=== PATIENT | male | born 1940 | race Caucasian/White ===

== ENCOUNTER 2020-11-25 15:25 | Inpatient (IN) | payer MEDICARE, MEDICAID ==
[~2020-11-25] VITALS: Ht 175.3 cm; Wt 89.3 kg
--- NOTE | 2020-11-25 16:00 | NUR ---
Admission Note with Justification for Admission to [facility] Patient admitted to [facility] for protective oversight for emergency stabilization of acute psychiatric crisis. Pt admitted from: Home via [facility] Mode of arrival: Secure Transport Accompanied By: Secure Transport Precipitating behaviors that initiated intake and admission: Patient was reported to be confused, agitated, delusional, hallucinating, removing IVs, and not cooperating with cares at [facility]. Description of failure of out patient attempts at stabilization in previous setting list behavior and medication trials: Medications and redirection reported to be ineffective. Behaviors and assessment findings upon admission: Patient was cooperative and pleasantly confused at admission. He was forgetful and asked after his belt and cap multiple times. He stated that it was July and that he lived with his mother and two sisters. Patient appeared to have some back acne and swollen scrotum, otherwise no skin issues noted. Otherwise lung sounds CTA, heart sounds irregular and strong, bowel sounds hypoactive on left side, mild edema in right hand, missing teeth and did not bring dentures, and mild hearing loss in both ears. Plan: Admit for protective oversight for adjustment and stabilization of medications, behaviors and mood. Intense treatment regimen including groups, medication adjustments, therapy, consistent regimen for ADL's, self care, and sleep hygiene. Daily monitoring by Inpatient staff, Psychiatry, and Medical Physician.
[2020-11-25] MEDS ORDERED: METHYL SALICYLATE/MENTHOL TOPICAL OINTMENT 57GM TUBE. TP PRN (18:00)
[2020-11-25] MEDS ORDERED: MAGNESIUM HYDROXIDE 2,400 MG/30 ML ORAL.SUSP. PO PRN (18:00)
[2020-11-25] MEDS ORDERED: AMOX500C PO (18:06)
[2020-11-25] MEDS ORDERED: CARV6.25 PO (18:06)
[2020-11-25] MEDS ORDERED: ASPI-630 PO (18:06)
[2020-11-25] MEDS ORDERED: FOLI20CA PO (18:06)
[2020-11-25] MEDS ORDERED: LIDO1ADH TP (18:06)
[2020-11-25] MEDS ORDERED: QUET25TA5 PO (18:06)
[2020-11-25] MEDS ORDERED: ATOR40TA PO (18:06)
[2020-11-25] MEDS ORDERED: LISI10TA16 PO (18:06)
[2020-11-25] MEDS ORDERED: AMLO-187 PO (18:06)
[2020-11-25] MEDS ORDERED: MULT-245 PO (18:06)
[2020-11-25] MEDS ORDERED: THIA100T57 PO (18:06)
[2020-11-25] MEDS ORDERED: TAMS0.4C97 PO (18:06)
[2020-11-25 19:25] VITALS: BP 133/86
[2020-11-25] MEDS: QUEtiapine 25 MG TABLET. PO SCH (20:34)
[2020-11-25] MEDS: ATORVASTATIN CALCIUM 20 MG TABLET PO SCH (20:35)
[2020-11-25] MEDS: AMOXICILLIN 250 MG CAPSULE PO SCH (20:35)
[2020-11-25] MEDS: THIAMINE 100 MG TABLET. PO SCH (20:35)
[2020-11-25] MEDS: CARVEDILOL 6.25 MG TABLET PO SCH (20:35)
[2020-11-25] MEDS: traZODone 50 MG TABLET. PO PRN (21:24)
--- NOTE | 2020-11-25 21:54 | PDOC ---
Exam Note: Gus Note: Please also refer to the separate dictated note~for this date of service dictated separately.~Patient seen individually. Discussed the patient with Nursing staff reviewed the chart.~Reviewed interim history and current functioning. Reviewed vital signs,~Labs/ Radiology~and current medications noted below. Continue current treatment with the changes noted in the dictated addendum note Assessment: Vital Signs/I&O: Vital Signs Date Time Temp Pulse Resp B/P (MAP) Pulse Ox O2 Delivery O2 Flow Rate FiO2 11/25/20 20:35 85 133/86 11/25/20 19:25 96.4 18 98 Current Medications: Meds: Current Medications Medications (Trade) Dose Ordered Sig/Evaristo Route PRN Reason Start Time Stop Time Status Last Admin Dose Admin Carvedilol (Coreg) 6.25 mg BIDWMEALS PO 11/25/20 18:30 11/25/20 20:35 Quetiapine Fumarate (SEROquel) 25 mg QHS PO 11/25/20 21:00 11/25/20 20:34 Amoxicillin (Amoxil) 500 mg [id number] PO 11/25/20 21:00 12/02/20 14:01 11/25/20 20:35 Atorvastatin Calcium (Lipitor) 40 mg QHS PO 11/25/20 21:00 11/25/20 20:35 Thiamine HCl (Vitamin B-1) 100 mg BID PO 11/25/20 21:00 11/25/20 20:35 Olanzapine (ZyPREXA ZYDIS) 2.5 mg PRN Q2HR PRN PO PSYCHOSIS 11/25/20 21:15 11/25/20 21:24 Trazodone HCl (Desyrel) 50 mg PRN QHS PRN PO INSOMNIA, MAY REPEAT IN 1HR 11/25/20 21:15 11/25/20 21:24 I have reviewed the current psychotropics carefully including drug interactions. Risk benefit ratio favors no change other than as noted in my dictated progress note. DONA BOTELLO MD Nov 25, 2020 21:54
--- NOTE | 2020-11-25 23:15 | NUR ---
Pt highly disorganized and restless. Pt wandering unit door checking, exit seeking and intrusive with other patients. Pt compliant with whole medications, asking how much he owes for the pills. Dr. Ramirez paged re pt's restlessness and inability to fall asleep. PRN Trazodone and Zyprexa administered at 2130. Pt taken to [facility] d/t the fact that pt repeatedly entered other pt's rooms. PRNs effective and pt currently sleeping on mat in quiet room. Will continue to monitor.
[2020-11-26] MEDS: traZODone 50 MG TABLET. PO PRN ×2 (01:35→19:52)
[2020-11-26 05:55] VITALS: BP 96/60
[2020-11-26] MEDS: AMOXICILLIN 250 MG CAPSULE PO SCH ×3 (07:54→19:51)
[2020-11-26] MEDS: CARVEDILOL 6.25 MG TABLET PO SCH ×2 (07:55→17:31)
[2020-11-26] MEDS: THIAMINE 100 MG TABLET. PO SCH ×2 (07:55→19:52)
[2020-11-26] MEDS: TAMSULOSIN 0.4 MG CAP.ER.24H. PO SCH (07:58)
[2020-11-26] MEDS: ASPIRIN CHEWABLE 81 MG TABLET. PO SCH (07:58)
[2020-11-26] MEDS: MULTIVITAMIN with MINERAL TABLET. PO SCH (07:58)
[2020-11-26] MEDS: amLODIPine BESYLATE 10 MG TABLET PO SCH (08:00)
--- NOTE | 2020-11-26 08:00 | NUR ---
Ubaldois given for restless behavior.
[2020-11-26] MEDS: LIDOCAINE (700MG/PATCH) PATCH. TD SCH (08:04)
[2020-11-26] MEDS: FOLIC ACID 1 MG TABLET PO SCH (08:05)
[2020-11-26 08:43] LABS: BASO # 0.1 x10^3/uL (0.0-0.2); BASO % 1 % (0-3); EOS # 0.2 x10^3/uL (0.0-0.7); EOS % 2 % (0-3); HEMATOCRIT 42.6 % (39.0-53.0); HEMOGLOBIN 14.8 g/dL (13.0-17.5); LYMPH # 2.2 x10^3/uL (1.0-4.8); LYMPH % 21 % (24-48); MEAN CORPUSCULAR HEMOGLOBIN 31 pg (25-35); MEAN CORPUSCULAR HGB CONC 35 g/dL (31-37); MEAN CORPUSCULAR VOLUME 91 fL (79-100); MONO # 1.1 x10^3/uL (0.0-1.1); MONO % 11 % (0-9); NEUT # 6.8 x10^3uL (1.8-7.7); NEUT % 65 % (31-73); PLATELET COUNT 737 x10^3/uL (140-400); RED BLOOD COUNT 4.71 x10^6/uL (4.30-5.70); WHITE BLOOD COUNT 10.5 x10^3/uL (4.0-11.0)
[2020-11-26 08:56] LABS: ALBUMIN 3.3 g/dL (3.4-5.0); ALBUMIN/GLOBULIN RATIO 0.7 (1.0-1.7); CALCIUM 9.6 mg/dL (8.5-10.1); CREATININE 1.4 mg/dL (0.7-1.3); GFR 48.5; POTASSIUM 3.7 mmol/L (3.5-5.1); TOTAL BILIRUBIN 0.3 mg/dL (0.2-1.0); TOTAL PROTEIN 8.1 g/dL (6.4-8.2)
[2020-11-26] MEDS ORDERED: LISINOPRIL 10 MG TABLET PO SCH (09:00)
[2020-11-26 09:23] LABS: % BANDS 2 % (0-9); % EOS 3 % (0-5); % LYMPHS 22 % (24-48); % MONOS 9 % (0-10); % SEGS 64 % (35-66)
[2020-11-26 09:24] LABS: PLT ESTIMATE INCREASED (ADEQUATE)
[2020-11-26 11:20] LABS: THYROID STIM HORMONE (TSH) 3.44 uIU/mL (0.358-3.740)
--- NOTE | 2020-11-26 13:30 | NUR ---
Zydis was effective in am. Is restless, door checking and looking for his car. Zydis given.
[2020-11-26 15:00] VITALS: BP 135/72
--- NOTE | 2020-11-26 16:38 | NUR ---
Pt has been [facility] for shift. Has been restless and exit seeking. Is asking for Harjit which he says is his girlfriend. Did lie down on couch and on mat for a short period. Has been compliant with meds and cares. Dr Aggarwal here to see pt. Staff had noticed swelling to scrotal area. New order for US.
[2020-11-26] MEDS: ATORVASTATIN CALCIUM 20 MG TABLET PO SCH (19:51)
[2020-11-26] MEDS: MIRTAZAPINE 7.5 MG TABLET. PO SCH (19:52)
[2020-11-26] MEDS: QUEtiapine 25 MG TABLET. PO SCH (19:52)
--- NOTE | 2020-11-26 21:14 | PDOC ---
Exam Note: Gus Note: Please also refer to the separate dictated note~for this date of service dictated separately.~Patient seen individually. Discussed the patient with Nursing staff reviewed the chart.~Reviewed interim history and current functioning. Reviewed vital signs,~Labs/ Radiology~and current medications noted below. Continue current treatment with the changes noted in the dictated addendum note Assessment: Vital Signs/I&O: Vital Signs Date Time Temp Pulse Resp B/P (MAP) Pulse Ox O2 Delivery O2 Flow Rate FiO2 11/26/20 17:31 98 135/72 11/26/20 15:00 98.0 20 97 Room Air I & O 11/25/20 11/25/20 11/26/20 15:00 23:00 07:00 Intake Total 480 ml Balance 480 ml Labs: Laboratory Tests Test 11/26/20 04:30 11/26/20 07:50 Coronavirus (PCR) Not detected (Not Detected) White Blood Count 10.5 x10^3/uL (4.0-11.0) Red Blood Count 4.71 x10^6/uL (4.30-5.70) Hemoglobin 14.8 g/dL (13.0-17.5) Hematocrit 42.6 % (39.0-53.0) Mean Corpuscular Volume 91 fL (79-100) Mean Corpuscular Hemoglobin 31 pg (25-35) Mean Corpuscular Hemoglobin Concent 35 g/dL (31-37) Red Cell Distribution Width 14.0 % (11.5-14.5) Platelet Count 737 x10^3/uL (140-400) H Neutrophils (%) (Auto) 65 % (31-73) Lymphocytes (%) (Auto) 21 % (24-48) L Monocytes (%) (Auto) 11 % (0-9) H Eosinophils (%) (Auto) 2 % (0-3) Basophils (%) (Auto) 1 % (0-3) Neutrophils # (Auto) 6.8 x10^3uL (1.8-7.7) Lymphocytes # (Auto) 2.2 x10^3/uL (1.0-4.8) Monocytes # (Auto) 1.1 x10^3/uL (0.0-1.1) Eosinophils # (Auto) 0.2 x10^3/uL (0.0-0.7) Basophils # (Auto) 0.1 x10^3/uL (0.0-0.2) Segmented Neutrophils % 64 % (35-66) Band Neutrophils % 2 % (0-9) Lymphocytes % 22 % (24-48) L Monocytes % 9 % (0-10) Eosinophils % 3 % (0-5) Platelet Estimate Increased (ADEQUATE) D-Dimer (Anabelle) 1.57 mg/L (0.00-0.50) H Sodium Level 141 mmol/L (136-145) Potassium Level 3.7 mmol/L (3.5-5.1) Chloride Level 103 mmol/L (98-107) Carbon Dioxide Level 26 mmol/L (21-32) Anion Gap 12 (6-14) Blood Urea Nitrogen 26 mg/dL (8-26) Creatinine 1.4 mg/dL (0.7-1.3) H Estimated GFR (Cockcroft-Gault) 48.5 BUN/Creatinine Ratio 19 (6-20) Glucose Level 127 mg/dL (70-99) H Calcium Level 9.6 mg/dL (8.5-10.1) Magnesium Level 2.0 mg/dL (1.8-2.4) Iron Level 44 ug/dL (65-175) L Total Iron Binding Capacity 314 ug/dL (250-450) Iron Saturation 14 % (15-34) L Total Bilirubin 0.3 mg/dL (0.2-1.0) Aspartate Amino Transferase (AST) 30 U/L (15-37) Alanine Aminotransferase (ALT) 43 U/L (16-63) Alkaline Phosphatase 146 U/L (46-116) H Total Protein 8.1 g/dL (6.4-8.2) Albumin 3.3 g/dL (3.4-5.0) L Albumin/Globulin Ratio 0.7 (1.0-1.7) L Triglycerides Level 100 mg/dL (0-150) Cholesterol Level 140 mg/dL (0-200) LDL Cholesterol, Calculated 85 mg/dL (0-100) VLDL Cholesterol, Calculated 20 mg/dL (0-40) Non-HDL Cholesterol Calculated 105 mg/dL (0-129) HDL Cholesterol 35 mg/dL (40-60) L Cholesterol/HDL Ratio 4.0 Thyroid Stimulating Hormone (TSH) 3.440 uIU/mL (0.358-3.740) Current Medications: Meds: Current Medications Medications (Trade) Dose Ordered Sig/Evaristo Route PRN Reason Start Time Stop Time Status Last Admin Dose Admin Aspirin (Aspirin Chewable) 81 mg DAILY PO 11/26/20 09:00 11/26/20 07:58 Tamsulosin HCl (Flomax) 0.4 mg DAILY PO 11/26/20 09:00 11/26/20 07:58 Folic Acid (Folic Acid) 1 mg DAILY PO 11/26/20 09:00 11/26/20 08:05 Lidocaine (Lidoderm) 1 patch DAILY TD 11/26/20 09:00 11/26/20 08:04 Multivitamins/ Calcium (Thera-M Plus) 1 tab DAILY PO 11/26/20 09:00 11/26/20 07:58 Olanzapine (ZyPREXA ZYDIS) 2.5 mg PRN Q2HR PRN PO PSYCHOSIS 11/25/20 21:15 11/26/20 17:31 Trazodone HCl (Desyrel) 50 mg PRN QHS PRN PO INSOMNIA, MAY REPEAT IN 1HR 11/25/20 21:15 11/26/20 19:52 Mirtazapine (Remeron) 7.5 mg QHS PO 11/26/20 21:00 11/26/20 19:52 I have reviewed the current psychotropics carefully including drug interactions. Risk benefit ratio favors no change other than as noted in my dictated progress note. Diagnosis: Problems: (1) Major neurocognitive disorder DONA BOTELLO MD Nov 26, 2020 21:14
--- NOTE | 2020-11-26 22:46 | NUR ---
Pt in [facility] this evening. Pt disorganized, restless, wandering and door checking. Compliant with whole medications. PRN Trazodone administered with HS medications. Pt taken to bed and laid down without incident and is currently sleeping.
--- NOTE | 2020-11-26 22:50 | PN ---
DATE: 11/26/2020 PSYCHIATRIC PROGRESS NOTE This note covers elements not covered in my initial note. SUBJECTIVE: I met with the patient evening of 11/26/2020 on telehealth rounds. Discussed with nursing staff, reviewed the chart. I had also been contacted by the nursing staff earlier in the day on account of the patient's agitation. He has been in the [facility]. This is a highly structured hallway with reduced stimuli. Discussed with PREET Montano. He has been more anxious, restless and paranoid. Nursing staff had called me late last night and we added Zyprexa and trazodone. He is needed the Zyprexa during the day today on account of psychotic symptoms, agitation and mood lability. He has been checking the doors. Slept 3-1/2 hours previous night. REVIEW OF SYSTEMS: No CV, , pulmonary, eye, ENT system symptoms on review. Reliability poor. He does have some scrotal enlargement, possibly inguinal hernia, will defer to Dr. Aggarwal. Additionally, he has a UTI, on Amoxil. MENTAL STATUS EXAM: Oriented to himself. Insight, judgment, recent and remote memory, attention, concentration, fund of knowledge poor, consistent with his diagnosis. IMPRESSION: Major neurocognitive disorder, Alzheimer, vascular with delusion, depression, behavioral disturbance; anxiety disorder, unspecified; impulse control disorder, unspecified; past history of alcohol abuse and urinary tract infection. PLAN: Continue current psychotropics including Seroquel, Zyprexa p.r.n. and trazodone p.r.n. Start Remeron 7.5 mg p.o. at bedtime. Consider adding Zoloft as an antidepressant. We will make further adjustments as clinically indicated. MAN Leena BOTELLO MD DR: CHRISTINA/roxy JOB#: [id number] / [id number]
[2020-11-27 00:06] LABS: THYROXINE 8.4 ug/dL (4.5-12.0)
--- NOTE | 2020-11-27 00:25 | HP ---
ADMIT DATE: 11/25/2020 This late entry date of service 11/25 covers elements not covered in my initial note 11/25. The patient was seen on telehealth rounds evening of 11/25 about 2 hours after he was admitted on our unit. Previously, I had discussed the patient with Mell Agarwal, diabetes education coordinator and with nursing staff and reviewed the referral from [facility]. IDENTIFYING DATA: The patient is an 80-year-old male referred to us from [facility] after he presented there from home on account of increasing confusion, disorganization, inability to take care of himself. Previously, he has been managed at home by his significant other, but after she , he was increasingly confused with a past history of alcohol abuse, progressive dementia, Alzheimer's vascular type. He was agitated, disruptive, dangerous in his behaviors, had failed outpatient psychiatric interventions resulting in this referral. CHIEF COMPLAINT: "I have been here many weeks." HISTORY OF PRESENT ILLNESS: The patient has a history of dementia, Alzheimer's vascular type. He has been living at home, getting progressively more confused and with a past history of alcohol abuse, but still being taken care of at home by Cristo, his significant other. Reportedly, significant other . The patient's memory deficits have increased. He was disorganized, agitated, aggressive with sleep and appetite changes, psychotic symptoms dangerous and taken to [facility] where he was medically stabilized and then referred to us for inpatient psychiatric stabilization. No clear history of bipolar disorder. He is also being increasingly more depressed. PAST PSYCHIATRIC HISTORY: As above. PAST MEDICAL HISTORY: Positive for hypertension, hyperlipidemia, BPH, chronic atrial fibrillation, pacemaker in place, hepatic cysts, bilateral total knee replacement, left hip replacement. History of UTI on Amoxil from [facility]. CODE STATUS: Full code. DRUG ALLERGIES: Negative. DIET: Mechanical soft cardiac diet. ACCU-CHEKS: None. Takes medications whole. Ambulates ad lulú standby assist. UA is awaited. CURRENT PSYCHOTROPICS: At admission, Seroquel 25 mg p.o. at bedtime. After I had evaluated the patient late at night, I was again called by the nursing staff. The patient was getting increasingly agitated, paranoid, psychotic, not sleeping and we did add Zyprexa 2.5 mg q. 2 hours p.r.n. psychosis, agitation, ____ mg in 24 hours and trazodone 50 mg at bedtime p.r.n., may repeat x 1 for insomnia while continuing the Seroquel. FAMILY HISTORY: Noncontributory. SOCIAL HISTORY: As noted above and a past history of alcohol abuse. REVIEW OF SYSTEMS: No CV, , pulmonary, eye, ENT system symptoms on review. Reliability poor. MENTAL STATUS EXAMINATION: The patient is oriented to himself. Insight, judgment, recent and remote memory, attention, concentration, fund of knowledge poor, consistent with his diagnosis. LABORATORY DATA: Reviewed. IMPRESSION: Major neurocognitive disorder; Alzheimer, vascular with delusion; depression; behavioral disturbance; anxiety disorder, unspecified; impulse control disorder, unspecified. Rest diagnoses as above including past history of alcohol abuse. PLAN: Admit to Geropsychiatry Unit at [facility]. I will see the patient daily individually from a psychiatric standpoint. Medical followup per Dr. Aggarwal/Dr. Dowling. Continue the patient on his current psychotropics, Zyprexa was started p.r.n. along with trazodone. Consider adding an SSRI agents. He does have a UTI and remains on Amoxil. Estimated length of stay 10-12 days. DISPOSITION: The patient will need a higher level of care than returning home by himself. MAN Leena BOTELLO MD DR: CHRISTINA/roxy JOB#: [id number] / [id number]
[2020-11-27 05:44] VITALS: BP 133/73
[2020-11-27] MEDS: CARVEDILOL 6.25 MG TABLET PO SCH ×2 (07:30→16:48)
[2020-11-27] MEDS: LIDOCAINE (700MG/PATCH) PATCH. TD SCH (07:30)
[2020-11-27] MEDS: FOLIC ACID 1 MG TABLET PO SCH (07:30)
[2020-11-27] MEDS: ASPIRIN CHEWABLE 81 MG TABLET. PO SCH (07:30)
[2020-11-27] MEDS: amLODIPine BESYLATE 10 MG TABLET PO SCH (07:31)
[2020-11-27] MEDS: TAMSULOSIN 0.4 MG CAP.ER.24H. PO SCH (07:31)
[2020-11-27] MEDS: THIAMINE 100 MG TABLET. PO SCH ×2 (07:31→20:01)
[2020-11-27] MEDS: AMOXICILLIN 250 MG CAPSULE PO SCH ×3 (07:31→20:01)
[2020-11-27] MEDS: MULTIVITAMIN with MINERAL TABLET. PO SCH (07:31)
[2020-11-27] MEDS: LACTOBACILLUS RHAMNOSUS GG 1 CAPSULE. PO SCH ×2 (07:32→20:02)
--- NOTE | 2020-11-27 11:32 | CONS ---
DATE OF CONSULTATION: 11/26/2020 REASON FOR CONSULTATION: Medical management. HISTORY OF PRESENT ILLNESS: The patient is an 80-year-old male patient who was admitted to [facility]. He apparently lives with his girlfriend of 15 years, on November 07. Basically, the patient was found at home intoxicated and sent to [facility]. He apparently was found to be extremely confused and demented, was found to have major neurocognitive disorder vascular with dementia, depression, behavioral disorder, anxiety and impulse control. He was admitted here for inpatient psychiatric stabilization. PAST MEDICAL HISTORY: Significant for hypertension, hyperlipidemia, benign prostatic hypertrophy, chronic atrial fibrillation and alcohol abuse. PAST SURGICAL HISTORY: Significant for bilateral total knee arthroplasty and left hip arthroplasty. He also had a permanent pacemaker placed. PAST PSYCHIATRIC HISTORY: Significant for dementia. FAMILY HISTORY: Noncontributory. SOCIAL HISTORY: He is apparently , has 2 daughters and 1 son. He does not smoke, but he said he would like to drink alcohol, at least 3 cans of beer a week. Does not use any drugs. 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 ALLERGIES: He has no known drug allergies. MEDICATIONS: He is currently on following medications: He is on amoxicillin 500 mg 3 times a day for UTI, tamsulosin 0.4 mg daily, atorvastatin calcium 40 mg at bedtime. He is on carvedilol 6.25 mg twice a day, amlodipine besylate 10 mg once a day, lisinopril 10 mg once a day, aspirin 81 mg once a day, quetiapine fumarate 25 mg at bedtime. He is on LidoPatch 1 topically daily for his lower back, folic acid 1 mg once a day, thiamine 100 mg twice a day, and multivitamin 1 tablet once a day. PHYSICAL EXAMINATION: GENERAL: On examining him, the patient looked well and was clearly in no apparent respiratory distress. There was no pallor, jaundice, cyanosis or thyromegaly. No jugular venous distention. No lower limb edema. VITAL SIGNS: Her heart rate was 85, blood pressure was 133/86, temperature was 97, respiratory rate was 18 and oxygen saturation was 97%. HEAD, EYES, EARS, NOSE AND THROAT: Normocephalic, atraumatic. NECK: Supple. HEART: Normal first and second heart sounds with no gallop, rub or murmur. CHEST: Showed central trachea, equal bilateral chest expansion, air entry, vesicular breath sounds. No crepitation or rhonchi. ABDOMEN: Distended, soft, nontender. No guarding or rigidity. No organomegaly. He has either right inguinal hernia versus right sided hydrocele. The patient did not allow us to examine him properly. NEUROLOGIC: He is definitely demented, but without any obvious lateralizing sign. All his cranial nerves are intact. EXTREMITIES: He moves extremities without difficulty. He ambulates without assistance or assistive devices. LABORATORY DATA: This morning showed a white cell count of 10,500, hemoglobin 15, hematocrit 43, MCV 91, and platelet count of 737,000 with the manual differential showed 65% polymorphs, ____ % lymphocytes, 11% monocytes. His D-dimer was high at 1.57. His chemistry showed a serum sodium 141, potassium 3.7, chloride 103, bicarbonate 26, anion gap of 12, BUN 26, creatinine 1.4, estimated GFR was 48.5 mL per minute, his glucose 127, calcium was 9.6, magnesium 2. Serum iron 44, TIBC 314 and iron saturation was 14. His total bilirubin, AST, ALT were normal. Alkaline phosphatase slightly elevated. Total protein was 8.1, albumin 3.3. Serum triglycerides were 100, total cholesterol 140, LDL was ____, VLDL was 20, HDL was 35, and the ratio was 4. His TSH was 3.44. ASSESSMENT AND PLAN: All in all, the patient seems to be medically stable. His vital signs are all within acceptable range. His lab works are all within acceptable range except that he has thrombocytosis, the platelet count of 737,000. He has impaired kidney function with an estimated GFR of 48.5 mL and creatinine of 1.4. I believe he is probably on excessive antihypertensive medication. I will probably discontinue at least lisinopril for now given impaired kidney function and follow him closely. Thank you Dr. Ramirez for allowing me to participate in the care of this patient. CODY CONROY MD DR: ALIE/roxy JOB#: [id number] / [id number]
--- NOTE | 2020-11-27 14:35 | RAD ---
EXAM: Scrotal sonogram. HISTORY: Swelling. TECHNIQUE: Guzmán scale and color Doppler sonographic imaging of the scrotum with spectral waveform elaine lysis was performed. COMPARISON: None. FINDINGS: The testes are normal in size and demonstrate normal blood flow. There is a 1.5 cm left epi didymal head cyst. There are small left greater than right hydroceles. There is no varicocele. IMPRESSION: 1. Small left greater than right hydroceles. 2. 1.5 cm left epididymal cyst. 3. Unremarkable testes. Electronically signed by: Milly Hitchcock MD (11/27/2020 2:32 PM) [facility]
[2020-11-27 15:00] VITALS: BP 148/80
--- NOTE | 2020-11-27 16:13 | NUR ---
Pt sleepy this am. Did not eat breakfast but woke up to take meds. Agnieszka given as pt to have US of scrotum and was not very receptive to assessment yesterday. Pt tolerated procedure well. Pt woke up to eat lunch but laid back down. Pt up now watching football game. Is in pleasant spirits.
[2020-11-27] MEDS: MIRTAZAPINE 7.5 MG TABLET. PO SCH (20:00)
[2020-11-27] MEDS: ATORVASTATIN CALCIUM 20 MG TABLET PO SCH (20:01)
[2020-11-27] MEDS: traZODone 50 MG TABLET. PO PRN ×2 (20:02→23:30)
[2020-11-27] MEDS: QUEtiapine 25 MG TABLET. PO SCH (20:02)
--- NOTE | 2020-11-27 21:09 | PDOC ---
Exam Note: Gus Note: Please also refer to the separate dictated note~for this date of service dictated separately.~Patient seen individually. Discussed the patient with Nursing staff reviewed the chart.~Reviewed interim history and current functioning. Reviewed vital signs,~Labs/ Radiology~and current medications noted below. Continue current treatment with the changes noted in the dictated addendum note Assessment: Vital Signs/I&O: Vital Signs Date Time Temp Pulse Resp B/P (MAP) Pulse Ox O2 Delivery O2 Flow Rate FiO2 11/27/20 16:48 75 148/80 11/27/20 15:00 98.6 16 98 11/26/20 15:00 Room Air I & O 11/26/20 11/26/20 11/27/20 15:00 23:00 07:00 Intake Total 720 ml 480 ml Balance 720 ml 480 ml Current Medications: Meds: Current Medications Medications (Trade) Dose Ordered Sig/Evaristo Route PRN Reason Start Time Stop Time Status Last Admin Dose Admin Lactobacillus Rhamnosus (Culturelle) 1 cap BID PO 11/27/20 09:00 11/27/20 20:02 I have reviewed the current psychotropics carefully including drug interactions. Risk benefit ratio favors no change other than as noted in my dictated progress note. Diagnosis: Problems: (1) Dementia in Alzheimer's disease with delusions (2) Dementia in Alzheimer's disease with depression (3) Dementia of the Alzheimer's type with early onset with behavioral disturbance (4) Dementia, vascular, with delusions (5) Dementia, vascular, with depression (6) Anxiety disorder, unspecified (7) Impulse control disorder, unspecified (8) UTI (urinary tract infection) (9) Major neurocognitive disorder DONA BOTELLO MD Nov 27, 2020 21:09
--- NOTE | 2020-11-27 22:15 | NUR ---
Pt has been calm and cooperative this evening. Compliant with HS medications and shower. Continues to be disorganized and delusional. No agitation or aggression. PRN Trazodone administered with HS medications. Pt currently sleeping.
--- NOTE | 2020-11-27 23:59 | NUR ---
Patient is in the hallway on assumption of care, ambulating around the unit. He is in pleasant spirits. Disorganized, confused. Less exit seeking than usual, and was easily redirectable. He was compliant with assessment and medications whole. No agitation. Denies any pain or discomfort. Patient appears to be sleeping comfortably at present time. Will continue to monitor.
[2020-11-28 05:47] VITALS: BP 137/88
[2020-11-28] MEDS: TAMSULOSIN 0.4 MG CAP.ER.24H. PO SCH (08:07)
[2020-11-28] MEDS: CARVEDILOL 6.25 MG TABLET PO SCH ×2 (08:07→16:45)
[2020-11-28] MEDS: LACTOBACILLUS RHAMNOSUS GG 1 CAPSULE. PO SCH ×2 (08:07→19:36)
[2020-11-28] MEDS: MULTIVITAMIN with MINERAL TABLET. PO SCH (08:08)
[2020-11-28] MEDS: amLODIPine BESYLATE 10 MG TABLET PO SCH (08:08)
[2020-11-28] MEDS: THIAMINE 100 MG TABLET. PO SCH ×2 (08:08→19:36)
[2020-11-28] MEDS: FOLIC ACID 1 MG TABLET PO SCH (08:08)
[2020-11-28] MEDS: AMOXICILLIN 250 MG CAPSULE PO SCH ×3 (08:08→19:36)
[2020-11-28] MEDS: ASPIRIN CHEWABLE 81 MG TABLET. PO SCH (08:08)
[2020-11-28] MEDS: SERTRALINE 25 MG TABLET. PO SCH (08:13)
[2020-11-28] MEDS: LIDOCAINE (700MG/PATCH) PATCH. TD SCH (08:26)
--- NOTE | 2020-11-28 10:48 | NUR ---
Nursing note: Pt up walking around the unit at shift change wandering into other pt's rooms. He is easily redirected. He is pleasant, compliant with meds whole and cooperative with assessment. He said his lower back hurt a little bit. Scheduled lidocaine patch applied to lower back with good effect. Pt is currently sitting quietly in his room. Will continue to monitor.
--- NOTE | 2020-11-28 12:01 | NUR ---
WEEKLY ACTIVITY THERAPY NOTE Date of Admission: 11/25/2020 Date of AT Assessment: TBD Precipitating behaviors that initiated intake and admission: Patient was reported to be confused, agitated, delusional, hallucinating, removing IVs, and not cooperating with cares at [facility]. Goal aimed: TBD Initial Goal: TBD Weekly progress towards goal: NA Group participation level: zero Weekly highlights: arrived to unit Behaviors observed: scan completed during group on Saturday Plan: meet/ assess Pt Beneficial adaptations:
--- NOTE | 2020-11-28 14:15 | NUR ---
Nursing note: Pt very exit seeking, continuously hitting the button to have the unit door unlocked as well as door checking. Pt is wandering around the unit looking for "Harjit" and is wandering into pt's rooms. Pt was difficult to redirect at that time. PRN given. Will continue to monitor.
--- NOTE | 2020-11-28 15:20 | NUR ---
ACTIVITY THERAPY ASSESSMENT Completed based on observation and interview. Pt. was in his room and agreeable to speak with STATISTICAL DEVELOPER. When asked what type of hobbies or leisure activities he is interested in, he struggled to come up with an answer but talked about how he has always liked to work. STATISTICAL DEVELOPER listed a couple leisure activities for Pt. to reply yes or no to. When asked about TV, he said "somewhat," reading, he said "I love to reading, " music, he laughed and said "country," exercises, he said "I love swimming." When asked what brought him here, he said he was working at [email or web address] for about four years and someone told him he needed to meet with someone at 2:45 today, here. When asked about being or having children, he said he was to Brenna and they had three children, one girl who was 17, a boy who was four years younger and another girl who is really really smart. Pt. said his family enjoys seeing relatives and as far as friends go, he said he gets along with everyone, no problems with anyone. Pt. believes he has been here for four years and thinks he is here for work. He thinks his is outside waiting to pick him up. Pt. has attended a couple groups and has been calm, focused, social and able to recall memory/ trivia answers well. Reports indicate he can be restless, delusional, wanders often and sometimes into other's room. He is generally redirectable. Initial goal aimed to increase engagement and socialization: Pt. will participate in at least one Activity Therapy group per day.
[2020-11-28 16:30] VITALS: BP 142/89
[2020-11-28] MEDS: ATORVASTATIN CALCIUM 20 MG TABLET PO SCH (19:36)
[2020-11-28] MEDS: QUEtiapine 25 MG TABLET. PO SCH (19:36)
[2020-11-28] MEDS: traZODone 50 MG TABLET. PO PRN ×3 (19:38→23:57)
--- NOTE | 2020-11-28 20:45 | PDOC ---
Exam Note: Gus Note: Please also refer to the separate dictated note~for this date of service dictated separately.~Patient seen individually. Discussed the patient with Nursing staff reviewed the chart.~Reviewed interim history and current functioning. Reviewed vital signs,~Labs/ Radiology~and current medications noted below. Continue current treatment with the changes noted in the dictated addendum note Assessment: Vital Signs/I&O: Vital Signs Date Time Temp Pulse Resp B/P (MAP) Pulse Ox O2 Delivery O2 Flow Rate FiO2 11/28/20 16:45 93 142/89 11/28/20 16:30 98.4 20 95 11/28/20 05:47 Room Air I & O 11/27/20 11/27/20 11/28/20 15:00 23:00 07:00 Intake Total 360 ml 340 ml Balance 360 ml 340 ml Current Medications: Meds: Current Medications Medications (Trade) Dose Ordered Sig/Evaristo Route PRN Reason Start Time Stop Time Status Last Admin Dose Admin Sertraline HCl (Zoloft) 25 mg DAILY PO 11/28/20 09:00 11/30/20 09:01 11/28/20 08:13 Mirtazapine (Remeron) 15 mg QHS PO 11/28/20 21:00 11/28/20 19:38 I have reviewed the current psychotropics carefully including drug interactions. Risk benefit ratio favors no change other than as noted in my dictated progress note. Diagnosis: Problems: (1) Major neurocognitive disorder (2) Impulse control disorder, unspecified (3) Anxiety disorder, unspecified (4) Dementia, vascular, with depression (5) Dementia, vascular, with delusions (6) Dementia in Alzheimer's disease with depression (7) Dementia in Alzheimer's disease with delusions (8) Dementia of the Alzheimer's type with early onset with behavioral disturbance DONA BOTELLO MD Nov 28, 2020 20:45
[2020-11-28] MEDS ORDERED: MIRTAZAPINE 15 MG TABLET PO SCH (21:00)
[2020-11-28] MEDS ORDERED: LORazepam 0.5 MG TABLET PO PRN (21:45)
[2020-11-28] MEDS: hydrOXYzine HCL 25 MG TABLET PO PRN (21:58)
--- NOTE | 2020-11-28 22:42 | NUR ---
Pt located in [facility] this evening. Pt highly disorganized, wandering, door checking and exit seeking. Pt asking staff "how to get out of here" and "where is the banda?" Compliant with whole medications. PRN Trazodone and Zyprexa administered with HS medications. Pt taken to bed where he was restless, repeatedly getting up and down and undressing. Repeat Trazodone administered at 2130. Pt became agitated and combative with redirection; yelling attempting to swing, kick, hit and bite staff. Pt taken back to [facility]. Dr. James fabian and orders received. PRN Atarax administered at 2200. Pt continues to be restless, exit seeking, door checking and asking for the banda to leave. Will continue to monitor.
--- NOTE | 2020-11-29 04:19 | NUR ---
Pt has been awake all night. Pt in [facility] wandering, door checking, asking for keys stating he needs to leave. Multiple PRNs have not been effective.
[2020-11-29 05:38] VITALS: BP 163/89
--- NOTE | 2020-11-29 08:08 | PDOC ---
Exam Note: Gus Note: This note is a late entry for 11/27/2020 covers elements not covered in my initial note. Subjective: The patient was reviewed on telehealth rounds in the evening of 11/27/2020 with Shanique OVIEDO. Discussed with nursing staff, reviewed the chart. The patient slept 8-1/4 hours previous night. Previous night, he was anxious, restless, delusional, confused. Received Zyprexa Zydis. He did have ultrasound of the scrotum because of the mass. Later in the day he appeared somewhat sedated, urinated on the floor. He remains anxious. Review of Systems: No CV, , pulmonary, eye, ENT system symptoms on review. Reliability poor. Mental Status Exam: The patient is oriented to himself. Insight and judgment, recent and remote memory, attention and concentration, fund of knowledge is poor consistent with his diagnosis mentioned. Laboratory Data: Reviewed. Impression: Major neurocognitive disorder Alzheimer vascular with delusion, depression, behavioral disturbance. Anxiety disorder unspecified. Impulse control disorder unspecified. Plan: No change from initial note. Start Zoloft 25 mg a day and in 3 days go up to 50 mg a day. Rest unchanged. Assessment: Vital Signs/I&O: Vital Signs Date Time Temp Pulse Resp B/P (MAP) Pulse Ox O2 Delivery O2 Flow Rate FiO2 11/29/20 05:38 98.2 93 18 163/89 (113) 96 11/28/20 05:47 Room Air I & O 11/28/20 11/28/20 11/29/20 15:00 23:00 07:00 Intake Total 600 ml 360 ml Balance 600 ml 360 ml Current Medications: Meds: Current Medications Medications (Trade) Dose Ordered Sig/Evaristo Route PRN Reason Start Time Stop Time Status Last Admin Dose Admin Acetaminophen (Tylenol) 650 mg PRN Q6HRS PRN PO MILD PAIN / TEMP > 100.3'F 11/25/20 18:00 Multi-Ingredient Ointment (Analgesic [place]) 1 addison PRN QID PRN TP MUSCLE PAIN 11/25/20 18:00 Al Hydroxide/Mg Hydroxide (Mylanta Plus Xs) 15 ml PRN AFTMEALHC PRN PO DYSPEPSIA 11/25/20 18:00 Magnesium Hydroxide (Milk Of Magnesia) 2,400 mg PRN QHS PRN PO CONSTIPATION 11/25/20 18:00 Amlodipine Besylate (Norvasc) 10 mg DAILY PO 11/26/20 09:00 11/28/20 08:08 Aspirin (Aspirin Chewable) 81 mg DAILY PO 11/26/20 09:00 11/28/20 08:08 Carvedilol (Coreg) 6.25 mg BIDWMEALS PO 11/25/20 18:30 11/28/20 16:45 Lisinopril (Prinivil) 10 mg DAILY PO 11/26/20 09:00 11/26/20 16:16 DC Quetiapine Fumarate (SEROquel) 25 mg QHS PO 11/25/20 21:00 11/28/20 19:36 Tamsulosin HCl (Flomax) 0.4 mg DAILY PO 11/26/20 09:00 11/28/20 08:07 Amoxicillin (Amoxil) 500 mg [id number] PO 11/25/20 21:00 12/02/20 14:01 11/28/20 19:36 Atorvastatin Calcium (Lipitor) 40 mg QHS PO 11/25/20 21:00 11/28/20 19:36 Folic Acid (Folic Acid) 1 mg DAILY PO 11/26/20 09:00 11/28/20 08:08 Lidocaine (Lidoderm) 1 patch DAILY TD 11/26/20 09:00 11/28/20 08:26 Multivitamins/ Calcium (Thera-M Plus) 1 tab DAILY PO 11/26/20 09:00 11/28/20 08:08 Thiamine HCl (Vitamin B-1) 100 mg BID PO 11/25/20 21:00 11/28/20 19:36 Olanzapine (ZyPREXA ZYDIS) 2.5 mg PRN Q2HR PRN PO PSYCHOSIS 11/25/20 21:15 11/28/20 19:39 Trazodone HCl (Desyrel) 50 mg PRN QHS PRN PO INSOMNIA, MAY REPEAT IN 1HR 11/25/20 21:15 11/28/20 23:57 Mirtazapine (Remeron) 7.5 mg QHS PO 11/26/20 21:00 11/28/20 12:23 DC 11/27/20 20:00 Lactobacillus Rhamnosus (Culturelle) 1 cap BID PO 11/27/20 09:00 11/28/20 19:36 Sertraline HCl (Zoloft) 25 mg DAILY PO 11/28/20 09:00 11/30/20 09:01 11/28/20 08:13 Sertraline HCl (Zoloft) 50 mg DAILY PO 12/01/20 09:00 Mirtazapine (Remeron) 15 mg QHS PO 11/28/20 21:00 11/28/20 19:38 Hydroxyzine HCl (Atarax) 25 mg PRN Q2HR PRN PO ABDOMINAL CRAMPS 11/28/20 21:45 11/28/20 21:58 Lorazepam (Ativan) 0.5 mg PRN Q4HRS PRN PO ANXIETY / AGITATION 11/28/20 21:45 11/29/20 21:45 Current Medications Medications (Trade) Dose Ordered Sig/Evaristo Route PRN Reason Start Time Stop Time Status Last Admin Dose Admin Sertraline HCl (Zoloft) 25 mg DAILY PO 11/28/20 09:00 11/30/20 09:01 11/28/20 08:13 Mirtazapine (Remeron) 15 mg QHS PO 11/28/20 21:00 11/28/20 19:38 Hydroxyzine HCl (Atarax) 25 mg PRN Q2HR PRN PO ABDOMINAL CRAMPS 11/28/20 21:45 11/28/20 21:58 I have reviewed the current psychotropics carefully including drug interactions. Risk benefit ratio favors no change other than as noted in my dictated progress note. Diagnosis: Problems: (1) Major neurocognitive disorder (2) Impulse control disorder, unspecified (3) Anxiety disorder, unspecified (4) Dementia, vascular, with depression (5) Dementia, vascular, with delusions (6) Dementia in Alzheimer's disease with depression (7) Dementia in Alzheimer's disease with delusions (8) Dementia of the Alzheimer's type with early onset with behavioral disturbance DONA BOTELLO MD Nov 29, 2020 08:08
--- NOTE | 2020-11-29 08:11 | PDOC ---
Exam Note: Gus Note: This note is a late entry for 11/28/2020 covers elements not covered in my initial note. Subjective: The patient was reviewed on telehealth rounds in the morning of 11/28/2020 for a treatment team meeting with Mell Larios and Denise (social service coordinator), Mikayla, activity therapy and Radha OVIEDO. Discussed with nursing staff, reviewed the chart. The patient slept 4 hours previous night. Appetite is 75%. Reviewed history, progress at some length. He does have emergency guardian. He has been wandering, redirectable. He did attend groups in the morning, calmer but by the evening he was quite agitated. In fact I got a call around 9.30 p.m. well after my rounds. The patient was agitated and had been placed in the [facility] per Shanique OVIEDO. He was aggressive towards staff and had failed the addition of Zyprexa p.r.n. We have added hydroxyzine p.r.n. along with Ativan the latter p.r.n. for the next 24 hours only and he will also receive the h.s. trazodone early to help him sleep. Review of Systems: No CV, , pulmonary, eye, ENT system symptoms on review. R eliability poor. Mental Status Exam: The patient is oriented to himself. He is quite agitated, anxious, labile in his mood. Insight and judgment, recent and remote memory, attention and concentration, fund of knowledge is poor consistent with his diagn osis mentioned. No suicidal or homicidal ideation. Laboratory Data: Reviewed. Impression: Major neurocognitive disorder Alzheimer vascular with delusion, depression, behavioral disturbance. Anxiety disorder unspecified. Impulse control disorder unspecified. Plan: No change from initial note. We will go ahead and increase the Remeron to 15 mg h.s. Continue rest of the psychotropics unchanged. Make further adjustments as clinically indicated, Seroquel 25 mg h.s., Zyprexa p.r.n., Zoloft to be gradually increased. Rest unchanged. Assessment: Vital Signs/I&O: Vital Signs Date Time Temp Pulse Resp B/P (MAP) Pulse Ox O2 Delivery O2 Flow Rate FiO2 11/29/20 05:38 98.2 93 18 163/89 (113) 96 11/28/20 05:47 Room Air I & O 11/28/20 11/28/20 11/29/20 15:00 23:00 07:00 Intake Total 600 ml 360 ml Balance 600 ml 360 ml Current Medications: Meds: Current Medications Medications (Trade) Dose Ordered Sig/Evaristo Route PRN Reason Start Time Stop Time Status Last Admin Dose Admin Acetaminophen (Tylenol) 650 mg PRN Q6HRS PRN PO MILD PAIN / TEMP > 100.3'F 11/25/20 18:00 Multi-Ingredient Ointment (Analgesic [place]) 1 addison PRN QID PRN TP MUSCLE PAIN 11/25/20 18:00 Al Hydroxide/Mg Hydroxide (Mylanta Plus Xs) 15 ml PRN AFTMEALHC PRN PO DYSPEPSIA 11/25/20 18:00 Magnesium Hydroxide (Milk Of Magnesia) 2,400 mg PRN QHS PRN PO CONSTIPATION 11/25/20 18:00 Amlodipine Besylate (Norvasc) 10 mg DAILY PO 11/26/20 09:00 11/28/20 08:08 Aspirin (Aspirin Chewable) 81 mg DAILY PO 11/26/20 09:00 11/28/20 08:08 Carvedilol (Coreg) 6.25 mg BIDWMEALS PO 11/25/20 18:30 11/28/20 16:45 Lisinopril (Prinivil) 10 mg DAILY PO 11/26/20 09:00 11/26/20 16:16 DC Quetiapine Fumarate (SEROquel) 25 mg QHS PO 11/25/20 21:00 11/28/20 19:36 Tamsulosin HCl (Flomax) 0.4 mg DAILY PO 11/26/20 09:00 11/28/20 08:07 Amoxicillin (Amoxil) 500 mg [id number] PO 11/25/20 21:00 12/02/20 14:01 11/28/20 19:36 Atorvastatin Calcium (Lipitor) 40 mg QHS PO 11/25/20 21:00 11/28/20 19:36 Folic Acid (Folic Acid) 1 mg DAILY PO 11/26/20 09:00 11/28/20 08:08 Lidocaine (Lidoderm) 1 patch DAILY TD 11/26/20 09:00 11/28/20 08:26 Multivitamins/ Calcium (Thera-M Plus) 1 tab DAILY PO 11/26/20 09:00 11/28/20 08:08 Thiamine HCl (Vitamin B-1) 100 mg BID PO 11/25/20 21:00 11/28/20 19:36 Olanzapine (ZyPREXA ZYDIS) 2.5 mg PRN Q2HR PRN PO PSYCHOSIS 11/25/20 21:15 11/28/20 19:39 Trazodone HCl (Desyrel) 50 mg PRN QHS PRN PO INSOMNIA, MAY REPEAT IN 1HR 11/25/20 21:15 11/28/20 23:57 Mirtazapine (Remeron) 7.5 mg QHS PO 11/26/20 21:00 11/28/20 12:23 DC 11/27/20 20:00 Lactobacillus Rhamnosus (Culturelle) 1 cap BID PO 11/27/20 09:00 11/28/20 19:36 Sertraline HCl (Zoloft) 25 mg DAILY PO 11/28/20 09:00 11/30/20 09:01 11/28/20 08:13 Sertraline HCl (Zoloft) 50 mg DAILY PO 12/01/20 09:00 Mirtazapine (Remeron) 15 mg QHS PO 11/28/20 21:00 11/28/20 19:38 Hydroxyzine HCl (Atarax) 25 mg PRN Q2HR PRN PO ABDOMINAL CRAMPS 11/28/20 21:45 11/28/20 21:58 Lorazepam (Ativan) 0.5 mg PRN Q4HRS PRN PO ANXIETY / AGITATION 11/28/20 21:45 11/29/20 21:45 Current Medications Medications (Trade) Dose Ordered Sig/Evaristo Route PRN Reason Start Time Stop Time Status Last Admin Dose Admin Sertraline HCl (Zoloft) 25 mg DAILY PO 11/28/20 09:00 11/30/20 09:01 11/28/20 08:13 Mirtazapine (Remeron) 15 mg QHS PO 11/28/20 21:00 11/28/20 19:38 Hydroxyzine HCl (Atarax) 25 mg PRN Q2HR PRN PO ABDOMINAL CRAMPS 11/28/20 21:45 11/28/20 21:58 I have reviewed the current psychotropics carefully including drug interactions. Risk benefit ratio favors no change other than as noted in my dictated progress note. Diagnosis: Problems: (1) Major neurocognitive disorder (2) Impulse control disorder, unspecified (3) Anxiety disorder, unspecified (4) Dementia, vascular, with depression (5) Dementia, vascular, with delusions (6) Dementia in Alzheimer's disease with depression (7) Dementia in Alzheimer's disease with delusions (8) Dementia of the Alzheimer's type with early onset with behavioral disturbance DONA BOTELLO MD Nov 29, 2020 08:11
[2020-11-29] MEDS: CARVEDILOL 6.25 MG TABLET PO SCH ×2 (08:47→17:43)
[2020-11-29] MEDS: TAMSULOSIN 0.4 MG CAP.ER.24H. PO SCH (08:47)
[2020-11-29] MEDS: MULTIVITAMIN with MINERAL TABLET. PO SCH (08:48)
[2020-11-29] MEDS: FOLIC ACID 1 MG TABLET PO SCH (08:48)
[2020-11-29] MEDS: AMOXICILLIN 250 MG CAPSULE PO SCH ×3 (08:48→19:47)
[2020-11-29] MEDS: SERTRALINE 25 MG TABLET. PO SCH (08:48)
[2020-11-29] MEDS: amLODIPine BESYLATE 10 MG TABLET PO SCH (08:48)
[2020-11-29] MEDS: ASPIRIN CHEWABLE 81 MG TABLET. PO SCH (08:48)
[2020-11-29] MEDS: THIAMINE 100 MG TABLET. PO SCH ×2 (08:48→19:46)
[2020-11-29] MEDS: LACTOBACILLUS RHAMNOSUS GG 1 CAPSULE. PO SCH ×2 (08:48→19:47)
[2020-11-29] MEDS: LIDOCAINE (700MG/PATCH) PATCH. TD SCH (08:49)
--- NOTE | 2020-11-29 12:30 | NUR ---
Nursing note: Pt laying on the floor in the quiet sarkar at shift change. He was talking as if he was having a conversation with someone not there. Pt is med compliant and cooperative this morning, but has been very restless and wandering around the unit. Pt is currently sitting in his room eating lunch. Will continue to monitor.
--- NOTE | 2020-11-29 15:08 | NUR ---
PSYCHOSOCIAL ASSESSMENT ADMISSION DATE: 11/25/20 CONTACT INFORMATION: DPOA/Guardian Contact Name: Maxwell Martinez- Temporary guardian Contact Phone #: [phone] ETHNIC ORIGIN: REASONS FOR ADMISSION: Aggressive Agitated Alcohol Abuse Anxiety/Panic Combative Confusion/Disoriented Delusions Hallucinations Poor impulse control Sig. Change Sleep ADDITIONAL ADMISSION COMMENTS: Per intake record, hallucinating, delusional, aggressive during rosa m care, confused, restless, nonsensical speech, anxious, insomnia, poor safety, pulled out IV, uncooperative, agitated, and yelling out. REASON FOR ADMISSION IN PATIENT/FAMILY'S OWN WORDS: Per Scottie, " Love and caring about her and my family." Per guardian, Scottie's significant other, Harjit Moreno, was providing care to him at the mobile home where they lived together. Harjit had medical issues and around 11/07/20. Scottie is unsafe to live alone with his level of memory impairment. PATIENT/FAMILY EXPECTATIONS FOR ADMISSION: Per Scottie, "I hope to conquer even better and us get along." Per guardian, determining Scottie's financial situation in order to pay for alf care. LIVING SITUATION: Patient lives with: Home, previously with girlfriend who recently Address: [facility] [address] [place] [id number] FAMILY RELATIONS: Marital Status: # of Marriages: 1 # of Children: 3 [facility] Family Support: Uninvolved Additional Comments r/t Family: Scottie spoke of being to Brenna Vazquez and having three children with her. Scottie stated they were when he was 16 and Brenna was 15. Their daughter Tim lives in [place] and Scottie shared that she has a learning disability or mental illness. Daughter, Emiliana, lives in [place]. Son, Sage Singh lives in [place]. SIGNIFICANT PSYCHIATRIC/MEDICAL HISTORY: Psychiatric/Treatment History: Scottie reported that he had some counseling after his father . Scottie also reported that he has attended AA support groups. Pertinent Family History: Scottie thinks his Dad "may have drank to much." Scottie also spoke of his son, Sage Singh, having alcohol dependence. Scottie reported his brother, Sergio, had a temper. HISTORICAL DATA: Childhood Environment: Stressful Childhood Environment Additional Comments: Scottie reported being born in [facility] to Nahun and Yanique Son. Scottie's father worked as a hospital wax pattern assembler but when Scottie was a young boy. 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 Scottie reported being the seventh child born on 8. He stated he had siblings named Cindy, Violet, Fredi, Sergio, Yumiko, Scottie, Silvia, and Francisca. Trauma History: None reported. Scottie denied being abused or neglected throughout his life. Drug Abuse History last 12 months: None reported. Comment: Scottie reported drinking three beers on the weekend. He denied smoking or using recreational drugs. 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 service: None Methodist background: Scottie reported being a member of the [employer] in [place]. He stated he has not been attending services. Sexual orientation: Heterosexual Educational Level: Scottie reported graduating high school. Past/Present Interests/Hobbies: Scottie reported enjoying basketball, swimming, road racing older cars, and [employer] music. Financial support/resources: Mcfp/Pension Social Security Monthly income: unknown Person handling finances: Maxwell Martinez Do you have a history of legal problems: None Cultural considerations: None reported SOCIAL RELATIONSHIPS-CURRENT/PAST: Psychiatrist: None PCP: Dr. Tanner Khan Counselor/Therapist: None Veterans' Administration: N/A Support Group: AA support in past School Janitor/Silhouette Artist: None STRENGTHS & WEAKNESSES: Patient's strengths: Ambulatory Approachable Other patient strengths: Able to express basic needs Patient's weaknesses: Poor family support Health problems Other patient weaknesses: Impaired memory PRELIMINARY PLAN OF TREATMENT: Preliminary plan: Dec. Anxiety/Panic Dec. Hallucination/Delus Medication Stabilization Monitor Med Effects Control abnormal behavior Dec. Outbursts Dec. Aggression Other preliminary treatment comments: Scottie will be encouraged to attend SW and recreational therapy groups while on the unit. DISCHARGE PLANNING: Discharge planning/disposition: Placement Needed Additional discharge needs identified: Scottie will need placement due to memory impairment. ADDITIONAL INFORMATION: Other Pertinent Data: SW met with Scottie on 11/29/20 to support related to recent admission and complete psychosocial assessment. Scottie was alert and oriented to himself only. He recalled the date as May 25, 2010 and believed he was at [facility] in [facility]. He spoke about his mother as if she were alive and believed he was around the age of 38. Scottie also spoke as if his children were still small. While he appeared to recall some remote history, SW is unsure of the accuracy of the information Scottie provided. Call placed to temporary guardian, Maxwell Martinez, who reported that most recently Scottie had lived in a mobile home with his significant other, Harjit Tiffanie, who cared for Scottie. Harjit around 11/07/20. Scottie is unsafe to reside alone with the current level of memory impairment he has. Maxwell is currently attempting to work with Scottie's bank trying to determine finances in order to determine if a medicaid application will have to be filled out in order to pay for alf care for Scottie. Maxwell declined to be involved in treatment team meeting but does want to know recommendations regarding Scottie.
[2020-11-29 16:14] VITALS: BP 131/78
--- NOTE | 2020-11-29 16:31 | TX PLAN ---
Interdisciplinary Tx Plan Admission Information Nov 25, 2020 at 15:25 Legal Status (on Admission): Voluntary, Court Appointed Guardian, Court Appointed Conservat DPOA/Guardian Name: Maxwell Martinez- guardian Contact Verified Code Status: Full Code Allergies: Coded Allergies: No Known Drug Allergies (Unverified , 11/25/20) Estimated Length of Stay: 14 Diagnoses Primary Diagnosis: Major neurocognitive d/o, vascular, alzheimers with delusions, depresion, BD; Anxiety d/o unspecified; impulse control d/o Reasons for Admission: Aggressive, Delusions, Agitated, Alcohol Abuse, Sig. Change Sleep, Anxiety/Panic, Hallucinations, Combative, Confusion/Disoriented, Poor impulse control Problem in Patient's Words: Per Scottie, " Love and caring about her and my family." Per guardian, unsafe to live at home alone with level of confusion and memory impairment. Additional Admission Comments: Per intake record, hallucinating, delusional, aggressive during ro[facility] care, confused, restless, nonsensical speech, anxious, insomnia, poor safety, pulled out IV, uncooperative, agitated, and yelling out. Problems Active Problems: Confused Delsuional Hallucinating Wandering, intrusive, restless Poor sleep Inactive Problems: Adequate meal intake Compliant with meds Pt Strengths/Limitations Ability for [place]: Poor Cognitive Functioning/Ability: Poor Communication Skills/Ability: Fair Financial Resources: Fair Insight/Judgement: Poor Intellectual Ability: Fair Physical Health: Fair Social Skills: Fair Stability in Family: Poor Verbal Skills: Fair Discharge Criteria Discharge Criteria: Adequate arrangements @DC, Improved behavior, Improved mood/thought Preliminary Discharge Plan Preliminary DC Plan: Placement Needed Special Precautions Special Precautions: Agitation/Assault Fall Risk: High Initial D/C Plan Scottie will need placement. [facility] is in the process of determining if a medicaid applincation will need to be filed to pay for [facility] care. Identified Discharge Needs: Scottie will need placement due to memory impairment. Currently Utilized Resources Currently Utilized Resources/P: PCP Referrals Community Resources: Placement referral PCP Psychiatry if available Identified Problems/Hx/Goals Objectives/Short-Term Goals Short Term Goals: Control abnormal behavior, Dec. Aggression, Dec. Anxiety/Panic, Dec. Hallucination/Delus, Dec. Outbursts, Medication Stabilization, Monitor Med Effects Short Term Goals in Patient's: Melvin Rubin, "I hope to conquer even better and us get along." Interventions/Frequency Staff Interventions/Frequency&: Nursing to provide routine safety checks, medication administration, and adl support. Psychiatry thre times weekly. SW visits twice weekly. Recreational and SW groups as Scottie will participate. 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 Social: Scottie enjoys basketball, swimming, and country music. Education: Scottie reported graduating high school. Community Follow-up PCP Psychiatry if available Placement referral Community Provider/Family Inpu: Treatment team meeting was held on 11/28/20. talent advisor of treatment plan was enterred on 11/29/20. Maxwell, guardian, declined to be involed in team meetings but does want to know any recommendations concerning Scottie. 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
[2020-11-29] MEDS: QUEtiapine 25 MG TABLET. PO SCH (19:46)
[2020-11-29] MEDS: ATORVASTATIN CALCIUM 20 MG TABLET PO SCH (19:47)
[2020-11-29] MEDS: AMITRIPTYLINE HCL 25 MG TABLET PO SCH (19:48)
[2020-11-29] MEDS: MELATONIN 3 MG TABLET PO SCH (19:48)
--- NOTE | 2020-11-29 20:43 | PDOC ---
Exam Note: Gus Note: Please also refer to the separate dictated note~for this date of service dictated separately.~Patient seen individually. Discussed the patient with Nursing staff reviewed the chart.~Reviewed interim history and current functioning. Reviewed vital signs,~Labs/ Radiology~and current medications noted below. Continue current treatment with the changes noted in the dictated addendum note Assessment: Vital Signs/I&O: Vital Signs Date Time Temp Pulse Resp B/P (MAP) Pulse Ox O2 Delivery O2 Flow Rate FiO2 11/29/20 17:43 68 131/78 11/29/20 16:14 97.3 18 98 11/28/20 05:47 Room Air I & O 11/28/20 11/28/20 11/29/20 15:00 23:00 07:00 Intake Total 600 ml 360 ml Balance 600 ml 360 ml Current Medications: Meds: Current Medications Medications (Trade) Dose Ordered Sig/Evaristo Route PRN Reason Start Time Stop Time Status Last Admin Dose Admin Acetaminophen (Tylenol) 650 mg PRN Q6HRS PRN PO MILD PAIN / TEMP > 100.3'F 11/25/20 18:00 Multi-Ingredient Ointment (Analgesic [place]) 1 addison PRN QID PRN TP MUSCLE PAIN 11/25/20 18:00 Al Hydroxide/Mg Hydroxide (Mylanta Plus Xs) 15 ml PRN AFTMEALHC PRN PO DYSPEPSIA 11/25/20 18:00 Magnesium Hydroxide (Milk Of Magnesia) 2,400 mg PRN QHS PRN PO CONSTIPATION 11/25/20 18:00 Amlodipine Besylate (Norvasc) 10 mg DAILY PO 11/26/20 09:00 11/29/20 08:48 Aspirin (Aspirin Chewable) 81 mg DAILY PO 11/26/20 09:00 11/29/20 08:48 Carvedilol (Coreg) 6.25 mg BIDWMEALS PO 11/25/20 18:30 11/29/20 17:43 Lisinopril (Prinivil) 10 mg DAILY PO 11/26/20 09:00 11/26/20 16:16 DC Quetiapine Fumarate (SEROquel) 25 mg QHS PO 11/25/20 21:00 11/29/20 19:46 Tamsulosin HCl (Flomax) 0.4 mg DAILY PO 11/26/20 09:00 11/29/20 08:47 Amoxicillin (Amoxil) 500 mg [id number] PO 11/25/20 21:00 12/02/20 14:01 11/29/20 19:47 Atorvastatin Calcium (Lipitor) 40 mg QHS PO 11/25/20 21:00 11/29/20 19:47 Folic Acid (Folic Acid) 1 mg DAILY PO 11/26/20 09:00 11/29/20 08:48 Lidocaine (Lidoderm) 1 patch DAILY TD 11/26/20 09:00 11/29/20 08:49 Multivitamins/ Calcium (Thera-M Plus) 1 tab DAILY PO 11/26/20 09:00 11/29/20 08:48 Thiamine HCl (Vitamin B-1) 100 mg BID PO 11/25/20 21:00 11/29/20 19:46 Olanzapine (ZyPREXA ZYDIS) 2.5 mg PRN Q2HR PRN PO PSYCHOSIS 11/25/20 21:15 11/28/20 19:39 Trazodone HCl (Desyrel) 50 mg PRN QHS PRN PO INSOMNIA, MAY REPEAT IN 1HR 11/25/20 21:15 11/28/20 23:57 Mirtazapine (Remeron) 7.5 mg QHS PO 11/26/20 21:00 11/28/20 12:23 DC 11/27/20 20:00 Lactobacillus Rhamnosus (Culturelle) 1 cap BID PO 11/27/20 09:00 11/29/20 19:47 Sertraline HCl (Zoloft) 25 mg DAILY PO 11/28/20 09:00 11/30/20 09:01 11/29/20 08:48 Sertraline HCl (Zoloft) 50 mg DAILY PO 12/01/20 09:00 Mirtazapine (Remeron) 15 mg QHS PO 11/28/20 21:00 11/29/20 18:47 DC 11/28/20 19:38 Hydroxyzine HCl (Atarax) 25 mg PRN Q2HR PRN PO ABDOMINAL CRAMPS 11/28/20 21:45 11/28/20 21:58 Lorazepam (Ativan) 0.5 mg PRN Q4HRS PRN PO ANXIETY / AGITATION 11/28/20 21:45 11/29/20 21:45 Amitriptyline HCl (Elavil) 25 mg QHS PO 11/29/20 21:00 11/29/20 19:48 Melatonin (Melatonin) 3 mg QHS PO 11/29/20 21:00 11/29/20 19:48 Current Medications Medications (Trade) Dose Ordered Sig/Evaristo Route PRN Reason Start Time Stop Time Status Last Admin Dose Admin Mirtazapine (Remeron) 15 mg QHS PO 11/28/20 21:00 11/29/20 18:47 DC 11/28/20 19:38 Hydroxyzine HCl (Atarax) 25 mg PRN Q2HR PRN PO ABDOMINAL CRAMPS 11/28/20 21:45 11/28/20 21:58 Amitriptyline HCl (Elavil) 25 mg QHS PO 11/29/20 21:00 11/29/20 19:48 Melatonin (Melatonin) 3 mg QHS PO 11/29/20 21:00 11/29/20 19:48 I have reviewed the current psychotropics carefully including drug interactions. Risk benefit ratio favors no change other than as noted in my dictated progress note. Diagnosis: Problems: (1) Major neurocognitive disorder (2) Impulse control disorder, unspecified (3) Anxiety disorder, unspecified (4) Dementia, vascular, with depression (5) Dementia, vascular, with delusions (6) Dementia in Alzheimer's disease with depression (7) Dementia in Alzheimer's disease with delusions (8) Dementia of the Alzheimer's type with early onset with behavioral disturbance DONA BOTELLO MD Nov 29, 2020 20:43
--- NOTE | 2020-11-29 21:45 | NUR ---
Patient was in the west hallway at the beginning of the shift. He was pulling on the door handles and thought he could hear "Tari" talking to him. He would look down the hallway and anytime he saw someone he said it was Tari coming to pick him up. Nurse showed him laundry room and day room and that there was no one in there and yet he continued to knock on the doors and call for Tari. Patient compliant with medications, interactive and social however only oriented to himself and forgetful. He stated we are in [facility] and he is waiting for a ride home. At one point patient told this nurse "you and your need to walk over", and stated I was his neighbor. Patient eventually fell asleep in the chair at around 2130 and was guided to his room to lay down. This was patients first night on melatonin and amitriptyline to help with his insomnia. Will continue to monitor.
[2020-11-30 05:48] VITALS: BP 159/90
[2020-11-30] MEDS: FOLIC ACID 1 MG TABLET PO SCH (08:39)
[2020-11-30] MEDS: AMOXICILLIN 250 MG CAPSULE PO SCH ×3 (08:39→19:44)
[2020-11-30] MEDS: LACTOBACILLUS RHAMNOSUS GG 1 CAPSULE. PO SCH ×2 (08:39→19:44)
[2020-11-30] MEDS: MULTIVITAMIN with MINERAL TABLET. PO SCH (08:39)
[2020-11-30] MEDS: ASPIRIN CHEWABLE 81 MG TABLET. PO SCH (08:39)
[2020-11-30] MEDS: TAMSULOSIN 0.4 MG CAP.ER.24H. PO SCH (08:39)
[2020-11-30] MEDS: SERTRALINE 25 MG TABLET. PO SCH (08:39)
--- NOTE | 2020-11-30 08:39 | NUR ---
On 11/29/20, MARY met with Scottie to complete substance abuse/chemical dependency assessment. Scottie is alert and oriented only to himself. He has difficulty recalling recent and remote events. MARY completed the assessment to the best of ones ability knowing that Scottie's responses are not reliable. When asked if Scottie wanted a referral for substance abuse treatment services, Scottie declined. Scottie has been appointed a temporary guardian and conservator and will need placement upon d/c for safety and supervision.
[2020-11-30] MEDS: THIAMINE 100 MG TABLET. PO SCH ×2 (08:40→19:44)
[2020-11-30] MEDS: LIDOCAINE (700MG/PATCH) PATCH. TD SCH ×2 (08:40→08:47)
[2020-11-30] MEDS: CARVEDILOL 6.25 MG TABLET PO SCH ×2 (08:40→17:00)
[2020-11-30] MEDS: amLODIPine BESYLATE 10 MG TABLET PO SCH (08:40)
--- NOTE | 2020-11-30 12:00 | NUR ---
Nursing note: Pt in his room at time of AM med pass and assessment. He is med compliant and cooperative. He denied having any pain and said he did not want the lidocaine patch to be applied today. Pt continues to be very disorganized and ask for Harjit. Pt has been withdrawn to his room for the morning. He is currently eating his lunch. Will continue to monitor.
[2020-11-30 15:27] VITALS: BP 149/85
[2020-11-30] MEDS: AMITRIPTYLINE HCL 25 MG TABLET PO SCH (19:44)
[2020-11-30] MEDS: QUEtiapine 25 MG TABLET. PO SCH (19:44)
[2020-11-30] MEDS: ATORVASTATIN CALCIUM 20 MG TABLET PO SCH (19:44)
[2020-11-30] MEDS: MELATONIN 3 MG TABLET PO SCH (19:44)
--- NOTE | 2020-11-30 21:17 | NUR ---
Nursing Note: Pt wandering in hallway at shift change. Pt calm, pleasantly confused, interactive and social with peers and staff. Pt door checking and exit seeking at times but no agitation or aggression noted thus far this shift. Pt cooperative with assessment and compliant with medications administered whole.
--- NOTE | 2020-11-30 21:36 | PDOC ---
Exam Note: Gus Note: Please also refer to the separate dictated note~for this date of service dictated separately.~Patient seen individually. Discussed the patient with Nursing staff reviewed the chart.~Reviewed interim history and current functioning. Reviewed vital signs,~Labs/ Radiology~and current medications noted below. Continue current treatment with the changes noted in the dictated addendum note Assessment: Vital Signs/I&O: Vital Signs Date Time Temp Pulse Resp B/P (MAP) Pulse Ox O2 Delivery O2 Flow Rate FiO2 11/30/20 17:00 86 149/85 11/30/20 15:27 98.5 16 98 11/30/20 05:48 Room Air I & O 11/29/20 11/29/20 11/30/20 15:00 23:00 07:00 Intake Total 480 ml 240 ml Balance 480 ml 240 ml Current Medications: Meds: Current Medications Medications (Trade) Dose Ordered Sig/Evaristo Route PRN Reason Start Time Stop Time Status Last Admin Dose Admin Acetaminophen (Tylenol) 650 mg PRN Q6HRS PRN PO MILD PAIN / TEMP > 100.3'F 11/25/20 18:00 Multi-Ingredient Ointment (Analgesic [place]) 1 addison PRN QID PRN TP MUSCLE PAIN 11/25/20 18:00 Al Hydroxide/Mg Hydroxide (Mylanta Plus Xs) 15 ml PRN AFTMEALHC PRN PO DYSPEPSIA 11/25/20 18:00 Magnesium Hydroxide (Milk Of Magnesia) 2,400 mg PRN QHS PRN PO CONSTIPATION 11/25/20 18:00 Amlodipine Besylate (Norvasc) 10 mg DAILY PO 11/26/20 09:00 11/30/20 08:40 Aspirin (Aspirin Chewable) 81 mg DAILY PO 11/26/20 09:00 11/30/20 08:39 Carvedilol (Coreg) 6.25 mg BIDWMEALS PO 11/25/20 18:30 11/30/20 17:00 Lisinopril (Prinivil) 10 mg DAILY PO 11/26/20 09:00 11/26/20 16:16 DC Quetiapine Fumarate (SEROquel) 25 mg QHS PO 11/25/20 21:00 11/30/20 19:44 Tamsulosin HCl (Flomax) 0.4 mg DAILY PO 11/26/20 09:00 11/30/20 08:39 Amoxicillin (Amoxil) 500 mg [id number] PO 11/25/20 21:00 12/02/20 14:01 11/30/20 19:44 Atorvastatin Calcium (Lipitor) 40 mg QHS PO 11/25/20 21:00 11/30/20 19:44 Folic Acid (Folic Acid) 1 mg DAILY PO 11/26/20 09:00 11/30/20 08:39 Lidocaine (Lidoderm) 1 patch DAILY TD 11/26/20 09:00 11/29/20 08:49 Multivitamins/ Calcium (Thera-M Plus) 1 tab DAILY PO 11/26/20 09:00 11/30/20 08:39 Thiamine HCl (Vitamin B-1) 100 mg BID PO 11/25/20 21:00 11/30/20 19:44 Olanzapine (ZyPREXA ZYDIS) 2.5 mg PRN Q2HR PRN PO PSYCHOSIS 11/25/20 21:15 11/28/20 19:39 Trazodone HCl (Desyrel) 50 mg PRN QHS PRN PO INSOMNIA, MAY REPEAT IN 1HR 11/25/20 21:15 11/28/20 23:57 Mirtazapine (Remeron) 7.5 mg QHS PO 11/26/20 21:00 11/28/20 12:23 DC 11/27/20 20:00 Lactobacillus Rhamnosus (Culturelle) 1 cap BID PO 11/27/20 09:00 11/30/20 19:44 Sertraline HCl (Zoloft) 25 mg DAILY PO 11/28/20 09:00 11/30/20 09:01 DC 11/30/20 08:39 Sertraline HCl (Zoloft) 50 mg DAILY PO 12/01/20 09:00 Mirtazapine (Remeron) 15 mg QHS PO 11/28/20 21:00 11/29/20 18:47 DC 11/28/20 19:38 Hydroxyzine HCl (Atarax) 25 mg PRN Q2HR PRN PO ABDOMINAL CRAMPS 11/28/20 21:45 11/28/20 21:58 Lorazepam (Ativan) 0.5 mg PRN Q4HRS PRN PO ANXIETY / AGITATION 1/4/21 21:45 11/29/20 21:45 DC Amitriptyline HCl (Elavil) 25 mg QHS PO 11/29/20 21:00 11/30/20 19:44 Melatonin (Melatonin) 3 mg QHS PO 11/29/20 21:00 11/30/20 19:44 I have reviewed the current psychotropics carefully including drug interactions. Risk benefit ratio favors no change other than as noted in my dictated progress note. Diagnosis: Problems: (1) Major neurocognitive disorder (2) Impulse control disorder, unspecified (3) Anxiety disorder, unspecified (4) Dementia, vascular, with depression (5) Dementia, vascular, with delusions (6) Dementia in Alzheimer's disease with depression (7) Dementia in Alzheimer's disease with delusions (8) Dementia of the Alzheimer's type with early onset with behavioral disturbance DONA BOTELLO MD Nov 30, 2020 21:36
[2020-12-01 06:20] VITALS: BP 112/67
--- NOTE | 2020-12-01 07:51 | PDOC ---
Exam Note: Gus Note: This note is a late entry for 11/29/2020 covers elements not covered in my initial note. Subjective: The patient was reviewed on telehealth rounds in the evening of 11/29/2020 with Radha OVIEDO. Discussed with nursing staff, reviewed the chart. The patient again has not slept previous night. This has been the second night and I mentioned that he has not slept. He has been checking the doors, actively hallucinating, paranoid, delusional, and intermittently compliant with his medications. He did receive Zyprexa Zydis and Atarax to help his agitation and psychosis. Review of Systems: No CV, , pulmonary, eye, ENT system symptoms on review. Mental Status Exam: The patient is oriented to himself. He is paranoid, suspicious, anxious, labile in his mood. Insight and judgment, recent and remote memory, attention and concentration, fund of knowledge is poor consistent with his diagnosis. No suicidal or homicidal ideation. Laboratory Data: Reviewed. Impression: Major neurocognitive disorder Alzheimer vascular with delusion, depression, behavioral disturbance. Anxiety disorder unspecified. Impulse control disorder unspecified. Plan: No change from initial note. We will go ahead and change the Remeron 15 mg h.s. to amitriptyline 25 mg h.s., melatonin 3 mg h.s. Maintain Seroquel 25 mg h.s., trazodone h.s. p.r.n. Zoloft increasing to 50 mg a day, Atarax p.r.n. Adjust further as clinically indicated. Assessment: Vital Signs/I&O: Vital Signs Date Time Temp Pulse Resp B/P (MAP) Pulse Ox O2 Delivery O2 Flow Rate FiO2 12/01/20 06:20 97.4 60 16 112/67 (82) 96 Room Air I & O 11/30/20 11/30/20 12/01/20 15:00 23:00 07:00 Intake Total 800 ml 360 ml Balance 800 ml 360 ml Current Medications: Meds: Current Medications Medications (Trade) Dose Ordered Sig/Evaristo Route PRN Reason Start Time Stop Time Status Last Admin Dose Admin Acetaminophen (Tylenol) 650 mg PRN Q6HRS PRN PO MILD PAIN / TEMP > 100.3'F 11/25/20 18:00 Multi-Ingredient Ointment (Analgesic [place]) 1 addison PRN QID PRN TP MUSCLE PAIN 11/25/20 18:00 Al Hydroxide/Mg Hydroxide (Mylanta Plus Xs) 15 ml PRN AFTMEALHC PRN PO DYSPEPSIA 11/25/20 18:00 Magnesium Hydroxide (Milk Of Magnesia) 2,400 mg PRN QHS PRN PO CONSTIPATION 11/25/20 18:00 Amlodipine Besylate (Norvasc) 10 mg DAILY PO 11/26/20 09:00 11/30/20 08:40 Aspirin (Aspirin Chewable) 81 mg DAILY PO 11/26/20 09:00 11/30/20 08:39 Carvedilol (Coreg) 6.25 mg BIDWMEALS PO 11/25/20 18:30 11/30/20 17:00 Lisinopril (Prinivil) 10 mg DAILY PO 11/26/20 09:00 11/26/20 16:16 DC Quetiapine Fumarate (SEROquel) 25 mg QHS PO 11/25/20 21:00 11/30/20 19:44 Tamsulosin HCl (Flomax) 0.4 mg DAILY PO 11/26/20 09:00 11/30/20 08:39 Amoxicillin (Amoxil) 500 mg [id number] PO 11/25/20 21:00 12/02/20 14:01 11/30/20 19:44 Atorvastatin Calcium (Lipitor) 40 mg QHS PO 11/25/20 21:00 11/30/20 19:44 Folic Acid (Folic Acid) 1 mg DAILY PO 11/26/20 09:00 11/30/20 08:39 Lidocaine (Lidoderm) 1 patch DAILY TD 11/26/20 09:00 11/29/20 08:49 Multivitamins/ Calcium (Thera-M Plus) 1 tab DAILY PO 11/26/20 09:00 11/30/20 08:39 Thiamine HCl (Vitamin B-1) 100 mg BID PO 11/25/20 21:00 11/30/20 19:44 Olanzapine (ZyPREXA ZYDIS) 2.5 mg PRN Q2HR PRN PO PSYCHOSIS 11/25/20 21:15 11/28/20 19:39 Trazodone HCl (Desyrel) 50 mg PRN QHS PRN PO INSOMNIA, MAY REPEAT IN 1HR 11/25/20 21:15 11/28/20 23:57 Mirtazapine (Remeron) 7.5 mg QHS PO 11/26/20 21:00 11/28/20 12:23 DC 11/27/20 20:00 Lactobacillus Rhamnosus (Culturelle) 1 cap BID PO 11/27/20 09:00 11/30/20 19:44 Sertraline HCl (Zoloft) 25 mg DAILY PO 11/28/20 09:00 11/30/20 09:01 DC 11/30/20 08:39 Sertraline HCl (Zoloft) 50 mg DAILY PO 12/01/20 09:00 Mirtazapine (Remeron) 15 mg QHS PO 11/28/20 21:00 11/29/20 18:47 DC 11/28/20 19:38 Hydroxyzine HCl (Atarax) 25 mg PRN Q2HR PRN PO ABDOMINAL CRAMPS 11/28/20 21:45 11/28/20 21:58 Lorazepam (Ativan) 0.5 mg PRN Q4HRS PRN PO ANXIETY / AGITATION 11/28/20 21:45 11/29/20 21:45 DC Amitriptyline HCl (Elavil) 25 mg QHS PO 11/29/20 21:00 11/30/20 19:44 Melatonin (Melatonin) 3 mg QHS PO 11/29/20 21:00 11/30/20 19:44 I have reviewed the current psychotropics carefully including drug interactions. Risk benefit ratio favors no change other than as noted in my dictated progress note. Diagnosis: Problems: (1) Major neurocognitive disorder (2) Impulse control disorder, unspecified (3) Anxiety disorder, unspecified (4) Dementia, vascular, with depression (5) Dementia, vascular, with delusions (6) Dementia in Alzheimer's disease with depression (7) Dementia in Alzheimer's disease with delusions (8) Dementia of the Alzheimer's type with early onset with behavioral disturbance DONA BOTELLO MD Dec 01, 2020 07:51
--- NOTE | 2020-12-01 08:10 | PDOC ---
Exam Note: Gus Note: This note is a late entry for 11/30/2020 covers elements not covered in my initial note. Subjective: The patient was reviewed on telehealth rounds in the evening of 11/30/2020 with Radha OVIEDO. Discussed with nursing staff, reviewed the chart. The patient slept 6-3/4 hours previous night. He has been pleasant, still exit seeking, looking for Cristo, his caregiver who has since but the patient is unaware of this. He is redirectable. Review of Systems: No CV, , pulmonary, eye, ENT system symptoms on review. Mental Status Exam: The patient is oriented to himself. He was pleasant, smiling, seems to be less anxious since he slept better previous night. I talked to him about Cristo at some length. He remembers her as his caregiver but quite disorganized, unable to remember she has since . Insight and judgment, recent and remote memory, attention and concentration, fund of knowledge is poor consistent with his diagnosis. Laboratory Data: Reviewed. Impression: Major neurocognitive disorder Alzheimer vascular with delusion, depression, behavioral disturbance. Anxiety disorder unspecified. Impulse control disorder unspecified. Plan: Continue psychotropics from initial note including amitriptyline 25 mg h.s., melatonin 3 mg h.s. Rest unchanged from initial note. Assessment: Vital Signs/I&O: Vital Signs Date Time Temp Pulse Resp B/P (MAP) Pulse Ox O2 Delivery O2 Flow Rate FiO2 12/01/20 06:20 97.4 60 16 112/67 (82) 96 Room Air I & O 11/30/20 11/30/20 12/01/20 15:00 23:00 07:00 Intake Total 800 ml 360 ml Balance 800 ml 360 ml Current Medications: Meds: Current Medications Medications (Trade) Dose Ordered Sig/Evaristo Route PRN Reason Start Time Stop Time Status Last Admin Dose Admin Acetaminophen (Tylenol) 650 mg PRN Q6HRS PRN PO MILD PAIN / TEMP > 100.3'F 11/25/20 18:00 Multi-Ingredient Ointment (Analgesic [place]) 1 addison PRN QID PRN TP MUSCLE PAIN 11/25/20 18:00 Al Hydroxide/Mg Hydroxide (Mylanta Plus Xs) 15 ml PRN AFTMEALHC PRN PO DYSPEPSIA 11/25/20 18:00 Magnesium Hydroxide (Milk Of Magnesia) 2,400 mg PRN QHS PRN PO CONSTIPATION 11/25/20 18:00 Amlodipine Besylate (Norvasc) 10 mg DAILY PO 11/26/20 09:00 11/30/20 08:40 Aspirin (Aspirin Chewable) 81 mg DAILY PO 11/26/20 09:00 11/30/20 08:39 Carvedilol (Coreg) 6.25 mg BIDWMEALS PO 11/25/20 18:30 11/30/20 17:00 Lisinopril (Prinivil) 10 mg DAILY PO 11/26/20 09:00 11/26/20 16:16 DC Quetiapine Fumarate (SEROquel) 25 mg QHS PO 11/25/20 21:00 11/30/20 19:44 Tamsulosin HCl (Flomax) 0.4 mg DAILY PO 11/26/20 09:00 11/30/20 08:39 Amoxicillin (Amoxil) 500 mg [id number] PO 11/25/20 21:00 12/02/20 14:01 11/30/20 19:44 Atorvastatin Calcium (Lipitor) 40 mg QHS PO 11/25/20 21:00 11/30/20 19:44 Folic Acid (Folic Acid) 1 mg DAILY PO 11/26/20 09:00 11/30/20 08:39 Lidocaine (Lidoderm) 1 patch DAILY TD 11/26/20 09:00 11/29/20 08:49 Multivitamins/ Calcium (Thera-M Plus) 1 tab DAILY PO 11/26/20 09:00 11/30/20 08:39 Thiamine HCl (Vitamin B-1) 100 mg BID PO 11/25/20 21:00 11/30/20 19:44 Olanzapine (ZyPREXA ZYDIS) 2.5 mg PRN Q2HR PRN PO PSYCHOSIS 11/25/20 21:15 11/28/20 19:39 Trazodone HCl (Desyrel) 50 mg PRN QHS PRN PO INSOMNIA, MAY REPEAT IN 1HR 11/25/20 21:15 11/28/20 23:57 Mirtazapine (Remeron) 7.5 mg QHS PO 11/26/20 21:00 11/28/20 12:23 DC 11/27/20 20:00 Lactobacillus Rhamnosus (Culturelle) 1 cap BID PO 11/27/20 09:00 11/30/20 19:44 Sertraline HCl (Zoloft) 25 mg DAILY PO 11/28/20 09:00 11/30/20 09:01 DC 11/30/20 08:39 Sertraline HCl (Zoloft) 50 mg DAILY PO 12/01/20 09:00 Mirtazapine (Remeron) 15 mg QHS PO 11/28/20 21:00 11/29/20 18:47 DC 11/28/20 19:38 Hydroxyzine HCl (Atarax) 25 mg PRN Q2HR PRN PO ABDOMINAL CRAMPS 11/28/20 21:45 11/28/20 21:58 Lorazepam (Ativan) 0.5 mg PRN Q4HRS PRN PO ANXIETY / AGITATION 11/28/20 21:45 11/29/20 21:45 DC Amitriptyline HCl (Elavil) 25 mg QHS PO 11/29/20 21:00 11/30/20 19:44 Melatonin (Melatonin) 3 mg QHS PO 11/29/20 21:00 11/30/20 19:44 I have reviewed the current psychotropics carefully including drug interactions. Risk benefit ratio favors no change other than as noted in my dictated progress note. Diagnosis: Problems: (1) Major neurocognitive disorder (2) Impulse control disorder, unspecified (3) Anxiety disorder, unspecified (4) Dementia, vascular, with depression (5) Dementia, vascular, with delusions (6) Dementia in Alzheimer's disease with depression (7) Dementia in Alzheimer's disease with delusions (8) Dementia of the Alzheimer's type with early onset with behavioral disturbance DONA BOTELLO MD Dec 01, 2020 08:10
[2020-12-01] MEDS: SERTRALINE 50 MG TABLET. PO SCH (08:22)
[2020-12-01] MEDS: ASPIRIN CHEWABLE 81 MG TABLET. PO SCH (08:22)
[2020-12-01] MEDS: THIAMINE 100 MG TABLET. PO SCH ×2 (08:22→19:29)
[2020-12-01] MEDS: TAMSULOSIN 0.4 MG CAP.ER.24H. PO SCH (08:22)
[2020-12-01] MEDS: LACTOBACILLUS RHAMNOSUS GG 1 CAPSULE. PO SCH ×2 (08:22→19:29)
[2020-12-01] MEDS: MULTIVITAMIN with MINERAL TABLET. PO SCH (08:22)
[2020-12-01] MEDS: amLODIPine BESYLATE 10 MG TABLET PO SCH (08:22)
[2020-12-01] MEDS: CARVEDILOL 6.25 MG TABLET PO SCH ×2 (08:23→16:57)
[2020-12-01] MEDS: AMOXICILLIN 250 MG CAPSULE PO SCH ×3 (08:23→19:30)
[2020-12-01] MEDS: FOLIC ACID 1 MG TABLET PO SCH (08:23)
[2020-12-01] MEDS: LIDOCAINE (700MG/PATCH) PATCH. TD SCH ×2 (08:24→09:00)
[2020-12-01 15:30] VITALS: BP 148/83
--- NOTE | 2020-12-01 16:41 | NUR ---
Patient sitting on edge of bed eating breakfast at time of assessment. Patient is calm and cooperative. Alert and oriented to self. Patient takes medications whole with no problems. No complaints from patient today. No further concerns at this time.
[2020-12-01] MEDS: AMITRIPTYLINE HCL 25 MG TABLET PO SCH (19:29)
[2020-12-01] MEDS: QUEtiapine 25 MG TABLET. PO SCH (19:29)
[2020-12-01] MEDS: MELATONIN 3 MG TABLET PO SCH (19:29)
[2020-12-01] MEDS: ATORVASTATIN CALCIUM 20 MG TABLET PO SCH (19:30)
[2020-12-01] MEDS: hydrOXYzine HCL 25 MG TABLET PO PRN ×2 (20:44→23:16)
[2020-12-01] MEDS: traZODone 50 MG TABLET. PO PRN ×2 (20:44→23:17)
--- NOTE | 2020-12-01 20:49 | NUR ---
Nursing Note: Pt wandering in hallway at shift change. Pt exit seeking and anxious- reporting he "needs to get out of her and head home" but has been pleasantly confused and interactive. PRN Zydis administered @1931 for anxiety and exit seeking. Pt cooperative with assessment and compliant with medications administered whole. Pt continued to wander and exit seek, wanting to find a way out of here and therefore PRN Trazodone and PRN Atarax administered @2043. Pt currently sitting quietly in the [place].
--- NOTE | 2020-12-01 20:55 | PDOC ---
Exam Note: Gus Note: Please also refer to the separate dictated note~for this date of service dictated separately.~Patient seen individually. Discussed the patient with Nursing staff reviewed the chart.~Reviewed interim history and current functioning. Reviewed vital signs,~Labs/ Radiology~and current medications noted below. Continue current treatment with the changes noted in the dictated addendum note Assessment: Vital Signs/I&O: Vital Signs Date Time Temp Pulse Resp B/P (MAP) Pulse Ox O2 Delivery O2 Flow Rate FiO2 12/01/20 16:57 91 148/83 12/01/20 15:30 97.6 17 97 12/01/20 06:20 Room Air I & O 11/30/20 11/30/20 12/01/20 15:00 23:00 07:00 Intake Total 800 ml 360 ml Balance 800 ml 360 ml Current Medications: Meds: Current Medications Medications (Trade) Dose Ordered Sig/Evaristo Route PRN Reason Start Time Stop Time Status Last Admin Dose Admin Acetaminophen (Tylenol) 650 mg PRN Q6HRS PRN PO MILD PAIN / TEMP > 100.3'F 11/25/20 18:00 Multi-Ingredient Ointment (Analgesic [place]) 1 addison PRN QID PRN TP MUSCLE PAIN 11/25/20 18:00 Al Hydroxide/Mg Hydroxide (Mylanta Plus Xs) 15 ml PRN AFTMEALHC PRN PO DYSPEPSIA 11/25/20 18:00 Magnesium Hydroxide (Milk Of Magnesia) 2,400 mg PRN QHS PRN PO CONSTIPATION 11/25/20 18:00 Amlodipine Besylate (Norvasc) 10 mg DAILY PO 11/26/20 09:00 12/01/20 08:22 Aspirin (Aspirin Chewable) 81 mg DAILY PO 11/26/20 09:00 12/01/20 08:22 Carvedilol (Coreg) 6.25 mg BIDWMEALS PO 11/25/20 18:30 12/01/20 16:57 Lisinopril (Prinivil) 10 mg DAILY PO 11/26/20 09:00 11/26/20 16:16 DC Quetiapine Fumarate (SEROquel) 25 mg QHS PO 11/25/20 21:00 12/01/20 19:29 Tamsulosin HCl (Flomax) 0.4 mg DAILY PO 11/26/20 09:00 12/01/20 08:22 Amoxicillin (Amoxil) 500 mg [id number] PO 11/25/20 21:00 12/02/20 14:01 12/01/20 19:30 Atorvastatin Calcium (Lipitor) 40 mg QHS PO 11/25/20 21:00 12/01/20 19:30 Folic Acid (Folic Acid) 1 mg DAILY PO 11/26/20 09:00 12/01/20 08:23 Lidocaine (Lidoderm) 1 patch DAILY TD 11/26/20 09:00 11/29/20 08:49 Multivitamins/ Calcium (Thera-M Plus) 1 tab DAILY PO 11/26/20 09:00 12/01/20 08:22 Thiamine HCl (Vitamin B-1) 100 mg BID PO 11/25/20 21:00 12/01/20 19:29 Olanzapine (ZyPREXA ZYDIS) 2.5 mg PRN Q2HR PRN PO PSYCHOSIS 11/25/20 21:15 12/01/20 19:32 Trazodone HCl (Desyrel) 50 mg PRN QHS PRN PO INSOMNIA, MAY REPEAT IN 1HR 11/25/20 21:15 12/01/20 20:44 Mirtazapine (Remeron) 7.5 mg QHS PO 11/26/20 21:00 11/28/20 12:23 DC 11/27/20 20:00 Lactobacillus Rhamnosus (Culturelle) 1 cap BID PO 11/27/20 09:00 12/01/20 19:29 Sertraline HCl (Zoloft) 25 mg DAILY PO 11/28/20 09:00 11/30/20 09:01 DC 11/30/20 08:39 Sertraline HCl (Zoloft) 50 mg DAILY PO 12/01/20 09:00 12/03/20 11:00 12/01/20 08:22 Mirtazapine (Remeron) 15 mg QHS PO 11/28/20 21:00 11/29/20 18:47 DC 11/28/20 19:38 Hydroxyzine HCl (Atarax) 25 mg PRN Q2HR PRN PO ABDOMINAL CRAMPS 11/28/20 21:45 12/01/20 20:44 Lorazepam (Ativan) 0.5 mg PRN Q4HRS PRN PO ANXIETY / AGITATION 11/28/20 21:45 11/29/20 21:45 DC Amitriptyline HCl (Elavil) 25 mg QHS PO 11/29/20 21:00 12/01/20 19:29 Melatonin (Melatonin) 3 mg QHS PO 11/29/20 21:00 12/01/20 19:29 Sertraline HCl (Zoloft) 75 mg DAILY PO 12/04/20 09:00 Current Medications Medications (Trade) Dose Ordered Sig/Evaristo Route PRN Reason Start Time Stop Time Status Last Admin Dose Admin Sertraline HCl (Zoloft) 50 mg DAILY PO 12/01/20 09:00 12/03/20 11:00 12/01/20 08:22 I have reviewed the current psychotropics carefully including drug interactions. Risk benefit ratio favors no change other than as noted in my dictated progress note. Diagnosis: Problems: (1) Major neurocognitive disorder (2) Impulse control disorder, unspecified (3) Anxiety disorder, unspecified (4) Dementia, vascular, with depression (5) Dementia, vascular, with delusions (6) Dementia in Alzheimer's disease with depression (7) Dementia in Alzheimer's disease with delusions (8) Dementia of the Alzheimer's type with early onset with behavioral disturbance DONA BOTELLO MD Dec 01, 2020 20:55
--- NOTE | 2020-12-01 23:38 | NUR ---
Nursing Note: Pt restless and disorganized. Pt had torn his brief apart in his bed. Pt confused, still believes he works here and that he has "stuff to do" and therefore cannot go to sleep. Staff attempts to re-direct him have thus far been unsuccessful. PRN repeat Trazodone and PRN Atarax administered @6319.
[2020-12-02] MEDS: traZODone 50 MG TABLET. PO PRN ×3 (00:36→22:32)
--- NOTE | 2020-12-02 00:45 | NUR ---
Nursing Note: Pt has continued to be restless and disorganized, confused and delusional- thinks he needs to get up because he has "things to do", believes he is working. 2nd PRN repeat Trazodone and PRN Zydis administered at this time and pt escorted to the [facility] where he is currently lying in the quiet room.
[2020-12-02 06:26] VITALS: BP 171/88
[2020-12-02] MEDS: LIDOCAINE (700MG/PATCH) PATCH. TD SCH (09:00)
[2020-12-02] MEDS: amLODIPine BESYLATE 10 MG TABLET PO SCH (09:05)
[2020-12-02] MEDS: ASPIRIN CHEWABLE 81 MG TABLET. PO SCH (09:05)
[2020-12-02] MEDS: TAMSULOSIN 0.4 MG CAP.ER.24H. PO SCH (09:05)
[2020-12-02] MEDS: CARVEDILOL 6.25 MG TABLET PO SCH ×2 (09:05→17:21)
[2020-12-02] MEDS: FOLIC ACID 1 MG TABLET PO SCH (09:06)
[2020-12-02] MEDS: AMOXICILLIN 250 MG CAPSULE PO SCH ×2 (09:06→14:15)
[2020-12-02] MEDS: LACTOBACILLUS RHAMNOSUS GG 1 CAPSULE. PO SCH ×2 (09:06→19:48)
[2020-12-02] MEDS: THIAMINE 100 MG TABLET. PO SCH ×2 (09:06→19:49)
[2020-12-02] MEDS: MULTIVITAMIN with MINERAL TABLET. PO SCH (09:06)
[2020-12-02] MEDS: SERTRALINE 50 MG TABLET. PO SCH (09:07)
[2020-12-02] MEDS: hydrOXYzine HCL 25 MG TABLET PO PRN ×2 (12:28→15:35)
--- NOTE | 2020-12-02 12:28 | NUR ---
Pt wandering continuously, exit seeking, door checking. Repeatedly hitting doorbell. Pt anxious and wanting to leave facility. He asked multiple staff members how to get out of the building. Redirection and distraction ineffective. PRN medication provided per EMR. Will continue to monitor.
[2020-12-02 15:00] VITALS: BP 103/65
--- NOTE | 2020-12-02 15:35 | NUR ---
Pt continues to wander around the unit and continues with exit seeking and door checking. He is still repeatedly hitting doorbell. Pt anxious and mildly agitated. Redirection and distraction ineffective. PRN medication provided per EMR. Will continue to monitor.
[2020-12-02] MEDS: ATORVASTATIN CALCIUM 20 MG TABLET PO SCH (19:48)
[2020-12-02] MEDS: AMITRIPTYLINE HCL 25 MG TABLET PO SCH (19:49)
[2020-12-02] MEDS: MELATONIN 3 MG TABLET PO SCH (19:49)
[2020-12-02] MEDS: QUEtiapine 25 MG TABLET. PO SCH (19:49)
[2020-12-02] MEDS: DIVALPROEX ER 500 MG TAB.ER.24H PO SCH (19:58)
--- NOTE | 2020-12-02 21:02 | PDOC ---
Exam Note: Gus Note: Please also refer to the separate dictated note~for this date of service dictated separately.~Patient seen individually. Discussed the patient with Nursing staff reviewed the chart.~Reviewed interim history and current functioning. Reviewed vital signs,~Labs/ Radiology~and current medications noted below. Continue current treatment with the changes noted in the dictated addendum note Assessment: Vital Signs/I&O: Vital Signs Date Time Temp Pulse Resp B/P (MAP) Pulse Ox O2 Delivery O2 Flow Rate FiO2 12/02/20 17:21 87 103/65 12/02/20 15:00 97.4 17 97 Room Air I & O 12/01/20 12/01/20 12/02/20 15:00 23:00 07:00 Intake Total 460 ml 480 ml Balance 460 ml 480 ml Current Medications: Meds: Current Medications Medications (Trade) Dose Ordered Sig/Evaristo Route PRN Reason Start Time Stop Time Status Last Admin Dose Admin Acetaminophen (Tylenol) 650 mg PRN Q6HRS PRN PO MILD PAIN / TEMP > 100.3'F 11/25/20 18:00 Multi-Ingredient Ointment (Analgesic [place]) 1 addison PRN QID PRN TP MUSCLE PAIN 11/25/20 18:00 Al Hydroxide/Mg Hydroxide (Mylanta Plus Xs) 15 ml PRN AFTMEALHC PRN PO DYSPEPSIA 11/25/20 18:00 Magnesium Hydroxide (Milk Of Magnesia) 2,400 mg PRN QHS PRN PO CONSTIPATION 11/25/20 18:00 Amlodipine Besylate (Norvasc) 10 mg DAILY PO 11/26/20 09:00 12/02/20 09:05 Aspirin (Aspirin Chewable) 81 mg DAILY PO 11/26/20 09:00 12/02/20 09:05 Carvedilol (Coreg) 6.25 mg BIDWMEALS PO 11/25/20 18:30 12/02/20 17:21 Lisinopril (Prinivil) 10 mg DAILY PO 11/26/20 09:00 11/26/20 16:16 DC Quetiapine Fumarate (SEROquel) 25 mg QHS PO 11/25/20 21:00 12/02/20 19:49 Tamsulosin HCl (Flomax) 0.4 mg DAILY PO 11/26/20 09:00 12/02/20 09:05 Amoxicillin (Amoxil) 500 mg [id number] PO 11/25/20 21:00 12/02/20 14:01 DC 12/02/20 14:15 Atorvastatin Calcium (Lipitor) 40 mg QHS PO 11/25/20 21:00 12/02/20 19:48 Folic Acid (Folic Acid) 1 mg DAILY PO 11/26/20 09:00 12/02/20 09:06 Lidocaine (Lidoderm) 1 patch DAILY TD 11/26/20 09:00 11/29/20 08:49 Multivitamins/ Calcium (Thera-M Plus) 1 tab DAILY PO 11/26/20 09:00 12/02/20 09:06 Thiamine HCl (Vitamin B-1) 100 mg BID PO 11/25/20 21:00 12/02/20 19:49 Olanzapine (ZyPREXA ZYDIS) 2.5 mg PRN Q2HR PRN PO PSYCHOSIS 11/25/20 21:15 12/02/20 15:35 Trazodone HCl (Desyrel) 50 mg PRN QHS PRN PO INSOMNIA, MAY REPEAT IN 1HR 11/25/20 21:15 12/02/20 20:18 Mirtazapine (Remeron) 7.5 mg QHS PO 11/26/20 21:00 11/28/20 12:23 DC 11/27/20 20:00 Lactobacillus Rhamnosus (Culturelle) 1 cap BID PO 11/27/20 09:00 12/02/20 19:48 Sertraline HCl (Zoloft) 25 mg DAILY PO 11/28/20 09:00 11/30/20 09:01 DC 11/30/20 08:39 Sertraline HCl (Zoloft) 50 mg DAILY PO 12/01/20 09:00 12/03/20 11:00 12/02/20 09:07 Mirtazapine (Remeron) 15 mg QHS PO 11/28/20 21:00 11/29/20 18:47 DC 11/28/20 19:38 Hydroxyzine HCl (Atarax) 25 mg PRN Q2HR PRN PO ABDOMINAL CRAMPS 11/28/20 21:45 12/02/20 15:35 Lorazepam (Ativan) 0.5 mg PRN Q4HRS PRN PO ANXIETY / AGITATION 11/28/20 21:45 11/29/20 21:45 DC Amitriptyline HCl (Elavil) 25 mg QHS PO 11/29/20 21:00 12/02/20 19:49 Melatonin (Melatonin) 3 mg QHS PO 11/29/20 21:00 12/02/20 19:49 Sertraline HCl (Zoloft) 75 mg DAILY PO 12/04/20 09:00 Divalproex Sodium (Depakote Er) 500 mg QHS PO 12/02/20 21:00 12/02/20 19:58 Current Medications Medications (Trade) Dose Ordered Sig/Evaristo Route PRN Reason Start Time Stop Time Status Last Admin Dose Admin Divalproex Sodium (Depakote Er) 500 mg QHS PO 12/02/20 21:00 12/02/20 19:58 I have reviewed the current psychotropics carefully including drug interactions. Risk benefit ratio favors no change other than as noted in my dictated progress note. Diagnosis: Problems: (1) Major neurocognitive disorder (2) Impulse control disorder, unspecified (3) Anxiety disorder, unspecified (4) Dementia, vascular, with depression (5) Dementia, vascular, with delusions (6) Dementia in Alzheimer's disease with depression (7) Dementia in Alzheimer's disease with delusions (8) Dementia of the Alzheimer's type with early onset with behavioral disturbance DONA BOTELLO MD Dec 02, 2020 21:02
--- NOTE | 2020-12-02 23:05 | NUR ---
Nursing Note Pt wanders the unit, confused and disoriented, looking for his keys his car the door and the elevator to exit the building. Also asking for phone numbers, how to clock in for his shift and where he is assigned for the night. Med compliant, trazodone x2 given.
[2020-12-03] MEDS: hydrOXYzine HCL 25 MG TABLET PO PRN (02:37)
[2020-12-03 06:22] VITALS: BP 135/84
--- NOTE | 2020-12-03 08:03 | PDOC ---
Exam Note: Gus Note: This note is a late entry for 12/01/2020 covers elements not covered in my initial note. Subjective: The patient was reviewed on telehealth rounds in the evening of 12/01/2020 with Addis OVIEDO. Discussed with nursing staff, reviewed the chart. The patient slept 7-1/2 hours previous night. He remains confused, anxious, restless, trying to leave the unit, packing his belongings. Review of Systems: No CV, , pulmonary, eye, ENT system symptoms on review. Mental Status Exam: The patient is oriented just to himself. Insight and judgment, recent and remote memory, attention and concentration, fund of knowledge is poor consistent with his diagnosis. Laboratory Data: Reviewed. Impression: Major neurocognitive disorder Alzheimer vascular with delusion, depression, behavioral disturbance. Anxiety disorder unspecified. Impulse control disorder unspecified. Plan: Continue psychotropics from initial note. After the patient has been on Zoloft 50 mg a day, we will increase to 75 mg a day. Rest psychotropics unchanged. Assessment: Vital Signs/I&O: Vital Signs Date Time Temp Pulse Resp B/P (MAP) Pulse Ox O2 Delivery O2 Flow Rate FiO2 12/03/20 06:22 97.6 82 16 135/84 (101) 97 12/02/20 15:00 Room Air I & O 12/02/20 12/02/20 12/03/20 15:00 23:00 07:00 Intake Total 360 ml 600 ml Balance 360 ml 600 ml Current Medications: Meds: Current Medications Medications (Trade) Dose Ordered Sig/Evaristo Route PRN Reason Start Time Stop Time Status Last Admin Dose Admin Acetaminophen (Tylenol) 650 mg PRN Q6HRS PRN PO MILD PAIN / TEMP > 100.3'F 11/25/20 18:00 Multi-Ingredient Ointment (Analgesic [place]) 1 addison PRN QID PRN TP MUSCLE PAIN 11/25/20 18:00 Al Hydroxide/Mg Hydroxide (Mylanta Plus Xs) 15 ml PRN AFTMEALHC PRN PO DYSPEPSIA 11/25/20 18:00 Magnesium Hydroxide (Milk Of Magnesia) 2,400 mg PRN QHS PRN PO CONSTIPATION 11/25/20 18:00 Amlodipine Besylate (Norvasc) 10 mg DAILY PO 11/26/20 09:00 12/02/20 09:05 Aspirin (Aspirin Chewable) 81 mg DAILY PO 11/26/20 09:00 12/02/20 09:05 Carvedilol (Coreg) 6.25 mg BIDWMEALS PO 11/25/20 18:30 12/02/20 17:21 Lisinopril (Prinivil) 10 mg DAILY PO 11/26/20 09:00 11/26/20 16:16 DC Quetiapine Fumarate (SEROquel) 25 mg QHS PO 11/25/20 21:00 12/02/20 19:49 Tamsulosin HCl (Flomax) 0.4 mg DAILY PO 11/26/20 09:00 12/02/20 09:05 Amoxicillin (Amoxil) 500 mg [id number] PO 11/25/20 21:00 12/02/20 14:01 DC 12/02/20 14:15 Atorvastatin Calcium (Lipitor) 40 mg QHS PO 11/25/20 21:00 12/02/20 19:48 Folic Acid (Folic Acid) 1 mg DAILY PO 11/26/20 09:00 12/02/20 09:06 Lidocaine (Lidoderm) 1 patch DAILY TD 11/26/20 09:00 11/29/20 08:49 Multivitamins/ Calcium (Thera-M Plus) 1 tab DAILY PO 11/26/20 09:00 12/02/20 09:06 Thiamine HCl (Vitamin B-1) 100 mg BID PO 11/25/20 21:00 12/02/20 19:49 Olanzapine (ZyPREXA ZYDIS) 2.5 mg PRN Q2HR PRN PO PSYCHOSIS 11/25/20 21:15 12/03/20 02:37 Trazodone HCl (Desyrel) 50 mg PRN QHS PRN PO INSOMNIA, MAY REPEAT IN 1HR 11/25/20 21:15 12/02/20 22:32 Mirtazapine (Remeron) 7.5 mg QHS PO 11/26/20 21:00 11/28/20 12:23 DC 11/27/20 20:00 Lactobacillus Rhamnosus (Culturelle) 1 cap BID PO 11/27/20 09:00 12/02/20 19:48 Sertraline HCl (Zoloft) 25 mg DAILY PO 11/28/20 09:00 11/30/20 09:01 DC 11/30/20 08:39 Sertraline HCl (Zoloft) 50 mg DAILY PO 12/01/20 09:00 12/03/20 11:00 12/02/20 09:07 Mirtazapine (Remeron) 15 mg QHS PO 11/28/20 21:00 11/29/20 18:47 DC 11/28/20 19:38 Hydroxyzine HCl (Atarax) 25 mg PRN Q2HR PRN PO ABDOMINAL CRAMPS 11/28/20 21:45 12/03/20 02:37 Lorazepam (Ativan) 0.5 mg PRN Q4HRS PRN PO ANXIETY / AGITATION 11/28/20 21:45 11/29/20 21:45 DC Amitriptyline HCl (Elavil) 25 mg QHS PO 11/29/20 21:00 12/02/20 19:49 Melatonin (Melatonin) 3 mg QHS PO 11/29/20 21:00 12/02/20 19:49 Sertraline HCl (Zoloft) 75 mg DAILY PO 12/04/20 09:00 Divalproex Sodium (Depakote Er) 500 mg QHS PO 12/02/20 21:00 12/02/20 19:58 Current Medications Medications (Trade) Dose Ordered Sig/Evaristo Route PRN Reason Start Time Stop Time Status Last Admin Dose Admin Divalproex Sodium (Depakote Er) 500 mg QHS PO 12/02/20 21:00 12/02/20 19:58 I have reviewed the current psychotropics carefully including drug interactions. Risk benefit ratio favors no change other than as noted in my dictated progress note. Diagnosis: Problems: (1) Major neurocognitive disorder (2) Impulse control disorder, unspecified (3) Anxiety disorder, unspecified (4) Dementia, vascular, with depression (5) Dementia, vascular, with delusions (6) Dementia in Alzheimer's disease with depression (7) Dementia in Alzheimer's disease with delusions (8) Dementia of the Alzheimer's type with early onset with behavioral disturbance DONA BOTELLO MD Dec 03, 2020 08:03
[2020-12-03] MEDS: ASPIRIN CHEWABLE 81 MG TABLET. PO SCH (08:04)
[2020-12-03] MEDS: LACTOBACILLUS RHAMNOSUS GG 1 CAPSULE. PO SCH ×2 (08:04→20:30)
[2020-12-03] MEDS: CARVEDILOL 6.25 MG TABLET PO SCH ×2 (08:04→17:24)
[2020-12-03] MEDS: LIDOCAINE (700MG/PATCH) PATCH. TD SCH ×2 (08:04→11:00)
[2020-12-03] MEDS: FOLIC ACID 1 MG TABLET PO SCH (08:05)
[2020-12-03] MEDS: THIAMINE 100 MG TABLET. PO SCH ×2 (08:05→20:30)
[2020-12-03] MEDS: MULTIVITAMIN with MINERAL TABLET. PO SCH (08:05)
[2020-12-03] MEDS: amLODIPine BESYLATE 10 MG TABLET PO SCH (08:05)
[2020-12-03] MEDS: TAMSULOSIN 0.4 MG CAP.ER.24H. PO SCH (08:05)
[2020-12-03] MEDS: SERTRALINE 50 MG TABLET. PO SCH (08:05)
--- NOTE | 2020-12-03 08:34 | PDOC ---
Exam Note: Gus Note: This note is a late entry for 12/02/2020 covers elements not covered in my initial note. Subjective: The patient was reviewed on telehealth rounds in the evening of 12/02/2020 with Cm OVIEDO. Discussed with nursing staff, reviewed the chart. The patient slept 4-1/4 hours previous night. He remains confused talking about dog food, quite disorganized, wandering, attempting to elope, and checking doors. He received Atarax and Zyprexa at 1228 and 1535 hours and then did better. He is repeatedly hitting the doorbell wanting to leave, oblivious of where he is, wandering the hallways. Review of Systems: No CV, , pulmonary, eye, ENT system symptoms on review. Mental Status Exam: The patient is oriented to himself. Insight and judgment, recent and remote memory, attention and concentration, fund of knowledge is poor consistent with his diagnosis. Laboratory Data: Reviewed. Impression: Major neurocognitive disorder Alzheimer vascular with delusion, depression, behavioral disturbance. Anxiety disorder unspecified. Impulse control disorder unspecified. Plan: The patient is quite agitated with marked mood lability. We will start Depakote ER 500 mg h.s. Check CBC, CMP, valproic acid level in 3 days. Continue rest unchanged. Assessment: Vital Signs/I&O: Vital Signs Date Time Temp Pulse Resp B/P (MAP) Pulse Ox O2 Delivery O2 Flow Rate FiO2 12/03/20 08:05 82 135/84 12/03/20 06:22 97.6 16 97 12/02/20 15:00 Room Air I & O 12/02/20 12/02/20 12/03/20 15:00 23:00 07:00 Intake Total 360 ml 600 ml Balance 360 ml 600 ml Current Medications: Meds: Current Medications Medications (Trade) Dose Ordered Sig/Evaristo Route PRN Reason Start Time Stop Time Status Last Admin Dose Admin Acetaminophen (Tylenol) 650 mg PRN Q6HRS PRN PO MILD PAIN / TEMP > 100.3'F 11/25/20 18:00 Multi-Ingredient Ointment (Analgesic [place]) 1 addison PRN QID PRN TP MUSCLE PAIN 11/25/20 18:00 Al Hydroxide/Mg Hydroxide (Mylanta Plus Xs) 15 ml PRN AFTMEALHC PRN PO DYSPEPSIA 11/25/20 18:00 Magnesium Hydroxide (Milk Of Magnesia) 2,400 mg PRN QHS PRN PO CONSTIPATION 11/25/20 18:00 Amlodipine Besylate (Norvasc) 10 mg DAILY PO 11/26/20 09:00 12/03/20 08:05 Aspirin (Aspirin Chewable) 81 mg DAILY PO 11/26/20 09:00 12/03/20 08:04 Carvedilol (Coreg) 6.25 mg BIDWMEALS PO 11/25/20 18:30 12/03/20 08:04 Lisinopril (Prinivil) 10 mg DAILY PO 11/26/20 09:00 11/26/20 16:16 DC Quetiapine Fumarate (SEROquel) 25 mg QHS PO 11/25/20 21:00 12/02/20 19:49 Tamsulosin HCl (Flomax) 0.4 mg DAILY PO 11/26/20 09:00 12/03/20 08:05 Amoxicillin (Amoxil) 500 mg [id number] PO 11/25/20 21:00 12/02/20 14:01 DC 12/02/20 14:15 Atorvastatin Calcium (Lipitor) 40 mg QHS PO 11/25/20 21:00 12/02/20 19:48 Folic Acid (Folic Acid) 1 mg DAILY PO 11/26/20 09:00 12/03/20 08:05 Lidocaine (Lidoderm) 1 patch DAILY TD 11/26/20 09:00 12/03/20 08:04 Multivitamins/ Calcium (Thera-M Plus) 1 tab DAILY PO 11/26/20 09:00 12/03/20 08:05 Thiamine HCl (Vitamin B-1) 100 mg BID PO 11/25/20 21:00 12/03/20 08:05 Olanzapine (ZyPREXA ZYDIS) 2.5 mg PRN Q2HR PRN PO PSYCHOSIS 11/25/20 21:15 12/03/20 02:37 Trazodone HCl (Desyrel) 50 mg PRN QHS PRN PO INSOMNIA, MAY REPEAT IN 1HR 11/25/20 21:15 12/02/20 22:32 Mirtazapine (Remeron) 7.5 mg QHS PO 11/26/20 21:00 11/28/20 12:23 DC 11/27/20 20:00 Lactobacillus Rhamnosus (Culturelle) 1 cap BID PO 11/27/20 09:00 12/03/20 08:04 Sertraline HCl (Zoloft) 25 mg DAILY PO 11/28/20 09:00 11/30/20 09:01 DC 11/30/20 08:39 Sertraline HCl (Zoloft) 50 mg DAILY PO 12/01/20 09:00 12/03/20 11:00 12/03/20 08:05 Mirtazapine (Remeron) 15 mg QHS PO 11/28/20 21:00 11/29/20 18:47 DC 11/28/20 19:38 Hydroxyzine HCl (Atarax) 25 mg PRN Q2HR PRN PO ABDOMINAL CRAMPS 11/28/20 21:45 12/03/20 02:37 Lorazepam (Ativan) 0.5 mg PRN Q4HRS PRN PO ANXIETY / AGITATION 11/28/20 21:45 11/29/20 21:45 DC Amitriptyline HCl (Elavil) 25 mg QHS PO 11/29/20 21:00 12/02/20 19:49 Melatonin (Melatonin) 3 mg QHS PO 11/29/20 21:00 12/02/20 19:49 Sertraline HCl (Zoloft) 75 mg DAILY PO 12/04/20 09:00 Divalproex Sodium (Depakote Er) 500 mg QHS PO 12/02/20 21:00 12/02/20 19:58 Current Medications Medications (Trade) Dose Ordered Sig/Evaristo Route PRN Reason Start Time Stop Time Status Last Admin Dose Admin Divalproex Sodium (Depakote Er) 500 mg QHS PO 12/02/20 21:00 12/02/20 19:58 I have reviewed the current psychotropics carefully including drug interactions. Risk benefit ratio favors no change other than as noted in my dictated progress note. Diagnosis: Problems: (1) Major neurocognitive disorder (2) Impulse control disorder, unspecified (3) Anxiety disorder, unspecified (4) Dementia, vascular, with depression (5) Dementia, vascular, with delusions (6) Dementia in Alzheimer's disease with depression (7) Dementia in Alzheimer's disease with delusions (8) Dementia of the Alzheimer's type with early onset with behavioral disturbance DONA BOTELLO MD Dec 03, 2020 08:34
--- NOTE | 2020-12-03 14:17 | NUR ---
Patient has been appropriate and friendly so far this shift. He denies SI/HI. His only concerns at this time is that he is unable to find his eyeglasses which are not on his bedside table. He is complaint with medications. He is absent of wandering and exit seeking behaviors thus far. During lunch he appeared social and engaging with other patients appropriately, even laughing freely at their jokes amongst one another. He reports 4/10 pain in his lower back, scheduled Lidocaine patch applied with reported effectiveness. He is orientated to self and place, however he is not orientated to situation. This nurse explained to him the purpose of his current hospitalization and he verbalized understanding. Will continue to monitor and report to next shift.
[2020-12-03 16:26] VITALS: BP 108/66
[2020-12-03 18:55] LABS: HEMATOCRIT 35.4 % (39.0-53.0); RED BLOOD COUNT 3.92 x10^6/uL (4.30-5.70); RED CELL DISTRIBUTION WIDTH 13.6 % (11.5-14.5); WHITE BLOOD COUNT 5.7 x10^3/uL (4.0-11.0)
[2020-12-03 19:15] LABS: ALBUMIN 2.6 g/dL (3.4-5.0); ALBUMIN/GLOBULIN RATIO 0.8 (1.0-1.7); CALCIUM 8.1 mg/dL (8.5-10.1); CREATININE 0.9 mg/dL (0.7-1.3); GFR 80.8; POTASSIUM 3.9 mmol/L (3.5-5.1); TOTAL BILIRUBIN 0.2 mg/dL (0.2-1.0)
[2020-12-03] MEDS: DIVALPROEX ER 500 MG TAB.ER.24H PO SCH (20:30)
[2020-12-03] MEDS: QUEtiapine 25 MG TABLET. PO SCH (20:30)
[2020-12-03] MEDS: ATORVASTATIN CALCIUM 20 MG TABLET PO SCH (20:30)
[2020-12-03] MEDS: AMITRIPTYLINE HCL 25 MG TABLET PO SCH (20:30)
[2020-12-03] MEDS: MELATONIN 3 MG TABLET PO SCH (20:30)
[2020-12-03] MEDS: traZODone 50 MG TABLET. PO PRN (20:32)
--- NOTE | 2020-12-03 21:00 | PDOC ---
Exam Note: Gus Note: Please also refer to the separate dictated note~for this date of service dictated separately.~Patient seen individually. Discussed the patient with Nursing staff reviewed the chart.~Reviewed interim history and current functioning. Reviewed vital signs,~Labs/ Radiology~and current medications noted below. Continue current treatment with the changes noted in the dictated addendum note Assessment: Vital Signs/I&O: Vital Signs Date Time Temp Pulse Resp B/P (MAP) Pulse Ox O2 Delivery O2 Flow Rate FiO2 12/03/20 17:24 65 108/66 12/03/20 16:26 98.4 18 98 12/02/20 15:00 Room Air I & O 12/02/20 12/02/20 12/03/20 15:00 23:00 07:00 Intake Total 360 ml 600 ml Balance 360 ml 600 ml Labs: Laboratory Tests Test 12/03/20 18:44 White Blood Count 5.7 x10^3/uL (4.0-11.0) Red Blood Count 3.92 x10^6/uL (4.30-5.70) L Hemoglobin 12.0 g/dL (13.0-17.5) L Hematocrit 35.4 % (39.0-53.0) L Mean Corpuscular Volume 90 fL (79-100) Mean Corpuscular Hemoglobin 31 pg (25-35) Mean Corpuscular Hemoglobin Concent 34 g/dL (31-37) Red Cell Distribution Width 13.6 % (11.5-14.5) Platelet Count 352 x10^3/uL (140-400) Sodium Level 141 mmol/L (136-145) Potassium Level 3.9 mmol/L (3.5-5.1) Chloride Level 106 mmol/L (98-107) Carbon Dioxide Level 28 mmol/L (21-32) Anion Gap 7 (6-14) Blood Urea Nitrogen 19 mg/dL (8-26) Creatinine 0.9 mg/dL (0.7-1.3) Estimated GFR (Cockcroft-Gault) 80.8 BUN/Creatinine Ratio 21 (6-20) H Glucose Level 89 mg/dL (70-99) Calcium Level 8.1 mg/dL (8.5-10.1) L Total Bilirubin 0.2 mg/dL (0.2-1.0) Aspartate Amino Transferase (AST) 18 U/L (15-37) Alanine Aminotransferase (ALT) 26 U/L (16-63) Alkaline Phosphatase 116 U/L (46-116) Total Protein 6.0 g/dL (6.4-8.2) L Albumin 2.6 g/dL (3.4-5.0) L Albumin/Globulin Ratio 0.8 (1.0-1.7) L Current Medications: Meds: Laboratory Tests Test 12/03/20 18:44 White Blood Count 5.7 x10^3/uL Red Blood Count 3.92 x10^6/uL Hemoglobin 12.0 g/dL Hematocrit 35.4 % Mean Corpuscular Volume 90 fL Mean Corpuscular Hemoglobin 31 pg Mean Corpuscular Hemoglobin Concent 34 g/dL Red Cell Distribution Width 13.6 % Platelet Count 352 x10^3/uL Sodium Level 141 mmol/L Potassium Level 3.9 mmol/L Chloride Level 106 mmol/L Carbon Dioxide Level 28 mmol/L Anion Gap 7 Blood Urea Nitrogen 19 mg/dL Creatinine 0.9 mg/dL Estimated GFR (Cockcroft-Gault) 80.8 BUN/Creatinine Ratio 21 Glucose Level 89 mg/dL Calcium Level 8.1 mg/dL Total Bilirubin 0.2 mg/dL Aspartate Amino Transf (AST/SGOT) 18 U/L Alanine Aminotransferase (ALT/SGPT) 26 U/L Alkaline Phosphatase 116 U/L Total Protein 6.0 g/dL Albumin 2.6 g/dL Albumin/Globulin Ratio 0.8 Current Medications Medications (Trade) Dose Ordered Sig/Evaristo Route PRN Reason Start Time Stop Time Status Last Admin Dose Admin Acetaminophen (Tylenol) 650 mg PRN Q6HRS PRN PO MILD PAIN / TEMP > 100.3'F 11/25/20 18:00 Multi-Ingredient Ointment (Analgesic [place]) 1 addison PRN QID PRN TP MUSCLE PAIN 11/25/20 18:00 Al Hydroxide/Mg Hydroxide (Mylanta Plus Xs) 15 ml PRN AFTMEALHC PRN PO DYSPEPSIA 11/25/20 18:00 Magnesium Hydroxide (Milk Of Magnesia) 2,400 mg PRN QHS PRN PO CONSTIPATION 11/25/20 18:00 Amlodipine Besylate (Norvasc) 10 mg DAILY PO 11/26/20 09:00 12/03/20 08:05 Aspirin (Aspirin Chewable) 81 mg DAILY PO 11/26/20 09:00 12/03/20 08:04 Carvedilol (Coreg) 6.25 mg BIDWMEALS PO 11/25/20 18:30 12/03/20 17:24 Lisinopril (Prinivil) 10 mg DAILY PO 11/26/20 09:00 11/26/20 16:16 DC Quetiapine Fumarate (SEROquel) 25 mg QHS PO 11/25/20 21:00 12/03/20 20:30 Tamsulosin HCl (Flomax) 0.4 mg DAILY PO 11/26/20 09:00 12/03/20 08:05 Amoxicillin (Amoxil) 500 mg [id number] PO 11/25/20 21:00 12/02/20 14:01 DC 12/02/20 14:15 Atorvastatin Calcium (Lipitor) 40 mg QHS PO 11/25/20 21:00 12/03/20 20:30 Folic Acid (Folic Acid) 1 mg DAILY PO 11/26/20 09:00 12/03/20 08:05 Lidocaine (Lidoderm) 1 patch DAILY TD 11/26/20 09:00 12/03/20 08:04 Multivitamins/ Calcium (Thera-M Plus) 1 tab DAILY PO 11/26/20 09:00 12/03/20 08:05 Thiamine HCl (Vitamin B-1) 100 mg BID PO 11/25/20 21:00 12/03/20 20:30 Olanzapine (ZyPREXA ZYDIS) 2.5 mg PRN Q2HR PRN PO PSYCHOSIS 11/25/20 21:15 12/03/20 02:37 Trazodone HCl (Desyrel) 50 mg PRN QHS PRN PO INSOMNIA, MAY REPEAT IN 1HR 11/25/20 21:15 12/03/20 20:32 Mirtazapine (Remeron) 7.5 mg QHS PO 11/26/20 21:00 11/28/20 12:23 DC 11/27/20 20:00 Lactobacillus Rhamnosus (Culturelle) 1 cap BID PO 11/27/20 09:00 12/03/20 20:30 Sertraline HCl (Zoloft) 25 mg DAILY PO 11/28/20 09:00 11/30/20 09:01 DC 11/30/20 08:39 Sertraline HCl (Zoloft) 50 mg DAILY PO 12/01/20 09:00 12/03/20 11:00 DC 12/03/20 08:05 Mirtazapine (Remeron) 15 mg QHS PO 11/28/20 21:00 11/29/20 18:47 DC 11/28/20 19:38 Hydroxyzine HCl (Atarax) 25 mg PRN Q2HR PRN PO ABDOMINAL CRAMPS 11/28/20 21:45 12/03/20 02:37 Lorazepam (Ativan) 0.5 mg PRN Q4HRS PRN PO ANXIETY / AGITATION 11/28/20 21:45 11/29/20 21:45 DC Amitriptyline HCl (Elavil) 25 mg QHS PO 11/29/20 21:00 12/03/20 20:30 Melatonin (Melatonin) 3 mg QHS PO 11/29/20 21:00 12/03/20 20:30 Sertraline HCl (Zoloft) 75 mg DAILY PO 12/04/20 09:00 Divalproex Sodium (Depakote Er) 500 mg QHS PO 12/02/20 21:00 12/03/20 20:30 Current Medications Medications (Trade) Dose Ordered Sig/Evaristo Route PRN Reason Start Time Stop Time Status Last Admin Dose Admin Divalproex Sodium (Depakote Er) 500 mg QHS PO 12/02/20 21:00 12/03/20 20:30 I have reviewed the current psychotropics carefully including drug interactions. Risk benefit ratio favors no change other than as noted in my dictated progress note. Diagnosis: Problems: (1) Major neurocognitive disorder (2) Impulse control disorder, unspecified (3) Anxiety disorder, unspecified (4) Dementia, vascular, with depression (5) Dementia, vascular, with delusions (6) Dementia in Alzheimer's disease with depression (7) Dementia in Alzheimer's disease with delusions (8) Dementia of the Alzheimer's type with early onset with behavioral disturbance DONA BOTELLO MD Dec 03, 2020 21:00
--- NOTE | 2020-12-03 23:54 | NUR ---
Pt was asleep in his room at shift change. Pt woke up later in the evening and was compliant with whole medications and shower. After shower, pt was restless, wandering and exit seeking. PRN Zydis administered. Pt then went back to bed where he is currently sleeping.
[2020-12-04 06:05] VITALS: BP 126/80
[2020-12-04] MEDS: LACTOBACILLUS RHAMNOSUS GG 1 CAPSULE. PO SCH ×2 (08:17→20:08)
[2020-12-04] MEDS: THIAMINE 100 MG TABLET. PO SCH ×2 (08:18→20:09)
[2020-12-04] MEDS: FOLIC ACID 1 MG TABLET PO SCH (08:18)
[2020-12-04] MEDS: CARVEDILOL 6.25 MG TABLET PO SCH ×2 (08:18→16:42)
[2020-12-04] MEDS: ASPIRIN CHEWABLE 81 MG TABLET. PO SCH (08:18)
[2020-12-04] MEDS: amLODIPine BESYLATE 10 MG TABLET PO SCH (08:18)
[2020-12-04] MEDS: MULTIVITAMIN with MINERAL TABLET. PO SCH (08:18)
[2020-12-04] MEDS: LIDOCAINE (700MG/PATCH) PATCH. TD SCH (08:19)
--- NOTE | 2020-12-04 08:19 | PDOC ---
Exam Note: Gus Note: This note is a late entry for 12/03/2020 covers elements not covered in my initial note. Subjective: The patient was reviewed on telehealth rounds in the evening of 12/03/2020 with Neris OVIEDO. Discussed with nursing staff, reviewed the chart. The patient slept 4-1/4 hours previous night. Overall he has been less anxious, restless. He takes his medications, less wandering. He cannot find his glasses, gets agitated. Review of Systems: No CV, , pulmonary, eye, ENT system symptoms on review. Mental Status Exam: The patient is oriented to himself. Insight and judgment, recent and remote memory, attention and concentration, fund of knowledge is poor consistent with his diagnosis. Laboratory Data: Reviewed. Impression: Major neurocognitive disorder Alzheimer vascular with delusion, depression, behavioral disturbance. Anxiety disorder unspecified. Impulse control disorder unspecified. Plan: No change from initial note. Depakote has been initiated. Follow labs level. Continue rest of the psychotropics. Assessment: Vital Signs/I&O: Vital Signs Date Time Temp Pulse Resp B/P (MAP) Pulse Ox O2 Delivery O2 Flow Rate FiO2 12/04/20 06:05 97.2 86 18 126/80 (95) 97 Room Air I & O 12/03/20 12/03/20 12/04/20 15:00 23:00 07:00 Intake Total 480 ml 120 ml Balance 480 ml 120 ml Labs: Laboratory Tests Test 12/03/20 18:44 White Blood Count 5.7 x10^3/uL (4.0-11.0) Red Blood Count 3.92 x10^6/uL (4.30-5.70) L Hemoglobin 12.0 g/dL (13.0-17.5) L Hematocrit 35.4 % (39.0-53.0) L Mean Corpuscular Volume 90 fL (79-100) Mean Corpuscular Hemoglobin 31 pg (25-35) Mean Corpuscular Hemoglobin Concent 34 g/dL (31-37) Red Cell Distribution Width 13.6 % (11.5-14.5) Platelet Count 352 x10^3/uL (140-400) Sodium Level 141 mmol/L (136-145) Potassium Level 3.9 mmol/L (3.5-5.1) Chloride Level 106 mmol/L (98-107) Carbon Dioxide Level 28 mmol/L (21-32) Anion Gap 7 (6-14) Blood Urea Nitrogen 19 mg/dL (8-26) Creatinine 0.9 mg/dL (0.7-1.3) Estimated GFR (Cockcroft-Gault) 80.8 BUN/Creatinine Ratio 21 (6-20) H Glucose Level 89 mg/dL (70-99) Calcium Level 8.1 mg/dL (8.5-10.1) L Total Bilirubin 0.2 mg/dL (0.2-1.0) Aspartate Amino Transferase (AST) 18 U/L (15-37) Alanine Aminotransferase (ALT) 26 U/L (16-63) Alkaline Phosphatase 116 U/L (46-116) Total Protein 6.0 g/dL (6.4-8.2) L Albumin 2.6 g/dL (3.4-5.0) L Albumin/Globulin Ratio 0.8 (1.0-1.7) L Current Medications: Meds: Laboratory Tests Test 12/03/20 18:44 White Blood Count 5.7 x10^3/uL Red Blood Count 3.92 x10^6/uL Hemoglobin 12.0 g/dL Hematocrit 35.4 % Mean Corpuscular Volume 90 fL Mean Corpuscular Hemoglobin 31 pg Mean Corpuscular Hemoglobin Concent 34 g/dL Red Cell Distribution Width 13.6 % Platelet Count 352 x10^3/uL Sodium Level 141 mmol/L Potassium Level 3.9 mmol/L Chloride Level 106 mmol/L Carbon Dioxide Level 28 mmol/L Anion Gap 7 Blood Urea Nitrogen 19 mg/dL Creatinine 0.9 mg/dL Estimated GFR (Cockcroft-Gault) 80.8 BUN/Creatinine Ratio 21 Glucose Level 89 mg/dL Calcium Level 8.1 mg/dL Total Bilirubin 0.2 mg/dL Aspartate Amino Transf (AST/SGOT) 18 U/L Alanine Aminotransferase (ALT/SGPT) 26 U/L Alkaline Phosphatase 116 U/L Total Protein 6.0 g/dL Albumin 2.6 g/dL Albumin/Globulin Ratio 0.8 Current Medications Medications (Trade) Dose Ordered Sig/Evaristo Route PRN Reason Start Time Stop Time Status Last Admin Dose Admin Acetaminophen (Tylenol) 650 mg PRN Q6HRS PRN PO MILD PAIN / TEMP > 100.3'F 1/1/21 18:00 Multi-Ingredient Ointment (Analgesic [place]) 1 addison PRN QID PRN TP MUSCLE PAIN 11/25/20 18:00 Al Hydroxide/Mg Hydroxide (Mylanta Plus Xs) 15 ml PRN AFTMEALHC PRN PO DYSPEPSIA 11/25/20 18:00 Magnesium Hydroxide (Milk Of Magnesia) 2,400 mg PRN QHS PRN PO CONSTIPATION 11/25/20 18:00 Amlodipine Besylate (Norvasc) 10 mg DAILY PO 11/26/20 09:00 12/03/20 08:05 Aspirin (Aspirin Chewable) 81 mg DAILY PO 11/26/20 09:00 12/03/20 08:04 Carvedilol (Coreg) 6.25 mg BIDWMEALS PO 11/25/20 18:30 12/03/20 17:24 Lisinopril (Prinivil) 10 mg DAILY PO 11/26/20 09:00 11/26/20 16:16 DC Quetiapine Fumarate (SEROquel) 25 mg QHS PO 11/25/20 21:00 12/03/20 20:30 Tamsulosin HCl (Flomax) 0.4 mg DAILY PO 11/26/20 09:00 12/03/20 08:05 Amoxicillin (Amoxil) 500 mg [id number] PO 11/25/20 21:00 12/02/20 14:01 DC 12/02/20 14:15 Atorvastatin Calcium (Lipitor) 40 mg QHS PO 11/25/20 21:00 12/03/20 20:30 Folic Acid (Folic Acid) 1 mg DAILY PO 11/26/20 09:00 12/03/20 08:05 Lidocaine (Lidoderm) 1 patch DAILY TD 11/26/20 09:00 12/03/20 08:04 Multivitamins/ Calcium (Thera-M Plus) 1 tab DAILY PO 11/26/20 09:00 12/03/20 08:05 Thiamine HCl (Vitamin B-1) 100 mg BID PO 11/25/20 21:00 12/03/20 20:30 Olanzapine (ZyPREXA ZYDIS) 2.5 mg PRN Q2HR PRN PO PSYCHOSIS 11/25/20 21:15 12/03/20 21:48 Trazodone HCl (Desyrel) 50 mg PRN QHS PRN PO INSOMNIA, MAY REPEAT IN 1HR 11/25/20 21:15 12/03/20 20:32 Mirtazapine (Remeron) 7.5 mg QHS PO 11/26/20 21:00 11/28/20 12:23 DC 11/27/20 20:00 Lactobacillus Rhamnosus (Culturelle) 1 cap BID PO 11/27/20 09:00 12/03/20 20:30 Sertraline HCl (Zoloft) 25 mg DAILY PO 11/28/20 09:00 11/30/20 09:01 DC 11/30/20 08:39 Sertraline HCl (Zoloft) 50 mg DAILY PO 12/01/20 09:00 12/03/20 11:00 DC 12/03/20 08:05 Mirtazapine (Remeron) 15 mg QHS PO 11/28/20 21:00 11/29/20 18:47 DC 11/28/20 19:38 Hydroxyzine HCl (Atarax) 25 mg PRN Q2HR PRN PO ABDOMINAL CRAMPS 11/28/20 21:45 12/03/20 02:37 Lorazepam (Ativan) 0.5 mg PRN Q4HRS PRN PO ANXIETY / AGITATION 11/28/20 21:45 11/29/20 21:45 DC Amitriptyline HCl (Elavil) 25 mg QHS PO 11/29/20 21:00 12/03/20 20:30 Melatonin (Melatonin) 3 mg QHS PO 11/29/20 21:00 12/03/20 20:30 Sertraline HCl (Zoloft) 75 mg DAILY PO 12/04/20 09:00 Divalproex Sodium (Depakote Er) 500 mg QHS PO 12/02/20 21:00 12/03/20 20:30 I have reviewed the current psychotropics carefully including drug interactions. Risk benefit ratio favors no change other than as noted in my dictated progress note. Diagnosis: Problems: (1) Major neurocognitive disorder (2) Impulse control disorder, unspecified (3) Anxiety disorder, unspecified (4) Dementia, vascular, with depression (5) Dementia, vascular, with delusions (6) Dementia in Alzheimer's disease with depression (7) Dementia in Alzheimer's disease with delusions (8) Dementia of the Alzheimer's type with early onset with behavioral disturbance DONA BOTELLO MD Dec 04, 2020 08:19
[2020-12-04] MEDS: TAMSULOSIN 0.4 MG CAP.ER.24H. PO SCH (08:20)
[2020-12-04] MEDS: SERTRALINE 25 MG TABLET. PO SCH (08:21)
--- NOTE | 2020-12-04 13:21 | NUR ---
Patient has been appropriate and friendly so far this shift. He denies SI/HI. He is absent of wandering and exit seeking behaviors thus far. He is orientated to self and place, with vague awareness of situation. He is complaint with medications and directions/requests from staff. No c/o pain/SOB/cough. Will continue to monitor and report to next shift.
[2020-12-04 16:00] VITALS: BP 121/71
[2020-12-04] MEDS: MELATONIN 3 MG TABLET PO SCH (20:07)
[2020-12-04] MEDS: DIVALPROEX ER 500 MG TAB.ER.24H PO SCH (20:08)
[2020-12-04] MEDS: AMITRIPTYLINE HCL 25 MG TABLET PO SCH (20:08)
[2020-12-04] MEDS: ATORVASTATIN CALCIUM 20 MG TABLET PO SCH (20:08)
[2020-12-04] MEDS: QUEtiapine 25 MG TABLET. PO SCH (20:08)
[2020-12-04] MEDS: traZODone 50 MG TABLET. PO PRN ×2 (20:09→21:39)
--- NOTE | 2020-12-04 20:58 | PDOC ---
Exam Note: Gus Note: Please also refer to the separate dictated note~for this date of service dictated separately.~Patient seen individually. Discussed the patient with Nursing staff reviewed the chart.~Reviewed interim history and current functioning. Reviewed vital signs,~Labs/ Radiology~and current medications noted below. Continue current treatment with the changes noted in the dictated addendum note Assessment: Vital Signs/I&O: Vital Signs Date Time Temp Pulse Resp B/P (MAP) Pulse Ox O2 Delivery O2 Flow Rate FiO2 12/04/20 16:42 65 121/71 12/04/20 16:00 97.1 16 97 12/04/20 06:05 Room Air I & O 12/03/20 12/03/20 12/04/20 15:00 23:00 07:00 Intake Total 480 ml 120 ml Balance 480 ml 120 ml Current Medications: Meds: Current Medications Medications (Trade) Dose Ordered Sig/Evaristo Route PRN Reason Start Time Stop Time Status Last Admin Dose Admin Acetaminophen (Tylenol) 650 mg PRN Q6HRS PRN PO MILD PAIN / TEMP > 100.3'F 11/25/20 18:00 Multi-Ingredient Ointment (Analgesic [place]) 1 addison PRN QID PRN TP MUSCLE PAIN 11/25/20 18:00 Al Hydroxide/Mg Hydroxide (Mylanta Plus Xs) 15 ml PRN AFTMEALHC PRN PO DYSPEPSIA 11/25/20 18:00 Magnesium Hydroxide (Milk Of Magnesia) 2,400 mg PRN QHS PRN PO CONSTIPATION 11/25/20 18:00 Amlodipine Besylate (Norvasc) 10 mg DAILY PO 11/26/20 09:00 12/04/20 08:18 Aspirin (Aspirin Chewable) 81 mg DAILY PO 11/26/20 09:00 12/04/20 08:18 Carvedilol (Coreg) 6.25 mg BIDWMEALS PO 11/25/20 18:30 12/04/20 16:42 Lisinopril (Prinivil) 10 mg DAILY PO 11/26/20 09:00 11/26/20 16:16 DC Quetiapine Fumarate (SEROquel) 25 mg QHS PO 11/25/20 21:00 12/04/20 20:08 Tamsulosin HCl (Flomax) 0.4 mg DAILY PO 11/26/20 09:00 12/04/20 08:20 Amoxicillin (Amoxil) 500 mg [id number] PO 11/25/20 21:00 12/02/20 14:01 DC 12/02/20 14:15 Atorvastatin Calcium (Lipitor) 40 mg QHS PO 11/25/20 21:00 12/04/20 20:08 Folic Acid (Folic Acid) 1 mg DAILY PO 11/26/20 09:00 12/04/20 08:18 Lidocaine (Lidoderm) 1 patch DAILY TD 11/26/20 09:00 12/04/20 08:19 Multivitamins/ Calcium (Thera-M Plus) 1 tab DAILY PO 11/26/20 09:00 12/04/20 08:18 Thiamine HCl (Vitamin B-1) 100 mg BID PO 11/25/20 21:00 12/04/20 20:09 Olanzapine (ZyPREXA ZYDIS) 2.5 mg PRN Q2HR PRN PO PSYCHOSIS 11/25/20 21:15 12/03/20 21:48 Trazodone HCl (Desyrel) 50 mg PRN QHS PRN PO INSOMNIA, MAY REPEAT IN 1HR 11/25/20 21:15 12/04/20 20:09 Mirtazapine (Remeron) 7.5 mg QHS PO 11/26/20 21:00 11/28/20 12:23 DC 11/27/20 20:00 Lactobacillus Rhamnosus (Culturelle) 1 cap BID PO 11/27/20 09:00 12/04/20 20:08 Sertraline HCl (Zoloft) 25 mg DAILY PO 11/28/20 09:00 11/30/20 09:01 DC 11/30/20 08:39 Sertraline HCl (Zoloft) 50 mg DAILY PO 12/01/20 09:00 12/03/20 11:00 DC 12/03/20 08:05 Mirtazapine (Remeron) 15 mg QHS PO 11/28/20 21:00 11/29/20 18:47 DC 11/28/20 19:38 Hydroxyzine HCl (Atarax) 25 mg PRN Q2HR PRN PO ABDOMINAL CRAMPS 11/28/20 21:45 12/03/20 02:37 Lorazepam (Ativan) 0.5 mg PRN Q4HRS PRN PO ANXIETY / AGITATION 11/28/20 21:45 11/29/20 21:45 DC Amitriptyline HCl (Elavil) 25 mg QHS PO 11/29/20 21:00 12/04/20 20:08 Melatonin (Melatonin) 3 mg QHS PO 11/29/20 21:00 12/04/20 20:07 Sertraline HCl (Zoloft) 75 mg DAILY PO 12/04/20 09:00 12/04/20 08:21 Divalproex Sodium (Depakote Er) 500 mg QHS PO 12/02/20 21:00 12/04/20 20:08 Current Medications Medications (Trade) Dose Ordered Sig/Evaristo Route PRN Reason Start Time Stop Time Status Last Admin Dose Admin Sertraline HCl (Zoloft) 75 mg DAILY PO 12/04/20 09:00 12/04/20 08:21 I have reviewed the current psychotropics carefully including drug interactions. Risk benefit ratio favors no change other than as noted in my dictated progress note. Diagnosis: Problems: (1) Major neurocognitive disorder (2) Impulse control disorder, unspecified (3) Anxiety disorder, unspecified (4) Dementia, vascular, with depression (5) Dementia, vascular, with delusions (6) Dementia in Alzheimer's disease with depression (7) Dementia in Alzheimer's disease with delusions (8) Dementia of the Alzheimer's type with early onset with behavioral disturbance DONA BOTELLO MD Dec 04, 2020 20:58
--- NOTE | 2020-12-04 21:43 | NUR ---
Pt has been pleasantly confused this evening. Continues to wander around unit and ask when he can leave. Compliant with whole medications.
[2020-12-05 05:46] VITALS: BP 143/78
[2020-12-05 06:52] LABS: BASO % 0 % (0-3); EOS # 0.1 x10^3/uL (0.0-0.7); EOS % 2 % (0-3); HEMATOCRIT 40.2 % (39.0-53.0); HEMOGLOBIN 13.8 g/dL (13.0-17.5); LYMPH # 1.6 x10^3/uL (1.0-4.8); LYMPH % 26 % (24-48); MEAN CORPUSCULAR HEMOGLOBIN 31 pg (25-35); MEAN CORPUSCULAR HGB CONC 34 g/dL (31-37); MEAN CORPUSCULAR VOLUME 89 fL (79-100); MONO # 0.6 x10^3/uL (0.0-1.1); MONO % 10 % (0-9); NEUT # 3.8 x10^3uL (1.8-7.7); NEUT % 62 % (31-73); PLATELET COUNT 373 x10^3/uL (140-400); RED BLOOD COUNT 4.49 x10^6/uL (4.30-5.70); WHITE BLOOD COUNT 6.1 x10^3/uL (4.0-11.0)
[2020-12-05 07:07] LABS: ALBUMIN 3.1 g/dL (3.4-5.0); ALBUMIN/GLOBULIN RATIO 0.8 (1.0-1.7); ALK PHOS 130 U/L (46-116); ALT (SGPT) 28 U/L (16-63); ANION GAP 8 (6-14); AST (SGOT) 19 U/L (15-37); BLOOD UREA NITROGEN 12 mg/dL (8-26); BUN/CREATININE RATIO 12 (6-20); CALCIUM 9.1 mg/dL (8.5-10.1); CARBON DIOXIDE 30 mmol/L (21-32); CHLORIDE 105 mmol/L (98-107); GFR 71.5; GLUCOSE 84 mg/dL (70-99); POTASSIUM 3.8 mmol/L (3.5-5.1); SODIUM 143 mmol/L (136-145); TOTAL BILIRUBIN 0.3 mg/dL (0.2-1.0); TOTAL PROTEIN 7.2 g/dL (6.4-8.2)
[2020-12-05 07:09] LABS: VAL ACID 32 mcg/mL (50-100)
--- NOTE | 2020-12-05 07:41 | PDOC ---
Exam Note: Gus Note: This note is a late entry for 12/04/2020 covers elements not covered in my initial note. Subjective: The patient was reviewed on telehealth rounds in the evening of 12/04/2020 with Neris OVIEDO. Discussed with nursing staff, reviewed the chart. The patient slept 7-1/4 hours previous night. He has been wandering less. Amoxil has been discontinued. Labs to checked on 12/05. He is less obsessive, less trying to leave the unit. Review of Systems: No CV, , pulmonary, eye, ENT system symptoms on review. Mental Status Exam: The patient is oriented to himself. Insight and judgment, recent and remote memory, attention and concentration, fund of knowledge is poor consistent with his diagnosis. Laboratory Data: Reviewed. Impression: Major neurocognitive disorder Alzheimer vascular with delusion, depression, behavioral disturbance. Anxiety disorder unspecified. Impulse control disorder unspecified. Plan: No change from initial note. Assessment: Vital Signs/I&O: Vital Signs Date Time Temp Pulse Resp B/P (MAP) Pulse Ox O2 Delivery O2 Flow Rate FiO2 12/05/20 05:46 97.6 66 18 143/78 (99) 98 12/04/20 06:05 Room Air I & O 12/04/20 12/04/20 12/05/20 15:00 23:00 07:00 Intake Total 480 ml 320 ml Balance 480 ml 320 ml Labs: Laboratory Tests Test 12/05/20 06:34 White Blood Count 6.1 x10^3/uL (4.0-11.0) Red Blood Count 4.49 x10^6/uL (4.30-5.70) Hemoglobin 13.8 g/dL (13.0-17.5) Hematocrit 40.2 % (39.0-53.0) Mean Corpuscular Volume 89 fL (79-100) Mean Corpuscular Hemoglobin 31 pg (25-35) Mean Corpuscular Hemoglobin Concent 34 g/dL (31-37) Red Cell Distribution Width 14.0 % (11.5-14.5) Platelet Count 373 x10^3/uL (140-400) Neutrophils (%) (Auto) 62 % (31-73) Lymphocytes (%) (Auto) 26 % (24-48) Monocytes (%) (Auto) 10 % (0-9) H Eosinophils (%) (Auto) 2 % (0-3) Basophils (%) (Auto) 0 % (0-3) Neutrophils # (Auto) 3.8 x10^3uL (1.8-7.7) Lymphocytes # (Auto) 1.6 x10^3/uL (1.0-4.8) Monocytes # (Auto) 0.6 x10^3/uL (0.0-1.1) Eosinophils # (Auto) 0.1 x10^3/uL (0.0-0.7) Basophils # (Auto) 0.0 x10^3/uL (0.0-0.2) Sodium Level 143 mmol/L (136-145) Potassium Level 3.8 mmol/L (3.5-5.1) Chloride Level 105 mmol/L (98-107) Carbon Dioxide Level 30 mmol/L (21-32) Anion Gap 8 (6-14) Blood Urea Nitrogen 12 mg/dL (8-26) Creatinine 1.0 mg/dL (0.7-1.3) Estimated GFR (Cockcroft-Gault) 71.5 BUN/Creatinine Ratio 12 (6-20) Glucose Level 84 mg/dL (70-99) Calcium Level 9.1 mg/dL (8.5-10.1) Total Bilirubin 0.3 mg/dL (0.2-1.0) Aspartate Amino Transferase (AST) 19 U/L (15-37) Alanine Aminotransferase (ALT) 28 U/L (16-63) Alkaline Phosphatase 130 U/L (46-116) H Ammonia < 10 mcmol/L (11-34) L Total Protein 7.2 g/dL (6.4-8.2) Albumin 3.1 g/dL (3.4-5.0) L Albumin/Globulin Ratio 0.8 (1.0-1.7) L Valproic Acid Level 32 mcg/mL (50-100) L Valproic Acid Last Dose Date 12/04/20 Valproic Acid Last Dose Time 2100 Current Medications: Meds: Laboratory Tests Test 12/05/20 06:34 White Blood Count 6.1 x10^3/uL Red Blood Count 4.49 x10^6/uL Hemoglobin 13.8 g/dL Hematocrit 40.2 % Mean Corpuscular Volume 89 fL Mean Corpuscular Hemoglobin 31 pg Mean Corpuscular Hemoglobin Concent 34 g/dL Red Cell Distribution Width 14.0 % Platelet Count 373 x10^3/uL Neutrophils (%) (Auto) 62 % Lymphocytes (%) (Auto) 26 % Monocytes (%) (Auto) 10 % Eosinophils (%) (Auto) 2 % Basophils (%) (Auto) 0 % Neutrophils # (Auto) 3.8 x10^3uL Lymphocytes # (Auto) 1.6 x10^3/uL Monocytes # (Auto) 0.6 x10^3/uL Eosinophils # (Auto) 0.1 x10^3/uL Basophils # (Auto) 0.0 x10^3/uL Sodium Level 143 mmol/L Potassium Level 3.8 mmol/L Chloride Level 105 mmol/L Carbon Dioxide Level 30 mmol/L Anion Gap 8 Blood Urea Nitrogen 12 mg/dL Creatinine 1.0 mg/dL Estimated GFR (Cockcroft-Gault) 71.5 BUN/Creatinine Ratio 12 Glucose Level 84 mg/dL Calcium Level 9.1 mg/dL Total Bilirubin 0.3 mg/dL Aspartate Amino Transf (AST/SGOT) 19 U/L Alanine Aminotransferase (ALT/SGPT) 28 U/L Alkaline Phosphatase 130 U/L Ammonia < 10 mcmol/L Total Protein 7.2 g/dL Albumin 3.1 g/dL Albumin/Globulin Ratio 0.8 Valproic Acid (Depakene) Level 32 mcg/mL Valproic Acid Last Dose Date 12/04/20 Valproic Acid Last Dose Time 2100 Current Medications Medications (Trade) Dose Ordered Sig/Evaristo Route PRN Reason Start Time Stop Time Status Last Admin Dose Admin Acetaminophen (Tylenol) 650 mg PRN Q6HRS PRN PO MILD PAIN / TEMP > 100.3'F 11/25/20 18:00 Multi-Ingredient Ointment (Analgesic [place]) 1 addison PRN QID PRN TP MUSCLE PAIN 11/25/20 18:00 Al Hydroxide/Mg Hydroxide (Mylanta Plus Xs) 15 ml PRN AFTMEALHC PRN PO DYSPEPSIA 11/25/20 18:00 Magnesium Hydroxide (Milk Of Magnesia) 2,400 mg PRN QHS PRN PO CONSTIPATION 11/25/20 18:00 Amlodipine Besylate (Norvasc) 10 mg DAILY PO 11/26/20 09:00 12/04/20 08:18 Aspirin (Aspirin Chewable) 81 mg DAILY PO 11/26/20 09:00 12/04/20 08:18 Carvedilol (Coreg) 6.25 mg BIDWMEALS PO 11/25/20 18:30 12/04/20 16:42 Lisinopril (Prinivil) 10 mg DAILY PO 11/26/20 09:00 11/26/20 16:16 DC Quetiapine Fumarate (SEROquel) 25 mg QHS PO 11/25/20 21:00 12/04/20 20:08 Tamsulosin HCl (Flomax) 0.4 mg DAILY PO 11/26/20 09:00 12/04/20 08:20 Amoxicillin (Amoxil) 500 mg [id number] PO 11/25/20 21:00 12/02/20 14:01 DC 12/02/20 14:15 Atorvastatin Calcium (Lipitor) 40 mg QHS PO 11/25/20 21:00 12/04/20 20:08 Folic Acid (Folic Acid) 1 mg DAILY PO 11/26/20 09:00 12/04/20 08:18 Lidocaine (Lidoderm) 1 patch DAILY TD 11/26/20 09:00 12/04/20 08:19 Multivitamins/ Calcium (Thera-M Plus) 1 tab DAILY PO 11/26/20 09:00 12/04/20 08:18 Thiamine HCl (Vitamin B-1) 100 mg BID PO 11/25/20 21:00 12/04/20 20:09 Olanzapine (ZyPREXA ZYDIS) 2.5 mg PRN Q2HR PRN PO PSYCHOSIS 11/25/20 21:15 12/05/20 07:37 Trazodone HCl (Desyrel) 50 mg PRN QHS PRN PO INSOMNIA, MAY REPEAT IN 1HR 11/25/20 21:15 12/04/20 21:39 Mirtazapine (Remeron) 7.5 mg QHS PO 11/26/20 21:00 11/28/20 12:23 DC 11/27/20 20:00 Lactobacillus Rhamnosus (Culturelle) 1 cap BID PO 11/27/20 09:00 12/04/20 20:08 Sertraline HCl (Zoloft) 25 mg DAILY PO 11/28/20 09:00 11/30/20 09:01 DC 11/30/20 08:39 Sertraline HCl (Zoloft) 50 mg DAILY PO 12/01/20 09:00 12/03/20 11:00 DC 12/03/20 08:05 Mirtazapine (Remeron) 15 mg QHS PO 11/28/20 21:00 11/29/20 18:47 DC 11/28/20 19:38 Hydroxyzine HCl (Atarax) 25 mg PRN Q2HR PRN PO ABDOMINAL CRAMPS 11/28/20 21:45 12/03/20 02:37 Lorazepam (Ativan) 0.5 mg PRN Q4HRS PRN PO ANXIETY / AGITATION 11/28/20 21:45 11/29/20 21:45 DC Amitriptyline HCl (Elavil) 25 mg QHS PO 11/29/20 21:00 12/04/20 20:08 Melatonin (Melatonin) 3 mg QHS PO 11/29/20 21:00 12/04/20 20:07 Sertraline HCl (Zoloft) 75 mg DAILY PO 12/04/20 09:00 12/04/20 08:21 Divalproex Sodium (Depakote Er) 500 mg QHS PO 12/02/20 21:00 12/04/20 20:08 Current Medications Medications (Trade) Dose Ordered Sig/Evaristo Route PRN Reason Start Time Stop Time Status Last Admin Dose Admin Sertraline HCl (Zoloft) 75 mg DAILY PO 12/04/20 09:00 12/04/20 08:21 I have reviewed the current psychotropics carefully including drug interactions. Risk benefit ratio favors no change other than as noted in my dictated progress note. Diagnosis: Problems: (1) Major neurocognitive disorder (2) Impulse control disorder, unspecified (3) Anxiety disorder, unspecified (4) Dementia, vascular, with depression (5) Dementia, vascular, with delusions (6) Dementia in Alzheimer's disease with depression (7) Dementia in Alzheimer's disease with delusions (8) Dementia of the Alzheimer's type with early onset with behavioral disturbance DONA BOTELLO MD Dec 05, 2020 07:41
--- NOTE | 2020-12-05 07:50 | NUR ---
Pt is wandering the unit stating he is came to visit his sister and now he cannot find her. Pt states he is discharged. Nurse was able to redirect X 1 but pt then continued to wander and exit seek PRN nitaypgertrudisa keturah given.
[2020-12-05] MEDS: CARVEDILOL 6.25 MG TABLET PO SCH ×2 (08:09→17:31)
[2020-12-05] MEDS: ASPIRIN CHEWABLE 81 MG TABLET. PO SCH (08:10)
[2020-12-05] MEDS: FOLIC ACID 1 MG TABLET PO SCH (08:10)
[2020-12-05] MEDS: LACTOBACILLUS RHAMNOSUS GG 1 CAPSULE. PO SCH ×2 (08:10→20:44)
[2020-12-05] MEDS: THIAMINE 100 MG TABLET. PO SCH ×2 (08:10→20:43)
[2020-12-05] MEDS: TAMSULOSIN 0.4 MG CAP.ER.24H. PO SCH (08:10)
[2020-12-05] MEDS: MULTIVITAMIN with MINERAL TABLET. PO SCH (08:10)
[2020-12-05] MEDS: amLODIPine BESYLATE 10 MG TABLET PO SCH (08:10)
[2020-12-05] MEDS: SERTRALINE 25 MG TABLET. PO SCH (08:11)
[2020-12-05] MEDS: LIDOCAINE (700MG/PATCH) PATCH. TD SCH (08:11)
--- NOTE | 2020-12-05 10:59 | NUR ---
Pt is calm, cooperative, compliant and confused. Pt is not agitated or aggressive. No hallucination. He is compliant with his medications and assessment.
--- NOTE | 2020-12-05 12:27 | NUR ---
WEEKLY ACTIVITY THERAPY NOTE Date of Admission: 11/25/2020 Date of AT Assessment: 11/28/2020 Precipitating behaviors that initiated intake and admission: Patient was reported to be confused, agitated, delusional, hallucinating, removing IVs, and not cooperating with cares at [facility]. Goal aimed: to increase engagement and socialization Initial Goal: Pt. will participate in at least one Activity Therapy group per day. Weekly progress towards goal: did not achieve, no group on Saturday Group participation level: 4 full, 2 mod, 1 min Weekly highlights: foot soak and facial on Behaviors observed: thinks he's here to work at times, focuses well in groups when he is there, social and generally in a good mood, needs some assistance in groups but responds well, follows exercises, able to recall correct trivia questions Plan: no change to goal Beneficial adaptations: encouragement, getting Pt to group (he will engage well when he gets there)
[2020-12-05 15:57] VITALS: BP 146/78
--- NOTE | 2020-12-05 16:46 | TX PLAN ---
Interdisciplinary Tx Plan Admission Information Nov 25, 2020 at 15:25 Legal Status (on Admission): Voluntary, Court Appointed Guardian, Court Appointed Conservat DPOA/Guardian Name: Maxwell Martinez- guardian Contact Verified Code Status: Full Code Allergies: Coded Allergies: No Known Drug Allergies (Unverified , 11/25/20) Estimated Length of Stay: 14 Diagnoses Primary Diagnosis: Major neurocognitive d/o, vascular, alzheimers with delusions, depresion, BD; Anxiety d/o unspecified; impulse control d/o Reasons for Admission: Aggressive, Delusions, Agitated, Alcohol Abuse, Sig. Change Sleep, Anxiety/Panic, Hallucinations, Combative, Confusion/Disoriented, Poor impulse control Problem in Patient's Words: Per Scottie, " Love and caring about her and my family." Per guardian, unsafe to live at home alone with level of confusion and memory impairment. Additional Admission Comments: Per intake record, hallucinating, delusional, aggressive during ro[facility] m care, confused, restless, nonsensical speech, anxious, insomnia, poor safety, pulled out IV, uncooperative, agitated, and yelling out. Problems Active Problems: Confused Delsuional Hallucinating Wandering, intrusive, restless Poor sleep Inactive Problems: Adequate meal intake Compliant with meds Pt Strengths/Limitations Ability for [place]: Poor Cognitive Functioning/Ability: Poor Communication Skills/Ability: Fair Financial Resources: Fair Insight/Judgement: Poor Intellectual Ability: Fair Physical Health: Fair Social Skills: Fair Stability in Family: Poor Verbal Skills: Fair Discharge Criteria Discharge Criteria: Adequate arrangements @DC, Improved behavior, Improved mood/thought Preliminary Discharge Plan Preliminary DC Plan: Placement Needed Special Precautions Special Precautions: Agitation/Assault Fall Risk: High Initial D/C Plan Scottie will need placement. [facility] is in the process of determining if a medicaid applincation will need to be filed to pay for retirement care. Identified Discharge Needs: Scottie will need placement due to memory impairment. Currently Utilized Resources Currently Utilized Resources/P: PCP Referrals Community Resources: Placement referral PCP Psychiatry if available Identified Problems/Hx/Goals Objectives/Short-Term Goals Short Term Goals: Control abnormal behavior, Dec. Aggression, Dec. Anxiety/Panic, Dec. Hallucination/Delus, Dec. Outbursts, Medication Stabilization, Monitor Med Effects Short Term Goals in Patient's: Melvin Rubin, "I hope to conquer even better and us get along." Interventions/Frequency Staff Interventions/Frequency&: Nursing to provide routine safety checks, medication administration, and adl support. Psychiatry thre times weekly. SW visits twice weekly. Recreational and SW groups as Scottie will participate. 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 Social: Scottie enjoys basketball, swimming, and country music. Education: Scottie reported graduating high school. Community Follow-up PCP Psychiatry if available Placement referral Community Provider/Family Inpu: Treatment team meeting was held on 11/28/20. entry level marketing assistant of treatment plan was enterred on 11/29/20. felix Arreola, declined to be involed in team meetings but does want to know any recommendations concerning Scottie. Treatment Plan Explained Patient/Auto Wrecker had this treatment plan explained to him/her as indicated by the signature below and has been given the opportunity to ask questions and make suggestions: Date: Patient/Auto Wrecker Signature: Status Update Update Pt is eating roughly 75% of meals and sleeping on average 6 hours per night. Pt does well until the evening hours and tends to exhibit more behaviors. Pt does do some exit seeking (e.g. door checking, looking for his truck) but is redirectable to doing other things. Pt is attending groups and reports that once pt can focus, he is an active member in group. Pt will have his Depakote increased 1000mg q HS with labs and levels in 3 days and an ammonia level. Pt will need placement upon discharge; SW to work with pt guardian in finding placement. BA MUÑIZ Dec 05, 2020 16:46
--- NOTE | 2020-12-05 16:55 | NUR ---
MARY returned call to pt guardian, Mell, who thought she was planning to participate in tx team. MARY apologized and will set it up for her to participate next week via phone. MARY informed her that pt tends to wander and exit seek via door checking and asking staff to help him find his car/keys. Pt has not shown major aggression, but once he is focused, it is sometimes difficult to get pt redirected. Mell and MARY went over the recommendation for pt to be placed in a Memory Care unit to which Mell questioned how much SW could help. Pt children live in [place] and she would like to keep him as close to them as possible. MARY questioned pt financial situation as he was just placed into care. Mell reports that she has not gotten that far; however, she does plan to be at pt house to assess everything and questions if pt brought his wallet and keys. MARY will have to check pt chart as she is unaware as to what belongings he brought with him and get back to her.
[2020-12-05] MEDS: QUEtiapine 25 MG TABLET. PO SCH (20:43)
[2020-12-05] MEDS: MELATONIN 3 MG TABLET PO SCH (20:43)
[2020-12-05] MEDS: ATORVASTATIN CALCIUM 20 MG TABLET PO SCH (20:44)
[2020-12-05] MEDS: AMITRIPTYLINE HCL 25 MG TABLET PO SCH (20:44)
[2020-12-05] MEDS: DIVALPROEX ER 500 MG TAB.ER.24H PO SCH (20:44)
--- NOTE | 2020-12-05 21:06 | PDOC ---
Exam Note: Gus Note: Please also refer to the separate dictated note~for this date of service dictated separately.~Patient seen individually. Discussed the patient with Nursing staff reviewed the chart.~Reviewed interim history and current functioning. Reviewed vital signs,~Labs/ Radiology~and current medications noted below. Continue current treatment with the changes noted in the dictated addendum note Assessment: Vital Signs/I&O: Vital Signs Date Time Temp Pulse Resp B/P (MAP) Pulse Ox O2 Delivery O2 Flow Rate FiO2 12/05/20 17:31 63 146/78 12/05/20 15:57 97.2 18 97 12/04/20 06:05 Room Air I & O 12/04/20 12/04/20 12/05/20 15:00 23:00 07:00 Intake Total 480 ml 320 ml Balance 480 ml 320 ml Labs: Laboratory Tests Test 12/05/20 06:34 White Blood Count 6.1 x10^3/uL (4.0-11.0) Red Blood Count 4.49 x10^6/uL (4.30-5.70) Hemoglobin 13.8 g/dL (13.0-17.5) Hematocrit 40.2 % (39.0-53.0) Mean Corpuscular Volume 89 fL (79-100) Mean Corpuscular Hemoglobin 31 pg (25-35) Mean Corpuscular Hemoglobin Concent 34 g/dL (31-37) Red Cell Distribution Width 14.0 % (11.5-14.5) Platelet Count 373 x10^3/uL (140-400) Neutrophils (%) (Auto) 62 % (31-73) Lymphocytes (%) (Auto) 26 % (24-48) Monocytes (%) (Auto) 10 % (0-9) H Eosinophils (%) (Auto) 2 % (0-3) Basophils (%) (Auto) 0 % (0-3) Neutrophils # (Auto) 3.8 x10^3uL (1.8-7.7) Lymphocytes # (Auto) 1.6 x10^3/uL (1.0-4.8) Monocytes # (Auto) 0.6 x10^3/uL (0.0-1.1) Eosinophils # (Auto) 0.1 x10^3/uL (0.0-0.7) Basophils # (Auto) 0.0 x10^3/uL (0.0-0.2) Sodium Level 143 mmol/L (136-145) Potassium Level 3.8 mmol/L (3.5-5.1) Chloride Level 105 mmol/L (98-107) Carbon Dioxide Level 30 mmol/L (21-32) Anion Gap 8 (6-14) Blood Urea Nitrogen 12 mg/dL (8-26) Creatinine 1.0 mg/dL (0.7-1.3) Estimated GFR (Cockcroft-Gault) 71.5 BUN/Creatinine Ratio 12 (6-20) Glucose Level 84 mg/dL (70-99) Calcium Level 9.1 mg/dL (8.5-10.1) Total Bilirubin 0.3 mg/dL (0.2-1.0) Aspartate Amino Transferase (AST) 19 U/L (15-37) Alanine Aminotransferase (ALT) 28 U/L (16-63) Alkaline Phosphatase 130 U/L (46-116) H Ammonia < 10 mcmol/L (11-34) L Total Protein 7.2 g/dL (6.4-8.2) Albumin 3.1 g/dL (3.4-5.0) L Albumin/Globulin Ratio 0.8 (1.0-1.7) L Valproic Acid Level 32 mcg/mL (50-100) L Valproic Acid Last Dose Date 12/04/20 Valproic Acid Last Dose Time 2100 Current Medications: Meds: Laboratory Tests Test 12/05/20 06:34 White Blood Count 6.1 x10^3/uL Red Blood Count 4.49 x10^6/uL Hemoglobin 13.8 g/dL Hematocrit 40.2 % Mean Corpuscular Volume 89 fL Mean Corpuscular Hemoglobin 31 pg Mean Corpuscular Hemoglobin Concent 34 g/dL Red Cell Distribution Width 14.0 % Platelet Count 373 x10^3/uL Neutrophils (%) (Auto) 62 % Lymphocytes (%) (Auto) 26 % Monocytes (%) (Auto) 10 % Eosinophils (%) (Auto) 2 % Basophils (%) (Auto) 0 % Neutrophils # (Auto) 3.8 x10^3uL Lymphocytes # (Auto) 1.6 x10^3/uL Monocytes # (Auto) 0.6 x10^3/uL Eosinophils # (Auto) 0.1 x10^3/uL Basophils # (Auto) 0.0 x10^3/uL Sodium Level 143 mmol/L Potassium Level 3.8 mmol/L Chloride Level 105 mmol/L Carbon Dioxide Level 30 mmol/L Anion Gap 8 Blood Urea Nitrogen 12 mg/dL Creatinine 1.0 mg/dL Estimated GFR (Cockcroft-Gault) 71.5 BUN/Creatinine Ratio 12 Glucose Level 84 mg/dL Calcium Level 9.1 mg/dL Total Bilirubin 0.3 mg/dL Aspartate Amino Transf (AST/SGOT) 19 U/L Alanine Aminotransferase (ALT/SGPT) 28 U/L Alkaline Phosphatase 130 U/L Ammonia < 10 mcmol/L Total Protein 7.2 g/dL Albumin 3.1 g/dL Albumin/Globulin Ratio 0.8 Valproic Acid (Depakene) Level 32 mcg/mL Valproic Acid Last Dose Date 12/04/20 Valproic Acid Last Dose Time 2100 Current Medications Medications (Trade) Dose Ordered Sig/Evaristo Route PRN Reason Start Time Stop Time Status Last Admin Dose Admin Acetaminophen (Tylenol) 650 mg PRN Q6HRS PRN PO MILD PAIN / TEMP > 100.3'F 11/25/20 18:00 Multi-Ingredient Ointment (Analgesic [place]) 1 addison PRN QID PRN TP MUSCLE PAIN 11/25/20 18:00 Al Hydroxide/Mg Hydroxide (Mylanta Plus Xs) 15 ml PRN AFTMEALHC PRN PO DYSPEPSIA 11/25/20 18:00 Magnesium Hydroxide (Milk Of Magnesia) 2,400 mg PRN QHS PRN PO CONSTIPATION 11/25/20 18:00 Amlodipine Besylate (Norvasc) 10 mg DAILY PO 11/26/20 09:00 12/05/20 08:10 Aspirin (Aspirin Chewable) 81 mg DAILY PO 11/26/20 09:00 12/05/20 08:10 Carvedilol (Coreg) 6.25 mg BIDWMEALS PO 11/25/20 18:30 12/05/20 17:31 Lisinopril (Prinivil) 10 mg DAILY PO 11/26/20 09:00 11/26/20 16:16 DC Quetiapine Fumarate (SEROquel) 25 mg QHS PO 11/25/20 21:00 12/05/20 20:43 Tamsulosin HCl (Flomax) 0.4 mg DAILY PO 11/26/20 09:00 12/05/20 08:10 Amoxicillin (Amoxil) 500 mg [id number] PO 11/25/20 21:00 12/02/20 14:01 DC 12/02/20 14:15 Atorvastatin Calcium (Lipitor) 40 mg QHS PO 11/25/20 21:00 12/05/20 20:44 Folic Acid (Folic Acid) 1 mg DAILY PO 11/26/20 09:00 12/05/20 08:10 Lidocaine (Lidoderm) 1 patch DAILY TD 11/26/20 09:00 12/05/20 08:11 Multivitamins/ Calcium (Thera-M Plus) 1 tab DAILY PO 11/26/20 09:00 12/05/20 08:10 Thiamine HCl (Vitamin B-1) 100 mg BID PO 11/25/20 21:00 12/05/20 20:43 Olanzapine (ZyPREXA ZYDIS) 2.5 mg PRN Q2HR PRN PO PSYCHOSIS 11/25/20 21:15 12/05/20 07:37 Trazodone HCl (Desyrel) 50 mg PRN QHS PRN PO INSOMNIA, MAY REPEAT IN 1HR 11/25/20 21:15 12/04/20 21:39 Mirtazapine (Remeron) 7.5 mg QHS PO 11/26/20 21:00 11/28/20 12:23 DC 11/27/20 20:00 Lactobacillus Rhamnosus (Culturelle) 1 cap BID PO 11/27/20 09:00 12/05/20 20:44 Sertraline HCl (Zoloft) 25 mg DAILY PO 11/28/20 09:00 11/30/20 09:01 DC 11/30/20 08:39 Sertraline HCl (Zoloft) 50 mg DAILY PO 12/01/20 09:00 12/03/20 11:00 DC 12/03/20 08:05 Mirtazapine (Remeron) 15 mg QHS PO 11/28/20 21:00 11/29/20 18:47 DC 11/28/20 19:38 Hydroxyzine HCl (Atarax) 25 mg PRN Q2HR PRN PO ABDOMINAL CRAMPS 11/28/20 21:45 12/03/20 02:37 Lorazepam (Ativan) 0.5 mg PRN Q4HRS PRN PO ANXIETY / AGITATION 11/28/20 21:45 11/29/20 21:45 DC Amitriptyline HCl (Elavil) 25 mg QHS PO 11/29/20 21:00 12/05/20 20:44 Melatonin (Melatonin) 3 mg QHS PO 11/29/20 21:00 12/05/20 20:43 Sertraline HCl (Zoloft) 75 mg DAILY PO 12/04/20 09:00 12/05/20 08:11 Divalproex Sodium (Depakote Er) 500 mg QHS PO 12/02/20 21:00 12/05/20 12:29 DC 12/04/20 20:08 Divalproex Sodium (Depakote Er) 1,000 mg QHS PO 12/05/20 21:00 12/05/20 20:44 Current Medications Medications (Trade) Dose Ordered Sig/Evaristo Route PRN Reason Start Time Stop Time Status Last Admin Dose Admin Divalproex Sodium (Depakote Er) 1,000 mg QHS PO 12/05/20 21:00 12/05/20 20:44 I have reviewed the current psychotropics carefully including drug interactions. Risk benefit ratio favors no change other than as noted in my dictated progress note. Diagnosis: Problems: (1) Major neurocognitive disorder (2) Impulse control disorder, unspecified (3) Anxiety disorder, unspecified (4) Dementia, vascular, with depression (5) Dementia, vascular, with delusions (6) Dementia in Alzheimer's disease with depression (7) Dementia in Alzheimer's disease with delusions (8) Dementia of the Alzheimer's type with early onset with behavioral disturbance DONA BOTELLO MD Dec 05, 2020 21:06
[2020-12-05] MEDS: traZODone 50 MG TABLET. PO PRN (23:07)
--- NOTE | 2020-12-05 23:51 | NUR ---
Pt wandering around unit this evening, pleasantly confused. Compliant with whole medications. Pt up and down numerous times after going to bed. PRN Trazodone and Zydis administered.
[2020-12-06 05:36] VITALS: BP 158/91
--- NOTE | 2020-12-06 08:18 | PDOC ---
Exam Note: Gus Note: This note is a late entry for 12/05/2020 covers elements not covered in my initial note. Subjective: The patient was reviewed on telehealth rounds in the morning of 12/05/2020 for a treatment team meeting with Dolores Contreras, Mell Larios and Denise (social services coordinator), [facility] and Hanane OVIEDO. Discussed with nursing staff, reviewed the chart. The patient slept 6 hours previous night. Appetite is 75%. Overall the patient has done well till about 10 a.m., then he was agitated, paranoid. Received trazodone and Zyprexa. Valproic acid level subtherapeutic at 32. He has been confused, looking for his sister stating he is not a patient here. He did attend groups about emotions and while playing Bingo on Saturday per [facility] staff. A temporary guardian has been appointed by the court. Review of Systems: No CV, , pulmonary, eye, ENT system symptoms on review. Mental Status Exam: The patient is oriented to himself. He was pleasant, verbal and interactive on telehealth rounds in the evening. Insight and judgment, recent and remote memory, attention and concentration, fund of knowledge is poor consistent with his diagnosis. Laboratory Data: Reviewed. Impression: Major neurocognitive disorder Alzheimer vascular with delusion, depression, behavioral disturbance. Anxiety disorder unspecified. Impulse control disorder unspecified. Plan: Increase Depakote ER to 1000 mg h.s. Check CBC, CMP, valproic acid level, ammonia level in 3 days. Continue rest of the psychotropics unchanged. Amoxil has been completed for his UTI. Assessment: Vital Signs/I&O: Vital Signs Date Time Temp Pulse Resp B/P (MAP) Pulse Ox O2 Delivery O2 Flow Rate FiO2 12/06/20 05:36 97.7 68 16 158/91 (113) 98 Room Air I & O 12/05/20 12/05/20 12/06/20 15:00 23:00 07:00 Intake Total 1070 ml 600 ml Balance 1070 ml 600 ml Current Medications: Meds: Current Medications Medications (Trade) Dose Ordered Sig/Evaristo Route PRN Reason Start Time Stop Time Status Last Admin Dose Admin Acetaminophen (Tylenol) 650 mg PRN Q6HRS PRN PO MILD PAIN / TEMP > 100.3'F 11/25/20 18:00 Multi-Ingredient Ointment (Analgesic [place]) 1 dadison PRN QID PRN TP MUSCLE PAIN 11/25/20 18:00 Al Hydroxide/Mg Hydroxide (Mylanta Plus Xs) 15 ml PRN AFTMEALHC PRN PO DYSPEPSIA 11/25/20 18:00 Magnesium Hydroxide (Milk Of Magnesia) 2,400 mg PRN QHS PRN PO CONSTIPATION 11/25/20 18:00 Amlodipine Besylate (Norvasc) 10 mg DAILY PO 11/26/20 09:00 12/05/20 08:10 Aspirin (Aspirin Chewable) 81 mg DAILY PO 11/26/20 09:00 12/05/20 08:10 Carvedilol (Coreg) 6.25 mg BIDWMEALS PO 11/25/20 18:30 12/05/20 17:31 Lisinopril (Prinivil) 10 mg DAILY PO 11/26/20 09:00 11/26/20 16:16 DC Quetiapine Fumarate (SEROquel) 25 mg QHS PO 11/25/20 21:00 12/05/20 20:43 Tamsulosin HCl (Flomax) 0.4 mg DAILY PO 11/26/20 09:00 12/05/20 08:10 Amoxicillin (Amoxil) 500 mg [id number] PO 11/25/20 21:00 12/02/20 14:01 DC 12/02/20 14:15 Atorvastatin Calcium (Lipitor) 40 mg QHS PO 11/25/20 21:00 12/05/20 20:44 Folic Acid (Folic Acid) 1 mg DAILY PO 11/26/20 09:00 12/05/20 08:10 Lidocaine (Lidoderm) 1 patch DAILY TD 11/26/20 09:00 12/05/20 08:11 Multivitamins/ Calcium (Thera-M Plus) 1 tab DAILY PO 11/26/20 09:00 12/05/20 08:10 Thiamine HCl (Vitamin B-1) 100 mg BID PO 11/25/20 21:00 12/05/20 20:43 Olanzapine (ZyPREXA ZYDIS) 2.5 mg PRN Q2HR PRN PO PSYCHOSIS 11/25/20 21:15 12/05/20 23:07 Trazodone HCl (Desyrel) 50 mg PRN QHS PRN PO INSOMNIA, MAY REPEAT IN 1HR 11/25/20 21:15 12/05/20 23:07 Mirtazapine (Remeron) 7.5 mg QHS PO 11/26/20 21:00 11/28/20 12:23 DC 11/27/20 20:00 Lactobacillus Rhamnosus (Culturelle) 1 cap BID PO 11/27/20 09:00 12/05/20 20:44 Sertraline HCl (Zoloft) 25 mg DAILY PO 11/28/20 09:00 11/30/20 09:01 DC 11/30/20 08:39 Sertraline HCl (Zoloft) 50 mg DAILY PO 12/01/20 09:00 12/03/20 11:00 DC 12/03/20 08:05 Mirtazapine (Remeron) 15 mg QHS PO 11/28/20 21:00 11/29/20 18:47 DC 11/28/20 19:38 Hydroxyzine HCl (Atarax) 25 mg PRN Q2HR PRN PO ABDOMINAL CRAMPS 11/28/20 21:45 12/03/20 02:37 Lorazepam (Ativan) 0.5 mg PRN Q4HRS PRN PO ANXIETY / AGITATION 11/28/20 21:45 11/29/20 21:45 DC Amitriptyline HCl (Elavil) 25 mg QHS PO 11/29/20 21:00 12/05/20 20:44 Melatonin (Melatonin) 3 mg QHS PO 11/29/20 21:00 12/05/20 20:43 Sertraline HCl (Zoloft) 75 mg DAILY PO 12/04/20 09:00 12/05/20 08:11 Divalproex Sodium (Depakote Er) 500 mg QHS PO 12/02/20 21:00 12/05/20 12:29 DC 12/04/20 20:08 Divalproex Sodium (Depakote Er) 1,000 mg QHS PO 12/05/20 21:00 12/05/20 20:44 Current Medications Medications (Trade) Dose Ordered Sig/Evaristo Route PRN Reason Start Time Stop Time Status Last Admin Dose Admin Divalproex Sodium (Depakote Er) 1,000 mg QHS PO 12/05/20 21:00 12/05/20 20:44 I have reviewed the current psychotropics carefully including drug interactions. Risk benefit ratio favors no change other than as noted in my dictated progress note. Diagnosis: Problems: (1) Major neurocognitive disorder (2) Impulse control disorder, unspecified (3) Anxiety disorder, unspecified (4) Dementia, vascular, with depression (5) Dementia, vascular, with delusions (6) Dementia in Alzheimer's disease with depression (7) Dementia in Alzheimer's disease with delusions (8) Dementia of the Alzheimer's type with early onset with behavioral disturbance DONA BOTELLO MD Dec 06, 2020 08:18
[2020-12-06] MEDS: ASPIRIN CHEWABLE 81 MG TABLET. PO SCH (09:40)
[2020-12-06] MEDS: LACTOBACILLUS RHAMNOSUS GG 1 CAPSULE. PO SCH ×2 (09:40→20:16)
[2020-12-06] MEDS: TAMSULOSIN 0.4 MG CAP.ER.24H. PO SCH (09:41)
[2020-12-06] MEDS: SERTRALINE 25 MG TABLET. PO SCH (09:41)
[2020-12-06] MEDS: FOLIC ACID 1 MG TABLET PO SCH (09:41)
[2020-12-06] MEDS: amLODIPine BESYLATE 10 MG TABLET PO SCH (09:41)
[2020-12-06] MEDS: MULTIVITAMIN with MINERAL TABLET. PO SCH (09:41)
[2020-12-06] MEDS: THIAMINE 100 MG TABLET. PO SCH ×2 (09:42→20:37)
[2020-12-06] MEDS: LIDOCAINE (700MG/PATCH) PATCH. TD SCH (09:43)
[2020-12-06] MEDS: CARVEDILOL 6.25 MG TABLET PO SCH ×2 (09:43→17:37)
--- NOTE | 2020-12-06 14:05 | NUR ---
Nursing note: Pt spent most of the morning resting in bed, but has been up walking around the unit since. He is pleasant, med compliant and cooperative. When giving his AM meds, pt stated "I have to get out of bed soon and get to work". He is easily redirected. Will continue to monitor.
[2020-12-06 15:38] VITALS: BP 129/73
[2020-12-06] MEDS: DIVALPROEX ER 500 MG TAB.ER.24H PO SCH (20:16)
[2020-12-06] MEDS: MELATONIN 3 MG TABLET PO SCH (20:16)
[2020-12-06] MEDS: ATORVASTATIN CALCIUM 20 MG TABLET PO SCH (20:16)
[2020-12-06] MEDS: AMITRIPTYLINE HCL 25 MG TABLET PO SCH (20:16)
[2020-12-06] MEDS: QUEtiapine 25 MG TABLET. PO SCH (20:17)
--- NOTE | 2020-12-06 21:08 | PDOC ---
Exam Note: Gus Note: Please also refer to the separate dictated note~for this date of service dictated separately.~Patient seen individually. Discussed the patient with Nursing staff reviewed the chart.~Reviewed interim history and current functioning. Reviewed vital signs,~Labs/ Radiology~and current medications noted below. Continue current treatment with the changes noted in the dictated addendum note Assessment: Vital Signs/I&O: Vital Signs Date Time Temp Pulse Resp B/P (MAP) Pulse Ox O2 Delivery O2 Flow Rate FiO2 12/06/20 17:37 75 129/73 12/06/20 15:38 97.4 20 99 Room Air I & O 12/05/20 12/05/20 12/06/20 15:00 23:00 07:00 Intake Total 1070 ml 600 ml Balance 1070 ml 600 ml Current Medications: Meds: Current Medications Medications (Trade) Dose Ordered Sig/Evaristo Route PRN Reason Start Time Stop Time Status Last Admin Dose Admin Acetaminophen (Tylenol) 650 mg PRN Q6HRS PRN PO MILD PAIN / TEMP > 100.3'F 11/25/20 18:00 Multi-Ingredient Ointment (Analgesic [place]) 1 addison PRN QID PRN TP MUSCLE PAIN 11/25/20 18:00 Al Hydroxide/Mg Hydroxide (Mylanta Plus Xs) 15 ml PRN AFTMEALHC PRN PO DYSPEPSIA 11/25/20 18:00 Magnesium Hydroxide (Milk Of Magnesia) 2,400 mg PRN QHS PRN PO CONSTIPATION 11/25/20 18:00 Amlodipine Besylate (Norvasc) 10 mg DAILY PO 11/26/20 09:00 12/06/20 09:41 Aspirin (Aspirin Chewable) 81 mg DAILY PO 11/26/20 09:00 12/06/20 09:40 Carvedilol (Coreg) 6.25 mg BIDWMEALS PO 11/25/20 18:30 12/06/20 17:37 Lisinopril (Prinivil) 10 mg DAILY PO 11/26/20 09:00 11/26/20 16:16 DC Quetiapine Fumarate (SEROquel) 25 mg QHS PO 11/25/20 21:00 12/06/20 20:17 Tamsulosin HCl (Flomax) 0.4 mg DAILY PO 11/26/20 09:00 12/06/20 09:41 Amoxicillin (Amoxil) 500 mg [id number] PO 11/25/20 21:00 12/02/20 14:01 DC 12/02/20 14:15 Atorvastatin Calcium (Lipitor) 40 mg QHS PO 11/25/20 21:00 12/06/20 20:16 Folic Acid (Folic Acid) 1 mg DAILY PO 11/26/20 09:00 12/06/20 09:41 Lidocaine (Lidoderm) 1 patch DAILY TD 11/26/20 09:00 12/06/20 09:43 Multivitamins/ Calcium (Thera-M Plus) 1 tab DAILY PO 11/26/20 09:00 12/06/20 09:41 Thiamine HCl (Vitamin B-1) 100 mg BID PO 11/25/20 21:00 12/06/20 20:37 Olanzapine (ZyPREXA ZYDIS) 2.5 mg PRN Q2HR PRN PO PSYCHOSIS 11/25/20 21:15 12/05/20 23:07 Trazodone HCl (Desyrel) 50 mg PRN QHS PRN PO INSOMNIA, MAY REPEAT IN 1HR 11/25/20 21:15 12/05/20 23:07 Mirtazapine (Remeron) 7.5 mg QHS PO 11/26/20 21:00 11/28/20 12:23 DC 11/27/20 20:00 Lactobacillus Rhamnosus (Culturelle) 1 cap BID PO 11/27/20 09:00 12/06/20 20:16 Sertraline HCl (Zoloft) 25 mg DAILY PO 11/28/20 09:00 11/30/20 09:01 DC 11/30/20 08:39 Sertraline HCl (Zoloft) 50 mg DAILY PO 12/01/20 09:00 12/03/20 11:00 DC 12/03/20 08:05 Mirtazapine (Remeron) 15 mg QHS PO 11/28/20 21:00 11/29/20 18:47 DC 11/28/20 19:38 Hydroxyzine HCl (Atarax) 25 mg PRN Q2HR PRN PO ABDOMINAL CRAMPS 11/28/20 21:45 12/03/20 02:37 Lorazepam (Ativan) 0.5 mg PRN Q4HRS PRN PO ANXIETY / AGITATION 11/28/20 21:45 11/29/20 21:45 DC Amitriptyline HCl (Elavil) 25 mg QHS PO 11/29/20 21:00 12/06/20 20:16 Melatonin (Melatonin) 3 mg QHS PO 11/29/20 21:00 12/06/20 20:16 Sertraline HCl (Zoloft) 75 mg DAILY PO 12/04/20 09:00 12/06/20 09:41 Divalproex Sodium (Depakote Er) 500 mg QHS PO 12/02/20 21:00 12/05/20 12:29 DC 12/04/20 20:08 Divalproex Sodium (Depakote Er) 1,000 mg QHS PO 12/05/20 21:00 12/06/20 20:16 I have reviewed the current psychotropics carefully including drug interactions. Risk benefit ratio favors no change other than as noted in my dictated progress note. Diagnosis: Problems: (1) Major neurocognitive disorder (2) Impulse control disorder, unspecified (3) Anxiety disorder, unspecified (4) Dementia, vascular, with depression (5) Dementia, vascular, with delusions (6) Dementia in Alzheimer's disease with depression (7) Dementia in Alzheimer's disease with delusions (8) Dementia of the Alzheimer's type with early onset with behavioral disturbance DONA BOTELLO MD Dec 06, 2020 21:08
--- NOTE | 2020-12-06 23:49 | NUR ---
Nursing Note Pt wanders the unit pleasant cooperative and compliant meds. Denies complaints, smiles on approach in good spirits.
[2020-12-07 05:33] VITALS: BP 100/59
[2020-12-07] MEDS: MULTIVITAMIN with MINERAL TABLET. PO SCH (08:07)
[2020-12-07] MEDS: SERTRALINE 25 MG TABLET. PO SCH (08:07)
[2020-12-07] MEDS: TAMSULOSIN 0.4 MG CAP.ER.24H. PO SCH (08:07)
[2020-12-07] MEDS: ASPIRIN CHEWABLE 81 MG TABLET. PO SCH (08:07)
[2020-12-07] MEDS: FOLIC ACID 1 MG TABLET PO SCH (08:07)
[2020-12-07] MEDS: THIAMINE 100 MG TABLET. PO SCH ×2 (08:07→19:34)
[2020-12-07] MEDS: LACTOBACILLUS RHAMNOSUS GG 1 CAPSULE. PO SCH ×2 (08:07→19:34)
--- NOTE | 2020-12-07 08:07 | PDOC ---
Exam Note: Gus Note: This note is a late entry for 12/06/2020 covers elements not covered in my initial note. Subjective: The patient was reviewed on telehealth rounds in the evening of 12/06/2020 with Radha OVIEDO. Discussed with nursing staff, reviewed the chart. The patient slept 6-1/4 hours previous night. He has been wandering. Overall the patient has been pleasant, confused. He was wearing a mask as I met with him on telehealth rounds in the evening. Review of Systems: No CV, , pulmonary, eye, ENT system symptoms on review. Mental Status Exam: The patient is oriented to himself. He is pleasant, verbal, interactive, and confused. Insight and judgment, recent and remote memory, attention and concentration, fund of knowledge is poor consistent with his diagnosis. Laboratory Data: Reviewed. Impression: Major neurocognitive disorder Alzheimer vascular with delusion, depression, behavioral disturbance. Anxiety disorder unspecified. Impulse c ontrol disorder unspecified. Plan: No change from initial note. Assessment: Vital Signs/I&O: Vital Signs Date Time Temp Pulse Resp B/P (MAP) Pulse Ox O2 Delivery O2 Flow Rate FiO2 12/07/20 05:33 96.9 60 16 100/59 (73) 97 12/06/20 15:38 Room Air I & O 12/06/20 12/06/20 12/07/20 15:00 23:00 07:00 Intake Total 720 ml 480 ml Balance 720 ml 480 ml Current Medications: Meds: Current Medications Medications (Trade) Dose Ordered Sig/Evaristo Route PRN Reason Start Time Stop Time Status Last Admin Dose Admin Acetaminophen (Tylenol) 650 mg PRN Q6HRS PRN PO MILD PAIN / TEMP > 100.3'F 11/25/20 18:00 Multi-Ingredient Ointment (Analgesic [place]) 1 addison PRN QID PRN TP MUSCLE PAIN 11/25/20 18:00 Al Hydroxide/Mg Hydroxide (Mylanta Plus Xs) 15 ml PRN AFTMEALHC PRN PO DYSPEPSIA 11/25/20 18:00 Magnesium Hydroxide (Milk Of Magnesia) 2,400 mg PRN QHS PRN PO CONSTIPATION 11/25/20 18:00 Amlodipine Besylate (Norvasc) 10 mg DAILY PO 11/26/20 09:00 12/06/20 09:41 Aspirin (Aspirin Chewable) 81 mg DAILY PO 11/26/20 09:00 12/06/20 09:40 Carvedilol (Coreg) 6.25 mg BIDWMEALS PO 11/25/20 18:30 12/06/20 17:37 Lisinopril (Prinivil) 10 mg DAILY PO 11/26/20 09:00 11/26/20 16:16 DC Quetiapine Fumarate (SEROquel) 25 mg QHS PO 11/25/20 21:00 12/06/20 20:17 Tamsulosin HCl (Flomax) 0.4 mg DAILY PO 11/26/20 09:00 12/06/20 09:41 Amoxicillin (Amoxil) 500 mg [id number] PO 11/25/20 21:00 12/02/20 14:01 DC 12/02/20 14:15 Atorvastatin Calcium (Lipitor) 40 mg QHS PO 11/25/20 21:00 12/06/20 20:16 Folic Acid (Folic Acid) 1 mg DAILY PO 11/26/20 09:00 12/06/20 09:41 Lidocaine (Lidoderm) 1 patch DAILY TD 11/26/20 09:00 12/06/20 09:43 Multivitamins/ Calcium (Thera-M Plus) 1 tab DAILY PO 11/26/20 09:00 12/06/20 09:41 Thiamine HCl (Vitamin B-1) 100 mg BID PO 11/25/20 21:00 12/06/20 20:37 Olanzapine (ZyPREXA ZYDIS) 2.5 mg PRN Q2HR PRN PO PSYCHOSIS 11/25/20 21:15 12/05/20 23:07 Trazodone HCl (Desyrel) 50 mg PRN QHS PRN PO INSOMNIA, MAY REPEAT IN 1HR 11/25/20 21:15 12/05/20 23:07 Mirtazapine (Remeron) 7.5 mg QHS PO 11/26/20 21:00 11/28/20 12:23 DC 11/27/20 20:00 Lactobacillus Rhamnosus (Culturelle) 1 cap BID PO 11/27/20 09:00 12/06/20 20:16 Sertraline HCl (Zoloft) 25 mg DAILY PO 11/28/20 09:00 11/30/20 09:01 DC 11/30/20 08:39 Sertraline HCl (Zoloft) 50 mg DAILY PO 12/01/20 09:00 12/03/20 11:00 DC 12/03/20 08:05 Mirtazapine (Remeron) 15 mg QHS PO 11/28/20 21:00 11/29/20 18:47 DC 11/28/20 19:38 Hydroxyzine HCl (Atarax) 25 mg PRN Q2HR PRN PO ABDOMINAL CRAMPS 11/28/20 21:45 12/03/20 02:37 Lorazepam (Ativan) 0.5 mg PRN Q4HRS PRN PO ANXIETY / AGITATION 11/28/20 21:45 11/29/20 21:45 DC Amitriptyline HCl (Elavil) 25 mg QHS PO 11/29/20 21:00 12/06/20 20:16 Melatonin (Melatonin) 3 mg QHS PO 11/29/20 21:00 12/06/20 20:16 Sertraline HCl (Zoloft) 75 mg DAILY PO 12/04/20 09:00 12/06/20 09:41 Divalproex Sodium (Depakote Er) 500 mg QHS PO 12/02/20 21:00 12/05/20 12:29 DC 12/04/20 20:08 Divalproex Sodium (Depakote Er) 1,000 mg QHS PO 12/05/20 21:00 12/06/20 20:16 I have reviewed the current psychotropics carefully including drug interactions. Risk benefit ratio favors no change other than as noted in my dictated progress note. Diagnosis: Problems: (1) Major neurocognitive disorder (2) Impulse control disorder, unspecified (3) Anxiety disorder, unspecified (4) Dementia, vascular, with depression (5) Dementia, vascular, with delusions (6) Dementia in Alzheimer's disease with depression (7) Dementia in Alzheimer's disease with delusions (8) Dementia of the Alzheimer's type with early onset with behavioral dis turbance DONA BOTELLO MD Dec 07, 2020 08:07
[2020-12-07] MEDS: CARVEDILOL 6.25 MG TABLET PO SCH ×2 (08:23→17:14)
[2020-12-07] MEDS: LIDOCAINE (700MG/PATCH) PATCH. TD SCH (08:24)
[2020-12-07] MEDS: amLODIPine BESYLATE 10 MG TABLET PO SCH (08:24)
--- NOTE | 2020-12-07 10:55 | NUR ---
Nursing note: Pt is in his room at time of AM med pass and assessment. He is pleasant, med compliant and cooperative. He is disorganized and likes to walk around the unit. Will continue to monitor.
--- NOTE | 2020-12-07 11:55 | NUR ---
MARY returned call to Mell, pt guardian, and left a message informing her that pt did not bring keys or a wallet. 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 In the message, MARY let Mell know that if she needs anything more from MARY to let her know.
[2020-12-07 15:39] VITALS: BP 112/60
[2020-12-07] MEDS: AMITRIPTYLINE HCL 25 MG TABLET PO SCH (19:33)
[2020-12-07] MEDS: MELATONIN 3 MG TABLET PO SCH (19:34)
[2020-12-07] MEDS: QUEtiapine 25 MG TABLET. PO SCH (19:34)
[2020-12-07] MEDS: ATORVASTATIN CALCIUM 20 MG TABLET PO SCH (19:34)
[2020-12-07] MEDS: DIVALPROEX ER 500 MG TAB.ER.24H PO SCH (19:34)
--- NOTE | 2020-12-07 21:12 | PDOC ---
Exam Note: Gus Note: Please also refer to the separate dictated note~for this date of service dictated separately.~Patient seen individually. Discussed the patient with Nursing staff reviewed the chart.~Reviewed interim history and current functioning. Reviewed vital signs,~Labs/ Radiology~and current medications noted below. Continue current treatment with the changes noted in the dictated addendum note Assessment: Vital Signs/I&O: Vital Signs Date Time Temp Pulse Resp B/P (MAP) Pulse Ox O2 Delivery O2 Flow Rate FiO2 12/07/20 17:14 85 112/60 12/07/20 15:39 97.8 18 98 Room Air I & O 12/06/20 12/06/20 12/07/20 15:00 23:00 07:00 Intake Total 720 ml 480 ml Balance 720 ml 480 ml Current Medications: Meds: Current Medications Medications (Trade) Dose Ordered Sig/Evaristo Route PRN Reason Start Time Stop Time Status Last Admin Dose Admin Acetaminophen (Tylenol) 650 mg PRN Q6HRS PRN PO MILD PAIN / TEMP > 100.3'F 11/25/20 18:00 Multi-Ingredient Ointment (Analgesic [place]) 1 addison PRN QID PRN TP MUSCLE PAIN 11/25/20 18:00 Al Hydroxide/Mg Hydroxide (Mylanta Plus Xs) 15 ml PRN AFTMEALHC PRN PO DYSPEPSIA 11/25/20 18:00 Magnesium Hydroxide (Milk Of Magnesia) 2,400 mg PRN QHS PRN PO CONSTIPATION 11/25/20 18:00 Amlodipine Besylate (Norvasc) 10 mg DAILY PO 11/26/20 09:00 12/07/20 08:24 Aspirin (Aspirin Chewable) 81 mg DAILY PO 11/26/20 09:00 12/07/20 08:07 Carvedilol (Coreg) 6.25 mg BIDWMEALS PO 11/25/20 18:30 12/07/20 17:14 Lisinopril (Prinivil) 10 mg DAILY PO 11/26/20 09:00 11/26/20 16:16 DC Quetiapine Fumarate (SEROquel) 25 mg QHS PO 11/25/20 21:00 12/07/20 19:34 Tamsulosin HCl (Flomax) 0.4 mg DAILY PO 11/26/20 09:00 12/07/20 08:07 Amoxicillin (Amoxil) 500 mg [id number] PO 11/25/20 21:00 12/02/20 14:01 DC 12/02/20 14:15 Atorvastatin Calcium (Lipitor) 40 mg QHS PO 11/25/20 21:00 12/07/20 19:34 Folic Acid (Folic Acid) 1 mg DAILY PO 11/26/20 09:00 12/07/20 08:07 Lidocaine (Lidoderm) 1 patch DAILY TD 11/26/20 09:00 12/07/20 08:24 Multivitamins/ Calcium (Thera-M Plus) 1 tab DAILY PO 11/26/20 09:00 12/07/20 08:07 Thiamine HCl (Vitamin B-1) 100 mg BID PO 11/25/20 21:00 12/07/20 19:34 Olanzapine (ZyPREXA ZYDIS) 2.5 mg PRN Q2HR PRN PO PSYCHOSIS 11/25/20 21:15 12/05/20 23:07 Trazodone HCl (Desyrel) 50 mg PRN QHS PRN PO INSOMNIA, MAY REPEAT IN 1HR 11/25/20 21:15 12/05/20 23:07 Mirtazapine (Remeron) 7.5 mg QHS PO 11/26/20 21:00 11/28/20 12:23 DC 11/27/20 20:00 Lactobacillus Rhamnosus (Culturelle) 1 cap BID PO 11/27/20 09:00 12/07/20 19:34 Sertraline HCl (Zoloft) 25 mg DAILY PO 11/28/20 09:00 11/30/20 09:01 DC 11/30/20 08:39 Sertraline HCl (Zoloft) 50 mg DAILY PO 12/01/20 09:00 12/03/20 11:00 DC 12/03/20 08:05 Mirtazapine (Remeron) 15 mg QHS PO 11/28/20 21:00 11/29/20 18:47 DC 11/28/20 19:38 Hydroxyzine HCl (Atarax) 25 mg PRN Q2HR PRN PO ABDOMINAL CRAMPS 11/28/20 21:45 12/03/20 02:37 Lorazepam (Ativan) 0.5 mg PRN Q4HRS PRN PO ANXIETY / AGITATION 11/28/20 21:45 11/29/20 21:45 DC Amitriptyline HCl (Elavil) 25 mg QHS PO 11/29/20 21:00 12/07/20 19:33 Melatonin (Melatonin) 3 mg QHS PO 11/29/20 21:00 12/07/20 19:34 Sertraline HCl (Zoloft) 75 mg DAILY PO 12/04/20 09:00 12/07/20 08:07 Divalproex Sodium (Depakote Er) 500 mg QHS PO 12/02/20 21:00 12/05/20 12:29 DC 12/04/20 20:08 Divalproex Sodium (Depakote Er) 1,000 mg QHS PO 12/05/20 21:00 12/07/20 19:34 I have reviewed the current psychotropics carefully including drug interactions. Risk benefit ratio favors no change other than as noted in my dictated progress note. Diagnosis: Problems: (1) Major neurocognitive disorder (2) Impulse control disorder, unspecified (3) Anxiety disorder, unspecified (4) Dementia, vascular, with depression (5) Dementia, vascular, with delusions (6) Dementia in Alzheimer's disease with depression (7) Dementia in Alzheimer's disease with delusions (8) Dementia of the Alzheimer's type with early onset with behavioral d DONA Ruiz MD Dec 07, 2020 21:12
--- NOTE | 2020-12-07 23:51 | NUR ---
Nursing Note Pt wanders the unit pleasant cooperative and compliant meds. Denies complaints, smiles on approach in good spirits.
[2020-12-08 06:10] VITALS: BP 109/68
[2020-12-08 07:09] LABS: BASO % 1 % (0-3); EOS # 0.1 x10^3/uL (0.0-0.7); EOS % 3 % (0-3); HEMOGLOBIN 13.8 g/dL (13.0-17.5); LYMPH # 1.9 x10^3/uL (1.0-4.8); LYMPH % 34 % (24-48); MEAN CORPUSCULAR HEMOGLOBIN 31 pg (25-35); MEAN CORPUSCULAR HGB CONC 34 g/dL (31-37); MEAN CORPUSCULAR VOLUME 90 fL (79-100); MONO # 0.5 x10^3/uL (0.0-1.1); MONO % 9 % (0-9); NEUT # 2.9 x10^3uL (1.8-7.7); NEUT % 54 % (31-73); PLATELET COUNT 333 x10^3/uL (140-400); RED BLOOD COUNT 4.45 x10^6/uL (4.30-5.70); WHITE BLOOD COUNT 5.5 x10^3/uL (4.0-11.0)
[2020-12-08 07:18] LABS: ALBUMIN/GLOBULIN RATIO 0.8 (1.0-1.7); ALK PHOS 108 U/L (46-116); ALT (SGPT) 24 U/L (16-63); ANION GAP 8 (6-14); AST (SGOT) 16 U/L (15-37); BLOOD UREA NITROGEN 16 mg/dL (8-26); BUN/CREATININE RATIO 16 (6-20); CARBON DIOXIDE 28 mmol/L (21-32); CHLORIDE 105 mmol/L (98-107); GFR 71.5; GLUCOSE 83 mg/dL (70-99); POTASSIUM 3.7 mmol/L (3.5-5.1); SODIUM 141 mmol/L (136-145); TOTAL BILIRUBIN 0.3 mg/dL (0.2-1.0); TOTAL PROTEIN 6.7 g/dL (6.4-8.2)
[2020-12-08 07:19] LABS: VAL ACID 53 mcg/mL (50-100)
--- NOTE | 2020-12-08 08:12 | PDOC ---
Exam Note: Gus Note: This note is a late entry for 12/07/2020 covers elements not covered in my initial note. Subjective: The patient was reviewed on telehealth rounds in the evening of 12/07/2020 with Radha OVIEDO. Discussed with nursing staff, reviewed the chart. The patient slept 6 hours previous night. Overall the patient remains confused but has been appropriate, not agitated or aggressive. Review of Systems: No CV, , pulmonary, eye, ENT system symptoms on review. Mental Status Exam: The patient is oriented to himself. He is very pleasant, wearing his mask, interactive, cognitively seems sharper frequently. Abstraction is fair. Computation is impaired. Language function is intact. Attention span is short. Mood and affect withdrawn. Laboratory Data: Reviewed. Impression: Major neurocognitive disorder Alzheimer vascular with delusion, depression, behavioral disturbance. Anxiety disorder unspecified. Impulse control disorder unspecified. Plan: No change from initial note. Assessment: Vital Signs/I&O: Vital Signs Date Time Temp Pulse Resp B/P (MAP) Pulse Ox O2 Delivery O2 Flow Rate FiO2 12/08/20 06:10 97.3 69 17 109/68 (82) 96 Room Air I & O 12/07/20 12/07/20 12/08/20 15:00 23:00 07:00 Intake Total 680 ml 600 ml Balance 680 ml 600 ml Labs: Laboratory Tests Test 12/08/20 06:27 White Blood Count 5.5 x10^3/uL (4.0-11.0) Red Blood Count 4.45 x10^6/uL (4.30-5.70) Hemoglobin 13.8 g/dL (13.0-17.5) Hematocrit 40.0 % (39.0-53.0) Mean Corpuscular Volume 90 fL (79-100) Mean Corpuscular Hemoglobin 31 pg (25-35) Mean Corpuscular Hemoglobin Concent 34 g/dL (31-37) Red Cell Distribution Width 14.0 % (11.5-14.5) Platelet Count 333 x10^3/uL (140-400) Neutrophils (%) (Auto) 54 % (31-73) Lymphocytes (%) (Auto) 34 % (24-48) Monocytes (%) (Auto) 9 % (0-9) Eosinophils (%) (Auto) 3 % (0-3) Basophils (%) (Auto) 1 % (0-3) Neutrophils # (Auto) 2.9 x10^3uL (1.8-7.7) Lymphocytes # (Auto) 1.9 x10^3/uL (1.0-4.8) Monocytes # (Auto) 0.5 x10^3/uL (0.0-1.1) Eosinophils # (Auto) 0.1 x10^3/uL (0.0-0.7) Basophils # (Auto) 0.0 x10^3/uL (0.0-0.2) Sodium Level 141 mmol/L (136-145) Potassium Level 3.7 mmol/L (3.5-5.1) Chloride Level 105 mmol/L (98-107) Carbon Dioxide Level 28 mmol/L (21-32) Anion Gap 8 (6-14) Blood Urea Nitrogen 16 mg/dL (8-26) Creatinine 1.0 mg/dL (0.7-1.3) Estimated GFR (Cockcroft-Gault) 71.5 BUN/Creatinine Ratio 16 (6-20) Glucose Level 83 mg/dL (70-99) Calcium Level 9.0 mg/dL (8.5-10.1) Total Bilirubin 0.3 mg/dL (0.2-1.0) Aspartate Amino Transferase (AST) 16 U/L (15-37) Alanine Aminotransferase (ALT) 24 U/L (16-63) Alkaline Phosphatase 108 U/L (46-116) Ammonia 11 mcmol/L (11-34) Total Protein 6.7 g/dL (6.4-8.2) Albumin 3.0 g/dL (3.4-5.0) L Albumin/Globulin Ratio 0.8 (1.0-1.7) L Valproic Acid Level 53 mcg/mL (50-100) Valproic Acid Last Dose Date 12/07/20 Valproic Acid Last Dose Time 2100 Current Medications: Meds: Laboratory Tests Test 12/08/20 06:27 White Blood Count 5.5 x10^3/uL Red Blood Count 4.45 x10^6/uL Hemoglobin 13.8 g/dL Hematocrit 40.0 % Mean Corpuscular Volume 90 fL Mean Corpuscular Hemoglobin 31 pg Mean Corpuscular Hemoglobin Concent 34 g/dL Red Cell Distribution Width 14.0 % Platelet Count 333 x10^3/uL Neutrophils (%) (Auto) 54 % Lymphocytes (%) (Auto) 34 % Monocytes (%) (Auto) 9 % Eosinophils (%) (Auto) 3 % Basophils (%) (Auto) 1 % Neutrophils # (Auto) 2.9 x10^3uL Lymphocytes # (Auto) 1.9 x10^3/uL Monocytes # (Auto) 0.5 x10^3/uL Eosinophils # (Auto) 0.1 x10^3/uL Basophils # (Auto) 0.0 x10^3/uL Sodium Level 141 mmol/L Potassium Level 3.7 mmol/L Chloride Level 105 mmol/L Carbon Dioxide Level 28 mmol/L Anion Gap 8 Blood Urea Nitrogen 16 mg/dL Creatinine 1.0 mg/dL Estimated GFR (Cockcroft-Gault) 71.5 BUN/Creatinine Ratio 16 Glucose Level 83 mg/dL Calcium Level 9.0 mg/dL Total Bilirubin 0.3 mg/dL Aspartate Amino Transf (AST/SGOT) 16 U/L Alanine Aminotransferase (ALT/SGPT) 24 U/L Alkaline Phosphatase 108 U/L Ammonia 11 mcmol/L Total Protein 6.7 g/dL Albumin 3.0 g/dL Albumin/Globulin Ratio 0.8 Valproic Acid (Depakene) Level 53 mcg/mL Valproic Acid Last Dose Date 12/07/20 Valproic Acid Last Dose Time 2100 Current Medications Medications (Trade) Dose Ordered Sig/Evaristo Route PRN Reason Start Time Stop Time Status Last Admin Dose Admin Acetaminophen (Tylenol) 650 mg PRN Q6HRS PRN PO MILD PAIN / TEMP > 100.3'F 11/25/20 18:00 Multi-Ingredient Ointment (Analgesic [place]) 1 addison PRN QID PRN TP MUSCLE PAIN 11/25/20 18:00 Al Hydroxide/Mg Hydroxide (Mylanta Plus Xs) 15 ml PRN AFTMEALHC PRN PO DYSPEPSIA 11/25/20 18:00 Magnesium Hydroxide (Milk Of Magnesia) 2,400 mg PRN QHS PRN PO CONSTIPATION 11/25/20 18:00 Amlodipine Besylate (Norvasc) 10 mg DAILY PO 11/26/20 09:00 12/07/20 08:24 Aspirin (Aspirin Chewable) 81 mg DAILY PO 11/26/20 09:00 12/07/20 08:07 Carvedilol (Coreg) 6.25 mg BIDWMEALS PO 11/25/20 18:30 12/07/20 17:14 Lisinopril (Prinivil) 10 mg DAILY PO 11/26/20 09:00 11/26/20 16:16 DC Quetiapine Fumarate (SEROquel) 25 mg QHS PO 11/25/20 21:00 12/07/20 19:34 Tamsulosin HCl (Flomax) 0.4 mg DAILY PO 11/26/20 09:00 12/07/20 08:07 Amoxicillin (Amoxil) 500 mg [id number] PO 11/25/20 21:00 12/02/20 14:01 DC 12/02/20 14:15 Atorvastatin Calcium (Lipitor) 40 mg QHS PO 11/25/20 21:00 12/07/20 19:34 Folic Acid (Folic Acid) 1 mg DAILY PO 11/26/20 09:00 12/07/20 08:07 Lidocaine (Lidoderm) 1 patch DAILY TD 11/26/20 09:00 12/07/20 08:24 Multivitamins/ Calcium (Thera-M Plus) 1 tab DAILY PO 11/26/20 09:00 12/07/20 08:07 Thiamine HCl (Vitamin B-1) 100 mg BID PO 11/25/20 21:00 12/07/20 19:34 Olanzapine (ZyPREXA ZYDIS) 2.5 mg PRN Q2HR PRN PO PSYCHOSIS 11/25/20 21:15 12/05/20 23:07 Trazodone HCl (Desyrel) 50 mg PRN QHS PRN PO INSOMNIA, MAY REPEAT IN 1HR 11/25/20 21:15 12/05/20 23:07 Mirtazapine (Remeron) 7.5 mg QHS PO 11/26/20 21:00 11/28/20 12:23 DC 11/27/20 20:00 Lactobacillus Rhamnosus (Culturelle) 1 cap BID PO 11/27/20 09:00 12/07/20 19:34 Sertraline HCl (Zoloft) 25 mg DAILY PO 11/28/20 09:00 11/30/20 09:01 DC 11/30/20 08:39 Sertraline HCl (Zoloft) 50 mg DAILY PO 12/01/20 09:00 12/03/20 11:00 DC 12/03/20 08:05 Mirtazapine (Remeron) 15 mg QHS PO 11/28/20 21:00 11/29/20 18:47 DC 11/28/20 19:38 Hydroxyzine HCl (Atarax) 25 mg PRN Q2HR PRN PO ABDOMINAL CRAMPS 11/28/20 21:45 12/03/20 02:37 Lorazepam (Ativan) 0.5 mg PRN Q4HRS PRN PO ANXIETY / AGITATION 11/28/20 21:45 11/29/20 21:45 DC Amitriptyline HCl (Elavil) 25 mg QHS PO 11/29/20 21:00 12/07/20 19:33 Melatonin (Melatonin) 3 mg QHS PO 11/29/20 21:00 12/07/20 19:34 Sertraline HCl (Zoloft) 75 mg DAILY PO 12/04/20 09:00 12/07/20 08:07 Divalproex Sodium (Depakote Er) 500 mg QHS PO 12/02/20 21:00 12/05/20 12:29 DC 12/04/20 20:08 Divalproex Sodium (Depakote Er) 1,000 mg QHS PO 12/05/20 21:00 12/07/20 19:34 I have reviewed the current psychotropics carefully including drug interactions. Risk benefit ratio favors no change other than as noted in my dictated progress note. Diagnosis: Problems: (1) Major neurocognitive disorder (2) Impulse control disorder, unspecified (3) Anxiety disorder, unspecified (4) Dementia, vascular, with depression (5) Dementia, vascular, with delusions (6) Dementia in Alzheimer's disease with depression (7) Dementia in Alzheimer's disease with delusions (8) Dementia of the Alzheimer's type with early onset with behavioral disturbance DONA BOTELLO MD Dec 08, 2020 08:12
[2020-12-08] MEDS: LACTOBACILLUS RHAMNOSUS GG 1 CAPSULE. PO SCH ×2 (08:26→20:16)
[2020-12-08] MEDS: FOLIC ACID 1 MG TABLET PO SCH (08:26)
[2020-12-08] MEDS: CARVEDILOL 6.25 MG TABLET PO SCH ×2 (08:26→17:13)
[2020-12-08] MEDS: ASPIRIN CHEWABLE 81 MG TABLET. PO SCH (08:26)
[2020-12-08] MEDS: SERTRALINE 25 MG TABLET. PO SCH (08:27)
[2020-12-08] MEDS: TAMSULOSIN 0.4 MG CAP.ER.24H. PO SCH (08:27)
[2020-12-08] MEDS: MULTIVITAMIN with MINERAL TABLET. PO SCH (08:27)
[2020-12-08] MEDS: LIDOCAINE (700MG/PATCH) PATCH. TD SCH (08:28)
[2020-12-08] MEDS: THIAMINE 100 MG TABLET. PO SCH ×2 (08:28→20:16)
[2020-12-08] MEDS: amLODIPine BESYLATE 10 MG TABLET PO SCH (08:28)
[2020-12-08] MEDS: MAG HYDROX/AL HYDROX/SIMETH 30 ML ORAL.SUSP PO PRN (08:39)
--- NOTE | 2020-12-08 13:04 | NUR ---
Pt has been appropriate in speech and behaviors thus far. He had an episode of wandering about early in the morning. He complained of 1 episode of vomiting early in the morning, this was not observed by staff. PRN Mylanta given at apprx 0840. He has been complaint with medications and staff requests. No c/o pain. Denies SI/HI. Alert to self only. Lung CTA, Bowel sounds present. He states he had a BM on 12/07/20.
[2020-12-08 15:55] VITALS: BP 144/86
[2020-12-08] MEDS: DIVALPROEX ER 500 MG TAB.ER.24H PO SCH (20:15)
[2020-12-08] MEDS: AMITRIPTYLINE HCL 25 MG TABLET PO SCH (20:15)
[2020-12-08] MEDS: QUEtiapine 25 MG TABLET. PO SCH (20:16)
[2020-12-08] MEDS: ATORVASTATIN CALCIUM 20 MG TABLET PO SCH (20:16)
[2020-12-08] MEDS: MELATONIN 3 MG TABLET PO SCH (20:16)
--- NOTE | 2020-12-08 21:04 | PDOC ---
Exam Note: Gus Note: Please also refer to the separate dictated note~for this date of service dictated separately.~Patient seen individually. Discussed the patient with Nursing staff reviewed the chart.~Reviewed interim history and current functioning. Reviewed vital signs,~Labs/ Radiology~and current medications noted below. Continue current treatment with the changes noted in the dictated addendum note Assessment: Vital Signs/I&O: Vital Signs Date Time Temp Pulse Resp B/P (MAP) Pulse Ox O2 Delivery O2 Flow Rate FiO2 12/08/20 17:13 86 144/86 12/08/20 15:55 97.4 18 96 12/08/20 06:10 Room Air I & O 12/07/20 12/07/20 12/08/20 15:00 23:00 07:00 Intake Total 680 ml 600 ml Balance 680 ml 600 ml Labs: Laboratory Tests Test 12/08/20 06:27 White Blood Count 5.5 x10^3/uL (4.0-11.0) Red Blood Count 4.45 x10^6/uL (4.30-5.70) Hemoglobin 13.8 g/dL (13.0-17.5) Hematocrit 40.0 % (39.0-53.0) Mean Corpuscular Volume 90 fL (79-100) Mean Corpuscular Hemoglobin 31 pg (25-35) Mean Corpuscular Hemoglobin Concent 34 g/dL (31-37) Red Cell Distribution Width 14.0 % (11.5-14.5) Platelet Count 333 x10^3/uL (140-400) Neutrophils (%) (Auto) 54 % (31-73) Lymphocytes (%) (Auto) 34 % (24-48) Monocytes (%) (Auto) 9 % (0-9) Eosinophils (%) (Auto) 3 % (0-3) Basophils (%) (Auto) 1 % (0-3) Neutrophils # (Auto) 2.9 x10^3uL (1.8-7.7) Lymphocytes # (Auto) 1.9 x10^3/uL (1.0-4.8) Monocytes # (Auto) 0.5 x10^3/uL (0.0-1.1) Eosinophils # (Auto) 0.1 x10^3/uL (0.0-0.7) Basophils # (Auto) 0.0 x10^3/uL (0.0-0.2) Sodium Level 141 mmol/L (136-145) Potassium Level 3.7 mmol/L (3.5-5.1) Chloride Level 105 mmol/L (98-107) Carbon Dioxide Level 28 mmol/L (21-32) Anion Gap 8 (6-14) Blood Urea Nitrogen 16 mg/dL (8-26) Creatinine 1.0 mg/dL (0.7-1.3) Estimated GFR (Cockcroft-Gault) 71.5 BUN/Creatinine Ratio 16 (6-20) Glucose Level 83 mg/dL (70-99) Calcium Level 9.0 mg/dL (8.5-10.1) Total Bilirubin 0.3 mg/dL (0.2-1.0) Aspartate Amino Transferase (AST) 16 U/L (15-37) Alanine Aminotransferase (ALT) 24 U/L (16-63) Alkaline Phosphatase 108 U/L (46-116) Ammonia 11 mcmol/L (11-34) Total Protein 6.7 g/dL (6.4-8.2) Albumin 3.0 g/dL (3.4-5.0) L Albumin/Globulin Ratio 0.8 (1.0-1.7) L Valproic Acid Level 53 mcg/mL (50-100) Valproic Acid Last Dose Date 12/07/20 Valproic Acid Last Dose Time 2100 Current Medications: Meds: Laboratory Tests Test 12/08/20 06:27 White Blood Count 5.5 x10^3/uL Red Blood Count 4.45 x10^6/uL Hemoglobin 13.8 g/dL Hematocrit 40.0 % Mean Corpuscular Volume 90 fL Mean Corpuscular Hemoglobin 31 pg Mean Corpuscular Hemoglobin Concent 34 g/dL Red Cell Distribution Width 14.0 % Platelet Count 333 x10^3/uL Neutrophils (%) (Auto) 54 % Lymphocytes (%) (Auto) 34 % Monocytes (%) (Auto) 9 % Eosinophils (%) (Auto) 3 % Basophils (%) (Auto) 1 % Neutrophils # (Auto) 2.9 x10^3uL Lymphocytes # (Auto) 1.9 x10^3/uL Monocytes # (Auto) 0.5 x10^3/uL Eosinophils # (Auto) 0.1 x10^3/uL Basophils # (Auto) 0.0 x10^3/uL Sodium Level 141 mmol/L Potassium Level 3.7 mmol/L Chloride Level 105 mmol/L Carbon Dioxide Level 28 mmol/L Anion Gap 8 Blood Urea Nitrogen 16 mg/dL Creatinine 1.0 mg/dL Estimated GFR (Cockcroft-Gault) 71.5 BUN/Creatinine Ratio 16 Glucose Level 83 mg/dL Calcium Level 9.0 mg/dL Total Bilirubin 0.3 mg/dL Aspartate Amino Transf (AST/SGOT) 16 U/L Alanine Aminotransferase (ALT/SGPT) 24 U/L Alkaline Phosphatase 108 U/L Ammonia 11 mcmol/L Total Protein 6.7 g/dL Albumin 3.0 g/dL Albumin/Globulin Ratio 0.8 Valproic Acid (Depakene) Level 53 mcg/mL Valproic Acid Last Dose Date 12/07/20 Valproic Acid Last Dose Time 2100 Current Medications Medications (Trade) Dose Ordered Sig/Evaristo Route PRN Reason Start Time Stop Time Status Last Admin Dose Admin Acetaminophen (Tylenol) 650 mg PRN Q6HRS PRN PO MILD PAIN / TEMP > 100.3'F 11/25/20 18:00 Multi-Ingredient Ointment (Analgesic [place]) 1 addison PRN QID PRN TP MUSCLE PAIN 11/25/20 18:00 Al Hydroxide/Mg Hydroxide (Mylanta Plus Xs) 15 ml PRN AFTMEALHC PRN PO DYSPEPSIA 11/25/20 18:00 12/08/20 08:39 Magnesium Hydroxide (Milk Of Magnesia) 2,400 mg PRN QHS PRN PO CONSTIPATION 11/25/20 18:00 Amlodipine Besylate (Norvasc) 10 mg DAILY PO 11/26/20 09:00 12/08/20 08:28 Aspirin (Aspirin Chewable) 81 mg DAILY PO 11/26/20 09:00 12/08/20 08:26 Carvedilol (Coreg) 6.25 mg BIDWMEALS PO 11/25/20 18:30 12/08/20 17:13 Lisinopril (Prinivil) 10 mg DAILY PO 11/26/20 09:00 11/26/20 16:16 DC Quetiapine Fumarate (SEROquel) 25 mg QHS PO 11/25/20 21:00 12/08/20 20:16 Tamsulosin HCl (Flomax) 0.4 mg DAILY PO 11/26/20 09:00 12/08/20 08:27 Amoxicillin (Amoxil) 500 mg [id number] PO 11/25/20 21:00 12/02/20 14:01 DC 12/02/20 14:15 Atorvastatin Calcium (Lipitor) 40 mg QHS PO 11/25/20 21:00 12/08/20 20:16 Folic Acid (Folic Acid) 1 mg DAILY PO 11/26/20 09:00 12/08/20 08:26 Lidocaine (Lidoderm) 1 patch DAILY TD 11/26/20 09:00 12/08/20 08:28 Multivitamins/ Calcium (Thera-M Plus) 1 tab DAILY PO 11/26/20 09:00 12/08/20 08:27 Thiamine HCl (Vitamin B-1) 100 mg BID PO 11/25/20 21:00 12/08/20 20:16 Olanzapine (ZyPREXA ZYDIS) 2.5 mg PRN Q2HR PRN PO PSYCHOSIS 11/25/20 21:15 12/05/20 23:07 Trazodone HCl (Desyrel) 50 mg PRN QHS PRN PO INSOMNIA, MAY REPEAT IN 1HR 11/25/20 21:15 12/05/20 23:07 Mirtazapine (Remeron) 7.5 mg QHS PO 11/26/20 21:00 11/28/20 12:23 DC 11/27/20 20:00 Lactobacillus Rhamnosus (Culturelle) 1 cap BID PO 11/27/20 09:00 12/08/20 20:16 Sertraline HCl (Zoloft) 25 mg DAILY PO 11/28/20 09:00 11/30/20 09:01 DC 11/30/20 08:39 Sertraline HCl (Zoloft) 50 mg DAILY PO 12/01/20 09:00 12/03/20 11:00 DC 12/03/20 08:05 Mirtazapine (Remeron) 15 mg QHS PO 11/28/20 21:00 11/29/20 18:47 DC 11/28/20 19:38 Hydroxyzine HCl (Atarax) 25 mg PRN Q2HR PRN PO ABDOMINAL CRAMPS 11/28/20 21:45 12/03/20 02:37 Lorazepam (Ativan) 0.5 mg PRN Q4HRS PRN PO ANXIETY / AGITATION 11/28/20 21:45 11/29/20 21:45 DC Amitriptyline HCl (Elavil) 25 mg QHS PO 11/29/20 21:00 12/08/20 20:15 Melatonin (Melatonin) 3 mg QHS PO 11/29/20 21:00 12/08/20 20:16 Sertraline HCl (Zoloft) 75 mg DAILY PO 12/04/20 09:00 12/08/20 08:27 Divalproex Sodium (Depakote Er) 500 mg QHS PO 12/02/20 21:00 12/05/20 12:29 DC 12/04/20 20:08 Divalproex Sodium (Depakote Er) 1,000 mg QHS PO 12/05/20 21:00 12/08/20 20:15 I have reviewed the current psychotropics carefully including drug interactions. Risk benefit ratio favors no change other than as noted in my dictated progress note. Diagnosis: Problems: (1) Major neurocognitive disorder (2) Impulse control disorder, unspecified (3) Anxiety disorder, unspecified (4) Dementia, vascular, with depression (5) Dementia, vascular, with delusions (6) Dementia in Alzheimer's disease with depression (7) Dementia in Alzheimer's disease with delusions (8) Dementia of the Alzheimer's type with early onset with behavioral disturbance DONA BOTELLO MD Dec 08, 2020 21:04
--- NOTE | 2020-12-09 01:40 | NUR ---
Nursing Note The patient was located in the hallway for his assessment and medication pass. The patient took his medication whole and was unable to answer assessment questions. The patient was peaceful during interactions with this nurse. The patient wandered the unit occasionally entering other patients rooms. the patient responded well to redirection.
[2020-12-09 06:08] VITALS: BP 115/74
[2020-12-09] MEDS: LIDOCAINE (700MG/PATCH) PATCH. TD SCH (07:55)
[2020-12-09] MEDS: MULTIVITAMIN with MINERAL TABLET. PO SCH (07:55)
[2020-12-09] MEDS: TAMSULOSIN 0.4 MG CAP.ER.24H. PO SCH (07:55)
[2020-12-09] MEDS: LACTOBACILLUS RHAMNOSUS GG 1 CAPSULE. PO SCH ×2 (07:56→19:54)
[2020-12-09] MEDS: FOLIC ACID 1 MG TABLET PO SCH (07:56)
[2020-12-09] MEDS: amLODIPine BESYLATE 10 MG TABLET PO SCH (07:56)
[2020-12-09] MEDS: THIAMINE 100 MG TABLET. PO SCH ×2 (07:56→19:55)
[2020-12-09] MEDS: CARVEDILOL 6.25 MG TABLET PO SCH ×2 (07:56→17:00)
[2020-12-09] MEDS: SERTRALINE 25 MG TABLET. PO SCH (07:56)
[2020-12-09] MEDS: ASPIRIN CHEWABLE 81 MG TABLET. PO SCH (07:56)
--- NOTE | 2020-12-09 08:51 | PDOC ---
Exam Note: Gus Note: This note is a late entry for 12/08/2020 covers elements not covered in my initial note. Subjective: The patient was reviewed on telehealth rounds in the evening of 12/08/2020 with Neris OVIEDO. Discussed with nursing staff, reviewed the chart. The patient slept 5 hours previous night. The patient is compliant with his medications. He is alert, oriented to himself, does complain of some nausea. Received Mylanta with relief of symptoms. Review of Systems: No CV, , pulmonary, eye, ENT system symptoms on review. Mental Status Exam: The patient is oriented to himself. He is very pleasant, verbal, interactive, quite confused during the individual visit. Abstraction is fair. Computation is impaired. Language function is intact. Attention span is short. Mood and affect withdrawn. Laboratory Data: Reviewed. Impression: Major neurocognitive disorder Alzheimer vascular with delusion, depression, behavioral disturbance. Anxiety disorder unspecified. Impulse control disorder unspecified. Plan: No change from initial note. Assessment: Vital Signs/I&O: Vital Signs Date Time Temp Pulse Resp B/P (MAP) Pulse Ox O2 Delivery O2 Flow Rate FiO2 12/09/20 07:56 78 115/74 12/09/20 06:08 97.8 16 96 12/08/20 06:10 Room Air I & O 12/08/20 12/08/20 12/09/20 15:00 23:00 07:00 Intake Total 720 ml 480 ml Balance 720 ml 480 ml Current Medications: Meds: Current Medications Medications (Trade) Dose Ordered Sig/Evaristo Route PRN Reason Start Time Stop Time Status Last Admin Dose Admin Acetaminophen (Tylenol) 650 mg PRN Q6HRS PRN PO MILD PAIN / TEMP > 100.3'F 11/25/20 18:00 Multi-Ingredient Ointment (Analgesic [place]) 1 addison PRN QID PRN TP MUSCLE PAIN 11/25/20 18:00 Al Hydroxide/Mg Hydroxide (Mylanta Plus Xs) 15 ml PRN AFTMEALHC PRN PO DYSPEPSIA 11/25/20 18:00 12/08/20 08:39 Magnesium Hydroxide (Milk Of Magnesia) 2,400 mg PRN QHS PRN PO CONSTIPATION 11/25/20 18:00 Amlodipine Besylate (Norvasc) 10 mg DAILY PO 11/26/20 09:00 12/09/20 07:56 Aspirin (Aspirin Chewable) 81 mg DAILY PO 11/26/20 09:00 12/09/20 07:56 Carvedilol (Coreg) 6.25 mg BIDWMEALS PO 11/25/20 18:30 12/09/20 07:56 Lisinopril (Prinivil) 10 mg DAILY PO 11/26/20 09:00 11/26/20 16:16 DC Quetiapine Fumarate (SEROquel) 25 mg QHS PO 11/25/20 21:00 12/08/20 20:16 Tamsulosin HCl (Flomax) 0.4 mg DAILY PO 11/26/20 09:00 12/09/20 07:55 Amoxicillin (Amoxil) 500 mg [id number] PO 11/25/20 21:00 12/02/20 14:01 DC 12/02/20 14:15 Atorvastatin Calcium (Lipitor) 40 mg QHS PO 11/25/20 21:00 12/08/20 20:16 Folic Acid (Folic Acid) 1 mg DAILY PO 11/26/20 09:00 12/09/20 07:56 Lidocaine (Lidoderm) 1 patch DAILY TD 11/26/20 09:00 12/09/20 07:55 Multivitamins/ Calcium (Thera-M Plus) 1 tab DAILY PO 11/26/20 09:00 12/09/20 07:55 Thiamine HCl (Vitamin B-1) 100 mg BID PO 11/25/20 21:00 12/09/20 07:56 Olanzapine (ZyPREXA ZYDIS) 2.5 mg PRN Q2HR PRN PO PSYCHOSIS 11/25/20 21:15 12/05/20 23:07 Trazodone HCl (Desyrel) 50 mg PRN QHS PRN PO INSOMNIA, MAY REPEAT IN 1HR 11/25/20 21:15 12/05/20 23:07 Mirtazapine (Remeron) 7.5 mg QHS PO 11/26/20 21:00 11/28/20 12:23 DC 11/27/20 20:00 Lactobacillus Rhamnosus (Culturelle) 1 cap BID PO 11/27/20 09:00 12/09/20 07:56 Sertraline HCl (Zoloft) 25 mg DAILY PO 11/28/20 09:00 11/30/20 09:01 DC 11/30/20 08:39 Sertraline HCl (Zoloft) 50 mg DAILY PO 12/01/20 09:00 12/03/20 11:00 DC 12/03/20 08:05 Mirtazapine (Remeron) 15 mg QHS PO 11/28/20 21:00 11/29/20 18:47 DC 11/28/20 19:38 Hydroxyzine HCl (Atarax) 25 mg PRN Q2HR PRN PO ABDOMINAL CRAMPS 11/28/20 21:45 12/03/20 02:37 Lorazepam (Ativan) 0.5 mg PRN Q4HRS PRN PO ANXIETY / AGITATION 11/28/20 21:45 11/29/20 21:45 DC Amitriptyline HCl (Elavil) 25 mg QHS PO 11/29/20 21:00 12/08/20 20:15 Melatonin (Melatonin) 3 mg QHS PO 11/29/20 21:00 12/08/20 20:16 Sertraline HCl (Zoloft) 75 mg DAILY PO 12/04/20 09:00 12/09/20 07:56 Divalproex Sodium (Depakote Er) 500 mg QHS PO 12/02/20 21:00 12/05/20 12:29 DC 12/04/20 20:08 Divalproex Sodium (Depakote Er) 1,000 mg QHS PO 12/05/20 21:00 12/08/20 20:15 I have reviewed the current psychotropics carefully including drug interactions. Risk benefit ratio favors no change other than as noted in my dictated progress note. Diagnosis: Problems: (1) Major neurocognitive disorder (2) Impulse control disorder, unspecified (3) Anxiety disorder, unspecified (4) Dementia, vascular, with depression (5) Dementia, vascular, with delusions (6) Dementia in Alzheimer's disease with depression (7) Dementia in Alzheimer's disease with delusions (8) Dementia of the Alzheimer's type with early onset with behavioral disturbance DONA BOTELLO MD Dec 09, 2020 08:51
[2020-12-09 15:13] VITALS: BP 157/87
--- NOTE | 2020-12-09 18:34 | NUR ---
Pt up adl for meals. Wanders in halls. interacts with peers. Compliant with meds and cares.
[2020-12-09] MEDS: ATORVASTATIN CALCIUM 20 MG TABLET PO SCH (19:54)
[2020-12-09] MEDS: AMITRIPTYLINE HCL 25 MG TABLET PO SCH (19:55)
[2020-12-09] MEDS: MELATONIN 3 MG TABLET PO SCH (19:55)
[2020-12-09] MEDS: DIVALPROEX ER 500 MG TAB.ER.24H PO SCH (19:55)
[2020-12-09] MEDS: traZODone 50 MG TABLET. PO PRN ×2 (19:55→23:48)
[2020-12-09] MEDS: QUEtiapine 25 MG TABLET. PO SCH (19:56)
--- NOTE | 2020-12-09 21:34 | PDOC ---
Exam Note: Gus Note: Please also refer to the separate dictated note~for this date of service dictated separately.~Patient seen individually. Discussed the patient with Nursing staff reviewed the chart.~Reviewed interim history and current functioning. Reviewed vital signs,~Labs/ Radiology~and current medications noted below. Continue current treatment with the changes noted in the dictated addendum note Assessment: Vital Signs/I&O: Vital Signs Date Time Temp Pulse Resp B/P (MAP) Pulse Ox O2 Delivery O2 Flow Rate FiO2 12/09/20 17:00 84 157/87 12/09/20 15:13 97.4 20 93 Room Air I & O 12/08/20 12/08/20 12/09/20 15:00 23:00 07:00 Intake Total 720 ml 480 ml Balance 720 ml 480 ml Current Medications: I have reviewed the current psychotropics carefully including drug interactions. Risk benefit ratio favors no change other than as noted in my dictated progress note. Diagnosis: Problems: (1) Major neurocognitive disorder (2) Impulse control disorder, unspecified (3) Anxiety disorder, unspecified (4) Dementia, vascular, with depression (5) Dementia, vascular, with delusions (6) Dementia in Alzheimer's disease with depression (7) Dementia in Alzheimer's disease with delusions (8) Dementia of the Alzheimer's type with early onset with behavioral disturbance DONA BOTELLO MD Dec 09, 2020 21:34
--- NOTE | 2020-12-10 03:31 | NUR ---
Nursing Note The patient has been restless and disorganized this shift. The patient required frequent redirection r/t entering other patients rooms. The patient was alert and oriented to self only. the patient took his medication whole.
--- NOTE | 2020-12-10 06:16 | NUR ---
Patient awake in room at approximately 0530. Another patient was being very loud, disruptive and extremely combative during morning cares, and required staff assist of 4 to transfer her via [place] lift and get her changed. During this process, patient came charging into the room with his fists raised, wanting to protect his "sister". Male [employer] noticed this action immediately and took steps to prevent the patient from entering the room further. He was turned around by the [employer] MANA[employer] and then he attempted to throw the [employer] MANAGER. He was escorted to the hallway, and this leader writer stepped in to try to deescalate the situation. It was explained to the patient that the female patient was very upset with staff, but he was assured that we would not hurt her and that even though she was screaming very loudly, she was safe. He accepted that explanation, and stated to the [employer] MANAGER "Let her do the talking, OK? She knows what to do." [employer] MANAGER and this leader writer encouraged patient to return to his room at that time. He remains in his room at this time, sitting quietly. Will continue to monitor.
[2020-12-10 06:28] VITALS: BP 131/79
[2020-12-10] MEDS: TAMSULOSIN 0.4 MG CAP.ER.24H. PO SCH (08:06)
[2020-12-10] MEDS: FOLIC ACID 1 MG TABLET PO SCH (08:07)
[2020-12-10] MEDS: SERTRALINE 25 MG TABLET. PO SCH (08:07)
[2020-12-10] MEDS: CARVEDILOL 6.25 MG TABLET PO SCH ×2 (08:07→17:57)
[2020-12-10] MEDS: amLODIPine BESYLATE 10 MG TABLET PO SCH (08:07)
[2020-12-10] MEDS: THIAMINE 100 MG TABLET. PO SCH ×2 (08:07→21:43)
[2020-12-10] MEDS: ASPIRIN CHEWABLE 81 MG TABLET. PO SCH (08:07)
[2020-12-10] MEDS: LACTOBACILLUS RHAMNOSUS GG 1 CAPSULE. PO SCH ×2 (08:08→21:43)
[2020-12-10] MEDS: MULTIVITAMIN with MINERAL TABLET. PO SCH (08:08)
[2020-12-10] MEDS: LIDOCAINE (700MG/PATCH) PATCH. TD SCH (08:09)
[2020-12-10 15:26] VITALS: BP 114/71
--- NOTE | 2020-12-10 17:05 | NUR ---
Pt up adl. Pleasantly confused. Thinks he just got off the back facer. Says he's gonna need a car but he doesn't need it right away.
[2020-12-10] MEDS: MAG HYDROX/AL HYDROX/SIMETH 30 ML ORAL.SUSP PO PRN (18:52)
--- NOTE | 2020-12-10 18:52 | PN ---
DATE: 12/10/2020 SUBJECTIVE: The patient was seen today, met with the staff, chart reviewed and also covering for Dr. Ramirez. Staff reports he is still confused, but pleasant, thinks he works here, talked about his job with [employer]. The patient has significant cognitive deficits, but no major behavior problems. OBSERVATION: VITAL SIGNS: Temperature 98.5, blood pressure 131/70, pulse 69, respirations 16, O2 sat 98%. GENERAL: Slept about 2 hours last night. The patient's appetite is fair. LABORATORY DATA: The patient's lab reviewed. No significant change from prior levels. MEDICATIONS: The patient's current medications include Depakote 1000 mg at night, Zoloft 75 mg daily, amitriptyline 25 mg at night, trazodone 50 mg at night p.r.n., also olanzapine 2.5 mg q.2 hours p.r.n. The patient is currently not exhibiting any side effects to medications. ASSESSMENT: 1. Major neurocognitive disorder, Alzheimer's, vascular with delusion, depression and behavioral disturbances. 2. Anxiety disorder, unspecified. PLAN: To continue with the current treatment plan. LENGTH OF STAY: 5 days. JACKIE DAILEY MD DR: CHRISTOPH/roxy JOB#: [id number] / [id number]
--- NOTE | 2020-12-10 21:09 | PDOC ---
Exam Note: Gus Note: This note is a late entry for 12/09/2020 covers elements not covered in my initial note. Subjective: The patient was reviewed on telehealth rounds in the evening of 12/09/2020 with Charmaine OVIEDO. Discussed with nursing staff, reviewed the chart. The patient slept 7-3/4 hours previous night. The patient has been confused, wandering but redirectable, but otherwise pleasant. Review of Systems: No CV, , pulmonary, eye, ENT system symptoms on review. Mental Status Exam: The patient is oriented to himself. He was pleasant, verbal, interactive, quite confused during the individual visit. Abstraction is fair. Computation is impaired. Language function is intact. Attention span is short. Mood and affect withdrawn. No suicidal or homicidal ideation. Laboratory Data: Reviewed. Impression: Major neurocognitive disorder Alzheimer vascular with delusion, depression, behavioral disturbance. Anxiety disorder unspecified. Impulse control disorder unspecified. Plan: No change from initial note. Assessment: Vital Signs/I&O: Vital Signs Date Time Temp Pulse Resp B/P (MAP) Pulse Ox O2 Delivery O2 Flow Rate FiO2 12/10/20 17:57 65 114/71 12/10/20 15:26 97.5 20 97 Room Air I & O 12/09/20 12/09/20 12/10/20 15:00 23:00 07:00 Intake Total 600 ml 600 ml Balance 600 ml 600 ml Current Medications: Meds: Current Medications Medications (Trade) Dose Ordered Sig/Evaristo Route PRN Reason Start Time Stop Time Status Last Admin Dose Admin Acetaminophen (Tylenol) 650 mg PRN Q6HRS PRN PO MILD PAIN / TEMP > 100.3'F 11/25/20 18:00 Multi-Ingredient Ointment (Analgesic [facility]) 1 addison PRN QID PRN TP MUSCLE PAIN 11/25/20 18:00 Al Hydroxide/Mg Hydroxide (Mylanta Plus Xs) 15 ml PRN AFTMEALHC PRN PO DYSPEPSIA 11/25/20 18:00 12/10/20 18:52 Magnesium Hydroxide (Milk Of Magnesia) 2,400 mg PRN QHS PRN PO CONSTIPATION 11/25/20 18:00 Amlodipine Besylate (Norvasc) 10 mg DAILY PO 11/26/20 09:00 12/10/20 08:07 Aspirin (Aspirin Chewable) 81 mg DAILY PO 11/26/20 09:00 12/10/20 08:07 Carvedilol (Coreg) 6.25 mg BIDWMEALS PO 11/25/20 18:30 12/10/20 17:57 Lisinopril (Prinivil) 10 mg DAILY PO 11/26/20 09:00 11/26/20 16:16 DC Quetiapine Fumarate (SEROquel) 25 mg QHS PO 11/25/20 21:00 12/09/20 19:56 Tamsulosin HCl (Flomax) 0.4 mg DAILY PO 11/26/20 09:00 12/10/20 08:06 Amoxicillin (Amoxil) 500 mg [id number] PO 11/25/20 21:00 12/02/20 14:01 DC 12/02/20 14:15 Atorvastatin Calcium (Lipitor) 40 mg QHS PO 11/25/20 21:00 12/09/20 19:54 Folic Acid (Folic Acid) 1 mg DAILY PO 11/26/20 09:00 12/10/20 08:07 Lidocaine (Lidoderm) 1 patch DAILY TD 11/26/20 09:00 12/10/20 08:09 Multivitamins/ Calcium (Thera-M Plus) 1 tab DAILY PO 11/26/20 09:00 12/10/20 08:08 Thiamine HCl (Vitamin B-1) 100 mg BID PO 11/25/20 21:00 12/10/20 08:07 Olanzapine (ZyPREXA ZYDIS) 2.5 mg PRN Q2HR PRN PO PSYCHOSIS 11/25/20 21:15 12/05/20 23:07 Trazodone HCl (Desyrel) 50 mg PRN QHS PRN PO INSOMNIA, MAY REPEAT IN 1HR 11/25/20 21:15 12/09/20 23:48 Mirtazapine (Remeron) 7.5 mg QHS PO 11/26/20 21:00 11/28/20 12:23 DC 11/27/20 20:00 Lactobacillus Rhamnosus (Culturelle) 1 cap BID PO 11/27/20 09:00 12/10/20 08:08 Sertraline HCl (Zoloft) 25 mg DAILY PO 11/28/20 09:00 11/30/20 09:01 DC 11/30/20 08:39 Sertraline HCl (Zoloft) 50 mg DAILY PO 12/01/20 09:00 12/03/20 11:00 DC 12/03/20 08:05 Mirtazapine (Remeron) 15 mg QHS PO 11/28/20 21:00 11/29/20 18:47 DC 11/28/20 19:38 Hydroxyzine HCl (Atarax) 25 mg PRN Q2HR PRN PO ABDOMINAL CRAMPS 11/28/20 21:45 12/03/20 02:37 Lorazepam (Ativan) 0.5 mg PRN Q4HRS PRN PO ANXIETY / AGITATION 11/28/20 21:45 11/29/20 21:45 DC Amitriptyline HCl (Elavil) 25 mg QHS PO 11/29/20 21:00 12/09/20 19:55 Melatonin (Melatonin) 3 mg QHS PO 11/29/20 21:00 12/09/20 19:55 Sertraline HCl (Zoloft) 75 mg DAILY PO 12/04/20 09:00 12/10/20 08:07 Divalproex Sodium (Depakote Er) 500 mg QHS PO 12/02/20 21:00 12/05/20 12:29 DC 12/04/20 20:08 Divalproex Sodium (Depakote Er) 1,000 mg QHS PO 12/05/20 21:00 12/09/20 19:55 I have reviewed the current psychotropics carefully including drug interactions. Risk benefit ratio favors no change other than as noted in my dictated progress note. 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
[2020-12-10] MEDS: QUEtiapine 25 MG TABLET. PO SCH (21:43)
[2020-12-10] MEDS: DIVALPROEX ER 500 MG TAB.ER.24H PO SCH (21:43)
[2020-12-10] MEDS: AMITRIPTYLINE HCL 25 MG TABLET PO SCH (21:43)
[2020-12-10] MEDS: traZODone 50 MG TABLET. PO PRN (21:43)
[2020-12-10] MEDS: MELATONIN 3 MG TABLET PO SCH (21:44)
[2020-12-10] MEDS: ATORVASTATIN CALCIUM 20 MG TABLET PO SCH (21:44)
--- NOTE | 2020-12-11 06:34 | NUR ---
Pt was pleasant, talkative and compliant at [facility] [employer]. He wanders and is exit seeking. 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 Zydis given for agitation and exit seeking behavior-knocking on the door repeatedly, yelling he needs to get out, denying he is at the hospital and the nurses need to stop their bull, and threatening to break the glass. Pt fights pants changes; with encouragement he is eventually compliant. Pt sitting in secure hallway, pacing, bargaining to leave. Will continue to monitor.
[2020-12-11] MEDS: amLODIPine BESYLATE 10 MG TABLET PO SCH (07:54)
[2020-12-11] MEDS: LACTOBACILLUS RHAMNOSUS GG 1 CAPSULE. PO SCH ×2 (07:54→19:31)
[2020-12-11] MEDS: TAMSULOSIN 0.4 MG CAP.ER.24H. PO SCH (07:54)
[2020-12-11] MEDS: MULTIVITAMIN with MINERAL TABLET. PO SCH (07:54)
[2020-12-11] MEDS: THIAMINE 100 MG TABLET. PO SCH ×2 (07:55→19:32)
[2020-12-11] MEDS: SERTRALINE 25 MG TABLET. PO SCH (07:55)
[2020-12-11] MEDS: CARVEDILOL 6.25 MG TABLET PO SCH ×2 (07:55→17:42)
[2020-12-11] MEDS: FOLIC ACID 1 MG TABLET PO SCH (07:55)
[2020-12-11] MEDS: LIDOCAINE (700MG/PATCH) PATCH. TD SCH (07:55)
[2020-12-11] MEDS: ASPIRIN CHEWABLE 81 MG TABLET. PO SCH (07:55)
--- NOTE | 2020-12-11 13:10 | PN ---
DATE: 12/11/2020 SUBJECTIVE: The patient was seen today, met with the staff, chart reviewed. Staff reports some improvement with her behavior. She was compliant with assessments and medications. Also, at times irritable, goode and agitated easily in the morning, continues to be delusional, thinking that he is working at here, lacking insight. OBSERVATION: VITAL SIGNS: The patient refused vital signs. GENERAL: The patient slept about 5 hours last night. CURRENT MEDICATIONS: Reviewed. Currently on Depakote 1000 mg at night, Zoloft 75 mg daily, amitriptyline 25 mg at night, trazodone 50 mg at night p.r.n. He is also on olanzapine 2.5 mg q. 2 hours p.r.n. LABORATORY DATA: The patient's lab reviewed. The patient is not having any side effects to medications. ASSESSMENT: 1. Major neurocognitive disorder, Alzheimer's, vascular with delusions, depression, and behavioral disturbances. 2. Anxiety disorder, unspecified. PLAN: To continue with the treatment. LENGTH OF STAY: 5 days. JACKIE DAILEY MD DR: CHRISTOPH/roxy JOB#: [id number] / [id number]
[2020-12-11 16:06] VITALS: BP 121/82
--- NOTE | 2020-12-11 18:31 | NUR ---
Pt has been restless and intrusive most of day. Has been irritable at times but redirectable. PRN's utilized with some relief.Has been compliant with meds and cares.
[2020-12-11] MEDS: MELATONIN 3 MG TABLET PO SCH (19:31)
[2020-12-11] MEDS: traZODone 50 MG TABLET. PO PRN (19:31)
[2020-12-11] MEDS: AMITRIPTYLINE HCL 25 MG TABLET PO SCH (19:31)
[2020-12-11] MEDS: DIVALPROEX ER 500 MG TAB.ER.24H PO SCH (19:32)
[2020-12-11] MEDS: ATORVASTATIN CALCIUM 20 MG TABLET PO SCH (19:32)
[2020-12-11] MEDS: QUEtiapine 25 MG TABLET. PO SCH (19:32)
--- NOTE | 2020-12-11 22:47 | NUR ---
Nursing Note: Pt withdrawn to his room, lying in bed at shift change. Pt calm, pleasantly confused, and disorganized. Pt cooperative with assessment and compliant with medications administered whole.
[2020-12-12 06:04] VITALS: BP 136/83
[2020-12-12] MEDS: FOLIC ACID 1 MG TABLET PO SCH (08:22)
[2020-12-12] MEDS: LACTOBACILLUS RHAMNOSUS GG 1 CAPSULE. PO SCH ×2 (08:22→19:58)
[2020-12-12] MEDS: MULTIVITAMIN with MINERAL TABLET. PO SCH (08:22)
[2020-12-12] MEDS: ASPIRIN CHEWABLE 81 MG TABLET. PO SCH (08:23)
[2020-12-12] MEDS: amLODIPine BESYLATE 10 MG TABLET PO SCH (08:23)
[2020-12-12] MEDS: SERTRALINE 25 MG TABLET. PO SCH (08:23)
[2020-12-12] MEDS: THIAMINE 100 MG TABLET. PO SCH ×2 (08:23→19:58)
[2020-12-12] MEDS: TAMSULOSIN 0.4 MG CAP.ER.24H. PO SCH (08:23)
[2020-12-12] MEDS: CARVEDILOL 6.25 MG TABLET PO SCH ×2 (08:24→16:49)
[2020-12-12] MEDS: LIDOCAINE (700MG/PATCH) PATCH. TD SCH (08:25)
--- NOTE | 2020-12-12 13:08 | NUR ---
PATIENT IS AWAKE IN A ROOM, CALM AND COOPERATIVE UPON ASSESSMENT, COMPLIANT WITH MEDICATIONS, MEDS ADMINISTERED WHOLE . PATIENT APPEAR TO BE IN A GOOD SPIRIT. NO BEHAVIOR NOTED AT THIS TIME, WILL CTM.
[2020-12-12 16:29] VITALS: BP 126/81
--- NOTE | 2020-12-12 16:57 | NUR ---
WEEKLY ACTIVITY THERAPY NOTE Date of Admission: 11/25/2020 Date of AT Assessment: 11/28/2020 Precipitating behaviors that initiated intake and admission: Patient was reported to be confused, agitated, delusional, hallucinating, removing IVs, and not cooperating with cares at [facility]. Goal aimed: to increase engagement and socialization Initial Goal: Pt. will participate in at least one Activity Therapy group per day. Weekly progress towards goal: did not achieved Group participation level: 4 min, 1 mod, 1 full Weekly highlights: balloon bop on Saturday Behaviors observed: tends to sleep in in the mornings- more engaged in afternoon groups this week, pleasantly confused, easy to redirect, calm and social with peers and staff, repeats self occasionally Plan: no change to goal Beneficial adaptations: encouragement, getting Pt to group (he will engage well when he gets there)
--- NOTE | 2020-12-12 18:08 | TX PLAN ---
Interdisciplinary Tx Plan Admission Information Nov 25, 2020 at 15:25 Legal Status (on Admission): Voluntary, Court Appointed Guardian, Court Appointed Conservat DPOA/Guardian Name: Maxwell Martinez- guardian Contact Verified Code Status: Full Code Allergies: Coded Allergies: No Known Drug Allergies (Unverified , 11/25/20) Estimated Length of Stay: 14 Diagnoses Primary Diagnosis: Major neurocognitive d/o, vascular, alzheimers with delusions, depresion, BD; Anxiety d/o unspecified; impulse control d/o Reasons for Admission: Aggressive, Delusions, Agitated, Alcohol Abuse, Sig. Change Sleep, Anxiety/Panic, Hallucinations, Combative, Confusion/Disoriented, Poor impulse control Problem in Patient's Words: Per Scottie, " Love and caring about her and my family." Per guardian, unsafe to live at home alone with level of confusion and memory impairment. Additional Admission Comments: Per intake record, hallucinating, delusional, aggressive during ro[facility] care, confused, restless, nonsensical speech, anxious, insomnia, poor safety, pulled out IV, uncooperative, agitated, and yelling out. Problems Active Problems: Confused Delsuional Hallucinating Wandering, intrusive, restless Poor sleep Inactive Problems: Adequate meal intake Compliant with meds Pt Strengths/Limitations Ability for Towns: Poor Cognitive Functioning/Ability: Poor Communication Skills/Ability: Fair Financial Resources: Fair Insight/Judgement: Poor Intellectual Ability: Fair Physical Health: Fair Social Skills: Fair Stability in Family: Poor Verbal Skills: Fair Discharge Criteria Discharge Criteria: Adequate arrangements @DC, Improved behavior, Improved mood/thought Preliminary Discharge Plan Preliminary DC Plan: Placement Needed Special Precautions Special Precautions: Agitation/Assault Fall Risk: High Initial D/C Plan Scottie will need placement. [facility] is in the process of determining if a medicaid applincation will need to be filed to pay for assisted care. Identified Discharge Needs: Scottie will need placement due to memory impairment. Currently Utilized Resources Currently Utilized Resources/P: PCP Referrals Community Resources: Placement referral PCP Psychiatry if available Identified Problems/Hx/Goals Objectives/Short-Term Goals Short Term Goals: Control abnormal behavior, Dec. Aggression, Dec. Anxiety/Panic, Dec. Hallucination/Delus, Dec. Outbursts, Medication Stabilization, Monitor Med Effects Short Term Goals in Patient's: Melvin Rubin, "I hope to conquer even better and us get along." Interventions/Frequency Staff Interventions/Frequency&: Nursing to provide routine safety checks, medication administration, and adl support. Psychiatry thre times weekly. SW visits twice weekly. Recreational and SW groups as Scottie will participate. 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 Social: Scottie enjoys basketball, swimming, and country music. Education: Scottie reported graduating high school. Community Follow-up PCP Psychiatry if available Placement referral Community Provider/Family Inpu: Treatment team meeting was held on 11/28/20. entry level automotive technician of treatment plan was enterred on 11/29/20. felix Arreola, declined to be involed in team meetings but does want to know any recommendations concerning Scottie. Treatment Plan Explained Patient/Wardrobe Technician had this treatment plan explained to him/her as indicated by the signature below and has been given the opportunity to ask questions and make suggestions: Date: Patient/Wardrobe Technician Signature: Status Update Update Pt is eating 100% of meals and sleeping on average 6 hours a night. Pt is pleasantly confused but easier to be redirected. Pt continues to wander the unit and has a few attempts to door check throughout the day. It is recommended that pt be placed on a locked Memory Care unit. Pt guardian continues to work on pt placement and can discharge once placement can be found. BA MUÑIZ Dec 12, 2020 18:08
[2020-12-12] MEDS: ATORVASTATIN CALCIUM 20 MG TABLET PO SCH (19:58)
[2020-12-12] MEDS: QUEtiapine 25 MG TABLET. PO SCH (19:58)
[2020-12-12] MEDS: MELATONIN 3 MG TABLET PO SCH (19:58)
[2020-12-12] MEDS: AMITRIPTYLINE HCL 25 MG TABLET PO SCH (19:58)
[2020-12-12] MEDS: DIVALPROEX ER 500 MG TAB.ER.24H PO SCH (19:59)
--- NOTE | 2020-12-12 21:04 | PDOC ---
Exam Note: Gus Note: Please also refer to the separate dictated note~for this date of service dictated separately.~Patient seen individually. Discussed the patient with Nursing staff reviewed the chart.~Reviewed interim history and current functioning. Reviewed vital signs,~Labs/ Radiology~and current medications noted below. Continue current treatment with the changes noted in the dictated addendum note Assessment: Vital Signs/I&O: Vital Signs Date Time Temp Pulse Resp B/P (MAP) Pulse Ox O2 Delivery O2 Flow Rate FiO2 12/12/20 16:49 95 126/81 12/12/20 16:29 97.3 19 97 12/10/20 15:26 Room Air I & O 12/11/20 12/11/20 12/12/20 15:00 23:00 07:00 Intake Total 360 ml 480 ml Balance 360 ml 480 ml Current Medications: I have reviewed the current psychotropics carefully including drug interactions. Risk benefit ratio favors no change other than as noted in my dictated progress note. Diagnosis: Problems: (1) Major neurocognitive disorder (2) Impulse control disorder, unspecified (3) Anxiety disorder, unspecified (4) Dementia, vascular, with depression (5) Dementia, vascular, with delusions (6) Dementia in Alzheimer's disease with depression (7) Dementia in Alzheimer's disease with delusions (8) Dementia of the Alzheimer's type with early onset with behavioral disturbance DONA BOTELLO MD Dec 12, 2020 21:04
[2020-12-13] MEDS: traZODone 50 MG TABLET. PO PRN ×2 (00:40→19:53)
[2020-12-13 05:48] VITALS: BP 157/90
[2020-12-13] MEDS: SERTRALINE 25 MG TABLET. PO SCH (08:26)
[2020-12-13] MEDS: LACTOBACILLUS RHAMNOSUS GG 1 CAPSULE. PO SCH ×2 (08:26→19:53)
[2020-12-13] MEDS: ASPIRIN CHEWABLE 81 MG TABLET. PO SCH (08:26)
[2020-12-13] MEDS: MULTIVITAMIN with MINERAL TABLET. PO SCH (08:26)
[2020-12-13] MEDS: TAMSULOSIN 0.4 MG CAP.ER.24H. PO SCH (08:27)
[2020-12-13] MEDS: THIAMINE 100 MG TABLET. PO SCH ×2 (08:27→19:53)
[2020-12-13] MEDS: amLODIPine BESYLATE 10 MG TABLET PO SCH (08:27)
[2020-12-13] MEDS: CARVEDILOL 6.25 MG TABLET PO SCH ×2 (08:27→17:13)
[2020-12-13] MEDS: FOLIC ACID 1 MG TABLET PO SCH (08:28)
[2020-12-13] MEDS: LIDOCAINE (700MG/PATCH) PATCH. TD SCH ×2 (08:28→08:50)
--- NOTE | 2020-12-13 09:06 | PDOC ---
Exam Note: Gus Note: This note is a late entry for 12/12/2020 covers elements not covered in my initial note. Subjective: The patient was reviewed on telehealth rounds in the morning of 12/12/2020 for a treatment team meeting with Dolores Contreras, Mell Larios and Denise (rn social services), Mikayla Fiore, activity therapy and Morena OVIEDO. Discussed with nursing staff, reviewed the chart. The patient slept 5-3/4 hours previous night. The patient remains confused, but less agitated. He is still looking for exit. Review of Systems: No CV, , pulmonary, eye, ENT system symptoms on review. Mental Status Exam: The patient is oriented to himself. He was pleasant, verbal, interactive, quite confused during the individual visit. Abstraction is fair. Computation is impaired. Language function is intact. Attention span is short. Mood and affect withdrawn. No suicidal or homicidal ideation. Laboratory Data: Reviewed. Impression: Major neurocognitive disorder Alzheimer vascular with delusion, depression, behavioral disturbance. Anxiety disorder unspecified. Impulse control disorder unspecified. Plan: No change from initial note. Assessment: Vital Signs/I&O: Vital Signs Date Time Temp Pulse Resp B/P (MAP) Pulse Ox O2 Delivery O2 Flow Rate FiO2 12/13/20 08:27 84 157/90 12/13/20 05:48 97.2 20 98 12/10/20 15:26 Room Air I & O 12/12/20 12/12/20 12/13/20 14:59 22:59 06:59 Intake Total 960 ml 360 ml Balance 960 ml 360 ml Current Medications: Meds: Current Medications Medications (Trade) Dose Ordered Sig/Evaristo Route PRN Reason Start Time Stop Time Status Last Admin Dose Admin Acetaminophen (Tylenol) 650 mg PRN Q6HRS PRN PO MILD PAIN / TEMP > 100.3'F 11/25/20 18:00 Multi-Ingredient Ointment (Analgesic [place]) 1 addison PRN QID PRN TP MUSCLE PAIN 11/25/20 18:00 Al Hydroxide/Mg Hydroxide (Mylanta Plus Xs) 15 ml PRN AFTMEALHC PRN PO DYSPEPSIA 11/25/20 18:00 12/10/20 18:52 Magnesium Hydroxide (Milk Of Magnesia) 2,400 mg PRN QHS PRN PO CONSTIPATION 11/25/20 18:00 12/13/20 08:36 Amlodipine Besylate (Norvasc) 10 mg DAILY PO 11/26/20 09:00 12/13/20 08:27 Aspirin (Aspirin Chewable) 81 mg DAILY PO 11/26/20 09:00 12/13/20 08:26 Carvedilol (Coreg) 6.25 mg BIDWMEALS PO 11/25/20 18:30 12/13/20 08:27 Lisinopril (Prinivil) 10 mg DAILY PO 11/26/20 09:00 11/26/20 16:16 DC Quetiapine Fumarate (SEROquel) 25 mg QHS PO 11/25/20 21:00 12/12/20 19:58 Tamsulosin HCl (Flomax) 0.4 mg DAILY PO 11/26/20 09:00 12/13/20 08:27 Amoxicillin (Amoxil) 500 mg [id number] PO 11/25/20 21:00 12/02/20 14:01 DC 12/02/20 14:15 Atorvastatin Calcium (Lipitor) 40 mg QHS PO 11/25/20 21:00 12/12/20 19:58 Folic Acid (Folic Acid) 1 mg DAILY PO 11/26/20 09:00 12/13/20 08:28 Lidocaine (Lidoderm) 1 patch DAILY TD 11/26/20 09:00 12/12/20 08:25 Multivitamins/ Calcium (Thera-M Plus) 1 tab DAILY PO 11/26/20 09:00 12/13/20 08:26 Thiamine HCl (Vitamin B-1) 100 mg BID PO 11/25/20 21:00 12/13/20 08:27 Olanzapine (ZyPREXA ZYDIS) 2.5 mg PRN Q2HR PRN PO PSYCHOSIS 11/25/20 21:15 12/11/20 17:42 Trazodone HCl (Desyrel) 50 mg PRN QHS PRN PO INSOMNIA, MAY REPEAT IN 1HR 11/25/20 21:15 12/13/20 00:40 Mirtazapine (Remeron) 7.5 mg QHS PO 11/26/20 21:00 11/28/20 12:23 DC 11/27/20 20:00 Lactobacillus Rhamnosus (Culturelle) 1 cap BID PO 11/27/20 09:00 12/13/20 08:26 Sertraline HCl (Zoloft) 25 mg DAILY PO 11/28/20 09:00 11/30/20 09:01 DC 11/30/20 08:39 Sertraline HCl (Zoloft) 50 mg DAILY PO 12/01/20 09:00 12/03/20 11:00 DC 12/03/20 08:05 Mirtazapine (Remeron) 15 mg QHS PO 11/28/20 21:00 11/29/20 18:47 DC 11/28/20 19:38 Hydroxyzine HCl (Atarax) 25 mg PRN Q2HR PRN PO ABDOMINAL CRAMPS 11/28/20 21:45 12/03/20 02:37 Lorazepam (Ativan) 0.5 mg PRN Q4HRS PRN PO ANXIETY / AGITATION 11/28/20 21:45 11/29/20 21:45 DC Amitriptyline HCl (Elavil) 25 mg QHS PO 11/29/20 21:00 12/12/20 19:58 Melatonin (Melatonin) 3 mg QHS PO 11/29/20 21:00 12/12/20 19:58 Sertraline HCl (Zoloft) 75 mg DAILY PO 12/04/20 09:00 12/13/20 08:26 Divalproex Sodium (Depakote Er) 500 mg QHS PO 12/02/20 21:00 12/05/20 12:29 DC 12/04/20 20:08 Divalproex Sodium (Depakote Er) 1,000 mg QHS PO 12/05/20 21:00 12/12/20 19:59 I have reviewed the current psychotropics carefully including drug interactions. Risk benefit ratio favors no change other than as noted in my dictated progress note. Diagnosis: Problems: (1) Major neurocognitive disorder (2) Impulse control disorder, unspecified (3) Anxiety disorder, unspecified (4) Dementia, vascular, with depression (5) Dementia, vascular, with delusions (6) Dementia in Alzheimer's disease with depression (7) Dementia in Alzheimer's disease with delusions (8) Dementia of the Alzheimer's type with early onset with behavioral disturbance DONA BOTELLO MD Dec 13, 2020 09:06
[2020-12-13 16:08] VITALS: BP 137/79
[2020-12-13] MEDS: MELATONIN 3 MG TABLET PO SCH (19:53)
[2020-12-13] MEDS: ATORVASTATIN CALCIUM 20 MG TABLET PO SCH (19:53)
[2020-12-13] MEDS: AMITRIPTYLINE HCL 25 MG TABLET PO SCH (19:53)
[2020-12-13] MEDS: DIVALPROEX ER 500 MG TAB.ER.24H PO SCH (19:53)
[2020-12-13] MEDS: QUEtiapine 25 MG TABLET. PO SCH (19:53)
--- NOTE | 2020-12-13 21:05 | PDOC ---
Exam Note: Gus Note: Please also refer to the separate dictated note~for this date of service dictated separately.~Patient seen individually. Discussed the patient with Nursing staff reviewed the chart.~Reviewed interim history and current functioning. Reviewed vital signs,~Labs/ Radiology~and current medications noted below. Continue current treatment with the changes noted in the dictated addendum note Assessment: Vital Signs/I&O: Vital Signs Date Time Temp Pulse Resp B/P (MAP) Pulse Ox O2 Delivery O2 Flow Rate FiO2 12/13/20 17:13 86 137/79 12/13/20 16:08 97.6 18 98 12/10/20 15:26 Room Air I & O 12/12/20 12/12/20 12/13/20 15:00 23:00 07:00 Intake Total 960 ml 360 ml Balance 960 ml 360 ml Current Medications: Meds: Current Medications Medications (Trade) Dose Ordered Sig/Evaristo Route PRN Reason Start Time Stop Time Status Last Admin Dose Admin Acetaminophen (Tylenol) 650 mg PRN Q6HRS PRN PO MILD PAIN / TEMP > 100.3'F 11/25/20 18:00 Multi-Ingredient Ointment (Analgesic [place]) 1 addison PRN QID PRN TP MUSCLE PAIN 11/25/20 18:00 Al Hydroxide/Mg Hydroxide (Mylanta Plus Xs) 15 ml PRN AFTMEALHC PRN PO DYSPEPSIA 11/25/20 18:00 12/10/20 18:52 Magnesium Hydroxide (Milk Of Magnesia) 2,400 mg PRN QHS PRN PO CONSTIPATION 11/25/20 18:00 12/13/20 08:36 Amlodipine Besylate (Norvasc) 10 mg DAILY PO 11/26/20 09:00 12/13/20 08:27 Aspirin (Aspirin Chewable) 81 mg DAILY PO 11/26/20 09:00 12/13/20 08:26 Carvedilol (Coreg) 6.25 mg BIDWMEALS PO 11/25/20 18:30 12/13/20 17:13 Lisinopril (Prinivil) 10 mg DAILY PO 11/26/20 09:00 11/26/20 16:16 DC Quetiapine Fumarate (SEROquel) 25 mg QHS PO 11/25/20 21:00 12/13/20 19:53 Tamsulosin HCl (Flomax) 0.4 mg DAILY PO 11/26/20 09:00 12/13/20 08:27 Amoxicillin (Amoxil) 500 mg [id number] PO 11/25/20 21:00 12/02/20 14:01 DC 12/02/20 14:15 Atorvastatin Calcium (Lipitor) 40 mg QHS PO 11/25/20 21:00 12/13/20 19:53 Folic Acid (Folic Acid) 1 mg DAILY PO 11/26/20 09:00 12/13/20 08:28 Lidocaine (Lidoderm) 1 patch DAILY TD 11/26/20 09:00 12/12/20 08:25 Multivitamins/ Calcium (Thera-M Plus) 1 tab DAILY PO 11/26/20 09:00 12/13/20 08:26 Thiamine HCl (Vitamin B-1) 100 mg BID PO 11/25/20 21:00 12/13/20 19:53 Olanzapine (ZyPREXA ZYDIS) 2.5 mg PRN Q2HR PRN PO PSYCHOSIS 11/25/20 21:15 12/13/20 16:16 Trazodone HCl (Desyrel) 50 mg PRN QHS PRN PO INSOMNIA, MAY REPEAT IN 1HR 11/25/20 21:15 12/13/20 19:53 Mirtazapine (Remeron) 7.5 mg QHS PO 11/26/20 21:00 11/28/20 12:23 DC 11/27/20 20:00 Lactobacillus Rhamnosus (Culturelle) 1 cap BID PO 11/27/20 09:00 12/13/20 19:53 Sertraline HCl (Zoloft) 25 mg DAILY PO 11/28/20 09:00 11/30/20 09:01 DC 11/30/20 08:39 Sertraline HCl (Zoloft) 50 mg DAILY PO 12/01/20 09:00 12/03/20 11:00 DC 12/03/20 08:05 Mirtazapine (Remeron) 15 mg QHS PO 11/28/20 21:00 11/29/20 18:47 DC 11/28/20 19:38 Hydroxyzine HCl (Atarax) 25 mg PRN Q2HR PRN PO ABDOMINAL CRAMPS 11/28/20 21:45 12/03/20 02:37 Lorazepam (Ativan) 0.5 mg PRN Q4HRS PRN PO ANXIETY / AGITATION 11/28/20 21:45 11/29/20 21:45 DC Amitriptyline HCl (Elavil) 25 mg QHS PO 11/29/20 21:00 12/13/20 19:53 Melatonin (Melatonin) 3 mg QHS PO 11/29/20 21:00 12/13/20 19:53 Sertraline HCl (Zoloft) 75 mg DAILY PO 12/04/20 09:00 12/13/20 08:26 Divalproex Sodium (Depakote Er) 500 mg QHS PO 12/02/20 21:00 12/05/20 12:29 DC 12/04/20 20:08 Divalproex Sodium (Depakote Er) 1,000 mg QHS PO 12/05/20 21:00 12/13/20 19:53 I have reviewed the current psychotropics carefully including drug interactions. Risk benefit ratio favors no change other than as noted in my dictated progress note. Diagnosis: Problems: (1) Major neurocognitive disorder (2) Impulse control disorder, unspecified (3) Anxiety disorder, unspecified (4) Dementia, vascular, with depression (5) Dementia, vascular, with delusions (6) Dementia in Alzheimer's disease with depression (7) Dementia in Alzheimer's disease with delusions (8) Dementia of the Alzheimer's type with early onset with behavioral disturbance DONA BOTELLO MD Dec 13, 2020 21:05
--- NOTE | 2020-12-14 02:25 | NUR ---
Nursing Note: Pt sitting quietly in the hallway at shift change. Pt calm, pleasantly confused, and interactive. Pt cooperative with assessment and compliant with medications administered whole.
--- NOTE | 2020-12-14 06:11 | NUR ---
Nursing Note: Pt restless, confused, disorganized, and exit seeking. Pt perseverating on shaving. Staff has attempted to re-direct multiple times without success. PRN Zydis administered as ordered.
[2020-12-14 06:35] VITALS: BP 158/92
[2020-12-14] MEDS: CARVEDILOL 6.25 MG TABLET PO SCH ×2 (08:43→16:30)
[2020-12-14] MEDS: LIDOCAINE (700MG/PATCH) PATCH. TD SCH (08:43)
[2020-12-14] MEDS: THIAMINE 100 MG TABLET. PO SCH ×2 (08:44→20:23)
[2020-12-14] MEDS: TAMSULOSIN 0.4 MG CAP.ER.24H. PO SCH (08:44)
[2020-12-14] MEDS: amLODIPine BESYLATE 10 MG TABLET PO SCH (08:44)
[2020-12-14] MEDS: LACTOBACILLUS RHAMNOSUS GG 1 CAPSULE. PO SCH ×2 (08:44→20:23)
[2020-12-14] MEDS: MULTIVITAMIN with MINERAL TABLET. PO SCH (08:44)
[2020-12-14] MEDS: SERTRALINE 25 MG TABLET. PO SCH (08:44)
[2020-12-14] MEDS: ASPIRIN CHEWABLE 81 MG TABLET. PO SCH (08:44)
[2020-12-14] MEDS: FOLIC ACID 1 MG TABLET PO SCH (08:45)
--- NOTE | 2020-12-14 11:12 | NUR ---
PATIENT IS AWAKE SITTING IN A ROOM UPON ASSESSMENT, CALM AND COOPERATIVE, PLEASANT AND POLITE TO THIS RN, COMPLIANT WITH MEDICATIONS, DENIED PAIN, STATED HE DID NOT SLEEP WELL LAST NIGHT SO HE WILL PLAN TO TAKE A NAP LATER TODAY.
--- NOTE | 2020-12-14 12:57 | NUR ---
PATIENT BECAME RESTLESS IN THE AFTERNOON, CHECKING DOORS, GOING INTO OTHER PATIENTS ROOMS, LOOKING FOR TRASH CAN, HE BELIEVES HE FORGOT SOMEWHERE, UNABLE TO REDIRECT. ZNEOIS PRN GIVEN ORDERED.
[2020-12-14 15:18] VITALS: BP 109/70
[2020-12-14] MEDS: QUEtiapine 25 MG TABLET. PO SCH (20:23)
[2020-12-14] MEDS: DIVALPROEX ER 500 MG TAB.ER.24H PO SCH (20:23)
[2020-12-14] MEDS: AMITRIPTYLINE HCL 25 MG TABLET PO SCH (20:23)
[2020-12-14] MEDS: MELATONIN 3 MG TABLET PO SCH (20:23)
[2020-12-14] MEDS: ATORVASTATIN CALCIUM 20 MG TABLET PO SCH (20:23)
--- NOTE | 2020-12-14 21:00 | PDOC ---
Exam Note: Gus Note: This note is a late entry for 12/13/2020 covers elements not covered in my initial note. Subjective: The patient was reviewed on telehealth rounds in the evening of 12/13/2020. Discussed with nursing staff, reviewed the chart. The patient slept 5-3/4 hours previous night. The patient remains confused, but pleasant. He remains exit seeking but redirectable. Review of Systems: No CV, , pulmonary, eye, ENT system symptoms on review. Mental Status Exam: The patient is oriented to himself. He was pleasant, verbal, interactive, able to talk to me about Cristo his previous caregiver when I brought this up with him and his response at one point was rather surprising do you want her. He seemed to have some recollection that she is no longer with him but unclear whether he knows that she has . Abstraction is fair. Computation is impaired. Language function is intact. Attention span is short. Mood and affect withdrawn. No suicidal or homicidal ideation. Laboratory Data: Reviewed. Impression: Major neurocognitive disorder Alzheimer vascular with delusion, depression, behavioral disturbance. Anxiety disorder unspecified. Impulse control disorder unspecified. Plan: No change from initial note. Assessment: Vital Signs/I&O: Vital Signs Date Time Temp Pulse Resp B/P (MAP) Pulse Ox O2 Delivery O2 Flow Rate FiO2 12/14/20 16:30 84 109/70 12/14/20 15:18 97.4 17 97 12/14/20 06:35 Room Air I & O 12/13/20 12/13/20 12/14/20 15:00 23:00 07:00 Intake Total 460 ml 480 ml Balance 460 ml 480 ml Current Medications: Meds: Current Medications Medications (Trade) Dose Ordered Sig/Evaristo Route PRN Reason Start Time Stop Time Status Last Admin Dose Admin Acetaminophen (Tylenol) 650 mg PRN Q6HRS PRN PO MILD PAIN / TEMP > 100.3'F 11/25/20 18:00 Multi-Ingredient Ointment (Analgesic [place]) 1 addison PRN QID PRN TP MUSCLE PAIN 11/25/20 18:00 Al Hydroxide/Mg Hydroxide (Mylanta Plus Xs) 15 ml PRN AFTMEALHC PRN PO DYSPEPSIA 11/25/20 18:00 12/10/20 18:52 Magnesium Hydroxide (Milk Of Magnesia) 2,400 mg PRN QHS PRN PO CONSTIPATION 11/25/20 18:00 12/13/20 08:36 Amlodipine Besylate (Norvasc) 10 mg DAILY PO 11/26/20 09:00 12/14/20 08:44 Aspirin (Aspirin Chewable) 81 mg DAILY PO 11/26/20 09:00 12/14/20 08:44 Carvedilol (Coreg) 6.25 mg BIDWMEALS PO 11/25/20 18:30 12/14/20 16:30 Lisinopril (Prinivil) 10 mg DAILY PO 11/26/20 09:00 11/26/20 16:16 DC Quetiapine Fumarate (SEROquel) 25 mg QHS PO 11/25/20 21:00 12/14/20 20:23 Tamsulosin HCl (Flomax) 0.4 mg DAILY PO 11/26/20 09:00 12/14/20 08:44 Amoxicillin (Amoxil) 500 mg [id number] PO 11/25/20 21:00 12/02/20 14:01 DC 12/02/20 14:15 Atorvastatin Calcium (Lipitor) 40 mg QHS PO 11/25/20 21:00 12/14/20 20:23 Folic Acid (Folic Acid) 1 mg DAILY PO 11/26/20 09:00 12/14/20 08:45 Lidocaine (Lidoderm) 1 patch DAILY TD 11/26/20 09:00 12/14/20 08:43 Multivitamins/ Calcium (Thera-M Plus) 1 tab DAILY PO 11/26/20 09:00 12/14/20 08:44 Thiamine HCl (Vitamin B-1) 100 mg BID PO 11/25/20 21:00 12/14/20 20:23 Olanzapine (ZyPREXA ZYDIS) 2.5 mg PRN Q2HR PRN PO PSYCHOSIS 11/25/20 21:15 12/14/20 16:29 Trazodone HCl (Desyrel) 50 mg PRN QHS PRN PO INSOMNIA, MAY REPEAT IN 1HR 11/25/20 21:15 12/13/20 19:53 Mirtazapine (Remeron) 7.5 mg QHS PO 11/26/20 21:00 11/28/20 12:23 DC 11/27/20 20:00 Lactobacillus Rhamnosus (Culturelle) 1 cap BID PO 11/27/20 09:00 12/14/20 20:23 Sertraline HCl (Zoloft) 25 mg DAILY PO 11/28/20 09:00 11/30/20 09:01 DC 11/30/20 08:39 Sertraline HCl (Zoloft) 50 mg DAILY PO 12/01/20 09:00 12/03/20 11:00 DC 12/03/20 08:05 Mirtazapine (Remeron) 15 mg QHS PO 11/28/20 21:00 11/29/20 18:47 DC 11/28/20 19:38 Hydroxyzine HCl (Atarax) 25 mg PRN Q2HR PRN PO ABDOMINAL CRAMPS 11/28/20 21:45 12/03/20 02:37 Lorazepam (Ativan) 0.5 mg PRN Q4HRS PRN PO ANXIETY / AGITATION 11/28/20 21:45 11/29/20 21:45 DC Amitriptyline HCl (Elavil) 25 mg QHS PO 11/29/20 21:00 12/14/20 20:23 Melatonin (Melatonin) 3 mg QHS PO 11/29/20 21:00 12/14/20 20:23 Sertraline HCl (Zoloft) 75 mg DAILY PO 12/04/20 09:00 12/14/20 08:44 Divalproex Sodium (Depakote Er) 500 mg QHS PO 12/02/20 21:00 12/05/20 12:29 DC 12/04/20 20:08 Divalproex Sodium (Depakote Er) 1,000 mg QHS PO 12/05/20 21:00 12/14/20 20:23 I have reviewed the current psychotropics carefully including drug interactions. Risk benefit ratio favors no change other than as noted in my dictated progress note. Diagnosis: Problems: (1) Major neurocognitive disorder (2) Impulse control disorder, unspecified (3) Anxiety disorder, unspecified (4) Dementia, vascular, with depression (5) Dementia, vascular, with delusions (6) Dementia in Alzheimer's disease with depression (7) Dementia in Alzheimer's disease with delusions (8) Dementia of the Alzheimer's type with early onset with behavioral disturbance DONA BOTELLO MD Dec 14, 2020 21:00
--- NOTE | 2020-12-14 21:00 | PDOC ---
Exam Note: Gus Note: Please also refer to the separate dictated note~for this date of service dictated separately.~Patient seen individually. Discussed the patient with Nursing staff reviewed the chart.~Reviewed interim history and current functioning. Reviewed vital signs,~Labs/ Radiology~and current medications noted below. Continue current treatment with the changes noted in the dictated addendum note Assessment: Vital Signs/I&O: Vital Signs Date Time Temp Pulse Resp B/P (MAP) Pulse Ox O2 Delivery O2 Flow Rate FiO2 12/14/20 16:30 84 109/70 12/14/20 15:18 97.4 17 97 12/14/20 06:35 Room Air I & O 12/13/20 12/13/20 12/14/20 15:00 23:00 07:00 Intake Total 460 ml 480 ml Balance 460 ml 480 ml Current Medications: Meds: Current Medications Medications (Trade) Dose Ordered Sig/Evaristo Route PRN Reason Start Time Stop Time Status Last Admin Dose Admin Acetaminophen (Tylenol) 650 mg PRN Q6HRS PRN PO MILD PAIN / TEMP > 100.3'F 11/25/20 18:00 Multi-Ingredient Ointment (Analgesic [place]) 1 addison PRN QID PRN TP MUSCLE PAIN 11/25/20 18:00 Al Hydroxide/Mg Hydroxide (Mylanta Plus Xs) 15 ml PRN AFTMEALHC PRN PO DYSPEPSIA 11/25/20 18:00 12/10/20 18:52 Magnesium Hydroxide (Milk Of Magnesia) 2,400 mg PRN QHS PRN PO CONSTIPATION 11/25/20 18:00 12/13/20 08:36 Amlodipine Besylate (Norvasc) 10 mg DAILY PO 11/26/20 09:00 12/14/20 08:44 Aspirin (Aspirin Chewable) 81 mg DAILY PO 11/26/20 09:00 12/14/20 08:44 Carvedilol (Coreg) 6.25 mg BIDWMEALS PO 11/25/20 18:30 12/14/20 16:30 Lisinopril (Prinivil) 10 mg DAILY PO 11/26/20 09:00 11/26/20 16:16 DC Quetiapine Fumarate (SEROquel) 25 mg QHS PO 11/25/20 21:00 12/14/20 20:23 Tamsulosin HCl (Flomax) 0.4 mg DAILY PO 11/26/20 09:00 12/14/20 08:44 Amoxicillin (Amoxil) 500 mg [id number] PO 11/25/20 21:00 12/02/20 14:01 DC 12/02/20 14:15 Atorvastatin Calcium (Lipitor) 40 mg QHS PO 11/25/20 21:00 12/14/20 20:23 Folic Acid (Folic Acid) 1 mg DAILY PO 11/26/20 09:00 12/14/20 08:45 Lidocaine (Lidoderm) 1 patch DAILY TD 11/26/20 09:00 12/14/20 08:43 Multivitamins/ Calcium (Thera-M Plus) 1 tab DAILY PO 11/26/20 09:00 12/14/20 08:44 Thiamine HCl (Vitamin B-1) 100 mg BID PO 11/25/20 21:00 12/14/20 20:23 Olanzapine (ZyPREXA ZYDIS) 2.5 mg PRN Q2HR PRN PO PSYCHOSIS 11/25/20 21:15 12/14/20 16:29 Trazodone HCl (Desyrel) 50 mg PRN QHS PRN PO INSOMNIA, MAY REPEAT IN 1HR 11/25/20 21:15 12/13/20 19:53 Mirtazapine (Remeron) 7.5 mg QHS PO 11/26/20 21:00 11/28/20 12:23 DC 11/27/20 20:00 Lactobacillus Rhamnosus (Culturelle) 1 cap BID PO 11/27/20 09:00 12/14/20 20:23 Sertraline HCl (Zoloft) 25 mg DAILY PO 11/28/20 09:00 11/30/20 09:01 DC 11/30/20 08:39 Sertraline HCl (Zoloft) 50 mg DAILY PO 12/01/20 09:00 12/03/20 11:00 DC 12/03/20 08:05 Mirtazapine (Remeron) 15 mg QHS PO 11/28/20 21:00 11/29/20 18:47 DC 11/28/20 19:38 Hydroxyzine HCl (Atarax) 25 mg PRN Q2HR PRN PO ABDOMINAL CRAMPS 11/28/20 21:45 12/03/20 02:37 Lorazepam (Ativan) 0.5 mg PRN Q4HRS PRN PO ANXIETY / AGITATION 11/28/20 21:45 11/29/20 21:45 DC Amitriptyline HCl (Elavil) 25 mg QHS PO 11/29/20 21:00 12/14/20 20:23 Melatonin (Melatonin) 3 mg QHS PO 11/29/20 21:00 12/14/20 20:23 Sertraline HCl (Zoloft) 75 mg DAILY PO 12/04/20 09:00 12/14/20 08:44 Divalproex Sodium (Depakote Er) 500 mg QHS PO 12/02/20 21:00 12/05/20 12:29 DC 12/04/20 20:08 Divalproex Sodium (Depakote Er) 1,000 mg QHS PO 12/05/20 21:00 12/14/20 20:23 I have reviewed the current psychotropics carefully including drug interactions. Risk benefit ratio favors no change other than as noted in my dictated progress note. Diagnosis: Problems: (1) Major neurocognitive disorder (2) Impulse control disorder, unspecified (3) Anxiety disorder, unspecified (4) Dementia, vascular, with depression (5) Dementia, vascular, with delusions (6) Dementia in Alzheimer's disease with depression (7) Dementia in Alzheimer's disease with delusions (8) Dementia of the Alzheimer's type with early onset with behavioral disturbance DONA BOTELLO MD Dec 14, 2020 21:00
--- NOTE | 2020-12-14 22:07 | NUR ---
Nursing Note: Pt laying quietly in bed. Pt calm, pleasantly confused, and interactive. Pt cooperative with assessment and compliant with medications administered whole.
[2020-12-15 06:19] LABS: HEMATOCRIT 39.9 % (39.0-53.0); HEMOGLOBIN 13.4 g/dL (13.0-17.5); RED BLOOD COUNT 4.46 x10^6/uL (4.30-5.70); WHITE BLOOD COUNT 4.6 x10^3/uL (4.0-11.0)
[2020-12-15 06:23] VITALS: BP 168/89
[2020-12-15 06:31] LABS: ALBUMIN 2.8 g/dL (3.4-5.0); ALBUMIN/GLOBULIN RATIO 0.8 (1.0-1.7); CALCIUM 8.6 mg/dL (8.5-10.1); CREATININE 0.9 mg/dL (0.7-1.3); GFR 80.8; POTASSIUM 3.9 mmol/L (3.5-5.1); TOTAL BILIRUBIN 0.4 mg/dL (0.2-1.0); TOTAL PROTEIN 6.2 g/dL (6.4-8.2)
--- NOTE | 2020-12-15 08:07 | PDOC ---
Exam Note: Gus Note: This note is a late entry for 12/14/2020 covers elements not covered in my initial note. Subjective: The patient was reviewed on telehealth rounds in the evening of 12/14/2020 with Morena OVIEDO. Discussed with nursing staff, reviewed the chart. The patient slept 7-1/4 hours previous night. The patient remains confused, gets somewhat anxious, restless. Received p.r.n. earlier in the day. He has been wandering, exit seeking, had to be in the [facility]. Received Zyprexa x2. Review of Systems: No CV, , pulmonary, eye, ENT system symptoms on review. Reliability poor. Mental Status Exam: The patient is oriented to himself. Speech, coherent. Abstraction is fair. Computation is impaired. Language function is intact. Attention span is short. Mood and affect withdrawn. No suicidal or homicidal ideation. Laboratory Data: Reviewed. Impression: Major neurocognitive disorder Alzheimer vascular with delusion, depression, behavioral disturbance. Anxiety disorder unspecified. Impulse control disorder unspecified. Plan: No change from initial note. Assessment: Vital Signs/I&O: Vital Signs Date Time Temp Pulse Resp B/P (MAP) Pulse Ox O2 Delivery O2 Flow Rate FiO2 12/15/20 06:23 97.4 88 18 168/89 (115) 97 Room Air I & O 12/14/20 12/14/20 12/15/20 14:59 22:59 06:59 Intake Total 580 ml 600 ml Balance 580 ml 600 ml Labs: Laboratory Tests Test 12/15/20 06:00 White Blood Count 4.6 x10^3/uL (4.0-11.0) Red Blood Count 4.46 x10^6/uL (4.30-5.70) Hemoglobin 13.4 g/dL (13.0-17.5) Hematocrit 39.9 % (39.0-53.0) Mean Corpuscular Volume 90 fL (79-100) Mean Corpuscular Hemoglobin 30 pg (25-35) Mean Corpuscular Hemoglobin Concent 34 g/dL (31-37) Red Cell Distribution Width 14.0 % (11.5-14.5) Platelet Count 214 x10^3/uL (140-400) Sodium Level 141 mmol/L (136-145) Potassium Level 3.9 mmol/L (3.5-5.1) Chloride Level 107 mmol/L (98-107) Carbon Dioxide Level 30 mmol/L (21-32) Anion Gap 4 (6-14) L Blood Urea Nitrogen 18 mg/dL (8-26) Creatinine 0.9 mg/dL (0.7-1.3) Estimated GFR (Cockcroft-Gault) 80.8 BUN/Creatinine Ratio 20 (6-20) Glucose Level 74 mg/dL (70-99) Calcium Level 8.6 mg/dL (8.5-10.1) Total Bilirubin 0.4 mg/dL (0.2-1.0) Aspartate Amino Transferase (AST) 13 U/L (15-37) L Alanine Aminotransferase (ALT) 21 U/L (16-63) Alkaline Phosphatase 90 U/L (46-116) Total Protein 6.2 g/dL (6.4-8.2) L Albumin 2.8 g/dL (3.4-5.0) L Albumin/Globulin Ratio 0.8 (1.0-1.7) L Current Medications: Meds: Laboratory Tests Test 12/15/20 06:00 White Blood Count 4.6 x10^3/uL Red Blood Count 4.46 x10^6/uL Hemoglobin 13.4 g/dL Hematocrit 39.9 % Mean Corpuscular Volume 90 fL Mean Corpuscular Hemoglobin 30 pg Mean Corpuscular Hemoglobin Concent 34 g/dL Red Cell Distribution Width 14.0 % Platelet Count 214 x10^3/uL Sodium Level 141 mmol/L Potassium Level 3.9 mmol/L Chloride Level 107 mmol/L Carbon Dioxide Level 30 mmol/L Anion Gap 4 Blood Urea Nitrogen 18 mg/dL Creatinine 0.9 mg/dL Estimated GFR (Cockcroft-Gault) 80.8 BUN/Creatinine Ratio 20 Glucose Level 74 mg/dL Calcium Level 8.6 mg/dL Total Bilirubin 0.4 mg/dL Aspartate Amino Transf (AST/SGOT) 13 U/L Alanine Aminotransferase (ALT/SGPT) 21 U/L Alkaline Phosphatase 90 U/L Total Protein 6.2 g/dL Albumin 2.8 g/dL Albumin/Globulin Ratio 0.8 Current Medications Medications (Trade) Dose Ordered Sig/Evaristo Route PRN Reason Start Time Stop Time Status Last Admin Dose Admin Acetaminophen (Tylenol) 650 mg PRN Q6HRS PRN PO MILD PAIN / TEMP > 100.3'F 11/25/20 18:00 Multi-Ingredient Ointment (Analgesic [place]) 1 addison PRN QID PRN TP MUSCLE PAIN 11/25/20 18:00 Al Hydroxide/Mg Hydroxide (Mylanta Plus Xs) 15 ml PRN AFTMEALHC PRN PO DYSPEPSIA 11/25/20 18:00 12/10/20 18:52 Magnesium Hydroxide (Milk Of Magnesia) 2,400 mg PRN QHS PRN PO CONSTIPATION 11/25/20 18:00 12/13/20 08:36 Amlodipine Besylate (Norvasc) 10 mg DAILY PO 11/26/20 09:00 12/14/20 08:44 Aspirin (Aspirin Chewable) 81 mg DAILY PO 11/26/20 09:00 12/14/20 08:44 Carvedilol (Coreg) 6.25 mg BIDWMEALS PO 11/25/20 18:30 12/14/20 16:30 Lisinopril (Prinivil) 10 mg DAILY PO 11/26/20 09:00 11/26/20 16:16 DC Quetiapine Fumarate (SEROquel) 25 mg QHS PO 11/25/20 21:00 12/14/20 20:23 Tamsulosin HCl (Flomax) 0.4 mg DAILY PO 11/26/20 09:00 12/14/20 08:44 Amoxicillin (Amoxil) 500 mg [id number] PO 11/25/20 21:00 12/02/20 14:01 DC 12/02/20 14:15 Atorvastatin Calcium (Lipitor) 40 mg QHS PO 11/25/20 21:00 12/14/20 20:23 Folic Acid (Folic Acid) 1 mg DAILY PO 11/26/20 09:00 12/14/20 08:45 Lidocaine (Lidoderm) 1 patch DAILY TD 11/26/20 09:00 12/14/20 08:43 Multivitamins/ Calcium (Thera-M Plus) 1 tab DAILY PO 11/26/20 09:00 12/14/20 08:44 Thiamine HCl (Vitamin B-1) 100 mg BID PO 11/25/20 21:00 12/14/20 20:23 Olanzapine (ZyPREXA ZYDIS) 2.5 mg PRN Q2HR PRN PO PSYCHOSIS 11/25/20 21:15 12/14/20 16:29 Trazodone HCl (Desyrel) 50 mg PRN QHS PRN PO INSOMNIA, MAY REPEAT IN 1HR 11/25/20 21:15 12/13/20 19:53 Mirtazapine (Remeron) 7.5 mg QHS PO 11/26/20 21:00 11/28/20 12:23 DC 11/27/20 20:00 Lactobacillus Rhamnosus (Culturelle) 1 cap BID PO 11/27/20 09:00 12/14/20 20:23 Sertraline HCl (Zoloft) 25 mg DAILY PO 11/28/20 09:00 11/30/20 09:01 DC 11/30/20 08:39 Sertraline HCl (Zoloft) 50 mg DAILY PO 12/01/20 09:00 12/03/20 11:00 DC 12/03/20 08:05 Mirtazapine (Remeron) 15 mg QHS PO 11/28/20 21:00 11/29/20 18:47 DC 11/28/20 19:38 Hydroxyzine HCl (Atarax) 25 mg PRN Q2HR PRN PO ABDOMINAL CRAMPS 11/28/20 21:45 12/03/20 02:37 Lorazepam (Ativan) 0.5 mg PRN Q4HRS PRN PO ANXIETY / AGITATION 11/28/20 21:45 11/29/20 21:45 DC Amitriptyline HCl (Elavil) 25 mg QHS PO 11/29/20 21:00 12/14/20 20:23 Melatonin (Melatonin) 3 mg QHS PO 11/29/20 21:00 12/14/20 20:23 Sertraline HCl (Zoloft) 75 mg DAILY PO 12/04/20 09:00 12/14/20 08:44 Divalproex Sodium (Depakote Er) 500 mg QHS PO 12/02/20 21:00 12/05/20 12:29 DC 12/04/20 20:08 Divalproex Sodium (Depakote Er) 1,000 mg QHS PO 12/05/20 21:00 12/14/20 20:23 I have reviewed the current psychotropics carefully including drug interactions. Risk benefit ratio favors no change other than as noted in my dictated progress note. Diagnosis: Problems: (1) Major neurocognitive disorder (2) Impulse control disorder, unspecified (3) Anxiety disorder, unspecified (4) Dementia, vascular, with depression (5) Dementia, vascular, with delusions (6) Dementia in Alzheimer's disease with depression (7) Dementia in Alzheimer's disease with delusions (8) Dementia of the Alzheimer's type with early onset with behavioral disturbance DONA BOTELLO MD Dec 15, 2020 08:07
[2020-12-15] MEDS: CARVEDILOL 6.25 MG TABLET PO SCH ×2 (08:13→17:12)
[2020-12-15] MEDS: FOLIC ACID 1 MG TABLET PO SCH (08:13)
[2020-12-15] MEDS: SERTRALINE 25 MG TABLET. PO SCH (08:13)
[2020-12-15] MEDS: LACTOBACILLUS RHAMNOSUS GG 1 CAPSULE. PO SCH ×2 (08:13→20:31)
[2020-12-15] MEDS: TAMSULOSIN 0.4 MG CAP.ER.24H. PO SCH (08:13)
[2020-12-15] MEDS: MULTIVITAMIN with MINERAL TABLET. PO SCH (08:14)
[2020-12-15] MEDS: ASPIRIN CHEWABLE 81 MG TABLET. PO SCH (08:14)
[2020-12-15] MEDS: THIAMINE 100 MG TABLET. PO SCH ×2 (08:14→20:31)
[2020-12-15] MEDS: amLODIPine BESYLATE 10 MG TABLET PO SCH (08:14)
[2020-12-15] MEDS: LIDOCAINE (700MG/PATCH) PATCH. TD SCH (08:15)
--- NOTE | 2020-12-15 13:09 | NUR ---
Nursing note: Pt in his room at time of AM med pass and assessment. He is pleasant, med compliant and cooperative. Pt has been walking around the unit, occasionally trying to figure out how to leave asking "how do I get out of here?" Pt is able to be redirected. Pt denies having pain, but says "that patch must really do the trick then" referring to his scheduled lidocaine patch he gets every morning. He is currently sitting in the day room for group. Will continue to monitor.
--- NOTE | 2020-12-15 15:34 | NUR ---
Nursing note: Pt very exit seeking and pressing button to get off the unit. Pt able to be redirected at that time, but quickly returns to exit seeking. PRN given. Will continue to monitor.
[2020-12-15 16:16] VITALS: BP 100/68
[2020-12-15] MEDS: MELATONIN 3 MG TABLET PO SCH (20:31)
[2020-12-15] MEDS: QUEtiapine 25 MG TABLET. PO SCH (20:31)
[2020-12-15] MEDS: ATORVASTATIN CALCIUM 20 MG TABLET PO SCH (20:31)
[2020-12-15] MEDS: AMITRIPTYLINE HCL 25 MG TABLET PO SCH (20:31)
[2020-12-15] MEDS: DIVALPROEX ER 500 MG TAB.ER.24H PO SCH (20:31)
--- NOTE | 2020-12-15 21:03 | PDOC ---
Exam Note: Gus Note: Please also refer to the separate dictated note~for this date of service dictated separately.~Patient seen individually. Discussed the patient with Nursing staff reviewed the chart.~Reviewed interim history and current functioning. Reviewed vital signs,~Labs/ Radiology~and current medications noted below. Continue current treatment with the changes noted in the dictated addendum note Assessment: Vital Signs/I&O: Vital Signs Date Time Temp Pulse Resp B/P (MAP) Pulse Ox O2 Delivery O2 Flow Rate FiO2 12/15/20 17:12 88 100/68 12/15/20 16:16 98.4 20 97 12/15/20 06:23 Room Air I & O 12/14/20 12/14/20 12/15/20 15:00 23:00 07:00 Intake Total 580 ml 600 ml Balance 580 ml 600 ml Labs: Laboratory Tests Test 12/15/20 06:00 White Blood Count 4.6 x10^3/uL (4.0-11.0) Red Blood Count 4.46 x10^6/uL (4.30-5.70) Hemoglobin 13.4 g/dL (13.0-17.5) Hematocrit 39.9 % (39.0-53.0) Mean Corpuscular Volume 90 fL (79-100) Mean Corpuscular Hemoglobin 30 pg (25-35) Mean Corpuscular Hemoglobin Concent 34 g/dL (31-37) Red Cell Distribution Width 14.0 % (11.5-14.5) Platelet Count 214 x10^3/uL (140-400) Sodium Level 141 mmol/L (136-145) Potassium Level 3.9 mmol/L (3.5-5.1) Chloride Level 107 mmol/L (98-107) Carbon Dioxide Level 30 mmol/L (21-32) Anion Gap 4 (6-14) L Blood Urea Nitrogen 18 mg/dL (8-26) Creatinine 0.9 mg/dL (0.7-1.3) Estimated GFR (Cockcroft-Gault) 80.8 BUN/Creatinine Ratio 20 (6-20) Glucose Level 74 mg/dL (70-99) Calcium Level 8.6 mg/dL (8.5-10.1) Total Bilirubin 0.4 mg/dL (0.2-1.0) Aspartate Amino Transferase (AST) 13 U/L (15-37) L Alanine Aminotransferase (ALT) 21 U/L (16-63) Alkaline Phosphatase 90 U/L (46-116) Total Protein 6.2 g/dL (6.4-8.2) L Albumin 2.8 g/dL (3.4-5.0) L Albumin/Globulin Ratio 0.8 (1.0-1.7) L Current Medications: Meds: Laboratory Tests Test 12/15/20 06:00 White Blood Count 4.6 x10^3/uL Red Blood Count 4.46 x10^6/uL Hemoglobin 13.4 g/dL Hematocrit 39.9 % Mean Corpuscular Volume 90 fL Mean Corpuscular Hemoglobin 30 pg Mean Corpuscular Hemoglobin Concent 34 g/dL Red Cell Distribution Width 14.0 % Platelet Count 214 x10^3/uL Sodium Level 141 mmol/L Potassium Level 3.9 mmol/L Chloride Level 107 mmol/L Carbon Dioxide Level 30 mmol/L Anion Gap 4 Blood Urea Nitrogen 18 mg/dL Creatinine 0.9 mg/dL Estimated GFR (Cockcroft-Gault) 80.8 BUN/Creatinine Ratio 20 Glucose Level 74 mg/dL Calcium Level 8.6 mg/dL Total Bilirubin 0.4 mg/dL Aspartate Amino Transf (AST/SGOT) 13 U/L Alanine Aminotransferase (ALT/SGPT) 21 U/L Alkaline Phosphatase 90 U/L Total Protein 6.2 g/dL Albumin 2.8 g/dL Albumin/Globulin Ratio 0.8 Current Medications Medications (Trade) Dose Ordered Sig/Evaristo Route PRN Reason Start Time Stop Time Status Last Admin Dose Admin Acetaminophen (Tylenol) 650 mg PRN Q6HRS PRN PO MILD PAIN / TEMP > 100.3'F 11/25/20 18:00 Multi-Ingredient Ointment (Analgesic [place]) 1 addison PRN QID PRN TP MUSCLE PAIN 11/25/20 18:00 Al Hydroxide/Mg Hydroxide (Mylanta Plus Xs) 15 ml PRN AFTMEALHC PRN PO DYSPEPSIA 11/25/20 18:00 12/10/20 18:52 Magnesium Hydroxide (Milk Of Magnesia) 2,400 mg PRN QHS PRN PO CONSTIPATION 11/25/20 18:00 12/13/20 08:36 Amlodipine Besylate (Norvasc) 10 mg DAILY PO 11/26/20 09:00 12/15/20 08:14 Aspirin (Aspirin Chewable) 81 mg DAILY PO 11/26/20 09:00 12/15/20 08:14 Carvedilol (Coreg) 6.25 mg BIDWMEALS PO 11/25/20 18:30 12/15/20 17:12 Lisinopril (Prinivil) 10 mg DAILY PO 11/26/20 09:00 11/26/20 16:16 DC Quetiapine Fumarate (SEROquel) 25 mg QHS PO 11/25/20 21:00 12/15/20 20:31 Tamsulosin HCl (Flomax) 0.4 mg DAILY PO 11/26/20 09:00 12/15/20 08:13 Amoxicillin (Amoxil) 500 mg [id number] PO 11/25/20 21:00 12/02/20 14:01 DC 12/02/20 14:15 Atorvastatin Calcium (Lipitor) 40 mg QHS PO 11/25/20 21:00 12/15/20 20:31 Folic Acid (Folic Acid) 1 mg DAILY PO 11/26/20 09:00 12/15/20 08:13 Lidocaine (Lidoderm) 1 patch DAILY TD 11/26/20 09:00 12/15/20 08:15 Multivitamins/ Calcium (Thera-M Plus) 1 tab DAILY PO 11/26/20 09:00 12/15/20 08:14 Thiamine HCl (Vitamin B-1) 100 mg BID PO 11/25/20 21:00 12/15/20 20:31 Olanzapine (ZyPREXA ZYDIS) 2.5 mg PRN Q2HR PRN PO PSYCHOSIS 11/25/20 21:15 12/15/20 15:23 Trazodone HCl (Desyrel) 50 mg PRN QHS PRN PO INSOMNIA, MAY REPEAT IN 1HR 11/25/20 21:15 12/13/20 19:53 Mirtazapine (Remeron) 7.5 mg QHS PO 11/26/20 21:00 11/28/20 12:23 DC 11/27/20 20:00 Lactobacillus Rhamnosus (Culturelle) 1 cap BID PO 11/27/20 09:00 12/15/20 20:31 Sertraline HCl (Zoloft) 25 mg DAILY PO 11/28/20 09:00 11/30/20 09:01 DC 11/30/20 08:39 Sertraline HCl (Zoloft) 50 mg DAILY PO 12/01/20 09:00 12/03/20 11:00 DC 12/03/20 08:05 Mirtazapine (Remeron) 15 mg QHS PO 11/28/20 21:00 11/29/20 18:47 DC 11/28/20 19:38 Hydroxyzine HCl (Atarax) 25 mg PRN Q2HR PRN PO ABDOMINAL CRAMPS 11/28/20 21:45 12/03/20 02:37 Lorazepam (Ativan) 0.5 mg PRN Q4HRS PRN PO ANXIETY / AGITATION 11/28/20 21:45 11/29/20 21:45 DC Amitriptyline HCl (Elavil) 25 mg QHS PO 11/29/20 21:00 12/15/20 20:31 Melatonin (Melatonin) 3 mg QHS PO 11/29/20 21:00 12/15/20 20:31 Sertraline HCl (Zoloft) 75 mg DAILY PO 12/04/20 09:00 12/15/20 08:13 Divalproex Sodium (Depakote Er) 500 mg QHS PO 12/02/20 21:00 12/05/20 12:29 DC 12/04/20 20:08 Divalproex Sodium (Depakote Er) 1,000 mg QHS PO 12/05/20 21:00 12/15/20 20:31 I have reviewed the current psychotropics carefully including drug interactions. Risk benefit ratio favors no change other than as noted in my dictated progress note. Diagnosis: Problems: (1) Major neurocognitive disorder (2) Impulse control disorder, unspecified (3) Anxiety disorder, unspecified (4) Dementia, vascular, with depression (5) Dementia, vascular, with delusions (6) Dementia in Alzheimer's disease with depression (7) Dementia in Alzheimer's disease with delusions (8) Dementia of the Alzheimer's type with early onset with behavioral disturbance DONA BOTELLO MD Dec 15, 2020 21:03
--- NOTE | 2020-12-15 22:13 | NUR ---
Nursing Note: Pt wandering the unit. Pt think he need to find the milk shipment and unload it. Pt pleasantly confused and interactive. Pt cooperative with assessment and compliant with medications with encouragement. Dressing changed to left forearm skin tear.
[2020-12-15] MEDS: traZODone 50 MG TABLET. PO PRN (23:32)
[2020-12-16 06:13] VITALS: BP 154/93
[2020-12-16] MEDS: CARVEDILOL 6.25 MG TABLET PO SCH ×2 (08:11→17:44)
[2020-12-16] MEDS: amLODIPine BESYLATE 10 MG TABLET PO SCH (08:11)
[2020-12-16] MEDS: FOLIC ACID 1 MG TABLET PO SCH (08:11)
[2020-12-16] MEDS: SERTRALINE 25 MG TABLET. PO SCH (08:12)
[2020-12-16] MEDS: LIDOCAINE (700MG/PATCH) PATCH. TD SCH (08:12)
[2020-12-16] MEDS: MULTIVITAMIN with MINERAL TABLET. PO SCH (08:12)
[2020-12-16] MEDS: TAMSULOSIN 0.4 MG CAP.ER.24H. PO SCH (08:12)
[2020-12-16] MEDS: ASPIRIN CHEWABLE 81 MG TABLET. PO SCH (08:12)
[2020-12-16] MEDS: THIAMINE 100 MG TABLET. PO SCH ×2 (08:12→20:03)
[2020-12-16] MEDS: LACTOBACILLUS RHAMNOSUS GG 1 CAPSULE. PO SCH ×2 (08:12→20:04)
--- NOTE | 2020-12-16 08:22 | PDOC ---
Exam Note: Gus Note: This note is a late entry for 12/15/2020 covers elements not covered in my initial note. Subjective: The patient was reviewed on telehealth rounds in the evening of 12/15/2020 with Radha OVIEDO. Discussed with nursing staff, reviewed the chart. The patient slept 6 hours previous night. The patient has been confused, otherwise, cooperative, trying to exit in the evening, redirected. Received Zyprexa at 1520 hours. Review of Systems: No CV, , pulmonary, eye, ENT system symptoms on review. Reliability poor. Mental Status Exam: The patient is oriented to himself. Insight and judgment, recent and remote memory, attention and concentration, fund of knowledge is poor consistent with his diagnosis mentioned in my initial note. Laboratory Data: Reviewed. Impression: Major neurocognitive disorder Alzheimer vascular with delusion, depression, behavioral disturbance. Anxiety disorder unspecified. Impulse control disorder unspecified. Plan: No change from initial note. Assessment: Vital Signs/I&O: Vital Signs Date Time Temp Pulse Resp B/P (MAP) Pulse Ox O2 Delivery O2 Flow Rate FiO2 12/16/20 08:11 69 154/93 12/16/20 06:13 97.8 16 97 12/15/20 06:23 Room Air I & O 12/15/20 12/15/20 12/16/20 15:00 23:00 07:00 Intake Total 720 ml 60 ml 120 ml Balance 720 ml 60 ml 120 ml Current Medications: Meds: Current Medications Medications (Trade) Dose Ordered Sig/Evaristo Route PRN Reason Start Time Stop Time Status Last Admin Dose Admin Acetaminophen (Tylenol) 650 mg PRN Q6HRS PRN PO MILD PAIN / TEMP > 100.3'F 11/25/20 18:00 Multi-Ingredient Ointment (Analgesic [place]) 1 addison PRN QID PRN TP MUSCLE PAIN 11/25/20 18:00 Al Hydroxide/Mg Hydroxide (Mylanta Plus Xs) 15 ml PRN AFTMEALHC PRN PO DYSPEPSIA 11/25/20 18:00 12/10/20 18:52 Magnesium Hydroxide (Milk Of Magnesia) 2,400 mg PRN QHS PRN PO CONSTIPATION 11/25/20 18:00 12/13/20 08:36 Amlodipine Besylate (Norvasc) 10 mg DAILY PO 11/26/20 09:00 12/16/20 08:11 Aspirin (Aspirin Chewable) 81 mg DAILY PO 11/26/20 09:00 12/16/20 08:12 Carvedilol (Coreg) 6.25 mg BIDWMEALS PO 11/25/20 18:30 12/16/20 08:11 Lisinopril (Prinivil) 10 mg DAILY PO 11/26/20 09:00 11/26/20 16:16 DC Quetiapine Fumarate (SEROquel) 25 mg QHS PO 11/25/20 21:00 12/15/20 20:31 Tamsulosin HCl (Flomax) 0.4 mg DAILY PO 11/26/20 09:00 12/16/20 08:12 Amoxicillin (Amoxil) 500 mg [id number] PO 11/25/20 21:00 12/02/20 14:01 DC 12/02/20 14:15 Atorvastatin Calcium (Lipitor) 40 mg QHS PO 11/25/20 21:00 12/15/20 20:31 Folic Acid (Folic Acid) 1 mg DAILY PO 11/26/20 09:00 12/16/20 08:11 Lidocaine (Lidoderm) 1 patch DAILY TD 11/26/20 09:00 12/16/20 08:12 Multivitamins/ Calcium (Thera-M Plus) 1 tab DAILY PO 11/26/20 09:00 12/16/20 08:12 Thiamine HCl (Vitamin B-1) 100 mg BID PO 11/25/20 21:00 12/16/20 08:12 Olanzapine (ZyPREXA ZYDIS) 2.5 mg PRN Q2HR PRN PO PSYCHOSIS 11/25/20 21:15 12/15/20 15:23 Trazodone HCl (Desyrel) 50 mg PRN QHS PRN PO INSOMNIA, MAY REPEAT IN 1HR 11/25/20 21:15 12/15/20 23:32 Mirtazapine (Remeron) 7.5 mg QHS PO 11/26/20 21:00 11/28/20 12:23 DC 11/27/20 20:00 Lactobacillus Rhamnosus (Culturelle) 1 cap BID PO 11/27/20 09:00 12/16/20 08:12 Sertraline HCl (Zoloft) 25 mg DAILY PO 11/28/20 09:00 11/30/20 09:01 DC 11/30/20 08:39 Sertraline HCl (Zoloft) 50 mg DAILY PO 12/01/20 09:00 12/03/20 11:00 DC 12/03/20 08:05 Mirtazapine (Remeron) 15 mg QHS PO 11/28/20 21:00 11/29/20 18:47 DC 11/28/20 19:38 Hydroxyzine HCl (Atarax) 25 mg PRN Q2HR PRN PO ABDOMINAL CRAMPS 11/28/20 21:45 12/03/20 02:37 Lorazepam (Ativan) 0.5 mg PRN Q4HRS PRN PO ANXIETY / AGITATION 11/28/20 21:45 11/29/20 21:45 DC Amitriptyline HCl (Elavil) 25 mg QHS PO 11/29/20 21:00 12/15/20 20:31 Melatonin (Melatonin) 3 mg QHS PO 11/29/20 21:00 12/15/20 20:31 Sertraline HCl (Zoloft) 75 mg DAILY PO 12/04/20 09:00 12/16/20 08:12 Divalproex Sodium (Depakote Er) 500 mg QHS PO 12/02/20 21:00 12/05/20 12:29 DC 12/04/20 20:08 Divalproex Sodium (Depakote Er) 1,000 mg QHS PO 12/05/20 21:00 12/15/20 20:31 I have reviewed the current psychotropics carefully including drug interactions. Risk benefit ratio favors no change other than as noted in my dictated progress note. Diagnosis: Problems: (1) Major neurocognitive disorder (2) Impulse control disorder, unspecified (3) Anxiety disorder, unspecified (4) Dementia, vascular, with depression (5) Dementia, vascular, with delusions (6) Dementia in Alzheimer's disease with depression (7) Dementia in Alzheimer's disease with delusions (8) Dementia of the Alzheimer's type with early onset with behavioral disturbance DONA BOTELLO MD Dec 16, 2020 08:22
--- NOTE | 2020-12-16 15:06 | NUR ---
Nursing note: Pt has been up walking around the unit for most of the shift, exit seeking at times. He has been concerned about some of the other pt's on the unit so he has been more intrusive at times today than previous days. He is easily redirected, but is confused and forgetful so he requires redirection often. He is med compliant and cooperative. He is currently walking around the unit. Will continue to monitor.
[2020-12-16 16:43] VITALS: BP 158/91
[2020-12-16] MEDS: QUEtiapine 25 MG TABLET. PO SCH (20:03)
[2020-12-16] MEDS: AMITRIPTYLINE HCL 25 MG TABLET PO SCH (20:04)
[2020-12-16] MEDS: DIVALPROEX ER 500 MG TAB.ER.24H PO SCH (20:04)
[2020-12-16] MEDS: ATORVASTATIN CALCIUM 20 MG TABLET PO SCH (20:04)
[2020-12-16] MEDS: MELATONIN 3 MG TABLET PO SCH (21:00)
--- NOTE | 2020-12-16 21:00 | NUR ---
Pt was in hallway for med pass and assessment. Pt has been calm and compliant this evening. Pt was able to take meds whole with no difficultly. Pt is currently resting in bed. Will continue to monitor.
--- NOTE | 2020-12-16 21:12 | PDOC ---
Exam Note: Gus Note: Please also refer to the separate dictated note~for this date of service dictated separately.~Patient seen individually. Discussed the patient with Nursing staff reviewed the chart.~Reviewed interim history and current functioning. Reviewed vital signs,~Labs/ Radiology~and current medications noted below. Continue current treatment with the changes noted in the dictated addendum note Assessment: Vital Signs/I&O: Vital Signs Date Time Temp Pulse Resp B/P (MAP) Pulse Ox O2 Delivery O2 Flow Rate FiO2 12/16/20 17:44 89 158/91 12/16/20 16:43 96.1 20 97 Room Air I & O 12/15/20 12/15/20 12/16/20 15:00 23:00 07:00 Intake Total 720 ml 60 ml 120 ml Balance 720 ml 60 ml 120 ml Labs: Laboratory Tests Test 12/16/20 05:20 Coronavirus (PCR) Not detected (Not Detected) Current Medications: Meds: Laboratory Tests Test 12/16/20 05:20 Coronavirus (PCR) Not detected Current Medications Medications (Trade) Dose Ordered Sig/Evaristo Route PRN Reason Start Time Stop Time Status Last Admin Dose Admin Acetaminophen (Tylenol) 650 mg PRN Q6HRS PRN PO MILD PAIN / TEMP > 100.3'F 11/25/20 18:00 Multi-Ingredient Ointment (Analgesic [place]) 1 addison PRN QID PRN TP MUSCLE PAIN 11/25/20 18:00 Al Hydroxide/Mg Hydroxide (Mylanta Plus Xs) 15 ml PRN AFTMEALHC PRN PO DYSPEPSIA 11/25/20 18:00 12/10/20 18:52 Magnesium Hydroxide (Milk Of Magnesia) 2,400 mg PRN QHS PRN PO CONSTIPATION 11/25/20 18:00 12/13/20 08:36 Amlodipine Besylate (Norvasc) 10 mg DAILY PO 11/26/20 09:00 12/16/20 08:11 Aspirin (Aspirin Chewable) 81 mg DAILY PO 11/26/20 09:00 12/16/20 08:12 Carvedilol (Coreg) 6.25 mg BIDWMEALS PO 11/25/20 18:30 12/16/20 17:44 Lisinopril (Prinivil) 10 mg DAILY PO 11/26/20 09:00 11/26/20 16:16 DC Quetiapine Fumarate (SEROquel) 25 mg QHS PO 11/25/20 21:00 12/16/20 20:03 Tamsulosin HCl (Flomax) 0.4 mg DAILY PO 11/26/20 09:00 12/16/20 08:12 Amoxicillin (Amoxil) 500 mg [id number] PO 11/25/20 21:00 12/02/20 14:01 DC 12/02/20 14:15 Atorvastatin Calcium (Lipitor) 40 mg QHS PO 11/25/20 21:00 12/16/20 20:04 Folic Acid (Folic Acid) 1 mg DAILY PO 11/26/20 09:00 12/16/20 08:11 Lidocaine (Lidoderm) 1 patch DAILY TD 11/26/20 09:00 12/16/20 08:12 Multivitamins/ Calcium (Thera-M Plus) 1 tab DAILY PO 11/26/20 09:00 12/16/20 08:12 Thiamine HCl (Vitamin B-1) 100 mg BID PO 11/25/20 21:00 12/16/20 20:03 Olanzapine (ZyPREXA ZYDIS) 2.5 mg PRN Q2HR PRN PO PSYCHOSIS 11/25/20 21:15 12/15/20 15:23 Trazodone HCl (Desyrel) 50 mg PRN QHS PRN PO INSOMNIA, MAY REPEAT IN 1HR 11/25/20 21:15 12/15/20 23:32 Mirtazapine (Remeron) 7.5 mg QHS PO 11/26/20 21:00 11/28/20 12:23 DC 11/27/20 20:00 Lactobacillus Rhamnosus (Culturelle) 1 cap BID PO 11/27/20 09:00 12/16/20 20:04 Sertraline HCl (Zoloft) 25 mg DAILY PO 11/28/20 09:00 11/30/20 09:01 DC 11/30/20 08:39 Sertraline HCl (Zoloft) 50 mg DAILY PO 12/01/20 09:00 12/03/20 11:00 DC 12/03/20 08:05 Mirtazapine (Remeron) 15 mg QHS PO 11/28/20 21:00 11/29/20 18:47 DC 11/28/20 19:38 Hydroxyzine HCl (Atarax) 25 mg PRN Q2HR PRN PO ABDOMINAL CRAMPS 11/28/20 21:45 12/03/20 02:37 Lorazepam (Ativan) 0.5 mg PRN Q4HRS PRN PO ANXIETY / AGITATION 11/28/20 21:45 11/29/20 21:45 DC Amitriptyline HCl (Elavil) 25 mg QHS PO 11/29/20 21:00 12/16/20 20:04 Melatonin (Melatonin) 3 mg QHS PO 11/29/20 21:00 12/15/20 20:31 Sertraline HCl (Zoloft) 75 mg DAILY PO 12/04/20 09:00 12/16/20 08:12 Divalproex Sodium (Depakote Er) 500 mg QHS PO 12/02/20 21:00 12/05/20 12:29 DC 12/04/20 20:08 Divalproex Sodium (Depakote Er) 1,000 mg QHS PO 12/05/20 21:00 12/16/20 20:04 Quetiapine Fumarate (SEROquel) 12.5 mg DAILY PO 12/17/20 09:00 I have reviewed the current psychotropics carefully including drug interactions. Risk benefit ratio favors no change other than as noted in my dictated progress note. Diagnosis: Problems: (1) Major neurocognitive disorder (2) Impulse control disorder, unspecified (3) Anxiety disorder, unspecified (4) Dementia, vascular, with depression (5) Dementia, vascular, with delusions (6) Dementia in Alzheimer's disease with depression (7) Dementia in Alzheimer's disease with delusions (8) Dementia of the Alzheimer's type with early onset with behavioral disturbance DONA BOTELLO MD Dec 16, 2020 21:12
[2020-12-17 06:08] VITALS: BP 124/76
--- NOTE | 2020-12-17 07:46 | PDOC ---
Exam Note: Gus Note: This note is a late entry for 12/16/2020 covers elements not covered in my initial note. Subjective: The patient was reviewed on telehealth rounds in the evening of 12/16/2020 with Radha OVIEDO. Discussed with nursing staff, reviewed the chart. The patient slept 6 hours previous night. The patient has been wandering, exit- seeking, intrusive and does redirect. She was trying to pull one of the other patients out of her room, resistive to medications. Review of Systems: No CV, , pulmonary, eye, ENT system symptoms on review. Mental Status Exam: The patient is oriented to himself. Insight and judgment, recent and remote memory, attention and concentration, fund of knowledge is poor consistent with his diagnosis mentioned in my initial note. Laboratory Data: Reviewed. Impression: Major neurocognitive disorder Alzheimer vascular with delusion, depression, behavioral disturbance. Anxiety disorder unspecified. Impulse control disorder unspecified. Plan: Continue current psychotropics. Start Seroquel 12.5 mg a.m. Adjust further as clinically indicated. Assessment: Vital Signs/I&O: Vital Signs Date Time Temp Pulse Resp B/P (MAP) Pulse Ox O2 Delivery O2 Flow Rate FiO2 12/17/20 06:08 97.2 66 20 124/76 (92) 97 12/16/20 16:43 Room Air I & O 12/16/20 12/16/20 12/17/20 15:00 23:00 07:00 Intake Total 600 ml 240 ml Balance 600 ml 240 ml Current Medications: Meds: Current Medications Medications (Trade) Dose Ordered Sig/Evaristo Route PRN Reason Start Time Stop Time Status Last Admin Dose Admin Acetaminophen (Tylenol) 650 mg PRN Q6HRS PRN PO MILD PAIN / TEMP > 100.3'F 11/25/20 18:00 Multi-Ingredient Ointment (Analgesic [place]) 1 addison PRN QID PRN TP MUSCLE PAIN 11/25/20 18:00 Al Hydroxide/Mg Hydroxide (Mylanta Plus Xs) 15 ml PRN AFTMEALHC PRN PO DYSPEPSIA 11/25/20 18:00 12/10/20 18:52 Magnesium Hydroxide (Milk Of Magnesia) 2,400 mg PRN QHS PRN PO CONSTIPATION 11/25/20 18:00 12/13/20 08:36 Amlodipine Besylate (Norvasc) 10 mg DAILY PO 11/26/20 09:00 12/16/20 08:11 Aspirin (Aspirin Chewable) 81 mg DAILY PO 11/26/20 09:00 12/16/20 08:12 Carvedilol (Coreg) 6.25 mg BIDWMEALS PO 11/25/20 18:30 12/16/20 17:44 Lisinopril (Prinivil) 10 mg DAILY PO 11/26/20 09:00 11/26/20 16:16 DC Quetiapine Fumarate (SEROquel) 25 mg QHS PO 11/25/20 21:00 12/16/20 20:03 Tamsulosin HCl (Flomax) 0.4 mg DAILY PO 11/26/20 09:00 12/16/20 08:12 Amoxicillin (Amoxil) 500 mg [id number] PO 11/25/20 21:00 12/02/20 14:01 DC 12/02/20 14:15 Atorvastatin Calcium (Lipitor) 40 mg QHS PO 11/25/20 21:00 12/16/20 20:04 Folic Acid (Folic Acid) 1 mg DAILY PO 11/26/20 09:00 12/16/20 08:11 Lidocaine (Lidoderm) 1 patch DAILY TD 11/26/20 09:00 12/16/20 08:12 Multivitamins/ Calcium (Thera-M Plus) 1 tab DAILY PO 11/26/20 09:00 12/16/20 08:12 Thiamine HCl (Vitamin B-1) 100 mg BID PO 11/25/20 21:00 12/16/20 20:03 Olanzapine (ZyPREXA ZYDIS) 2.5 mg PRN Q2HR PRN PO PSYCHOSIS 11/25/20 21:15 12/15/20 15:23 Trazodone HCl (Desyrel) 50 mg PRN QHS PRN PO INSOMNIA, MAY REPEAT IN 1HR 11/25/20 21:15 12/15/20 23:32 Mirtazapine (Remeron) 7.5 mg QHS PO 11/26/20 21:00 11/28/20 12:23 DC 11/27/20 20:00 Lactobacillus Rhamnosus (Culturelle) 1 cap BID PO 11/27/20 09:00 12/16/20 20:04 Sertraline HCl (Zoloft) 25 mg DAILY PO 11/28/20 09:00 11/30/20 09:01 DC 11/30/20 08:39 Sertraline HCl (Zoloft) 50 mg DAILY PO 12/01/20 09:00 12/03/20 11:00 DC 12/03/20 08:05 Mirtazapine (Remeron) 15 mg QHS PO 11/28/20 21:00 11/29/20 18:47 DC 11/28/20 19:38 Hydroxyzine HCl (Atarax) 25 mg PRN Q2HR PRN PO ABDOMINAL CRAMPS 11/28/20 21:45 12/03/20 02:37 Lorazepam (Ativan) 0.5 mg PRN Q4HRS PRN PO ANXIETY / AGITATION 11/28/20 21:45 11/29/20 21:45 DC Amitriptyline HCl (Elavil) 25 mg QHS PO 11/29/20 21:00 12/16/20 20:04 Melatonin (Melatonin) 3 mg QHS PO 11/29/20 21:00 12/16/20 21:00 Sertraline HCl (Zoloft) 75 mg DAILY PO 12/04/20 09:00 12/16/20 08:12 Divalproex Sodium (Depakote Er) 500 mg QHS PO 12/02/20 21:00 12/05/20 12:29 DC 12/04/20 20:08 Divalproex Sodium (Depakote Er) 1,000 mg QHS PO 12/05/20 21:00 12/16/20 20:04 Quetiapine Fumarate (SEROquel) 12.5 mg DAILY PO 12/17/20 09:00 I have reviewed the current psychotropics carefully including drug interactions. Risk benefit ratio favors no change other than as noted in my dictated progress note. Diagnosis: Problems: (1) Major neurocognitive disorder (2) Impulse control disorder, unspecified (3) Anxiety disorder, unspecified (4) Dementia, vascular, with depression (5) Dementia, vascular, with delusions (6) Dementia in Alzheimer's disease with depression (7) Dementia in Alzheimer's disease with delusions (8) Dementia of the Alzheimer's type with early onset with behavioral disturbance DONA BOTELLO MD Dec 17, 2020 07:46
[2020-12-17] MEDS: LIDOCAINE (700MG/PATCH) PATCH. TD SCH (09:04)
[2020-12-17] MEDS: amLODIPine BESYLATE 10 MG TABLET PO SCH (09:04)
[2020-12-17] MEDS: LACTOBACILLUS RHAMNOSUS GG 1 CAPSULE. PO SCH ×2 (09:05→20:51)
[2020-12-17] MEDS: CARVEDILOL 6.25 MG TABLET PO SCH ×2 (09:05→17:29)
[2020-12-17] MEDS: ASPIRIN CHEWABLE 81 MG TABLET. PO SCH (09:05)
[2020-12-17] MEDS: MULTIVITAMIN with MINERAL TABLET. PO SCH (09:05)
[2020-12-17] MEDS: TAMSULOSIN 0.4 MG CAP.ER.24H. PO SCH (09:05)
[2020-12-17] MEDS: FOLIC ACID 1 MG TABLET PO SCH (09:06)
[2020-12-17] MEDS: SERTRALINE 25 MG TABLET. PO SCH (09:06)
[2020-12-17] MEDS: QUEtiapine 25 MG TABLET. PO SCH ×2 (09:06→20:52)
[2020-12-17] MEDS: THIAMINE 100 MG TABLET. PO SCH ×2 (09:06→20:52)
[2020-12-17 16:10] VITALS: BP 132/79
--- NOTE | 2020-12-17 17:55 | NUR ---
Pt up adl in halls. Has been less intrusive today after new dose of seroquel. 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 Pt given a dust torres and broom and was able to sweep for about 20-30 min. More confused and intrusive at supper. Zydis given.
[2020-12-17] MEDS: DIVALPROEX ER 500 MG TAB.ER.24H PO SCH (20:51)
[2020-12-17] MEDS: MELATONIN 3 MG TABLET PO SCH (20:51)
[2020-12-17] MEDS: traZODone 50 MG TABLET. PO PRN (20:52)
[2020-12-17] MEDS: ATORVASTATIN CALCIUM 20 MG TABLET PO SCH (20:52)
[2020-12-17] MEDS: AMITRIPTYLINE HCL 25 MG TABLET PO SCH (20:52)
--- NOTE | 2020-12-17 20:58 | PDOC ---
Exam Note: Gus Note: Please also refer to the separate dictated note~for this date of service dictated separately.~Patient seen individually. Discussed the patient with Nursing staff reviewed the chart.~Reviewed interim history and current functioning. Reviewed vital signs,~Labs/ Radiology~and current medications noted below. Continue current treatment with the changes noted in the dictated addendum note Assessment: Vital Signs/I&O: Vital Signs Date Time Temp Pulse Resp B/P (MAP) Pulse Ox O2 Delivery O2 Flow Rate FiO2 12/17/20 17:29 82 132/79 12/17/20 16:10 97.4 18 97 12/16/20 16:43 Room Air I & O 12/16/20 12/16/20 12/17/20 15:00 23:00 07:00 Intake Total 600 ml 240 ml Balance 600 ml 240 ml Current Medications: Meds: Current Medications Medications (Trade) Dose Ordered Sig/Evaristo Route PRN Reason Start Time Stop Time Status Last Admin Dose Admin Acetaminophen (Tylenol) 650 mg PRN Q6HRS PRN PO MILD PAIN / TEMP > 100.3'F 11/25/20 18:00 Multi-Ingredient Ointment (Analgesic [place]) 1 addison PRN QID PRN TP MUSCLE PAIN 11/25/20 18:00 Al Hydroxide/Mg Hydroxide (Mylanta Plus Xs) 15 ml PRN AFTMEALHC PRN PO DYSPEPSIA 11/25/20 18:00 12/10/20 18:52 Magnesium Hydroxide (Milk Of Magnesia) 2,400 mg PRN QHS PRN PO CONSTIPATION 11/25/20 18:00 12/13/20 08:36 Amlodipine Besylate (Norvasc) 10 mg DAILY PO 11/26/20 09:00 12/17/20 09:04 Aspirin (Aspirin Chewable) 81 mg DAILY PO 11/26/20 09:00 12/17/20 09:05 Carvedilol (Coreg) 6.25 mg BIDWMEALS PO 11/25/20 18:30 12/17/20 17:29 Lisinopril (Prinivil) 10 mg DAILY PO 11/26/20 09:00 11/26/20 16:16 DC Quetiapine Fumarate (SEROquel) 25 mg QHS PO 11/25/20 21:00 12/17/20 20:52 Tamsulosin HCl (Flomax) 0.4 mg DAILY PO 11/26/20 09:00 12/17/20 09:05 Amoxicillin (Amoxil) 500 mg [id number] PO 11/25/20 21:00 12/02/20 14:01 DC 12/02/20 14:15 Atorvastatin Calcium (Lipitor) 40 mg QHS PO 11/25/20 21:00 12/17/20 20:52 Folic Acid (Folic Acid) 1 mg DAILY PO 11/26/20 09:00 12/17/20 09:06 Lidocaine (Lidoderm) 1 patch DAILY TD 11/26/20 09:00 12/17/20 09:04 Multivitamins/ Calcium (Thera-M Plus) 1 tab DAILY PO 11/26/20 09:00 12/17/20 09:05 Thiamine HCl (Vitamin B-1) 100 mg BID PO 11/25/20 21:00 12/17/20 20:52 Olanzapine (ZyPREXA ZYDIS) 2.5 mg PRN Q2HR PRN PO PSYCHOSIS 11/25/20 21:15 12/17/20 17:29 Trazodone HCl (Desyrel) 50 mg PRN QHS PRN PO INSOMNIA, MAY REPEAT IN 1HR 11/25/20 21:15 12/17/20 20:52 Mirtazapine (Remeron) 7.5 mg QHS PO 11/26/20 21:00 11/28/20 12:23 DC 11/27/20 20:00 Lactobacillus Rhamnosus (Culturelle) 1 cap BID PO 11/27/20 09:00 12/17/20 20:51 Sertraline HCl (Zoloft) 25 mg DAILY PO 11/28/20 09:00 11/30/20 09:01 DC 11/30/20 08:39 Sertraline HCl (Zoloft) 50 mg DAILY PO 12/01/20 09:00 12/03/20 11:00 DC 12/03/20 08:05 Mirtazapine (Remeron) 15 mg QHS PO 11/28/20 21:00 11/29/20 18:47 DC 11/28/20 19:38 Hydroxyzine HCl (Atarax) 25 mg PRN Q2HR PRN PO ABDOMINAL CRAMPS 11/28/20 21:45 12/03/20 02:37 Lorazepam (Ativan) 0.5 mg PRN Q4HRS PRN PO ANXIETY / AGITATION 11/28/20 21:45 11/29/20 21:45 DC Amitriptyline HCl (Elavil) 25 mg QHS PO 11/29/20 21:00 12/17/20 20:52 Melatonin (Melatonin) 3 mg QHS PO 11/29/20 21:00 12/17/20 20:51 Sertraline HCl (Zoloft) 75 mg DAILY PO 12/04/20 09:00 12/17/20 09:06 Divalproex Sodium (Depakote Er) 500 mg QHS PO 12/02/20 21:00 12/05/20 12:29 DC 12/04/20 20:08 Divalproex Sodium (Depakote Er) 1,000 mg QHS PO 12/05/20 21:00 12/17/20 20:51 Quetiapine Fumarate (SEROquel) 12.5 mg DAILY PO 12/17/20 09:00 12/17/20 09:06 Current Medications Medications (Trade) Dose Ordered Sig/Evaristo Route PRN Reason Start Time Stop Time Status Last Admin Dose Admin Quetiapine Fumarate (SEROquel) 12.5 mg DAILY PO 12/17/20 09:00 12/17/20 09:06 I have reviewed the current psychotropics carefully including drug interactions. Risk benefit ratio favors no change other than as noted in my dictated progress note. Diagnosis: Problems: (1) Major neurocognitive disorder (2) Impulse control disorder, unspecified (3) Anxiety disorder, unspecified (4) Dementia, vascular, with depression (5) Dementia, vascular, with delusions (6) Dementia in Alzheimer's disease with depression (7) Dementia in Alzheimer's disease with delusions (8) Dementia of the Alzheimer's type with early onset with behavioral disturban DONA Garcia MD Dec 17, 2020 20:58
[2020-12-18 06:51] VITALS: BP 176/80
[2020-12-18] MEDS: ASPIRIN CHEWABLE 81 MG TABLET. PO SCH (08:00)
[2020-12-18] MEDS: amLODIPine BESYLATE 10 MG TABLET PO SCH (08:00)
[2020-12-18] MEDS: SERTRALINE 25 MG TABLET. PO SCH (08:00)
[2020-12-18] MEDS: TAMSULOSIN 0.4 MG CAP.ER.24H. PO SCH (08:00)
[2020-12-18] MEDS: LACTOBACILLUS RHAMNOSUS GG 1 CAPSULE. PO SCH ×2 (08:00→20:55)
[2020-12-18] MEDS: THIAMINE 100 MG TABLET. PO SCH ×2 (08:01→20:55)
[2020-12-18] MEDS: CARVEDILOL 6.25 MG TABLET PO SCH ×2 (08:01→17:33)
[2020-12-18] MEDS: FOLIC ACID 1 MG TABLET PO SCH (08:01)
[2020-12-18] MEDS: QUEtiapine 25 MG TABLET. PO SCH ×2 (08:01→20:55)
[2020-12-18] MEDS: MULTIVITAMIN with MINERAL TABLET. PO SCH (08:01)
[2020-12-18] MEDS: LIDOCAINE (700MG/PATCH) PATCH. TD SCH (08:01)
--- NOTE | 2020-12-18 08:12 | PDOC ---
Exam Note: Gus Note: This note is a late entry for 12/17/2020 covers elements not covered in my initial note. Subjective: The patient was reviewed on telehealth rounds in the evening of 12/17/2020 with Charmaine OVIEDO. Discussed with nursing staff, reviewed the chart. The patient slept 5-1/2 hours previous night. Overall he has been intermittently agitated, specifically with showers. He did receive Seroquel in the morning, restless in the evening but better than before. Review of Systems: No CV, , pulmonary, eye, ENT system symptoms on review. Mental Status Exam: The patient is oriented to himself. Insight and judgment, recent and remote memory, attention and concentration, fund of knowledge is poor consistent with his diagnosis mentioned in my initial note. Laboratory Data: Reviewed. Impression: Major neurocognitive disorder Alzheimer vascular with delusion, depression, behavioral disturbance. Anxiety disorder unspecified. Impulse control disorder unspecified. Plan: Continue current psychotropics. Assessment: Vital Signs/I&O: Vital Signs Date Time Temp Pulse Resp B/P (MAP) Pulse Ox O2 Delivery O2 Flow Rate FiO2 12/18/20 08:01 102 176/80 12/18/20 06:51 97.4 18 95 12/16/20 16:43 Room Air I & O 12/17/20 12/17/20 12/18/20 15:00 23:00 07:00 Intake Total 600 ml 600 ml Balance 600 ml 600 ml Current Medications: Meds: Current Medications Medications (Trade) Dose Ordered Sig/Evaristo Route PRN Reason Start Time Stop Time Status Last Admin Dose Admin Acetaminophen (Tylenol) 650 mg PRN Q6HRS PRN PO MILD PAIN / TEMP > 100.3'F 11/25/20 18:00 Multi-Ingredient Ointment (Analgesic [place]) 1 addison PRN QID PRN TP MUSCLE PAIN 11/25/20 18:00 Al Hydroxide/Mg Hydroxide (Mylanta Plus Xs) 15 ml PRN AFTMEALHC PRN PO DYSPEPSIA 11/25/20 18:00 12/10/20 18:52 Magnesium Hydroxide (Milk Of Magnesia) 2,400 mg PRN QHS PRN PO CONSTIPATION 11/25/20 18:00 12/13/20 08:36 Amlodipine Besylate (Norvasc) 10 mg DAILY PO 11/26/20 09:00 12/18/20 08:00 Aspirin (Aspirin Chewable) 81 mg DAILY PO 11/26/20 09:00 12/18/20 08:00 Carvedilol (Coreg) 6.25 mg BIDWMEALS PO 11/25/20 18:30 12/18/20 08:01 Lisinopril (Prinivil) 10 mg DAILY PO 11/26/20 09:00 11/26/20 16:16 DC Quetiapine Fumarate (SEROquel) 25 mg QHS PO 11/25/20 21:00 12/17/20 20:52 Tamsulosin HCl (Flomax) 0.4 mg DAILY PO 11/26/20 09:00 12/18/20 08:00 Amoxicillin (Amoxil) 500 mg [id number] PO 11/25/20 21:00 12/02/20 14:01 DC 12/02/20 14:15 Atorvastatin Calcium (Lipitor) 40 mg QHS PO 11/25/20 21:00 12/17/20 20:52 Folic Acid (Folic Acid) 1 mg DAILY PO 11/26/20 09:00 12/18/20 08:01 Lidocaine (Lidoderm) 1 patch DAILY TD 11/26/20 09:00 12/18/20 08:01 Multivitamins/ Calcium (Thera-M Plus) 1 tab DAILY PO 11/26/20 09:00 12/18/20 08:01 Thiamine HCl (Vitamin B-1) 100 mg BID PO 11/25/20 21:00 12/18/20 08:01 Olanzapine (ZyPREXA ZYDIS) 2.5 mg PRN Q2HR PRN PO PSYCHOSIS 11/25/20 21:15 12/17/20 17:29 Trazodone HCl (Desyrel) 50 mg PRN QHS PRN PO INSOMNIA, MAY REPEAT IN 1HR 11/25/20 21:15 12/17/20 20:52 Mirtazapine (Remeron) 7.5 mg QHS PO 11/26/20 21:00 11/28/20 12:23 DC 11/27/20 20:00 Lactobacillus Rhamnosus (Culturelle) 1 cap BID PO 11/27/20 09:00 12/18/20 08:00 Sertraline HCl (Zoloft) 25 mg DAILY PO 11/28/20 09:00 11/30/20 09:01 DC 11/30/20 08:39 Sertraline HCl (Zoloft) 50 mg DAILY PO 12/01/20 09:00 12/03/20 11:00 DC 12/03/20 08:05 Mirtazapine (Remeron) 15 mg QHS PO 11/28/20 21:00 11/29/20 18:47 DC 11/28/20 19:38 Hydroxyzine HCl (Atarax) 25 mg PRN Q2HR PRN PO ABDOMINAL CRAMPS 11/28/20 21:45 12/03/20 02:37 Lorazepam (Ativan) 0.5 mg PRN Q4HRS PRN PO ANXIETY / AGITATION 11/28/20 21:45 11/29/20 21:45 DC Amitriptyline HCl (Elavil) 25 mg QHS PO 11/29/20 21:00 12/17/20 20:52 Melatonin (Melatonin) 3 mg QHS PO 11/29/20 21:00 12/17/20 20:51 Sertraline HCl (Zoloft) 75 mg DAILY PO 12/04/20 09:00 12/18/20 08:00 Divalproex Sodium (Depakote Er) 500 mg QHS PO 12/02/20 21:00 12/05/20 12:29 DC 12/04/20 20:08 Divalproex Sodium (Depakote Er) 1,000 mg QHS PO 12/05/20 21:00 12/17/20 20:51 Quetiapine Fumarate (SEROquel) 12.5 mg DAILY PO 12/17/20 09:00 12/18/20 08:01 Current Medications Medications (Trade) Dose Ordered Sig/Evaristo Route PRN Reason Start Time Stop Time Status Last Admin Dose Admin Quetiapine Fumarate (SEROquel) 12.5 mg DAILY PO 12/17/20 09:00 12/18/20 08:01 I have reviewed the current psychotropics carefully including drug interactions. Risk benefit ratio favors no change other than as noted in my dictated progress note. Diagnosis: Problems: (1) Major neurocognitive disorder (2) Impulse control disorder, unspecified (3) Anxiety disorder, unspecified (4) Dementia, vascular, with depression (5) Dementia, vascular, with delusions (6) Dementia in Alzheimer's disease with depression (7) Dementia in Alzheimer's disease with delusions (8) Dementia of the Alzheimer's type with early onset with behavioral disturbance DONA BOTELLO MD Dec 18, 2020 08:12
[2020-12-18 15:48] VITALS: BP 137/77
--- NOTE | 2020-12-18 16:22 | NUR ---
Pt up adl in halls. Wandering in others rooms but has been redirectable. Pleasantly confused. Compliant with meds and cares.
--- NOTE | 2020-12-18 20:53 | PDOC ---
Exam Note: Gus Note: Please also refer to the separate dictated note~for this date of service dictated separately.~Patient seen individually. Discussed the patient with Nursing staff reviewed the chart.~Reviewed interim history and current functioning. Reviewed vital signs,~Labs/ Radiology~and current medications noted below. Continue current treatment with the changes noted in the dictated addendum note Assessment: Vital Signs/I&O: Vital Signs Date Time Temp Pulse Resp B/P (MAP) Pulse Ox O2 Delivery O2 Flow Rate FiO2 12/18/20 17:33 81 137/77 12/18/20 15:48 97.9 17 97 12/16/20 16:43 Room Air I & O 12/17/20 12/17/20 12/18/20 15:00 23:00 07:00 Intake Total 600 ml 600 ml Balance 600 ml 600 ml Current Medications: Meds: Current Medications Medications (Trade) Dose Ordered Sig/Evaristo Route PRN Reason Start Time Stop Time Status Last Admin Dose Admin Acetaminophen (Tylenol) 650 mg PRN Q6HRS PRN PO MILD PAIN / TEMP > 100.3'F 11/25/20 18:00 Multi-Ingredient Ointment (Analgesic [place]) 1 addison PRN QID PRN TP MUSCLE PAIN 11/25/20 18:00 Al Hydroxide/Mg Hydroxide (Mylanta Plus Xs) 15 ml PRN AFTMEALHC PRN PO DYSPEPSIA 11/25/20 18:00 12/10/20 18:52 Magnesium Hydroxide (Milk Of Magnesia) 2,400 mg PRN QHS PRN PO CONSTIPATION 11/25/20 18:00 12/13/20 08:36 Amlodipine Besylate (Norvasc) 10 mg DAILY PO 11/26/20 09:00 12/18/20 08:00 Aspirin (Aspirin Chewable) 81 mg DAILY PO 11/26/20 09:00 12/18/20 08:00 Carvedilol (Coreg) 6.25 mg BIDWMEALS PO 11/25/20 18:30 12/18/20 17:33 Lisinopril (Prinivil) 10 mg DAILY PO 11/26/20 09:00 11/26/20 16:16 DC Quetiapine Fumarate (SEROquel) 25 mg QHS PO 11/25/20 21:00 12/17/20 20:52 Tamsulosin HCl (Flomax) 0.4 mg DAILY PO 11/26/20 09:00 12/18/20 08:00 Amoxicillin (Amoxil) 500 mg [id number] PO 11/25/20 21:00 12/02/20 14:01 DC 12/02/20 14:15 Atorvastatin Calcium (Lipitor) 40 mg QHS PO 11/25/20 21:00 12/17/20 20:52 Folic Acid (Folic Acid) 1 mg DAILY PO 11/26/20 09:00 12/18/20 08:01 Lidocaine (Lidoderm) 1 patch DAILY TD 11/26/20 09:00 12/18/20 08:01 Multivitamins/ Calcium (Thera-M Plus) 1 tab DAILY PO 11/26/20 09:00 12/18/20 08:01 Thiamine HCl (Vitamin B-1) 100 mg BID PO 11/25/20 21:00 12/18/20 08:01 Olanzapine (ZyPREXA ZYDIS) 2.5 mg PRN Q2HR PRN PO PSYCHOSIS 11/25/20 21:15 12/18/20 17:33 Trazodone HCl (Desyrel) 50 mg PRN QHS PRN PO INSOMNIA, MAY REPEAT IN 1HR 11/25/20 21:15 12/17/20 20:52 Mirtazapine (Remeron) 7.5 mg QHS PO 11/26/20 21:00 11/28/20 12:23 DC 11/27/20 20:00 Lactobacillus Rhamnosus (Culturelle) 1 cap BID PO 11/27/20 09:00 12/18/20 08:00 Sertraline HCl (Zoloft) 25 mg DAILY PO 11/28/20 09:00 11/30/20 09:01 DC 11/30/20 08:39 Sertraline HCl (Zoloft) 50 mg DAILY PO 12/01/20 09:00 12/03/20 11:00 DC 12/03/20 08:05 Mirtazapine (Remeron) 15 mg QHS PO 11/28/20 21:00 11/29/20 18:47 DC 11/28/20 19:38 Hydroxyzine HCl (Atarax) 25 mg PRN Q2HR PRN PO ABDOMINAL CRAMPS 11/28/20 21:45 12/03/20 02:37 Lorazepam (Ativan) 0.5 mg PRN Q4HRS PRN PO ANXIETY / AGITATION 11/28/20 21:45 11/29/20 21:45 DC Amitriptyline HCl (Elavil) 25 mg QHS PO 11/29/20 21:00 12/17/20 20:52 Melatonin (Melatonin) 3 mg QHS PO 11/29/20 21:00 12/17/20 20:51 Sertraline HCl (Zoloft) 75 mg DAILY PO 12/04/20 09:00 12/18/20 08:00 Divalproex Sodium (Depakote Er) 500 mg QHS PO 12/02/20 21:00 12/05/20 12:29 DC 12/04/20 20:08 Divalproex Sodium (Depakote Er) 1,000 mg QHS PO 12/05/20 21:00 12/17/20 20:51 Quetiapine Fumarate (SEROquel) 12.5 mg DAILY PO 12/17/20 09:00 12/18/20 16:46 DC 12/18/20 08:01 Quetiapine Fumarate (SEROquel) 12.5 mg BID92 PO 12/19/20 09:00 I have reviewed the current psychotropics carefully including drug interactions. Risk benefit ratio favors no change other than as noted in my dictated progress note. Diagnosis: Problems: (1) Major neurocognitive disorder (2) Impulse control disorder, unspecified (3) Anxiety disorder, unspecified (4) Dementia, vascular, with depression (5) Dementia, vascular, with delusions (6) Dementia in Alzheimer's disease with depression (7) Dementia in Alzheimer's disease with delusions (8) Dementia of the Alzheimer's type with early onset with behavioral disturbance DONA BOTELLO MD Dec 18, 2020 20:53
[2020-12-18] MEDS: DIVALPROEX ER 500 MG TAB.ER.24H PO SCH (20:55)
[2020-12-18] MEDS: MELATONIN 3 MG TABLET PO SCH (20:55)
[2020-12-18] MEDS: AMITRIPTYLINE HCL 25 MG TABLET PO SCH (20:55)
[2020-12-18] MEDS: traZODone 50 MG TABLET. PO PRN (20:56)
[2020-12-18] MEDS: ATORVASTATIN CALCIUM 20 MG TABLET PO SCH (20:56)
--- NOTE | 2020-12-18 21:00 | NUR ---
Patient has been calm and cooperative. He is compliant with medications. Patient spent time watching football game on TV with peers. No adverse behaviors noted this shift..
[2020-12-19 06:17] VITALS: BP 149/84
--- NOTE | 2020-12-19 06:43 | NUR ---
Patient is walking in the hallway looking for his sister, who he thinks is named "Francisca". He stated he "just saw her in the other room". Patient slightly irritated that his sister is not here. He is arguing with nurse about where he is.
--- NOTE | 2020-12-19 08:35 | PDOC ---
Exam Note: Gus Note: This note is a late entry for 12/18/2020 covers elements not covered in my initial note. Subjective: The patient was reviewed on telehealth rounds in the evening of 12/18/2020 with Charmaine OVIEDO. Discussed with nursing staff, reviewed the chart. The patient slept 6-3/4 hours previous night. Overall he is doing better but by the early evening he gets more agitated, anxious, restless, exit seeking. Review of Systems: No CV, , pulmonary, eye, ENT system symptoms on review. Reliability poor. Mental Status Exam: The patient is oriented to himself. Insight and judgment, recent and remote memory, attention and concentration, fund of knowledge is poor consistent with his diagnosis. Laboratory Data: Reviewed. Impression: Major neurocognitive disorder Alzheimer vascular with delusion, depression, behavioral disturbance. Anxiety disorder unspecified. Impulse control disorder unspecified. Plan: Start Seroquel 12.5 mg 1 p.m. Rest unchanged from initial note. Assessment: Vital Signs/I&O: Vital Signs Date Time Temp Pulse Resp B/P (MAP) Pulse Ox O2 Delivery O2 Flow Rate FiO2 12/19/20 06:17 97.5 66 20 149/84 (105) 98 Room Air I & O 12/18/20 12/18/20 12/19/20 15:00 23:00 07:00 Intake Total 720 ml 360 ml 120 ml Balance 720 ml 360 ml 120 ml Current Medications: Meds: Current Medications Medications (Trade) Dose Ordered Sig/Evaristo Route PRN Reason Start Time Stop Time Status Last Admin Dose Admin Acetaminophen (Tylenol) 650 mg PRN Q6HRS PRN PO MILD PAIN / TEMP > 100.3'F 11/25/20 18:00 Multi-Ingredient Ointment (Analgesic [place]) 1 addison PRN QID PRN TP MUSCLE PAIN 11/25/20 18:00 Al Hydroxide/Mg Hydroxide (Mylanta Plus Xs) 15 ml PRN AFTMEALHC PRN PO DYSPEPSIA 11/25/20 18:00 12/10/20 18:52 Magnesium Hydroxide (Milk Of Magnesia) 2,400 mg PRN QHS PRN PO CONSTIPATION 11/25/20 18:00 12/13/20 08:36 Amlodipine Besylate (Norvasc) 10 mg DAILY PO 11/26/20 09:00 12/18/20 08:00 Aspirin (Aspirin Chewable) 81 mg DAILY PO 11/26/20 09:00 12/18/20 08:00 Carvedilol (Coreg) 6.25 mg BIDWMEALS PO 11/25/20 18:30 12/18/20 17:33 Lisinopril (Prinivil) 10 mg DAILY PO 11/26/20 09:00 11/26/20 16:16 DC Quetiapine Fumarate (SEROquel) 25 mg QHS PO 11/25/20 21:00 12/18/20 20:55 Tamsulosin HCl (Flomax) 0.4 mg DAILY PO 11/26/20 09:00 12/18/20 08:00 Amoxicillin (Amoxil) 500 mg [id number] PO 11/25/20 21:00 12/02/20 14:01 DC 12/02/20 14:15 Atorvastatin Calcium (Lipitor) 40 mg QHS PO 11/25/20 21:00 12/18/20 20:56 Folic Acid (Folic Acid) 1 mg DAILY PO 11/26/20 09:00 12/18/20 08:01 Lidocaine (Lidoderm) 1 patch DAILY TD 11/26/20 09:00 12/18/20 08:01 Multivitamins/ Calcium (Thera-M Plus) 1 tab DAILY PO 11/26/20 09:00 12/18/20 08:01 Thiamine HCl (Vitamin B-1) 100 mg BID PO 11/25/20 21:00 12/18/20 20:55 Olanzapine (ZyPREXA ZYDIS) 2.5 mg PRN Q2HR PRN PO PSYCHOSIS 11/25/20 21:15 12/18/20 17:33 Trazodone HCl (Desyrel) 50 mg PRN QHS PRN PO INSOMNIA, MAY REPEAT IN 1HR 11/25/20 21:15 12/18/20 20:56 Mirtazapine (Remeron) 7.5 mg QHS PO 11/26/20 21:00 11/28/20 12:23 DC 11/27/20 20:00 Lactobacillus Rhamnosus (Culturelle) 1 cap BID PO 11/27/20 09:00 12/18/20 20:55 Sertraline HCl (Zoloft) 25 mg DAILY PO 11/28/20 09:00 11/30/20 09:01 DC 11/30/20 08:39 Sertraline HCl (Zoloft) 50 mg DAILY PO 12/01/20 09:00 12/03/20 11:00 DC 12/03/20 08:05 Mirtazapine (Remeron) 15 mg QHS PO 11/28/20 21:00 11/29/20 18:47 DC 11/28/20 19:38 Hydroxyzine HCl (Atarax) 25 mg PRN Q2HR PRN PO ABDOMINAL CRAMPS 11/28/20 21:45 12/03/20 02:37 Lorazepam (Ativan) 0.5 mg PRN Q4HRS PRN PO ANXIETY / AGITATION 11/28/20 21:45 11/29/20 21:45 DC Amitriptyline HCl (Elavil) 25 mg QHS PO 11/29/20 21:00 12/18/20 20:55 Melatonin (Melatonin) 3 mg QHS PO 11/29/20 21:00 12/18/20 20:55 Sertraline HCl (Zoloft) 75 mg DAILY PO 12/04/20 09:00 12/18/20 08:00 Divalproex Sodium (Depakote Er) 500 mg QHS PO 12/02/20 21:00 12/05/20 12:29 DC 12/04/20 20:08 Divalproex Sodium (Depakote Er) 1,000 mg QHS PO 12/05/20 21:00 12/18/20 20:55 Quetiapine Fumarate (SEROquel) 12.5 mg DAILY PO 12/17/20 09:00 12/18/20 16:46 DC 12/18/20 08:01 Quetiapine Fumarate (SEROquel) 12.5 mg BID92 PO 12/19/20 09:00 I have reviewed the current psychotropics carefully including drug interactions. Risk benefit ratio favors no change other than as noted in my dictated progress note. Diagnosis: Problems: (1) Major neurocognitive disorder (2) Impulse control disorder, unspecified (3) Anxiety disorder, unspecified (4) Dementia, vascular, with depression (5) Dementia, vascular, with delusions (6) Dementia in Alzheimer's disease with depression (7) Dementia in Alzheimer's disease with delusions (8) Dementia of the Alzheimer's type with early onset with behavioral disturbance DONA BOTELLO MD Dec 19, 2020 08:35
[2020-12-19] MEDS: MULTIVITAMIN with MINERAL TABLET. PO SCH (09:36)
[2020-12-19] MEDS: SERTRALINE 25 MG TABLET. PO SCH (09:36)
[2020-12-19] MEDS: LACTOBACILLUS RHAMNOSUS GG 1 CAPSULE. PO SCH ×2 (09:36→19:49)
[2020-12-19] MEDS: amLODIPine BESYLATE 10 MG TABLET PO SCH (09:37)
[2020-12-19] MEDS: THIAMINE 100 MG TABLET. PO SCH ×2 (09:37→19:49)
[2020-12-19] MEDS: CARVEDILOL 6.25 MG TABLET PO SCH ×2 (09:37→16:54)
[2020-12-19] MEDS: ASPIRIN CHEWABLE 81 MG TABLET. PO SCH (09:37)
[2020-12-19] MEDS: FOLIC ACID 1 MG TABLET PO SCH (09:37)
[2020-12-19] MEDS: TAMSULOSIN 0.4 MG CAP.ER.24H. PO SCH (09:37)
[2020-12-19] MEDS: LIDOCAINE (700MG/PATCH) PATCH. TD SCH (09:38)
[2020-12-19] MEDS: QUEtiapine 25 MG TABLET. PO SCH ×3 (09:38→19:49)
--- NOTE | 2020-12-19 12:09 | NUR ---
WEEKLY ACTIVITY THERAPY NOTE Date of Admission: 11/25/2020 Date of AT Assessment: 11/28/2020 Precipitating behaviors that initiated intake and admission: Patient was reported to be confused, agitated, delusional, hallucinating, removing IVs, and not cooperating with cares at [address] [facility]. Goal aimed: to increase engagement and socialization Initial Goal: Pt. will participate in at least one Activity Therapy group per day. Weekly progress towards goal: Group participation level: Weekly highlights: dancing during Bingo on Saturday morning- able to locate songs on his [place] card independently. Behaviors observed: seemed to be influenced by peers with discussion/ jokes about borderline inappropriate topics, easy to redirect, increased confusion this week, struggled to sit through groups: wandering, restless, asking how to leave Plan: no change to goal Beneficial adaptations:
--- NOTE | 2020-12-19 15:48 | NUR ---
Patient has been calm, delusional, and pleasantly confused throughout most of this shift. 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 Patient was redirected after a short conversation and escorted to the hallway. He has spent most of the morning wandering in the hallway, occasionally with another patient; he was asking for the stairs to the first floor, but was easily redirected. Patient attended afternoon group. Will continue to monitor and report to MD during rounds.
[2020-12-19 16:35] VITALS: BP 168/99
--- NOTE | 2020-12-19 17:30 | TX PLAN ---
Interdisciplinary Tx Plan Admission Information Nov 25, 2020 at 15:25 Legal Status (on Admission): Voluntary, Court Appointed Guardian, Court Appointed Conservat DPOA/Guardian Name: Maxwell Martinez- guardian Contact Verified Code Status: Full Code Allergies: Coded Allergies: No Known Drug Allergies (Unverified , 11/25/20) Estimated Length of Stay: 14 Diagnoses Primary Diagnosis: Major neurocognitive d/o, vascular, alzheimers with delusions, depresion, BD; Anxiety d/o unspecified; impulse control d/o Reasons for Admission: Aggressive, Delusions, Agitated, Alcohol Abuse, Sig. Change Sleep, Anxiety/Panic, Hallucinations, Combative, Confusion/Disoriented, Poor impulse control Problem in Patient's Words: Per Scottie, " Love and caring about her and my family." Per guardian, unsafe to live at home alone with level of confusion and memory impairment. Additional Admission Comments: Per intake record, hallucinating, delusional, aggressive during [facility] care, confused, restless, nonsensical speech, anxious, insomnia, poor safety, pulled out IV, uncooperative, agitated, and yelling out. Problems Active Problems: Confused Delsuional Hallucinating Wandering, intrusive, restless Poor sleep Inactive Problems: Adequate meal intake Compliant with meds Pt Strengths/Limitations Ability for [place]: Poor Cognitive Functioning/Ability: Poor Communication Skills/Ability: Fair Financial Resources: Fair Insight/Judgement: Poor Intellectual Ability: Fair Physical Health: Fair Social Skills: Fair Stability in Family: Poor Verbal Skills: Fair Discharge Criteria Discharge Criteria: Adequate arrangements @DC, Improved behavior, Improved mood/thought Preliminary Discharge Plan Preliminary DC Plan: Placement Needed Special Precautions Special Precautions: Agitation/Assault Fall Risk: High Initial D/C Plan Scottie will need placement. [facility] is in the process of determining if a medicaid applincation will need to be filed to pay for skilled nursing care. Identified Discharge Needs: Scottie will need placement due to memory impairment. Currently Utilized Resources Currently Utilized Resources/P: PCP Referrals Community Resources: Placement referral PCP Psychiatry if available Identified Problems/Hx/Goals Objectives/Short-Term Goals Short Term Goals: Control abnormal behavior, Dec. Aggression, Dec. Anxiety/Panic, Dec. Hallucination/Delus, Dec. Outbursts, Medication Stabilization, Monitor Med Effects Short Term Goals in Patient's: Melvin Rubin, "I hope to conquer even better and us get along." Interventions/Frequency Staff Interventions/Frequency&: Nursing to provide routine safety checks, medication administration, and adl support. Psychiatry thre times weekly. SW visits twice weekly. Recreational and SW groups as Scottie will participate. 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 Social: Scottie enjoys basketball, swimming, and country music. Education: Scottie reported graduating high school. Community Follow-up PCP Psychiatry if available Placement referral Community Provider/Family Inpu: Treatment team meeting was held on 11/28/20. counselor marriage and family of treatment plan was enterred on 11/29/20. felix Arreola, declined to be involed in team meetings but does want to know any recommendations concerning Scottie. Treatment Plan Explained Patient/Human Resources Representative had this treatment plan explained to him/her as indicated by the signature below and has been given the opportunity to ask questions and make suggestions: Date: Patient/Human Resources Representative Signature: Status Update Update Pt is eating 100% of meals and sleeping on average 6 hours. 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 Pt is medication compliant and can be redirected if done with purpose for the pt. At this time, referrals are being sent; however, pt insurance is still not fully finalized. SW will work with pt guardian on placement in hopes to have pt discharge not later than Saturday. BA MUÑIZ Dec 19, 2020 17:30
[2020-12-19] MEDS: DIVALPROEX ER 500 MG TAB.ER.24H PO SCH (19:49)
[2020-12-19] MEDS: AMITRIPTYLINE HCL 25 MG TABLET PO SCH (19:49)
[2020-12-19] MEDS: MELATONIN 3 MG TABLET PO SCH (19:49)
[2020-12-19] MEDS: ATORVASTATIN CALCIUM 20 MG TABLET PO SCH (19:50)
--- NOTE | 2020-12-19 20:59 | PDOC ---
Exam Note: Gus Note: Please also refer to the separate dictated note~for this date of service dictated separately.~Patient seen individually. Discussed the patient with Nursing staff reviewed the chart.~Reviewed interim history and current functioning. Reviewed vital signs,~Labs/ Radiology~and current medications noted below. Continue current treatment with the changes noted in the dictated addendum note Assessment: Vital Signs/I&O: Vital Signs Date Time Temp Pulse Resp B/P (MAP) Pulse Ox O2 Delivery O2 Flow Rate FiO2 12/19/20 16:54 84 168/99 12/19/20 16:35 97.9 18 98 12/19/20 06:17 Room Air I & O 12/18/20 12/18/20 12/19/20 15:00 23:00 07:00 Intake Total 720 ml 360 ml 120 ml Balance 720 ml 360 ml 120 ml Current Medications: Meds: Current Medications Medications (Trade) Dose Ordered Sig/Evaristo Route PRN Reason Start Time Stop Time Status Last Admin Dose Admin Acetaminophen (Tylenol) 650 mg PRN Q6HRS PRN PO MILD PAIN / TEMP > 100.3'F 11/25/20 18:00 Multi-Ingredient Ointment (Analgesic [place]) 1 addison PRN QID PRN TP MUSCLE PAIN 11/25/20 18:00 Al Hydroxide/Mg Hydroxide (Mylanta Plus Xs) 15 ml PRN AFTMEALHC PRN PO DYSPEPSIA 11/25/20 18:00 12/10/20 18:52 Magnesium Hydroxide (Milk Of Magnesia) 2,400 mg PRN QHS PRN PO CONSTIPATION 11/25/20 18:00 12/13/20 08:36 Amlodipine Besylate (Norvasc) 10 mg DAILY PO 11/26/20 09:00 12/19/20 09:37 Aspirin (Aspirin Chewable) 81 mg DAILY PO 11/26/20 09:00 12/19/20 09:37 Carvedilol (Coreg) 6.25 mg BIDWMEALS PO 11/25/20 18:30 12/19/20 16:54 Lisinopril (Prinivil) 10 mg DAILY PO 11/26/20 09:00 11/26/20 16:16 DC Quetiapine Fumarate (SEROquel) 25 mg QHS PO 11/25/20 21:00 12/19/20 19:49 Tamsulosin HCl (Flomax) 0.4 mg DAILY PO 11/26/20 09:00 12/19/20 09:37 Amoxicillin (Amoxil) 500 mg [id number] PO 11/25/20 21:00 12/02/20 14:01 DC 12/02/20 14:15 Atorvastatin Calcium (Lipitor) 40 mg QHS PO 11/25/20 21:00 12/19/20 19:50 Folic Acid (Folic Acid) 1 mg DAILY PO 11/26/20 09:00 12/19/20 09:37 Lidocaine (Lidoderm) 1 patch DAILY TD 11/26/20 09:00 12/19/20 09:38 Multivitamins/ Calcium (Thera-M Plus) 1 tab DAILY PO 11/26/20 09:00 12/19/20 09:36 Thiamine HCl (Vitamin B-1) 100 mg BID PO 11/25/20 21:00 12/19/20 19:49 Olanzapine (ZyPREXA ZYDIS) 2.5 mg PRN Q2HR PRN PO PSYCHOSIS 11/25/20 21:15 12/18/20 17:33 Trazodone HCl (Desyrel) 50 mg PRN QHS PRN PO INSOMNIA, MAY REPEAT IN 1HR 11/25/20 21:15 12/18/20 20:56 Mirtazapine (Remeron) 7.5 mg QHS PO 11/26/20 21:00 11/28/20 12:23 DC 11/27/20 20:00 Lactobacillus Rhamnosus (Culturelle) 1 cap BID PO 11/27/20 09:00 12/19/20 19:49 Sertraline HCl (Zoloft) 25 mg DAILY PO 11/28/20 09:00 11/30/20 09:01 DC 11/30/20 08:39 Sertraline HCl (Zoloft) 50 mg DAILY PO 12/01/20 09:00 12/03/20 11:00 DC 12/03/20 08:05 Mirtazapine (Remeron) 15 mg QHS PO 11/28/20 21:00 11/29/20 18:47 DC 11/28/20 19:38 Hydroxyzine HCl (Atarax) 25 mg PRN Q2HR PRN PO ABDOMINAL CRAMPS 11/28/20 21:45 12/03/20 02:37 Lorazepam (Ativan) 0.5 mg PRN Q4HRS PRN PO ANXIETY / AGITATION 11/28/20 21:45 11/29/20 21:45 DC Amitriptyline HCl (Elavil) 25 mg QHS PO 11/29/20 21:00 12/19/20 19:49 Melatonin (Melatonin) 3 mg QHS PO 11/29/20 21:00 12/19/20 19:49 Sertraline HCl (Zoloft) 75 mg DAILY PO 12/04/20 09:00 12/19/20 09:36 Divalproex Sodium (Depakote Er) 500 mg QHS PO 12/02/20 21:00 12/05/20 12:29 DC 12/04/20 20:08 Divalproex Sodium (Depakote Er) 1,000 mg QHS PO 12/05/20 21:00 12/19/20 19:49 Quetiapine Fumarate (SEROquel) 12.5 mg DAILY PO 12/17/20 09:00 12/18/20 16:46 DC 12/18/20 08:01 Quetiapine Fumarate (SEROquel) 12.5 mg [id number] PO 12/19/20 09:00 12/19/20 13:58 Current Medications Medications (Trade) Dose Ordered Sig/Evaristo Route PRN Reason Start Time Stop Time Status Last Admin Dose Admin Quetiapine Fumarate (SEROquel) 12.5 mg [id number] PO 12/19/20 09:00 12/19/20 13:58 I have reviewed the current psychotropics carefully including drug interactions. Risk benefit ratio favors no change other than as noted in my dictated progress note. Diagnosis: Problems: (1) Major neurocognitive disorder (2) Impulse control disorder, unspecified (3) Anxiety disorder, unspecified (4) Dementia, vascular, with depression (5) Dementia, vascular, with delusions (6) Dementia in Alzheimer's disease with depression (7) Dementia in Alzheimer's disease with delusions (8) Dementia of the Alzheimer's type with early onset with behavioral disturbance DONA BOTELLO MD Dec 19, 2020 20:59
[2020-12-19] MEDS: traZODone 50 MG TABLET. PO PRN (22:01)
--- NOTE | 2020-12-19 22:07 | NUR ---
Pt is restless, delusional, and intrusive. Pt repeatedly getting up from bed and wandering in room, interrupting roommate's sleep. Pt believes he needs to get to work, increasingly irritable with redirection. Pt assisted x2 to [facility] to deescalate. Pt checking doors and exit seeking. PRN trazodone and zyprexa given as indicated.
[2020-12-20 06:05] VITALS: BP 151/91
--- NOTE | 2020-12-20 08:26 | PDOC ---
Exam Note: Gus Note: This note is a late entry for 12/19/2020 covers elements not covered in my initial note. Subjective: The patient was seen face to face in the morning of 12/19/2020 for a treatment team meeting with Dolores Contreras, Mell Larios and Denise (social welfare research worker), Mikayla Fiore, activity therapy and Cm OVIEDO. Discussed with nursing staff, reviewed the chart. The patient slept 5-3/4 hours previous night. Overall he remains confused, somewhat delusional. 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 Review of Systems: No CV, , pulmonary, eye, ENT system symptoms on review. Reliability poor. Mental Status Exam: The patient is oriented to himself. Insight and judgment, recent and remote memory, attention and concentration, fund of knowledge is poor consistent with his diagnosis. Laboratory Data: Reviewed. Impression: Major neurocognitive disorder Alzheimer vascular with delusion, depression, behavioral disturbance. Anxiety disorder unspecified. Impulse control disorder unspecified. Plan: Rest unchanged from initial note. Assessment: Vital Signs/I&O: Vital Signs Date Time Temp Pulse Resp B/P (MAP) Pulse Ox O2 Delivery O2 Flow Rate FiO2 12/20/20 06:05 97.8 62 18 151/91 (111) 98 Room Air I & O 12/19/20 12/19/20 12/20/20 15:00 23:00 07:00 Intake Total 840 ml 360 ml Balance 840 ml 360 ml Current Medications: Meds: Current Medications Medications (Trade) Dose Ordered Sig/Evaristo Route PRN Reason Start Time Stop Time Status Last Admin Dose Admin Acetaminophen (Tylenol) 650 mg PRN Q6HRS PRN PO MILD PAIN / TEMP > 100.3'F 11/25/20 18:00 Multi-Ingredient Ointment (Analgesic [place]) 1 addison PRN QID PRN TP MUSCLE PAIN 11/25/20 18:00 Al Hydroxide/Mg Hydroxide (Mylanta Plus Xs) 15 ml PRN AFTMEALHC PRN PO DYSPEPSIA 11/25/20 18:00 12/10/20 18:52 Magnesium Hydroxide (Milk Of Magnesia) 2,400 mg PRN QHS PRN PO CONSTIPATION 11/25/20 18:00 12/13/20 08:36 Amlodipine Besylate (Norvasc) 10 mg DAILY PO 11/26/20 09:00 12/19/20 09:37 Aspirin (Aspirin Chewable) 81 mg DAILY PO 11/26/20 09:00 12/19/20 09:37 Carvedilol (Coreg) 6.25 mg BIDWMEALS PO 11/25/20 18:30 12/19/20 16:54 Lisinopril (Prinivil) 10 mg DAILY PO 11/26/20 09:00 11/26/20 16:16 DC Quetiapine Fumarate (SEROquel) 25 mg QHS PO 11/25/20 21:00 12/19/20 19:49 Tamsulosin HCl (Flomax) 0.4 mg DAILY PO 11/26/20 09:00 12/19/20 09:37 Amoxicillin (Amoxil) 500 mg [id number] PO 11/25/20 21:00 12/02/20 14:01 DC 12/02/20 14:15 Atorvastatin Calcium (Lipitor) 40 mg QHS PO 11/25/20 21:00 12/19/20 19:50 Folic Acid (Folic Acid) 1 mg DAILY PO 11/26/20 09:00 12/19/20 09:37 Lidocaine (Lidoderm) 1 patch DAILY TD 11/26/20 09:00 12/19/20 09:38 Multivitamins/ Calcium (Thera-M Plus) 1 tab DAILY PO 11/26/20 09:00 12/19/20 09:36 Thiamine HCl (Vitamin B-1) 100 mg BID PO 11/25/20 21:00 12/19/20 19:49 Olanzapine (ZyPREXA ZYDIS) 2.5 mg PRN Q2HR PRN PO PSYCHOSIS 11/25/20 21:15 12/19/20 22:01 Trazodone HCl (Desyrel) 50 mg PRN QHS PRN PO INSOMNIA, MAY REPEAT IN 1HR 11/25/20 21:15 12/19/20 22:01 Mirtazapine (Remeron) 7.5 mg QHS PO 11/26/20 21:00 11/28/20 12:23 DC 11/27/20 20:00 Lactobacillus Rhamnosus (Culturelle) 1 cap BID PO 11/27/20 09:00 12/19/20 19:49 Sertraline HCl (Zoloft) 25 mg DAILY PO 11/28/20 09:00 11/30/20 09:01 DC 11/30/20 08:39 Sertraline HCl (Zoloft) 50 mg DAILY PO 12/01/20 09:00 12/03/20 11:00 DC 12/03/20 08:05 Mirtazapine (Remeron) 15 mg QHS PO 11/28/20 21:00 11/29/20 18:47 DC 11/28/20 19:38 Hydroxyzine HCl (Atarax) 25 mg PRN Q2HR PRN PO ABDOMINAL CRAMPS 11/28/20 21:45 12/03/20 02:37 Lorazepam (Ativan) 0.5 mg PRN Q4HRS PRN PO ANXIETY / AGITATION 11/28/20 21:45 11/29/20 21:45 DC Amitriptyline HCl (Elavil) 25 mg QHS PO 11/29/20 21:00 12/19/20 19:49 Melatonin (Melatonin) 3 mg QHS PO 11/29/20 21:00 12/19/20 19:49 Sertraline HCl (Zoloft) 75 mg DAILY PO 12/04/20 09:00 12/19/20 09:36 Divalproex Sodium (Depakote Er) 500 mg QHS PO 12/02/20 21:00 12/05/20 12:29 DC 12/04/20 20:08 Divalproex Sodium (Depakote Er) 1,000 mg QHS PO 12/05/20 21:00 12/19/20 19:49 Quetiapine Fumarate (SEROquel) 12.5 mg DAILY PO 12/17/20 09:00 12/18/20 16:46 DC 12/18/20 08:01 Quetiapine Fumarate (SEROquel) 12.5 mg [id number] PO 12/19/20 09:00 12/19/20 13:58 Current Medications Medications (Trade) Dose Ordered Sig/Evaristo Route PRN Reason Start Time Stop Time Status Last Admin Dose Admin Quetiapine Fumarate (SEROquel) 12.5 mg [id number] PO 12/19/20 09:00 12/19/20 13:58 I have reviewed the current psychotropics carefully including drug interactions. Risk benefit ratio favors no change other than as noted in my dictated progress note. Diagnosis: Problems: (1) Major neurocognitive disorder (2) Impulse control disorder, unspecified (3) Anxiety disorder, unspecified (4) Dementia, vascular, with depression (5) Dementia, vascular, with delusions (6) Dementia in Alzheimer's disease with depression (7) Dementia in Alzheimer's disease with delusions (8) Dementia of the Alzheimer's type with early onset with behavioral disturbance DONA BOTELLO MD Dec 20, 2020 08:26
[2020-12-20] MEDS: LACTOBACILLUS RHAMNOSUS GG 1 CAPSULE. PO SCH ×2 (08:27→20:04)
[2020-12-20] MEDS: FOLIC ACID 1 MG TABLET PO SCH (08:27)
[2020-12-20] MEDS: CARVEDILOL 6.25 MG TABLET PO SCH ×2 (08:27→18:08)
[2020-12-20] MEDS: SERTRALINE 25 MG TABLET. PO SCH (08:27)
[2020-12-20] MEDS: amLODIPine BESYLATE 10 MG TABLET PO SCH (08:27)
[2020-12-20] MEDS: ASPIRIN CHEWABLE 81 MG TABLET. PO SCH (08:28)
[2020-12-20] MEDS: MULTIVITAMIN with MINERAL TABLET. PO SCH (08:28)
[2020-12-20] MEDS: THIAMINE 100 MG TABLET. PO SCH ×2 (08:28→20:04)
[2020-12-20] MEDS: TAMSULOSIN 0.4 MG CAP.ER.24H. PO SCH (08:28)
[2020-12-20] MEDS: LIDOCAINE (700MG/PATCH) PATCH. TD SCH (08:28)
[2020-12-20] MEDS: QUEtiapine 25 MG TABLET. PO SCH ×3 (08:28→20:04)
[2020-12-20] MEDS: hydrOXYzine HCL 25 MG TABLET PO PRN (12:09)
[2020-12-20 16:12] VITALS: BP 136/85
--- NOTE | 2020-12-20 18:30 | NUR ---
Patient has been restless, exit seeking, wandering, and compliant with medications this shift. He was intrusive with peers this morning and became agitated with staff when they attempted to redirect him. Patient escorted to [facility] and provided prn medication per eMAR; compliant with medications. Patient spent the afternoon wandering the hallways, door checking, and compliant with staff. Will continue to monitor and report to oncoming staff.
[2020-12-20 19:06] LABS: BACTERIA,URINE 0 /HPF (0-FEW); BILIRUBIN,URINE NEG (NEG); CLARITY,URINE CLEAR; COLOR,URINE YELLOW; GLUCOSE,URINE NEG (NEG); NITRITE,URINE NEG (NEG); RBC,URINE 0 /HPF (0-2); UROBILINOGEN,URINE 0.2 mg/dL (0.2 mg/dL); WBC,URINE 0 /HPF (0-4)
[2020-12-20] MEDS: traZODone 50 MG TABLET. PO PRN (20:03)
[2020-12-20] MEDS: MELATONIN 3 MG TABLET PO SCH (20:04)
[2020-12-20] MEDS: DIVALPROEX ER 500 MG TAB.ER.24H PO SCH (20:04)
[2020-12-20] MEDS: ATORVASTATIN CALCIUM 20 MG TABLET PO SCH (20:05)
[2020-12-20] MEDS: AMITRIPTYLINE HCL 25 MG TABLET PO SCH (20:05)
--- NOTE | 2020-12-20 21:30 | PDOC ---
Exam Note: Gus Note: Please also refer to the separate dictated note~for this date of service dictated separately.~Patient seen individually. Discussed the patient with Nursing staff reviewed the chart.~Reviewed interim history and current functioning. Reviewed vital signs,~Labs/ Radiology~and current medications noted below. Continue current treatment with the changes noted in the dictated addendum note Assessment: Vital Signs/I&O: Vital Signs Date Time Temp Pulse Resp B/P (MAP) Pulse Ox O2 Delivery O2 Flow Rate FiO2 12/20/20 18:08 70 136/85 12/20/20 16:12 97.1 18 99 Room Air I & O 12/19/20 12/19/20 12/20/20 15:00 23:00 07:00 Intake Total 840 ml 360 ml Balance 840 ml 360 ml Labs: Laboratory Tests Test 12/20/20 18:40 Urine Collection Type Unknown Urine Color Yellow Urine Clarity Clear Urine pH 7.0 Urine Specific [place] 1.015 Urine Protein Neg (NEG-TRACE) Urine Glucose (UA) Neg mg/dL (NEG) Urine Ketones (Stick) Neg mg/dL (NEG) Urine Blood Neg (NEG) Urine Nitrite Neg (NEG) Urine Bilirubin Neg (NEG) Urine Urobilinogen Dipstick 0.2 mg/dL (0.2 mg/dL) Urine Leukocyte Esterase Neg (NEG) Urine RBC 0 /HPF (0-2) Urine WBC 0 /HPF (0-4) Urine Squamous Epithelial Cells None /LPF Urine Bacteria 0 /HPF (0-FEW) Current Medications: Meds: Laboratory Tests Test 12/20/20 18:40 Urine Collection Type Unknown Urine Color Yellow Urine Clarity Clear Urine pH 7.0 Urine Specific [place]eron 1.015 Urine Protein Neg Urine Glucose (UA) Neg mg/dL Urine Ketones (Stick) Neg mg/dL Urine Blood Neg Urine Nitrite Neg Urine Bilirubin Neg Urine Urobilinogen Dipstick 0.2 mg/dL Urine Leukocyte Esterase Neg Urine RBC 0 /HPF Urine WBC 0 /HPF Urine Squamous Epithelial Cells None /LPF Urine Bacteria 0 /HPF Current Medications Medications (Trade) Dose Ordered Sig/Evaristo Route PRN Reason Start Time Stop Time Status Last Admin Dose Admin Acetaminophen (Tylenol) 650 mg PRN Q6HRS PRN PO MILD PAIN / TEMP > 100.3'F 11/25/20 18:00 Multi-Ingredient Ointment (Analgesic [place]) 1 addison PRN QID PRN TP MUSCLE PAIN 11/25/20 18:00 Al Hydroxide/Mg Hydroxide (Mylanta Plus Xs) 15 ml PRN AFTMEALHC PRN PO DYSPEPSIA 11/25/20 18:00 12/10/20 18:52 Magnesium Hydroxide (Milk Of Magnesia) 2,400 mg PRN QHS PRN PO CONSTIPATION 11/25/20 18:00 12/13/20 08:36 Amlodipine Besylate (Norvasc) 10 mg DAILY PO 11/26/20 09:00 12/20/20 08:27 Aspirin (Aspirin Chewable) 81 mg DAILY PO 11/26/20 09:00 12/20/20 08:28 Carvedilol (Coreg) 6.25 mg BIDWMEALS PO 11/25/20 18:30 12/20/20 18:08 Lisinopril (Prinivil) 10 mg DAILY PO 11/26/20 09:00 11/26/20 16:16 DC Quetiapine Fumarate (SEROquel) 25 mg QHS PO 11/25/20 21:00 12/20/20 20:04 Tamsulosin HCl (Flomax) 0.4 mg DAILY PO 11/26/20 09:00 12/20/20 08:28 Amoxicillin (Amoxil) 500 mg [id number] PO 11/25/20 21:00 12/02/20 14:01 DC 12/02/20 14:15 Atorvastatin Calcium (Lipitor) 40 mg QHS PO 11/25/20 21:00 12/20/20 20:05 Folic Acid (Folic Acid) 1 mg DAILY PO 11/26/20 09:00 12/20/20 08:27 Lidocaine (Lidoderm) 1 patch DAILY TD 11/26/20 09:00 12/20/20 08:28 Multivitamins/ Calcium (Thera-M Plus) 1 tab DAILY PO 11/26/20 09:00 12/20/20 08:28 Thiamine HCl (Vitamin B-1) 100 mg BID PO 11/25/20 21:00 12/20/20 20:04 Olanzapine (ZyPREXA ZYDIS) 2.5 mg PRN Q2HR PRN PO PSYCHOSIS 11/25/20 21:15 12/20/20 20:03 Trazodone HCl (Desyrel) 50 mg PRN QHS PRN PO INSOMNIA, MAY REPEAT IN 1HR 11/25/20 21:15 12/20/20 20:03 Mirtazapine (Remeron) 7.5 mg QHS PO 11/26/20 21:00 11/28/20 12:23 DC 11/27/20 20:00 Lactobacillus Rhamnosus (Culturelle) 1 cap BID PO 11/27/20 09:00 12/20/20 20:04 Sertraline HCl (Zoloft) 25 mg DAILY PO 11/28/20 09:00 11/30/20 09:01 DC 11/30/20 08:39 Sertraline HCl (Zoloft) 50 mg DAILY PO 12/01/20 09:00 12/03/20 11:00 DC 12/03/20 08:05 Mirtazapine (Remeron) 15 mg QHS PO 11/28/20 21:00 11/29/20 18:47 DC 11/28/20 19:38 Hydroxyzine HCl (Atarax) 25 mg PRN Q2HR PRN PO ABDOMINAL CRAMPS 11/28/20 21:45 12/20/20 12:09 Lorazepam (Ativan) 0.5 mg PRN Q4HRS PRN PO ANXIETY / AGITATION 11/28/20 21:45 11/29/20 21:45 DC Amitriptyline HCl (Elavil) 25 mg QHS PO 11/29/20 21:00 12/20/20 20:05 Melatonin (Melatonin) 3 mg QHS PO 11/29/20 21:00 12/20/20 20:04 Sertraline HCl (Zoloft) 75 mg DAILY PO 12/04/20 09:00 12/20/20 08:27 Divalproex Sodium (Depakote Er) 500 mg QHS PO 12/02/20 21:00 12/05/20 12:29 DC 12/04/20 20:08 Divalproex Sodium (Depakote Er) 1,000 mg QHS PO 12/05/20 21:00 12/20/20 20:04 Quetiapine Fumarate (SEROquel) 12.5 mg DAILY PO 12/17/20 09:00 12/18/20 16:46 DC 12/18/20 08:01 Quetiapine Fumarate (SEROquel) 12.5 mg [id number] PO 12/19/20 09:00 12/20/20 14:13 I have reviewed the current psychotropics carefully including drug interactions. Risk benefit ratio favors no change other than as noted in my dictated progress note. Diagnosis: Problems: (1) Major neurocognitive disorder (2) Impulse control disorder, unspecified (3) Anxiety disorder, unspecified (4) Dementia, vascular, with depression (5) Dementia, vascular, with delusions (6) Dementia in Alzheimer's disease with depression (7) Dementia in Alzheimer's disease with delusions (8) Dementia of the Alzheimer's type with early onset with behavioral disturbance DONA BOTELLO MD Dec 20, 2020 21:30
--- NOTE | 2020-12-20 21:33 | NUR ---
Pt wandering hallway at time of assessment. Pt very busy and intrusive, often entering peers' rooms and disturbing them. Difficult to redirect. PRN zydis given as indicated. Pt took pills whole without difficulty.
[2020-12-21 06:04] VITALS: BP 142/88
[2020-12-21] MEDS: QUEtiapine 25 MG TABLET. PO SCH ×3 (08:35→19:35)
[2020-12-21] MEDS: LACTOBACILLUS RHAMNOSUS GG 1 CAPSULE. PO SCH ×2 (08:35→19:35)
[2020-12-21] MEDS: TAMSULOSIN 0.4 MG CAP.ER.24H. PO SCH (08:35)
[2020-12-21] MEDS: CARVEDILOL 6.25 MG TABLET PO SCH ×2 (08:35→17:48)
[2020-12-21] MEDS: ASPIRIN CHEWABLE 81 MG TABLET. PO SCH (08:35)
[2020-12-21] MEDS: amLODIPine BESYLATE 10 MG TABLET PO SCH (08:35)
[2020-12-21] MEDS: SERTRALINE 25 MG TABLET. PO SCH (08:36)
[2020-12-21] MEDS: MULTIVITAMIN with MINERAL TABLET. PO SCH (08:36)
[2020-12-21] MEDS: FOLIC ACID 1 MG TABLET PO SCH (08:36)
[2020-12-21] MEDS: THIAMINE 100 MG TABLET. PO SCH ×2 (08:36→19:35)
[2020-12-21] MEDS: LIDOCAINE (700MG/PATCH) PATCH. TD SCH (08:37)
[2020-12-21 17:41] VITALS: BP 154/88
--- NOTE | 2020-12-21 18:30 | NUR ---
Patient has been occasionally restless, wandering, and compliant with medications this shift. He was exit seeking at times, usually redirectable. Patient spent the afternoon wandering the hallways, and sitting in day room interactive with staff and peers. Will continue to monitor and report to oncoming staff.
[2020-12-21] MEDS: MELATONIN 3 MG TABLET PO SCH (19:35)
[2020-12-21] MEDS: ATORVASTATIN CALCIUM 20 MG TABLET PO SCH (19:35)
[2020-12-21] MEDS: AMITRIPTYLINE HCL 25 MG TABLET PO SCH (19:35)
[2020-12-21] MEDS: DIVALPROEX ER 500 MG TAB.ER.24H PO SCH (19:36)
--- NOTE | 2020-12-21 20:52 | PDOC ---
Exam Note: Gus Note: Please also refer to the separate dictated note~for this date of service dictated separately.~Patient seen individually. Discussed the patient with Nursing staff reviewed the chart.~Reviewed interim history and current functioning. Reviewed vital signs,~Labs/ Radiology~and current medications noted below. Continue current treatment with the changes noted in the dictated addendum note Assessment: Vital Signs/I&O: Vital Signs Date Time Temp Pulse Resp B/P (MAP) Pulse Ox O2 Delivery O2 Flow Rate FiO2 12/21/20 17:48 71 154/88 12/21/20 17:41 97.3 18 98 12/21/20 06:04 Room Air I & O 12/20/20 12/20/20 12/21/20 14:59 22:59 06:59 Intake Total 600 ml 360 ml Balance 600 ml 360 ml Current Medications: Meds: Current Medications Medications (Trade) Dose Ordered Sig/Evaristo Route PRN Reason Start Time Stop Time Status Last Admin Dose Admin Acetaminophen (Tylenol) 650 mg PRN Q6HRS PRN PO MILD PAIN / TEMP > 100.3'F 11/25/20 18:00 Multi-Ingredient Ointment (Analgesic [place]) 1 addison PRN QID PRN TP MUSCLE PAIN 11/25/20 18:00 Al Hydroxide/Mg Hydroxide (Mylanta Plus Xs) 15 ml PRN AFTMEALHC PRN PO DYSPEPSIA 11/25/20 18:00 12/10/20 18:52 Magnesium Hydroxide (Milk Of Magnesia) 2,400 mg PRN QHS PRN PO CONSTIPATION 11/25/20 18:00 12/13/20 08:36 Amlodipine Besylate (Norvasc) 10 mg DAILY PO 11/26/20 09:00 12/21/20 08:35 Aspirin (Aspirin Chewable) 81 mg DAILY PO 11/26/20 09:00 12/21/20 08:35 Carvedilol (Coreg) 6.25 mg BIDWMEALS PO 11/25/20 18:30 12/21/20 17:48 Lisinopril (Prinivil) 10 mg DAILY PO 11/26/20 09:00 11/26/20 16:16 DC Quetiapine Fumarate (SEROquel) 25 mg QHS PO 11/25/20 21:00 12/21/20 19:35 Tamsulosin HCl (Flomax) 0.4 mg DAILY PO 11/26/20 09:00 12/21/20 08:35 Amoxicillin (Amoxil) 500 mg [id number] PO 11/25/20 21:00 12/02/20 14:01 DC 12/02/20 14:15 Atorvastatin Calcium (Lipitor) 40 mg QHS PO 11/25/20 21:00 12/21/20 19:35 Folic Acid (Folic Acid) 1 mg DAILY PO 11/26/20 09:00 12/21/20 08:36 Lidocaine (Lidoderm) 1 patch DAILY TD 11/26/20 09:00 12/21/20 08:37 Multivitamins/ Calcium (Thera-M Plus) 1 tab DAILY PO 11/26/20 09:00 12/21/20 08:36 Thiamine HCl (Vitamin B-1) 100 mg BID PO 11/25/20 21:00 12/21/20 19:35 Olanzapine (ZyPREXA ZYDIS) 2.5 mg PRN Q2HR PRN PO PSYCHOSIS 11/25/20 21:15 12/20/20 20:03 Trazodone HCl (Desyrel) 50 mg PRN QHS PRN PO INSOMNIA, MAY REPEAT IN 1HR 11/25/20 21:15 12/20/20 20:03 Mirtazapine (Remeron) 7.5 mg QHS PO 11/26/20 21:00 11/28/20 12:23 DC 11/27/20 20:00 Lactobacillus Rhamnosus (Culturelle) 1 cap BID PO 11/27/20 09:00 12/21/20 19:35 Sertraline HCl (Zoloft) 25 mg DAILY PO 11/28/20 09:00 11/30/20 09:01 DC 11/30/20 08:39 Sertraline HCl (Zoloft) 50 mg DAILY PO 12/01/20 09:00 12/03/20 11:00 DC 12/03/20 08:05 Mirtazapine (Remeron) 15 mg QHS PO 11/28/20 21:00 11/29/20 18:47 DC 11/28/20 19:38 Hydroxyzine HCl (Atarax) 25 mg PRN Q2HR PRN PO ABDOMINAL CRAMPS 11/28/20 21:45 12/20/20 12:09 Lorazepam (Ativan) 0.5 mg PRN Q4HRS PRN PO ANXIETY / AGITATION 11/28/20 21:45 11/29/20 21:45 DC Amitriptyline HCl (Elavil) 25 mg QHS PO 11/29/20 21:00 12/21/20 19:35 Melatonin (Melatonin) 3 mg QHS PO 11/29/20 21:00 12/21/20 19:35 Sertraline HCl (Zoloft) 75 mg DAILY PO 12/04/20 09:00 12/21/20 08:36 Divalproex Sodium (Depakote Er) 500 mg QHS PO 12/02/20 21:00 12/05/20 12:29 DC 12/04/20 20:08 Divalproex Sodium (Depakote Er) 1,000 mg QHS PO 12/05/20 21:00 12/21/20 19:36 Quetiapine Fumarate (SEROquel) 12.5 mg DAILY PO 12/17/20 09:00 12/18/20 16:46 DC 12/18/20 08:01 Quetiapine Fumarate (SEROquel) 12.5 mg [id number] PO 12/19/20 09:00 12/21/20 14:04 I have reviewed the current psychotropics carefully including drug interactions. Risk benefit ratio favors no change other than as noted in my dictated progress note. Diagnosis: Problems: (1) Major neurocognitive disorder (2) Impulse control disorder, unspecified (3) Anxiety disorder, unspecified (4) Dementia, vascular, with depression (5) Dementia, vascular, with delusions (6) Dementia in Alzheimer's disease with depression (7) Dementia in Alzheimer's disease with delusions (8) Dementia of the Alzheimer's type with early onset with behavioral disturba DONA Sal MD Dec 21, 2020 20:51
--- NOTE | 2020-12-21 23:39 | NUR ---
Nursing Note: Pt sitting in dayroom, visiting with other pts. Pt calm, pleasantly confused, and interactive. Pt cooperative with assessment and compliant with medications administered whole.
[2020-12-22 06:21] VITALS: BP 143/86
[2020-12-22] MEDS: MULTIVITAMIN with MINERAL TABLET. PO SCH (08:06)
[2020-12-22] MEDS: TAMSULOSIN 0.4 MG CAP.ER.24H. PO SCH (08:06)
[2020-12-22] MEDS: ASPIRIN CHEWABLE 81 MG TABLET. PO SCH (08:06)
[2020-12-22] MEDS: QUEtiapine 25 MG TABLET. PO SCH ×3 (08:07→20:04)
[2020-12-22] MEDS: SERTRALINE 25 MG TABLET. PO SCH (08:08)
[2020-12-22] MEDS: LACTOBACILLUS RHAMNOSUS GG 1 CAPSULE. PO SCH ×2 (08:08→20:04)
[2020-12-22] MEDS: THIAMINE 100 MG TABLET. PO SCH ×2 (08:08→20:04)
[2020-12-22] MEDS: CARVEDILOL 6.25 MG TABLET PO SCH ×2 (08:08→17:04)
[2020-12-22] MEDS: amLODIPine BESYLATE 10 MG TABLET PO SCH (08:09)
[2020-12-22] MEDS: FOLIC ACID 1 MG TABLET PO SCH (08:09)
[2020-12-22] MEDS: LIDOCAINE (700MG/PATCH) PATCH. TD SCH (08:15)
--- NOTE | 2020-12-22 08:59 | PDOC ---
Exam Note: Gus Note: This note is a late entry for 12/20/2020 covers elements not covered in my initial note. Subjective: The patient was seen face to face in the evening of 12/20/2020 with Cm OVIEDO. Discussed with nursing staff, reviewed the chart. The patient slept 5 hours previous night. He remains confused, was quite intrusive, agitated previous evening, difficult to redirect. He has done a little better during the day on 12/20. He does get agitated at another patient who was having some medical problems. Received Ativan, Zyprexa at 12.09 p.m. Review of Systems: No CV, , pulmonary, eye, ENT system symptoms on review. Reliability poor. Mental Status Exam: The patient is oriented to himself. Insight and judgment, recent and remote memory, attention and concentration, fund of knowledge is poor consistent with his diagnosis. Laboratory Data: Reviewed. Impression: Major neurocognitive disorder Alzheimer vascular with delusion, depression, behavioral disturbance. Anxiety disorder unspecified. Impulse control disorder unspecified. Plan: Rest unchanged from initial note. Assessment: Vital Signs/I&O: Vital Signs Date Time Temp Pulse Resp B/P (MAP) Pulse Ox O2 Delivery O2 Flow Rate FiO2 12/22/20 08:09 64 143/86 12/22/20 06:21 98.6 16 97 Room Air I & O 12/21/20 12/21/20 12/22/20 15:00 23:00 07:00 Intake Total 680 ml 360 ml Balance 680 ml 360 ml Current Medications: Meds: Current Medications Medications (Trade) Dose Ordered Sig/Evaristo Route PRN Reason Start Time Stop Time Status Last Admin Dose Admin Acetaminophen (Tylenol) 650 mg PRN Q6HRS PRN PO MILD PAIN / TEMP > 100.3'F 11/25/20 18:00 Multi-Ingredient Ointment (Analgesic [place]) 1 addison PRN QID PRN TP MUSCLE PAIN 11/25/20 18:00 Al Hydroxide/Mg Hydroxide (Mylanta Plus Xs) 15 ml PRN AFTMEALHC PRN PO DYSPEPSIA 11/25/20 18:00 12/10/20 18:52 Magnesium Hydroxide (Milk Of Magnesia) 2,400 mg PRN QHS PRN PO CONSTIPATION 11/25/20 18:00 12/13/20 08:36 Amlodipine Besylate (Norvasc) 10 mg DAILY PO 11/26/20 09:00 12/22/20 08:09 Aspirin (Aspirin Chewable) 81 mg DAILY PO 11/26/20 09:00 12/22/20 08:06 Carvedilol (Coreg) 6.25 mg BIDWMEALS PO 11/25/20 18:30 12/22/20 08:08 Lisinopril (Prinivil) 10 mg DAILY PO 11/26/20 09:00 11/26/20 16:16 DC Quetiapine Fumarate (SEROquel) 25 mg QHS PO 11/25/20 21:00 12/21/20 19:35 Tamsulosin HCl (Flomax) 0.4 mg DAILY PO 11/26/20 09:00 12/22/20 08:06 Amoxicillin (Amoxil) 500 mg [id number] PO 11/25/20 21:00 12/02/20 14:01 DC 12/02/20 14:15 Atorvastatin Calcium (Lipitor) 40 mg QHS PO 11/25/20 21:00 12/21/20 19:35 Folic Acid (Folic Acid) 1 mg DAILY PO 11/26/20 09:00 12/22/20 08:09 Lidocaine (Lidoderm) 1 patch DAILY TD 11/26/20 09:00 12/22/20 08:15 Multivitamins/ Calcium (Thera-M Plus) 1 tab DAILY PO 11/26/20 09:00 12/22/20 08:06 Thiamine HCl (Vitamin B-1) 100 mg BID PO 11/25/20 21:00 12/22/20 08:08 Olanzapine (ZyPREXA ZYDIS) 2.5 mg PRN Q2HR PRN PO PSYCHOSIS 11/25/20 21:15 12/20/20 20:03 Trazodone HCl (Desyrel) 50 mg PRN QHS PRN PO INSOMNIA, MAY REPEAT IN 1HR 11/25/20 21:15 12/20/20 20:03 Mirtazapine (Remeron) 7.5 mg QHS PO 11/26/20 21:00 11/28/20 12:23 DC 11/27/20 20:00 Lactobacillus Rhamnosus (Culturelle) 1 cap BID PO 11/27/20 09:00 12/22/20 08:08 Sertraline HCl (Zoloft) 25 mg DAILY PO 11/28/20 09:00 11/30/20 09:01 DC 11/30/20 08:39 Sertraline HCl (Zoloft) 50 mg DAILY PO 12/01/20 09:00 12/03/20 11:00 DC 12/03/20 08:05 Mirtazapine (Remeron) 15 mg QHS PO 11/28/20 21:00 11/29/20 18:47 DC 11/28/20 19:38 Hydroxyzine HCl (Atarax) 25 mg PRN Q2HR PRN PO ABDOMINAL CRAMPS 11/28/20 21:45 12/20/20 12:09 Lorazepam (Ativan) 0.5 mg PRN Q4HRS PRN PO ANXIETY / AGITATION 11/28/20 21:45 11/29/20 21:45 DC Amitriptyline HCl (Elavil) 25 mg QHS PO 11/29/20 21:00 12/21/20 19:35 Melatonin (Melatonin) 3 mg QHS PO 11/29/20 21:00 12/21/20 19:35 Sertraline HCl (Zoloft) 75 mg DAILY PO 12/04/20 09:00 12/22/20 08:08 Divalproex Sodium (Depakote Er) 500 mg QHS PO 12/02/20 21:00 12/05/20 12:29 DC 12/04/20 20:08 Divalproex Sodium (Depakote Er) 1,000 mg QHS PO 12/05/20 21:00 12/21/20 19:36 Quetiapine Fumarate (SEROquel) 12.5 mg DAILY PO 12/17/20 09:00 12/18/20 16:46 DC 12/18/20 08:01 Quetiapine Fumarate (SEROquel) 12.5 mg [id number] PO 12/19/20 09:00 12/22/20 08:07 I have reviewed the current psychotropics carefully including drug interactions. Risk benefit ratio favors no change other than as noted in my dictated progress note. Diagnosis: Problems: (1) Major neurocognitive disorder (2) Impulse control disorder, unspecified (3) Anxiety disorder, unspecified (4) Dementia, vascular, with depression (5) Dementia, vascular, with delusions (6) Dementia in Alzheimer's disease with depression (7) Dementia in Alzheimer's disease with delusions (8) Dementia of the Alzheimer's type with early onset with behavioral disturbance DONA BOTELLO MD Dec 22, 2020 08:59
--- NOTE | 2020-12-22 09:14 | PDOC ---
Exam Note: Gus Note: This note is a late entry for 12/21/2020 covers elements not covered in my initial note. Subjective: The patient was seen face to face in the evening of 12/21/2020 with Cm OVIEDO. Discussed with nursing staff, reviewed the chart. The patient slept 6-3/4 hours previous night. Overall the patient has had a good day. He remains confused. He was teaming out with two other demented patients, plotting to exit the unit. Review of Systems: No CV, , pulmonary, eye, ENT system symptoms on review. Mental Status Exam: The patient is oriented to himself. He is pleasant, verbal, interactive, quit confused. Insight and judgment, recent and remote memory, attention and concentration, fund of knowledge is poor consistent with his diagnosis. No suicidal or homicidal ideation. Laboratory Data: Reviewed. Impression: Major neurocognitive disorder Alzheimer vascular with delusion, depression, behavioral disturbance. Anxiety disorder unspecified. Impulse control disorder unspecified. Plan: No change from initial note. Assessment: Vital Signs/I&O: Vital Signs Date Time Temp Pulse Resp B/P (MAP) Pulse Ox O2 Delivery O2 Flow Rate FiO2 12/22/20 08:09 64 143/86 12/22/20 06:21 98.6 16 97 Room Air I & O 12/21/20 12/21/20 12/22/20 15:00 23:00 07:00 Intake Total 680 ml 360 ml Balance 680 ml 360 ml Current Medications: Meds: Current Medications Medications (Trade) Dose Ordered Sig/Evaristo Route PRN Reason Start Time Stop Time Status Last Admin Dose Admin Acetaminophen (Tylenol) 650 mg PRN Q6HRS PRN PO MILD PAIN / TEMP > 100.3'F 11/25/20 18:00 Multi-Ingredient Ointment (Analgesic [place]) 1 addison PRN QID PRN TP MUSCLE PAIN 11/25/20 18:00 Al Hydroxide/Mg Hydroxide (Mylanta Plus Xs) 15 ml PRN AFTMEALHC PRN PO DYSPEPSIA 11/25/20 18:00 12/10/20 18:52 Magnesium Hydroxide (Milk Of Magnesia) 2,400 mg PRN QHS PRN PO CONSTIPATION 11/25/20 18:00 12/13/20 08:36 Amlodipine Besylate (Norvasc) 10 mg DAILY PO 11/26/20 09:00 12/22/20 08:09 Aspirin (Aspirin Chewable) 81 mg DAILY PO 11/26/20 09:00 12/22/20 08:06 Carvedilol (Coreg) 6.25 mg BIDWMEALS PO 11/25/20 18:30 12/22/20 08:08 Lisinopril (Prinivil) 10 mg DAILY PO 11/26/20 09:00 11/26/20 16:16 DC Quetiapine Fumarate (SEROquel) 25 mg QHS PO 11/25/20 21:00 12/21/20 19:35 Tamsulosin HCl (Flomax) 0.4 mg DAILY PO 11/26/20 09:00 12/22/20 08:06 Amoxicillin (Amoxil) 500 mg [id number] PO 11/25/20 21:00 12/02/20 14:01 DC 12/02/20 14:15 Atorvastatin Calcium (Lipitor) 40 mg QHS PO 11/25/20 21:00 12/21/20 19:35 Folic Acid (Folic Acid) 1 mg DAILY PO 11/26/20 09:00 12/22/20 08:09 Lidocaine (Lidoderm) 1 patch DAILY TD 11/26/20 09:00 12/22/20 08:15 Multivitamins/ Calcium (Thera-M Plus) 1 tab DAILY PO 11/26/20 09:00 12/22/20 08:06 Thiamine HCl (Vitamin B-1) 100 mg BID PO 11/25/20 21:00 12/22/20 08:08 Olanzapine (ZyPREXA ZYDIS) 2.5 mg PRN Q2HR PRN PO PSYCHOSIS 11/25/20 21:15 12/20/20 20:03 Trazodone HCl (Desyrel) 50 mg PRN QHS PRN PO INSOMNIA, MAY REPEAT IN 1HR 11/25/20 21:15 12/20/20 20:03 Mirtazapine (Remeron) 7.5 mg QHS PO 11/26/20 21:00 11/28/20 12:23 DC 11/27/20 20:00 Lactobacillus Rhamnosus (Culturelle) 1 cap BID PO 11/27/20 09:00 12/22/20 08:08 Sertraline HCl (Zoloft) 25 mg DAILY PO 11/28/20 09:00 11/30/20 09:01 DC 11/30/20 08:39 Sertraline HCl (Zoloft) 50 mg DAILY PO 12/01/20 09:00 12/03/20 11:00 DC 12/03/20 08:05 Mirtazapine (Remeron) 15 mg QHS PO 11/28/20 21:00 11/29/20 18:47 DC 11/28/20 19:38 Hydroxyzine HCl (Atarax) 25 mg PRN Q2HR PRN PO ABDOMINAL CRAMPS 11/28/20 21:45 12/20/20 12:09 Lorazepam (Ativan) 0.5 mg PRN Q4HRS PRN PO ANXIETY / AGITATION 11/28/20 21:45 11/29/20 21:45 DC Amitriptyline HCl (Elavil) 25 mg QHS PO 11/29/20 21:00 12/21/20 19:35 Melatonin (Melatonin) 3 mg QHS PO 11/29/20 21:00 12/21/20 19:35 Sertraline HCl (Zoloft) 75 mg DAILY PO 12/04/20 09:00 12/22/20 08:08 Divalproex Sodium (Depakote Er) 500 mg QHS PO 12/02/20 21:00 12/05/20 12:29 DC 12/04/20 20:08 Divalproex Sodium (Depakote Er) 1,000 mg QHS PO 12/05/20 21:00 12/21/20 19:36 Quetiapine Fumarate (SEROquel) 12.5 mg DAILY PO 12/17/20 09:00 12/18/20 16:46 DC 12/18/20 08:01 Quetiapine Fumarate (SEROquel) 12.5 mg [id number] PO 12/19/20 09:00 12/22/20 08:07 I have reviewed the current psychotropics carefully including drug interactions. Risk benefit ratio favors no change other than as noted in my dictated progress note. Diagnosis: Problems: (1) Major neurocognitive disorder (2) Impulse control disorder, unspecified (3) Anxiety disorder, unspecified (4) Dementia, vascular, with depression (5) Dementia, vascular, with delusions (6) Dementia in Alzheimer's disease with depression (7) Dementia in Alzheimer's disease with delusions (8) Dementia of the Alzheimer's type with early onset with behavioral disturbance DONA BOTELLO MD Dec 22, 2020 09:14
[2020-12-22 15:38] VITALS: BP 128/85
--- NOTE | 2020-12-22 17:39 | NUR ---
Patient A&O to self, compliant with medication and assessment. Pt has still been exit seeking and wanting to get a ride to [place]. Pt is very redirectable. Takes medications whole without difficulty
[2020-12-22] MEDS: ATORVASTATIN CALCIUM 20 MG TABLET PO SCH (20:04)
[2020-12-22] MEDS: MELATONIN 3 MG TABLET PO SCH (20:04)
[2020-12-22] MEDS: AMITRIPTYLINE HCL 25 MG TABLET PO SCH (20:04)
[2020-12-22] MEDS: DIVALPROEX ER 500 MG TAB.ER.24H PO SCH (20:04)
[2020-12-22] MEDS: traZODone 50 MG TABLET. PO PRN ×3 (20:04→23:51)
--- NOTE | 2020-12-22 21:06 | PDOC ---
Exam Note: Gus Note: Please also refer to the separate dictated note~for this date of service dictated separately.~Patient seen individually. Discussed the patient with Nursing staff reviewed the chart.~Reviewed interim history and current functioning. Reviewed vital signs,~Labs/ Radiology~and current medications noted below. Continue current treatment with the changes noted in the dictated addendum note Assessment: Vital Signs/I&O: Vital Signs Date Time Temp Pulse Resp B/P (MAP) Pulse Ox O2 Delivery O2 Flow Rate FiO2 12/22/20 17:04 70 128/85 12/22/20 15:38 97.6 20 98 12/22/20 06:21 Room Air I & O 12/21/20 12/21/20 12/22/20 15:00 23:00 07:00 Intake Total 680 ml 360 ml Balance 680 ml 360 ml Current Medications: Meds: Current Medications Medications (Trade) Dose Ordered Sig/Evaristo Route PRN Reason Start Time Stop Time Status Last Admin Dose Admin Acetaminophen (Tylenol) 650 mg PRN Q6HRS PRN PO MILD PAIN / TEMP > 100.3'F 11/25/20 18:00 Multi-Ingredient Ointment (Analgesic [place]) 1 addison PRN QID PRN TP MUSCLE PAIN 11/25/20 18:00 Al Hydroxide/Mg Hydroxide (Mylanta Plus Xs) 15 ml PRN AFTMEALHC PRN PO DYSPEPSIA 11/25/20 18:00 12/10/20 18:52 Magnesium Hydroxide (Milk Of Magnesia) 2,400 mg PRN QHS PRN PO CONSTIPATION 11/25/20 18:00 12/13/20 08:36 Amlodipine Besylate (Norvasc) 10 mg DAILY PO 11/26/20 09:00 12/22/20 08:09 Aspirin (Aspirin Chewable) 81 mg DAILY PO 11/26/20 09:00 12/22/20 08:06 Carvedilol (Coreg) 6.25 mg BIDWMEALS PO 11/25/20 18:30 12/22/20 17:04 Lisinopril (Prinivil) 10 mg DAILY PO 11/26/20 09:00 11/26/20 16:16 DC Quetiapine Fumarate (SEROquel) 25 mg QHS PO 11/25/20 21:00 12/22/20 20:04 Tamsulosin HCl (Flomax) 0.4 mg DAILY PO 11/26/20 09:00 12/22/20 08:06 Amoxicillin (Amoxil) 500 mg [id number] PO 11/25/20 21:00 12/02/20 14:01 DC 12/02/20 14:15 Atorvastatin Calcium (Lipitor) 40 mg QHS PO 11/25/20 21:00 12/22/20 20:04 Folic Acid (Folic Acid) 1 mg DAILY PO 11/26/20 09:00 12/22/20 08:09 Lidocaine (Lidoderm) 1 patch DAILY TD 11/26/20 09:00 12/22/20 08:15 Multivitamins/ Calcium (Thera-M Plus) 1 tab DAILY PO 11/26/20 09:00 12/22/20 08:06 Thiamine HCl (Vitamin B-1) 100 mg BID PO 11/25/20 21:00 12/22/20 20:04 Olanzapine (ZyPREXA ZYDIS) 2.5 mg PRN Q2HR PRN PO PSYCHOSIS 11/25/20 21:15 12/20/20 20:03 Trazodone HCl (Desyrel) 50 mg PRN QHS PRN PO INSOMNIA, MAY REPEAT IN 1HR 11/25/20 21:15 12/22/20 20:04 Mirtazapine (Remeron) 7.5 mg QHS PO 11/26/20 21:00 11/28/20 12:23 DC 11/27/20 20:00 Lactobacillus Rhamnosus (Culturelle) 1 cap BID PO 11/27/20 09:00 12/22/20 20:04 Sertraline HCl (Zoloft) 25 mg DAILY PO 11/28/20 09:00 11/30/20 09:01 DC 11/30/20 08:39 Sertraline HCl (Zoloft) 50 mg DAILY PO 12/01/20 09:00 12/03/20 11:00 DC 12/03/20 08:05 Mirtazapine (Remeron) 15 mg QHS PO 11/28/20 21:00 11/29/20 18:47 DC 11/28/20 19:38 Hydroxyzine HCl (Atarax) 25 mg PRN Q2HR PRN PO ABDOMINAL CRAMPS 11/28/20 21:45 12/20/20 12:09 Lorazepam (Ativan) 0.5 mg PRN Q4HRS PRN PO ANXIETY / AGITATION 11/28/20 21:45 11/29/20 21:45 DC Amitriptyline HCl (Elavil) 25 mg QHS PO 11/29/20 21:00 12/22/20 20:04 Melatonin (Melatonin) 3 mg QHS PO 11/29/20 21:00 12/22/20 20:04 Sertraline HCl (Zoloft) 75 mg DAILY PO 12/04/20 09:00 12/22/20 08:08 Divalproex Sodium (Depakote Er) 500 mg QHS PO 12/02/20 21:00 12/05/20 12:29 DC 12/04/20 20:08 Divalproex Sodium (Depakote Er) 1,000 mg QHS PO 12/05/20 21:00 12/22/20 20:04 Quetiapine Fumarate (SEROquel) 12.5 mg DAILY PO 12/17/20 09:00 12/18/20 16:46 DC 12/18/20 08:01 Quetiapine Fumarate (SEROquel) 12.5 mg [id number] PO 12/19/20 09:00 12/22/20 14:01 I have reviewed the current psychotropics carefully including drug interactions. Risk benefit ratio favors no change other than as noted in my dictated progress note. Diagnosis: Problems: (1) Major neurocognitive disorder (2) Impulse control disorder, unspecified (3) Anxiety disorder, unspecified (4) Dementia, vascular, with depression (5) Dementia, vascular, with delusions (6) Dementia in Alzheimer's disease with depression (7) Dementia in Alzheimer's disease with delusions (8) Dementia of the Alzheimer's type with early onset with behavioral disturba DONA Sal MD Dec 22, 2020 21:06
--- NOTE | 2020-12-22 23:26 | NUR ---
Nursing Note: Pt wandering in hallway at shift change. Pt confused, delusional- believes he needs to go to work, exit seeking. Pt wandering into other pt rooms after they were in bed and therefore he had to be moved to the West hallway. PRN Trazodone administered at HS with repeat dose administered @0163. Staff has attempted to escort pt to his room to lie down but he continues to get up and was once again placed in the West hallway. Pt continues to exit seek, asking staff to unlock the doors and let him out because he needs to get to work. Pt becomes agitated when staff attempts to re-direct him. PRN Zydis administered @9225.
[2020-12-23 06:07] VITALS: BP 152/77
--- NOTE | 2020-12-23 07:33 | PDOC ---
Exam Note: Gus Note: This note is a late entry for 12/22/2020 covers elements not covered in my initial note. Subjective: The patient was seen face to face in the evening of 12/22/2020 with Samira OVIEDO. Discussed with nursing staff, reviewed the chart. The patient slept 6 hours previous night. He remains confused, exit seeking at times. He was looking for a ride to the [employer] [facility]. Review of Systems: No CV, , pulmonary, eye, ENT system symptoms on review. Mental Status Exam: The patient is oriented to himself. Insight and judgment, recent and remote memory, attention and concentration, fund of knowledge is poor consistent with his diagnosis. No suicidal or homicidal ideation. Laboratory Data: Reviewed. Impression: Major neurocognitive disorder Alzheimer vascular with delusion, depression, behavioral disturbance. Anxiety disorder unspecified. Impulse control disorder unspecified. Plan: No change from initial note. Assessment: Vital Signs/I&O: Vital Signs Date Time Temp Pulse Resp B/P (MAP) Pulse Ox O2 Delivery O2 Flow Rate FiO2 12/23/20 06:07 97.5 70 16 152/77 (102) 95 Room Air I & O 12/22/20 12/22/20 12/23/20 15:00 23:00 07:00 Intake Total 720 ml 360 ml Balance 720 ml 360 ml Current Medications: Meds: Current Medications Medications (Trade) Dose Ordered Sig/Evaristo Route PRN Reason Start Time Stop Time Status Last Admin Dose Admin Acetaminophen (Tylenol) 650 mg PRN Q6HRS PRN PO MILD PAIN / TEMP > 100.3'F 11/25/20 18:00 Multi-Ingredient Ointment (Analgesic [place]) 1 addison PRN QID PRN TP MUSCLE PAIN 11/25/20 18:00 Al Hydroxide/Mg Hydroxide (Mylanta Plus Xs) 15 ml PRN AFTMEALHC PRN PO DYSPEPSIA 11/25/20 18:00 12/10/20 18:52 Magnesium Hydroxide (Milk Of Magnesia) 2,400 mg PRN QHS PRN PO CONSTIPATION 11/25/20 18:00 12/13/20 08:36 Amlodipine Besylate (Norvasc) 10 mg DAILY PO 11/26/20 09:00 12/22/20 08:09 Aspirin (Aspirin Chewable) 81 mg DAILY PO 11/26/20 09:00 12/22/20 08:06 Carvedilol (Coreg) 6.25 mg BIDWMEALS PO 11/25/20 18:30 12/22/20 17:04 Lisinopril (Prinivil) 10 mg DAILY PO 11/26/20 09:00 11/26/20 16:16 DC Quetiapine Fumarate (SEROquel) 25 mg QHS PO 11/25/20 21:00 12/22/20 20:04 Tamsulosin HCl (Flomax) 0.4 mg DAILY PO 11/26/20 09:00 12/22/20 08:06 Amoxicillin (Amoxil) 500 mg [id number] PO 11/25/20 21:00 12/02/20 14:01 DC 12/02/20 14:15 Atorvastatin Calcium (Lipitor) 40 mg QHS PO 11/25/20 21:00 12/22/20 20:04 Folic Acid (Folic Acid) 1 mg DAILY PO 11/26/20 09:00 12/22/20 08:09 Lidocaine (Lidoderm) 1 patch DAILY TD 11/26/20 09:00 12/22/20 08:15 Multivitamins/ Calcium (Thera-M Plus) 1 tab DAILY PO 11/26/20 09:00 12/22/20 08:06 Thiamine HCl (Vitamin B-1) 100 mg BID PO 11/25/20 21:00 12/22/20 20:04 Olanzapine (ZyPREXA ZYDIS) 2.5 mg PRN Q2HR PRN PO PSYCHOSIS 11/25/20 21:15 12/22/20 23:21 Trazodone HCl (Desyrel) 50 mg PRN QHS PRN PO INSOMNIA, MAY REPEAT IN 1HR 11/25/20 21:15 12/22/20 23:51 Mirtazapine (Remeron) 7.5 mg QHS PO 11/26/20 21:00 11/28/20 12:23 DC 11/27/20 20:00 Lactobacillus Rhamnosus (Culturelle) 1 cap BID PO 11/27/20 09:00 12/22/20 20:04 Sertraline HCl (Zoloft) 25 mg DAILY PO 11/28/20 09:00 11/30/20 09:01 DC 11/30/20 08:39 Sertraline HCl (Zoloft) 50 mg DAILY PO 12/01/20 09:00 12/03/20 11:00 DC 12/03/20 08:05 Mirtazapine (Remeron) 15 mg QHS PO 11/28/20 21:00 11/29/20 18:47 DC 11/28/20 19:38 Hydroxyzine HCl (Atarax) 25 mg PRN Q2HR PRN PO ABDOMINAL CRAMPS 11/28/20 21:45 12/20/20 12:09 Lorazepam (Ativan) 0.5 mg PRN Q4HRS PRN PO ANXIETY / AGITATION 11/28/20 21:45 11/29/20 21:45 DC Amitriptyline HCl (Elavil) 25 mg QHS PO 11/29/20 21:00 12/22/20 20:04 Melatonin (Melatonin) 3 mg QHS PO 11/29/20 21:00 12/22/20 20:04 Sertraline HCl (Zoloft) 75 mg DAILY PO 12/04/20 09:00 12/22/20 08:08 Divalproex Sodium (Depakote Er) 500 mg QHS PO 12/02/20 21:00 12/05/20 12:29 DC 12/04/20 20:08 Divalproex Sodium (Depakote Er) 1,000 mg QHS PO 12/05/20 21:00 12/22/20 20:04 Quetiapine Fumarate (SEROquel) 12.5 mg DAILY PO 12/17/20 09:00 12/18/20 16:46 DC 12/18/20 08:01 Quetiapine Fumarate (SEROquel) 12.5 mg [id number] PO 12/19/20 09:00 12/22/20 14:01 I have reviewed the current psychotropics carefully including drug interactions. Risk benefit ratio favors no change other than as noted in my dictated progress note. Diagnosis: Problems: (1) Major neurocognitive disorder (2) Impulse control disorder, unspecified (3) Anxiety disorder, unspecified (4) Dementia, vascular, with depression (5) Dementia, vascular, with delusions (6) Dementia in Alzheimer's disease with depression (7) Dementia in Alzheimer's disease with delusions (8) Dementia of the Alzheimer's type with early onset with behavioral disturbance DONA BOTELLO MD Dec 23, 2020 07:33
[2020-12-23] MEDS: SERTRALINE 25 MG TABLET. PO SCH (08:11)
[2020-12-23] MEDS: ASPIRIN CHEWABLE 81 MG TABLET. PO SCH (08:11)
[2020-12-23] MEDS: amLODIPine BESYLATE 10 MG TABLET PO SCH (08:11)
[2020-12-23] MEDS: THIAMINE 100 MG TABLET. PO SCH ×2 (08:11→19:38)
[2020-12-23] MEDS: MULTIVITAMIN with MINERAL TABLET. PO SCH (08:11)
[2020-12-23] MEDS: CARVEDILOL 6.25 MG TABLET PO SCH ×2 (08:11→16:30)
[2020-12-23] MEDS: QUEtiapine 25 MG TABLET. PO SCH ×4 (08:11→19:38)
[2020-12-23] MEDS: FOLIC ACID 1 MG TABLET PO SCH (08:12)
[2020-12-23] MEDS: LACTOBACILLUS RHAMNOSUS GG 1 CAPSULE. PO SCH ×2 (08:12→19:38)
[2020-12-23] MEDS: TAMSULOSIN 0.4 MG CAP.ER.24H. PO SCH (08:12)
[2020-12-23] MEDS: LIDOCAINE (700MG/PATCH) PATCH. TD SCH (08:21)
--- NOTE | 2020-12-23 10:14 | NUR ---
Pt exit seeking and non redirectable. Pt scratched staff and broke her necklace. PRN Zydis given with breakfast meds.
--- NOTE | 2020-12-23 15:18 | NUR ---
Pt has been wandering and exit seeking throughout day. Pt charged into nurse x1 when she was entering unit. Pt attempting to hit staff. PRN utilized. Has been compliant with meds.
[2020-12-23 16:15] VITALS: BP 131/81
--- NOTE | 2020-12-23 16:41 | NUR ---
MARY returned call to pt guardian, Mell, who reports that she has been sending SW emails with no response. SW assured Mell that SW always responds to emails and asked to repeat the email she had. It appears that pt guardian had SW last name spelled incorrectly and apologized for accusing SW of not communicating with her. Mell did leave SW a voice mail earlier, as SW was with family in the hospital lobby. SW discussed pt behaviors of extreme exit seeking, episodes of being hands on with staff when redirected. Pt will need a locked down unit that will be able to handle pt extreme exit seeking behaviors. Pt had a UA completed a few days ago and it came back negative for a UTI. Mell questioned if anyone on the team knew if pt was to his significant other, as she was told they were not; however, based off pt taxes, they found that pt filed as . MARY does not know this information and referenced to his children. She reports that pt children are very tight lipped and wouldn't give her the area within [place] that they lived. MARY will continue to look for placement on pt and keep Mell up to date on pt progress.
[2020-12-23] MEDS: AMITRIPTYLINE HCL 50 MG TABLET PO SCH (19:38)
[2020-12-23] MEDS: traZODone 50 MG TABLET. PO PRN (19:38)
[2020-12-23] MEDS: MELATONIN 3 MG TABLET PO SCH (19:38)
[2020-12-23] MEDS: ATORVASTATIN CALCIUM 20 MG TABLET PO SCH (19:39)
[2020-12-23] MEDS: DIVALPROEX ER 500 MG TAB.ER.24H PO SCH (19:39)
--- NOTE | 2020-12-23 20:59 | NUR ---
Nursing Note: Pt withdrawn to room, lying in bed with eyes closed at shift change. Pt calm and appropriate when approached. Pt cooperative with assessment and compliant with medications administered whole. No agitation, aggression, or exit seeking noted thus far this shift.
--- NOTE | 2020-12-23 21:08 | PDOC ---
Exam Note: Gus Note: Please also refer to the separate dictated note~for this date of service dictated separately.~Patient seen individually. Discussed the patient with Nursing staff reviewed the chart.~Reviewed interim history and current functioning. Reviewed vital signs,~Labs/ Radiology~and current medications noted below. Continue current treatment with the changes noted in the dictated addendum note Assessment: Vital Signs/I&O: Vital Signs Date Time Temp Pulse Resp B/P (MAP) Pulse Ox O2 Delivery O2 Flow Rate FiO2 12/23/20 16:30 95 131/81 12/23/20 16:15 97.4 22 96 Room Air I & O 12/22/20 12/22/20 12/23/20 15:00 23:00 07:00 Intake Total 720 ml 360 ml Balance 720 ml 360 ml Current Medications: Meds: Current Medications Medications (Trade) Dose Ordered Sig/Evaristo Route PRN Reason Start Time Stop Time Status Last Admin Dose Admin Acetaminophen (Tylenol) 650 mg PRN Q6HRS PRN PO MILD PAIN / TEMP > 100.3'F 11/25/20 18:00 Multi-Ingredient Ointment (Analgesic [place]) 1 addison PRN QID PRN TP MUSCLE PAIN 11/25/20 18:00 Al Hydroxide/Mg Hydroxide (Mylanta Plus Xs) 15 ml PRN AFTMEALHC PRN PO DYSPEPSIA 11/25/20 18:00 12/10/20 18:52 Magnesium Hydroxide (Milk Of Magnesia) 2,400 mg PRN QHS PRN PO CONSTIPATION 11/25/20 18:00 12/13/20 08:36 Amlodipine Besylate (Norvasc) 10 mg DAILY PO 11/26/20 09:00 12/23/20 08:11 Aspirin (Aspirin Chewable) 81 mg DAILY PO 11/26/20 09:00 12/23/20 08:11 Carvedilol (Coreg) 6.25 mg BIDWMEALS PO 11/25/20 18:30 12/23/20 16:30 Lisinopril (Prinivil) 10 mg DAILY PO 11/26/20 09:00 11/26/20 16:16 DC Quetiapine Fumarate (SEROquel) 25 mg QHS PO 11/25/20 21:00 12/23/20 17:23 DC 12/22/20 20:04 Tamsulosin HCl (Flomax) 0.4 mg DAILY PO 11/26/20 09:00 12/23/20 08:12 Amoxicillin (Amoxil) 500 mg [id number] PO 11/25/20 21:00 12/02/20 14:01 DC 12/02/20 14:15 Atorvastatin Calcium (Lipitor) 40 mg QHS PO 11/25/20 21:00 12/23/20 19:39 Folic Acid (Folic Acid) 1 mg DAILY PO 11/26/20 09:00 12/23/20 08:12 Lidocaine (Lidoderm) 1 patch DAILY TD 11/26/20 09:00 12/23/20 08:21 Multivitamins/ Calcium (Thera-M Plus) 1 tab DAILY PO 11/26/20 09:00 12/23/20 08:11 Thiamine HCl (Vitamin B-1) 100 mg BID PO 11/25/20 21:00 12/23/20 19:38 Olanzapine (ZyPREXA ZYDIS) 2.5 mg PRN Q2HR PRN PO PSYCHOSIS 11/25/20 21:15 12/23/20 08:12 Trazodone HCl (Desyrel) 50 mg PRN QHS PRN PO INSOMNIA, MAY REPEAT IN 1HR 11/25/20 21:15 12/23/20 19:38 Mirtazapine (Remeron) 7.5 mg QHS PO 11/26/20 21:00 11/28/20 12:23 DC 11/27/20 20:00 Lactobacillus Rhamnosus (Culturelle) 1 cap BID PO 11/27/20 09:00 12/23/20 19:38 Sertraline HCl (Zoloft) 25 mg DAILY PO 11/28/20 09:00 11/30/20 09:01 DC 11/30/20 08:39 Sertraline HCl (Zoloft) 50 mg DAILY PO 12/01/20 09:00 12/03/20 11:00 DC 12/03/20 08:05 Mirtazapine (Remeron) 15 mg QHS PO 11/28/20 21:00 11/29/20 18:47 DC 11/28/20 19:38 Hydroxyzine HCl (Atarax) 25 mg PRN Q2HR PRN PO ABDOMINAL CRAMPS 11/28/20 21:45 12/20/20 12:09 Lorazepam (Ativan) 0.5 mg PRN Q4HRS PRN PO ANXIETY / AGITATION 11/28/20 21:45 11/29/20 21:45 DC Amitriptyline HCl (Elavil) 25 mg QHS PO 11/29/20 21:00 12/23/20 17:23 DC 12/22/20 20:04 Melatonin (Melatonin) 3 mg QHS PO 11/29/20 21:00 12/23/20 19:38 Sertraline HCl (Zoloft) 75 mg DAILY PO 12/04/20 09:00 12/23/20 08:11 Divalproex Sodium (Depakote Er) 500 mg QHS PO 12/02/20 21:00 12/05/20 12:29 DC 12/04/20 20:08 Divalproex Sodium (Depakote Er) 1,000 mg QHS PO 12/05/20 21:00 12/23/20 19:39 Quetiapine Fumarate (SEROquel) 12.5 mg DAILY PO 12/17/20 09:00 12/18/20 16:46 DC 12/18/20 08:01 Quetiapine Fumarate (SEROquel) 12.5 mg [id number] PO 12/19/20 09:00 12/23/20 17:23 DC 12/23/20 13:28 Quetiapine Fumarate (SEROquel) 25 mg TID PO 12/23/20 17:30 12/23/20 19:38 Amitriptyline HCl (Elavil) 50 mg QHS PO 12/23/20 21:00 12/23/20 19:38 Current Medications Medications (Trade) Dose Ordered Sig/Evaristo Route PRN Reason Start Time Stop Time Status Last Admin Dose Admin Quetiapine Fumarate (SEROquel) 25 mg TID PO 12/23/20 17:30 12/23/20 19:38 Amitriptyline HCl (Elavil) 50 mg QHS PO 12/23/20 21:00 12/23/20 19:38 I have reviewed the current psychotropics carefully including drug interactions. Risk benefit ratio favors no change other than as noted in my dictated progress note. Diagnosis: Problems: (1) Major neurocognitive disorder (2) Impulse control disorder, unspecified (3) Anxiety disorder, unspecified (4) Dementia, vascular, with depression (5) Dementia, vascular, with delusions (6) Dementia in Alzheimer's disease with depression (7) Dementia in Alzheimer's disease with delusions (8) Dementia of the Alzheimer's type with early onset with behavioral disturbance DONA BOTELLO MD Dec 23, 2020 21:08
[2020-12-24 06:17] VITALS: BP 123/85
[2020-12-24] MEDS: CARVEDILOL 6.25 MG TABLET PO SCH ×2 (08:15→16:19)
[2020-12-24] MEDS: ASPIRIN CHEWABLE 81 MG TABLET. PO SCH (08:15)
[2020-12-24] MEDS: amLODIPine BESYLATE 10 MG TABLET PO SCH (08:15)
[2020-12-24] MEDS: MULTIVITAMIN with MINERAL TABLET. PO SCH (08:15)
[2020-12-24] MEDS: QUEtiapine 25 MG TABLET. PO SCH ×3 (08:15→19:29)
[2020-12-24] MEDS: FOLIC ACID 1 MG TABLET PO SCH (08:15)
[2020-12-24] MEDS: THIAMINE 100 MG TABLET. PO SCH ×2 (08:15→19:29)
[2020-12-24] MEDS: LACTOBACILLUS RHAMNOSUS GG 1 CAPSULE. PO SCH ×2 (08:16→19:29)
[2020-12-24] MEDS: SERTRALINE 25 MG TABLET. PO SCH (08:16)
[2020-12-24] MEDS: TAMSULOSIN 0.4 MG CAP.ER.24H. PO SCH (08:16)
[2020-12-24] MEDS: LIDOCAINE (700MG/PATCH) PATCH. TD SCH (08:17)
--- NOTE | 2020-12-24 10:39 | NUR ---
PT IS SITTING IN PT ROOM AT TIME OF ASSESSMENT AND MEDICATION ADMINISTRATION. PT IS COOPERATIVE AND COMPLIANT WITH MEDICATIONS AND ASSESSMENT. PT IS RESTING IN ROM AT THIS TIME. WILL CONTINUE TO MONITOR.
[2020-12-24 10:48] LABS: BASO % 0 % (0-3); EOS # 0.1 x10^3/uL (0.0-0.7); EOS % 3 % (0-3); HEMATOCRIT 38.8 % (39.0-53.0); HEMOGLOBIN 12.9 g/dL (13.0-17.5); LYMPH # 1.3 x10^3/uL (1.0-4.8); LYMPH % 26 % (24-48); MEAN CORPUSCULAR HEMOGLOBIN 30 pg (25-35); MEAN CORPUSCULAR HGB CONC 33 g/dL (31-37); MEAN CORPUSCULAR VOLUME 90 fL (79-100); MONO # 0.6 x10^3/uL (0.0-1.1); MONO % 13 % (0-9); NEUT # 2.8 x10^3uL (1.8-7.7); NEUT % 58 % (31-73); PLATELET COUNT 194 x10^3/uL (140-400); RED BLOOD COUNT 4.29 x10^6/uL (4.30-5.70); RED CELL DISTRIBUTION WIDTH 13.9 % (11.5-14.5); WHITE BLOOD COUNT 4.9 x10^3/uL (4.0-11.0)
[2020-12-24 11:17] LABS: ALBUMIN 2.6 g/dL (3.4-5.0); ALBUMIN/GLOBULIN RATIO 0.8 (1.0-1.7); CALCIUM 8.4 mg/dL (8.5-10.1); CREATININE 0.9 mg/dL (0.7-1.3); GFR 80.8; POTASSIUM 3.6 mmol/L (3.5-5.1); TOTAL BILIRUBIN 0.4 mg/dL (0.2-1.0); TOTAL PROTEIN 5.8 g/dL (6.4-8.2)
[2020-12-24 15:00] VITALS: BP 113/79
[2020-12-24] MEDS: DIVALPROEX ER 500 MG TAB.ER.24H PO SCH (19:29)
[2020-12-24] MEDS: AMITRIPTYLINE HCL 50 MG TABLET PO SCH (19:29)
[2020-12-24] MEDS: MELATONIN 3 MG TABLET PO SCH (19:29)
[2020-12-24] MEDS: ATORVASTATIN CALCIUM 20 MG TABLET PO SCH (19:29)
[2020-12-24] MEDS: traZODone 50 MG TABLET. PO PRN (19:29)
--- NOTE | 2020-12-24 21:03 | PDOC ---
Exam Note: Gus Note: Please also refer to the separate dictated note~for this date of service dictated separately.~Patient seen individually. Discussed the patient with Nursing staff reviewed the chart.~Reviewed interim history and current functioning. Reviewed vital signs,~Labs/ Radiology~and current medications noted below. Continue current treatment with the changes noted in the dictated addendum note Assessment: Vital Signs/I&O: Vital Signs Date Time Temp Pulse Resp B/P (MAP) Pulse Ox O2 Delivery O2 Flow Rate FiO2 12/24/20 16:19 60 123/85 12/24/20 15:00 97.8 20 97 Room Air I & O 12/23/20 12/23/20 12/24/20 15:00 23:00 07:00 Intake Total 600 ml 360 ml Balance 600 ml 360 ml Labs: Laboratory Tests Test 12/24/20 09:54 White Blood Count 4.9 x10^3/uL (4.0-11.0) Red Blood Count 4.29 x10^6/uL (4.30-5.70) L Hemoglobin 12.9 g/dL (13.0-17.5) L Hematocrit 38.8 % (39.0-53.0) L Mean Corpuscular Volume 90 fL (79-100) Mean Corpuscular Hemoglobin 30 pg (25-35) Mean Corpuscular Hemoglobin Concent 33 g/dL (31-37) Red Cell Distribution Width 13.9 % (11.5-14.5) Platelet Count 194 x10^3/uL (140-400) Neutrophils (%) (Auto) 58 % (31-73) Lymphocytes (%) (Auto) 26 % (24-48) Monocytes (%) (Auto) 13 % (0-9) H Eosinophils (%) (Auto) 3 % (0-3) Basophils (%) (Auto) 0 % (0-3) Neutrophils # (Auto) 2.8 x10^3uL (1.8-7.7) Lymphocytes # (Auto) 1.3 x10^3/uL (1.0-4.8) Monocytes # (Auto) 0.6 x10^3/uL (0.0-1.1) Eosinophils # (Auto) 0.1 x10^3/uL (0.0-0.7) Basophils # (Auto) 0.0 x10^3/uL (0.0-0.2) Sodium Level 141 mmol/L (136-145) Potassium Level 3.6 mmol/L (3.5-5.1) Chloride Level 107 mmol/L (98-107) Carbon Dioxide Level 26 mmol/L (21-32) Anion Gap 8 (6-14) Blood Urea Nitrogen 19 mg/dL (8-26) Creatinine 0.9 mg/dL (0.7-1.3) Estimated GFR (Cockcroft-Gault) 80.8 BUN/Creatinine Ratio 21 (6-20) H Glucose Level 126 mg/dL (70-99) H Calcium Level 8.4 mg/dL (8.5-10.1) L Total Bilirubin 0.4 mg/dL (0.2-1.0) Aspartate Amino Transferase (AST) 10 U/L (15-37) L Alanine Aminotransferase (ALT) 18 U/L (16-63) Alkaline Phosphatase 80 U/L (46-116) Total Protein 5.8 g/dL (6.4-8.2) L Albumin 2.6 g/dL (3.4-5.0) L Albumin/Globulin Ratio 0.8 (1.0-1.7) L Current Medications: Meds: Laboratory Tests Test 12/24/20 09:54 White Blood Count 4.9 x10^3/uL Red Blood Count 4.29 x10^6/uL Hemoglobin 12.9 g/dL Hematocrit 38.8 % Mean Corpuscular Volume 90 fL Mean Corpuscular Hemoglobin 30 pg Mean Corpuscular Hemoglobin Concent 33 g/dL Red Cell Distribution Width 13.9 % Platelet Count 194 x10^3/uL Neutrophils (%) (Auto) 58 % Lymphocytes (%) (Auto) 26 % Monocytes (%) (Auto) 13 % Eosinophils (%) (Auto) 3 % Basophils (%) (Auto) 0 % Neutrophils # (Auto) 2.8 x10^3uL Lymphocytes # (Auto) 1.3 x10^3/uL Monocytes # (Auto) 0.6 x10^3/uL Eosinophils # (Auto) 0.1 x10^3/uL Basophils # (Auto) 0.0 x10^3/uL Sodium Level 141 mmol/L Potassium Level 3.6 mmol/L Chloride Level 107 mmol/L Carbon Dioxide Level 26 mmol/L Anion Gap 8 Blood Urea Nitrogen 19 mg/dL Creatinine 0.9 mg/dL Estimated GFR (Cockcroft-Gault) 80.8 BUN/Creatinine Ratio 21 Glucose Level 126 mg/dL Calcium Level 8.4 mg/dL Total Bilirubin 0.4 mg/dL Aspartate Amino Transf (AST/SGOT) 10 U/L Alanine Aminotransferase (ALT/SGPT) 18 U/L Alkaline Phosphatase 80 U/L Total Protein 5.8 g/dL Albumin 2.6 g/dL Albumin/Globulin Ratio 0.8 Current Medications Medications (Trade) Dose Ordered Sig/Evaristo Route PRN Reason Start Time Stop Time Status Last Admin Dose Admin Acetaminophen (Tylenol) 650 mg PRN Q6HRS PRN PO MILD PAIN / TEMP > 100.3'F 11/25/20 18:00 Multi-Ingredient Ointment (Analgesic [place]) 1 addison PRN QID PRN TP MUSCLE PAIN 11/25/20 18:00 Al Hydroxide/Mg Hydroxide (Mylanta Plus Xs) 15 ml PRN AFTMEALHC PRN PO DYSPEPSIA 11/25/20 18:00 12/10/20 18:52 Magnesium Hydroxide (Milk Of Magnesia) 2,400 mg PRN QHS PRN PO CONSTIPATION 11/25/20 18:00 12/13/20 08:36 Amlodipine Besylate (Norvasc) 10 mg DAILY PO 11/26/20 09:00 12/24/20 08:15 Aspirin (Aspirin Chewable) 81 mg DAILY PO 11/26/20 09:00 12/24/20 08:15 Carvedilol (Coreg) 6.25 mg BIDWMEALS PO 11/25/20 18:30 12/24/20 16:19 Lisinopril (Prinivil) 10 mg DAILY PO 11/26/20 09:00 11/26/20 16:16 DC Quetiapine Fumarate (SEROquel) 25 mg QHS PO 11/25/20 21:00 12/23/20 17:23 DC 12/22/20 20:04 Tamsulosin HCl (Flomax) 0.4 mg DAILY PO 11/26/20 09:00 12/24/20 08:16 Amoxicillin (Amoxil) 500 mg [id number] PO 11/25/20 21:00 12/02/20 14:01 DC 12/02/20 14:15 Atorvastatin Calcium (Lipitor) 40 mg QHS PO 11/25/20 21:00 12/24/20 19:29 Folic Acid (Folic Acid) 1 mg DAILY PO 11/26/20 09:00 12/24/20 08:15 Lidocaine (Lidoderm) 1 patch DAILY TD 11/26/20 09:00 12/24/20 08:17 Multivitamins/ Calcium (Thera-M Plus) 1 tab DAILY PO 11/26/20 09:00 12/24/20 08:15 Thiamine HCl (Vitamin B-1) 100 mg BID PO 11/25/20 21:00 12/24/20 19:29 Olanzapine (ZyPREXA ZYDIS) 2.5 mg PRN Q2HR PRN PO PSYCHOSIS 11/25/20 21:15 12/23/20 08:12 Trazodone HCl (Desyrel) 50 mg PRN QHS PRN PO INSOMNIA, MAY REPEAT IN 1HR 11/25/20 21:15 12/24/20 19:29 Mirtazapine (Remeron) 7.5 mg QHS PO 11/26/20 21:00 11/28/20 12:23 DC 11/27/20 20:00 Lactobacillus Rhamnosus (Culturelle) 1 cap BID PO 11/27/20 09:00 12/24/20 19:29 Sertraline HCl (Zoloft) 25 mg DAILY PO 11/28/20 09:00 11/30/20 09:01 DC 11/30/20 08:39 Sertraline HCl (Zoloft) 50 mg DAILY PO 12/01/20 09:00 12/03/20 11:00 DC 12/03/20 08:05 Mirtazapine (Remeron) 15 mg QHS PO 11/28/20 21:00 11/29/20 18:47 DC 11/28/20 19:38 Hydroxyzine HCl (Atarax) 25 mg PRN Q2HR PRN PO ABDOMINAL CRAMPS 11/28/20 21:45 12/20/20 12:09 Lorazepam (Ativan) 0.5 mg PRN Q4HRS PRN PO ANXIETY / AGITATION 11/28/20 21:45 11/29/20 21:45 DC Amitriptyline HCl (Elavil) 25 mg QHS PO 11/29/20 21:00 12/23/20 17:23 DC 12/22/20 20:04 Melatonin (Melatonin) 3 mg QHS PO 11/29/20 21:00 12/24/20 19:29 Sertraline HCl (Zoloft) 75 mg DAILY PO 12/04/20 09:00 12/24/20 08:16 Divalproex Sodium (Depakote Er) 500 mg QHS PO 12/02/20 21:00 12/05/20 12:29 DC 12/04/20 20:08 Divalproex Sodium (Depakote Er) 1,000 mg QHS PO 12/05/20 21:00 12/24/20 19:29 Quetiapine Fumarate (SEROquel) 12.5 mg DAILY PO 12/17/20 09:00 12/18/20 16:46 DC 12/18/20 08:01 Quetiapine Fumarate (SEROquel) 12.5 mg [id number] PO 12/19/20 09:00 12/23/20 17:23 DC 12/23/20 13:28 Quetiapine Fumarate (SEROquel) 25 mg TID PO 12/23/20 17:30 12/24/20 19:29 Amitriptyline HCl (Elavil) 50 mg QHS PO 12/23/20 21:00 12/24/20 19:29 I have reviewed the current psychotropics carefully including drug interactions. Risk benefit ratio favors no change other than as noted in my dictated progress note. Diagnosis: Problems: (1) Major neurocognitive disorder (2) Impulse control disorder, unspecified (3) Anxiety disorder, unspecified (4) Dementia, vascular, with depression (5) Dementia, vascular, with delusions (6) Dementia in Alzheimer's disease with depression (7) Dementia in Alzheimer's disease with delusions (8) Dementia of the Alzheimer's type with early onset with behavioral disturbance DONA BOTELLO MD Dec 24, 2020 21:03
--- NOTE | 2020-12-24 21:50 | NUR ---
Nursing Note: Pt walking in the hallway at shift change. Pt calm, disorganized, pleasantly confused, and interactive. 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 Pt cooperative with assessment and medications administered whole.
[2020-12-25 06:35] VITALS: BP 154/79
[2020-12-25] MEDS: FOLIC ACID 1 MG TABLET PO SCH (08:47)
[2020-12-25] MEDS: ASPIRIN CHEWABLE 81 MG TABLET. PO SCH (08:48)
[2020-12-25] MEDS: TAMSULOSIN 0.4 MG CAP.ER.24H. PO SCH (08:48)
[2020-12-25] MEDS: QUEtiapine 25 MG TABLET. PO SCH ×3 (08:48→20:30)
[2020-12-25] MEDS: CARVEDILOL 6.25 MG TABLET PO SCH ×2 (08:48→17:15)
[2020-12-25] MEDS: SERTRALINE 25 MG TABLET. PO SCH (08:48)
[2020-12-25] MEDS: MULTIVITAMIN with MINERAL TABLET. PO SCH (08:48)
[2020-12-25] MEDS: THIAMINE 100 MG TABLET. PO SCH ×2 (08:48→20:30)
[2020-12-25] MEDS: LACTOBACILLUS RHAMNOSUS GG 1 CAPSULE. PO SCH ×2 (08:48→20:30)
[2020-12-25] MEDS: amLODIPine BESYLATE 10 MG TABLET PO SCH (08:48)
[2020-12-25] MEDS: LIDOCAINE (700MG/PATCH) PATCH. TD SCH (08:49)
--- NOTE | 2020-12-25 09:39 | NUR ---
Patient wandering halls. Patient compliant and pleasant towards staff. Patient confused but express no further needs at this time.
[2020-12-25 16:39] VITALS: BP 112/73
[2020-12-25] MEDS: traZODone 50 MG TABLET. PO PRN (20:31)
[2020-12-25] MEDS: DIVALPROEX ER 500 MG TAB.ER.24H PO SCH (20:31)
[2020-12-25] MEDS: AMITRIPTYLINE HCL 50 MG TABLET PO SCH (20:32)
[2020-12-25] MEDS: MELATONIN 3 MG TABLET PO SCH (20:32)
[2020-12-25] MEDS: ATORVASTATIN CALCIUM 20 MG TABLET PO SCH (20:32)
--- NOTE | 2020-12-25 21:04 | PDOC ---
Exam Note: Gus Note: This note is a late entry for 12/23/2020 covers elements not covered in my initial note. Subjective: The patient was seen face to face in the evening of 12/23/2020 with Charmaine OVIEDO. Discussed with nursing staff, reviewed the chart. The patient slept 2-1/4 hours previous night. He has been restless, intrusive, confused. He received Zyprexa p.r.n. He was trying to scratch at nursing staff Add[place], then was pulling off the necklace of a nursing staff and broke the necklace after staff member was trying to redirect him. Review of Systems: No CV, , pulmonary, eye, ENT system symptoms on review. Reliability poor. Mental Status Exam: The patient is oriented to himself. Insight and judgment, recent and remote memory, attention and concentration, fund of knowledge is poor consistent with his diagnosis. No suicidal or homicidal ideation. Laboratory Data: Reviewed. Impression: Major neurocognitive disorder Alzheimer vascular with delusion, depression, behavioral disturbance. Anxiety disorder unspecified. Impulse control disorder unspecified. Plan: No change from initial note. The patient slept poorly previous night 2- 1/4 hours. We have increased amitriptyline from 25 mg h.s. to 50 mg h.s. Increase Seroquel from 12.5 mg twice a day 25 mg h.s. to 25 mg t.i.d. Adjust further as clinically indicated. Assessment: Vital Signs/I&O: Vital Signs Date Time Temp Pulse Resp B/P (MAP) Pulse Ox O2 Delivery O2 Flow Rate FiO2 12/25/20 17:15 86 112/73 12/25/20 16:39 98.0 20 96 12/25/20 06:35 Room Air I & O 12/24/20 12/24/20 12/25/20 15:00 23:00 07:00 Intake Total 480 ml 480 ml Balance 480 ml 480 ml Current Medications: Meds: Current Medications Medications (Trade) Dose Ordered Sig/Evaristo Route PRN Reason Start Time Stop Time Status Last Admin Dose Admin Acetaminophen (Tylenol) 650 mg PRN Q6HRS PRN PO MILD PAIN / TEMP > 100.3'F 11/25/20 18:00 Multi-Ingredient Ointment (Analgesic [place]) 1 addison PRN QID PRN TP MUSCLE PAIN 11/25/20 18:00 Al Hydroxide/Mg Hydroxide (Mylanta Plus Xs) 15 ml PRN AFTMEALHC PRN PO DYSPEPSIA 11/25/20 18:00 12/10/20 18:52 Magnesium Hydroxide (Milk Of Magnesia) 2,400 mg PRN QHS PRN PO CONSTIPATION 11/25/20 18:00 12/13/20 08:36 Amlodipine Besylate (Norvasc) 10 mg DAILY PO 11/26/20 09:00 12/25/20 08:48 Aspirin (Aspirin Chewable) 81 mg DAILY PO 11/26/20 09:00 12/25/20 08:48 Carvedilol (Coreg) 6.25 mg BIDWMEALS PO 11/25/20 18:30 12/25/20 17:15 Lisinopril (Prinivil) 10 mg DAILY PO 11/26/20 09:00 11/26/20 16:16 DC Quetiapine Fumarate (SEROquel) 25 mg QHS PO 11/25/20 21:00 12/23/20 17:23 DC 12/22/20 20:04 Tamsulosin HCl (Flomax) 0.4 mg DAILY PO 11/26/20 09:00 12/25/20 08:48 Amoxicillin (Amoxil) 500 mg [id number] PO 11/25/20 21:00 12/02/20 14:01 DC 12/02/20 14:15 Atorvastatin Calcium (Lipitor) 40 mg QHS PO 11/25/20 21:00 12/25/20 20:32 Folic Acid (Folic Acid) 1 mg DAILY PO 11/26/20 09:00 12/25/20 08:47 Lidocaine (Lidoderm) 1 patch DAILY TD 11/26/20 09:00 12/25/20 08:49 Multivitamins/ Calcium (Thera-M Plus) 1 tab DAILY PO 11/26/20 09:00 12/25/20 08:48 Thiamine HCl (Vitamin B-1) 100 mg BID PO 11/25/20 21:00 12/25/20 20:30 Olanzapine (ZyPREXA ZYDIS) 2.5 mg PRN Q2HR PRN PO PSYCHOSIS 11/25/20 21:15 12/23/20 08:12 Trazodone HCl (Desyrel) 50 mg PRN QHS PRN PO INSOMNIA, MAY REPEAT IN 1HR 11/25/20 21:15 12/25/20 20:31 Mirtazapine (Remeron) 7.5 mg QHS PO 11/26/20 21:00 11/28/20 12:23 DC 11/27/20 20:00 Lactobacillus Rhamnosus (Culturelle) 1 cap BID PO 11/27/20 09:00 12/25/20 20:30 Sertraline HCl (Zoloft) 25 mg DAILY PO 11/28/20 09:00 11/30/20 09:01 DC 11/30/20 08:39 Sertraline HCl (Zoloft) 50 mg DAILY PO 12/01/20 09:00 12/03/20 11:00 DC 12/03/20 08:05 Mirtazapine (Remeron) 15 mg QHS PO 11/28/20 21:00 11/29/20 18:47 DC 11/28/20 19:38 Hydroxyzine HCl (Atarax) 25 mg PRN Q2HR PRN PO ABDOMINAL CRAMPS 11/28/20 21:45 12/20/20 12:09 Lorazepam (Ativan) 0.5 mg PRN Q4HRS PRN PO ANXIETY / AGITATION 11/28/20 21:45 11/29/20 21:45 DC Amitriptyline HCl (Elavil) 25 mg QHS PO 11/29/20 21:00 12/23/20 17:23 DC 12/22/20 20:04 Melatonin (Melatonin) 3 mg QHS PO 11/29/20 21:00 12/25/20 20:32 Sertraline HCl (Zoloft) 75 mg DAILY PO 12/04/20 09:00 12/25/20 08:48 Divalproex Sodium (Depakote Er) 500 mg QHS PO 12/02/20 21:00 12/05/20 12:29 DC 12/04/20 20:08 Divalproex Sodium (Depakote Er) 1,000 mg QHS PO 12/05/20 21:00 12/25/20 20:31 Quetiapine Fumarate (SEROquel) 12.5 mg DAILY PO 12/17/20 09:00 12/18/20 16:46 DC 12/18/20 08:01 Quetiapine Fumarate (SEROquel) 12.5 mg [id number] PO 12/19/20 09:00 12/23/20 17:23 DC 12/23/20 13:28 Quetiapine Fumarate (SEROquel) 25 mg TID PO 12/23/20 17:30 12/25/20 20:30 Amitriptyline HCl (Elavil) 50 mg QHS PO 12/23/20 21:00 12/25/20 20:32 I have reviewed the current psychotropics carefully including drug interactions. Risk benefit ratio favors no change other than as noted in my dictated progress note. Diagnosis: Problems: (1) Major neurocognitive disorder (2) Impulse control disorder, unspecified (3) Anxiety disorder, unspecified (4) Dementia, vascular, with depression (5) Dementia, vascular, with delusions (6) Dementia in Alzheimer's disease with depression (7) Dementia in Alzheimer's disease with delusions (8) Dementia of the Alzheimer's type with early onset with behavioral d DONA Ruiz MD Dec 25, 2020 21:04
--- NOTE | 2020-12-25 21:39 | PDOC ---
Exam Note: Gus Note: This note is a late entry for 12/24/2020 covers elements not covered in my initial note. Subjective: The patient was seen face to face in the evening of 12/24/2020 with Amie OVIEDO. Discussed with nursing staff, reviewed the chart. The patient slept 7-1/4 hours previous night. He remains confused, more anxious, agitated, attempting to elope in the evening with trazodone and Zyprexa. Review of Systems: No CV, , pulmonary, eye, ENT system symptoms on review. Mental Status Exam: The patient is oriented to himself. Insight and judgment, recent and remote memory, attention and concentration, fund of knowledge is poor consistent with his diagnosis. No suicidal or homicidal ideation. Laboratory Data: Reviewed. Impression: Major neurocognitive disorder Alzheimer vascular with delusion, depression, behavioral disturbance. Anxiety disorder unspecified. Impulse control disorder unspecified. Plan: No change from initial note. Assessment: Vital Signs/I&O: Vital Signs Date Time Temp Pulse Resp B/P (MAP) Pulse Ox O2 Delivery O2 Flow Rate FiO2 12/25/20 17:15 86 112/73 12/25/20 16:39 98.0 20 96 12/25/20 06:35 Room Air I & O 12/24/20 12/24/20 12/25/20 14:59 22:59 06:59 Intake Total 480 ml 480 ml Balance 480 ml 480 ml Current Medications: Meds: Current Medications Medications (Trade) Dose Ordered Sig/Evaristo Route PRN Reason Start Time Stop Time Status Last Admin Dose Admin Acetaminophen (Tylenol) 650 mg PRN Q6HRS PRN PO MILD PAIN / TEMP > 100.3'F 11/25/20 18:00 Multi-Ingredient Ointment (Analgesic [place]) 1 addison PRN QID PRN TP MUSCLE PAIN 11/25/20 18:00 Al Hydroxide/Mg Hydroxide (Mylanta Plus Xs) 15 ml PRN AFTMEALHC PRN PO DYSPEPSIA 11/25/20 18:00 12/10/20 18:52 Magnesium Hydroxide (Milk Of Magnesia) 2,400 mg PRN QHS PRN PO CONSTIPATION 11/25/20 18:00 12/13/20 08:36 Amlodipine Besylate (Norvasc) 10 mg DAILY PO 11/26/20 09:00 12/25/20 08:48 Aspirin (Aspirin Chewable) 81 mg DAILY PO 11/26/20 09:00 12/25/20 08:48 Carvedilol (Coreg) 6.25 mg BIDWMEALS PO 11/25/20 18:30 12/25/20 17:15 Lisinopril (Prinivil) 10 mg DAILY PO 11/26/20 09:00 11/26/20 16:16 DC Quetiapine Fumarate (SEROquel) 25 mg QHS PO 11/25/20 21:00 12/23/20 17:23 DC 12/22/20 20:04 Tamsulosin HCl (Flomax) 0.4 mg DAILY PO 11/26/20 09:00 12/25/20 08:48 Amoxicillin (Amoxil) 500 mg [id number] PO 11/25/20 21:00 12/02/20 14:01 DC 12/02/20 14:15 Atorvastatin Calcium (Lipitor) 40 mg QHS PO 11/25/20 21:00 12/25/20 20:32 Folic Acid (Folic Acid) 1 mg DAILY PO 11/26/20 09:00 12/25/20 08:47 Lidocaine (Lidoderm) 1 patch DAILY TD 11/26/20 09:00 12/25/20 08:49 Multivitamins/ Calcium (Thera-M Plus) 1 tab DAILY PO 11/26/20 09:00 12/25/20 08:48 Thiamine HCl (Vitamin B-1) 100 mg BID PO 11/25/20 21:00 12/25/20 20:30 Olanzapine (ZyPREXA ZYDIS) 2.5 mg PRN Q2HR PRN PO PSYCHOSIS 11/25/20 21:15 12/23/20 08:12 Trazodone HCl (Desyrel) 50 mg PRN QHS PRN PO INSOMNIA, MAY REPEAT IN 1HR 11/25/20 21:15 12/25/20 20:31 Mirtazapine (Remeron) 7.5 mg QHS PO 11/26/20 21:00 11/28/20 12:23 DC 11/27/20 20:00 Lactobacillus Rhamnosus (Culturelle) 1 cap BID PO 11/27/20 09:00 12/25/20 20:30 Sertraline HCl (Zoloft) 25 mg DAILY PO 11/28/20 09:00 11/30/20 09:01 DC 11/30/20 08:39 Sertraline HCl (Zoloft) 50 mg DAILY PO 12/01/20 09:00 12/03/20 11:00 DC 12/03/20 08:05 Mirtazapine (Remeron) 15 mg QHS PO 11/28/20 21:00 11/29/20 18:47 DC 11/28/20 19:38 Hydroxyzine HCl (Atarax) 25 mg PRN Q2HR PRN PO ABDOMINAL CRAMPS 11/28/20 21:45 12/20/20 12:09 Lorazepam (Ativan) 0.5 mg PRN Q4HRS PRN PO ANXIETY / AGITATION 11/28/20 21:45 11/29/20 21:45 DC Amitriptyline HCl (Elavil) 25 mg QHS PO 11/29/20 21:00 12/23/20 17:23 DC 12/22/20 20:04 Melatonin (Melatonin) 3 mg QHS PO 11/29/20 21:00 12/25/20 20:32 Sertraline HCl (Zoloft) 75 mg DAILY PO 12/04/20 09:00 12/25/20 08:48 Divalproex Sodium (Depakote Er) 500 mg QHS PO 12/02/20 21:00 12/05/20 12:29 DC 12/04/20 20:08 Divalproex Sodium (Depakote Er) 1,000 mg QHS PO 12/05/20 21:00 12/25/20 20:31 Quetiapine Fumarate (SEROquel) 12.5 mg DAILY PO 12/17/20 09:00 12/18/20 16:46 DC 12/18/20 08:01 Quetiapine Fumarate (SEROquel) 12.5 mg [id number] PO 12/19/20 09:00 12/23/20 17:23 DC 12/23/20 13:28 Quetiapine Fumarate (SEROquel) 25 mg TID PO 12/23/20 17:30 12/25/20 20:30 Amitriptyline HCl (Elavil) 50 mg QHS PO 12/23/20 21:00 12/25/20 20:32 I have reviewed the current psychotropics carefully including drug interactions. Risk benefit ratio favors no change other than as noted in my dictated progress note. Diagnosis: Problems: (1) Major neurocognitive disorder (2) Impulse control disorder, unspecified (3) Anxiety disorder, unspecified (4) Dementia, vascular, with depression (5) Dementia, vascular, with delusions (6) Dementia in Alzheimer's disease with depression (7) Dementia in Alzheimer's disease with delusions (8) Dementia of the Alzheimer's type with early onset with behavioral disturbance DONA BOTELLO MD Dec 25, 2020 21:39
[2020-12-26] MEDS: ACETAMINOPHEN 325 MG TABLET PO PRN (06:17)
[2020-12-26 06:20] VITALS: BP 182/95
[2020-12-26] MEDS: QUEtiapine 25 MG TABLET. PO SCH ×3 (08:19→19:27)
[2020-12-26] MEDS: FOLIC ACID 1 MG TABLET PO SCH (08:19)
[2020-12-26] MEDS: THIAMINE 100 MG TABLET. PO SCH ×2 (08:19→19:27)
[2020-12-26] MEDS: CARVEDILOL 6.25 MG TABLET PO SCH ×2 (08:19→16:34)
[2020-12-26] MEDS: TAMSULOSIN 0.4 MG CAP.ER.24H. PO SCH (08:19)
[2020-12-26] MEDS: LACTOBACILLUS RHAMNOSUS GG 1 CAPSULE. PO SCH ×2 (08:19→19:27)
[2020-12-26] MEDS: ASPIRIN CHEWABLE 81 MG TABLET. PO SCH (08:19)
[2020-12-26] MEDS: amLODIPine BESYLATE 10 MG TABLET PO SCH (08:20)
[2020-12-26] MEDS: MULTIVITAMIN with MINERAL TABLET. PO SCH (08:20)
[2020-12-26] MEDS: SERTRALINE 25 MG TABLET. PO SCH (08:20)
[2020-12-26] MEDS: LIDOCAINE (700MG/PATCH) PATCH. TD SCH (08:22)
--- NOTE | 2020-12-26 08:22 | PDOC ---
Exam Note: Gus Note: This note is a late entry for 12/25/2020 covers elements not covered in my initial note. Subjective: The patient was seen face to face in the evening of 12/25/2020 with Micha OVIEDO. Discussed with nursing staff, reviewed the chart. The patient slept 5 hours previous night. He remains confused, wandering, otherwise, calm. Review of Systems: No CV, , pulmonary, eye, ENT system symptoms on review. Reliability poor. Mental Status Exam: The patient is oriented to himself. Insight and judgment, recent and remote memory, attention and concentration, fund of knowledge is poor consistent with his diagnosis. No suicidal or homicidal ideation. Laboratory Data: Reviewed. Impression: Major neurocognitive disorder Alzheimer vascular with delusion, depression, behavioral disturbance. Anxiety disorder unspecified. Impulse control disorder unspecified. Plan: No change from initial note. Assessment: Vital Signs/I&O: Vital Signs Date Time Temp Pulse Resp B/P (MAP) Pulse Ox O2 Delivery O2 Flow Rate FiO2 12/26/20 06:20 98.1 75 18 182/95 (124) 98 Room Air I & O 12/25/20 12/25/20 12/26/20 15:00 23:00 07:00 Intake Total 240 ml 120 ml Balance 240 ml 120 ml Current Medications: Meds: Current Medications Medications (Trade) Dose Ordered Sig/Evaristo Route PRN Reason Start Time Stop Time Status Last Admin Dose Admin Acetaminophen (Tylenol) 650 mg PRN Q6HRS PRN PO MILD PAIN / TEMP > 100.3'F 11/25/20 18:00 12/26/20 06:17 Multi-Ingredient Ointment (Analgesic [place]) 1 addison PRN QID PRN TP MUSCLE PAIN 11/25/20 18:00 Al Hydroxide/Mg Hydroxide (Mylanta Plus Xs) 15 ml PRN AFTMEALHC PRN PO DYSPEPSIA 11/25/20 18:00 12/10/20 18:52 Magnesium Hydroxide (Milk Of Magnesia) 2,400 mg PRN QHS PRN PO CONSTIPATION 11/25/20 18:00 12/13/20 08:36 Amlodipine Besylate (Norvasc) 10 mg DAILY PO 11/26/20 09:00 12/25/20 08:48 Aspirin (Aspirin Chewable) 81 mg DAILY PO 11/26/20 09:00 12/25/20 08:48 Carvedilol (Coreg) 6.25 mg BIDWMEALS PO 11/25/20 18:30 12/25/20 17:15 Lisinopril (Prinivil) 10 mg DAILY PO 11/26/20 09:00 11/26/20 16:16 DC Quetiapine Fumarate (SEROquel) 25 mg QHS PO 11/25/20 21:00 12/23/20 17:23 DC 12/22/20 20:04 Tamsulosin HCl (Flomax) 0.4 mg DAILY PO 11/26/20 09:00 12/25/20 08:48 Amoxicillin (Amoxil) 500 mg [id number] PO 11/25/20 21:00 12/02/20 14:01 DC 12/02/20 14:15 Atorvastatin Calcium (Lipitor) 40 mg QHS PO 11/25/20 21:00 12/25/20 20:32 Folic Acid (Folic Acid) 1 mg DAILY PO 11/26/20 09:00 12/25/20 08:47 Lidocaine (Lidoderm) 1 patch DAILY TD 11/26/20 09:00 12/25/20 08:49 Multivitamins/ Calcium (Thera-M Plus) 1 tab DAILY PO 11/26/20 09:00 12/25/20 08:48 Thiamine HCl (Vitamin B-1) 100 mg BID PO 11/25/20 21:00 12/25/20 20:30 Olanzapine (ZyPREXA ZYDIS) 2.5 mg PRN Q2HR PRN PO PSYCHOSIS 11/25/20 21:15 12/23/20 08:12 Trazodone HCl (Desyrel) 50 mg PRN QHS PRN PO INSOMNIA, MAY REPEAT IN 1HR 11/25/20 21:15 12/25/20 20:31 Mirtazapine (Remeron) 7.5 mg QHS PO 11/26/20 21:00 11/28/20 12:23 DC 11/27/20 20:00 Lactobacillus Rhamnosus (Culturelle) 1 cap BID PO 11/27/20 09:00 12/25/20 20:30 Sertraline HCl (Zoloft) 25 mg DAILY PO 11/28/20 09:00 11/30/20 09:01 DC 11/30/20 08:39 Sertraline HCl (Zoloft) 50 mg DAILY PO 12/01/20 09:00 12/03/20 11:00 DC 12/03/20 08:05 Mirtazapine (Remeron) 15 mg QHS PO 11/28/20 21:00 11/29/20 18:47 DC 11/28/20 19:38 Hydroxyzine HCl (Atarax) 25 mg PRN Q2HR PRN PO ABDOMINAL CRAMPS 11/28/20 21:45 12/20/20 12:09 Lorazepam (Ativan) 0.5 mg PRN Q4HRS PRN PO ANXIETY / AGITATION 11/28/20 21:45 11/29/20 21:45 DC Amitriptyline HCl (Elavil) 25 mg QHS PO 11/29/20 21:00 12/23/20 17:23 DC 12/22/20 20:04 Melatonin (Melatonin) 3 mg QHS PO 11/29/20 21:00 12/25/20 20:32 Sertraline HCl (Zoloft) 75 mg DAILY PO 12/04/20 09:00 12/25/20 08:48 Divalproex Sodium (Depakote Er) 500 mg QHS PO 12/02/20 21:00 12/05/20 12:29 DC 12/04/20 20:08 Divalproex Sodium (Depakote Er) 1,000 mg QHS PO 12/05/20 21:00 12/25/20 20:31 Quetiapine Fumarate (SEROquel) 12.5 mg DAILY PO 12/17/20 09:00 12/18/20 16:46 DC 12/18/20 08:01 Quetiapine Fumarate (SEROquel) 12.5 mg [id number] PO 12/19/20 09:00 12/23/20 17:23 DC 12/23/20 13:28 Quetiapine Fumarate (SEROquel) 25 mg TID PO 12/23/20 17:30 12/25/20 20:30 Amitriptyline HCl (Elavil) 50 mg QHS PO 12/23/20 21:00 12/25/20 20:32 I have reviewed the current psychotropics carefully including drug interactions. Risk benefit ratio favors no change other than as noted in my dictated progress note. Diagnosis: Problems: (1) Major neurocognitive disorder (2) Impulse control disorder, unspecified (3) Anxiety disorder, unspecified (4) Dementia, vascular, with depression (5) Dementia, vascular, with delusions (6) Dementia in Alzheimer's disease with depression (7) Dementia in Alzheimer's disease with delusions (8) Dementia of the Alzheimer's type with early onset with behavioral disturbance DONA BOTELLO MD Dec 26, 2020 08:22
--- NOTE | 2020-12-26 12:07 | NUR ---
WEEKLY ACTIVITY THERAPY NOTE Date of Admission: 11/25/2020 Date of AT Assessment: 11/28/2020 Precipitating behaviors that initiated intake and admission: Patient was reported to be confused, agitated, delusional, hallucinating, removing IVs, and not cooperating with cares at [address] [facility]. Goal aimed: to increase engagement and socialization Initial Goal: Pt. will participate in at least one Activity Therapy group per day. Weekly progress towards goal: did not achieve, no groups on Saturday Group participation level: 5 min, 4 mod, 2 full Weekly highlights: acting out charades on Saturday, drumming on Saturday Behaviors observed: increased wandering and confusion this week, exit seeking in group and attempts to leave unit, able to engage in group when around and prompted/ encouraged Plan: no change to goal Beneficial adaptations:
--- NOTE | 2020-12-26 14:18 | NUR ---
Patient laying in bed at time of assessment. Patient sits up to take medications and takes them whole with no problems. Patient is calm but confused and forgetful. Patient did get frustrated at one point in the morning and was placed in the quiet sarkar until after lunch. He has not displayed any further behaviors today. He has no complaints and there are no further concerns at this time.
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
[2020-12-26 16:24] VITALS: BP 133/85
[2020-12-26] MEDS: ATORVASTATIN CALCIUM 20 MG TABLET PO SCH (19:26)
[2020-12-26] MEDS: traZODone 50 MG TABLET. PO PRN ×2 (19:26→20:54)
[2020-12-26] MEDS: DIVALPROEX ER 500 MG TAB.ER.24H PO SCH (19:27)
[2020-12-26] MEDS: AMITRIPTYLINE HCL 50 MG TABLET PO SCH (19:27)
[2020-12-26] MEDS: MELATONIN 3 MG TABLET PO SCH (19:27)
[2020-12-26] MEDS: hydrOXYzine HCL 25 MG TABLET PO PRN (20:54)
--- NOTE | 2020-12-26 21:04 | PDOC ---
Exam Note: Gus Note: Please also refer to the separate dictated note~for this date of service dictated separately.~Patient seen individually. Discussed the patient with Nursing staff reviewed the chart.~Reviewed interim history and current functioning. Reviewed vital signs,~Labs/ Radiology~and current medications noted below. Continue current treatment with the changes noted in the dictated addendum note Assessment: Vital Signs/I&O: Vital Signs Date Time Temp Pulse Resp B/P (MAP) Pulse Ox O2 Delivery O2 Flow Rate FiO2 12/26/20 16:34 84 133/85 12/26/20 16:24 97.3 20 98 12/26/20 06:20 Room Air I & O 12/25/20 12/25/20 12/26/20 14:59 22:59 06:59 Intake Total 240 ml 120 ml Balance 240 ml 120 ml Current Medications: Meds: Current Medications Medications (Trade) Dose Ordered Sig/Evaristo Route PRN Reason Start Time Stop Time Status Last Admin Dose Admin Acetaminophen (Tylenol) 650 mg PRN Q6HRS PRN PO MILD PAIN / TEMP > 100.3'F 11/25/20 18:00 12/26/20 06:17 Multi-Ingredient Ointment (Analgesic [place]) 1 addison PRN QID PRN TP MUSCLE PAIN 11/25/20 18:00 Al Hydroxide/Mg Hydroxide (Mylanta Plus Xs) 15 ml PRN AFTMEALHC PRN PO DYSPEPSIA 11/25/20 18:00 12/10/20 18:52 Magnesium Hydroxide (Milk Of Magnesia) 2,400 mg PRN QHS PRN PO CONSTIPATION 11/25/20 18:00 12/13/20 08:36 Amlodipine Besylate (Norvasc) 10 mg DAILY PO 11/26/20 09:00 12/26/20 08:20 Aspirin (Aspirin Chewable) 81 mg DAILY PO 11/26/20 09:00 12/26/20 08:19 Carvedilol (Coreg) 6.25 mg BIDWMEALS PO 11/25/20 18:30 12/26/20 16:34 Lisinopril (Prinivil) 10 mg DAILY PO 11/26/20 09:00 11/26/20 16:16 DC Quetiapine Fumarate (SEROquel) 25 mg QHS PO 11/25/20 21:00 12/23/20 17:23 DC 12/22/20 20:04 Tamsulosin HCl (Flomax) 0.4 mg DAILY PO 11/26/20 09:00 12/26/20 08:19 Amoxicillin (Amoxil) 500 mg [id number] PO 11/25/20 21:00 12/02/20 14:01 DC 12/02/20 14:15 Atorvastatin Calcium (Lipitor) 40 mg QHS PO 11/25/20 21:00 12/26/20 19:26 Folic Acid (Folic Acid) 1 mg DAILY PO 11/26/20 09:00 12/26/20 08:19 Lidocaine (Lidoderm) 1 patch DAILY TD 11/26/20 09:00 12/26/20 08:22 Multivitamins/ Calcium (Thera-M Plus) 1 tab DAILY PO 11/26/20 09:00 12/26/20 08:20 Thiamine HCl (Vitamin B-1) 100 mg BID PO 11/25/20 21:00 12/26/20 19:27 Olanzapine (ZyPREXA ZYDIS) 2.5 mg PRN Q2HR PRN PO PSYCHOSIS 11/25/20 21:15 12/26/20 19:27 Trazodone HCl (Desyrel) 50 mg PRN QHS PRN PO INSOMNIA, MAY REPEAT IN 1HR 11/25/20 21:15 12/26/20 20:54 Mirtazapine (Remeron) 7.5 mg QHS PO 11/26/20 21:00 11/28/20 12:23 DC 11/27/20 20:00 Lactobacillus Rhamnosus (Culturelle) 1 cap BID PO 11/27/20 09:00 12/26/20 19:27 Sertraline HCl (Zoloft) 25 mg DAILY PO 11/28/20 09:00 11/30/20 09:01 DC 11/30/20 08:39 Sertraline HCl (Zoloft) 50 mg DAILY PO 12/01/20 09:00 12/03/20 11:00 DC 12/03/20 08:05 Mirtazapine (Remeron) 15 mg QHS PO 11/28/20 21:00 11/29/20 18:47 DC 11/28/20 19:38 Hydroxyzine HCl (Atarax) 25 mg PRN Q2HR PRN PO ABDOMINAL CRAMPS 11/28/20 21:45 12/26/20 20:54 Lorazepam (Ativan) 0.5 mg PRN Q4HRS PRN PO ANXIETY / AGITATION 11/28/20 21:45 11/29/20 21:45 DC Amitriptyline HCl (Elavil) 25 mg QHS PO 11/29/20 21:00 12/23/20 17:23 DC 12/22/20 20:04 Melatonin (Melatonin) 3 mg QHS PO 11/29/20 21:00 12/26/20 19:27 Sertraline HCl (Zoloft) 75 mg DAILY PO 12/04/20 09:00 12/26/20 08:20 Divalproex Sodium (Depakote Er) 500 mg QHS PO 12/02/20 21:00 12/05/20 12:29 DC 12/04/20 20:08 Divalproex Sodium (Depakote Er) 1,000 mg QHS PO 12/05/20 21:00 12/26/20 19:27 Quetiapine Fumarate (SEROquel) 12.5 mg DAILY PO 12/17/20 09:00 12/18/20 16:46 DC 12/18/20 08:01 Quetiapine Fumarate (SEROquel) 12.5 mg [id number] PO 12/19/20 09:00 12/23/20 17:23 DC 12/23/20 13:28 Quetiapine Fumarate (SEROquel) 25 mg TID PO 12/23/20 17:30 12/26/20 19:27 Amitriptyline HCl (Elavil) 50 mg QHS PO 12/23/20 21:00 12/26/20 19:27 I have reviewed the current psychotropics carefully including drug interactions. Risk benefit ratio favors no change other than as noted in my dictated progress note. Diagnosis: Problems: (1) Major neurocognitive disorder (2) Impulse control disorder, unspecified (3) Anxiety disorder, unspecified (4) Dementia, vascular, with depression (5) Dementia, vascular, with delusions (6) Dementia in Alzheimer's disease with depression (7) Dementia in Alzheimer's disease with delusions (8) Dementia of the Alzheimer's type with early onset with behavioral disturbance DONA BOTELLO MD Dec 26, 2020 21:04
--- NOTE | 2020-12-26 22:04 | NUR ---
Nursing Note: Pt wandering in hallway at shift change. Pt confused, exit seeking, and delusional- he thinks he needs to get out and that he has to leave tonight, difficult to re-direct this evening. Pt cooperative with assessment and compliant with medications administered whole. PRN Trazodone and PRN Zydis administered with HS medications. Repeat PRN Trazodone and PRN Atarax administered @2053 as pt continued to wander, exit seek, and was going in to other pt rooms.
[2020-12-27] MEDS: hydrOXYzine HCL 25 MG TABLET PO PRN (04:18)
--- NOTE | 2020-12-27 04:21 | NUR ---
Nursing Note: Pt up wandering, going into other pt rooms, and exit seeking. Pt became increasingly more agitated with staff attempts to re-direct and therefore was placed in the West hallway. Pt remained agitated and anxious demanding to be let out. Pt knocking on windows and doors, shaking door handles. Staff attempted to re-direct and re-orient pt but it only caused pt to become more agitated and he began yelling. Pt thinks he needs to clean the rooms and that is why he was going into other rooms. PRN Zydis and PRN Atarax administered at this time.
[2020-12-27 06:40] VITALS: BP 159/91
[2020-12-27] MEDS: TAMSULOSIN 0.4 MG CAP.ER.24H. PO SCH (09:04)
[2020-12-27] MEDS: FOLIC ACID 1 MG TABLET PO SCH (09:04)
[2020-12-27] MEDS: ASPIRIN CHEWABLE 81 MG TABLET. PO SCH (09:04)
[2020-12-27] MEDS: SERTRALINE 25 MG TABLET. PO SCH (09:04)
[2020-12-27] MEDS: MULTIVITAMIN with MINERAL TABLET. PO SCH (09:04)
[2020-12-27] MEDS: LACTOBACILLUS RHAMNOSUS GG 1 CAPSULE. PO SCH ×2 (09:05→19:48)
[2020-12-27] MEDS: CARVEDILOL 6.25 MG TABLET PO SCH ×2 (09:05→17:00)
[2020-12-27] MEDS: LIDOCAINE (700MG/PATCH) PATCH. TD SCH (09:05)
[2020-12-27] MEDS: THIAMINE 100 MG TABLET. PO SCH ×2 (09:05→19:48)
[2020-12-27] MEDS: amLODIPine BESYLATE 10 MG TABLET PO SCH (09:05)
[2020-12-27] MEDS: QUEtiapine 25 MG TABLET. PO SCH ×3 (09:05→19:47)
--- NOTE | 2020-12-27 09:43 | NUR ---
Patient is sleeping until about 930. Once awake we went to his room for assessment. He takes his medications whole with no problems. Patient is calm and cooperative but very confused and forgetful. He is unaware of where he is and how long he has been here and continues to exit seek. There are no further complaints or concerns at this time.
[2020-12-27 15:28] VITALS: BP 143/80
[2020-12-27] MEDS: MELATONIN 3 MG TABLET PO SCH (19:47)
[2020-12-27] MEDS: DIVALPROEX ER 500 MG TAB.ER.24H PO SCH (19:47)
[2020-12-27] MEDS: AMITRIPTYLINE HCL 50 MG TABLET PO SCH (19:47)
[2020-12-27] MEDS: ATORVASTATIN CALCIUM 20 MG TABLET PO SCH (19:48)
[2020-12-27] MEDS: traZODone 50 MG TABLET. PO PRN (19:48)
--- NOTE | 2020-12-27 21:00 | PDOC ---
Exam Note: Gus Note: Please also refer to the separate dictated note~for this date of service dictated separately.~Patient seen individually. Discussed the patient with Nursing staff reviewed the chart.~Reviewed interim history and current functioning. Reviewed vital signs,~Labs/ Radiology~and current medications noted below. Continue current treatment with the changes noted in the dictated addendum note Assessment: Vital Signs/I&O: Vital Signs Date Time Temp Pulse Resp B/P (MAP) Pulse Ox O2 Delivery O2 Flow Rate FiO2 12/27/20 17:00 62 143/80 12/27/20 15:28 96.9 16 98 12/27/20 06:40 Room Air I & O 12/26/20 12/26/20 12/27/20 15:00 23:00 07:00 Intake Total 480 ml 120 ml Balance 480 ml 120 ml Current Medications: Meds: Current Medications Medications (Trade) Dose Ordered Sig/Evaristo Route PRN Reason Start Time Stop Time Status Last Admin Dose Admin Acetaminophen (Tylenol) 650 mg PRN Q6HRS PRN PO MILD PAIN / TEMP > 100.3'F 11/25/20 18:00 12/26/20 06:17 Multi-Ingredient Ointment (Analgesic [place]) 1 addison PRN QID PRN TP MUSCLE PAIN 11/25/20 18:00 Al Hydroxide/Mg Hydroxide (Mylanta Plus Xs) 15 ml PRN AFTMEALHC PRN PO DYSPEPSIA 11/25/20 18:00 12/10/20 18:52 Magnesium Hydroxide (Milk Of Magnesia) 2,400 mg PRN QHS PRN PO CONSTIPATION 11/25/20 18:00 12/13/20 08:36 Amlodipine Besylate (Norvasc) 10 mg DAILY PO 11/26/20 09:00 12/27/20 09:05 Aspirin (Aspirin Chewable) 81 mg DAILY PO 11/26/20 09:00 12/27/20 09:04 Carvedilol (Coreg) 6.25 mg BIDWMEALS PO 11/25/20 18:30 12/27/20 17:00 Lisinopril (Prinivil) 10 mg DAILY PO 11/26/20 09:00 11/26/20 16:16 DC Quetiapine Fumarate (SEROquel) 25 mg QHS PO 11/25/20 21:00 12/23/20 17:23 DC 12/22/20 20:04 Tamsulosin HCl (Flomax) 0.4 mg DAILY PO 11/26/20 09:00 12/27/20 09:04 Amoxicillin (Amoxil) 500 mg [id number] PO 11/25/20 21:00 12/02/20 14:01 DC 12/02/20 14:15 Atorvastatin Calcium (Lipitor) 40 mg QHS PO 11/25/20 21:00 12/27/20 19:48 Folic Acid (Folic Acid) 1 mg DAILY PO 11/26/20 09:00 12/27/20 09:04 Lidocaine (Lidoderm) 1 patch DAILY TD 11/26/20 09:00 12/27/20 09:05 Multivitamins/ Calcium (Thera-M Plus) 1 tab DAILY PO 11/26/20 09:00 12/27/20 09:04 Thiamine HCl (Vitamin B-1) 100 mg BID PO 11/25/20 21:00 12/27/20 19:48 Olanzapine (ZyPREXA ZYDIS) 2.5 mg PRN Q2HR PRN PO PSYCHOSIS 11/25/20 21:15 12/27/20 04:19 Trazodone HCl (Desyrel) 50 mg PRN QHS PRN PO INSOMNIA, MAY REPEAT IN 1HR 11/25/20 21:15 12/27/20 19:48 Mirtazapine (Remeron) 7.5 mg QHS PO 11/26/20 21:00 11/28/20 12:23 DC 11/27/20 20:00 Lactobacillus Rhamnosus (Culturelle) 1 cap BID PO 11/27/20 09:00 12/27/20 19:48 Sertraline HCl (Zoloft) 25 mg DAILY PO 11/28/20 09:00 11/30/20 09:01 DC 11/30/20 08:39 Sertraline HCl (Zoloft) 50 mg DAILY PO 12/01/20 09:00 12/03/20 11:00 DC 12/03/20 08:05 Mirtazapine (Remeron) 15 mg QHS PO 11/28/20 21:00 11/29/20 18:47 DC 11/28/20 19:38 Hydroxyzine HCl (Atarax) 25 mg PRN Q2HR PRN PO ABDOMINAL CRAMPS 11/28/20 21:45 12/27/20 04:18 Lorazepam (Ativan) 0.5 mg PRN Q4HRS PRN PO ANXIETY / AGITATION 11/28/20 21:45 11/29/20 21:45 DC Amitriptyline HCl (Elavil) 25 mg QHS PO 11/29/20 21:00 12/23/20 17:23 DC 12/22/20 20:04 Melatonin (Melatonin) 3 mg QHS PO 11/29/20 21:00 12/27/20 19:47 Sertraline HCl (Zoloft) 75 mg DAILY PO 12/04/20 09:00 12/27/20 09:04 Divalproex Sodium (Depakote Er) 500 mg QHS PO 12/02/20 21:00 12/05/20 12:29 DC 12/04/20 20:08 Divalproex Sodium (Depakote Er) 1,000 mg QHS PO 12/05/20 21:00 12/27/20 19:47 Quetiapine Fumarate (SEROquel) 12.5 mg DAILY PO 12/17/20 09:00 12/18/20 16:46 DC 12/18/20 08:01 Quetiapine Fumarate (SEROquel) 12.5 mg [id number] PO 12/19/20 09:00 12/23/20 17:23 DC 12/23/20 13:28 Quetiapine Fumarate (SEROquel) 25 mg TID PO 12/23/20 17:30 12/27/20 19:47 Amitriptyline HCl (Elavil) 50 mg QHS PO 12/23/20 21:00 12/27/20 19:47 I have reviewed the current psychotropics carefully including drug interactions. Risk benefit ratio favors no change other than as noted in my dictated progress note. Diagnosis: Problems: (1) Major neurocognitive disorder (2) Impulse control disorder, unspecified (3) Anxiety disorder, unspecified (4) Dementia, vascular, with depression (5) Dementia, vascular, with delusions (6) Dementia in Alzheimer's disease with depression (7) Dementia in Alzheimer's disease with delusions (8) Dementia of the Alzheimer's type with early onset with behavioral disturbance DONA BOTELLO MD Dec 27, 2020 21:00
--- NOTE | 2020-12-27 23:07 | NUR ---
Nursing Note: Pt wandering in hallway at shift change. Pt calm, disorganized, and pleasantly confused. Pt cooperative with assessment and compliant with medications administered whole. PRN Trazodone administered with HS medications.
[2020-12-28] MEDS: traZODone 50 MG TABLET. PO PRN ×4 (01:28→22:55)
[2020-12-28 06:23] VITALS: BP 157/92
[2020-12-28] MEDS: LACTOBACILLUS RHAMNOSUS GG 1 CAPSULE. PO SCH ×2 (08:16→20:15)
[2020-12-28] MEDS: amLODIPine BESYLATE 10 MG TABLET PO SCH (08:16)
[2020-12-28] MEDS: ASPIRIN CHEWABLE 81 MG TABLET. PO SCH (08:17)
[2020-12-28] MEDS: FOLIC ACID 1 MG TABLET PO SCH (08:17)
[2020-12-28] MEDS: CARVEDILOL 6.25 MG TABLET PO SCH ×2 (08:17→17:00)
[2020-12-28] MEDS: QUEtiapine 25 MG TABLET. PO SCH ×3 (08:17→20:15)
[2020-12-28] MEDS: MULTIVITAMIN with MINERAL TABLET. PO SCH (08:17)
[2020-12-28] MEDS: TAMSULOSIN 0.4 MG CAP.ER.24H. PO SCH (08:17)
[2020-12-28] MEDS: THIAMINE 100 MG TABLET. PO SCH ×2 (08:17→20:16)
[2020-12-28] MEDS: SERTRALINE 25 MG TABLET. PO SCH (08:17)
[2020-12-28] MEDS: LIDOCAINE (700MG/PATCH) PATCH. TD SCH (08:19)
--- NOTE | 2020-12-28 08:46 | NUR ---
PT IS RESTING IN BED AT TIME OF ASSESSMENT AND MEDICATION ADMINISTRATION. PT IS PEASANT AND COOPERATIVE WITH MEDICATIONS AND ASSESSMENT. PT IS SITTING UP EATING BREAKFAST IN ROOM AT THIS TIME. WILL CONTINUE TO MONITOR.
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
--- NOTE | 2020-12-28 09:15 | PDOC ---
Exam Note: Gus Note: This note is a late entry for 12/27/2020 covers elements not covered in my initial note. Subjective: The patient was seen face to face in the evening of 12/27/2020 with Addis OVIEDO. Discussed with nursing staff, reviewed the chart. The patient slept 5 hours previous night. Overall the patient remains confused, doing better, exit seeking, redirects, not aggressive, appeared somewhat tired. Review of Systems: No CV, , pulmonary, eye, ENT system symptoms on review. Reliability poor. Mental Status Exam: The patient is oriented to himself. Insight and judgment, recent and remote memory, attention and concentration, fund of knowledge is poor consistent with his diagnosis. No suicidal or homicidal ideation. Laboratory Data: Reviewed. Impression: Major neurocognitive disorder Alzheimer vascular with delusion, depression, behavioral disturbance. Anxiety disorder unspecified. Impulse control disorder unspecified. Plan: No change from initial note. Assessment: Vital Signs/I&O: Vital Signs Date Time Temp Pulse Resp B/P (MAP) Pulse Ox O2 Delivery O2 Flow Rate FiO2 12/28/20 08:17 89 157/92 12/28/20 06:23 97.2 19 99 Room Air I & O 12/27/20 12/27/20 12/28/20 15:00 23:00 07:00 Intake Total 560 ml 480 ml Balance 560 ml 480 ml Current Medications: Meds: Current Medications Medications (Trade) Dose Ordered Sig/Evaristo Route PRN Reason Start Time Stop Time Status Last Admin Dose Admin Acetaminophen (Tylenol) 650 mg PRN Q6HRS PRN PO MILD PAIN / TEMP > 100.3'F 11/25/20 18:00 12/26/20 06:17 Multi-Ingredient Ointment (Analgesic Vincent) 1 addison PRN QID PRN TP MUSCLE PAIN 11/25/20 18:00 Al Hydroxide/Mg Hydroxide (Mylanta Plus Xs) 15 ml PRN AFTMEALHC PRN PO DYSPEPSIA 11/25/20 18:00 12/10/20 18:52 Magnesium Hydroxide (Milk Of Magnesia) 2,400 mg PRN QHS PRN PO CONSTIPATION 11/25/20 18:00 12/13/20 08:36 Amlodipine Besylate (Norvasc) 10 mg DAILY PO 11/26/20 09:00 12/28/20 08:16 Aspirin (Aspirin Chewable) 81 mg DAILY PO 11/26/20 09:00 12/28/20 08:17 Carvedilol (Coreg) 6.25 mg BIDWMEALS PO 11/25/20 18:30 12/28/20 08:17 Lisinopril (Prinivil) 10 mg DAILY PO 11/26/20 09:00 11/26/20 16:16 DC Quetiapine Fumarate (SEROquel) 25 mg QHS PO 11/25/20 21:00 12/23/20 17:23 DC 12/22/20 20:04 Tamsulosin HCl (Flomax) 0.4 mg DAILY PO 11/26/20 09:00 12/28/20 08:17 Amoxicillin (Amoxil) 500 mg [id number] PO 11/25/20 21:00 12/02/20 14:01 DC 12/02/20 14:15 Atorvastatin Calcium (Lipitor) 40 mg QHS PO 11/25/20 21:00 12/27/20 19:48 Folic Acid (Folic Acid) 1 mg DAILY PO 11/26/20 09:00 12/28/20 08:17 Lidocaine (Lidoderm) 1 patch DAILY TD 11/26/20 09:00 12/28/20 08:19 Multivitamins/ Calcium (Thera-M Plus) 1 tab DAILY PO 11/26/20 09:00 12/28/20 08:17 Thiamine HCl (Vitamin B-1) 100 mg BID PO 11/25/20 21:00 12/28/20 08:17 Olanzapine (ZyPREXA ZYDIS) 2.5 mg PRN Q2HR PRN PO PSYCHOSIS 11/25/20 21:15 12/27/20 04:19 Trazodone HCl (Desyrel) 50 mg PRN QHS PRN PO INSOMNIA, MAY REPEAT IN 1HR 11/25/20 21:15 12/28/20 01:28 Mirtazapine (Remeron) 7.5 mg QHS PO 11/26/20 21:00 11/28/20 12:23 DC 11/27/20 20:00 Lactobacillus Rhamnosus (Culturelle) 1 cap BID PO 11/27/20 09:00 12/28/20 08:16 Sertraline HCl (Zoloft) 25 mg DAILY PO 11/28/20 09:00 11/30/20 09:01 DC 11/30/20 08:39 Sertraline HCl (Zoloft) 50 mg DAILY PO 12/01/20 09:00 12/03/20 11:00 DC 12/03/20 08:05 Mirtazapine (Remeron) 15 mg QHS PO 11/28/20 21:00 11/29/20 18:47 DC 11/28/20 19:38 Hydroxyzine HCl (Atarax) 25 mg PRN Q2HR PRN PO ABDOMINAL CRAMPS 11/28/20 21:45 12/27/20 04:18 Lorazepam (Ativan) 0.5 mg PRN Q4HRS PRN PO ANXIETY / AGITATION 11/28/20 21:45 11/29/20 21:45 DC Amitriptyline HCl (Elavil) 25 mg QHS PO 11/29/20 21:00 12/23/20 17:23 DC 12/22/20 20:04 Melatonin (Melatonin) 3 mg QHS PO 11/29/20 21:00 12/27/20 19:47 Sertraline HCl (Zoloft) 75 mg DAILY PO 12/04/20 09:00 12/28/20 08:17 Divalproex Sodium (Depakote Er) 500 mg QHS PO 12/02/20 21:00 12/05/20 12:29 DC 12/04/20 20:08 Divalproex Sodium (Depakote Er) 1,000 mg QHS PO 12/05/20 21:00 12/27/20 19:47 Quetiapine Fumarate (SEROquel) 12.5 mg DAILY PO 12/17/20 09:00 12/18/20 16:46 DC 12/18/20 08:01 Quetiapine Fumarate (SEROquel) 12.5 mg [id number] PO 12/19/20 09:00 12/23/20 17:23 DC 12/23/20 13:28 Quetiapine Fumarate (SEROquel) 25 mg TID PO 12/23/20 17:30 12/28/20 08:17 Amitriptyline HCl (Elavil) 50 mg QHS PO 12/23/20 21:00 12/27/20 19:47 I have reviewed the current psychotropics carefully including drug interactions. Risk benefit ratio favors no change other than as noted in my dictated progress note. Diagnosis: Problems: (1) Major neurocognitive disorder (2) Impulse control disorder, unspecified (3) Anxiety disorder, unspecified (4) Dementia, vascular, with depression (5) Dementia, vascular, with delusions (6) Dementia in Alzheimer's disease with depression (7) Dementia in Alzheimer's disease with delusions (8) Dementia of the Alzheimer's type with early onset with behavioral disturbance DONA BOTELLO MD Dec 28, 2020 09:15
[2020-12-28 16:07] VITALS: BP 95/65
[2020-12-28] MEDS: AMITRIPTYLINE HCL 50 MG TABLET PO SCH (20:15)
[2020-12-28] MEDS: DIVALPROEX ER 500 MG TAB.ER.24H PO SCH (20:15)
[2020-12-28] MEDS: ATORVASTATIN CALCIUM 20 MG TABLET PO SCH (20:15)
[2020-12-28] MEDS: MELATONIN 3 MG TABLET PO SCH (20:16)
--- NOTE | 2020-12-28 21:00 | PDOC ---
Exam Note: Gus Note: Please also refer to the separate dictated note~for this date of service dictated separately.~Patient seen individually. Discussed the patient with Nursing staff reviewed the chart.~Reviewed interim history and current functioning. Reviewed vital signs,~Labs/ Radiology~and current medications noted below. Continue current treatment with the changes noted in the dictated addendum note Assessment: Vital Signs/I&O: Vital Signs Date Time Temp Pulse Resp B/P (MAP) Pulse Ox O2 Delivery O2 Flow Rate FiO2 12/28/20 17:00 91 95/65 12/28/20 16:07 97.1 20 97 12/28/20 06:23 Room Air I & O 12/27/20 12/27/20 12/28/20 15:00 23:00 07:00 Intake Total 560 ml 480 ml Balance 560 ml 480 ml Current Medications: Meds: Current Medications Medications (Trade) Dose Ordered Sig/Evaristo Route PRN Reason Start Time Stop Time Status Last Admin Dose Admin Acetaminophen (Tylenol) 650 mg PRN Q6HRS PRN PO MILD PAIN / TEMP > 100.3'F 11/25/20 18:00 12/26/20 06:17 Multi-Ingredient Ointment (Analgesic Flanagan) 1 addison PRN QID PRN TP MUSCLE PAIN 11/25/20 18:00 Al Hydroxide/Mg Hydroxide (Mylanta Plus Xs) 15 ml PRN AFTMEALHC PRN PO DYSPEPSIA 11/25/20 18:00 12/10/20 18:52 Magnesium Hydroxide (Milk Of Magnesia) 2,400 mg PRN QHS PRN PO CONSTIPATION 11/25/20 18:00 12/13/20 08:36 Amlodipine Besylate (Norvasc) 10 mg DAILY PO 11/26/20 09:00 12/28/20 08:16 Aspirin (Aspirin Chewable) 81 mg DAILY PO 11/26/20 09:00 12/28/20 08:17 Carvedilol (Coreg) 6.25 mg BIDWMEALS PO 11/25/20 18:30 12/28/20 08:17 Lisinopril (Prinivil) 10 mg DAILY PO 11/26/20 09:00 11/26/20 16:16 DC Quetiapine Fumarate (SEROquel) 25 mg QHS PO 11/25/20 21:00 12/23/20 17:23 DC 12/22/20 20:04 Tamsulosin HCl (Flomax) 0.4 mg DAILY PO 11/26/20 09:00 12/28/20 08:17 Amoxicillin (Amoxil) 500 mg [id number] PO 11/25/20 21:00 12/02/20 14:01 DC 12/02/20 14:15 Atorvastatin Calcium (Lipitor) 40 mg QHS PO 11/25/20 21:00 12/28/20 20:15 Folic Acid (Folic Acid) 1 mg DAILY PO 11/26/20 09:00 12/28/20 08:17 Lidocaine (Lidoderm) 1 patch DAILY TD 11/26/20 09:00 12/28/20 08:19 Multivitamins/ Calcium (Thera-M Plus) 1 tab DAILY PO 11/26/20 09:00 12/28/20 08:17 Thiamine HCl (Vitamin B-1) 100 mg BID PO 11/25/20 21:00 12/28/20 20:16 Olanzapine (ZyPREXA ZYDIS) 2.5 mg PRN Q2HR PRN PO PSYCHOSIS 11/25/20 21:15 12/27/20 04:19 Trazodone HCl (Desyrel) 50 mg PRN QHS PRN PO INSOMNIA, MAY REPEAT IN 1HR 11/25/20 21:15 12/28/20 20:15 Mirtazapine (Remeron) 7.5 mg QHS PO 11/26/20 21:00 11/28/20 12:23 DC 11/27/20 20:00 Lactobacillus Rhamnosus (Culturelle) 1 cap BID PO 11/27/20 09:00 12/28/20 20:15 Sertraline HCl (Zoloft) 25 mg DAILY PO 11/28/20 09:00 11/30/20 09:01 DC 11/30/20 08:39 Sertraline HCl (Zoloft) 50 mg DAILY PO 12/01/20 09:00 12/03/20 11:00 DC 12/03/20 08:05 Mirtazapine (Remeron) 15 mg QHS PO 11/28/20 21:00 11/29/20 18:47 DC 11/28/20 19:38 Hydroxyzine HCl (Atarax) 25 mg PRN Q2HR PRN PO ABDOMINAL CRAMPS 11/28/20 21:45 12/27/20 04:18 Lorazepam (Ativan) 0.5 mg PRN Q4HRS PRN PO ANXIETY / AGITATION 11/28/20 21:45 11/29/20 21:45 DC Amitriptyline HCl (Elavil) 25 mg QHS PO 11/29/20 21:00 12/23/20 17:23 DC 12/22/20 20:04 Melatonin (Melatonin) 3 mg QHS PO 11/29/20 21:00 12/28/20 20:16 Sertraline HCl (Zoloft) 75 mg DAILY PO 12/04/20 09:00 12/28/20 08:17 Divalproex Sodium (Depakote Er) 500 mg QHS PO 12/02/20 21:00 12/05/20 12:29 DC 12/04/20 20:08 Divalproex Sodium (Depakote Er) 1,000 mg QHS PO 12/05/20 21:00 12/28/20 20:15 Quetiapine Fumarate (SEROquel) 12.5 mg DAILY PO 12/17/20 09:00 12/18/20 16:46 DC 12/18/20 08:01 Quetiapine Fumarate (SEROquel) 12.5 mg [id number] PO 12/19/20 09:00 12/23/20 17:23 DC 12/23/20 13:28 Quetiapine Fumarate (SEROquel) 25 mg TID PO 12/23/20 17:30 12/28/20 20:15 Amitriptyline HCl (Elavil) 50 mg QHS PO 12/23/20 21:00 12/28/20 20:15 I have reviewed the current psychotropics carefully including drug interactions. Risk benefit ratio favors no change other than as noted in my dictated progress note. Diagnosis: Problems: (1) Major neurocognitive disorder (2) Impulse control disorder, unspecified (3) Anxiety disorder, unspecified (4) Dementia, vascular, with depression (5) Dementia, vascular, with delusions (6) Dementia in Alzheimer's disease with depression (7) Dementia in Alzheimer's disease with delusions (8) Dementia of the Alzheimer's type with early onset with behavioral disturbance DONA BOTELLO MD Dec 28, 2020 21:00
[2020-12-28] MEDS: hydrOXYzine HCL 25 MG TABLET PO PRN (21:34)
--- NOTE | 2020-12-28 22:46 | PN ---
DATE: 12/28/2020 PSYCHIATRIC PROGRESS NOTE This note covers elements not covered in my initial note 12/28/2020. SUBJECTIVE: I met with the patient in the evening. Per PREET Montesinos., the patient slept 5 hours previous night. He has been somewhat exit seeking at times, but redirectable. REVIEW OF SYSTEMS: No CV, , pulmonary, eye, ENT system symptoms on review. Reliability poor. MENTAL STATUS EXAM: Oriented to himself. Insight, judgment, recent and remote memory, attention, concentration, fund of knowledge poor, consistent with his diagnosis mentioned in my initial note. PLAN: No change from initial note. MAN Leena BOTELLO MD DR: CHRISTINA/roxy JOB#: [id number] / [id number]
[2020-12-29] MEDS: hydrOXYzine HCL 25 MG TABLET PO PRN (00:54)
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
[2020-12-29 06:00] VITALS: BP 119/69
[2020-12-29] MEDS: FOLIC ACID 1 MG TABLET PO SCH (08:02)
[2020-12-29] MEDS: QUEtiapine 25 MG TABLET. PO SCH ×3 (08:02→19:50)
[2020-12-29] MEDS: THIAMINE 100 MG TABLET. PO SCH ×2 (08:02→19:50)
[2020-12-29] MEDS: SERTRALINE 25 MG TABLET. PO SCH (08:02)
[2020-12-29] MEDS: CARVEDILOL 6.25 MG TABLET PO SCH ×2 (08:02→17:00)
[2020-12-29] MEDS: LACTOBACILLUS RHAMNOSUS GG 1 CAPSULE. PO SCH ×2 (08:02→19:49)
[2020-12-29] MEDS: TAMSULOSIN 0.4 MG CAP.ER.24H. PO SCH (08:03)
[2020-12-29] MEDS: MULTIVITAMIN with MINERAL TABLET. PO SCH (08:03)
[2020-12-29] MEDS: amLODIPine BESYLATE 10 MG TABLET PO SCH (08:03)
[2020-12-29] MEDS: ASPIRIN CHEWABLE 81 MG TABLET. PO SCH (08:03)
[2020-12-29] MEDS: LIDOCAINE (700MG/PATCH) PATCH. TD SCH (08:09)
[2020-12-29 15:59] VITALS: BP 154/89
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
[2020-12-29] MEDS: AMITRIPTYLINE HCL 50 MG TABLET PO SCH (19:49)
[2020-12-29] MEDS: traZODone 50 MG TABLET. PO PRN ×2 (19:49→21:44)
[2020-12-29] MEDS: DIVALPROEX ER 500 MG TAB.ER.24H PO SCH (19:49)
[2020-12-29] MEDS: MELATONIN 3 MG TABLET PO SCH (19:49)
[2020-12-29] MEDS: ATORVASTATIN CALCIUM 20 MG TABLET PO SCH (19:50)
--- NOTE | 2020-12-29 21:07 | PDOC ---
Exam Note: Gus Note: Please also refer to the separate dictated note~for this date of service dictated separately.~Patient seen individually. Discussed the patient with Nursing staff reviewed the chart.~Reviewed interim history and current functioning. Reviewed vital signs,~Labs/ Radiology~and current medications noted below. Continue current treatment with the changes noted in the dictated addendum note Assessment: Vital Signs/I&O: Vital Signs Date Time Temp Pulse Resp B/P (MAP) Pulse Ox O2 Delivery O2 Flow Rate FiO2 12/29/20 17:00 81 154/89 12/29/20 15:59 96.7 18 98 12/28/20 06:23 Room Air I & O 12/28/20 12/28/20 12/29/20 15:00 23:00 07:00 Intake Total 240 ml 480 ml Balance 240 ml 480 ml Current Medications: Meds: Current Medications Medications (Trade) Dose Ordered Sig/Evaristo Route PRN Reason Start Time Stop Time Status Last Admin Dose Admin Acetaminophen (Tylenol) 650 mg PRN Q6HRS PRN PO MILD PAIN / TEMP > 100.3'F 11/25/20 18:00 12/26/20 06:17 Multi-Ingredient Ointment (Analgesic [place]) 1 addison PRN QID PRN TP MUSCLE PAIN 11/25/20 18:00 Al Hydroxide/Mg Hydroxide (Mylanta Plus Xs) 15 ml PRN AFTMEALHC PRN PO DYSPEPSIA 11/25/20 18:00 12/10/20 18:52 Magnesium Hydroxide (Milk Of Magnesia) 2,400 mg PRN QHS PRN PO CONSTIPATION 11/25/20 18:00 12/13/20 08:36 Amlodipine Besylate (Norvasc) 10 mg DAILY PO 11/26/20 09:00 12/29/20 08:03 Aspirin (Aspirin Chewable) 81 mg DAILY PO 11/26/20 09:00 12/29/20 08:03 Carvedilol (Coreg) 6.25 mg BIDWMEALS PO 11/25/20 18:30 12/29/20 17:00 Lisinopril (Prinivil) 10 mg DAILY PO 11/26/20 09:00 11/26/20 16:16 DC Quetiapine Fumarate (SEROquel) 25 mg QHS PO 11/25/20 21:00 12/23/20 17:23 DC 12/22/20 20:04 Tamsulosin HCl (Flomax) 0.4 mg DAILY PO 11/26/20 09:00 12/29/20 08:03 Amoxicillin (Amoxil) 500 mg [id number] PO 11/25/20 21:00 12/02/20 14:01 DC 12/02/20 14:15 Atorvastatin Calcium (Lipitor) 40 mg QHS PO 11/25/20 21:00 12/29/20 19:50 Folic Acid (Folic Acid) 1 mg DAILY PO 11/26/20 09:00 12/29/20 08:02 Lidocaine (Lidoderm) 1 patch DAILY TD 11/26/20 09:00 12/28/20 08:19 Multivitamins/ Calcium (Thera-M Plus) 1 tab DAILY PO 11/26/20 09:00 12/29/20 08:03 Thiamine HCl (Vitamin B-1) 100 mg BID PO 11/25/20 21:00 12/29/20 19:50 Olanzapine (ZyPREXA ZYDIS) 2.5 mg PRN Q2HR PRN PO PSYCHOSIS 11/25/20 21:15 12/29/20 00:55 Trazodone HCl (Desyrel) 50 mg PRN QHS PRN PO INSOMNIA, MAY REPEAT IN 1HR 11/25/20 21:15 12/29/20 19:49 Mirtazapine (Remeron) 7.5 mg QHS PO 11/26/20 21:00 11/28/20 12:23 DC 11/27/20 20:00 Lactobacillus Rhamnosus (Culturelle) 1 cap BID PO 11/27/20 09:00 12/29/20 19:49 Sertraline HCl (Zoloft) 25 mg DAILY PO 11/28/20 09:00 11/30/20 09:01 DC 11/30/20 08:39 Sertraline HCl (Zoloft) 50 mg DAILY PO 12/01/20 09:00 12/03/20 11:00 DC 12/03/20 08:05 Mirtazapine (Remeron) 15 mg QHS PO 11/28/20 21:00 11/29/20 18:47 DC 11/28/20 19:38 Hydroxyzine HCl (Atarax) 25 mg PRN Q2HR PRN PO ABDOMINAL CRAMPS 11/28/20 21:45 12/29/20 00:54 Lorazepam (Ativan) 0.5 mg PRN Q4HRS PRN PO ANXIETY / AGITATION 11/28/20 21:45 11/29/20 21:45 DC Amitriptyline HCl (Elavil) 25 mg QHS PO 11/29/20 21:00 12/23/20 17:23 DC 12/22/20 20:04 Melatonin (Melatonin) 3 mg QHS PO 11/29/20 21:00 12/29/20 19:49 Sertraline HCl (Zoloft) 75 mg DAILY PO 12/04/20 09:00 12/29/20 08:02 Divalproex Sodium (Depakote Er) 500 mg QHS PO 12/02/20 21:00 12/05/20 12:29 DC 12/04/20 20:08 Divalproex Sodium (Depakote Er) 1,000 mg QHS PO 12/05/20 21:00 12/29/20 19:49 Quetiapine Fumarate (SEROquel) 12.5 mg DAILY PO 12/17/20 09:00 12/18/20 16:46 DC 12/18/20 08:01 Quetiapine Fumarate (SEROquel) 12.5 mg [id number] PO 12/19/20 09:00 12/23/20 17:23 DC 12/23/20 13:28 Quetiapine Fumarate (SEROquel) 25 mg TID PO 12/23/20 17:30 12/29/20 19:50 Amitriptyline HCl (Elavil) 50 mg QHS PO 12/23/20 21:00 12/29/20 19:49 I have reviewed the current psychotropics carefully including drug interactions. Risk benefit ratio favors no change other than as noted in my dictated progress note. Diagnosis: Problems: (1) Major neurocognitive disorder (2) Impulse control disorder, unspecified (3) Anxiety disorder, unspecified (4) Dementia, vascular, with depression (5) Dementia, vascular, with delusions (6) Dementia in Alzheimer's disease with depression (7) Dementia in Alzheimer's disease with delusions (8) Dementia of the Alzheimer's type with early onset with behavioral disturbance DONA BOTELLO MD Dec 29, 2020 21:07
--- NOTE | 2020-12-29 23:57 | NUR ---
Nurses Note: Pt sitting in chair in room during med pass and assessment. Pt compliant with taking medications. Pt ambulating in halls with walking intermittently. Pt provided with yogurt for snack per his request. Pt calls out for nurse occasionally for assistance with getting out of bed and to bathroom. pt now resting comfortably in bed. Addendum: 12/30/20 at 0001 by MOHAMUD TY RN Pt having dilusions that there are women, children, and cats in his room. Pt easily reassured that he would have his own room for the night. Addendum: 12/30/20 at 0012 by MOHAMUD TY RN DISREGARD THIS NOTE WRONG PATIENT
--- NOTE | 2020-12-30 00:12 | NUR ---
Nurses Note: Pt in his room during med pass and assessment. Pt compliant with taking medications and pleasant. Pt ambulating in room independently. Pt now resting comfortably in bed.
[2020-12-30 06:21] VITALS: BP 174/98
[2020-12-30] MEDS: ASPIRIN CHEWABLE 81 MG TABLET. PO SCH (06:28)
[2020-12-30] MEDS: LIDOCAINE (700MG/PATCH) PATCH. TD SCH (06:28)
[2020-12-30] MEDS: CARVEDILOL 6.25 MG TABLET PO SCH ×2 (06:28→16:27)
[2020-12-30] MEDS: amLODIPine BESYLATE 10 MG TABLET PO SCH (06:29)
[2020-12-30] MEDS: LACTOBACILLUS RHAMNOSUS GG 1 CAPSULE. PO SCH ×2 (06:29→19:48)
[2020-12-30] MEDS: SERTRALINE 25 MG TABLET. PO SCH (06:29)
[2020-12-30] MEDS: FOLIC ACID 1 MG TABLET PO SCH (06:29)
[2020-12-30] MEDS: QUEtiapine 25 MG TABLET. PO SCH ×3 (06:29→19:50)
[2020-12-30] MEDS: MULTIVITAMIN with MINERAL TABLET. PO SCH (06:29)
[2020-12-30] MEDS: THIAMINE 100 MG TABLET. PO SCH ×2 (06:29→19:48)
[2020-12-30] MEDS: TAMSULOSIN 0.4 MG CAP.ER.24H. PO SCH (06:29)
[2020-12-30 07:41] LABS: BACTERIA,URINE 0 /HPF (0-FEW); BILIRUBIN,URINE NEG (NEG); CLARITY,URINE CLEAR; COLOR,URINE YELLOW; GLUCOSE,URINE NEG (NEG); NITRITE,URINE NEG (NEG); RBC,URINE OCC /HPF (0-2); SQUAMOUS EPITHELIAL CELL,UR FEW /LPF; UROBILINOGEN,URINE 0.2 mg/dL (0.2 mg/dL); WBC,URINE OCC /HPF (0-4)
[2020-12-30 15:57] VITALS: BP 144/83
[2020-12-30] MEDS ORDERED: FUROSEMIDE 80 MG TABLET PO ONE (16:30)
--- NOTE | 2020-12-30 16:46 | NUR ---
Pt up adl in halls. anxious and exit seeking in afternoon. Zydis given. Has been redirectable. Pt feet noted with 3= edema bilaterally. Pt placed in bed with feet elevated. Harish franklyne applied by staff. Dr Dowling notified. Lasix 80 mg po given x1.
[2020-12-30] MEDS: traZODone 50 MG TABLET. PO PRN (19:49)
[2020-12-30] MEDS: MELATONIN 3 MG TABLET PO SCH (19:49)
[2020-12-30] MEDS: AMITRIPTYLINE HCL 50 MG TABLET PO SCH (19:49)
[2020-12-30] MEDS: ATORVASTATIN CALCIUM 20 MG TABLET PO SCH (19:50)
[2020-12-30] MEDS: DIVALPROEX ER 500 MG TAB.ER.24H PO SCH (19:51)
--- NOTE | 2020-12-30 20:54 | PDOC ---
Exam Note: Gus Note: Please also refer to the separate dictated note~for this date of service dictated separately.~Patient seen individually. Discussed the patient with Nursing staff reviewed the chart.~Reviewed interim history and current functioning. Reviewed vital signs,~Labs/ Radiology~and current medications noted below. Continue current treatment with the changes noted in the dictated addendum note Assessment: Vital Signs/I&O: Vital Signs Date Time Temp Pulse Resp B/P (MAP) Pulse Ox O2 Delivery O2 Flow Rate FiO2 12/30/20 16:27 74 144/83 12/30/20 15:57 97.4 18 98 12/28/20 06:23 Room Air I & O 12/29/20 12/29/20 12/30/20 15:00 23:00 07:00 Intake Total 720 ml 600 ml Balance 720 ml 600 ml Labs: Laboratory Tests Test 12/30/20 05:35 Urine Collection Type Unknown Urine Color Yellow Urine Clarity Clear Urine pH 7.0 Urine Specific [place] 1.020 Urine Protein Neg (NEG-TRACE) Urine Glucose (UA) Neg mg/dL (NEG) Urine Ketones (Stick) Neg mg/dL (NEG) Urine Blood Neg (NEG) Urine Nitrite Neg (NEG) Urine Bilirubin Neg (NEG) Urine Urobilinogen Dipstick 0.2 mg/dL (0.2 mg/dL) Urine Leukocyte Esterase Neg (NEG) Urine RBC Occ /HPF (0-2) Urine WBC Occ /HPF (0-4) Urine Squamous Epithelial Cells Few /LPF Urine Bacteria 0 /HPF (0-FEW) Current Medications: Meds: Laboratory Tests Test 12/30/20 05:35 Urine Collection Type Unknown Urine Color Yellow Urine Clarity Clear Urine pH 7.0 Urine Specific [place] 1.020 Urine Protein Neg Urine Glucose (UA) Neg mg/dL Urine Ketones (Stick) Neg mg/dL Urine Blood Neg Urine Nitrite Neg Urine Bilirubin Neg Urine Urobilinogen Dipstick 0.2 mg/dL Urine Leukocyte Esterase Neg Urine RBC Occ /HPF Urine WBC Occ /HPF Urine Squamous Epithelial Cells Few /LPF Urine Bacteria 0 /HPF Current Medications Medications (Trade) Dose Ordered Sig/Evaristo Route PRN Reason Start Time Stop Time Status Last Admin Dose Admin Acetaminophen (Tylenol) 650 mg PRN Q6HRS PRN PO MILD PAIN / TEMP > 100.3'F 11/25/20 18:00 12/26/20 06:17 Multi-Ingredient Ointment (Analgesic Dalton) 1 addison PRN QID PRN TP MUSCLE PAIN 11/25/20 18:00 Al Hydroxide/Mg Hydroxide (Mylanta Plus Xs) 15 ml PRN AFTMEALHC PRN PO DYSPEPSIA 11/25/20 18:00 12/10/20 18:52 Magnesium Hydroxide (Milk Of Magnesia) 2,400 mg PRN QHS PRN PO CONSTIPATION 11/25/20 18:00 12/13/20 08:36 Amlodipine Besylate (Norvasc) 10 mg DAILY PO 11/26/20 09:00 12/30/20 06:29 Aspirin (Aspirin Chewable) 81 mg DAILY PO 11/26/20 09:00 12/30/20 06:28 Carvedilol (Coreg) 6.25 mg BIDWMEALS PO 11/25/20 18:30 12/30/20 16:27 Lisinopril (Prinivil) 10 mg DAILY PO 11/26/20 09:00 11/26/20 16:16 DC Quetiapine Fumarate (SEROquel) 25 mg QHS PO 11/25/20 21:00 12/23/20 17:23 DC 12/22/20 20:04 Tamsulosin HCl (Flomax) 0.4 mg DAILY PO 11/26/20 09:00 12/30/20 06:29 Amoxicillin (Amoxil) 500 mg [id number] PO 11/25/20 21:00 12/02/20 14:01 DC 12/02/20 14:15 Atorvastatin Calcium (Lipitor) 40 mg QHS PO 11/25/20 21:00 12/30/20 19:50 Folic Acid (Folic Acid) 1 mg DAILY PO 11/26/20 09:00 12/30/20 06:29 Lidocaine (Lidoderm) 1 patch DAILY TD 11/26/20 09:00 12/30/20 06:28 Multivitamins/ Calcium (Thera-M Plus) 1 tab DAILY PO 11/26/20 09:00 12/30/20 06:29 Thiamine HCl (Vitamin B-1) 100 mg BID PO 11/25/20 21:00 12/30/20 19:48 Olanzapine (ZyPREXA ZYDIS) 2.5 mg PRN Q2HR PRN PO PSYCHOSIS 11/25/20 21:15 2/5/21 13:19 Trazodone HCl (Desyrel) 50 mg PRN QHS PRN PO INSOMNIA, MAY REPEAT IN 1HR 11/25/20 21:15 12/30/20 19:49 Mirtazapine (Remeron) 7.5 mg QHS PO 11/26/20 21:00 11/28/20 12:23 DC 11/27/20 20:00 Lactobacillus Rhamnosus (Culturelle) 1 cap BID PO 11/27/20 09:00 12/30/20 19:48 Sertraline HCl (Zoloft) 25 mg DAILY PO 11/28/20 09:00 11/30/20 09:01 DC 11/30/20 08:39 Sertraline HCl (Zoloft) 50 mg DAILY PO 12/01/20 09:00 12/03/20 11:00 DC 12/03/20 08:05 Mirtazapine (Remeron) 15 mg QHS PO 11/28/20 21:00 11/29/20 18:47 DC 11/28/20 19:38 Hydroxyzine HCl (Atarax) 25 mg PRN Q2HR PRN PO ABDOMINAL CRAMPS 11/28/20 21:45 12/29/20 00:54 Lorazepam (Ativan) 0.5 mg PRN Q4HRS PRN PO ANXIETY / AGITATION 11/28/20 21:45 11/29/20 21:45 DC Amitriptyline HCl (Elavil) 25 mg QHS PO 11/29/20 21:00 12/23/20 17:23 DC 12/22/20 20:04 Melatonin (Melatonin) 3 mg QHS PO 11/29/20 21:00 12/30/20 19:49 Sertraline HCl (Zoloft) 75 mg DAILY PO 12/04/20 09:00 12/30/20 06:29 Divalproex Sodium (Depakote Er) 500 mg QHS PO 12/02/20 21:00 12/05/20 12:29 DC 12/04/20 20:08 Divalproex Sodium (Depakote Er) 1,000 mg QHS PO 12/05/20 21:00 12/30/20 19:51 Quetiapine Fumarate (SEROquel) 12.5 mg DAILY PO 12/17/20 09:00 12/18/20 16:46 DC 12/18/20 08:01 Quetiapine Fumarate (SEROquel) 12.5 mg [id number] PO 12/19/20 09:00 12/23/20 17:23 DC 12/23/20 13:28 Quetiapine Fumarate (SEROquel) 25 mg TID PO 12/23/20 17:30 12/30/20 19:50 Amitriptyline HCl (Elavil) 50 mg QHS PO 12/23/20 21:00 12/30/20 19:49 Furosemide (Lasix) 80 mg 1X ONCE PO 12/30/20 16:30 12/30/20 16:31 DC 12/30/20 16:27 Current Medications Medications (Trade) Dose Ordered Sig/Evaristo Route PRN Reason Start Time Stop Time Status Last Admin Dose Admin Furosemide (Lasix) 80 mg 1X ONCE PO 12/30/20 16:30 12/30/20 16:31 DC 12/30/20 16:27 I have reviewed the current psychotropics carefully including drug interactions. Risk benefit ratio favors no change other than as noted in my dictated progress note. 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
--- NOTE | 2020-12-30 22:47 | NUR ---
Patient is wandering around the unit on assumption of care. He is in pleasant spirits. Disorganized, confused. Compliant with assessments, medications whole, HS cares and shower. 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 No agitation. Patient denies any pain or discomfort so far this shift. He appears to be sleeping comfortably at present time. Will continue to monitor.
[2020-12-31] MEDS: LIDOCAINE (700MG/PATCH) PATCH. TD SCH (06:07)
[2020-12-31] MEDS: ASPIRIN CHEWABLE 81 MG TABLET. PO SCH (06:07)
[2020-12-31] MEDS: amLODIPine BESYLATE 10 MG TABLET PO SCH (06:09)
[2020-12-31] MEDS: MULTIVITAMIN with MINERAL TABLET. PO SCH (06:11)
[2020-12-31] MEDS: SERTRALINE 25 MG TABLET. PO SCH (06:11)
[2020-12-31] MEDS: TAMSULOSIN 0.4 MG CAP.ER.24H. PO SCH (06:12)
[2020-12-31] MEDS: FOLIC ACID 1 MG TABLET PO SCH (06:12)
[2020-12-31] MEDS: QUEtiapine 25 MG TABLET. PO SCH ×3 (06:13→20:25)
[2020-12-31] MEDS: THIAMINE 100 MG TABLET. PO SCH ×2 (06:13→20:24)
[2020-12-31] MEDS: CARVEDILOL 6.25 MG TABLET PO SCH ×2 (06:14→17:11)
[2020-12-31] MEDS: LACTOBACILLUS RHAMNOSUS GG 1 CAPSULE. PO SCH ×2 (06:14→20:22)
[2020-12-31 06:26] VITALS: BP 134/81
--- NOTE | 2020-12-31 07:16 | PDOC ---
Exam Note: Gus Note: This note is a late entry for 12/29/2020 covers elements not covered in my initial note. Subjective: The patient was seen face to face in the evening of 12/29/2020 with Addis OVIEDO, reviewed the chart. The patient slept 3-1/2 hours previous night. The patient was somewhat combative previous evening but remains confused, not aggressive during the day today. We will check UA to rule out UTI. Review of Systems: No CV, , pulmonary, eye, ENT system symptoms on review. Reliability poor. Mental Status Exam: The patient is oriented to himself. Insight and judgment, recent and remote memory, attention and concentration, fund of knowledge is poor consistent with his diagnosis. No suicidal or homicidal ideation. Laboratory Data: Reviewed. Impression: Major neurocognitive disorder Alzheimer vascular with delusion, depression, behavioral disturbance. Anxiety disorder unspecified. Impulse control disorder unspecified. Plan: No change from initial note. Check UA, rule out UTI, worsening confusion, anxiety. Assessment: Vital Signs/I&O: Vital Signs Date Time Temp Pulse Resp B/P (MAP) Pulse Ox O2 Delivery O2 Flow Rate FiO2 12/31/20 06:26 96.7 86 20 134/81 (98) 98 12/28/20 06:23 Room Air I & O 12/30/20 12/30/20 12/31/20 14:59 22:59 06:59 Intake Total 600 ml 360 ml Balance 600 ml 360 ml Current Medications: Meds: Current Medications Medications (Trade) Dose Ordered Sig/Evaristo Route PRN Reason Start Time Stop Time Status Last Admin Dose Admin Acetaminophen (Tylenol) 650 mg PRN Q6HRS PRN PO MILD PAIN / TEMP > 100.3'F 11/25/20 18:00 12/26/20 06:17 Multi-Ingredient Ointment (Analgesic [place]) 1 addison PRN QID PRN TP MUSCLE PAIN 11/25/20 18:00 Al Hydroxide/Mg Hydroxide (Mylanta Plus Xs) 15 ml PRN AFTMEALHC PRN PO DYSPEPSIA 11/25/20 18:00 12/10/20 18:52 Magnesium Hydroxide (Milk Of Magnesia) 2,400 mg PRN QHS PRN PO CONSTIPATION 11/25/20 18:00 12/13/20 08:36 Amlodipine Besylate (Norvasc) 10 mg DAILY PO 1/2/21 09:00 12/31/20 06:09 Aspirin (Aspirin Chewable) 81 mg DAILY PO 11/26/20 09:00 12/31/20 06:07 Carvedilol (Coreg) 6.25 mg BIDWMEALS PO 11/25/20 18:30 12/31/20 06:14 Lisinopril (Prinivil) 10 mg DAILY PO 11/26/20 09:00 11/26/20 16:16 DC Quetiapine Fumarate (SEROquel) 25 mg QHS PO 11/25/20 21:00 12/23/20 17:23 DC 12/22/20 20:04 Tamsulosin HCl (Flomax) 0.4 mg DAILY PO 11/26/20 09:00 12/31/20 06:12 Amoxicillin (Amoxil) 500 mg [id number] PO 11/25/20 21:00 12/02/20 14:01 DC 12/02/20 14:15 Atorvastatin Calcium (Lipitor) 40 mg QHS PO 11/25/20 21:00 12/30/20 19:50 Folic Acid (Folic Acid) 1 mg DAILY PO 11/26/20 09:00 12/31/20 06:12 Lidocaine (Lidoderm) 1 patch DAILY TD 11/26/20 09:00 12/31/20 06:07 Multivitamins/ Calcium (Thera-M Plus) 1 tab DAILY PO 11/26/20 09:00 12/31/20 06:11 Thiamine HCl (Vitamin B-1) 100 mg BID PO 11/25/20 21:00 12/31/20 06:13 Olanzapine (ZyPREXA ZYDIS) 2.5 mg PRN Q2HR PRN PO PSYCHOSIS 11/25/20 21:15 12/30/20 13:19 Trazodone HCl (Desyrel) 50 mg PRN QHS PRN PO INSOMNIA, MAY REPEAT IN 1HR 11/25/20 21:15 12/30/20 19:49 Mirtazapine (Remeron) 7.5 mg QHS PO 11/26/20 21:00 11/28/20 12:23 DC 11/27/20 20:00 Lactobacillus Rhamnosus (Culturelle) 1 cap BID PO 11/27/20 09:00 12/31/20 06:14 Sertraline HCl (Zoloft) 25 mg DAILY PO 11/28/20 09:00 11/30/20 09:01 DC 11/30/20 08:39 Sertraline HCl (Zoloft) 50 mg DAILY PO 12/01/20 09:00 12/03/20 11:00 DC 12/03/20 08:05 Mirtazapine (Remeron) 15 mg QHS PO 11/28/20 21:00 11/29/20 18:47 DC 11/28/20 19:38 Hydroxyzine HCl (Atarax) 25 mg PRN Q2HR PRN PO ABDOMINAL CRAMPS 11/28/20 21:45 12/29/20 00:54 Lorazepam (Ativan) 0.5 mg PRN Q4HRS PRN PO ANXIETY / AGITATION 11/28/20 21:45 11/29/20 21:45 DC Amitriptyline HCl (Elavil) 25 mg QHS PO 11/29/20 21:00 12/23/20 17:23 DC 12/22/20 20:04 Melatonin (Melatonin) 3 mg QHS PO 11/29/20 21:00 12/30/20 19:49 Sertraline HCl (Zoloft) 75 mg DAILY PO 12/04/20 09:00 12/31/20 06:11 Divalproex Sodium (Depakote Er) 500 mg QHS PO 12/02/20 21:00 12/05/20 12:29 DC 12/04/20 20:08 Divalproex Sodium (Depakote Er) 1,000 mg QHS PO 12/05/20 21:00 12/30/20 19:51 Quetiapine Fumarate (SEROquel) 12.5 mg DAILY PO 12/17/20 09:00 12/18/20 16:46 DC 12/18/20 08:01 Quetiapine Fumarate (SEROquel) 12.5 mg [id number] PO 12/19/20 09:00 12/23/20 17:23 DC 12/23/20 13:28 Quetiapine Fumarate (SEROquel) 25 mg TID PO 12/23/20 17:30 12/31/20 06:13 Amitriptyline HCl (Elavil) 50 mg QHS PO 12/23/20 21:00 12/30/20 19:49 Furosemide (Lasix) 80 mg 1X ONCE PO 12/30/20 16:30 12/30/20 16:31 DC 12/30/20 16:27 Current Medications Medications (Trade) Dose Ordered Sig/Evaristo Route PRN Reason Start Time Stop Time Status Last Admin Dose Admin Furosemide (Lasix) 80 mg 1X ONCE PO 12/30/20 16:30 12/30/20 16:31 DC 12/30/20 16:27 I have reviewed the current psychotropics carefully including drug interactions. Risk benefit ratio favors no change other than as noted in my dictated progress note. Diagnosis: Problems: (1) Major neurocognitive disorder (2) Impulse control disorder, unspecified (3) Anxiety disorder, unspecified (4) Dementia, vascular, with depression (5) Dementia, vascular, with delusions (6) Dementia in Alzheimer's disease with depression (7) Dementia in Alzheimer's disease with delusions (8) Dementia of the Alzheimer's type with early onset with behavioral disturbance DONA BOTELLO MD Dec 31, 2020 07:16
--- NOTE | 2020-12-31 07:41 | PDOC ---
Exam Note: Gus Note: This note is a late entry for 12/30/2020 covers elements not covered in my initial note. Subjective: The patient was seen face to face in the evening of 12/30/2020 with Charmaine OVIEDO, reviewed the chart. The patient slept 8 hours previous night. Overall the patient remains confused, has done better, less anxious, less exit seeking. He believes he has to go to work to check things out. He does have some ankle edema. I will start him on JO[employer] hose and he will receive Lasix x1 per Dr. Dowling. Review of Systems: No CV, , pulmonary, eye, ENT system symptoms on review. Mental Status Exam: The patient is oriented to himself. Insight and judgment, recent and remote memory, attention and concentration, fund of knowledge is poor consistent with his diagnosis. No suicidal or homicidal ideation. Laboratory Data: Reviewed. Impression: Major neurocognitive disorder Alzheimer vascular with delusion, depression, behavioral disturbance. Anxiety disorder unspecified. Impulse control disorder unspecified. Plan: No change from initial note. Assessment: Vital Signs/I&O: Vital Signs Date Time Temp Pulse Resp B/P (MAP) Pulse Ox O2 Delivery O2 Flow Rate FiO2 12/31/20 06:26 96.7 86 20 134/81 (98) 98 12/28/20 06:23 Room Air I & O 12/30/20 12/30/20 12/31/20 14:59 22:59 06:59 Intake Total 600 ml 360 ml Balance 600 ml 360 ml Current Medications: Meds: Current Medications Medications (Trade) Dose Ordered Sig/Evaristo Route PRN Reason Start Time Stop Time Status Last Admin Dose Admin Acetaminophen (Tylenol) 650 mg PRN Q6HRS PRN PO MILD PAIN / TEMP > 100.3'F 11/25/20 18:00 12/26/20 06:17 Multi-Ingredient Ointment (Analgesic [place]) 1 addison PRN QID PRN TP MUSCLE PAIN 11/25/20 18:00 Al Hydroxide/Mg Hydroxide (Mylanta Plus Xs) 15 ml PRN AFTMEALHC PRN PO DYSPEPSIA 11/25/20 18:00 12/10/20 18:52 Magnesium Hydroxide (Milk Of Magnesia) 2,400 mg PRN QHS PRN PO CONSTIPATION 11/25/20 18:00 12/13/20 08:36 Amlodipine Besylate (Norvasc) 10 mg DAILY PO 11/26/20 09:00 12/31/20 06:09 Aspirin (Aspirin Chewable) 81 mg DAILY PO 11/26/20 09:00 12/31/20 06:07 Carvedilol (Coreg) 6.25 mg BIDWMEALS PO 11/25/20 18:30 12/31/20 06:14 Lisinopril (Prinivil) 10 mg DAILY PO 11/26/20 09:00 11/26/20 16:16 DC Quetiapine Fumarate (SEROquel) 25 mg QHS PO 11/25/20 21:00 12/23/20 17:23 DC 12/22/20 20:04 Tamsulosin HCl (Flomax) 0.4 mg DAILY PO 11/26/20 09:00 12/31/20 06:12 Amoxicillin (Amoxil) 500 mg [id number] PO 11/25/20 21:00 12/02/20 14:01 DC 12/02/20 14:15 Atorvastatin Calcium (Lipitor) 40 mg QHS PO 11/25/20 21:00 12/30/20 19:50 Folic Acid (Folic Acid) 1 mg DAILY PO 11/26/20 09:00 12/31/20 06:12 Lidocaine (Lidoderm) 1 patch DAILY TD 11/26/20 09:00 12/31/20 06:07 Multivitamins/ Calcium (Thera-M Plus) 1 tab DAILY PO 11/26/20 09:00 12/31/20 06:11 Thiamine HCl (Vitamin B-1) 100 mg BID PO 11/25/20 21:00 12/31/20 06:13 Olanzapine (ZyPREXA ZYDIS) 2.5 mg PRN Q2HR PRN PO PSYCHOSIS 11/25/20 21:15 12/30/20 13:19 Trazodone HCl (Desyrel) 50 mg PRN QHS PRN PO INSOMNIA, MAY REPEAT IN 1HR 11/25/20 21:15 12/30/20 19:49 Mirtazapine (Remeron) 7.5 mg QHS PO 11/26/20 21:00 11/28/20 12:23 DC 11/27/20 20:00 Lactobacillus Rhamnosus (Culturelle) 1 cap BID PO 11/27/20 09:00 12/31/20 06:14 Sertraline HCl (Zoloft) 25 mg DAILY PO 11/28/20 09:00 11/30/20 09:01 DC 11/30/20 08:39 Sertraline HCl (Zoloft) 50 mg DAILY PO 12/01/20 09:00 12/03/20 11:00 DC 12/03/20 08:05 Mirtazapine (Remeron) 15 mg QHS PO 11/28/20 21:00 11/29/20 18:47 DC 11/28/20 19:38 Hydroxyzine HCl (Atarax) 25 mg PRN Q2HR PRN PO ABDOMINAL CRAMPS 11/28/20 21:45 12/29/20 00:54 Lorazepam (Ativan) 0.5 mg PRN Q4HRS PRN PO ANXIETY / AGITATION 11/28/20 21:45 11/29/20 21:45 DC Amitriptyline HCl (Elavil) 25 mg QHS PO 11/29/20 21:00 12/23/20 17:23 DC 12/22/20 20:04 Melatonin (Melatonin) 3 mg QHS PO 11/29/20 21:00 12/30/20 19:49 Sertraline HCl (Zoloft) 75 mg DAILY PO 12/04/20 09:00 12/31/20 06:11 Divalproex Sodium (Depakote Er) 500 mg QHS PO 12/02/20 21:00 12/05/20 12:29 DC 12/04/20 20:08 Divalproex Sodium (Depakote Er) 1,000 mg QHS PO 12/05/20 21:00 12/30/20 19:51 Quetiapine Fumarate (SEROquel) 12.5 mg DAILY PO 12/17/20 09:00 12/18/20 16:46 DC 12/18/20 08:01 Quetiapine Fumarate (SEROquel) 12.5 mg [id number] PO 12/19/20 09:00 12/23/20 17:23 DC 12/23/20 13:28 Quetiapine Fumarate (SEROquel) 25 mg TID PO 12/23/20 17:30 12/31/20 06:13 Amitriptyline HCl (Elavil) 50 mg QHS PO 12/23/20 21:00 12/30/20 19:49 Furosemide (Lasix) 80 mg 1X ONCE PO 12/30/20 16:30 12/30/20 16:31 DC 12/30/20 16:27 Current Medications Medications (Trade) Dose Ordered Sig/Evaristo Route PRN Reason Start Time Stop Time Status Last Admin Dose Admin Furosemide (Lasix) 80 mg 1X ONCE PO 12/30/20 16:30 12/30/20 16:31 DC 12/30/20 16:27 I have reviewed the current psychotropics carefully including drug interactions. Risk benefit ratio favors no change other than as noted in my dictated progress note. Diagnosis: Problems: (1) Major neurocognitive disorder (2) Impulse control disorder, unspecified (3) Anxiety disorder, unspecified (4) Dementia, vascular, with depression (5) Dementia, vascular, with delusions (6) Dementia in Alzheimer's disease with depression (7) Dementia in Alzheimer's disease with delusions (8) Dementia of the Alzheimer's type with early onset with behavioral disturbance DONA BOTELLO MD Dec 31, 2020 07:41
[2020-12-31 11:00] LABS: BASO % 0 % (0-3); EOS # 0.1 x10^3/uL (0.0-0.7); EOS % 2 % (0-3); HEMATOCRIT 43.2 % (39.0-53.0); HEMOGLOBIN 14.4 g/dL (13.0-17.5); LYMPH # 1.7 x10^3/uL (1.0-4.8); LYMPH % 27 % (24-48); MEAN CORPUSCULAR HEMOGLOBIN 30 pg (25-35); MEAN CORPUSCULAR HGB CONC 33 g/dL (31-37); MEAN CORPUSCULAR VOLUME 90 fL (79-100); MONO # 0.7 x10^3/uL (0.0-1.1); MONO % 11 % (0-9); NEUT # 3.6 x10^3uL (1.8-7.7); NEUT % 59 % (31-73); PLATELET COUNT 246 x10^3/uL (140-400); RED BLOOD COUNT 4.79 x10^6/uL (4.30-5.70); RED CELL DISTRIBUTION WIDTH 14.2 % (11.5-14.5); WHITE BLOOD COUNT 6.1 x10^3/uL (4.0-11.0)
[2020-12-31 11:16] LABS: ALBUMIN 3.3 g/dL (3.4-5.0); ALBUMIN/GLOBULIN RATIO 0.9 (1.0-1.7); CALCIUM 8.9 mg/dL (8.5-10.1); GFR 71.5; POTASSIUM 3.8 mmol/L (3.5-5.1); TOTAL BILIRUBIN 0.4 mg/dL (0.2-1.0); TOTAL PROTEIN 7.1 g/dL (6.4-8.2)
--- NOTE | 2020-12-31 15:45 | NUR ---
Pt up adl in halls. Wandering others rooms but is easily redirectable. Zydis given in afternoon to help with restlessness.
[2020-12-31 15:55] VITALS: BP 105/72
[2020-12-31] MEDS: DIVALPROEX ER 500 MG TAB.ER.24H PO SCH (20:23)
[2020-12-31] MEDS: AMITRIPTYLINE HCL 50 MG TABLET PO SCH (20:23)
[2020-12-31] MEDS: MELATONIN 3 MG TABLET PO SCH (20:24)
[2020-12-31] MEDS: traZODone 50 MG TABLET. PO PRN (20:25)
[2020-12-31] MEDS: ATORVASTATIN CALCIUM 20 MG TABLET PO SCH (20:26)
--- NOTE | 2020-12-31 21:03 | PDOC ---
Exam Note: Gus Note: Please also refer to the separate dictated note~for this date of service dictated separately.~Patient seen individually. Discussed the patient with Nursing staff reviewed the chart.~Reviewed interim history and current functioning. Reviewed vital signs,~Labs/ Radiology~and current medications noted below. Continue current treatment with the changes noted in the dictated addendum note Assessment: Vital Signs/I&O: Vital Signs Date Time Temp Pulse Resp B/P (MAP) Pulse Ox O2 Delivery O2 Flow Rate FiO2 12/31/20 17:11 100 105/72 12/31/20 15:55 97.8 20 98 12/28/20 06:23 Room Air I & O 12/30/20 12/30/20 12/31/20 15:00 23:00 07:00 Intake Total 600 ml 360 ml Balance 600 ml 360 ml Labs: Laboratory Tests Test 12/31/20 10:35 White Blood Count 6.1 x10^3/uL (4.0-11.0) Red Blood Count 4.79 x10^6/uL (4.30-5.70) Hemoglobin 14.4 g/dL (13.0-17.5) Hematocrit 43.2 % (39.0-53.0) Mean Corpuscular Volume 90 fL (79-100) Mean Corpuscular Hemoglobin 30 pg (25-35) Mean Corpuscular Hemoglobin Concent 33 g/dL (31-37) Red Cell Distribution Width 14.2 % (11.5-14.5) Platelet Count 246 x10^3/uL (140-400) Neutrophils (%) (Auto) 59 % (31-73) Lymphocytes (%) (Auto) 27 % (24-48) Monocytes (%) (Auto) 11 % (0-9) H Eosinophils (%) (Auto) 2 % (0-3) Basophils (%) (Auto) 0 % (0-3) Neutrophils # (Auto) 3.6 x10^3uL (1.8-7.7) Lymphocytes # (Auto) 1.7 x10^3/uL (1.0-4.8) Monocytes # (Auto) 0.7 x10^3/uL (0.0-1.1) Eosinophils # (Auto) 0.1 x10^3/uL (0.0-0.7) Basophils # (Auto) 0.0 x10^3/uL (0.0-0.2) Sodium Level 141 mmol/L (136-145) Potassium Level 3.8 mmol/L (3.5-5.1) Chloride Level 104 mmol/L (98-107) Carbon Dioxide Level 31 mmol/L (21-32) Anion Gap 6 (6-14) Blood Urea Nitrogen 20 mg/dL (8-26) Creatinine 1.0 mg/dL (0.7-1.3) Estimated GFR (Cockcroft-Gault) 71.5 BUN/Creatinine Ratio 20 (6-20) Glucose Level 93 mg/dL (70-99) Calcium Level 8.9 mg/dL (8.5-10.1) Total Bilirubin 0.4 mg/dL (0.2-1.0) Aspartate Amino Transferase (AST) 17 U/L (15-37) Alanine Aminotransferase (ALT) 22 U/L (16-63) Alkaline Phosphatase 97 U/L (46-116) Total Protein 7.1 g/dL (6.4-8.2) Albumin 3.3 g/dL (3.4-5.0) L Albumin/Globulin Ratio 0.9 (1.0-1.7) L Current Medications: Meds: Laboratory Tests Test 12/31/20 10:35 White Blood Count 6.1 x10^3/uL Red Blood Count 4.79 x10^6/uL Hemoglobin 14.4 g/dL Hematocrit 43.2 % Mean Corpuscular Volume 90 fL Mean Corpuscular Hemoglobin 30 pg Mean Corpuscular Hemoglobin Concent 33 g/dL Red Cell Distribution Width 14.2 % Platelet Count 246 x10^3/uL Neutrophils (%) (Auto) 59 % Lymphocytes (%) (Auto) 27 % Monocytes (%) (Auto) 11 % Eosinophils (%) (Auto) 2 % Basophils (%) (Auto) 0 % Neutrophils # (Auto) 3.6 x10^3uL Lymphocytes # (Auto) 1.7 x10^3/uL Monocytes # (Auto) 0.7 x10^3/uL Eosinophils # (Auto) 0.1 x10^3/uL Basophils # (Auto) 0.0 x10^3/uL Sodium Level 141 mmol/L Potassium Level 3.8 mmol/L Chloride Level 104 mmol/L Carbon Dioxide Level 31 mmol/L Anion Gap 6 Blood Urea Nitrogen 20 mg/dL Creatinine 1.0 mg/dL Estimated GFR (Cockcroft-Gault) 71.5 BUN/Creatinine Ratio 20 Glucose Level 93 mg/dL Calcium Level 8.9 mg/dL Total Bilirubin 0.4 mg/dL Aspartate Amino Transf (AST/SGOT) 17 U/L Alanine Aminotransferase (ALT/SGPT) 22 U/L Alkaline Phosphatase 97 U/L Total Protein 7.1 g/dL Albumin 3.3 g/dL Albumin/Globulin Ratio 0.9 Current Medications Medications (Trade) Dose Ordered Sig/Evaristo Route PRN Reason Start Time Stop Time Status Last Admin Dose Admin Acetaminophen (Tylenol) 650 mg PRN Q6HRS PRN PO MILD PAIN / TEMP > 100.3'F 11/25/20 18:00 12/26/20 06:17 Multi-Ingredient Ointment (Analgesic [place]) 1 addison PRN QID PRN TP MUSCLE PAIN 11/25/20 18:00 Al Hydroxide/Mg Hydroxide (Mylanta Plus Xs) 15 ml PRN AFTMEALHC PRN PO DYSPEPSIA 11/25/20 18:00 12/10/20 18:52 Magnesium Hydroxide (Milk Of Magnesia) 2,400 mg PRN QHS PRN PO CONSTIPATION 11/25/20 18:00 12/13/20 08:36 Amlodipine Besylate (Norvasc) 10 mg DAILY PO 11/26/20 09:00 12/31/20 06:09 Aspirin (Aspirin Chewable) 81 mg DAILY PO 11/26/20 09:00 12/31/20 06:07 Carvedilol (Coreg) 6.25 mg BIDWMEALS PO 11/25/20 18:30 12/31/20 17:11 Lisinopril (Prinivil) 10 mg DAILY PO 11/26/20 09:00 11/26/20 16:16 DC Quetiapine Fumarate (SEROquel) 25 mg QHS PO 11/25/20 21:00 12/23/20 17:23 DC 12/22/20 20:04 Tamsulosin HCl (Flomax) 0.4 mg DAILY PO 11/26/20 09:00 12/31/20 06:12 Amoxicillin (Amoxil) 500 mg [id number] PO 11/25/20 21:00 12/02/20 14:01 DC 12/02/20 14:15 Atorvastatin Calcium (Lipitor) 40 mg QHS PO 11/25/20 21:00 12/31/20 20:26 Folic Acid (Folic Acid) 1 mg DAILY PO 11/26/20 09:00 12/31/20 06:12 Lidocaine (Lidoderm) 1 patch DAILY TD 11/26/20 09:00 12/31/20 06:07 Multivitamins/ Calcium (Thera-M Plus) 1 tab DAILY PO 11/26/20 09:00 12/31/20 06:11 Thiamine HCl (Vitamin B-1) 100 mg BID PO 11/25/20 21:00 12/31/20 20:24 Olanzapine (ZyPREXA ZYDIS) 2.5 mg PRN Q2HR PRN PO PSYCHOSIS 11/25/20 21:15 12/31/20 13:30 Trazodone HCl (Desyrel) 50 mg PRN QHS PRN PO INSOMNIA, MAY REPEAT IN 1HR 11/25/20 21:15 12/31/20 20:25 Mirtazapine (Remeron) 7.5 mg QHS PO 11/26/20 21:00 11/28/20 12:23 DC 11/27/20 20:00 Lactobacillus Rhamnosus (Culturelle) 1 cap BID PO 11/27/20 09:00 12/31/20 20:22 Sertraline HCl (Zoloft) 25 mg DAILY PO 11/28/20 09:00 11/30/20 09:01 DC 11/30/20 08:39 Sertraline HCl (Zoloft) 50 mg DAILY PO 12/01/20 09:00 12/03/20 11:00 DC 12/03/20 08:05 Mirtazapine (Remeron) 15 mg QHS PO 11/28/20 21:00 11/29/20 18:47 DC 11/28/20 19:38 Hydroxyzine HCl (Atarax) 25 mg PRN Q2HR PRN PO ABDOMINAL CRAMPS 11/28/20 21:45 12/29/20 00:54 Lorazepam (Ativan) 0.5 mg PRN Q4HRS PRN PO ANXIETY / AGITATION 11/28/20 21:45 11/29/20 21:45 DC Amitriptyline HCl (Elavil) 25 mg QHS PO 11/29/20 21:00 12/23/20 17:23 DC 12/22/20 20:04 Melatonin (Melatonin) 3 mg QHS PO 11/29/20 21:00 12/31/20 20:24 Sertraline HCl (Zoloft) 75 mg DAILY PO 12/04/20 09:00 12/31/20 06:11 Divalproex Sodium (Depakote Er) 500 mg QHS PO 12/02/20 21:00 12/05/20 12:29 DC 12/04/20 20:08 Divalproex Sodium (Depakote Er) 1,000 mg QHS PO 12/05/20 21:00 12/31/20 20:23 Quetiapine Fumarate (SEROquel) 12.5 mg DAILY PO 12/17/20 09:00 12/18/20 16:46 DC 12/18/20 08:01 Quetiapine Fumarate (SEROquel) 12.5 mg [id number] PO 12/19/20 09:00 12/23/20 17:23 DC 12/23/20 13:28 Quetiapine Fumarate (SEROquel) 25 mg TID PO 12/23/20 17:30 12/31/20 20:25 Amitriptyline HCl (Elavil) 50 mg QHS PO 12/23/20 21:00 12/31/20 20:23 Furosemide (Lasix) 80 mg 1X ONCE PO 12/30/20 16:30 12/30/20 16:31 DC 12/30/20 16:27 I have reviewed the current psychotropics carefully including drug interactions. Risk benefit ratio favors no change other than as noted in my dictated progress note. 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
--- NOTE | 2020-12-31 23:59 | NUR ---
Patient is wandering around the unit on assumption of care. He is in pleasant spirits. Disorganized, confused. Compliant with assessments, medications whole, and HS cares. No agitation. Patient denies any pain or discomfort so far this shift. He appears to be sleeping comfortably at present time. Will continue to monitor.
[2021-01-01 06:03] VITALS: BP 119/73
--- NOTE | 2021-01-01 08:08 | PDOC ---
Exam Note: Gus Note: This note is a late entry for 12/31/2020 covers elements not covered in my initial note. Subjective: The patient was seen on telehealth rounds in the evening of 12/31/2020 with Charmaine OVIEDO, reviewed the chart. The patient slept 7-1/4 hours previous night. Overall the patient remains confused, wanders the hallways, not aggressive, less exit seeking. Review of Systems: No CV, , pulmonary, eye, ENT system symptoms on review. Mental Status Exam: The patient is oriented to himself. Insight and judgment, recent and remote memory, attention and concentration, fund of knowledge is poor consistent with his diagnosis. No suicidal or homicidal ideation. Laboratory Data: Reviewed. Impression: Major neurocognitive disorder Alzheimer vascular with delusion, depression, behavioral disturbance. Anxiety disorder unspecified. Impulse control disorder unspecified. Plan: No change from initial note. Assessment: Vital Signs/I&O: Vital Signs Date Time Temp Pulse Resp B/P (MAP) Pulse Ox O2 Delivery O2 Flow Rate FiO2 01/01/21 06:03 97.2 77 18 119/73 (88) 98 12/28/20 06:23 Room Air I & O 12/31/20 12/31/20 01/01/21 15:00 23:00 07:00 Intake Total 840 ml 600 ml Balance 840 ml 600 ml Labs: Laboratory Tests Test 12/31/20 10:35 White Blood Count 6.1 x10^3/uL (4.0-11.0) Red Blood Count 4.79 x10^6/uL (4.30-5.70) Hemoglobin 14.4 g/dL (13.0-17.5) Hematocrit 43.2 % (39.0-53.0) Mean Corpuscular Volume 90 fL (79-100) Mean Corpuscular Hemoglobin 30 pg (25-35) Mean Corpuscular Hemoglobin Concent 33 g/dL (31-37) Red Cell Distribution Width 14.2 % (11.5-14.5) Platelet Count 246 x10^3/uL (140-400) Neutrophils (%) (Auto) 59 % (31-73) Lymphocytes (%) (Auto) 27 % (24-48) Monocytes (%) (Auto) 11 % (0-9) H Eosinophils (%) (Auto) 2 % (0-3) Basophils (%) (Auto) 0 % (0-3) Neutrophils # (Auto) 3.6 x10^3uL (1.8-7.7) Lymphocytes # (Auto) 1.7 x10^3/uL (1.0-4.8) Monocytes # (Auto) 0.7 x10^3/uL (0.0-1.1) Eosinophils # (Auto) 0.1 x10^3/uL (0.0-0.7) Basophils # (Auto) 0.0 x10^3/uL (0.0-0.2) Sodium Level 141 mmol/L (136-145) Potassium Level 3.8 mmol/L (3.5-5.1) Chloride Level 104 mmol/L (98-107) Carbon Dioxide Level 31 mmol/L (21-32) Anion Gap 6 (6-14) Blood Urea Nitrogen 20 mg/dL (8-26) Creatinine 1.0 mg/dL (0.7-1.3) Estimated GFR (Cockcroft-Gault) 71.5 BUN/Creatinine Ratio 20 (6-20) Glucose Level 93 mg/dL (70-99) Calcium Level 8.9 mg/dL (8.5-10.1) Total Bilirubin 0.4 mg/dL (0.2-1.0) Aspartate Amino Transferase (AST) 17 U/L (15-37) Alanine Aminotransferase (ALT) 22 U/L (16-63) Alkaline Phosphatase 97 U/L (46-116) Total Protein 7.1 g/dL (6.4-8.2) Albumin 3.3 g/dL (3.4-5.0) L Albumin/Globulin Ratio 0.9 (1.0-1.7) L Current Medications: Meds: Laboratory Tests Test 12/31/20 10:35 White Blood Count 6.1 x10^3/uL Red Blood Count 4.79 x10^6/uL Hemoglobin 14.4 g/dL Hematocrit 43.2 % Mean Corpuscular Volume 90 fL Mean Corpuscular Hemoglobin 30 pg Mean Corpuscular Hemoglobin Concent 33 g/dL Red Cell Distribution Width 14.2 % Platelet Count 246 x10^3/uL Neutrophils (%) (Auto) 59 % Lymphocytes (%) (Auto) 27 % Monocytes (%) (Auto) 11 % Eosinophils (%) (Auto) 2 % Basophils (%) (Auto) 0 % Neutrophils # (Auto) 3.6 x10^3uL Lymphocytes # (Auto) 1.7 x10^3/uL Monocytes # (Auto) 0.7 x10^3/uL Eosinophils # (Auto) 0.1 x10^3/uL Basophils # (Auto) 0.0 x10^3/uL Sodium Level 141 mmol/L Potassium Level 3.8 mmol/L Chloride Level 104 mmol/L Carbon Dioxide Level 31 mmol/L Anion Gap 6 Blood Urea Nitrogen 20 mg/dL Creatinine 1.0 mg/dL Estimated GFR (Cockcroft-Gault) 71.5 BUN/Creatinine Ratio 20 Glucose Level 93 mg/dL Calcium Level 8.9 mg/dL Total Bilirubin 0.4 mg/dL Aspartate Amino Transf (AST/SGOT) 17 U/L Alanine Aminotransferase (ALT/SGPT) 22 U/L Alkaline Phosphatase 97 U/L Total Protein 7.1 g/dL Albumin 3.3 g/dL Albumin/Globulin Ratio 0.9 Current Medications Medications (Trade) Dose Ordered Sig/Evaristo Route PRN Reason Start Time Stop Time Status Last Admin Dose Admin Acetaminophen (Tylenol) 650 mg PRN Q6HRS PRN PO MILD PAIN / TEMP > 100.3'F 11/25/20 18:00 12/26/20 06:17 Multi-Ingredient Ointment (Analgesic [place]) 1 addison PRN QID PRN TP MUSCLE PAIN 11/25/20 18:00 Al Hydroxide/Mg Hydroxide (Mylanta Plus Xs) 15 ml PRN AFTMEALHC PRN PO DYSPEPSIA 11/25/20 18:00 12/10/20 18:52 Magnesium Hydroxide (Milk Of Magnesia) 2,400 mg PRN QHS PRN PO CONSTIPATION 11/25/20 18:00 12/13/20 08:36 Amlodipine Besylate (Norvasc) 10 mg DAILY PO 11/26/20 09:00 12/31/20 06:09 Aspirin (Aspirin Chewable) 81 mg DAILY PO 11/26/20 09:00 12/31/20 06:07 Carvedilol (Coreg) 6.25 mg BIDWMEALS PO 11/25/20 18:30 12/31/20 17:11 Lisinopril (Prinivil) 10 mg DAILY PO 11/26/20 09:00 11/26/20 16:16 DC Quetiapine Fumarate (SEROquel) 25 mg QHS PO 11/25/20 21:00 12/23/20 17:23 DC 12/22/20 20:04 Tamsulosin HCl (Flomax) 0.4 mg DAILY PO 11/26/20 09:00 12/31/20 06:12 Amoxicillin (Amoxil) 500 mg [id number] PO 11/25/20 21:00 12/02/20 14:01 DC 12/02/20 14:15 Atorvastatin Calcium (Lipitor) 40 mg QHS PO 11/25/20 21:00 12/31/20 20:26 Folic Acid (Folic Acid) 1 mg DAILY PO 11/26/20 09:00 12/31/20 06:12 Lidocaine (Lidoderm) 1 patch DAILY TD 11/26/20 09:00 12/31/20 06:07 Multivitamins/ Calcium (Thera-M Plus) 1 tab DAILY PO 11/26/20 09:00 12/31/20 06:11 Thiamine HCl (Vitamin B-1) 100 mg BID PO 11/25/20 21:00 12/31/20 20:24 Olanzapine (ZyPREXA ZYDIS) 2.5 mg PRN Q2HR PRN PO PSYCHOSIS 11/25/20 21:15 12/31/20 13:30 Trazodone HCl (Desyrel) 50 mg PRN QHS PRN PO INSOMNIA, MAY REPEAT IN 1HR 11/25/20 21:15 12/31/20 20:25 Mirtazapine (Remeron) 7.5 mg QHS PO 11/26/20 21:00 11/28/20 12:23 DC 11/27/20 20:00 Lactobacillus Rhamnosus (Culturelle) 1 cap BID PO 11/27/20 09:00 12/31/20 20:22 Sertraline HCl (Zoloft) 25 mg DAILY PO 11/28/20 09:00 11/30/20 09:01 DC 11/30/20 08:39 Sertraline HCl (Zoloft) 50 mg DAILY PO 12/01/20 09:00 12/03/20 11:00 DC 12/03/20 08:05 Mirtazapine (Remeron) 15 mg QHS PO 11/28/20 21:00 11/29/20 18:47 DC 11/28/20 19:38 Hydroxyzine HCl (Atarax) 25 mg PRN Q2HR PRN PO ABDOMINAL CRAMPS 11/28/20 21:45 12/29/20 00:54 Lorazepam (Ativan) 0.5 mg PRN Q4HRS PRN PO ANXIETY / AGITATION 11/28/20 21:45 11/29/20 21:45 DC Amitriptyline HCl (Elavil) 25 mg QHS PO 11/29/20 21:00 12/23/20 17:23 DC 12/22/20 20:04 Melatonin (Melatonin) 3 mg QHS PO 11/29/20 21:00 12/31/20 20:24 Sertraline HCl (Zoloft) 75 mg DAILY PO 12/04/20 09:00 12/31/20 06:11 Divalproex Sodium (Depakote Er) 500 mg QHS PO 12/02/20 21:00 12/05/20 12:29 DC 12/04/20 20:08 Divalproex Sodium (Depakote Er) 1,000 mg QHS PO 12/05/20 21:00 12/31/20 20:23 Quetiapine Fumarate (SEROquel) 12.5 mg DAILY PO 12/17/20 09:00 12/18/20 16:46 DC 12/18/20 08:01 Quetiapine Fumarate (SEROquel) 12.5 mg [id number] PO 12/19/20 09:00 12/23/20 17:23 DC 12/23/20 13:28 Quetiapine Fumarate (SEROquel) 25 mg TID PO 12/23/20 17:30 12/31/20 20:25 Amitriptyline HCl (Elavil) 50 mg QHS PO 12/23/20 21:00 12/31/20 20:23 Furosemide (Lasix) 80 mg 1X ONCE PO 12/30/20 16:30 12/30/20 16:31 DC 12/30/20 16:27 I have reviewed the current psychotropics carefully including drug interactions. Risk benefit ratio favors no change other than as noted in my dictated progress note. Diagnosis: Problems: (1) Impulse control disorder, unspecified (2) Anxiety disorder, unspecified (3) Dementia, vascular, with depression (4) Dementia, vascular, with delusions (5) Dementia in Alzheimer's disease with depression (6) Dementia in Alzheimer's disease with delusions (7) Dementia of the Alzheimer's type with early onset with behavioral disturbance (8) Major neurocognitive disorder DONA BOTELLO MD Jan 01, 2021 08:08
[2021-01-01] MEDS: MULTIVITAMIN with MINERAL TABLET. PO SCH (08:09)
[2021-01-01] MEDS: THIAMINE 100 MG TABLET. PO SCH ×2 (08:09→20:05)
[2021-01-01] MEDS: ASPIRIN CHEWABLE 81 MG TABLET. PO SCH (08:09)
[2021-01-01] MEDS: TAMSULOSIN 0.4 MG CAP.ER.24H. PO SCH (08:09)
[2021-01-01] MEDS: SERTRALINE 25 MG TABLET. PO SCH (08:09)
[2021-01-01] MEDS: FOLIC ACID 1 MG TABLET PO SCH (08:09)
[2021-01-01] MEDS: QUEtiapine 25 MG TABLET. PO SCH ×3 (08:09→20:07)
[2021-01-01] MEDS: amLODIPine BESYLATE 10 MG TABLET PO SCH (08:09)
[2021-01-01] MEDS: LIDOCAINE (700MG/PATCH) PATCH. TD SCH (08:10)
[2021-01-01] MEDS: LACTOBACILLUS RHAMNOSUS GG 1 CAPSULE. PO SCH ×2 (08:10→20:04)
[2021-01-01] MEDS: CARVEDILOL 6.25 MG TABLET PO SCH ×2 (08:10→17:00)
[2021-01-01 16:04] VITALS: BP 126/77
--- NOTE | 2021-01-01 16:11 | NUR ---
Pt up adl in halls. Wanders. Pleasant and redirectable. Compliant with meds and cares.
[2021-01-01] MEDS: DIVALPROEX ER 500 MG TAB.ER.24H PO SCH (20:06)
[2021-01-01] MEDS: ATORVASTATIN CALCIUM 20 MG TABLET PO SCH (20:06)
[2021-01-01] MEDS: AMITRIPTYLINE HCL 50 MG TABLET PO SCH (20:07)
[2021-01-01] MEDS: traZODone 50 MG TABLET. PO PRN (20:07)
[2021-01-01] MEDS: MELATONIN 3 MG TABLET PO SCH (20:09)
--- NOTE | 2021-01-01 21:03 | PDOC ---
Exam Note: Gus Note: Please also refer to the separate dictated note~for this date of service dictated separately.~Patient seen individually. Discussed the patient with Nursing staff reviewed the chart.~Reviewed interim history and current functioning. Reviewed vital signs,~Labs/ Radiology~and current medications noted below. Continue current treatment with the changes noted in the dictated addendum note Assessment: Vital Signs/I&O: Vital Signs Date Time Temp Pulse Resp B/P (MAP) Pulse Ox O2 Delivery O2 Flow Rate FiO2 01/01/21 17:00 80 126/77 01/01/21 16:04 97.9 18 96 Room Air I & O 12/31/20 12/31/20 01/01/21 15:00 23:00 07:00 Intake Total 840 ml 600 ml Balance 840 ml 600 ml Current Medications: Meds: Current Medications Medications (Trade) Dose Ordered Sig/Evaristo Route PRN Reason Start Time Stop Time Status Last Admin Dose Admin Acetaminophen (Tylenol) 650 mg PRN Q6HRS PRN PO MILD PAIN / TEMP > 100.3'F 11/25/20 18:00 12/26/20 06:17 Multi-Ingredient Ointment (Analgesic [place]) 1 addison PRN QID PRN TP MUSCLE PAIN 11/25/20 18:00 Al Hydroxide/Mg Hydroxide (Mylanta Plus Xs) 15 ml PRN AFTMEALHC PRN PO DYSPEPSIA 11/25/20 18:00 12/10/20 18:52 Magnesium Hydroxide (Milk Of Magnesia) 2,400 mg PRN QHS PRN PO CONSTIPATION 11/25/20 18:00 12/13/20 08:36 Amlodipine Besylate (Norvasc) 10 mg DAILY PO 11/26/20 09:00 01/01/21 08:09 Aspirin (Aspirin Chewable) 81 mg DAILY PO 11/26/20 09:00 01/01/21 08:09 Carvedilol (Coreg) 6.25 mg BIDWMEALS PO 11/25/20 18:30 01/01/21 17:00 Lisinopril (Prinivil) 10 mg DAILY PO 11/26/20 09:00 11/26/20 16:16 DC Quetiapine Fumarate (SEROquel) 25 mg QHS PO 11/25/20 21:00 12/23/20 17:23 DC 12/22/20 20:04 Tamsulosin HCl (Flomax) 0.4 mg DAILY PO 11/26/20 09:00 01/01/21 08:09 Amoxicillin (Amoxil) 500 mg [id number] PO 11/25/20 21:00 12/02/20 14:01 DC 12/02/20 14:15 Atorvastatin Calcium (Lipitor) 40 mg QHS PO 11/25/20 21:00 01/01/21 20:06 Folic Acid (Folic Acid) 1 mg DAILY PO 11/26/20 09:00 01/01/21 08:09 Lidocaine (Lidoderm) 1 patch DAILY TD 11/26/20 09:00 01/01/21 08:10 Multivitamins/ Calcium (Thera-M Plus) 1 tab DAILY PO 11/26/20 09:00 01/01/21 08:09 Thiamine HCl (Vitamin B-1) 100 mg BID PO 11/25/20 21:00 01/01/21 20:05 Olanzapine (ZyPREXA ZYDIS) 2.5 mg PRN Q2HR PRN PO PSYCHOSIS 11/25/20 21:15 01/01/21 13:41 Trazodone HCl (Desyrel) 50 mg PRN QHS PRN PO INSOMNIA, MAY REPEAT IN 1HR 11/25/20 21:15 01/01/21 20:07 Mirtazapine (Remeron) 7.5 mg QHS PO 11/26/20 21:00 11/28/20 12:23 DC 11/27/20 20:00 Lactobacillus Rhamnosus (Culturelle) 1 cap BID PO 11/27/20 09:00 01/01/21 20:04 Sertraline HCl (Zoloft) 25 mg DAILY PO 11/28/20 09:00 11/30/20 09:01 DC 11/30/20 08:39 Sertraline HCl (Zoloft) 50 mg DAILY PO 12/01/20 09:00 12/03/20 11:00 DC 12/03/20 08:05 Mirtazapine (Remeron) 15 mg QHS PO 11/28/20 21:00 11/29/20 18:47 DC 11/28/20 19:38 Hydroxyzine HCl (Atarax) 25 mg PRN Q2HR PRN PO ABDOMINAL CRAMPS 11/28/20 21:45 12/29/20 00:54 Lorazepam (Ativan) 0.5 mg PRN Q4HRS PRN PO ANXIETY / AGITATION 11/28/20 21:45 11/29/20 21:45 DC Amitriptyline HCl (Elavil) 25 mg QHS PO 11/29/20 21:00 12/23/20 17:23 DC 12/22/20 20:04 Melatonin (Melatonin) 3 mg QHS PO 11/29/20 21:00 01/01/21 20:09 Sertraline HCl (Zoloft) 75 mg DAILY PO 12/04/20 09:00 01/01/21 08:09 Divalproex Sodium (Depakote Er) 500 mg QHS PO 12/02/20 21:00 12/05/20 12:29 DC 12/04/20 20:08 Divalproex Sodium (Depakote Er) 1,000 mg QHS PO 12/05/20 21:00 01/01/21 20:06 Quetiapine Fumarate (SEROquel) 12.5 mg DAILY PO 12/17/20 09:00 12/18/20 16:46 DC 12/18/20 08:01 Quetiapine Fumarate (SEROquel) 12.5 mg [id number] PO 12/19/20 09:00 12/23/20 17:23 DC 12/23/20 13:28 Quetiapine Fumarate (SEROquel) 25 mg TID PO 12/23/20 17:30 01/01/21 20:07 Amitriptyline HCl (Elavil) 50 mg QHS PO 12/23/20 21:00 01/01/21 20:07 Furosemide (Lasix) 80 mg 1X ONCE PO 12/30/20 16:30 12/30/20 16:31 DC 12/30/20 16:27 I have reviewed the current psychotropics carefully including drug interactions. Risk benefit ratio favors no change other than as noted in my dictated progress note. Diagnosis: Problems: (1) Major neurocognitive disorder (2) Impulse control disorder, unspecified (3) Anxiety disorder, unspecified (4) Dementia, vascular, with depression (5) Dementia, vascular, with delusions (6) Dementia in Alzheimer's disease with depression (7) Dementia in Alzheimer's disease with delusions (8) Dementia of the Alzheimer's type with early onset with behavioral disturbance DONA BOTELLO MD Jan 01, 2021 21:03
[2021-01-02 06:30] VITALS: BP 139/78
[2021-01-02] MEDS: FOLIC ACID 1 MG TABLET PO SCH (09:09)
[2021-01-02] MEDS: CARVEDILOL 6.25 MG TABLET PO SCH ×2 (09:09→17:05)
[2021-01-02] MEDS: LACTOBACILLUS RHAMNOSUS GG 1 CAPSULE. PO SCH ×2 (09:09→19:37)
[2021-01-02] MEDS: ASPIRIN CHEWABLE 81 MG TABLET. PO SCH (09:09)
[2021-01-02] MEDS: TAMSULOSIN 0.4 MG CAP.ER.24H. PO SCH (09:09)
[2021-01-02] MEDS: MULTIVITAMIN with MINERAL TABLET. PO SCH (09:10)
[2021-01-02] MEDS: THIAMINE 100 MG TABLET. PO SCH ×2 (09:10→19:37)
[2021-01-02] MEDS: QUEtiapine 25 MG TABLET. PO SCH ×3 (09:10→19:37)
[2021-01-02] MEDS: SERTRALINE 25 MG TABLET. PO SCH (09:10)
[2021-01-02] MEDS: amLODIPine BESYLATE 10 MG TABLET PO SCH (09:10)
[2021-01-02] MEDS: LIDOCAINE (700MG/PATCH) PATCH. TD SCH (09:10)
--- NOTE | 2021-01-02 11:28 | NUR ---
WEEKLY ACTIVITY THERAPY NOTE Date of Admission: 11/25/2020 Date of AT Assessment: 11/28/2020 Precipitating behaviors that initiated intake and admission: Patient was reported to be confused, agitated, delusional, hallucinating, removing IVs, and not cooperating with cares at [facility]. Goal aimed: to increase engagement and socialization Initial Goal: Pt. will participate in at least one Activity Therapy group per day. Weekly progress towards goal: did not achieve, no group on Saturday Group participation level: 3 min, 2 mod, 2 full Weekly highlights: fully engaged in music activity where he was asked to guess what decade the songs came from Behaviors observed: wanders unit, sleeping off and on in groups, engagement level varies from day to day, harder to redirect at times this week, door checking Plan: no change to goal Beneficial adaptations:
--- NOTE | 2021-01-02 11:44 | NUR ---
Pt is calm, cooperative, confused and compliant. He is delusional believing he is late for work. He is compliant with his medication and assessment.
--- NOTE | 2021-01-02 13:44 | TX PLAN ---
Interdisciplinary Tx Plan Admission Information Nov 25, 2020 at 15:25 Legal Status (on Admission): Voluntary, Court Appointed Guardian, Court Appointed Conservat DPOA/Guardian Name: Maxwell Martinez- guardian Contact Verified Code Status: Full Code Allergies: Coded Allergies: No Known Drug Allergies (Unverified , 11/25/20) Estimated Length of Stay: 14 Diagnoses Primary Diagnosis: Major neurocognitive d/o, vascular, alzheimers with delusions, depresion, BD; Anxiety d/o unspecified; impulse control d/o Reasons for Admission: Aggressive, Delusions, Agitated, Alcohol Abuse, Sig. Change Sleep, Anxiety/Panic, Hallucinations, Combative, Confusion/Disoriented, Poor impulse control Problem in Patient's Words: Per Scottie, " Love and caring about her and my family." Per guardian, unsafe to live at home alone with level of confusion and memory impairment. Additional Admission Comments: Per intake record, hallucinating, delusional, aggressive during [facility] care, confused, restless, nonsensical speech, anxious, insomnia, poor safety, pulled out IV, uncooperative, agitated, and yelling out. Problems Active Problems: Confused Delsuional Hallucinating Wandering, intrusive, restless Poor sleep Inactive Problems: Adequate meal intake Compliant with meds Pt Strengths/Limitations Ability for [place]: Poor Cognitive Functioning/Ability: Poor Communication Skills/Ability: Fair Financial Resources: Fair Insight/Judgement: Poor Intellectual Ability: Fair Physical Health: Fair Social Skills: Fair Stability in Family: Poor Verbal Skills: Fair Discharge Criteria Discharge Criteria: Adequate arrangements @DC, Improved behavior, Improved mood/thought Preliminary Discharge Plan Preliminary DC Plan: Placement Needed Special Precautions Special Precautions: Agitation/Assault Fall Risk: High Initial D/C Plan Scottie will need placement. [facility] is in the process of determining if a medicaid applincation will need to be filed to pay for halfway care. Identified Discharge Needs: Scottie will need placement due to memory impairment. Currently Utilized Resources Currently Utilized Resources/P: PCP Referrals Community Resources: Placement referral PCP Psychiatry if available Identified Problems/Hx/Goals Objectives/Short-Term Goals Short Term Goals: Control abnormal behavior, Dec. Aggression, Dec. Anxiety/Panic, Dec. Hallucination/Delus, Dec. Outbursts, Medication Stabilization, Monitor Med Effects Short Term Goals in Patient's: Melvin Rubin, "I hope to conquer even better and us get along." Interventions/Frequency Staff Interventions/Frequency&: Nursing to provide routine safety checks, medication administration, and adl support. Psychiatry thre times weekly. SW visits twice weekly. Recreational and SW groups as Scottie will participate. 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 Social: Scottie enjoys basketball, swimming, and country music. Education: Scottie reported graduating high school. Community Follow-up PCP Psychiatry if available Placement referral Community Provider/Family Inpu: Treatment team meeting was held on 11/28/20. fruit checker of treatment plan was enterred on 11/29/20. felix Arreola, declined to be involed in team meetings but does want to know any recommendations concerning Scottie. 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 Pt is pleasant and interactive with staff. Can be irritable when redirected while he is door checking and exit seeking. Pt continues to be delusional believing that he is going to be late to work. Pt is medication compliant with meds whole and needs encouragement to participate within group activities. Referrals are being sent out for placement. Pt guardian needs a letter stating that pt is not able to make his own decision and the discharge goal for pt to be placed on a Memory Care unit. BA MUÑIZ Jan 02, 2021 13:44
[2021-01-02 15:17] VITALS: BP 121/75
[2021-01-02] MEDS: ATORVASTATIN CALCIUM 20 MG TABLET PO SCH (19:36)
[2021-01-02] MEDS: AMITRIPTYLINE HCL 50 MG TABLET PO SCH (19:37)
[2021-01-02] MEDS: MELATONIN 3 MG TABLET PO SCH (19:37)
[2021-01-02] MEDS: DIVALPROEX ER 500 MG TAB.ER.24H PO SCH (19:37)
--- NOTE | 2021-01-02 21:09 | PDOC ---
Exam Note: Gus Note: This note is a late entry for 01/01/2021 covers elements not covered in my initial note. Subjective: The patient was seen on telehealth rounds in the evening of 01/01/2021 with Charmaine OVIEDO, reviewed the chart. The patient slept 3-3/4 hours previous night. Overall the patient has not been exit seeking, remains confused. Review of Systems: No CV, , pulmonary, eye, ENT system symptoms on review. Mental Status Exam: The patient is pleasant and smiling, oriented to himself. Insight and judgment, recent and remote memory, attention and concentration, fund of knowledge is poor consistent with his diagnosis. No suicidal or homicidal ideation. Laboratory Data: Reviewed. Impression: Major neurocognitive disorder Alzheimer vascular with delusion, depression, behavioral disturbance. Anxiety disorder unspecified. Impulse control disorder unspecified. Plan: No change from initial note. Assessment: Vital Signs/I&O: Vital Signs Date Time Temp Pulse Resp B/P (MAP) Pulse Ox O2 Delivery O2 Flow Rate FiO2 01/02/21 17:05 73 121/75 01/02/21 15:17 97.5 16 95 01/01/21 16:04 Room Air I & O 01/01/21 01/01/21 01/02/21 15:00 23:00 07:00 Intake Total 480 ml 480 ml Balance 480 ml 480 ml Current Medications: Meds: Current Medications Medications (Trade) Dose Ordered Sig/Evaristo Route PRN Reason Start Time Stop Time Status Last Admin Dose Admin Acetaminophen (Tylenol) 650 mg PRN Q6HRS PRN PO MILD PAIN / TEMP > 100.3'F 11/25/20 18:00 12/26/20 06:17 Multi-Ingredient Ointment (Analgesic [place]) 1 addison PRN QID PRN TP MUSCLE PAIN 11/25/20 18:00 Al Hydroxide/Mg Hydroxide (Mylanta Plus Xs) 15 ml PRN AFTMEALHC PRN PO DYSPEPSIA 11/25/20 18:00 12/10/20 18:52 Magnesium Hydroxide (Milk Of Magnesia) 2,400 mg PRN QHS PRN PO CONSTIPATION 11/25/20 18:00 12/13/20 08:36 Amlodipine Besylate (Norvasc) 10 mg DAILY PO 11/26/20 09:00 01/02/21 09:10 Aspirin (Aspirin Chewable) 81 mg DAILY PO 11/26/20 09:00 01/02/21 09:09 Carvedilol (Coreg) 6.25 mg BIDWMEALS PO 11/25/20 18:30 01/02/21 17:05 Lisinopril (Prinivil) 10 mg DAILY PO 11/26/20 09:00 11/26/20 16:16 DC Quetiapine Fumarate (SEROquel) 25 mg QHS PO 11/25/20 21:00 12/23/20 17:23 DC 12/22/20 20:04 Tamsulosin HCl (Flomax) 0.4 mg DAILY PO 11/26/20 09:00 01/02/21 09:09 Amoxicillin (Amoxil) 500 mg [id number] PO 11/25/20 21:00 12/02/20 14:01 DC 12/02/20 14:15 Atorvastatin Calcium (Lipitor) 40 mg QHS PO 11/25/20 21:00 01/02/21 19:36 Folic Acid (Folic Acid) 1 mg DAILY PO 11/26/20 09:00 01/02/21 09:09 Lidocaine (Lidoderm) 1 patch DAILY TD 11/26/20 09:00 01/02/21 09:10 Multivitamins/ Calcium (Thera-M Plus) 1 tab DAILY PO 11/26/20 09:00 01/02/21 09:10 Thiamine HCl (Vitamin B-1) 100 mg BID PO 11/25/20 21:00 01/02/21 19:37 Olanzapine (ZyPREXA ZYDIS) 2.5 mg PRN Q2HR PRN PO PSYCHOSIS 11/25/20 21:15 01/01/21 13:41 Trazodone HCl (Desyrel) 50 mg PRN QHS PRN PO INSOMNIA, MAY REPEAT IN 1HR 11/25/20 21:15 01/01/21 20:07 Mirtazapine (Remeron) 7.5 mg QHS PO 11/26/20 21:00 11/28/20 12:23 DC 11/27/20 20:00 Lactobacillus Rhamnosus (Culturelle) 1 cap BID PO 11/27/20 09:00 01/02/21 19:37 Sertraline HCl (Zoloft) 25 mg DAILY PO 11/28/20 09:00 11/30/20 09:01 DC 11/30/20 08:39 Sertraline HCl (Zoloft) 50 mg DAILY PO 12/01/20 09:00 12/03/20 11:00 DC 12/03/20 08:05 Mirtazapine (Remeron) 15 mg QHS PO 11/28/20 21:00 11/29/20 18:47 DC 11/28/20 19:38 Hydroxyzine HCl (Atarax) 25 mg PRN Q2HR PRN PO ABDOMINAL CRAMPS 11/28/20 21:45 12/29/20 00:54 Lorazepam (Ativan) 0.5 mg PRN Q4HRS PRN PO ANXIETY / AGITATION 11/28/20 21:45 11/29/20 21:45 DC Amitriptyline HCl (Elavil) 25 mg QHS PO 11/29/20 21:00 12/23/20 17:23 DC 12/22/20 20:04 Melatonin (Melatonin) 3 mg QHS PO 11/29/20 21:00 01/02/21 19:37 Sertraline HCl (Zoloft) 75 mg DAILY PO 12/04/20 09:00 01/02/21 09:10 Divalproex Sodium (Depakote Er) 500 mg QHS PO 12/02/20 21:00 12/05/20 12:29 DC 12/04/20 20:08 Divalproex Sodium (Depakote Er) 1,000 mg QHS PO 12/05/20 21:00 01/02/21 19:37 Quetiapine Fumarate (SEROquel) 12.5 mg DAILY PO 12/17/20 09:00 12/18/20 16:46 DC 12/18/20 08:01 Quetiapine Fumarate (SEROquel) 12.5 mg [id number] PO 12/19/20 09:00 12/23/20 17:23 DC 12/23/20 13:28 Quetiapine Fumarate (SEROquel) 25 mg TID PO 12/23/20 17:30 01/02/21 19:37 Amitriptyline HCl (Elavil) 50 mg QHS PO 12/23/20 21:00 01/02/21 19:37 Furosemide (Lasix) 80 mg 1X ONCE PO 12/30/20 16:30 12/30/20 16:31 DC 12/30/20 16:27 I have reviewed the current psychotropics carefully including drug interactions. Risk benefit ratio favors no change other than as noted in my dictated progress note. Diagnosis: Problems: (1) Major neurocognitive disorder (2) Impulse control disorder, unspecified (3) Anxiety disorder, unspecified (4) Dementia, vascular, with depression (5) Dementia, vascular, with delusions (6) Dementia in Alzheimer's disease with depression (7) Dementia in Alzheimer's disease with delusions (8) Dementia of the Alzheimer's type with early onset with behavioral disturbance DONA BOTELLO MD Jan 02, 2021 21:09
--- NOTE | 2021-01-02 21:31 | PDOC ---
Exam Note: Gus Note: Please also refer to the separate dictated note~for this date of service dictated separately.~Patient seen individually. Discussed the patient with Nursing staff reviewed the chart.~Reviewed interim history and current functioning. Reviewed vital signs,~Labs/ Radiology~and current medications noted below. Continue current treatment with the changes noted in the dictated addendum note Assessment: Vital Signs/I&O: Vital Signs Date Time Temp Pulse Resp B/P (MAP) Pulse Ox O2 Delivery O2 Flow Rate FiO2 01/02/21 17:05 73 121/75 01/02/21 15:17 97.5 16 95 01/01/21 16:04 Room Air I & O 01/01/21 01/01/21 01/02/21 15:00 23:00 07:00 Intake Total 480 ml 480 ml Balance 480 ml 480 ml Current Medications: I have reviewed the current psychotropics carefully including drug interactions. Risk benefit ratio favors no change other than as noted in my dictated progress note. Diagnosis: Problems: (1) Major neurocognitive disorder (2) Impulse control disorder, unspecified (3) Anxiety disorder, unspecified (4) Dementia, vascular, with depression (5) Dementia, vascular, with delusions (6) Dementia in Alzheimer's disease with depression (7) Dementia in Alzheimer's disease with delusions (8) Dementia of the Alzheimer's type with early onset with behavioral disturbance DONA BOTELLO MD Jan 02, 2021 21:31
[2021-01-02] MEDS: traZODone 50 MG TABLET. PO PRN (22:46)
--- NOTE | 2021-01-02 23:57 | NUR ---
Nursing Note Pt wanders the unit visiting with male peer, talking about work and cars. Pt med compliant and cooperative. Later patient wanders out into hallway, confused, thinking it was time to head to work. Trazodone given and told patient to get some more rest. Pt in bed asleep currently.
[2021-01-03] MEDS: traZODone 50 MG TABLET. PO PRN (02:21)
[2021-01-03 06:19] VITALS: BP 145/74
[2021-01-03] MEDS: CARVEDILOL 6.25 MG TABLET PO SCH ×2 (08:22→17:00)
[2021-01-03] MEDS: TAMSULOSIN 0.4 MG CAP.ER.24H. PO SCH (08:23)
[2021-01-03] MEDS: QUEtiapine 25 MG TABLET. PO SCH ×3 (08:23→20:01)
[2021-01-03] MEDS: THIAMINE 100 MG TABLET. PO SCH ×2 (08:23→20:01)
[2021-01-03] MEDS: FOLIC ACID 1 MG TABLET PO SCH (08:23)
[2021-01-03] MEDS: MULTIVITAMIN with MINERAL TABLET. PO SCH (08:23)
[2021-01-03] MEDS: amLODIPine BESYLATE 10 MG TABLET PO SCH (08:23)
[2021-01-03] MEDS: ASPIRIN CHEWABLE 81 MG TABLET. PO SCH (08:23)
[2021-01-03] MEDS: LACTOBACILLUS RHAMNOSUS GG 1 CAPSULE. PO SCH ×2 (08:23→20:02)
[2021-01-03] MEDS: SERTRALINE 25 MG TABLET. PO SCH (08:23)
[2021-01-03] MEDS: LIDOCAINE (700MG/PATCH) PATCH. TD SCH (08:24)
--- NOTE | 2021-01-03 08:33 | PDOC ---
Exam Note: Gus Note: This note is a late entry for 01/02/2021 covers elements not covered in my initial note. Subjective: The patient was seen face to face in the morning of 01/02/2021 for a treatment team meeting with Mell Larios, Dolores Contreras and Denise (social security assessor), Mikayla Fiore, activity therapy and Hanane OVIEDO, reviewed the chart. The patient slept 6-3/4 hours previous night. We discussed the patients progress, placement options. Social service staff is actively pursuing this. He believes he is at work and gets confused, exit seeking is less than before. He followed me around the unit on rounds. Review of Systems: No CV, , pulmonary, eye, ENT system symptoms on review. Mental Status Exam: The patient is pleasant and smiling, oriented to himself. Insight and judgment, recent and remote memory, attention and concentration, fund of knowledge is poor consistent with his diagnosis. No suicidal or homicidal ideation. Laboratory Data: Reviewed. Impression: Major neurocognitive disorder Alzheimer vascular with delusion, depression, behavioral disturbance. Anxiety disorder unspecified. Impulse control disorder unspecified. Plan: No change from initial note. Assessment: Vital Signs/I&O: Vital Signs Date Time Temp Pulse Resp B/P (MAP) Pulse Ox O2 Delivery O2 Flow Rate FiO2 01/03/21 08:23 61 145/74 01/03/21 06:19 98.2 18 94 01/01/21 16:04 Room Air I & O 01/02/21 01/02/21 01/03/21 15:00 23:00 07:00 Intake Total 720 ml 720 ml Balance 720 ml 720 ml Current Medications: Meds: Current Medications Medications (Trade) Dose Ordered Sig/Evaristo Route PRN Reason Start Time Stop Time Status Last Admin Dose Admin Acetaminophen (Tylenol) 650 mg PRN Q6HRS PRN PO MILD PAIN / TEMP > 100.3'F 11/25/20 18:00 12/26/20 06:17 Multi-Ingredient Ointment (Analgesic [place]) 1 addison PRN QID PRN TP MUSCLE PAIN 11/25/20 18:00 Al Hydroxide/Mg Hydroxide (Mylanta Plus Xs) 15 ml PRN AFTMEALHC PRN PO DYSPEPSIA 11/25/20 18:00 12/10/20 18:52 Magnesium Hydroxide (Milk Of Magnesia) 2,400 mg PRN QHS PRN PO CONSTIPATION 11/25/20 18:00 12/13/20 08:36 Amlodipine Besylate (Norvasc) 10 mg DAILY PO 11/26/20 09:00 01/03/21 08:23 Aspirin (Aspirin Chewable) 81 mg DAILY PO 11/26/20 09:00 01/03/21 08:23 Carvedilol (Coreg) 6.25 mg BIDWMEALS PO 11/25/20 18:30 01/03/21 08:22 Lisinopril (Prinivil) 10 mg DAILY PO 11/26/20 09:00 11/26/20 16:16 DC Quetiapine Fumarate (SEROquel) 25 mg QHS PO 11/25/20 21:00 12/23/20 17:23 DC 12/22/20 20:04 Tamsulosin HCl (Flomax) 0.4 mg DAILY PO 11/26/20 09:00 01/03/21 08:23 Amoxicillin (Amoxil) 500 mg [id number] PO 11/25/20 21:00 12/02/20 14:01 DC 12/02/20 14:15 Atorvastatin Calcium (Lipitor) 40 mg QHS PO 11/25/20 21:00 01/02/21 19:36 Folic Acid (Folic Acid) 1 mg DAILY PO 11/26/20 09:00 01/03/21 08:23 Lidocaine (Lidoderm) 1 patch DAILY TD 11/26/20 09:00 01/03/21 08:24 Multivitamins/ Calcium (Thera-M Plus) 1 tab DAILY PO 11/26/20 09:00 01/03/21 08:23 Thiamine HCl (Vitamin B-1) 100 mg BID PO 11/25/20 21:00 01/03/21 08:23 Olanzapine (ZyPREXA ZYDIS) 2.5 mg PRN Q2HR PRN PO PSYCHOSIS 11/25/20 21:15 01/01/21 13:41 Trazodone HCl (Desyrel) 50 mg PRN QHS PRN PO INSOMNIA, MAY REPEAT IN 1HR 11/25/20 21:15 01/03/21 02:21 Mirtazapine (Remeron) 7.5 mg QHS PO 11/26/20 21:00 11/28/20 12:23 DC 11/27/20 20:00 Lactobacillus Rhamnosus (Culturelle) 1 cap BID PO 11/27/20 09:00 01/03/21 08:23 Sertraline HCl (Zoloft) 25 mg DAILY PO 11/28/20 09:00 11/30/20 09:01 DC 11/30/20 08:39 Sertraline HCl (Zoloft) 50 mg DAILY PO 12/01/20 09:00 12/03/20 11:00 DC 12/03/20 08:05 Mirtazapine (Remeron) 15 mg QHS PO 11/28/20 21:00 11/29/20 18:47 DC 11/28/20 19:38 Hydroxyzine HCl (Atarax) 25 mg PRN Q2HR PRN PO ABDOMINAL CRAMPS 11/28/20 21:45 12/29/20 00:54 Lorazepam (Ativan) 0.5 mg PRN Q4HRS PRN PO ANXIETY / AGITATION 11/28/20 21:45 11/29/20 21:45 DC Amitriptyline HCl (Elavil) 25 mg QHS PO 11/29/20 21:00 12/23/20 17:23 DC 12/22/20 20:04 Melatonin (Melatonin) 3 mg QHS PO 11/29/20 21:00 01/02/21 19:37 Sertraline HCl (Zoloft) 75 mg DAILY PO 12/04/20 09:00 01/03/21 08:23 Divalproex Sodium (Depakote Er) 500 mg QHS PO 12/02/20 21:00 12/05/20 12:29 DC 12/04/20 20:08 Divalproex Sodium (Depakote Er) 1,000 mg QHS PO 12/05/20 21:00 01/02/21 19:37 Quetiapine Fumarate (SEROquel) 12.5 mg DAILY PO 12/17/20 09:00 12/18/20 16:46 DC 12/18/20 08:01 Quetiapine Fumarate (SEROquel) 12.5 mg [id number] PO 12/19/20 09:00 12/23/20 17:23 DC 12/23/20 13:28 Quetiapine Fumarate (SEROquel) 25 mg TID PO 12/23/20 17:30 01/03/21 08:23 Amitriptyline HCl (Elavil) 50 mg QHS PO 12/23/20 21:00 01/02/21 19:37 Furosemide (Lasix) 80 mg 1X ONCE PO 12/30/20 16:30 12/30/20 16:31 DC 12/30/20 16:27 I have reviewed the current psychotropics carefully including drug interactions. Risk benefit ratio favors no change other than as noted in my dictated progress note. Diagnosis: Problems: (1) Major neurocognitive disorder (2) Impulse control disorder, unspecified (3) Anxiety disorder, unspecified (4) Dementia, vascular, with depression (5) Dementia, vascular, with delusions (6) Dementia in Alzheimer's disease with depression (7) Dementia in Alzheimer's disease with delusions (8) Dementia of the Alzheimer's type with early onset with behavioral disturbance DONA BOTELLO MD Jan 03, 2021 08:33
--- NOTE | 2021-01-03 14:15 | NUR ---
MARY had an email exchange with pt guardian, Mell, who requested reading the letter MARY composed to aid in getting the LTC policy to cover pt placement and waive the initial fee. MARY will have the psychiatrist look the account over and have signatures completed.
[2021-01-03 15:50] VITALS: BP 100/71
--- NOTE | 2021-01-03 16:28 | NUR ---
Patient in room eating breakfast sitting on edge of bed at time of assessment. Patient is alert but confused and forgetful. He does not know where he is or why. He continues to think he is at work at that he needs to get his jobs done. He gets frustrated at times with us but is easily redirected and sits cooperatively listening to us. Scottie continues to wander around facility sometimes entering other patients We will continue to monitor patient and his whereabouts to make sure he is not disturbing another patients. There are no further concerns at this time.
--- NOTE | 2021-01-03 16:30 | NUR ---
Placement updates: [facility] Issac Thakkar [facility]
--- NOTE | 2021-01-03 18:35 | NUR ---
Toward dinner and evening time, patient continues to become agitated and states he wants to leave to go to work. He continues to try to get out of the doors. Zydis given to patient to help to calm him down before he gets to agitated.
[2021-01-03] MEDS: ATORVASTATIN CALCIUM 20 MG TABLET PO SCH (20:00)
[2021-01-03] MEDS: DIVALPROEX ER 500 MG TAB.ER.24H PO SCH (20:01)
[2021-01-03] MEDS: MELATONIN 3 MG TABLET PO SCH (20:01)
[2021-01-03] MEDS: AMITRIPTYLINE HCL 50 MG TABLET PO SCH (20:01)
[2021-01-03] MEDS: traZODone 100 MG TABLET. PO SCH (20:01)
--- NOTE | 2021-01-03 20:57 | PDOC ---
Exam Note: Gus Note: Please also refer to the separate dictated note~for this date of service dictated separately.~Patient seen individually. Discussed the patient with Nursing staff reviewed the chart.~Reviewed interim history and current functioning. Reviewed vital signs,~Labs/ Radiology~and current medications noted below. Continue current treatment with the changes noted in the dictated addendum note Assessment: Vital Signs/I&O: Vital Signs Date Time Temp Pulse Resp B/P (MAP) Pulse Ox O2 Delivery O2 Flow Rate FiO2 01/03/21 17:00 80 100/71 01/03/21 15:50 97.6 18 95 01/01/21 16:04 Room Air I & O 01/02/21 01/02/21 01/03/21 15:00 23:00 07:00 Intake Total 720 ml 720 ml Balance 720 ml 720 ml Current Medications: Meds: Current Medications Medications (Trade) Dose Ordered Sig/Evaristo Route PRN Reason Start Time Stop Time Status Last Admin Dose Admin Acetaminophen (Tylenol) 650 mg PRN Q6HRS PRN PO MILD PAIN / TEMP > 100.3'F 11/25/20 18:00 12/26/20 06:17 Multi-Ingredient Ointment (Analgesic [place]) 1 addison PRN QID PRN TP MUSCLE PAIN 11/25/20 18:00 Al Hydroxide/Mg Hydroxide (Mylanta Plus Xs) 15 ml PRN AFTMEALHC PRN PO DYSPEPSIA 11/25/20 18:00 12/10/20 18:52 Magnesium Hydroxide (Milk Of Magnesia) 2,400 mg PRN QHS PRN PO CONSTIPATION 11/25/20 18:00 12/13/20 08:36 Amlodipine Besylate (Norvasc) 10 mg DAILY PO 11/26/20 09:00 01/03/21 08:23 Aspirin (Aspirin Chewable) 81 mg DAILY PO 11/26/20 09:00 01/03/21 08:23 Carvedilol (Coreg) 6.25 mg BIDWMEALS PO 11/25/20 18:30 01/03/21 17:00 Lisinopril (Prinivil) 10 mg DAILY PO 11/26/20 09:00 11/26/20 16:16 DC Quetiapine Fumarate (SEROquel) 25 mg QHS PO 11/25/20 21:00 12/23/20 17:23 DC 12/22/20 20:04 Tamsulosin HCl (Flomax) 0.4 mg DAILY PO 11/26/20 09:00 01/03/21 08:23 Amoxicillin (Amoxil) 500 mg [id number] PO 11/25/20 21:00 12/02/20 14:01 DC 12/02/20 14:15 Atorvastatin Calcium (Lipitor) 40 mg QHS PO 11/25/20 21:00 01/03/21 20:00 Folic Acid (Folic Acid) 1 mg DAILY PO 11/26/20 09:00 01/03/21 08:23 Lidocaine (Lidoderm) 1 patch DAILY TD 11/26/20 09:00 01/03/21 08:24 Multivitamins/ Calcium (Thera-M Plus) 1 tab DAILY PO 11/26/20 09:00 01/03/21 08:23 Thiamine HCl (Vitamin B-1) 100 mg BID PO 11/25/20 21:00 01/03/21 20:01 Olanzapine (ZyPREXA ZYDIS) 2.5 mg PRN Q2HR PRN PO PSYCHOSIS 11/25/20 21:15 01/03/21 17:09 Trazodone HCl (Desyrel) 50 mg PRN QHS PRN PO INSOMNIA, MAY REPEAT IN 1HR 11/25/20 21:15 01/03/21 16:48 DC 01/03/21 02:21 Mirtazapine (Remeron) 7.5 mg QHS PO 11/26/20 21:00 11/28/20 12:23 DC 11/27/20 20:00 Lactobacillus Rhamnosus (Culturelle) 1 cap BID PO 11/27/20 09:00 01/03/21 20:02 Sertraline HCl (Zoloft) 25 mg DAILY PO 11/28/20 09:00 11/30/20 09:01 DC 11/30/20 08:39 Sertraline HCl (Zoloft) 50 mg DAILY PO 12/01/20 09:00 12/03/20 11:00 DC 12/03/20 08:05 Mirtazapine (Remeron) 15 mg QHS PO 11/28/20 21:00 11/29/20 18:47 DC 11/28/20 19:38 Hydroxyzine HCl (Atarax) 25 mg PRN Q2HR PRN PO ABDOMINAL CRAMPS 11/28/20 21:45 12/29/20 00:54 Lorazepam (Ativan) 0.5 mg PRN Q4HRS PRN PO ANXIETY / AGITATION 11/28/20 21:45 11/29/20 21:45 DC Amitriptyline HCl (Elavil) 25 mg QHS PO 11/29/20 21:00 12/23/20 17:23 DC 12/22/20 20:04 Melatonin (Melatonin) 3 mg QHS PO 11/29/20 21:00 01/03/21 20:01 Sertraline HCl (Zoloft) 75 mg DAILY PO 12/04/20 09:00 01/03/21 08:23 Divalproex Sodium (Depakote Er) 500 mg QHS PO 12/02/20 21:00 12/05/20 12:29 DC 12/04/20 20:08 Divalproex Sodium (Depakote Er) 1,000 mg QHS PO 12/05/20 21:00 01/03/21 20:01 Quetiapine Fumarate (SEROquel) 12.5 mg DAILY PO 12/17/20 09:00 12/18/20 16:46 DC 12/18/20 08:01 Quetiapine Fumarate (SEROquel) 12.5 mg [id number] PO 12/19/20 09:00 12/23/20 17:23 DC 12/23/20 13:28 Quetiapine Fumarate (SEROquel) 25 mg TID PO 12/23/20 17:30 01/03/21 20:01 Amitriptyline HCl (Elavil) 50 mg QHS PO 12/23/20 21:00 01/03/21 20:01 Furosemide (Lasix) 80 mg 1X ONCE PO 12/30/20 16:30 12/30/20 16:31 DC 12/30/20 16:27 Trazodone HCl (Desyrel) 100 mg QHS PO 01/03/21 21:00 01/03/21 20:01 Trazodone HCl (Desyrel) 100 mg PRN QHS PRN PO INSOMNIA, 01/03/21 17:00 Current Medications Medications (Trade) Dose Ordered Sig/Evaristo Route PRN Reason Start Time Stop Time Status Last Admin Dose Admin Trazodone HCl (Desyrel) 100 mg QHS PO 01/03/21 21:00 01/03/21 20:01 I have reviewed the current psychotropics carefully including drug interactions. Risk benefit ratio favors no change other than as noted in my dictated progress note. Diagnosis: Problems: (1) Major neurocognitive disorder (2) Impulse control disorder, unspecified (3) Anxiety disorder, unspecified (4) Dementia, vascular, with depression (5) Dementia, vascular, with delusions (6) Dementia in Alzheimer's disease with depression (7) Dementia in Alzheimer's disease with delusions (8) Dementia of the Alzheimer's type with early onset with behavioral disturbance DONA BOTELLO MD Jan 03, 2021 20:56
[2021-01-03] MEDS: hydrOXYzine HCL 25 MG TABLET PO PRN (21:42)
[2021-01-03] MEDS: traZODone 100 MG TABLET. PO PRN (21:42)
--- NOTE | 2021-01-04 00:07 | NUR ---
Nursing Note Pt wanders the unit intrusive and confused, thinks he is working. Wanders the sarkar with his peer, trying to find his truck keys, can't seem to remember where he parked the truck. Difficult to redirect, speech is repetitive and rambling. Tc given 2129. Pt eventually "Clocked out" from work and went to his room to get ready for bed. Resting well now.
[2021-01-04 05:58] VITALS: BP 145/81
[2021-01-04] MEDS: THIAMINE 100 MG TABLET. PO SCH ×2 (08:10→20:31)
[2021-01-04] MEDS: FOLIC ACID 1 MG TABLET PO SCH (08:11)
[2021-01-04] MEDS: CARVEDILOL 6.25 MG TABLET PO SCH ×2 (08:11→17:43)
[2021-01-04] MEDS: SERTRALINE 25 MG TABLET. PO SCH (08:11)
[2021-01-04] MEDS: MULTIVITAMIN with MINERAL TABLET. PO SCH (08:11)
[2021-01-04] MEDS: amLODIPine BESYLATE 10 MG TABLET PO SCH (08:11)
[2021-01-04] MEDS: QUEtiapine 25 MG TABLET. PO SCH ×3 (08:11→20:31)
[2021-01-04] MEDS: ASPIRIN CHEWABLE 81 MG TABLET. PO SCH (08:11)
[2021-01-04] MEDS: LACTOBACILLUS RHAMNOSUS GG 1 CAPSULE. PO SCH ×2 (08:12→20:32)
[2021-01-04] MEDS: LIDOCAINE (700MG/PATCH) PATCH. TD SCH (08:12)
[2021-01-04] MEDS: TAMSULOSIN 0.4 MG CAP.ER.24H. PO SCH (08:12)
--- NOTE | 2021-01-04 08:31 | PDOC ---
Exam Note: Gus Note: This note is a late entry for 01/03/2021 covers elements not covered in my initial note. Subjective: The patient was seen on telehealth rounds in the evening of 01/03/2021 with Addis OVIEDO, discussed and reviewed the chart. The patient slept 2- 1/2 hours previous night. He remains confused, exit seeking, feels he has to go to work. Review of Systems: No CV, , pulmonary, eye, ENT system symptoms on review. Mental Status Exam: The patient is oriented to himself. Insight and judgment, recent and remote memory, attention and concentration, fund of knowledge is poor consistent with his diagnosis. No suicidal or homicidal ideation. Laboratory Data: Reviewed. Impression: Major neurocognitive disorder Alzheimer vascular with delusion, depression, behavioral disturbance. Anxiety disorder unspecified. Impulse co ntrol disorder unspecified. Plan: No change from initial note. The patient has been getting trazodone p.r.n. every night. We will change it to scheduled 100 mg h.s. We may repeat x1 p.r.n. insomnia. Continue rest psychotropics unchanged. Assessment: Vital Signs/I&O: Vital Signs Date Time Temp Pulse Resp B/P (MAP) Pulse Ox O2 Delivery O2 Flow Rate FiO2 01/04/21 08:11 73 145/81 01/04/21 05:58 97.0 18 97 01/01/21 16:04 Room Air I & O 01/03/21 01/03/21 01/04/21 15:00 23:00 07:00 Intake Total 720 ml 480 ml Balance 720 ml 480 ml Current Medications: Meds: Current Medications Medications (Trade) Dose Ordered Sig/Evaristo Route PRN Reason Start Time Stop Time Status Last Admin Dose Admin Acetaminophen (Tylenol) 650 mg PRN Q6HRS PRN PO MILD PAIN / TEMP > 100.3'F 11/25/20 18:00 12/26/20 06:17 Multi-Ingredient Ointment (Analgesic [place]) 1 addison PRN QID PRN TP MUSCLE PAIN 11/25/20 18:00 Al Hydroxide/Mg Hydroxide (Mylanta Plus Xs) 15 ml PRN AFTMEALHC PRN PO DYSPEPSIA 11/25/20 18:00 12/10/20 18:52 Magnesium Hydroxide (Milk Of Magnesia) 2,400 mg PRN QHS PRN PO CONSTIPATION 11/25/20 18:00 12/13/20 08:36 Amlodipine Besylate (Norvasc) 10 mg DAILY PO 11/26/20 09:00 01/04/21 08:11 Aspirin (Aspirin Chewable) 81 mg DAILY PO 11/26/20 09:00 01/04/21 08:11 Carvedilol (Coreg) 6.25 mg BIDWMEALS PO 11/25/20 18:30 01/04/21 08:11 Lisinopril (Prinivil) 10 mg DAILY PO 11/26/20 09:00 11/26/20 16:16 DC Quetiapine Fumarate (SEROquel) 25 mg QHS PO 11/25/20 21:00 12/23/20 17:23 DC 12/22/20 20:04 Tamsulosin HCl (Flomax) 0.4 mg DAILY PO 11/26/20 09:00 01/04/21 08:12 Amoxicillin (Amoxil) 500 mg [id number] PO 11/25/20 21:00 12/02/20 14:01 DC 12/02/20 14:15 Atorvastatin Calcium (Lipitor) 40 mg QHS PO 11/25/20 21:00 01/03/21 20:00 Folic Acid (Folic Acid) 1 mg DAILY PO 11/26/20 09:00 01/04/21 08:11 Lidocaine (Lidoderm) 1 patch DAILY TD 11/26/20 09:00 01/04/21 08:12 Multivitamins/ Calcium (Thera-M Plus) 1 tab DAILY PO 11/26/20 09:00 01/04/21 08:11 Thiamine HCl (Vitamin B-1) 100 mg BID PO 11/25/20 21:00 01/04/21 08:10 Olanzapine (ZyPREXA ZYDIS) 2.5 mg PRN Q2HR PRN PO PSYCHOSIS 11/25/20 21:15 01/03/21 17:09 Trazodone HCl (Desyrel) 50 mg PRN QHS PRN PO INSOMNIA, MAY REPEAT IN 1HR 11/25/20 21:15 01/03/21 16:48 DC 01/03/21 02:21 Mirtazapine (Remeron) 7.5 mg QHS PO 11/26/20 21:00 11/28/20 12:23 DC 11/27/20 20:00 Lactobacillus Rhamnosus (Culturelle) 1 cap BID PO 11/27/20 09:00 01/04/21 08:12 Sertraline HCl (Zoloft) 25 mg DAILY PO 11/28/20 09:00 11/30/20 09:01 DC 11/30/20 08:39 Sertraline HCl (Zoloft) 50 mg DAILY PO 12/01/20 09:00 12/03/20 11:00 DC 12/03/20 08:05 Mirtazapine (Remeron) 15 mg QHS PO 11/28/20 21:00 11/29/20 18:47 DC 11/28/20 19:38 Hydroxyzine HCl (Atarax) 25 mg PRN Q2HR PRN PO ABDOMINAL CRAMPS 11/28/20 21:45 01/03/21 21:42 Lorazepam (Ativan) 0.5 mg PRN Q4HRS PRN PO ANXIETY / AGITATION 11/28/20 21:45 11/29/20 21:45 DC Amitriptyline HCl (Elavil) 25 mg QHS PO 11/29/20 21:00 12/23/20 17:23 DC 12/22/20 20:04 Melatonin (Melatonin) 3 mg QHS PO 11/29/20 21:00 01/03/21 20:01 Sertraline HCl (Zoloft) 75 mg DAILY PO 12/04/20 09:00 01/04/21 08:11 Divalproex Sodium (Depakote Er) 500 mg QHS PO 12/02/20 21:00 12/05/20 12:29 DC 12/04/20 20:08 Divalproex Sodium (Depakote Er) 1,000 mg QHS PO 12/05/20 21:00 01/03/21 20:01 Quetiapine Fumarate (SEROquel) 12.5 mg DAILY PO 12/17/20 09:00 12/18/20 16:46 DC 12/18/20 08:01 Quetiapine Fumarate (SEROquel) 12.5 mg [id number] PO 12/19/20 09:00 12/23/20 17:23 DC 12/23/20 13:28 Quetiapine Fumarate (SEROquel) 25 mg TID PO 12/23/20 17:30 01/04/21 08:11 Amitriptyline HCl (Elavil) 50 mg QHS PO 12/23/20 21:00 01/03/21 20:01 Furosemide (Lasix) 80 mg 1X ONCE PO 12/30/20 16:30 12/30/20 16:31 DC 12/30/20 16:27 Trazodone HCl (Desyrel) 100 mg QHS PO 01/03/21 21:00 01/03/21 20:01 Trazodone HCl (Desyrel) 100 mg PRN QHS PRN PO INSOMNIA, 01/03/21 17:00 01/03/21 21:42 Current Medications Medications (Trade) Dose Ordered Sig/Evaristo Route PRN Reason Start Time Stop Time Status Last Admin Dose Admin Trazodone HCl (Desyrel) 100 mg QHS PO 01/03/21 21:00 01/03/21 20:01 Trazodone HCl (Desyrel) 100 mg PRN QHS PRN PO INSOMNIA, 01/03/21 17:00 01/03/21 21:42 I have reviewed the current psychotropics carefully including drug interactions. Risk benefit ratio favors no change other than as noted in my dictated progress note. Diagnosis: Problems: (1) Major neurocognitive disorder (2) Impulse control disorder, unspecified (3) Anxiety disorder, unspecified (4) Dementia, vascular, with depression (5) Dementia, vascular, with delusions (6) Dementia in Alzheimer's disease with depression (7) Dementia in Alzheimer's disease with delusions (8) Dementia of the Alzheimer's type with early onset with behavioral disturbance DONA BOTELLO MD Jan 04, 2021 08:31
--- NOTE | 2021-01-04 09:50 | NUR ---
MARY received a call from Vincent at [facility]. They cannot accept pt as they currently have an all female dementia unit with no ability to accommodate for a male bed. Vincent recommended following up with [facility]; although, they are an AL facility, they do have locked units and wonders if they could handle pt there. Vincent also recommended [facility], as they have a locked unit as well. MARY will send off those referrals.
[2021-01-04 16:12] VITALS: BP 161/88
--- NOTE | 2021-01-04 17:40 | NUR ---
Nursing note: Pt has been wandering around the unit for most of the shift. Pt was intrusive this AM, wandering into a female pt's room. He became more agitated and resisted redirection. He was escorted [facility]. Pt was able to calm down on his own after a short time and was allowed to go back to his room for lunch. Pt has been much less intrusive this afternoon. Will continue to monitor.
[2021-01-04] MEDS: AMITRIPTYLINE HCL 50 MG TABLET PO SCH (20:31)
[2021-01-04] MEDS: traZODone 100 MG TABLET. PO SCH (20:31)
[2021-01-04] MEDS: MELATONIN 3 MG TABLET PO SCH (20:31)
[2021-01-04] MEDS: ATORVASTATIN CALCIUM 20 MG TABLET PO SCH (20:32)
[2021-01-04] MEDS: DIVALPROEX ER 500 MG TAB.ER.24H PO SCH (20:32)
--- NOTE | 2021-01-04 21:01 | PDOC ---
Exam Note: Gus Note: Please also refer to the separate dictated note~for this date of service dictated separately.~Patient seen individually. Discussed the patient with Nursing staff reviewed the chart.~Reviewed interim history and current functioning. Reviewed vital signs,~Labs/ Radiology~and current medications noted below. Continue current treatment with the changes noted in the dictated addendum note Assessment: Vital Signs/I&O: Vital Signs Date Time Temp Pulse Resp B/P (MAP) Pulse Ox O2 Delivery O2 Flow Rate FiO2 01/04/21 17:43 75 161/88 01/04/21 16:12 97.4 18 97 01/01/21 16:04 Room Air I & O 01/03/21 01/03/21 01/04/21 15:00 23:00 07:00 Intake Total 720 ml 480 ml Balance 720 ml 480 ml Current Medications: Meds: Current Medications Medications (Trade) Dose Ordered Sig/Evaristo Route PRN Reason Start Time Stop Time Status Last Admin Dose Admin Acetaminophen (Tylenol) 650 mg PRN Q6HRS PRN PO MILD PAIN / TEMP > 100.3'F 11/25/20 18:00 12/26/20 06:17 Multi-Ingredient Ointment (Analgesic [place]) 1 addison PRN QID PRN TP MUSCLE PAIN 11/25/20 18:00 Al Hydroxide/Mg Hydroxide (Mylanta Plus Xs) 15 ml PRN AFTMEALHC PRN PO DYSPEPSIA 11/25/20 18:00 12/10/20 18:52 Magnesium Hydroxide (Milk Of Magnesia) 2,400 mg PRN QHS PRN PO CONSTIPATION 11/25/20 18:00 12/13/20 08:36 Amlodipine Besylate (Norvasc) 10 mg DAILY PO 11/26/20 09:00 01/04/21 08:11 Aspirin (Aspirin Chewable) 81 mg DAILY PO 11/26/20 09:00 01/04/21 08:11 Carvedilol (Coreg) 6.25 mg BIDWMEALS PO 11/25/20 18:30 01/04/21 17:43 Lisinopril (Prinivil) 10 mg DAILY PO 11/26/20 09:00 11/26/20 16:16 DC Quetiapine Fumarate (SEROquel) 25 mg QHS PO 11/25/20 21:00 12/23/20 17:23 DC 12/22/20 20:04 Tamsulosin HCl (Flomax) 0.4 mg DAILY PO 11/26/20 09:00 01/04/21 08:12 Amoxicillin (Amoxil) 500 mg [id number] PO 11/25/20 21:00 12/02/20 14:01 DC 12/02/20 14:15 Atorvastatin Calcium (Lipitor) 40 mg QHS PO 11/25/20 21:00 01/04/21 20:32 Folic Acid (Folic Acid) 1 mg DAILY PO 11/26/20 09:00 01/04/21 08:11 Lidocaine (Lidoderm) 1 patch DAILY TD 11/26/20 09:00 01/04/21 08:12 Multivitamins/ Calcium (Thera-M Plus) 1 tab DAILY PO 11/26/20 09:00 01/04/21 08:11 Thiamine HCl (Vitamin B-1) 100 mg BID PO 11/25/20 21:00 01/04/21 20:31 Olanzapine (ZyPREXA ZYDIS) 2.5 mg PRN Q2HR PRN PO PSYCHOSIS 11/25/20 21:15 01/03/21 17:09 Trazodone HCl (Desyrel) 50 mg PRN QHS PRN PO INSOMNIA, MAY REPEAT IN 1HR 11/25/20 21:15 01/03/21 16:48 DC 01/03/21 02:21 Mirtazapine (Remeron) 7.5 mg QHS PO 11/26/20 21:00 11/28/20 12:23 DC 11/27/20 20:00 Lactobacillus Rhamnosus (Culturelle) 1 cap BID PO 11/27/20 09:00 01/04/21 20:32 Sertraline HCl (Zoloft) 25 mg DAILY PO 11/28/20 09:00 11/30/20 09:01 DC 11/30/20 08:39 Sertraline HCl (Zoloft) 50 mg DAILY PO 12/01/20 09:00 12/03/20 11:00 DC 12/03/20 08:05 Mirtazapine (Remeron) 15 mg QHS PO 11/28/20 21:00 11/29/20 18:47 DC 11/28/20 19:38 Hydroxyzine HCl (Atarax) 25 mg PRN Q2HR PRN PO ABDOMINAL CRAMPS 11/28/20 21:45 01/03/21 21:42 Lorazepam (Ativan) 0.5 mg PRN Q4HRS PRN PO ANXIETY / AGITATION 11/28/20 21:45 11/29/20 21:45 DC Amitriptyline HCl (Elavil) 25 mg QHS PO 11/29/20 21:00 12/23/20 17:23 DC 12/22/20 20:04 Melatonin (Melatonin) 3 mg QHS PO 11/29/20 21:00 01/04/21 20:31 Sertraline HCl (Zoloft) 75 mg DAILY PO 12/04/20 09:00 01/04/21 08:11 Divalproex Sodium (Depakote Er) 500 mg QHS PO 12/02/20 21:00 12/05/20 12:29 DC 12/04/20 20:08 Divalproex Sodium (Depakote Er) 1,000 mg QHS PO 12/05/20 21:00 01/04/21 20:32 Quetiapine Fumarate (SEROquel) 12.5 mg DAILY PO 12/17/20 09:00 12/18/20 16:46 DC 12/18/20 08:01 Quetiapine Fumarate (SEROquel) 12.5 mg [id number] PO 12/19/20 09:00 12/23/20 17:23 DC 12/23/20 13:28 Quetiapine Fumarate (SEROquel) 25 mg TID PO 12/23/20 17:30 01/04/21 20:31 Amitriptyline HCl (Elavil) 50 mg QHS PO 12/23/20 21:00 01/04/21 20:31 Furosemide (Lasix) 80 mg 1X ONCE PO 12/30/20 16:30 12/30/20 16:31 DC 12/30/20 16:27 Trazodone HCl (Desyrel) 100 mg QHS PO 01/03/21 21:00 01/04/21 20:31 Trazodone HCl (Desyrel) 100 mg PRN QHS PRN PO INSOMNIA, 01/03/21 17:00 01/03/21 21:42 I have reviewed the current psychotropics carefully including drug interactions. Risk benefit ratio favors no change other than as noted in my dictated progress note. Diagnosis: Problems: (1) Major neurocognitive disorder (2) Impulse control disorder, unspecified (3) Anxiety disorder, unspecified (4) Dementia, vascular, with depression (5) Dementia, vascular, with delusions (6) Dementia in Alzheimer's disease with depression (7) Dementia in Alzheimer's disease with delusions (8) Dementia of the Alzheimer's type with early onset with behavioral disturbance DONA BOTELLO MD Jan 04, 2021 21:01
--- NOTE | 2021-01-04 23:45 | NUR ---
Pt wandering the unit this evening, conversing with peers. Pt calm and interactive. Compliant with whole medications.
[2021-01-05 05:33] VITALS: BP 139/68
--- NOTE | 2021-01-05 08:03 | PDOC ---
Exam Note: Gus Note: This note is a late entry for 01/04/2021 covers elements not covered in my initial note. Subjective: The patient was seen face to face in the evening of 01/04/2021 with Radha OVIEDO, discussed and reviewed the chart. The patient slept 4-1/4 hours previous night. He remains confused, somewhat intrusive, getting into the room of other patients, redirects. Review of Systems: No CV, , pulmonary, eye, ENT system symptoms on review. Mental Status Exam: The patient is oriented to himself. I met with him individually. Insight and judgment, recent and remote memory, attention and concentration, fund of knowledge is poor consistent with his diagnosis. No suicidal or homicidal ideation. Laboratory Data: Reviewed. Impression: Major neurocognitive disorder Alzheimer vascular with delusion, depression, behavioral disturbance. Anxiety disorder unspecified. Impulse control disorder unspecified. Plan: No change from initial note. Assessment: Vital Signs/I&O: Vital Signs Date Time Temp Pulse Resp B/P (MAP) Pulse Ox O2 Delivery O2 Flow Rate FiO2 01/05/21 05:33 97.8 62 20 139/68 (91) 97 01/01/21 16:04 Room Air I & O 01/04/21 01/04/21 01/05/21 14:59 22:59 06:59 Intake Total 300 ml 360 ml Balance 300 ml 360 ml Current Medications: Meds: Current Medications Medications (Trade) Dose Ordered Sig/Evaristo Route PRN Reason Start Time Stop Time Status Last Admin Dose Admin Acetaminophen (Tylenol) 650 mg PRN Q6HRS PRN PO MILD PAIN / TEMP > 100.3'F 11/25/20 18:00 12/26/20 06:17 Multi-Ingredient Ointment (Analgesic [place]) 1 addison PRN QID PRN TP MUSCLE PAIN 11/25/20 18:00 Al Hydroxide/Mg Hydroxide (Mylanta Plus Xs) 15 ml PRN AFTMEALHC PRN PO DYSPEPSIA 11/25/20 18:00 12/10/20 18:52 Magnesium Hydroxide (Milk Of Magnesia) 2,400 mg PRN QHS PRN PO CONSTIPATION 11/25/20 18:00 12/13/20 08:36 Amlodipine Besylate (Norvasc) 10 mg DAILY PO 11/26/20 09:00 01/04/21 08:11 Aspirin (Aspirin Chewable) 81 mg DAILY PO 11/26/20 09:00 01/04/21 08:11 Carvedilol (Coreg) 6.25 mg BIDWMEALS PO 11/25/20 18:30 01/04/21 17:43 Lisinopril (Prinivil) 10 mg DAILY PO 11/26/20 09:00 11/26/20 16:16 DC Quetiapine Fumarate (SEROquel) 25 mg QHS PO 11/25/20 21:00 12/23/20 17:23 DC 12/22/20 20:04 Tamsulosin HCl (Flomax) 0.4 mg DAILY PO 11/26/20 09:00 01/04/21 08:12 Amoxicillin (Amoxil) 500 mg [id number] PO 11/25/20 21:00 12/02/20 14:01 DC 12/02/20 14:15 Atorvastatin Calcium (Lipitor) 40 mg QHS PO 11/25/20 21:00 01/04/21 20:32 Folic Acid (Folic Acid) 1 mg DAILY PO 11/26/20 09:00 01/04/21 08:11 Lidocaine (Lidoderm) 1 patch DAILY TD 11/26/20 09:00 01/04/21 08:12 Multivitamins/ Calcium (Thera-M Plus) 1 tab DAILY PO 11/26/20 09:00 01/04/21 08:11 Thiamine HCl (Vitamin B-1) 100 mg BID PO 11/25/20 21:00 01/04/21 20:31 Olanzapine (ZyPREXA ZYDIS) 2.5 mg PRN Q2HR PRN PO PSYCHOSIS 11/25/20 21:15 01/03/21 17:09 Trazodone HCl (Desyrel) 50 mg PRN QHS PRN PO INSOMNIA, MAY REPEAT IN 1HR 11/25/20 21:15 01/03/21 16:48 DC 01/03/21 02:21 Mirtazapine (Remeron) 7.5 mg QHS PO 11/26/20 21:00 11/28/20 12:23 DC 11/27/20 20:00 Lactobacillus Rhamnosus (Culturelle) 1 cap BID PO 11/27/20 09:00 01/04/21 20:32 Sertraline HCl (Zoloft) 25 mg DAILY PO 11/28/20 09:00 11/30/20 09:01 DC 11/30/20 08:39 Sertraline HCl (Zoloft) 50 mg DAILY PO 12/01/20 09:00 12/03/20 11:00 DC 12/03/20 08:05 Mirtazapine (Remeron) 15 mg QHS PO 11/28/20 21:00 11/29/20 18:47 DC 11/28/20 19:38 Hydroxyzine HCl (Atarax) 25 mg PRN Q2HR PRN PO ABDOMINAL CRAMPS 11/28/20 21:45 01/03/21 21:42 Lorazepam (Ativan) 0.5 mg PRN Q4HRS PRN PO ANXIETY / AGITATION 11/28/20 21:45 11/29/20 21:45 DC Amitriptyline HCl (Elavil) 25 mg QHS PO 11/29/20 21:00 12/23/20 17:23 DC 12/22/20 20:04 Melatonin (Melatonin) 3 mg QHS PO 11/29/20 21:00 01/04/21 20:31 Sertraline HCl (Zoloft) 75 mg DAILY PO 12/04/20 09:00 01/04/21 08:11 Divalproex Sodium (Depakote Er) 500 mg QHS PO 12/02/20 21:00 12/05/20 12:29 DC 12/04/20 20:08 Divalproex Sodium (Depakote Er) 1,000 mg QHS PO 12/05/20 21:00 01/04/21 20:32 Quetiapine Fumarate (SEROquel) 12.5 mg DAILY PO 12/17/20 09:00 12/18/20 16:46 DC 12/18/20 08:01 Quetiapine Fumarate (SEROquel) 12.5 mg [id number] PO 12/19/20 09:00 12/23/20 17:23 DC 12/23/20 13:28 Quetiapine Fumarate (SEROquel) 25 mg TID PO 12/23/20 17:30 01/04/21 20:31 Amitriptyline HCl (Elavil) 50 mg QHS PO 12/23/20 21:00 01/04/21 20:31 Furosemide (Lasix) 80 mg 1X ONCE PO 12/30/20 16:30 12/30/20 16:31 DC 12/30/20 16:27 Trazodone HCl (Desyrel) 100 mg QHS PO 01/03/21 21:00 01/04/21 20:31 Trazodone HCl (Desyrel) 100 mg PRN QHS PRN PO INSOMNIA, 01/03/21 17:00 01/03/21 21:42 I have reviewed the current psychotropics carefully including drug interactions. Risk benefit ratio favors no change other than as noted in my dictated progress note. Diagnosis: Problems: (1) Major neurocognitive disorder (2) Impulse control disorder, unspecified (3) Anxiety disorder, unspecified (4) Dementia, vascular, with depression (5) Dementia, vascular, with delusions (6) Dementia in Alzheimer's disease with depression (7) Dementia in Alzheimer's disease with delusions (8) Dementia of the Alzheimer's type with early onset with behavioral disturbance DONA BOTELLO MD Jan 05, 2021 08:03
[2021-01-05] MEDS: LACTOBACILLUS RHAMNOSUS GG 1 CAPSULE. PO SCH ×2 (08:14→20:18)
[2021-01-05] MEDS: MULTIVITAMIN with MINERAL TABLET. PO SCH (08:14)
[2021-01-05] MEDS: SERTRALINE 25 MG TABLET. PO SCH (08:14)
[2021-01-05] MEDS: THIAMINE 100 MG TABLET. PO SCH ×2 (08:14→20:18)
[2021-01-05] MEDS: TAMSULOSIN 0.4 MG CAP.ER.24H. PO SCH (08:14)
[2021-01-05] MEDS: ASPIRIN CHEWABLE 81 MG TABLET. PO SCH (08:14)
[2021-01-05] MEDS: QUEtiapine 25 MG TABLET. PO SCH ×3 (08:14→20:18)
[2021-01-05] MEDS: CARVEDILOL 6.25 MG TABLET PO SCH ×2 (08:14→17:00)
[2021-01-05] MEDS: LIDOCAINE (700MG/PATCH) PATCH. TD SCH (08:15)
[2021-01-05] MEDS: FOLIC ACID 1 MG TABLET PO SCH (08:15)
[2021-01-05] MEDS: amLODIPine BESYLATE 10 MG TABLET PO SCH (08:15)
[2021-01-05 16:02] VITALS: BP 154/76
--- NOTE | 2021-01-05 18:02 | NUR ---
Patient cooperative and takes medications with no problems whole. No complaints. Patient is confused and forgetful he is alert but not oriented. He thinks he is at work and gets upset when we won't let him out. He continues to be exit seeking. The patient in the room next to him is getting close to him and holding is hand stating she knows him. They had to be seperated a couple of times today and he did get frustrated and had to be put in the [facility] just to calm down. He did not need any medications. He did also talk about his girlfriend/ today. No further concerns at this time.
[2021-01-05] MEDS: AMITRIPTYLINE HCL 50 MG TABLET PO SCH (20:17)
[2021-01-05] MEDS: ATORVASTATIN CALCIUM 20 MG TABLET PO SCH (20:18)
[2021-01-05] MEDS: MELATONIN 3 MG TABLET PO SCH (20:18)
[2021-01-05] MEDS: traZODone 100 MG TABLET. PO SCH (20:18)
[2021-01-05] MEDS: DIVALPROEX ER 500 MG TAB.ER.24H PO SCH (20:18)
--- NOTE | 2021-01-05 21:04 | PDOC ---
Exam Note: Gus Note: Please also refer to the separate dictated note~for this date of service dictated separately.~Patient seen individually. Discussed the patient with Nursing staff reviewed the chart.~Reviewed interim history and current functioning. Reviewed vital signs,~Labs/ Radiology~and current medications noted below. Continue current treatment with the changes noted in the dictated addendum note Assessment: Vital Signs/I&O: Vital Signs Date Time Temp Pulse Resp B/P (MAP) Pulse Ox O2 Delivery O2 Flow Rate FiO2 01/05/21 17:00 82 154/76 01/05/21 16:02 97.2 20 92 Room Air I & O 01/04/21 01/04/21 01/05/21 15:00 23:00 07:00 Intake Total 300 ml 360 ml Balance 300 ml 360 ml Current Medications: Meds: Current Medications Medications (Trade) Dose Ordered Sig/Evaristo Route PRN Reason Start Time Stop Time Status Last Admin Dose Admin Acetaminophen (Tylenol) 650 mg PRN Q6HRS PRN PO MILD PAIN / TEMP > 100.3'F 11/25/20 18:00 12/26/20 06:17 Multi-Ingredient Ointment (Analgesic [place]) 1 addison PRN QID PRN TP MUSCLE PAIN 11/25/20 18:00 Al Hydroxide/Mg Hydroxide (Mylanta Plus Xs) 15 ml PRN AFTMEALHC PRN PO DYSPEPSIA 11/25/20 18:00 12/10/20 18:52 Magnesium Hydroxide (Milk Of Magnesia) 2,400 mg PRN QHS PRN PO CONSTIPATION 11/25/20 18:00 12/13/20 08:36 Amlodipine Besylate (Norvasc) 10 mg DAILY PO 11/26/20 09:00 01/05/21 08:15 Aspirin (Aspirin Chewable) 81 mg DAILY PO 11/26/20 09:00 01/05/21 08:14 Carvedilol (Coreg) 6.25 mg BIDWMEALS PO 11/25/20 18:30 01/05/21 17:00 Lisinopril (Prinivil) 10 mg DAILY PO 11/26/20 09:00 11/26/20 16:16 DC Quetiapine Fumarate (SEROquel) 25 mg QHS PO 11/25/20 21:00 12/23/20 17:23 DC 12/22/20 20:04 Tamsulosin HCl (Flomax) 0.4 mg DAILY PO 11/26/20 09:00 01/05/21 08:14 Amoxicillin (Amoxil) 500 mg [id number] PO 11/25/20 21:00 12/02/20 14:01 DC 12/02/20 14:15 Atorvastatin Calcium (Lipitor) 40 mg QHS PO 11/25/20 21:00 01/05/21 20:18 Folic Acid (Folic Acid) 1 mg DAILY PO 11/26/20 09:00 01/05/21 08:15 Lidocaine (Lidoderm) 1 patch DAILY TD 11/26/20 09:00 01/05/21 08:15 Multivitamins/ Calcium (Thera-M Plus) 1 tab DAILY PO 11/26/20 09:00 01/05/21 08:14 Thiamine HCl (Vitamin B-1) 100 mg BID PO 11/25/20 21:00 01/05/21 20:18 Olanzapine (ZyPREXA ZYDIS) 2.5 mg PRN Q2HR PRN PO PSYCHOSIS 11/25/20 21:15 01/05/21 13:45 Trazodone HCl (Desyrel) 50 mg PRN QHS PRN PO INSOMNIA, MAY REPEAT IN 1HR 11/25/20 21:15 01/03/21 16:48 DC 01/03/21 02:21 Mirtazapine (Remeron) 7.5 mg QHS PO 11/26/20 21:00 11/28/20 12:23 DC 11/27/20 20:00 Lactobacillus Rhamnosus (Culturelle) 1 cap BID PO 11/27/20 09:00 01/05/21 20:18 Sertraline HCl (Zoloft) 25 mg DAILY PO 11/28/20 09:00 11/30/20 09:01 DC 11/30/20 08:39 Sertraline HCl (Zoloft) 50 mg DAILY PO 12/01/20 09:00 12/03/20 11:00 DC 12/03/20 08:05 Mirtazapine (Remeron) 15 mg QHS PO 11/28/20 21:00 11/29/20 18:47 DC 11/28/20 19:38 Hydroxyzine HCl (Atarax) 25 mg PRN Q2HR PRN PO ABDOMINAL CRAMPS 11/28/20 21:45 01/03/21 21:42 Lorazepam (Ativan) 0.5 mg PRN Q4HRS PRN PO ANXIETY / AGITATION 11/28/20 21:45 11/29/20 21:45 DC Amitriptyline HCl (Elavil) 25 mg QHS PO 11/29/20 21:00 12/23/20 17:23 DC 12/22/20 20:04 Melatonin (Melatonin) 3 mg QHS PO 11/29/20 21:00 01/05/21 20:18 Sertraline HCl (Zoloft) 75 mg DAILY PO 12/04/20 09:00 01/05/21 08:14 Divalproex Sodium (Depakote Er) 500 mg QHS PO 12/02/20 21:00 12/05/20 12:29 DC 12/04/20 20:08 Divalproex Sodium (Depakote Er) 1,000 mg QHS PO 12/05/20 21:00 01/05/21 20:18 Quetiapine Fumarate (SEROquel) 12.5 mg DAILY PO 12/17/20 09:00 12/18/20 16:46 DC 12/18/20 08:01 Quetiapine Fumarate (SEROquel) 12.5 mg [id number] PO 12/19/20 09:00 12/23/20 17:23 DC 12/23/20 13:28 Quetiapine Fumarate (SEROquel) 25 mg TID PO 12/23/20 17:30 01/05/21 20:18 Amitriptyline HCl (Elavil) 50 mg QHS PO 12/23/20 21:00 01/05/21 20:17 Furosemide (Lasix) 80 mg 1X ONCE PO 12/30/20 16:30 12/30/20 16:31 DC 12/30/20 16:27 Trazodone HCl (Desyrel) 100 mg QHS PO 01/03/21 21:00 01/05/21 20:18 Trazodone HCl (Desyrel) 100 mg PRN QHS PRN PO INSOMNIA, 01/03/21 17:00 01/03/21 21:42 I have reviewed the current psychotropics carefully including drug interactions. Risk benefit ratio favors no change other than as noted in my dictated progress note. Diagnosis: Problems: (1) Major neurocognitive disorder (2) Impulse control disorder, unspecified (3) Anxiety disorder, unspecified (4) Dementia, vascular, with depression (5) Dementia, vascular, with delusions (6) Dementia in Alzheimer's disease with depression (7) Dementia in Alzheimer's disease with delusions (8) Dementia of the Alzheimer's type with early onset with behavioral disturbance DONA BOTELLO MD Jan 05, 2021 21:04
[2021-01-05] MEDS: traZODone 100 MG TABLET. PO PRN (22:11)
--- NOTE | 2021-01-05 22:56 | NUR ---
Pt wandering the unit this evening conversing with female peers. Pt compliant with whole medications. Pt continues to be disorganized, restless and intrusive. Pt becomes irritable with redirection. Pt delusional; stating he is at work and is in charge. PRN Zyprexa and Trazodone administered. Pt continued to wander the unit attempting to "work" for awhile before going to bed. Will continue to monitor.
[2021-01-06 05:50] VITALS: BP 138/80
[2021-01-06] MEDS: LIDOCAINE (700MG/PATCH) PATCH. TD SCH (09:00)
[2021-01-06] MEDS: ASPIRIN CHEWABLE 81 MG TABLET. PO SCH (09:49)
[2021-01-06] MEDS: amLODIPine BESYLATE 10 MG TABLET PO SCH (09:49)
[2021-01-06] MEDS: MULTIVITAMIN with MINERAL TABLET. PO SCH (09:49)
[2021-01-06] MEDS: THIAMINE 100 MG TABLET. PO SCH ×2 (09:49→19:46)
[2021-01-06] MEDS: SERTRALINE 25 MG TABLET. PO SCH (09:49)
[2021-01-06] MEDS: CARVEDILOL 6.25 MG TABLET PO SCH ×2 (09:50→17:00)
[2021-01-06] MEDS: TAMSULOSIN 0.4 MG CAP.ER.24H. PO SCH (09:50)
[2021-01-06] MEDS: FOLIC ACID 1 MG TABLET PO SCH (09:50)
[2021-01-06] MEDS: LACTOBACILLUS RHAMNOSUS GG 1 CAPSULE. PO SCH ×2 (09:50→19:46)
[2021-01-06] MEDS: QUEtiapine 25 MG TABLET. PO SCH ×3 (09:50→19:47)
--- NOTE | 2021-01-06 11:42 | NUR ---
Patient in room at time of assessment. Patient is calm and cooperative. He takes his medications whole with no problems. Patient has no complaints and there are no concerns at this time.
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
[2021-01-06 16:21] VITALS: BP 146/79
[2021-01-06] MEDS: hydrOXYzine HCL 25 MG TABLET PO PRN (19:46)
[2021-01-06] MEDS: AMITRIPTYLINE HCL 50 MG TABLET PO SCH (19:46)
[2021-01-06] MEDS: DIVALPROEX ER 500 MG TAB.ER.24H PO SCH (19:46)
[2021-01-06] MEDS: ATORVASTATIN CALCIUM 20 MG TABLET PO SCH (19:46)
[2021-01-06] MEDS: MELATONIN 3 MG TABLET PO SCH (19:46)
[2021-01-06] MEDS: traZODone 100 MG TABLET. PO SCH (19:48)
[2021-01-06] MEDS: traZODone 100 MG TABLET. PO PRN (21:38)
--- NOTE | 2021-01-06 21:54 | NUR ---
Nursing Note: Pt wandering in the hallway at shift change. Pt disorganized, confused, and delusional. Pt still believes that he works here and that "these rooms need to be cleaned. I need to get in there and get those bags". Staff attempted to re-direct pt several times without success. PRN Atarax administered with HS medications. Pt cooperative with assessment and compliant with medications administered whole. PRN repeat Trazodone administered @2137 as pt continues to wander and is restless.
[2021-01-07 05:28] VITALS: BP 150/84
[2021-01-07 07:49] LABS: BASO % 0 % (0-3); EOS # 0.1 x10^3/uL (0.0-0.7); EOS % 3 % (0-3); HEMATOCRIT 37.4 % (39.0-53.0); HEMOGLOBIN 12.6 g/dL (13.0-17.5); LYMPH # 1.2 x10^3/uL (1.0-4.8); LYMPH % 27 % (24-48); MEAN CORPUSCULAR HEMOGLOBIN 30 pg (25-35); MEAN CORPUSCULAR HGB CONC 34 g/dL (31-37); MEAN CORPUSCULAR VOLUME 89 fL (79-100); MONO # 0.6 x10^3/uL (0.0-1.1); MONO % 14 % (0-9); NEUT # 2.5 x10^3uL (1.8-7.7); NEUT % 56 % (31-73); PLATELET COUNT 220 x10^3/uL (140-400); RED BLOOD COUNT 4.18 x10^6/uL (4.30-5.70); RED CELL DISTRIBUTION WIDTH 13.9 % (11.5-14.5); WHITE BLOOD COUNT 4.5 x10^3/uL (4.0-11.0)
[2021-01-07 08:15] LABS: ALBUMIN 2.6 g/dL (3.4-5.0); ALBUMIN/GLOBULIN RATIO 0.8 (1.0-1.7); CALCIUM 8.3 mg/dL (8.5-10.1); CREATININE 0.8 mg/dL (0.7-1.3); GFR 92.5; POTASSIUM 3.6 mmol/L (3.5-5.1); TOTAL BILIRUBIN 0.4 mg/dL (0.2-1.0); TOTAL PROTEIN 5.8 g/dL (6.4-8.2)
[2021-01-07] MEDS: LIDOCAINE (700MG/PATCH) PATCH. TD SCH (09:00)
[2021-01-07] MEDS: CARVEDILOL 6.25 MG TABLET PO SCH ×2 (09:09→17:30)
[2021-01-07] MEDS: FOLIC ACID 1 MG TABLET PO SCH (09:10)
[2021-01-07] MEDS: ASPIRIN CHEWABLE 81 MG TABLET. PO SCH (09:10)
[2021-01-07] MEDS: amLODIPine BESYLATE 10 MG TABLET PO SCH (09:10)
[2021-01-07] MEDS: LACTOBACILLUS RHAMNOSUS GG 1 CAPSULE. PO SCH ×2 (09:10→20:15)
[2021-01-07] MEDS: TAMSULOSIN 0.4 MG CAP.ER.24H. PO SCH (09:10)
[2021-01-07] MEDS: THIAMINE 100 MG TABLET. PO SCH ×2 (09:11→20:15)
[2021-01-07] MEDS: SERTRALINE 25 MG TABLET. PO SCH (09:11)
[2021-01-07] MEDS: MULTIVITAMIN with MINERAL TABLET. PO SCH (09:11)
[2021-01-07] MEDS: QUEtiapine 25 MG TABLET. PO SCH ×3 (09:11→20:15)
--- NOTE | 2021-01-07 12:01 | NUR ---
Pt is calm, cooperative, compliant and confused. Pt is not agitated or aggressive. No hallucination. He is compliant with his medications and assessment.
[2021-01-07 15:47] VITALS: BP 130/75
[2021-01-07] MEDS: hydrOXYzine HCL 25 MG TABLET PO PRN (20:14)
[2021-01-07] MEDS: AMITRIPTYLINE HCL 50 MG TABLET PO SCH (20:15)
[2021-01-07] MEDS: traZODone 100 MG TABLET. PO SCH (20:15)
[2021-01-07] MEDS: DIVALPROEX ER 500 MG TAB.ER.24H PO SCH (20:15)
[2021-01-07] MEDS: MELATONIN 3 MG TABLET PO SCH (20:15)
[2021-01-07] MEDS: ATORVASTATIN CALCIUM 20 MG TABLET PO SCH (20:19)
[2021-01-07] MEDS: AMMONIUM LACTATE 12% TOPICAL LOTION 226GM BOTTLE. TP SCH (21:00)
--- NOTE | 2021-01-07 21:19 | PDOC ---
Exam Note: Gus Note: Late entry for 01/06/2021. Please also refer to the separate dictated note~for this date of service dictated separately.~Patient seen individually. Discussed the patient with Nursing staff reviewed the chart.~Reviewed interim history and current functioning. Reviewed vital signs,~Labs/ Radiology~and current medic ations noted below. Continue current treatment with the changes noted in the dictated addendum note Assessment: Vital Signs/I&O: Vital Signs Date Time Temp Pulse Resp B/P (MAP) Pulse Ox O2 Delivery O2 Flow Rate FiO2 01/07/21 17:30 72 130/75 01/07/21 15:47 97.9 16 96 01/07/21 05:28 Room Air I & O 01/06/21 01/06/21 01/07/21 15:00 23:00 07:00 Intake Total 840 ml 600 ml Balance 840 ml 600 ml Labs: Laboratory Tests Test 01/07/21 07:09 White Blood Count 4.5 x10^3/uL (4.0-11.0) Red Blood Count 4.18 x10^6/uL (4.30-5.70) L Hemoglobin 12.6 g/dL (13.0-17.5) L Hematocrit 37.4 % (39.0-53.0) L Mean Corpuscular Volume 89 fL (79-100) Mean Corpuscular Hemoglobin 30 pg (25-35) Mean Corpuscular Hemoglobin Concent 34 g/dL (31-37) Red Cell Distribution Width 13.9 % (11.5-14.5) Platelet Count 220 x10^3/uL (140-400) Neutrophils (%) (Auto) 56 % (31-73) Lymphocytes (%) (Auto) 27 % (24-48) Monocytes (%) (Auto) 14 % (0-9) H Eosinophils (%) (Auto) 3 % (0-3) Basophils (%) (Auto) 0 % (0-3) Neutrophils # (Auto) 2.5 x10^3uL (1.8-7.7) Lymphocytes # (Auto) 1.2 x10^3/uL (1.0-4.8) Monocytes # (Auto) 0.6 x10^3/uL (0.0-1.1) Eosinophils # (Auto) 0.1 x10^3/uL (0.0-0.7) Basophils # (Auto) 0.0 x10^3/uL (0.0-0.2) Sodium Level 142 mmol/L (136-145) Potassium Level 3.6 mmol/L (3.5-5.1) Chloride Level 107 mmol/L (98-107) Carbon Dioxide Level 30 mmol/L (21-32) Anion Gap 5 (6-14) L Blood Urea Nitrogen 19 mg/dL (8-26) Creatinine 0.8 mg/dL (0.7-1.3) Estimated GFR (Cockcroft-Gault) 92.5 BUN/Creatinine Ratio 24 (6-20) H Glucose Level 78 mg/dL (70-99) Calcium Level 8.3 mg/dL (8.5-10.1) L Total Bilirubin 0.4 mg/dL (0.2-1.0) Aspartate Amino Transferase (AST) 13 U/L (15-37) L Alanine Aminotransferase (ALT) 20 U/L (16-63) Alkaline Phosphatase 80 U/L (46-116) EE-Isk-Q-Type Natriuretic Peptide 143 pg/mL (0-449) Total Protein 5.8 g/dL (6.4-8.2) L Albumin 2.6 g/dL (3.4-5.0) L Albumin/Globulin Ratio 0.8 (1.0-1.7) L Current Medications: I have reviewed the current psychotropics carefully including drug interactions. Risk benefit ratio favors no change other than as noted in my dictated progress note. 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
--- NOTE | 2021-01-07 21:20 | PDOC ---
Exam Note: Gus Note: Please also refer to the separate dictated note~for this date of service dictated separately.~Patient seen individually. Discussed the patient with Nursing staff reviewed the chart.~Reviewed interim history and current functioning. Reviewed vital signs,~Labs/ Radiology~and current medications noted below. Continue current treatment with the changes noted in the dictated addendum note Assessment: Vital Signs/I&O: Vital Signs Date Time Temp Pulse Resp B/P (MAP) Pulse Ox O2 Delivery O2 Flow Rate FiO2 01/07/21 17:30 72 130/75 01/07/21 15:47 97.9 16 96 01/07/21 05:28 Room Air I & O 01/06/21 01/06/21 01/07/21 15:00 23:00 07:00 Intake Total 840 ml 600 ml Balance 840 ml 600 ml Labs: Laboratory Tests Test 01/07/21 07:09 White Blood Count 4.5 x10^3/uL (4.0-11.0) Red Blood Count 4.18 x10^6/uL (4.30-5.70) L Hemoglobin 12.6 g/dL (13.0-17.5) L Hematocrit 37.4 % (39.0-53.0) L Mean Corpuscular Volume 89 fL (79-100) Mean Corpuscular Hemoglobin 30 pg (25-35) Mean Corpuscular Hemoglobin Concent 34 g/dL (31-37) Red Cell Distribution Width 13.9 % (11.5-14.5) Platelet Count 220 x10^3/uL (140-400) Neutrophils (%) (Auto) 56 % (31-73) Lymphocytes (%) (Auto) 27 % (24-48) Monocytes (%) (Auto) 14 % (0-9) H Eosinophils (%) (Auto) 3 % (0-3) Basophils (%) (Auto) 0 % (0-3) Neutrophils # (Auto) 2.5 x10^3uL (1.8-7.7) Lymphocytes # (Auto) 1.2 x10^3/uL (1.0-4.8) Monocytes # (Auto) 0.6 x10^3/uL (0.0-1.1) Eosinophils # (Auto) 0.1 x10^3/uL (0.0-0.7) Basophils # (Auto) 0.0 x10^3/uL (0.0-0.2) Sodium Level 142 mmol/L (136-145) Potassium Level 3.6 mmol/L (3.5-5.1) Chloride Level 107 mmol/L (98-107) Carbon Dioxide Level 30 mmol/L (21-32) Anion Gap 5 (6-14) L Blood Urea Nitrogen 19 mg/dL (8-26) Creatinine 0.8 mg/dL (0.7-1.3) Estimated GFR (Cockcroft-Gault) 92.5 BUN/Creatinine Ratio 24 (6-20) H Glucose Level 78 mg/dL (70-99) Calcium Level 8.3 mg/dL (8.5-10.1) L Total Bilirubin 0.4 mg/dL (0.2-1.0) Aspartate Amino Transferase (AST) 13 U/L (15-37) L Alanine Aminotransferase (ALT) 20 U/L (16-63) Alkaline Phosphatase 80 U/L (46-116) KA-Ctp-G-Type Natriuretic Peptide 143 pg/mL (0-449) Total Protein 5.8 g/dL (6.4-8.2) L Albumin 2.6 g/dL (3.4-5.0) L Albumin/Globulin Ratio 0.8 (1.0-1.7) L Current Medications: I have reviewed the current psychotropics carefully including drug interactions. Risk benefit ratio favors no change other than as noted in my dictated progress note. Diagnosis: Problems: (1) Major neurocognitive disorder (2) Impulse control disorder, unspecified (3) Anxiety disorder, unspecified (4) Dementia, vascular, with depression (5) Dementia, vascular, with delusions (6) Dementia in Alzheimer's disease with depression (7) Dementia in Alzheimer's disease with delusions (8) Dementia of the Alzheimer's type with early onset with behavioral disturbance DONA BOTELLO MD Jan 07, 2021 21:20
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
[2021-01-08 06:25] VITALS: BP 154/83
[2021-01-08] MEDS: TAMSULOSIN 0.4 MG CAP.ER.24H. PO SCH (08:48)
[2021-01-08] MEDS: CARVEDILOL 6.25 MG TABLET PO SCH ×2 (08:48→17:36)
[2021-01-08] MEDS: FOLIC ACID 1 MG TABLET PO SCH (08:48)
[2021-01-08] MEDS: ASPIRIN CHEWABLE 81 MG TABLET. PO SCH (08:48)
[2021-01-08] MEDS: LACTOBACILLUS RHAMNOSUS GG 1 CAPSULE. PO SCH ×2 (08:48→20:08)
[2021-01-08] MEDS: QUEtiapine 25 MG TABLET. PO SCH ×3 (08:49→20:10)
[2021-01-08] MEDS: AMMONIUM LACTATE 12% TOPICAL LOTION 226GM BOTTLE. TP SCH ×2 (08:49→20:12)
[2021-01-08] MEDS: LIDOCAINE (700MG/PATCH) PATCH. TD SCH (08:49)
[2021-01-08] MEDS: MULTIVITAMIN with MINERAL TABLET. PO SCH (08:49)
[2021-01-08] MEDS: THIAMINE 100 MG TABLET. PO SCH ×2 (08:49→20:09)
[2021-01-08] MEDS: SERTRALINE 25 MG TABLET. PO SCH (08:49)
[2021-01-08] MEDS: amLODIPine BESYLATE 10 MG TABLET PO SCH (08:49)
--- NOTE | 2021-01-08 10:34 | NUR ---
No hallucinations. He is compliant with his medications and assessment. Pt is calm, cooperative, compliant and confused. Pt is not agitated or aggressive.
[2021-01-08] MEDS: hydrOXYzine HCL 25 MG TABLET PO PRN ×2 (15:07→20:09)
[2021-01-08 16:02] VITALS: BP 148/82
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
[2021-01-08] MEDS: ACETAMINOPHEN 325 MG TABLET PO PRN (17:35)
[2021-01-08] MEDS: AMITRIPTYLINE HCL 50 MG TABLET PO SCH (20:09)
[2021-01-08] MEDS: ATORVASTATIN CALCIUM 20 MG TABLET PO SCH (20:11)
[2021-01-08] MEDS: DIVALPROEX ER 500 MG TAB.ER.24H PO SCH (20:11)
[2021-01-08] MEDS: MELATONIN 3 MG TABLET PO SCH (20:12)
[2021-01-08] MEDS: traZODone 100 MG TABLET. PO SCH (20:12)
--- NOTE | 2021-01-08 20:54 | PDOC ---
Exam Note: Gus Note: Please also refer to the separate dictated note~for this date of service dictated separately.~Patient seen individually. Discussed the patient with Nursing staff reviewed the chart.~Reviewed interim history and current functioning. Reviewed vital signs,~Labs/ Radiology~and current medications noted below. Continue current treatment with the changes noted in the dictated addendum note Assessment: Vital Signs/I&O: Vital Signs Date Time Temp Pulse Resp B/P (MAP) Pulse Ox O2 Delivery O2 Flow Rate FiO2 01/08/21 17:36 78 148/82 01/08/21 16:02 97.0 20 99 01/07/21 05:28 Room Air I & O 01/07/21 01/07/21 01/08/21 15:00 23:00 07:00 Intake Total 600 ml 360 ml Balance 600 ml 360 ml Current Medications: Meds: Current Medications Medications (Trade) Dose Ordered Sig/Evaristo Route PRN Reason Start Time Stop Time Status Last Admin Dose Admin Lactic Acid (Lac-Hydrin) 1 addison BID TP 01/07/21 21:00 01/08/21 20:12 Quetiapine Fumarate (SEROquel) 37.5 mg TID PO 01/08/21 21:00 01/08/21 20:10 I have reviewed the current psychotropics carefully including drug interactions. Risk benefit ratio favors no change other than as noted in my dictated progress note. Diagnosis: Problems: (1) Major neurocognitive disorder (2) Impulse control disorder, unspecified (3) Anxiety disorder, unspecified (4) Dementia, vascular, with depression (5) Dementia, vascular, with delusions (6) Dementia in Alzheimer's disease with depression (7) Dementia in Alzheimer's disease with delusions (8) Dementia of the Alzheimer's type with early onset with behavioral disturbance DONA BOTELLO MD Jan 08, 2021 20:54
--- NOTE | 2021-01-08 23:59 | NUR ---
Patient located in [facility] assumption of care, where he had been placed by day shift for agitated behaviors. Agitation appears to have abated, but patient remains disorganized and restless. 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 PRN Atarax and Zydis given to patient with HS meds to preclude any agitated or combative behaviors before he was assisted back to his room to get ready for bed. Good effect. Patient compliant with assessments and medications whole. No agitation so far this shift. Patient denies any pain or discomfort. He appears to be sleeping comfortably at present time. Will continue to monitor.
[2021-01-09 06:30] VITALS: BP 120/63
--- NOTE | 2021-01-09 07:13 | PDOC ---
Exam Note: Gus Note: This note is a late entry for 01/05/2021 covers elements not covered in my initial note. Subjective: The patient was seen face to face in the evening of 01/05/2021 with Addis OVIEDO, discussed and reviewed the chart. The patient slept 7-3/4 hours previous night. He remains confused, exit seeking. He gets restless, had to be in the West hallway. Additionally trying to hold hands and get too close with of the other demented patients on the unit but he does redirect. Review of Systems: No CV, , pulmonary, eye, ENT system symptoms on review. Mental Status Exam: The patient is oriented to himself. Insight and judgment, recent and remote memory, attention and concentration, fund of knowledge is poor consistent with his diagnosis. No suicidal or homicidal ideation. Laboratory Data: Reviewed. Impression: Major neurocognitive disorder Alzheimer vascular with delusion, depression, behavioral disturbance. Anxiety disorder unspecified. Impulse control disorder unspecified. Plan: No change from initial note. Assessment: Vital Signs/I&O: Vital Signs Date Time Temp Pulse Resp B/P (MAP) Pulse Ox O2 Delivery O2 Flow Rate FiO2 01/09/21 06:30 98.5 59 14 120/63 (82) 95 Room Air I & O 01/08/21 01/08/21 01/09/21 15:00 23:00 07:00 Intake Total 720 ml 480 ml 120 ml Balance 720 ml 480 ml 120 ml Current Medications: Meds: Current Medications Medications (Trade) Dose Ordered Sig/Evaristo Route PRN Reason Start Time Stop Time Status Last Admin Dose Admin Acetaminophen (Tylenol) 650 mg PRN Q6HRS PRN PO MILD PAIN / TEMP > 100.3'F 11/25/20 18:00 01/08/21 17:35 Multi-Ingredient Ointment (Analgesic [place]) 1 addison PRN QID PRN TP MUSCLE PAIN 11/25/20 18:00 Al Hydroxide/Mg Hydroxide (Mylanta Plus Xs) 15 ml PRN AFTMEALHC PRN PO DYSPEPSIA 11/25/20 18:00 12/10/20 18:52 Magnesium Hydroxide (Milk Of Magnesia) 2,400 mg PRN QHS PRN PO CONSTIPATION 11/25/20 18:00 12/13/20 08:36 Amlodipine Besylate (Norvasc) 10 mg DAILY PO 11/26/20 09:00 01/08/21 08:49 Aspirin (Aspirin Chewable) 81 mg DAILY PO 11/26/20 09:00 01/08/21 08:48 Carvedilol (Coreg) 6.25 mg BIDWMEALS PO 11/25/20 18:30 01/08/21 17:36 Lisinopril (Prinivil) 10 mg DAILY PO 11/26/20 09:00 11/26/20 16:16 DC Quetiapine Fumarate (SEROquel) 25 mg QHS PO 11/25/20 21:00 12/23/20 17:23 DC 12/22/20 20:04 Tamsulosin HCl (Flomax) 0.4 mg DAILY PO 11/26/20 09:00 01/08/21 08:48 Amoxicillin (Amoxil) 500 mg [id number] PO 11/25/20 21:00 12/02/20 14:01 DC 12/02/20 14:15 Atorvastatin Calcium (Lipitor) 40 mg QHS PO 11/25/20 21:00 01/08/21 20:11 Folic Acid (Folic Acid) 1 mg DAILY PO 11/26/20 09:00 01/08/21 08:48 Lidocaine (Lidoderm) 1 patch DAILY TD 11/26/20 09:00 01/08/21 08:49 Multivitamins/ Calcium (Thera-M Plus) 1 tab DAILY PO 11/26/20 09:00 01/08/21 08:49 Thiamine HCl (Vitamin B-1) 100 mg BID PO 11/25/20 21:00 01/08/21 20:09 Olanzapine (ZyPREXA ZYDIS) 2.5 mg PRN Q2HR PRN PO PSYCHOSIS 11/25/20 21:15 01/08/21 20:11 Trazodone HCl (Desyrel) 50 mg PRN QHS PRN PO INSOMNIA, MAY REPEAT IN 1HR 11/25/20 21:15 01/03/21 16:48 DC 01/03/21 02:21 Mirtazapine (Remeron) 7.5 mg QHS PO 11/26/20 21:00 11/28/20 12:23 DC 11/27/20 20:00 Lactobacillus Rhamnosus (Culturelle) 1 cap BID PO 11/27/20 09:00 01/08/21 20:08 Sertraline HCl (Zoloft) 25 mg DAILY PO 11/28/20 09:00 11/30/20 09:01 DC 11/30/20 08:39 Sertraline HCl (Zoloft) 50 mg DAILY PO 12/01/20 09:00 12/03/20 11:00 DC 12/03/20 08:05 Mirtazapine (Remeron) 15 mg QHS PO 11/28/20 21:00 11/29/20 18:47 DC 11/28/20 19:38 Hydroxyzine HCl (Atarax) 25 mg PRN Q2HR PRN PO ABDOMINAL CRAMPS 11/28/20 21:45 01/08/21 20:09 Lorazepam (Ativan) 0.5 mg PRN Q4HRS PRN PO ANXIETY / AGITATION 11/28/20 21:45 11/29/20 21:45 DC Amitriptyline HCl (Elavil) 25 mg QHS PO 11/29/20 21:00 12/23/20 17:23 DC 12/22/20 20:04 Melatonin (Melatonin) 3 mg QHS PO 11/29/20 21:00 01/08/21 20:12 Sertraline HCl (Zoloft) 75 mg DAILY PO 12/04/20 09:00 01/08/21 08:49 Divalproex Sodium (Depakote Er) 500 mg QHS PO 12/02/20 21:00 12/05/20 12:29 DC 12/04/20 20:08 Divalproex Sodium (Depakote Er) 1,000 mg QHS PO 12/05/20 21:00 01/08/21 20:11 Quetiapine Fumarate (SEROquel) 12.5 mg DAILY PO 12/17/20 09:00 12/18/20 16:46 DC 12/18/20 08:01 Quetiapine Fumarate (SEROquel) 12.5 mg [id number] PO 12/19/20 09:00 12/23/20 17:23 DC 12/23/20 13:28 Quetiapine Fumarate (SEROquel) 25 mg TID PO 12/23/20 17:30 01/08/21 16:44 DC 01/08/21 12:48 Amitriptyline HCl (Elavil) 50 mg QHS PO 12/23/20 21:00 01/08/21 20:09 Furosemide (Lasix) 80 mg 1X ONCE PO 12/30/20 16:30 12/30/20 16:31 DC 12/30/20 16:27 Trazodone HCl (Desyrel) 100 mg QHS PO 01/03/21 21:00 01/08/21 20:12 Trazodone HCl (Desyrel) 100 mg PRN QHS PRN PO INSOMNIA, 01/03/21 17:00 01/06/21 21:38 Lactic Acid (Lac-Hydrin) 1 addison BID TP 01/07/21 21:00 01/08/21 20:12 Quetiapine Fumarate (SEROquel) 37.5 mg TID PO 01/08/21 21:00 01/08/21 20:10 Current Medications Medications (Trade) Dose Ordered Sig/Evaristo Route PRN Reason Start Time Stop Time Status Last Admin Dose Admin Quetiapine Fumarate (SEROquel) 37.5 mg TID PO 01/08/21 21:00 01/08/21 20:10 I have reviewed the current psychotropics carefully including drug interactions. Risk benefit ratio favors no change other than as noted in my dictated progress note. Diagnosis: Problems: (1) Major neurocognitive disorder (2) Impulse control disorder, unspecified (3) Anxiety disorder, unspecified (4) Dementia, vascular, with depression (5) Dementia, vascular, with delusions (6) Dementia in Alzheimer's disease with depression (7) Dementia in Alzheimer's disease with delusions (8) Dementia of the Alzheimer's type with early onset with behavioral dis turbance DONA BOTELLO MD Jan 09, 2021 07:13
--- NOTE | 2021-01-09 07:47 | PDOC ---
Exam Note: Gus Note: This note is a late entry for 01/06/2021 covers elements not covered in my initial note. Subjective: The patient was seen face to face in the evening of 01/06/2021 with Addis OVIEDO, discussed and reviewed the chart. The patient slept 6 hours previous night. The patient gets upset if he redirected but later seems to do well. Review of Systems: No CV, , pulmonary, eye, ENT system symptoms on review. Mental Status Exam: The patient is oriented to himself. Insight and judgment, recent and remote memory, attention and concentration, fund of knowledge is poor consistent with his diagnosis. No suicidal or homicidal ideation. Laboratory Data: Reviewed. Impression: Major neurocognitive disorder Alzheimer vascular with delusion, depression, behavioral disturbance. Anxiety disorder unspecified. Impulse control disorder unspecified. Plan: No change from initial note. Assessment: Vital Signs/I&O: Vital Signs Date Time Temp Pulse Resp B/P (MAP) Pulse Ox O2 Delivery O2 Flow Rate FiO2 01/09/21 06:30 98.5 59 14 120/63 (82) 95 Room Air I & O 01/08/21 01/08/21 01/09/21 15:00 23:00 07:00 Intake Total 720 ml 480 ml 120 ml Balance 720 ml 480 ml 120 ml Current Medications: Meds: Current Medications Medications (Trade) Dose Ordered Sig/Evaristo Route PRN Reason Start Time Stop Time Status Last Admin Dose Admin Acetaminophen (Tylenol) 650 mg PRN Q6HRS PRN PO MILD PAIN / TEMP > 100.3'F 11/25/20 18:00 01/08/21 17:35 Multi-Ingredient Ointment (Analgesic [place]) 1 addison PRN QID PRN TP MUSCLE PAIN 11/25/20 18:00 Al Hydroxide/Mg Hydroxide (Mylanta Plus Xs) 15 ml PRN AFTMEALHC PRN PO DYSPEPSIA 11/25/20 18:00 12/10/20 18:52 Magnesium Hydroxide (Milk Of Magnesia) 2,400 mg PRN QHS PRN PO CONSTIPATION 11/25/20 18:00 12/13/20 08:36 Amlodipine Besylate (Norvasc) 10 mg DAILY PO 11/26/20 09:00 01/08/21 08:49 Aspirin (Aspirin Chewable) 81 mg DAILY PO 11/26/20 09:00 01/08/21 08:48 Carvedilol (Coreg) 6.25 mg BIDWMEALS PO 11/25/20 18:30 01/08/21 17:36 Lisinopril (Prinivil) 10 mg DAILY PO 11/26/20 09:00 11/26/20 16:16 DC Quetiapine Fumarate (SEROquel) 25 mg QHS PO 11/25/20 21:00 12/23/20 17:23 DC 12/22/20 20:04 Tamsulosin HCl (Flomax) 0.4 mg DAILY PO 11/26/20 09:00 01/08/21 08:48 Amoxicillin (Amoxil) 500 mg [id number] PO 11/25/20 21:00 12/02/20 14:01 DC 12/02/20 14:15 Atorvastatin Calcium (Lipitor) 40 mg QHS PO 11/25/20 21:00 01/08/21 20:11 Folic Acid (Folic Acid) 1 mg DAILY PO 11/26/20 09:00 01/08/21 08:48 Lidocaine (Lidoderm) 1 patch DAILY TD 11/26/20 09:00 01/08/21 08:49 Multivitamins/ Calcium (Thera-M Plus) 1 tab DAILY PO 11/26/20 09:00 01/08/21 08:49 Thiamine HCl (Vitamin B-1) 100 mg BID PO 11/25/20 21:00 01/08/21 20:09 Olanzapine (ZyPREXA ZYDIS) 2.5 mg PRN Q2HR PRN PO PSYCHOSIS 11/25/20 21:15 01/08/21 20:11 Trazodone HCl (Desyrel) 50 mg PRN QHS PRN PO INSOMNIA, MAY REPEAT IN 1HR 11/25/20 21:15 01/03/21 16:48 DC 01/03/21 02:21 Mirtazapine (Remeron) 7.5 mg QHS PO 11/26/20 21:00 11/28/20 12:23 DC 11/27/20 20:00 Lactobacillus Rhamnosus (Culturelle) 1 cap BID PO 11/27/20 09:00 01/08/21 20:08 Sertraline HCl (Zoloft) 25 mg DAILY PO 11/28/20 09:00 11/30/20 09:01 DC 11/30/20 08:39 Sertraline HCl (Zoloft) 50 mg DAILY PO 12/01/20 09:00 12/03/20 11:00 DC 12/03/20 08:05 Mirtazapine (Remeron) 15 mg QHS PO 11/28/20 21:00 11/29/20 18:47 DC 11/28/20 19:38 Hydroxyzine HCl (Atarax) 25 mg PRN Q2HR PRN PO ABDOMINAL CRAMPS 11/28/20 21:45 01/08/21 20:09 Lorazepam (Ativan) 0.5 mg PRN Q4HRS PRN PO ANXIETY / AGITATION 11/28/20 21:45 11/29/20 21:45 DC Amitriptyline HCl (Elavil) 25 mg QHS PO 11/29/20 21:00 12/23/20 17:23 DC 12/22/20 20:04 Melatonin (Melatonin) 3 mg QHS PO 11/29/20 21:00 01/08/21 20:12 Sertraline HCl (Zoloft) 75 mg DAILY PO 12/04/20 09:00 01/08/21 08:49 Divalproex Sodium (Depakote Er) 500 mg QHS PO 12/02/20 21:00 12/05/20 12:29 DC 12/04/20 20:08 Divalproex Sodium (Depakote Er) 1,000 mg QHS PO 12/05/20 21:00 01/08/21 20:11 Quetiapine Fumarate (SEROquel) 12.5 mg DAILY PO 12/17/20 09:00 12/18/20 16:46 DC 12/18/20 08:01 Quetiapine Fumarate (SEROquel) 12.5 mg [id number] PO 12/19/20 09:00 12/23/20 17:23 DC 12/23/20 13:28 Quetiapine Fumarate (SEROquel) 25 mg TID PO 12/23/20 17:30 01/08/21 16:44 DC 01/08/21 12:48 Amitriptyline HCl (Elavil) 50 mg QHS PO 12/23/20 21:00 01/08/21 20:09 Furosemide (Lasix) 80 mg 1X ONCE PO 12/30/20 16:30 12/30/20 16:31 DC 12/30/20 16:27 Trazodone HCl (Desyrel) 100 mg QHS PO 01/03/21 21:00 01/08/21 20:12 Trazodone HCl (Desyrel) 100 mg PRN QHS PRN PO INSOMNIA, 01/03/21 17:00 01/06/21 21:38 Lactic Acid (Lac-Hydrin) 1 addison BID TP 01/07/21 21:00 01/08/21 20:12 Quetiapine Fumarate (SEROquel) 37.5 mg TID PO 01/08/21 21:00 01/08/21 20:10 Current Medications Medications (Trade) Dose Ordered Sig/Evaristo Route PRN Reason Start Time Stop Time Status Last Admin Dose Admin Quetiapine Fumarate (SEROquel) 37.5 mg TID PO 01/08/21 21:00 01/08/21 20:10 I have reviewed the current psychotropics carefully including drug interactions. Risk benefit ratio favors no change other than as noted in my dictated progress note. Diagnosis: Problems: (1) Major neurocognitive disorder (2) Impulse control disorder, unspecified (3) Anxiety disorder, unspecified (4) Dementia, vascular, with depression (5) Dementia, vascular, with delusions (6) Dementia in Alzheimer's disease with depression (7) Dementia in Alzheimer's disease with delusions (8) Dementia of the Alzheimer's type with early onset with behavioral disturbance DONA BOTELLO MD Jan 09, 2021 07:47
[2021-01-09] MEDS: CARVEDILOL 6.25 MG TABLET PO SCH ×2 (08:00→17:40)
--- NOTE | 2021-01-09 08:13 | PDOC ---
Exam Note: Gus Note: This note is a late entry for 01/07/2021 covers elements not covered in my initial note. Subjective: The patient was seen face to face in the evening of 01/07/2021 with Hanane OVIEDO, discussed and reviewed the chart. The patient slept 7 hours previous night. He has been confused, wandering, delusional at times, but redirects. Review of Systems: No CV, , pulmonary, eye, ENT system symptoms on review. Mental Status Exam: The patient is oriented to himself. Insight and judgment, recent and remote memory, attention and concentration, fund of knowledge is poor consistent with his diagnosis. No suicidal or homicidal ideation. Laboratory Data: Reviewed. Impression: Major neurocognitive disorder Alzheimer vascular with delusion, depression, behavioral disturbance. Anxiety disorder unspecified. Impulse control disorder unspecified. Plan: No change from initial note. Assessment: Vital Signs/I&O: Vital Signs Date Time Temp Pulse Resp B/P (MAP) Pulse Ox O2 Delivery O2 Flow Rate FiO2 01/09/21 06:30 98.5 59 14 120/63 (82) 95 Room Air I & O 01/08/21 01/08/21 01/09/21 15:00 23:00 07:00 Intake Total 720 ml 480 ml 120 ml Balance 720 ml 480 ml 120 ml Current Medications: Meds: Current Medications Medications (Trade) Dose Ordered Sig/Evaristo Route PRN Reason Start Time Stop Time Status Last Admin Dose Admin Acetaminophen (Tylenol) 650 mg PRN Q6HRS PRN PO MILD PAIN / TEMP > 100.3'F 11/25/20 18:00 01/08/21 17:35 Multi-Ingredient Ointment (Analgesic [place]) 1 addison PRN QID PRN TP MUSCLE PAIN 11/25/20 18:00 Al Hydroxide/Mg Hydroxide (Mylanta Plus Xs) 15 ml PRN AFTMEALHC PRN PO DYSPEPSIA 11/25/20 18:00 12/10/20 18:52 Magnesium Hydroxide (Milk Of Magnesia) 2,400 mg PRN QHS PRN PO CONSTIPATION 11/25/20 18:00 12/13/20 08:36 Amlodipine Besylate (Norvasc) 10 mg DAILY PO 11/26/20 09:00 01/08/21 08:49 Aspirin (Aspirin Chewable) 81 mg DAILY PO 11/26/20 09:00 01/08/21 08:48 Carvedilol (Coreg) 6.25 mg BIDWMEALS PO 11/25/20 18:30 01/08/21 17:36 Lisinopril (Prinivil) 10 mg DAILY PO 11/26/20 09:00 11/26/20 16:16 DC Quetiapine Fumarate (SEROquel) 25 mg QHS PO 11/25/20 21:00 12/23/20 17:23 DC 12/22/20 20:04 Tamsulosin HCl (Flomax) 0.4 mg DAILY PO 11/26/20 09:00 01/08/21 08:48 Amoxicillin (Amoxil) 500 mg [id number] PO 11/25/20 21:00 12/02/20 14:01 DC 12/02/20 14:15 Atorvastatin Calcium (Lipitor) 40 mg QHS PO 11/25/20 21:00 01/08/21 20:11 Folic Acid (Folic Acid) 1 mg DAILY PO 11/26/20 09:00 01/08/21 08:48 Lidocaine (Lidoderm) 1 patch DAILY TD 11/26/20 09:00 01/08/21 08:49 Multivitamins/ Calcium (Thera-M Plus) 1 tab DAILY PO 11/26/20 09:00 01/08/21 08:49 Thiamine HCl (Vitamin B-1) 100 mg BID PO 11/25/20 21:00 01/08/21 20:09 Olanzapine (ZyPREXA ZYDIS) 2.5 mg PRN Q2HR PRN PO PSYCHOSIS 11/25/20 21:15 01/08/21 20:11 Trazodone HCl (Desyrel) 50 mg PRN QHS PRN PO INSOMNIA, MAY REPEAT IN 1HR 11/25/20 21:15 01/03/21 16:48 DC 01/03/21 02:21 Mirtazapine (Remeron) 7.5 mg QHS PO 11/26/20 21:00 11/28/20 12:23 DC 11/27/20 20:00 Lactobacillus Rhamnosus (Culturelle) 1 cap BID PO 11/27/20 09:00 01/08/21 20:08 Sertraline HCl (Zoloft) 25 mg DAILY PO 11/28/20 09:00 11/30/20 09:01 DC 11/30/20 08:39 Sertraline HCl (Zoloft) 50 mg DAILY PO 12/01/20 09:00 12/03/20 11:00 DC 12/03/20 08:05 Mirtazapine (Remeron) 15 mg QHS PO 11/28/20 21:00 11/29/20 18:47 DC 11/28/20 19:38 Hydroxyzine HCl (Atarax) 25 mg PRN Q2HR PRN PO ABDOMINAL CRAMPS 11/28/20 21:45 01/08/21 20:09 Lorazepam (Ativan) 0.5 mg PRN Q4HRS PRN PO ANXIETY / AGITATION 11/28/20 21:45 11/29/20 21:45 DC Amitriptyline HCl (Elavil) 25 mg QHS PO 11/29/20 21:00 12/23/20 17:23 DC 12/22/20 20:04 Melatonin (Melatonin) 3 mg QHS PO 11/29/20 21:00 01/08/21 20:12 Sertraline HCl (Zoloft) 75 mg DAILY PO 12/04/20 09:00 01/08/21 08:49 Divalproex Sodium (Depakote Er) 500 mg QHS PO 12/02/20 21:00 12/05/20 12:29 DC 12/04/20 20:08 Divalproex Sodium (Depakote Er) 1,000 mg QHS PO 12/05/20 21:00 01/08/21 20:11 Quetiapine Fumarate (SEROquel) 12.5 mg DAILY PO 12/17/20 09:00 12/18/20 16:46 DC 12/18/20 08:01 Quetiapine Fumarate (SEROquel) 12.5 mg [id number] PO 12/19/20 09:00 12/23/20 17:23 DC 12/23/20 13:28 Quetiapine Fumarate (SEROquel) 25 mg TID PO 12/23/20 17:30 01/08/21 16:44 DC 01/08/21 12:48 Amitriptyline HCl (Elavil) 50 mg QHS PO 12/23/20 21:00 01/08/21 20:09 Furosemide (Lasix) 80 mg 1X ONCE PO 12/30/20 16:30 12/30/20 16:31 DC 12/30/20 16:27 Trazodone HCl (Desyrel) 100 mg QHS PO 01/03/21 21:00 01/08/21 20:12 Trazodone HCl (Desyrel) 100 mg PRN QHS PRN PO INSOMNIA, 01/03/21 17:00 01/06/21 21:38 Lactic Acid (Lac-Hydrin) 1 addison BID TP 01/07/21 21:00 01/08/21 20:12 Quetiapine Fumarate (SEROquel) 37.5 mg TID PO 01/08/21 21:00 01/08/21 20:10 Current Medications Medications (Trade) Dose Ordered Sig/Evaristo Route PRN Reason Start Time Stop Time Status Last Admin Dose Admin Quetiapine Fumarate (SEROquel) 37.5 mg TID PO 01/08/21 21:00 01/08/21 20:10 I have reviewed the current psychotropics carefully including drug interactions. Risk benefit ratio favors no change other than as noted in my dictated progress note. Diagnosis: Problems: (1) Major neurocognitive disorder (2) Impulse control disorder, unspecified (3) Anxiety disorder, unspecified (4) Dementia, vascular, with depression (5) Dementia, vascular, with delusions (6) Dementia in Alzheimer's disease with depression (7) Dementia in Alzheimer's disease with delusions (8) Dementia of the Alzheimer's type with early onset with behavioral disturbance DONA BOTELLO MD Jan 09, 2021 08:13
--- NOTE | 2021-01-09 08:38 | PDOC ---
Exam Note: Gus Note: This note is a late entry for 01/08/2021 covers elements not covered in my initial note. Subjective: The patient was seen face to face in the evening of 01/08/2021 with Hanane OVIEDO, discussed and reviewed the chart. The patient slept 1-3/4 hours previous night. He did well previous night. He was up at 4.30 a.m., angry, confused, asking people that this was his house and he wanted them to leave. He was holding hand of another demented patient this evening when staff intervened. He was charging at the [employer] staff, paranoid, aggressive but redirected. Review of Systems: No CV, , pulmonary, eye, ENT system symptoms on review. Reliability poor. Mental Status Exam: The patient is oriented to himself. Insight and judgment, recent and remote memory, attention and concentration, fund of knowledge is poor consistent with his diagnosis. No suicidal or homicidal ideation. Laboratory Data: Reviewed. Impression: Major neurocognitive disorder Alzheimer vascular with delusion, depression, behavioral disturbance. Anxiety disorder unspecified. Impulse control disorder unspecified. Plan: Increase Seroquel from 25 mg t.i.d. to 37.5 mg t.i.d. Continue rest unchanged. Maintain Depakote ER 1000 mg h.s. Level therapeutic at 53. Assessment: Vital Signs/I&O: Vital Signs Date Time Temp Pulse Resp B/P (MAP) Pulse Ox O2 Delivery O2 Flow Rate FiO2 01/09/21 06:30 98.5 59 14 120/63 (82) 95 Room Air I & O 01/08/21 01/08/21 01/09/21 15:00 23:00 07:00 Intake Total 720 ml 480 ml 120 ml Balance 720 ml 480 ml 120 ml Current Medications: Meds: Current Medications Medications (Trade) Dose Ordered Sig/Evaristo Route PRN Reason Start Time Stop Time Status Last Admin Dose Admin Acetaminophen (Tylenol) 650 mg PRN Q6HRS PRN PO MILD PAIN / TEMP > 100.3'F 11/25/20 18:00 01/08/21 17:35 Multi-Ingredient Ointment (Analgesic [place]) 1 addison PRN QID PRN TP MUSCLE PAIN 11/25/20 18:00 Al Hydroxide/Mg Hydroxide (Mylanta Plus Xs) 15 ml PRN AFTMEALHC PRN PO DYSPEPSIA 11/25/20 18:00 12/10/20 18:52 Magnesium Hydroxide (Milk Of Magnesia) 2,400 mg PRN QHS PRN PO CONSTIPATION 11/25/20 18:00 12/13/20 08:36 Amlodipine Besylate (Norvasc) 10 mg DAILY PO 11/26/20 09:00 01/08/21 08:49 Aspirin (Aspirin Chewable) 81 mg DAILY PO 11/26/20 09:00 01/08/21 08:48 Carvedilol (Coreg) 6.25 mg BIDWMEALS PO 11/25/20 18:30 01/08/21 17:36 Lisinopril (Prinivil) 10 mg DAILY PO 11/26/20 09:00 11/26/20 16:16 DC Quetiapine Fumarate (SEROquel) 25 mg QHS PO 11/25/20 21:00 12/23/20 17:23 DC 12/22/20 20:04 Tamsulosin HCl (Flomax) 0.4 mg DAILY PO 11/26/20 09:00 01/08/21 08:48 Amoxicillin (Amoxil) 500 mg [id number] PO 11/25/20 21:00 12/02/20 14:01 DC 12/02/20 14:15 Atorvastatin Calcium (Lipitor) 40 mg QHS PO 11/25/20 21:00 01/08/21 20:11 Folic Acid (Folic Acid) 1 mg DAILY PO 11/26/20 09:00 01/08/21 08:48 Lidocaine (Lidoderm) 1 patch DAILY TD 11/26/20 09:00 01/08/21 08:49 Multivitamins/ Calcium (Thera-M Plus) 1 tab DAILY PO 11/26/20 09:00 01/08/21 08:49 Thiamine HCl (Vitamin B-1) 100 mg BID PO 11/25/20 21:00 01/08/21 20:09 Olanzapine (ZyPREXA ZYDIS) 2.5 mg PRN Q2HR PRN PO PSYCHOSIS 11/25/20 21:15 01/08/21 20:11 Trazodone HCl (Desyrel) 50 mg PRN QHS PRN PO INSOMNIA, MAY REPEAT IN 1HR 11/25/20 21:15 01/03/21 16:48 DC 01/03/21 02:21 Mirtazapine (Remeron) 7.5 mg QHS PO 11/26/20 21:00 11/28/20 12:23 DC 11/27/20 20:00 Lactobacillus Rhamnosus (Culturelle) 1 cap BID PO 11/27/20 09:00 01/08/21 20:08 Sertraline HCl (Zoloft) 25 mg DAILY PO 11/28/20 09:00 11/30/20 09:01 DC 11/30/20 08:39 Sertraline HCl (Zoloft) 50 mg DAILY PO 12/01/20 09:00 12/03/20 11:00 DC 12/03/20 08:05 Mirtazapine (Remeron) 15 mg QHS PO 11/28/20 21:00 11/29/20 18:47 DC 11/28/20 19:38 Hydroxyzine HCl (Atarax) 25 mg PRN Q2HR PRN PO ABDOMINAL CRAMPS 11/28/20 21:45 01/08/21 20:09 Lorazepam (Ativan) 0.5 mg PRN Q4HRS PRN PO ANXIETY / AGITATION 11/28/20 21:45 11/29/20 21:45 DC Amitriptyline HCl (Elavil) 25 mg QHS PO 11/29/20 21:00 12/23/20 17:23 DC 12/22/20 20:04 Melatonin (Melatonin) 3 mg QHS PO 11/29/20 21:00 01/08/21 20:12 Sertraline HCl (Zoloft) 75 mg DAILY PO 12/04/20 09:00 01/08/21 08:49 Divalproex Sodium (Depakote Er) 500 mg QHS PO 12/02/20 21:00 12/05/20 12:29 DC 12/04/20 20:08 Divalproex Sodium (Depakote Er) 1,000 mg QHS PO 12/05/20 21:00 01/08/21 20:11 Quetiapine Fumarate (SEROquel) 12.5 mg DAILY PO 12/17/20 09:00 12/18/20 16:46 DC 12/18/20 08:01 Quetiapine Fumarate (SEROquel) 12.5 mg [id number] PO 12/19/20 09:00 12/23/20 17:23 DC 12/23/20 13:28 Quetiapine Fumarate (SEROquel) 25 mg TID PO 12/23/20 17:30 01/08/21 16:44 DC 01/08/21 12:48 Amitriptyline HCl (Elavil) 50 mg QHS PO 12/23/20 21:00 01/08/21 20:09 Furosemide (Lasix) 80 mg 1X ONCE PO 12/30/20 16:30 12/30/20 16:31 DC 12/30/20 16:27 Trazodone HCl (Desyrel) 100 mg QHS PO 01/03/21 21:00 01/08/21 20:12 Trazodone HCl (Desyrel) 100 mg PRN QHS PRN PO INSOMNIA, 01/03/21 17:00 01/06/21 21:38 Lactic Acid (Lac-Hydrin) 1 addison BID TP 01/07/21 21:00 01/08/21 20:12 Quetiapine Fumarate (SEROquel) 37.5 mg TID PO 01/08/21 21:00 01/08/21 20:10 Current Medications Medications (Trade) Dose Ordered Sig/Evairsto Route PRN Reason Start Time Stop Time Status Last Admin Dose Admin Quetiapine Fumarate (SEROquel) 37.5 mg TID PO 01/08/21 21:00 01/08/21 20:10 I have reviewed the current psychotropics carefully including drug interactions. Risk benefit ratio favors no change other than as noted in my dictated progress note. Diagnosis: Problems: (1) Major neurocognitive disorder (2) Impulse control disorder, unspecified (3) Anxiety disorder, unspecified (4) Dementia, vascular, with depression (5) Dementia, vascular, with delusions (6) Dementia in Alzheimer's disease with depression (7) Dementia in Alzheimer's disease with delusions (8) Dementia of the Alzheimer's type with early onset with behavioral disturbance DONA BOTELLO MD Jan 09, 2021 08:38
[2021-01-09] MEDS: MULTIVITAMIN with MINERAL TABLET. PO SCH (09:00)
[2021-01-09] MEDS: LIDOCAINE (700MG/PATCH) PATCH. TD SCH (09:00)
[2021-01-09] MEDS: LACTOBACILLUS RHAMNOSUS GG 1 CAPSULE. PO SCH ×2 (09:00→20:24)
[2021-01-09] MEDS: amLODIPine BESYLATE 10 MG TABLET PO SCH (09:00)
[2021-01-09] MEDS: AMMONIUM LACTATE 12% TOPICAL LOTION 226GM BOTTLE. TP SCH ×2 (09:00→20:27)
[2021-01-09] MEDS: ASPIRIN CHEWABLE 81 MG TABLET. PO SCH (09:00)
[2021-01-09] MEDS: SERTRALINE 25 MG TABLET. PO SCH (09:00)
[2021-01-09] MEDS: THIAMINE 100 MG TABLET. PO SCH ×2 (09:00→20:26)
[2021-01-09] MEDS: TAMSULOSIN 0.4 MG CAP.ER.24H. PO SCH (09:00)
[2021-01-09] MEDS: FOLIC ACID 1 MG TABLET PO SCH (09:00)
[2021-01-09] MEDS: QUEtiapine 25 MG TABLET. PO SCH ×3 (09:00→20:25)
--- NOTE | 2021-01-09 12:06 | NUR ---
See downtime med rec for am medication administration.
--- NOTE | 2021-01-09 12:30 | NUR ---
WEEKLY ACTIVITY THERAPY NOTE Date of Admission: 11/25/2020 Date of AT Assessment: 11/28/2020 Precipitating behaviors that initiated intake and admission: Patient was reported to be confused, agitated, delusional, hallucinating, removing IVs, and not cooperating with cares at [address]. Goal aimed: to increase engagement and socialization Initial Goal: Pt. will participate in at least one Activity Therapy group per day. Weekly progress towards goal: achieved Group participation level: 3 min, 3 mod, 2 full Weekly highlights: fully engaged in sensory room on afternoon Behaviors observed: hyper fixating on female peers, difficult to redirect at times, needed escort to secured hallway, direct prompting in groups Plan: no change to goal Beneficial adaptations:
--- NOTE | 2021-01-09 13:37 | TX PLAN ---
Interdisciplinary Tx Plan Admission Information Nov 25, 2020 at 15:25 Legal Status (on Admission): Voluntary, Court Appointed Guardian, Court Appointed Conservat DPOA/Guardian Name: Maxwell Martinez- guardian Contact Verified Code Status: Full Code Allergies: Coded Allergies: No Known Drug Allergies (Unverified , 11/25/20) Estimated Length of Stay: 14 Diagnoses Primary Diagnosis: Major neurocognitive d/o, vascular, alzheimers with delusions, depresion, BD; Anxiety d/o unspecified; impulse control d/o Reasons for Admission: Aggressive, Delusions, Agitated, Alcohol Abuse, Sig. Change Sleep, Anxiety/Panic, Hallucinations, Combative, Confusion/Disoriented, Poor impulse control Problem in Patient's Words: Per Scottie, " Love and caring about her and my family." Per guardian, unsafe to live at home alone with level of confusion and memory impairment. Additional Admission Comments: Per intake record, hallucinating, delusional, aggressive during rosa m care, confused, restless, nonsensical speech, anxious, insomnia, poor safety, pulled out IV, uncooperative, agitated, and yelling out. Problems Active Problems: Confused Delsuional Hallucinating Wandering, intrusive, restless Poor sleep Inactive Problems: Adequate meal intake Compliant with meds Pt Strengths/Limitations Ability for [place]: Poor Cognitive Functioning/Ability: Poor Communication Skills/Ability: Fair Financial Resources: Fair Insight/Judgement: Poor Intellectual Ability: Fair Physical Health: Fair Social Skills: Fair Stability in Family: Poor Verbal Skills: Fair Discharge Criteria Discharge Criteria: Adequate arrangements @DC, Improved behavior, Improved mood/thought Preliminary Discharge Plan Preliminary DC Plan: Placement Needed Special Precautions Special Precautions: Agitation/Assault Fall Risk: High Initial D/C Plan Scottie will need placement. [facility] is in the process of determining if a medicaid applincation will need to be filed to pay for senior care care. Identified Discharge Needs: Scottie will need placement due to memory impairment. Currently Utilized Resources Currently Utilized Resources/P: PCP Referrals Community Resources: Placement referral PCP Psychiatry if available Identified Problems/Hx/Goals Objectives/Short-Term Goals Short Term Goals: Control abnormal behavior, Dec. Aggression, Dec. Anxiety/Panic, Dec. Hallucination/Delus, Dec. Outbursts, Medication Stabilization, Monitor Med Effects Short Term Goals in Patient's: Melvin Rubin, "I hope to conquer even better and us get along." Interventions/Frequency Staff Interventions/Frequency&: Nursing to provide routine safety checks, medication administration, and adl support. Psychiatry thre times weekly. SW visits twice weekly. Recreational and SW groups as Scottie will participate. 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 Social: Scottie enjoys basketball, swimming, and country music. Education: Scottie reported graduating high school. Community Follow-up PCP Psychiatry if available Placement referral Community Provider/Family Inpu: Treatment team meeting was held on 11/28/20. entry engineer of treatment plan was enterred on 11/29/20. Maxwell, guardian, declined to be involed in team meetings but does want to know any recommendations concerning Scottie. 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 Pt is restless, continues to be delusional and needs consistent redirection for some inappropriate interactions with female peers. Pt was found in a peers bed and found as attempts to hold hands with peer whom he claims is "his girlfriend". Pt was extremely physically aggressive with staff, in which staff was thrown to the floor. Pt does not get appear to get aggressive until he is redirected from female staff. Pt received and increase in Seroquel from 25mg to 37.5mg TID. Referrals for placement were sent out; with no acceptance at this time. BA MUÑIZ Jan 09, 2021 13:37
--- NOTE | 2021-01-09 16:09 | NUR ---
Pt has been disorganized, confused, and wandering this day. He barricaded himself in his room in the afternoon and staff x 3 assist deescalated him. He often looks for "Harjit" and his tools and items he needs to work on. He has not been able to redirect well and has needed multiple PRN medication. See downtime MAR in chart. He is compliant with his medication and assessment.
[2021-01-09 16:12] VITALS: BP 144/77
[2021-01-09] MEDS: DIVALPROEX ER 500 MG TAB.ER.24H PO SCH (20:24)
[2021-01-09] MEDS: traZODone 100 MG TABLET. PO SCH (20:25)
[2021-01-09] MEDS: MELATONIN 3 MG TABLET PO SCH (20:25)
[2021-01-09] MEDS: AMITRIPTYLINE HCL 50 MG TABLET PO SCH (20:26)
[2021-01-09] MEDS: ATORVASTATIN CALCIUM 20 MG TABLET PO SCH (20:26)
--- NOTE | 2021-01-09 21:06 | PDOC ---
Exam Note: Gus Note: Please also refer to the separate dictated note~for this date of service dictated separately.~Patient seen individually. Discussed the patient with Nursing staff reviewed the chart.~Reviewed interim history and current functioning. Reviewed vital signs,~Labs/ Radiology~and current medications noted below. Continue current treatment with the changes noted in the dictated addendum note Assessment: Vital Signs/I&O: Vital Signs Date Time Temp Pulse Resp B/P (MAP) Pulse Ox O2 Delivery O2 Flow Rate FiO2 01/09/21 17:40 88 144/77 01/09/21 16:12 97.3 16 98 01/09/21 06:30 Room Air I & O 01/08/21 01/08/21 01/09/21 15:00 23:00 07:00 Intake Total 720 ml 480 ml 120 ml Balance 720 ml 480 ml 120 ml Current Medications: Meds: Current Medications Medications (Trade) Dose Ordered Sig/Evaristo Route PRN Reason Start Time Stop Time Status Last Admin Dose Admin Acetaminophen (Tylenol) 650 mg PRN Q6HRS PRN PO MILD PAIN / TEMP > 100.3'F 11/25/20 18:00 01/08/21 17:35 Multi-Ingredient Ointment (Analgesic [place]) 1 addison PRN QID PRN TP MUSCLE PAIN 11/25/20 18:00 Al Hydroxide/Mg Hydroxide (Mylanta Plus Xs) 15 ml PRN AFTMEALHC PRN PO DYSPEPSIA 11/25/20 18:00 12/10/20 18:52 Magnesium Hydroxide (Milk Of Magnesia) 2,400 mg PRN QHS PRN PO CONSTIPATION 11/25/20 18:00 12/13/20 08:36 Amlodipine Besylate (Norvasc) 10 mg DAILY PO 11/26/20 09:00 01/08/21 08:49 Aspirin (Aspirin Chewable) 81 mg DAILY PO 11/26/20 09:00 01/08/21 08:48 Carvedilol (Coreg) 6.25 mg BIDWMEALS PO 11/25/20 18:30 01/09/21 17:40 Lisinopril (Prinivil) 10 mg DAILY PO 11/26/20 09:00 11/26/20 16:16 DC Quetiapine Fumarate (SEROquel) 25 mg QHS PO 11/25/20 21:00 12/23/20 17:23 DC 12/22/20 20:04 Tamsulosin HCl (Flomax) 0.4 mg DAILY PO 11/26/20 09:00 01/08/21 08:48 Amoxicillin (Amoxil) 500 mg [id number] PO 11/25/20 21:00 12/02/20 14:01 DC 12/02/20 14:15 Atorvastatin Calcium (Lipitor) 40 mg QHS PO 11/25/20 21:00 01/09/21 20:26 Folic Acid (Folic Acid) 1 mg DAILY PO 11/26/20 09:00 01/08/21 08:48 Lidocaine (Lidoderm) 1 patch DAILY TD 11/26/20 09:00 01/08/21 08:49 Multivitamins/ Calcium (Thera-M Plus) 1 tab DAILY PO 11/26/20 09:00 01/08/21 08:49 Thiamine HCl (Vitamin B-1) 100 mg BID PO 11/25/20 21:00 01/09/21 20:26 Olanzapine (ZyPREXA ZYDIS) 2.5 mg PRN Q2HR PRN PO PSYCHOSIS 11/25/20 21:15 01/08/21 20:11 Trazodone HCl (Desyrel) 50 mg PRN QHS PRN PO INSOMNIA, MAY REPEAT IN 1HR 11/25/20 21:15 01/03/21 16:48 DC 01/03/21 02:21 Mirtazapine (Remeron) 7.5 mg QHS PO 11/26/20 21:00 11/28/20 12:23 DC 11/27/20 20:00 Lactobacillus Rhamnosus (Culturelle) 1 cap BID PO 11/27/20 09:00 01/09/21 20:24 Sertraline HCl (Zoloft) 25 mg DAILY PO 11/28/20 09:00 11/30/20 09:01 DC 11/30/20 08:39 Sertraline HCl (Zoloft) 50 mg DAILY PO 12/01/20 09:00 12/03/20 11:00 DC 12/03/20 08:05 Mirtazapine (Remeron) 15 mg QHS PO 11/28/20 21:00 11/29/20 18:47 DC 11/28/20 19:38 Hydroxyzine HCl (Atarax) 25 mg PRN Q2HR PRN PO ABDOMINAL CRAMPS 11/28/20 21:45 01/08/21 20:09 Lorazepam (Ativan) 0.5 mg PRN Q4HRS PRN PO ANXIETY / AGITATION 11/28/20 21:45 11/29/20 21:45 DC Amitriptyline HCl (Elavil) 25 mg QHS PO 11/29/20 21:00 12/23/20 17:23 DC 12/22/20 20:04 Melatonin (Melatonin) 3 mg QHS PO 11/29/20 21:00 01/09/21 20:25 Sertraline HCl (Zoloft) 75 mg DAILY PO 12/04/20 09:00 01/08/21 08:49 Divalproex Sodium (Depakote Er) 500 mg QHS PO 12/02/20 21:00 12/05/20 12:29 DC 12/04/20 20:08 Divalproex Sodium (Depakote Er) 1,000 mg QHS PO 12/05/20 21:00 01/09/21 20:24 Quetiapine Fumarate (SEROquel) 12.5 mg DAILY PO 12/17/20 09:00 12/18/20 16:46 DC 12/18/20 08:01 Quetiapine Fumarate (SEROquel) 12.5 mg [id number] PO 12/19/20 09:00 12/23/20 17:23 DC 12/23/20 13:28 Quetiapine Fumarate (SEROquel) 25 mg TID PO 12/23/20 17:30 01/08/21 16:44 DC 01/08/21 12:48 Amitriptyline HCl (Elavil) 50 mg QHS PO 12/23/20 21:00 01/09/21 20:26 Furosemide (Lasix) 80 mg 1X ONCE PO 12/30/20 16:30 12/30/20 16:31 DC 12/30/20 16:27 Trazodone HCl (Desyrel) 100 mg QHS PO 01/03/21 21:00 01/09/21 20:25 Trazodone HCl (Desyrel) 100 mg PRN QHS PRN PO INSOMNIA, 01/03/21 17:00 01/06/21 21:38 Lactic Acid (Lac-Hydrin) 1 addison BID TP 01/07/21 21:00 01/09/21 20:27 Quetiapine Fumarate (SEROquel) 37.5 mg TID PO 01/08/21 21:00 01/09/21 20:25 I have reviewed the current psychotropics carefully including drug interactions. Risk benefit ratio favors no change other than as noted in my dictated progress note. Diagnosis: Problems: (1) Major neurocognitive disorder (2) Impulse control disorder, unspecified (3) Anxiety disorder, unspecified (4) Dementia, vascular, with depression (5) Dementia, vascular, with delusions (6) Dementia in Alzheimer's disease with depression (7) Dementia in Alzheimer's disease with delusions (8) Dementia of the Alzheimer's type with early onset with behavioral disturbance DONA BOTELLO MD Jan 09, 2021 21:06
[2021-01-09] MEDS: traZODone 100 MG TABLET. PO PRN (22:16)
--- NOTE | 2021-01-09 22:50 | NUR ---
Patient has been wandering this evening. He was in his room for [employer], he has been walking in the hallway since then. Patients legs and feet are red and swollen, he refuses to keep his legs elevated. Patient compliant with medications, delusional and disorganized. Patient handed this nurse his dirty socks and said "give these tools to Foster and Dom". PRN trazodone given at 2200.
[2021-01-10 05:59] VITALS: BP 151/91
[2021-01-10] MEDS: CARVEDILOL 6.25 MG TABLET PO SCH ×2 (08:00→17:07)
[2021-01-10] MEDS: LACTOBACILLUS RHAMNOSUS GG 1 CAPSULE. PO SCH ×2 (09:00→19:51)
[2021-01-10] MEDS: ASPIRIN CHEWABLE 81 MG TABLET. PO SCH (09:00)
[2021-01-10] MEDS: MULTIVITAMIN with MINERAL TABLET. PO SCH (09:00)
[2021-01-10] MEDS: QUEtiapine 25 MG TABLET. PO SCH ×3 (09:00→19:52)
[2021-01-10] MEDS: LIDOCAINE (700MG/PATCH) PATCH. TD SCH (09:00)
[2021-01-10] MEDS: FOLIC ACID 1 MG TABLET PO SCH (09:00)
[2021-01-10] MEDS: THIAMINE 100 MG TABLET. PO SCH ×2 (09:00→19:51)
[2021-01-10] MEDS: SERTRALINE 25 MG TABLET. PO SCH (09:00)
[2021-01-10] MEDS: AMMONIUM LACTATE 12% TOPICAL LOTION 226GM BOTTLE. TP SCH ×2 (09:00→19:52)
[2021-01-10] MEDS: TAMSULOSIN 0.4 MG CAP.ER.24H. PO SCH (09:00)
[2021-01-10] MEDS: amLODIPine BESYLATE 10 MG TABLET PO SCH (09:00)
[2021-01-10 16:22] VITALS: BP 129/80
[2021-01-10] MEDS: hydrOXYzine HCL 25 MG TABLET PO PRN (17:06)
[2021-01-10] MEDS: MELATONIN 3 MG TABLET PO SCH (19:51)
[2021-01-10] MEDS: ATORVASTATIN CALCIUM 20 MG TABLET PO SCH (19:51)
[2021-01-10] MEDS: AMITRIPTYLINE HCL 50 MG TABLET PO SCH (19:51)
[2021-01-10] MEDS: DIVALPROEX ER 500 MG TAB.ER.24H PO SCH (19:51)
[2021-01-10] MEDS: traZODone 100 MG TABLET. PO SCH (19:52)
--- NOTE | 2021-01-10 21:25 | PDOC ---
Exam Note: Gus Note: This note is a late entry for 01/09/2021 covers elements not covered in my initial note. Subjective: The patient was seen face to face in the morning of 01/09/2021 for a treatment team meeting with Mell Larios, Dolores Contreras and Denise (social insurance analyst), Mikayla Fiore, activity therapy and Neris RN, discussed and reviewed the chart. The patient slept 8 hours previous night. He is confused, wandering with no pants on, holding hands of another demented female patient aggressive with one of the nursing staff. He does redirect ultimately. Review of Systems: No CV, , pulmonary, eye, ENT system symptoms on review. Reliability poor. Mental Status Exam: The patient is oriented to himself. Insight and judgment, recent and remote memory, attention and concentration, fund of knowledge is poor consistent with his diagnosis. No suicidal or homicidal ideation. Laboratory Data: Reviewed. Impression: Major neurocognitive disorder Alzheimer vascular with delusion, depression, behavioral disturbance. Anxiety disorder unspecified. Impulse control disorder unspecified. Plan: We have increased the Seroquel just yesterday from 25 mg t.i.d. to 37.5 mg t.i.d. We will continue and monitor this. Continue rest unchanged. Assessment: Vital Signs/I&O: Vital Signs Date Time Temp Pulse Resp B/P (MAP) Pulse Ox O2 Delivery O2 Flow Rate FiO2 01/10/21 17:07 71 129/80 01/10/21 16:22 97.4 16 97 01/10/21 05:59 Room Air I & O 01/09/21 01/09/21 01/10/21 15:00 23:00 07:00 Intake Total 600 ml 480 ml 120 ml Balance 600 ml 480 ml 120 ml Current Medications: Meds: Current Medications Medications (Trade) Dose Ordered Sig/Evaristo Route PRN Reason Start Time Stop Time Status Last Admin Dose Admin Acetaminophen (Tylenol) 650 mg PRN Q6HRS PRN PO MILD PAIN / TEMP > 100.3'F 11/25/20 18:00 01/08/21 17:35 Multi-Ingredient Ointment (Analgesic [place]) 1 addison PRN QID PRN TP MUSCLE PAIN 11/25/20 18:00 Al Hydroxide/Mg Hydroxide (Mylanta Plus Xs) 15 ml PRN AFTMEALHC PRN PO DYSPEPSIA 11/25/20 18:00 12/10/20 18:52 Magnesium Hydroxide (Milk Of Magnesia) 2,400 mg PRN QHS PRN PO CONSTIPATION 11/25/20 18:00 12/13/20 08:36 Amlodipine Besylate (Norvasc) 10 mg DAILY PO 11/26/20 09:00 01/10/21 09:00 Aspirin (Aspirin Chewable) 81 mg DAILY PO 11/26/20 09:00 01/10/21 09:00 Carvedilol (Coreg) 6.25 mg BIDWMEALS PO 11/25/20 18:30 01/10/21 17:07 Lisinopril (Prinivil) 10 mg DAILY PO 11/26/20 09:00 11/26/20 16:16 DC Quetiapine Fumarate (SEROquel) 25 mg QHS PO 11/25/20 21:00 12/23/20 17:23 DC 12/22/20 20:04 Tamsulosin HCl (Flomax) 0.4 mg DAILY PO 11/26/20 09:00 01/10/21 09:00 Amoxicillin (Amoxil) 500 mg [id number] PO 11/25/20 21:00 12/02/20 14:01 DC 12/02/20 14:15 Atorvastatin Calcium (Lipitor) 40 mg QHS PO 11/25/20 21:00 01/10/21 19:51 Folic Acid (Folic Acid) 1 mg DAILY PO 11/26/20 09:00 01/10/21 09:00 Lidocaine (Lidoderm) 1 patch DAILY TD 11/26/20 09:00 01/10/21 09:00 Multivitamins/ Calcium (Thera-M Plus) 1 tab DAILY PO 11/26/20 09:00 01/10/21 09:00 Thiamine HCl (Vitamin B-1) 100 mg BID PO 11/25/20 21:00 01/10/21 19:51 Olanzapine (ZyPREXA ZYDIS) 2.5 mg PRN Q2HR PRN PO PSYCHOSIS 11/25/20 21:15 01/08/21 20:11 Trazodone HCl (Desyrel) 50 mg PRN QHS PRN PO INSOMNIA, MAY REPEAT IN 1HR 11/25/20 21:15 01/03/21 16:48 DC 01/03/21 02:21 Mirtazapine (Remeron) 7.5 mg QHS PO 11/26/20 21:00 11/28/20 12:23 DC 11/27/20 20:00 Lactobacillus Rhamnosus (Culturelle) 1 cap BID PO 11/27/20 09:00 01/10/21 19:51 Sertraline HCl (Zoloft) 25 mg DAILY PO 11/28/20 09:00 11/30/20 09:01 DC 11/30/20 08:39 Sertraline HCl (Zoloft) 50 mg DAILY PO 12/01/20 09:00 12/03/20 11:00 DC 12/03/20 08:05 Mirtazapine (Remeron) 15 mg QHS PO 11/28/20 21:00 11/29/20 18:47 DC 11/28/20 19:38 Hydroxyzine HCl (Atarax) 25 mg PRN Q2HR PRN PO ABDOMINAL CRAMPS 11/28/20 21:45 01/10/21 17:06 Lorazepam (Ativan) 0.5 mg PRN Q4HRS PRN PO ANXIETY / AGITATION 11/28/20 21:45 11/29/20 21:45 DC Amitriptyline HCl (Elavil) 25 mg QHS PO 11/29/20 21:00 12/23/20 17:23 DC 12/22/20 20:04 Melatonin (Melatonin) 3 mg QHS PO 11/29/20 21:00 01/10/21 19:51 Sertraline HCl (Zoloft) 75 mg DAILY PO 12/04/20 09:00 01/10/21 09:00 Divalproex Sodium (Depakote Er) 500 mg QHS PO 12/02/20 21:00 12/05/20 12:29 DC 12/04/20 20:08 Divalproex Sodium (Depakote Er) 1,000 mg QHS PO 12/05/20 21:00 01/10/21 19:51 Quetiapine Fumarate (SEROquel) 12.5 mg DAILY PO 12/17/20 09:00 12/18/20 16:46 DC 12/18/20 08:01 Quetiapine Fumarate (SEROquel) 12.5 mg [id number] PO 12/19/20 09:00 12/23/20 17:23 DC 12/23/20 13:28 Quetiapine Fumarate (SEROquel) 25 mg TID PO 12/23/20 17:30 01/08/21 16:44 DC 01/08/21 12:48 Amitriptyline HCl (Elavil) 50 mg QHS PO 12/23/20 21:00 01/10/21 19:51 Furosemide (Lasix) 80 mg 1X ONCE PO 12/30/20 16:30 12/30/20 16:31 DC 12/30/20 16:27 Trazodone HCl (Desyrel) 100 mg QHS PO 01/03/21 21:00 01/10/21 19:52 Trazodone HCl (Desyrel) 100 mg PRN QHS PRN PO INSOMNIA, 01/03/21 17:00 01/09/21 22:16 Lactic Acid (Lac-Hydrin) 1 addison BID TP 01/07/21 21:00 01/10/21 19:52 Quetiapine Fumarate (SEROquel) 37.5 mg TID PO 01/08/21 21:00 01/10/21 19:52 I have reviewed the current psychotropics carefully including drug interactions. Risk benefit ratio favors no change other than as noted in my dictated progress note. Diagnosis: Problems: (1) Major neurocognitive disorder (2) Impulse control disorder, unspecified (3) Anxiety disorder, unspecified (4) Dementia, vascular, with depression (5) Dementia, vascular, with delusions (6) Dementia in Alzheimer's disease with depression (7) Dementia in Alzheimer's disease with delusions (8) Dementia of the Alzheimer's type with early onset with behavioral disturbance DONA BOTELLO MD Jan 10, 2021 21:25
--- NOTE | 2021-01-10 21:26 | NUR ---
Nursing Note: Pt wandering in hallway at shift change. Pt pleasantly confused, disorganized, and interactive, still believes that he is here to work. Pt cooperative with assessment and compliant with medications administered whole.
--- NOTE | 2021-01-10 21:26 | PDOC ---
Exam Note: Ugs Note: Please also refer to the separate dictated note~for this date of service dictated separately.~Patient seen individually. Discussed the patient with Nursing staff reviewed the chart.~Reviewed interim history and current functioning. Reviewed vital signs,~Labs/ Radiology~and current medications noted below. Continue current treatment with the changes noted in the dictated addendum note Assessment: Vital Signs/I&O: Vital Signs Date Time Temp Pulse Resp B/P (MAP) Pulse Ox O2 Delivery O2 Flow Rate FiO2 01/10/21 17:07 71 129/80 01/10/21 16:22 97.4 16 97 01/10/21 05:59 Room Air I & O 01/09/21 01/09/21 01/10/21 15:00 23:00 07:00 Intake Total 600 ml 480 ml 120 ml Balance 600 ml 480 ml 120 ml Current Medications: Meds: Current Medications Medications (Trade) Dose Ordered Sig/Evaristo Route PRN Reason Start Time Stop Time Status Last Admin Dose Admin Acetaminophen (Tylenol) 650 mg PRN Q6HRS PRN PO MILD PAIN / TEMP > 100.3'F 11/25/20 18:00 01/08/21 17:35 Multi-Ingredient Ointment (Analgesic [place]) 1 addison PRN QID PRN TP MUSCLE PAIN 11/25/20 18:00 Al Hydroxide/Mg Hydroxide (Mylanta Plus Xs) 15 ml PRN AFTMEALHC PRN PO DYSPEPSIA 11/25/20 18:00 12/10/20 18:52 Magnesium Hydroxide (Milk Of Magnesia) 2,400 mg PRN QHS PRN PO CONSTIPATION 11/25/20 18:00 12/13/20 08:36 Amlodipine Besylate (Norvasc) 10 mg DAILY PO 11/26/20 09:00 01/10/21 09:00 Aspirin (Aspirin Chewable) 81 mg DAILY PO 11/26/20 09:00 01/10/21 09:00 Carvedilol (Coreg) 6.25 mg BIDWMEALS PO 11/25/20 18:30 01/10/21 17:07 Lisinopril (Prinivil) 10 mg DAILY PO 11/26/20 09:00 11/26/20 16:16 DC Quetiapine Fumarate (SEROquel) 25 mg QHS PO 11/25/20 21:00 12/23/20 17:23 DC 12/22/20 20:04 Tamsulosin HCl (Flomax) 0.4 mg DAILY PO 11/26/20 09:00 01/10/21 09:00 Amoxicillin (Amoxil) 500 mg [id number] PO 11/25/20 21:00 12/02/20 14:01 DC 12/02/20 14:15 Atorvastatin Calcium (Lipitor) 40 mg QHS PO 11/25/20 21:00 01/10/21 19:51 Folic Acid (Folic Acid) 1 mg DAILY PO 11/26/20 09:00 01/10/21 09:00 Lidocaine (Lidoderm) 1 patch DAILY TD 11/26/20 09:00 01/10/21 09:00 Multivitamins/ Calcium (Thera-M Plus) 1 tab DAILY PO 11/26/20 09:00 01/10/21 09:00 Thiamine HCl (Vitamin B-1) 100 mg BID PO 11/25/20 21:00 01/10/21 19:51 Olanzapine (ZyPREXA ZYDIS) 2.5 mg PRN Q2HR PRN PO PSYCHOSIS 11/25/20 21:15 01/08/21 20:11 Trazodone HCl (Desyrel) 50 mg PRN QHS PRN PO INSOMNIA, MAY REPEAT IN 1HR 11/25/20 21:15 01/03/21 16:48 DC 01/03/21 02:21 Mirtazapine (Remeron) 7.5 mg QHS PO 11/26/20 21:00 11/28/20 12:23 DC 11/27/20 20:00 Lactobacillus Rhamnosus (Culturelle) 1 cap BID PO 11/27/20 09:00 01/10/21 19:51 Sertraline HCl (Zoloft) 25 mg DAILY PO 11/28/20 09:00 11/30/20 09:01 DC 11/30/20 08:39 Sertraline HCl (Zoloft) 50 mg DAILY PO 12/01/20 09:00 12/03/20 11:00 DC 12/03/20 08:05 Mirtazapine (Remeron) 15 mg QHS PO 11/28/20 21:00 11/29/20 18:47 DC 11/28/20 19:38 Hydroxyzine HCl (Atarax) 25 mg PRN Q2HR PRN PO ABDOMINAL CRAMPS 11/28/20 21:45 01/10/21 17:06 Lorazepam (Ativan) 0.5 mg PRN Q4HRS PRN PO ANXIETY / AGITATION 11/28/20 21:45 11/29/20 21:45 DC Amitriptyline HCl (Elavil) 25 mg QHS PO 11/29/20 21:00 12/23/20 17:23 DC 12/22/20 20:04 Melatonin (Melatonin) 3 mg QHS PO 11/29/20 21:00 01/10/21 19:51 Sertraline HCl (Zoloft) 75 mg DAILY PO 12/04/20 09:00 01/10/21 09:00 Divalproex Sodium (Depakote Er) 500 mg QHS PO 12/02/20 21:00 12/05/20 12:29 DC 12/04/20 20:08 Divalproex Sodium (Depakote Er) 1,000 mg QHS PO 12/05/20 21:00 01/10/21 19:51 Quetiapine Fumarate (SEROquel) 12.5 mg DAILY PO 12/17/20 09:00 12/18/20 16:46 DC 12/18/20 08:01 Quetiapine Fumarate (SEROquel) 12.5 mg [id number] PO 12/19/20 09:00 12/23/20 17:23 DC 12/23/20 13:28 Quetiapine Fumarate (SEROquel) 25 mg TID PO 12/23/20 17:30 01/08/21 16:44 DC 01/08/21 12:48 Amitriptyline HCl (Elavil) 50 mg QHS PO 12/23/20 21:00 01/10/21 19:51 Furosemide (Lasix) 80 mg 1X ONCE PO 12/30/20 16:30 12/30/20 16:31 DC 12/30/20 16:27 Trazodone HCl (Desyrel) 100 mg QHS PO 01/03/21 21:00 01/10/21 19:52 Trazodone HCl (Desyrel) 100 mg PRN QHS PRN PO INSOMNIA, 01/03/21 17:00 01/09/21 22:16 Lactic Acid (Lac-Hydrin) 1 addison BID TP 01/07/21 21:00 01/10/21 19:52 Quetiapine Fumarate (SEROquel) 37.5 mg TID PO 01/08/21 21:00 01/10/21 19:52 I have reviewed the current psychotropics carefully including drug interactions. Risk benefit ratio favors no change other than as noted in my dictated progress note. Diagnosis: Problems: (1) Major neurocognitive disorder (2) Impulse control disorder, unspecified (3) Anxiety disorder, unspecified (4) Dementia, vascular, with depression (5) Dementia, vascular, with delusions (6) Dementia in Alzheimer's disease with depression (7) Dementia in Alzheimer's disease with delusions (8) Dementia of the Alzheimer's type with early onset with behavioral disturbance DONA BOTELLO MD Jan 10, 2021 21:26
[2021-01-11 05:50] VITALS: BP 145/80
--- NOTE | 2021-01-11 07:45 | PDOC ---
Exam Note: Gus Note: This note is a late entry for 01/10/2021 covers elements not covered in my initial note. Subjective: The patient was seen face to face in the evening of 01/10/2021 with Cm OVIEDO, discussed and reviewed the chart. The patient slept 7-1/2 hours previous night. Overall, he has done well during the day today, but around 4.30 p.m. he was getting more agitated, restless, had to be in the West hallway to reduce stimuli, and did better after that. Review of Systems: No CV, , pulmonary, eye, ENT system symptoms on review. Reliability poor. Mental Status Exam: The patient is oriented to himself. Insight and judgment, recent and remote memory, attention and concentration, fund of knowledge is poor consistent with his diagnosis. Laboratory Data: Reviewed. Impression: Major neurocognitive disorder Alzheimer vascular with delusion, depression, behavioral disturbance. Anxiety disorder unspecified. Impulse control disorder unspecified. Plan: No change from initial note but we may consider increasing Seroquel if agitation resurfaces. Assessment: Vital Signs/I&O: Vital Signs Date Time Temp Pulse Resp B/P (MAP) Pulse Ox O2 Delivery O2 Flow Rate FiO2 01/11/21 05:50 97.4 65 18 145/80 (101) 96 01/10/21 05:59 Room Air I & O 01/10/21 01/10/21 01/11/21 15:00 23:00 07:00 Intake Total 840 ml 780 ml Balance 840 ml 780 ml Current Medications: Meds: Current Medications Medications (Trade) Dose Ordered Sig/Evaristo Route PRN Reason Start Time Stop Time Status Last Admin Dose Admin Acetaminophen (Tylenol) 650 mg PRN Q6HRS PRN PO MILD PAIN / TEMP > 100.3'F 11/25/20 18:00 01/08/21 17:35 Multi-Ingredient Ointment (Analgesic [place]) 1 addison PRN QID PRN TP MUSCLE PAIN 11/25/20 18:00 Al Hydroxide/Mg Hydroxide (Mylanta Plus Xs) 15 ml PRN AFTMEALHC PRN PO DYSPEPSIA 11/25/20 18:00 12/10/20 18:52 Magnesium Hydroxide (Milk Of Magnesia) 2,400 mg PRN QHS PRN PO CONSTIPATION 11/25/20 18:00 12/13/20 08:36 Amlodipine Besylate (Norvasc) 10 mg DAILY PO 11/26/20 09:00 01/10/21 09:00 Aspirin (Aspirin Chewable) 81 mg DAILY PO 11/26/20 09:00 01/10/21 09:00 Carvedilol (Coreg) 6.25 mg BIDWMEALS PO 11/25/20 18:30 01/10/21 17:07 Lisinopril (Prinivil) 10 mg DAILY PO 11/26/20 09:00 11/26/20 16:16 DC Quetiapine Fumarate (SEROquel) 25 mg QHS PO 11/25/20 21:00 12/23/20 17:23 DC 12/22/20 20:04 Tamsulosin HCl (Flomax) 0.4 mg DAILY PO 11/26/20 09:00 01/10/21 09:00 Amoxicillin (Amoxil) 500 mg [id number] PO 11/25/20 21:00 12/02/20 14:01 DC 12/02/20 14:15 Atorvastatin Calcium (Lipitor) 40 mg QHS PO 11/25/20 21:00 01/10/21 19:51 Folic Acid (Folic Acid) 1 mg DAILY PO 11/26/20 09:00 01/10/21 09:00 Lidocaine (Lidoderm) 1 patch DAILY TD 11/26/20 09:00 01/10/21 09:00 Multivitamins/ Calcium (Thera-M Plus) 1 tab DAILY PO 11/26/20 09:00 01/10/21 09:00 Thiamine HCl (Vitamin B-1) 100 mg BID PO 11/25/20 21:00 01/10/21 19:51 Olanzapine (ZyPREXA ZYDIS) 2.5 mg PRN Q2HR PRN PO PSYCHOSIS 11/25/20 21:15 01/08/21 20:11 Trazodone HCl (Desyrel) 50 mg PRN QHS PRN PO INSOMNIA, MAY REPEAT IN 1HR 11/25/20 21:15 01/03/21 16:48 DC 01/03/21 02:21 Mirtazapine (Remeron) 7.5 mg QHS PO 11/26/20 21:00 11/28/20 12:23 DC 11/27/20 20:00 Lactobacillus Rhamnosus (Culturelle) 1 cap BID PO 11/27/20 09:00 01/10/21 19:51 Sertraline HCl (Zoloft) 25 mg DAILY PO 11/28/20 09:00 11/30/20 09:01 DC 11/30/20 08:39 Sertraline HCl (Zoloft) 50 mg DAILY PO 12/01/20 09:00 12/03/20 11:00 DC 12/03/20 08:05 Mirtazapine (Remeron) 15 mg QHS PO 11/28/20 21:00 11/29/20 18:47 DC 11/28/20 19:38 Hydroxyzine HCl (Atarax) 25 mg PRN Q2HR PRN PO ABDOMINAL CRAMPS 11/28/20 21:45 01/10/21 17:06 Lorazepam (Ativan) 0.5 mg PRN Q4HRS PRN PO ANXIETY / AGITATION 11/28/20 21:45 11/29/20 21:45 DC Amitriptyline HCl (Elavil) 25 mg QHS PO 11/29/20 21:00 12/23/20 17:23 DC 12/22/20 20:04 Melatonin (Melatonin) 3 mg QHS PO 11/29/20 21:00 01/10/21 19:51 Sertraline HCl (Zoloft) 75 mg DAILY PO 12/04/20 09:00 01/10/21 09:00 Divalproex Sodium (Depakote Er) 500 mg QHS PO 12/02/20 21:00 12/05/20 12:29 DC 12/04/20 20:08 Divalproex Sodium (Depakote Er) 1,000 mg QHS PO 12/05/20 21:00 01/10/21 19:51 Quetiapine Fumarate (SEROquel) 12.5 mg DAILY PO 12/17/20 09:00 12/18/20 16:46 DC 12/18/20 08:01 Quetiapine Fumarate (SEROquel) 12.5 mg [id number] PO 12/19/20 09:00 12/23/20 17:23 DC 12/23/20 13:28 Quetiapine Fumarate (SEROquel) 25 mg TID PO 12/23/20 17:30 01/08/21 16:44 DC 01/08/21 12:48 Amitriptyline HCl (Elavil) 50 mg QHS PO 12/23/20 21:00 01/10/21 19:51 Furosemide (Lasix) 80 mg 1X ONCE PO 12/30/20 16:30 12/30/20 16:31 DC 12/30/20 16:27 Trazodone HCl (Desyrel) 100 mg QHS PO 01/03/21 21:00 01/10/21 19:52 Trazodone HCl (Desyrel) 100 mg PRN QHS PRN PO INSOMNIA, 01/03/21 17:00 01/09/21 22:16 Lactic Acid (Lac-Hydrin) 1 addison BID TP 01/07/21 21:00 01/10/21 19:52 Quetiapine Fumarate (SEROquel) 37.5 mg TID PO 01/08/21 21:00 01/10/21 19:52 I have reviewed the current psychotropics carefully including drug interactions. Risk benefit ratio favors no change other than as noted in my dictated progress note. Diagnosis: Problems: (1) Major neurocognitive disorder (2) Impulse control disorder, unspecified (3) Anxiety disorder, unspecified (4) Dementia, vascular, with depression (5) Dementia, vascular, with delusions (6) Dementia in Alzheimer's disease with depression (7) Dementia in Alzheimer's disease with delusions (8) Dementia of the Alzheimer's type with early onset with behavioral disturbance DONA BOTELLO MD Jan 11, 2021 07:45
--- NOTE | 2021-01-11 10:00 | NUR ---
MARY received a voicemail from Ed at [facility] who wanted to let SW know that pt would not be accepted to their unit as they do not feel his behaviors are appropriate for their current milieu.
[2021-01-11] MEDS: LACTOBACILLUS RHAMNOSUS GG 1 CAPSULE. PO SCH ×2 (10:26→20:34)
[2021-01-11] MEDS: THIAMINE 100 MG TABLET. PO SCH ×2 (10:26→20:34)
[2021-01-11] MEDS: ASPIRIN CHEWABLE 81 MG TABLET. PO SCH (10:27)
[2021-01-11] MEDS: TAMSULOSIN 0.4 MG CAP.ER.24H. PO SCH (10:27)
[2021-01-11] MEDS: MULTIVITAMIN with MINERAL TABLET. PO SCH (10:27)
[2021-01-11] MEDS: FOLIC ACID 1 MG TABLET PO SCH (10:27)
[2021-01-11] MEDS: SERTRALINE 25 MG TABLET. PO SCH (10:27)
[2021-01-11] MEDS: CARVEDILOL 6.25 MG TABLET PO SCH ×2 (10:27→17:52)
[2021-01-11] MEDS: QUEtiapine 25 MG TABLET. PO SCH ×3 (10:28→20:31)
[2021-01-11] MEDS: amLODIPine BESYLATE 10 MG TABLET PO SCH (10:28)
[2021-01-11] MEDS: LIDOCAINE (700MG/PATCH) PATCH. TD SCH (10:28)
[2021-01-11] MEDS: AMMONIUM LACTATE 12% TOPICAL LOTION 226GM BOTTLE. TP SCH ×2 (10:28→20:38)
--- NOTE | 2021-01-11 15:30 | NUR ---
Patient is agitated and combative with staff after staff him and a female patient that were walking into his room together and holding hands. Patient escorted to [facility] and provided prn medication per eMAR. Will continue to monitor and report to oncoming shift.
[2021-01-11] MEDS: hydrOXYzine HCL 25 MG TABLET PO PRN (15:34)
[2021-01-11 16:53] VITALS: BP 142/85
[2021-01-11] MEDS: DIVALPROEX ER 500 MG TAB.ER.24H PO SCH (20:34)
[2021-01-11] MEDS: AMITRIPTYLINE HCL 50 MG TABLET PO SCH (20:34)
[2021-01-11] MEDS: ATORVASTATIN CALCIUM 20 MG TABLET PO SCH (20:34)
[2021-01-11] MEDS: MELATONIN 3 MG TABLET PO SCH (20:34)
[2021-01-11] MEDS: traZODone 100 MG TABLET. PO SCH (20:34)
--- NOTE | 2021-01-11 21:08 | PDOC ---
Exam Note: Gus Note: Please also refer to the separate dictated note~for this date of service dictated separately.~Patient seen individually. Discussed the patient with Nursing staff reviewed the chart.~Reviewed interim history and current functioning. Reviewed vital signs,~Labs/ Radiology~and current medications noted below. Continue current treatment with the changes noted in the dictated addendum note Assessment: Vital Signs/I&O: Vital Signs Date Time Temp Pulse Resp B/P (MAP) Pulse Ox O2 Delivery O2 Flow Rate FiO2 01/11/21 17:52 85 142/85 01/11/21 16:53 96.8 18 98 01/10/21 05:59 Room Air I & O 01/10/21 01/10/21 01/11/21 15:00 23:00 07:00 Intake Total 840 ml 780 ml Balance 840 ml 780 ml Current Medications: Meds: Current Medications Medications (Trade) Dose Ordered Sig/Evaristo Route PRN Reason Start Time Stop Time Status Last Admin Dose Admin Acetaminophen (Tylenol) 650 mg PRN Q6HRS PRN PO MILD PAIN / TEMP > 100.3'F 11/25/20 18:00 01/08/21 17:35 Multi-Ingredient Ointment (Analgesic [place]) 1 addison PRN QID PRN TP MUSCLE PAIN 11/25/20 18:00 Al Hydroxide/Mg Hydroxide (Mylanta Plus Xs) 15 ml PRN AFTMEALHC PRN PO DYSPEPSIA 11/25/20 18:00 12/10/20 18:52 Magnesium Hydroxide (Milk Of Magnesia) 2,400 mg PRN QHS PRN PO CONSTIPATION 11/25/20 18:00 12/13/20 08:36 Amlodipine Besylate (Norvasc) 10 mg DAILY PO 11/26/20 09:00 01/11/21 10:28 Aspirin (Aspirin Chewable) 81 mg DAILY PO 11/26/20 09:00 01/11/21 10:27 Carvedilol (Coreg) 6.25 mg BIDWMEALS PO 11/25/20 18:30 01/11/21 17:52 Lisinopril (Prinivil) 10 mg DAILY PO 11/26/20 09:00 11/26/20 16:16 DC Quetiapine Fumarate (SEROquel) 25 mg QHS PO 11/25/20 21:00 12/23/20 17:23 DC 12/22/20 20:04 Tamsulosin HCl (Flomax) 0.4 mg DAILY PO 11/26/20 09:00 01/11/21 10:27 Amoxicillin (Amoxil) 500 mg [id number] PO 11/25/20 21:00 12/02/20 14:01 DC 12/02/20 14:15 Atorvastatin Calcium (Lipitor) 40 mg QHS PO 11/25/20 21:00 01/11/21 20:34 Folic Acid (Folic Acid) 1 mg DAILY PO 11/26/20 09:00 01/11/21 10:27 Lidocaine (Lidoderm) 1 patch DAILY TD 11/26/20 09:00 01/11/21 10:28 Multivitamins/ Calcium (Thera-M Plus) 1 tab DAILY PO 11/26/20 09:00 01/11/21 10:27 Thiamine HCl (Vitamin B-1) 100 mg BID PO 11/25/20 21:00 01/11/21 20:34 Olanzapine (ZyPREXA ZYDIS) 2.5 mg PRN Q2HR PRN PO PSYCHOSIS 11/25/20 21:15 01/08/21 20:11 Trazodone HCl (Desyrel) 50 mg PRN QHS PRN PO INSOMNIA, MAY REPEAT IN 1HR 11/25/20 21:15 01/03/21 16:48 DC 01/03/21 02:21 Mirtazapine (Remeron) 7.5 mg QHS PO 11/26/20 21:00 11/28/20 12:23 DC 11/27/20 20:00 Lactobacillus Rhamnosus (Culturelle) 1 cap BID PO 11/27/20 09:00 01/11/21 20:34 Sertraline HCl (Zoloft) 25 mg DAILY PO 11/28/20 09:00 11/30/20 09:01 DC 11/30/20 08:39 Sertraline HCl (Zoloft) 50 mg DAILY PO 12/01/20 09:00 12/03/20 11:00 DC 12/03/20 08:05 Mirtazapine (Remeron) 15 mg QHS PO 11/28/20 21:00 11/29/20 18:47 DC 11/28/20 19:38 Hydroxyzine HCl (Atarax) 25 mg PRN Q2HR PRN PO ABDOMINAL CRAMPS 11/28/20 21:45 01/11/21 15:34 Lorazepam (Ativan) 0.5 mg PRN Q4HRS PRN PO ANXIETY / AGITATION 11/28/20 21:45 11/29/20 21:45 DC Amitriptyline HCl (Elavil) 25 mg QHS PO 11/29/20 21:00 12/23/20 17:23 DC 12/22/20 20:04 Melatonin (Melatonin) 3 mg QHS PO 11/29/20 21:00 01/11/21 20:34 Sertraline HCl (Zoloft) 75 mg DAILY PO 12/04/20 09:00 01/11/21 10:27 Divalproex Sodium (Depakote Er) 500 mg QHS PO 12/02/20 21:00 12/05/20 12:29 DC 12/04/20 20:08 Divalproex Sodium (Depakote Er) 1,000 mg QHS PO 12/05/20 21:00 01/11/21 20:34 Quetiapine Fumarate (SEROquel) 12.5 mg DAILY PO 12/17/20 09:00 12/18/20 16:46 DC 12/18/20 08:01 Quetiapine Fumarate (SEROquel) 12.5 mg [id number] PO 12/19/20 09:00 12/23/20 17:23 DC 12/23/20 13:28 Quetiapine Fumarate (SEROquel) 25 mg TID PO 12/23/20 17:30 01/08/21 16:44 DC 01/08/21 12:48 Amitriptyline HCl (Elavil) 50 mg QHS PO 12/23/20 21:00 01/11/21 20:34 Furosemide (Lasix) 80 mg 1X ONCE PO 12/30/20 16:30 12/30/20 16:31 DC 12/30/20 16:27 Trazodone HCl (Desyrel) 100 mg QHS PO 01/03/21 21:00 01/11/21 20:34 Trazodone HCl (Desyrel) 100 mg PRN QHS PRN PO INSOMNIA, 01/03/21 17:00 01/09/21 22:16 Lactic Acid (Lac-Hydrin) 1 addison BID TP 01/07/21 21:00 01/11/21 20:38 Quetiapine Fumarate (SEROquel) 37.5 mg TID PO 01/08/21 21:00 01/11/21 20:31 I have reviewed the current psychotropics carefully including drug interactions. Risk benefit ratio favors no change other than as noted in my dictated progress note. Diagnosis: Problems: (1) Major neurocognitive disorder (2) Impulse control disorder, unspecified (3) Anxiety disorder, unspecified (4) Dementia, vascular, with depression (5) Dementia, vascular, with delusions (6) Dementia in Alzheimer's disease with depression (7) Dementia in Alzheimer's disease with delusions (8) Dementia of the Alzheimer's type with early onset with behavioral disturbance DONA BOTELLO MD Jan 11, 2021 21:08
--- NOTE | 2021-01-11 22:46 | NUR ---
Nursing Note Pt is walking the unit with peers in a sort of pack. They all seem to be talking together but none of them make sense. All are talking individually pleasant and cooperative. Pt is talking about work related topics, finding his tools, looking for his work truck. Tells me about how he's in overtime tonight, and is looking for the exit. Pt just has constant walking and talking.
[2021-01-12 06:16] VITALS: BP 168/98
--- NOTE | 2021-01-12 08:06 | PDOC ---
Exam Note: Gus Note: This note is a late entry for 01/11/2021 covers elements not covered in my initial note. Subjective: The patient was seen face to face in the evening of 01/11/2021 with Cm OIVEDO, discussed and reviewed the chart. The patient slept 7-1/2 hours previous night. The patient did well till about 3 p.m., then went into the room of another demented patient who he considers to be his . He was agitated, restless. He did redirect. Received Atarax with relief. Review of Systems: No CV, , pulmonary, eye, ENT system symptoms on review. Reliability poor. Mental Status Exam: The patient is oriented to himself. Insight and judgment, recent and remote memory, attention and concentration, fund of knowledge is poor consistent with his diagnosis. Laboratory Data: Reviewed. Impression: Major neurocognitive disorder Alzheimer vascular with delusion, depression, behavioral disturbance. Anxiety disorder unspecified. Impulse control disorder unspecified. Plan: No change from initial note. Assessment: Vital Signs/I&O: Vital Signs Date Time Temp Pulse Resp B/P (MAP) Pulse Ox O2 Delivery O2 Flow Rate FiO2 01/12/21 06:16 96.8 69 20 168/98 (121) 99 01/10/21 05:59 Room Air I & O 01/11/21 01/11/21 01/12/21 15:00 23:00 07:00 Intake Total 360 ml 360 ml Balance 360 ml 360 ml Current Medications: Meds: Current Medications Medications (Trade) Dose Ordered Sig/Evaristo Route PRN Reason Start Time Stop Time Status Last Admin Dose Admin Acetaminophen (Tylenol) 650 mg PRN Q6HRS PRN PO MILD PAIN / TEMP > 100.3'F 11/25/20 18:00 01/08/21 17:35 Multi-Ingredient Ointment (Analgesic [place]) 1 addison PRN QID PRN TP MUSCLE PAIN 11/25/20 18:00 Al Hydroxide/Mg Hydroxide (Mylanta Plus Xs) 15 ml PRN AFTMEALHC PRN PO DYSPEPSIA 11/25/20 18:00 12/10/20 18:52 Magnesium Hydroxide (Milk Of Magnesia) 2,400 mg PRN QHS PRN PO CONSTIPATION 11/25/20 18:00 12/13/20 08:36 Amlodipine Besylate (Norvasc) 10 mg DAILY PO 11/26/20 09:00 01/11/21 10:28 Aspirin (Aspirin Chewable) 81 mg DAILY PO 11/26/20 09:00 01/11/21 10:27 Carvedilol (Coreg) 6.25 mg BIDWMEALS PO 11/25/20 18:30 01/11/21 17:52 Lisinopril (Prinivil) 10 mg DAILY PO 11/26/20 09:00 11/26/20 16:16 DC Quetiapine Fumarate (SEROquel) 25 mg QHS PO 11/25/20 21:00 12/23/20 17:23 DC 12/22/20 20:04 Tamsulosin HCl (Flomax) 0.4 mg DAILY PO 11/26/20 09:00 01/11/21 10:27 Amoxicillin (Amoxil) 500 mg [id number] PO 11/25/20 21:00 12/02/20 14:01 DC 12/02/20 14:15 Atorvastatin Calcium (Lipitor) 40 mg QHS PO 11/25/20 21:00 01/11/21 20:34 Folic Acid (Folic Acid) 1 mg DAILY PO 11/26/20 09:00 01/11/21 10:27 Lidocaine (Lidoderm) 1 patch DAILY TD 11/26/20 09:00 01/11/21 10:28 Multivitamins/ Calcium (Thera-M Plus) 1 tab DAILY PO 11/26/20 09:00 01/11/21 10:27 Thiamine HCl (Vitamin B-1) 100 mg BID PO 11/25/20 21:00 01/11/21 20:34 Olanzapine (ZyPREXA ZYDIS) 2.5 mg PRN Q2HR PRN PO PSYCHOSIS 11/25/20 21:15 01/08/21 20:11 Trazodone HCl (Desyrel) 50 mg PRN QHS PRN PO INSOMNIA, MAY REPEAT IN 1HR 11/25/20 21:15 01/03/21 16:48 DC 01/03/21 02:21 Mirtazapine (Remeron) 7.5 mg QHS PO 11/26/20 21:00 11/28/20 12:23 DC 11/27/20 20:00 Lactobacillus Rhamnosus (Culturelle) 1 cap BID PO 11/27/20 09:00 01/11/21 20:34 Sertraline HCl (Zoloft) 25 mg DAILY PO 11/28/20 09:00 11/30/20 09:01 DC 11/30/20 08:39 Sertraline HCl (Zoloft) 50 mg DAILY PO 12/01/20 09:00 12/03/20 11:00 DC 12/03/20 08:05 Mirtazapine (Remeron) 15 mg QHS PO 11/28/20 21:00 11/29/20 18:47 DC 11/28/20 19:38 Hydroxyzine HCl (Atarax) 25 mg PRN Q2HR PRN PO ABDOMINAL CRAMPS 11/28/20 21:45 01/11/21 15:34 Lorazepam (Ativan) 0.5 mg PRN Q4HRS PRN PO ANXIETY / AGITATION 11/28/20 21:45 11/29/20 21:45 DC Amitriptyline HCl (Elavil) 25 mg QHS PO 11/29/20 21:00 12/23/20 17:23 DC 12/22/20 20:04 Melatonin (Melatonin) 3 mg QHS PO 11/29/20 21:00 01/11/21 20:34 Sertraline HCl (Zoloft) 75 mg DAILY PO 12/04/20 09:00 01/11/21 10:27 Divalproex Sodium (Depakote Er) 500 mg QHS PO 12/02/20 21:00 12/05/20 12:29 DC 12/04/20 20:08 Divalproex Sodium (Depakote Er) 1,000 mg QHS PO 12/05/20 21:00 01/11/21 20:34 Quetiapine Fumarate (SEROquel) 12.5 mg DAILY PO 12/17/20 09:00 12/18/20 16:46 DC 12/18/20 08:01 Quetiapine Fumarate (SEROquel) 12.5 mg [id number] PO 12/19/20 09:00 12/23/20 17:23 DC 12/23/20 13:28 Quetiapine Fumarate (SEROquel) 25 mg TID PO 12/23/20 17:30 01/08/21 16:44 DC 01/08/21 12:48 Amitriptyline HCl (Elavil) 50 mg QHS PO 12/23/20 21:00 01/11/21 20:34 Furosemide (Lasix) 80 mg 1X ONCE PO 12/30/20 16:30 12/30/20 16:31 DC 12/30/20 16:27 Trazodone HCl (Desyrel) 100 mg QHS PO 01/03/21 21:00 01/11/21 20:34 Trazodone HCl (Desyrel) 100 mg PRN QHS PRN PO INSOMNIA, 01/03/21 17:00 01/09/21 22:16 Lactic Acid (Lac-Hydrin) 1 addison BID TP 01/07/21 21:00 01/11/21 20:38 Quetiapine Fumarate (SEROquel) 37.5 mg TID PO 01/08/21 21:00 01/11/21 20:31 I have reviewed the current psychotropics carefully including drug interactions. Risk benefit ratio favors no change other than as noted in my dictated progress note. Diagnosis: Problems: (1) Major neurocognitive disorder (2) Impulse control disorder, unspecified (3) Anxiety disorder, unspecified (4) Dementia, vascular, with depression (5) Dementia, vascular, with delusions (6) Dementia in Alzheimer's disease with depression (7) Dementia in Alzheimer's disease with delusions (8) Dementia of the Alzheimer's type with early onset with behavioral disturbance DONA BOTELLO MD Jan 12, 2021 08:06
[2021-01-12] MEDS: amLODIPine BESYLATE 10 MG TABLET PO SCH (11:13)
[2021-01-12] MEDS: FOLIC ACID 1 MG TABLET PO SCH (11:13)
[2021-01-12] MEDS: CARVEDILOL 6.25 MG TABLET PO SCH ×2 (11:13→17:10)
[2021-01-12] MEDS: SERTRALINE 25 MG TABLET. PO SCH (11:23)
[2021-01-12] MEDS: THIAMINE 100 MG TABLET. PO SCH ×2 (11:24→19:56)
[2021-01-12] MEDS: LACTOBACILLUS RHAMNOSUS GG 1 CAPSULE. PO SCH ×2 (11:24→19:54)
[2021-01-12] MEDS: ASPIRIN CHEWABLE 81 MG TABLET. PO SCH (11:24)
[2021-01-12] MEDS: QUEtiapine 25 MG TABLET. PO SCH ×3 (11:24→19:55)
[2021-01-12] MEDS: MULTIVITAMIN with MINERAL TABLET. PO SCH (11:24)
[2021-01-12] MEDS: TAMSULOSIN 0.4 MG CAP.ER.24H. PO SCH (11:24)
[2021-01-12] MEDS: LIDOCAINE (700MG/PATCH) PATCH. TD SCH (11:25)
[2021-01-12] MEDS: AMMONIUM LACTATE 12% TOPICAL LOTION 226GM BOTTLE. TP SCH ×2 (11:25→19:55)
--- NOTE | 2021-01-12 14:11 | NUR ---
MARY has been emailing pt guardian to let her know that facilities have denied all referrals sent out last week. MARY will have to send out more with an increased search area outside of [place]. MARY also went over pt Medicare days and informed her that pt is in his Lifetime reserve days. MARY attached the needed form for signature and asked that if pt guardian had any questions to call MARY.
[2021-01-12 16:10] VITALS: BP 113/75
[2021-01-12] MEDS: DIVALPROEX ER 500 MG TAB.ER.24H PO SCH (19:54)
[2021-01-12] MEDS: traZODone 100 MG TABLET. PO SCH (19:55)
[2021-01-12] MEDS: MELATONIN 3 MG TABLET PO SCH (19:55)
[2021-01-12] MEDS: ATORVASTATIN CALCIUM 20 MG TABLET PO SCH (19:55)
[2021-01-12] MEDS: AMITRIPTYLINE HCL 50 MG TABLET PO SCH (19:55)
--- NOTE | 2021-01-12 21:07 | PDOC ---
Exam Note: Gus Note: Please also refer to the separate dictated note~for this date of service dictated separately.~Patient seen individually. Discussed the patient with Nursing staff reviewed the chart.~Reviewed interim history and current functioning. Reviewed vital signs,~Labs/ Radiology~and current medications noted below. Continue current treatment with the changes noted in the dictated addendum note Assessment: Vital Signs/I&O: Vital Signs Date Time Temp Pulse Resp B/P (MAP) Pulse Ox O2 Delivery O2 Flow Rate FiO2 01/12/21 17:10 85 113/75 01/12/21 16:10 97.1 16 98 01/10/21 05:59 Room Air I & O 01/11/21 01/11/21 01/12/21 14:59 22:59 06:59 Intake Total 360 ml 360 ml Balance 360 ml 360 ml Current Medications: Meds: Current Medications Medications (Trade) Dose Ordered Sig/Evaristo Route PRN Reason Start Time Stop Time Status Last Admin Dose Admin Acetaminophen (Tylenol) 650 mg PRN Q6HRS PRN PO MILD PAIN / TEMP > 100.3'F 11/25/20 18:00 01/08/21 17:35 Multi-Ingredient Ointment (Analgesic [place]) 1 addison PRN QID PRN TP MUSCLE PAIN 11/25/20 18:00 Al Hydroxide/Mg Hydroxide (Mylanta Plus Xs) 15 ml PRN AFTMEALHC PRN PO DYSPEPSIA 11/25/20 18:00 12/10/20 18:52 Magnesium Hydroxide (Milk Of Magnesia) 2,400 mg PRN QHS PRN PO CONSTIPATION 11/25/20 18:00 12/13/20 08:36 Amlodipine Besylate (Norvasc) 10 mg DAILY PO 11/26/20 09:00 01/12/21 11:13 Aspirin (Aspirin Chewable) 81 mg DAILY PO 11/26/20 09:00 01/12/21 11:24 Carvedilol (Coreg) 6.25 mg BIDWMEALS PO 11/25/20 18:30 01/12/21 17:10 Lisinopril (Prinivil) 10 mg DAILY PO 11/26/20 09:00 11/26/20 16:16 DC Quetiapine Fumarate (SEROquel) 25 mg QHS PO 11/25/20 21:00 12/23/20 17:23 DC 12/22/20 20:04 Tamsulosin HCl (Flomax) 0.4 mg DAILY PO 11/26/20 09:00 01/12/21 11:24 Amoxicillin (Amoxil) 500 mg [id number] PO 11/25/20 21:00 12/02/20 14:01 DC 12/02/20 14:15 Atorvastatin Calcium (Lipitor) 40 mg QHS PO 11/25/20 21:00 01/12/21 19:55 Folic Acid (Folic Acid) 1 mg DAILY PO 11/26/20 09:00 01/12/21 11:13 Lidocaine (Lidoderm) 1 patch DAILY TD 11/26/20 09:00 01/12/21 11:25 Multivitamins/ Calcium (Thera-M Plus) 1 tab DAILY PO 11/26/20 09:00 01/12/21 11:24 Thiamine HCl (Vitamin B-1) 100 mg BID PO 11/25/20 21:00 01/12/21 19:56 Olanzapine (ZyPREXA ZYDIS) 2.5 mg PRN Q2HR PRN PO PSYCHOSIS 11/25/20 21:15 01/08/21 20:11 Trazodone HCl (Desyrel) 50 mg PRN QHS PRN PO INSOMNIA, MAY REPEAT IN 1HR 11/25/20 21:15 01/03/21 16:48 DC 01/03/21 02:21 Mirtazapine (Remeron) 7.5 mg QHS PO 11/26/20 21:00 11/28/20 12:23 DC 11/27/20 20:00 Lactobacillus Rhamnosus (Culturelle) 1 cap BID PO 11/27/20 09:00 01/12/21 19:54 Sertraline HCl (Zoloft) 25 mg DAILY PO 11/28/20 09:00 11/30/20 09:01 DC 11/30/20 08:39 Sertraline HCl (Zoloft) 50 mg DAILY PO 12/01/20 09:00 12/03/20 11:00 DC 12/03/20 08:05 Mirtazapine (Remeron) 15 mg QHS PO 11/28/20 21:00 11/29/20 18:47 DC 11/28/20 19:38 Hydroxyzine HCl (Atarax) 25 mg PRN Q2HR PRN PO ABDOMINAL CRAMPS 11/28/20 21:45 01/11/21 15:34 Lorazepam (Ativan) 0.5 mg PRN Q4HRS PRN PO ANXIETY / AGITATION 11/28/20 21:45 11/29/20 21:45 DC Amitriptyline HCl (Elavil) 25 mg QHS PO 11/29/20 21:00 12/23/20 17:23 DC 12/22/20 20:04 Melatonin (Melatonin) 3 mg QHS PO 11/29/20 21:00 01/12/21 19:55 Sertraline HCl (Zoloft) 75 mg DAILY PO 12/04/20 09:00 01/12/21 11:23 Divalproex Sodium (Depakote Er) 500 mg QHS PO 12/02/20 21:00 12/05/20 12:29 DC 12/04/20 20:08 Divalproex Sodium (Depakote Er) 1,000 mg QHS PO 12/05/20 21:00 01/12/21 19:54 Quetiapine Fumarate (SEROquel) 12.5 mg DAILY PO 12/17/20 09:00 12/18/20 16:46 DC 12/18/20 08:01 Quetiapine Fumarate (SEROquel) 12.5 mg [id number] PO 12/19/20 09:00 12/23/20 17:23 DC 12/23/20 13:28 Quetiapine Fumarate (SEROquel) 25 mg TID PO 12/23/20 17:30 01/08/21 16:44 DC 01/08/21 12:48 Amitriptyline HCl (Elavil) 50 mg QHS PO 12/23/20 21:00 01/12/21 19:55 Furosemide (Lasix) 80 mg 1X ONCE PO 12/30/20 16:30 12/30/20 16:31 DC 12/30/20 16:27 Trazodone HCl (Desyrel) 100 mg QHS PO 01/03/21 21:00 01/12/21 19:55 Trazodone HCl (Desyrel) 100 mg PRN QHS PRN PO INSOMNIA, 01/03/21 17:00 01/09/21 22:16 Lactic Acid (Lac-Hydrin) 1 addison BID TP 01/07/21 21:00 01/12/21 19:55 Quetiapine Fumarate (SEROquel) 37.5 mg TID PO 01/08/21 21:00 01/12/21 19:55 I have reviewed the current psychotropics carefully including drug interactions. Risk benefit ratio favors no change other than as noted in my dictated progress note. Diagnosis: Problems: (1) Major neurocognitive disorder (2) Impulse control disorder, unspecified (3) Anxiety disorder, unspecified (4) Dementia, vascular, with depression (5) Dementia, vascular, with delusions (6) Dementia in Alzheimer's disease with depression (7) Dementia in Alzheimer's disease with delusions (8) Dementia of the Alzheimer's type with early onset with behavioral disturbance DONA BOTELLO MD Jan 12, 2021 21:07
--- NOTE | 2021-01-12 23:22 | NUR ---
Nursing Note Pt wandering the unit, looking for the door thinks he has to attend a work meeting in the next few minutes. Pt walks with a female peer that he thinks is his spouse. Neither one of them talk in coherent sentences. Pt tries each door handle each time he walks by. Quite delusional looking for the conference room for the boss for his meeting. Easily redirected.
[2021-01-13 05:48] VITALS: BP 175/99
[2021-01-13 07:37] LABS: BASO % 0 % (0-3); EOS # 0.2 x10^3/uL (0.0-0.7); EOS % 4 % (0-3); HEMATOCRIT 41.4 % (39.0-53.0); HEMOGLOBIN 13.6 g/dL (13.0-17.5); LYMPH # 1.5 x10^3/uL (1.0-4.8); LYMPH % 27 % (24-48); MEAN CORPUSCULAR HEMOGLOBIN 30 pg (25-35); MEAN CORPUSCULAR HGB CONC 33 g/dL (31-37); MEAN CORPUSCULAR VOLUME 91 fL (79-100); MONO # 0.6 x10^3/uL (0.0-1.1); MONO % 12 % (0-9); NEUT # 3.1 x10^3uL (1.8-7.7); NEUT % 57 % (31-73); PLATELET COUNT 257 x10^3/uL (140-400); RED BLOOD COUNT 4.56 x10^6/uL (4.30-5.70); RED CELL DISTRIBUTION WIDTH 13.9 % (11.5-14.5); WHITE BLOOD COUNT 5.4 x10^3/uL (4.0-11.0)
[2021-01-13 07:49] LABS: ALBUMIN 3.1 g/dL (3.4-5.0); ALBUMIN/GLOBULIN RATIO 0.8 (1.0-1.7); CALCIUM 8.8 mg/dL (8.5-10.1); GFR 71.5; POTASSIUM 3.8 mmol/L (3.5-5.1); TOTAL BILIRUBIN 0.3 mg/dL (0.2-1.0); TOTAL PROTEIN 6.9 g/dL (6.4-8.2)
[2021-01-13] MEDS: QUEtiapine 25 MG TABLET. PO SCH ×3 (08:05→19:39)
[2021-01-13] MEDS: THIAMINE 100 MG TABLET. PO SCH ×2 (08:05→19:38)
[2021-01-13] MEDS: FOLIC ACID 1 MG TABLET PO SCH (08:05)
[2021-01-13] MEDS: ASPIRIN CHEWABLE 81 MG TABLET. PO SCH (08:05)
[2021-01-13] MEDS: TAMSULOSIN 0.4 MG CAP.ER.24H. PO SCH (08:05)
[2021-01-13] MEDS: CARVEDILOL 6.25 MG TABLET PO SCH ×2 (08:05→16:48)
[2021-01-13] MEDS: LIDOCAINE (700MG/PATCH) PATCH. TD SCH (08:05)
[2021-01-13] MEDS: LACTOBACILLUS RHAMNOSUS GG 1 CAPSULE. PO SCH ×2 (08:05→19:38)
[2021-01-13] MEDS: MULTIVITAMIN with MINERAL TABLET. PO SCH (08:06)
[2021-01-13] MEDS: amLODIPine BESYLATE 10 MG TABLET PO SCH (08:06)
[2021-01-13] MEDS: SERTRALINE 25 MG TABLET. PO SCH (08:07)
--- NOTE | 2021-01-13 08:25 | PDOC ---
Exam Note: Gus Note: This note is a late entry for 01/12/2021 covers elements not covered in my initial note. Subjective: The patient was seen face to face in the evening of 01/12/2021 with Cm OVIEDO, discussed and reviewed the chart. The patient slept 5-1/2 hours previous night. Overall the patient remains confused, tends to attempt to elope from the unit but redirects. Review of Systems: No CV, , pulmonary, eye, ENT system symptoms on review. Reliability poor. Mental Status Exam: The patient is oriented to himself. Insight and judgment, recent and remote memory, attention and concentration, fund of knowledge is poor consistent with his diagnosis. Laboratory Data: Reviewed. Impression: Major neurocognitive disorder Alzheimer vascular with delusion, depression, behavioral disturbance. Anxiety disorder unspecified. Impulse control disorder unspecified. Plan: No change from initial note. Assessment: Vital Signs/I&O: Vital Signs Date Time Temp Pulse Resp B/P (MAP) Pulse Ox O2 Delivery O2 Flow Rate FiO2 01/13/21 08:06 74 175/99 01/13/21 05:48 97.2 22 98 01/10/21 05:59 Room Air I & O 01/12/21 01/12/21 01/13/21 15:00 23:00 07:00 Intake Total 360 ml 200 ml 120 ml Balance 360 ml 200 ml 120 ml Labs: Laboratory Tests Test 01/13/21 07:18 White Blood Count 5.4 x10^3/uL (4.0-11.0) Red Blood Count 4.56 x10^6/uL (4.30-5.70) Hemoglobin 13.6 g/dL (13.0-17.5) Hematocrit 41.4 % (39.0-53.0) Mean Corpuscular Volume 91 fL (79-100) Mean Corpuscular Hemoglobin 30 pg (25-35) Mean Corpuscular Hemoglobin Concent 33 g/dL (31-37) Red Cell Distribution Width 13.9 % (11.5-14.5) Platelet Count 257 x10^3/uL (140-400) Neutrophils (%) (Auto) 57 % (31-73) Lymphocytes (%) (Auto) 27 % (24-48) Monocytes (%) (Auto) 12 % (0-9) H Eosinophils (%) (Auto) 4 % (0-3) H Basophils (%) (Auto) 0 % (0-3) Neutrophils # (Auto) 3.1 x10^3uL (1.8-7.7) Lymphocytes # (Auto) 1.5 x10^3/uL (1.0-4.8) Monocytes # (Auto) 0.6 x10^3/uL (0.0-1.1) Eosinophils # (Auto) 0.2 x10^3/uL (0.0-0.7) Basophils # (Auto) 0.0 x10^3/uL (0.0-0.2) Sodium Level 142 mmol/L (136-145) Potassium Level 3.8 mmol/L (3.5-5.1) Chloride Level 106 mmol/L (98-107) Carbon Dioxide Level 31 mmol/L (21-32) Anion Gap 5 (6-14) L Blood Urea Nitrogen 22 mg/dL (8-26) Creatinine 1.0 mg/dL (0.7-1.3) Estimated GFR (Cockcroft-Gault) 71.5 BUN/Creatinine Ratio 22 (6-20) H Glucose Level 86 mg/dL (70-99) Calcium Level 8.8 mg/dL (8.5-10.1) Total Bilirubin 0.3 mg/dL (0.2-1.0) Aspartate Amino Transferase (AST) 15 U/L (15-37) Alanine Aminotransferase (ALT) 23 U/L (16-63) Alkaline Phosphatase 96 U/L (46-116) Total Protein 6.9 g/dL (6.4-8.2) Albumin 3.1 g/dL (3.4-5.0) L Albumin/Globulin Ratio 0.8 (1.0-1.7) L Current Medications: Meds: Laboratory Tests Test 01/13/21 07:18 White Blood Count 5.4 x10^3/uL Red Blood Count 4.56 x10^6/uL Hemoglobin 13.6 g/dL Hematocrit 41.4 % Mean Corpuscular Volume 91 fL Mean Corpuscular Hemoglobin 30 pg Mean Corpuscular Hemoglobin Concent 33 g/dL Red Cell Distribution Width 13.9 % Platelet Count 257 x10^3/uL Neutrophils (%) (Auto) 57 % Lymphocytes (%) (Auto) 27 % Monocytes (%) (Auto) 12 % Eosinophils (%) (Auto) 4 % Basophils (%) (Auto) 0 % Neutrophils # (Auto) 3.1 x10^3uL Lymphocytes # (Auto) 1.5 x10^3/uL Monocytes # (Auto) 0.6 x10^3/uL Eosinophils # (Auto) 0.2 x10^3/uL Basophils # (Auto) 0.0 x10^3/uL Sodium Level 142 mmol/L Potassium Level 3.8 mmol/L Chloride Level 106 mmol/L Carbon Dioxide Level 31 mmol/L Anion Gap 5 Blood Urea Nitrogen 22 mg/dL Creatinine 1.0 mg/dL Estimated GFR (Cockcroft-Gault) 71.5 BUN/Creatinine Ratio 22 Glucose Level 86 mg/dL Calcium Level 8.8 mg/dL Total Bilirubin 0.3 mg/dL Aspartate Amino Transf (AST/SGOT) 15 U/L Alanine Aminotransferase (ALT/SGPT) 23 U/L Alkaline Phosphatase 96 U/L Total Protein 6.9 g/dL Albumin 3.1 g/dL Albumin/Globulin Ratio 0.8 Current Medications Medications (Trade) Dose Ordered Sig/Evaristo Route PRN Reason Start Time Stop Time Status Last Admin Dose Admin Acetaminophen (Tylenol) 650 mg PRN Q6HRS PRN PO MILD PAIN / TEMP > 100.3'F 11/25/20 18:00 01/08/21 17:35 Multi-Ingredient Ointment (Analgesic [place]) 1 addison PRN QID PRN TP MUSCLE PAIN 11/25/20 18:00 Al Hydroxide/Mg Hydroxide (Mylanta Plus Xs) 15 ml PRN AFTMEALHC PRN PO DYSPEPSIA 11/25/20 18:00 12/10/20 18:52 Magnesium Hydroxide (Milk Of Magnesia) 2,400 mg PRN QHS PRN PO CONSTIPATION 11/25/20 18:00 12/13/20 08:36 Amlodipine Besylate (Norvasc) 10 mg DAILY PO 11/26/20 09:00 01/13/21 08:06 Aspirin (Aspirin Chewable) 81 mg DAILY PO 11/26/20 09:00 01/13/21 08:05 Carvedilol (Coreg) 6.25 mg BIDWMEALS PO 11/25/20 18:30 01/13/21 08:05 Lisinopril (Prinivil) 10 mg DAILY PO 11/26/20 09:00 11/26/20 16:16 DC Quetiapine Fumarate (SEROquel) 25 mg QHS PO 11/25/20 21:00 12/23/20 17:23 DC 12/22/20 20:04 Tamsulosin HCl (Flomax) 0.4 mg DAILY PO 11/26/20 09:00 01/13/21 08:05 Amoxicillin (Amoxil) 500 mg [id number] PO 11/25/20 21:00 12/02/20 14:01 DC 12/02/20 14:15 Atorvastatin Calcium (Lipitor) 40 mg QHS PO 11/25/20 21:00 01/12/21 19:55 Folic Acid (Folic Acid) 1 mg DAILY PO 11/26/20 09:00 01/13/21 08:05 Lidocaine (Lidoderm) 1 patch DAILY TD 11/26/20 09:00 01/13/21 08:05 Multivitamins/ Calcium (Thera-M Plus) 1 tab DAILY PO 11/26/20 09:00 01/13/21 08:06 Thiamine HCl (Vitamin B-1) 100 mg BID PO 11/25/20 21:00 01/13/21 08:05 Olanzapine (ZyPREXA ZYDIS) 2.5 mg PRN Q2HR PRN PO PSYCHOSIS 11/25/20 21:15 01/08/21 20:11 Trazodone HCl (Desyrel) 50 mg PRN QHS PRN PO INSOMNIA, MAY REPEAT IN 1HR 11/25/20 21:15 01/03/21 16:48 DC 01/03/21 02:21 Mirtazapine (Remeron) 7.5 mg QHS PO 11/26/20 21:00 11/28/20 12:23 DC 11/27/20 20:00 Lactobacillus Rhamnosus (Culturelle) 1 cap BID PO 11/27/20 09:00 01/13/21 08:05 Sertraline HCl (Zoloft) 25 mg DAILY PO 11/28/20 09:00 11/30/20 09:01 DC 11/30/20 08:39 Sertraline HCl (Zoloft) 50 mg DAILY PO 12/01/20 09:00 12/03/20 11:00 DC 12/03/20 08:05 Mirtazapine (Remeron) 15 mg QHS PO 11/28/20 21:00 11/29/20 18:47 DC 11/28/20 19:38 Hydroxyzine HCl (Atarax) 25 mg PRN Q2HR PRN PO ABDOMINAL CRAMPS 11/28/20 21:45 01/11/21 15:34 Lorazepam (Ativan) 0.5 mg PRN Q4HRS PRN PO ANXIETY / AGITATION 11/28/20 21:45 11/29/20 21:45 DC Amitriptyline HCl (Elavil) 25 mg QHS PO 11/29/20 21:00 12/23/20 17:23 DC 12/22/20 20:04 Melatonin (Melatonin) 3 mg QHS PO 11/29/20 21:00 01/12/21 19:55 Sertraline HCl (Zoloft) 75 mg DAILY PO 12/04/20 09:00 01/13/21 08:07 Divalproex Sodium (Depakote Er) 500 mg QHS PO 12/02/20 21:00 12/05/20 12:29 DC 12/04/20 20:08 Divalproex Sodium (Depakote Er) 1,000 mg QHS PO 12/05/20 21:00 01/12/21 19:54 Quetiapine Fumarate (SEROquel) 12.5 mg DAILY PO 12/17/20 09:00 12/18/20 16:46 DC 12/18/20 08:01 Quetiapine Fumarate (SEROquel) 12.5 mg [id number] PO 12/19/20 09:00 12/23/20 17:23 DC 12/23/20 13:28 Quetiapine Fumarate (SEROquel) 25 mg TID PO 12/23/20 17:30 01/08/21 16:44 DC 01/08/21 12:48 Amitriptyline HCl (Elavil) 50 mg QHS PO 12/23/20 21:00 01/12/21 19:55 Furosemide (Lasix) 80 mg 1X ONCE PO 12/30/20 16:30 12/30/20 16:31 DC 12/30/20 16:27 Trazodone HCl (Desyrel) 100 mg QHS PO 01/03/21 21:00 01/12/21 19:55 Trazodone HCl (Desyrel) 100 mg PRN QHS PRN PO INSOMNIA, 01/03/21 17:00 01/09/21 22:16 Lactic Acid (Lac-Hydrin) 1 addison BID TP 01/07/21 21:00 01/12/21 19:55 Quetiapine Fumarate (SEROquel) 37.5 mg TID PO 01/08/21 21:00 01/13/21 08:05 I have reviewed the current psychotropics carefully including drug interactions. Risk benefit ratio favors no change other than as noted in my dictated progress note. Diagnosis: Problems: (1) Major neurocognitive disorder (2) Impulse control disorder, unspecified (3) Anxiety disorder, unspecified (4) Dementia, vascular, with depression (5) Dementia, vascular, with delusions (6) Dementia in Alzheimer's disease with depression (7) Dementia in Alzheimer's disease with delusions (8) Dementia of the Alzheimer's type with early onset with behavioral disturbance DONA BOTELLO MD Jan 13, 2021 08:25
[2021-01-13] MEDS: AMMONIUM LACTATE 12% TOPICAL LOTION 226GM BOTTLE. TP SCH ×2 (08:34→19:39)
--- NOTE | 2021-01-13 09:56 | NUR ---
Pt wandering unit this morning. Pt did have an interaction with female peer stating that she was his and became agitated when staff attempted to separate the pts. Pt taken to [facility] where he calmed down on his own. Pt compliant with whole medications. Pt currently wandering unit, exit seeking stating that he needs to leave for work.
--- NOTE | 2021-01-13 10:41 | NUR ---
Pt repeatedly unplugging the air purifier in the hallway. Pt became very agitated with redirection. Staff x5 assisted pt to [facility] where pt was attempting to hit, kick and trip staff. Pt weighted and staff had to carry pt to the [facility]. PRN Zyprexa administered sublingually. Pt currently door checking in [facility].
[2021-01-13 15:34] VITALS: BP 121/74
--- NOTE | 2021-01-13 18:40 | NUR ---
Pt became very agitated and combative with redirection. Pt is delusional thinking another female pt is Harjit. Pt taken to the [facility] with staff assist x4. Pt very combative attempting to hit, kick and trip staff. Scab on pt's left elbow opened upon transfer to [facility]. Foam placed on elbow. PRN Zyprexa administered. Pt in [facility] currently calling out for Harjit.
[2021-01-13] MEDS: DIVALPROEX ER 500 MG TAB.ER.24H PO SCH (19:37)
[2021-01-13] MEDS: AMITRIPTYLINE HCL 50 MG TABLET PO SCH (19:38)
[2021-01-13] MEDS: MELATONIN 3 MG TABLET PO SCH (19:38)
[2021-01-13] MEDS: traZODone 100 MG TABLET. PO SCH (19:38)
[2021-01-13] MEDS: ATORVASTATIN CALCIUM 20 MG TABLET PO SCH (19:38)
--- NOTE | 2021-01-13 20:56 | PDOC ---
Exam Note: Gus Note: Please also refer to the separate dictated note~for this date of service dictated separately.~Patient seen individually. Discussed the patient with Nursing staff reviewed the chart.~Reviewed interim history and current functioning. Reviewed vital signs,~Labs/ Radiology~and current medications noted below. Continue current treatment with the changes noted in the dictated addendum note Assessment: Vital Signs/I&O: Vital Signs Date Time Temp Pulse Resp B/P (MAP) Pulse Ox O2 Delivery O2 Flow Rate FiO2 01/13/21 16:48 77 121/74 01/13/21 15:34 96.5 16 97 01/10/21 05:59 Room Air I & O 01/12/21 01/12/21 01/13/21 14:59 22:59 06:59 Intake Total 360 ml 200 ml 120 ml Balance 360 ml 200 ml 120 ml Labs: Laboratory Tests Test 01/13/21 07:18 White Blood Count 5.4 x10^3/uL (4.0-11.0) Red Blood Count 4.56 x10^6/uL (4.30-5.70) Hemoglobin 13.6 g/dL (13.0-17.5) Hematocrit 41.4 % (39.0-53.0) Mean Corpuscular Volume 91 fL (79-100) Mean Corpuscular Hemoglobin 30 pg (25-35) Mean Corpuscular Hemoglobin Concent 33 g/dL (31-37) Red Cell Distribution Width 13.9 % (11.5-14.5) Platelet Count 257 x10^3/uL (140-400) Neutrophils (%) (Auto) 57 % (31-73) Lymphocytes (%) (Auto) 27 % (24-48) Monocytes (%) (Auto) 12 % (0-9) H Eosinophils (%) (Auto) 4 % (0-3) H Basophils (%) (Auto) 0 % (0-3) Neutrophils # (Auto) 3.1 x10^3uL (1.8-7.7) Lymphocytes # (Auto) 1.5 x10^3/uL (1.0-4.8) Monocytes # (Auto) 0.6 x10^3/uL (0.0-1.1) Eosinophils # (Auto) 0.2 x10^3/uL (0.0-0.7) Basophils # (Auto) 0.0 x10^3/uL (0.0-0.2) Sodium Level 142 mmol/L (136-145) Potassium Level 3.8 mmol/L (3.5-5.1) Chloride Level 106 mmol/L (98-107) Carbon Dioxide Level 31 mmol/L (21-32) Anion Gap 5 (6-14) L Blood Urea Nitrogen 22 mg/dL (8-26) Creatinine 1.0 mg/dL (0.7-1.3) Estimated GFR (Cockcroft-Gault) 71.5 BUN/Creatinine Ratio 22 (6-20) H Glucose Level 86 mg/dL (70-99) Calcium Level 8.8 mg/dL (8.5-10.1) Total Bilirubin 0.3 mg/dL (0.2-1.0) Aspartate Amino Transferase (AST) 15 U/L (15-37) Alanine Aminotransferase (ALT) 23 U/L (16-63) Alkaline Phosphatase 96 U/L (46-116) Total Protein 6.9 g/dL (6.4-8.2) Albumin 3.1 g/dL (3.4-5.0) L Albumin/Globulin Ratio 0.8 (1.0-1.7) L Current Medications: Meds: Laboratory Tests Test 01/13/21 07:18 White Blood Count 5.4 x10^3/uL Red Blood Count 4.56 x10^6/uL Hemoglobin 13.6 g/dL Hematocrit 41.4 % Mean Corpuscular Volume 91 fL Mean Corpuscular Hemoglobin 30 pg Mean Corpuscular Hemoglobin Concent 33 g/dL Red Cell Distribution Width 13.9 % Platelet Count 257 x10^3/uL Neutrophils (%) (Auto) 57 % Lymphocytes (%) (Auto) 27 % Monocytes (%) (Auto) 12 % Eosinophils (%) (Auto) 4 % Basophils (%) (Auto) 0 % Neutrophils # (Auto) 3.1 x10^3uL Lymphocytes # (Auto) 1.5 x10^3/uL Monocytes # (Auto) 0.6 x10^3/uL Eosinophils # (Auto) 0.2 x10^3/uL Basophils # (Auto) 0.0 x10^3/uL Sodium Level 142 mmol/L Potassium Level 3.8 mmol/L Chloride Level 106 mmol/L Carbon Dioxide Level 31 mmol/L Anion Gap 5 Blood Urea Nitrogen 22 mg/dL Creatinine 1.0 mg/dL Estimated GFR (Cockcroft-Gault) 71.5 BUN/Creatinine Ratio 22 Glucose Level 86 mg/dL Calcium Level 8.8 mg/dL Total Bilirubin 0.3 mg/dL Aspartate Amino Transf (AST/SGOT) 15 U/L Alanine Aminotransferase (ALT/SGPT) 23 U/L Alkaline Phosphatase 96 U/L Total Protein 6.9 g/dL Albumin 3.1 g/dL Albumin/Globulin Ratio 0.8 Current Medications Medications (Trade) Dose Ordered Sig/Evaristo Route PRN Reason Start Time Stop Time Status Last Admin Dose Admin Acetaminophen (Tylenol) 650 mg PRN Q6HRS PRN PO MILD PAIN / TEMP > 100.3'F 11/25/20 18:00 01/08/21 17:35 Multi-Ingredient Ointment (Analgesic [place]) 1 addison PRN QID PRN TP MUSCLE PAIN 11/25/20 18:00 Al Hydroxide/Mg Hydroxide (Mylanta Plus Xs) 15 ml PRN AFTMEALHC PRN PO DYSPEPSIA 11/25/20 18:00 12/10/20 18:52 Magnesium Hydroxide (Milk Of Magnesia) 2,400 mg PRN QHS PRN PO CONSTIPATION 11/25/20 18:00 12/13/20 08:36 Amlodipine Besylate (Norvasc) 10 mg DAILY PO 11/26/20 09:00 01/13/21 08:06 Aspirin (Aspirin Chewable) 81 mg DAILY PO 11/26/20 09:00 01/13/21 08:05 Carvedilol (Coreg) 6.25 mg BIDWMEALS PO 11/25/20 18:30 01/13/21 16:48 Lisinopril (Prinivil) 10 mg DAILY PO 11/26/20 09:00 11/26/20 16:16 DC Quetiapine Fumarate (SEROquel) 25 mg QHS PO 11/25/20 21:00 12/23/20 17:23 DC 12/22/20 20:04 Tamsulosin HCl (Flomax) 0.4 mg DAILY PO 11/26/20 09:00 01/13/21 08:05 Amoxicillin (Amoxil) 500 mg [id number] PO 11/25/20 21:00 12/02/20 14:01 DC 12/02/20 14:15 Atorvastatin Calcium (Lipitor) 40 mg QHS PO 11/25/20 21:00 01/13/21 19:38 Folic Acid (Folic Acid) 1 mg DAILY PO 11/26/20 09:00 01/13/21 08:05 Lidocaine (Lidoderm) 1 patch DAILY TD 11/26/20 09:00 01/13/21 08:05 Multivitamins/ Calcium (Thera-M Plus) 1 tab DAILY PO 11/26/20 09:00 01/13/21 08:06 Thiamine HCl (Vitamin B-1) 100 mg BID PO 11/25/20 21:00 01/13/21 19:38 Olanzapine (ZyPREXA ZYDIS) 2.5 mg PRN Q2HR PRN PO PSYCHOSIS 11/25/20 21:15 01/13/21 19:44 Trazodone HCl (Desyrel) 50 mg PRN QHS PRN PO INSOMNIA, MAY REPEAT IN 1HR 11/25/20 21:15 01/03/21 16:48 DC 01/03/21 02:21 Mirtazapine (Remeron) 7.5 mg QHS PO 11/26/20 21:00 11/28/20 12:23 DC 11/27/20 20:00 Lactobacillus Rhamnosus (Culturelle) 1 cap BID PO 11/27/20 09:00 01/13/21 19:38 Sertraline HCl (Zoloft) 25 mg DAILY PO 11/28/20 09:00 11/30/20 09:01 DC 11/30/20 08:39 Sertraline HCl (Zoloft) 50 mg DAILY PO 12/01/20 09:00 12/03/20 11:00 DC 12/03/20 08:05 Mirtazapine (Remeron) 15 mg QHS PO 11/28/20 21:00 11/29/20 18:47 DC 11/28/20 19:38 Hydroxyzine HCl (Atarax) 25 mg PRN Q2HR PRN PO ABDOMINAL CRAMPS 11/28/20 21:45 01/11/21 15:34 Lorazepam (Ativan) 0.5 mg PRN Q4HRS PRN PO ANXIETY / AGITATION 11/28/20 21:45 11/29/20 21:45 DC Amitriptyline HCl (Elavil) 25 mg QHS PO 11/29/20 21:00 12/23/20 17:23 DC 12/22/20 20:04 Melatonin (Melatonin) 3 mg QHS PO 11/29/20 21:00 01/13/21 19:38 Sertraline HCl (Zoloft) 75 mg DAILY PO 12/04/20 09:00 01/13/21 08:07 Divalproex Sodium (Depakote Er) 500 mg QHS PO 12/02/20 21:00 12/05/20 12:29 DC 12/04/20 20:08 Divalproex Sodium (Depakote Er) 1,000 mg QHS PO 12/05/20 21:00 01/13/21 19:37 Quetiapine Fumarate (SEROquel) 12.5 mg DAILY PO 12/17/20 09:00 12/18/20 16:46 DC 12/18/20 08:01 Quetiapine Fumarate (SEROquel) 12.5 mg [id number] PO 12/19/20 09:00 12/23/20 17:23 DC 12/23/20 13:28 Quetiapine Fumarate (SEROquel) 25 mg TID PO 12/23/20 17:30 01/08/21 16:44 DC 01/08/21 12:48 Amitriptyline HCl (Elavil) 50 mg QHS PO 12/23/20 21:00 01/13/21 19:38 Furosemide (Lasix) 80 mg 1X ONCE PO 12/30/20 16:30 12/30/20 16:31 DC 12/30/20 16:27 Trazodone HCl (Desyrel) 100 mg QHS PO 01/03/21 21:00 01/13/21 19:38 Trazodone HCl (Desyrel) 100 mg PRN QHS PRN PO INSOMNIA, 01/03/21 17:00 01/09/21 22:16 Lactic Acid (Lac-Hydrin) 1 addison BID TP 01/07/21 21:00 01/13/21 19:39 Quetiapine Fumarate (SEROquel) 37.5 mg TID PO 01/08/21 21:00 01/13/21 19:39 I have reviewed the current psychotropics carefully including drug interactions. Risk benefit ratio favors no change other than as noted in my dictated progress note. Diagnosis: Problems: (1) Major neurocognitive disorder (2) Impulse control disorder, unspecified (3) Anxiety disorder, unspecified (4) Dementia, vascular, with depression (5) Dementia, vascular, with delusions (6) Dementia in Alzheimer's disease with depression (7) Dementia in Alzheimer's disease with delusions (8) Dementia of the Alzheimer's type with early onset with behavioral disturbance DONA BOTELLO MD Jan 13, 2021 20:56
--- NOTE | 2021-01-13 21:11 | NUR ---
Nursing Note Pt walking in halls confused, pulling on door handles looking for the motor, his car, other employees, needs the time clock...on and on. Door checking, thinks he's at work. Difficult to redirect.
[2021-01-13] MEDS: traZODone 100 MG TABLET. PO PRN (22:12)
[2021-01-14 06:17] VITALS: BP 159/87
--- NOTE | 2021-01-14 07:45 | PDOC ---
Exam Note: Gus Note: This note is a late entry for 01/13/2021 covers elements not covered in my initial note. Subjective: The patient was seen face to face in the evening of 01/13/2021 with Shanique OVIEDO, discussed and reviewed the chart. The patient slept 5-1/2 hours previous night. The patient is confused, anxious, exit seeking. In the morning he was in the [facility], obsessive regarding another demented female patient. It took 5 staff members to take him to the [facility] to reduce his stimuli and received Zyprexa Ubaldois later around 10.30 a.m. He was agitated, looking to go for his work. Review of Systems: No CV, , pulmonary, eye, ENT system symptoms on review. Reliability poor. Mental Status Exam: The patient is oriented to himself. Insight and judgment, recent and remote memory, attention and concentration, fund of knowledge is poor consistent with his diagnosis. Laboratory Data: Reviewed. Impression: Major neurocognitive disorder Alzheimer vascular with delusion, depression, behavioral disturbance. Anxiety disorder unspecified. Impulse control disorder unspecified. Plan: No change from initial note. Assessment: Vital Signs/I&O: Vital Signs Date Time Temp Pulse Resp B/P (MAP) Pulse Ox O2 Delivery O2 Flow Rate FiO2 01/14/21 06:17 97.0 67 16 159/87 (111) 98 01/10/21 05:59 Room Air I & O 01/13/21 01/13/21 01/14/21 14:59 22:59 06:59 Intake Total 580 ml 360 ml Balance 580 ml 360 ml Current Medications: Meds: Current Medications Medications (Trade) Dose Ordered Sig/Evaristo Route PRN Reason Start Time Stop Time Status Last Admin Dose Admin Acetaminophen (Tylenol) 650 mg PRN Q6HRS PRN PO MILD PAIN / TEMP > 100.3'F 11/25/20 18:00 01/08/21 17:35 Multi-Ingredient Ointment (Analgesic [place]) 1 addison PRN QID PRN TP MUSCLE PAIN 11/25/20 18:00 Al Hydroxide/Mg Hydroxide (Mylanta Plus Xs) 15 ml PRN AFTMEALHC PRN PO DYSPEPSIA 11/25/20 18:00 12/10/20 18:52 Magnesium Hydroxide (Milk Of Magnesia) 2,400 mg PRN QHS PRN PO CONSTIPATION 11/25/20 18:00 12/13/20 08:36 Amlodipine Besylate (Norvasc) 10 mg DAILY PO 11/26/20 09:00 01/13/21 08:06 Aspirin (Aspirin Chewable) 81 mg DAILY PO 11/26/20 09:00 01/13/21 08:05 Carvedilol (Coreg) 6.25 mg BIDWMEALS PO 11/25/20 18:30 01/13/21 16:48 Lisinopril (Prinivil) 10 mg DAILY PO 11/26/20 09:00 11/26/20 16:16 DC Quetiapine Fumarate (SEROquel) 25 mg QHS PO 11/25/20 21:00 12/23/20 17:23 DC 12/22/20 20:04 Tamsulosin HCl (Flomax) 0.4 mg DAILY PO 11/26/20 09:00 01/13/21 08:05 Amoxicillin (Amoxil) 500 mg [id number] PO 11/25/20 21:00 12/02/20 14:01 DC 12/02/20 14:15 Atorvastatin Calcium (Lipitor) 40 mg QHS PO 11/25/20 21:00 01/13/21 19:38 Folic Acid (Folic Acid) 1 mg DAILY PO 11/26/20 09:00 01/13/21 08:05 Lidocaine (Lidoderm) 1 patch DAILY TD 11/26/20 09:00 01/13/21 08:05 Multivitamins/ Calcium (Thera-M Plus) 1 tab DAILY PO 11/26/20 09:00 01/13/21 08:06 Thiamine HCl (Vitamin B-1) 100 mg BID PO 11/25/20 21:00 01/13/21 19:38 Olanzapine (ZyPREXA ZYDIS) 2.5 mg PRN Q2HR PRN PO PSYCHOSIS 11/25/20 21:15 01/13/21 19:44 Trazodone HCl (Desyrel) 50 mg PRN QHS PRN PO INSOMNIA, MAY REPEAT IN 1HR 11/25/20 21:15 01/03/21 16:48 DC 01/03/21 02:21 Mirtazapine (Remeron) 7.5 mg QHS PO 11/26/20 21:00 11/28/20 12:23 DC 11/27/20 20:00 Lactobacillus Rhamnosus (Culturelle) 1 cap BID PO 11/27/20 09:00 01/13/21 19:38 Sertraline HCl (Zoloft) 25 mg DAILY PO 11/28/20 09:00 11/30/20 09:01 DC 11/30/20 08:39 Sertraline HCl (Zoloft) 50 mg DAILY PO 12/01/20 09:00 12/03/20 11:00 DC 12/03/20 08:05 Mirtazapine (Remeron) 15 mg QHS PO 11/28/20 21:00 11/29/20 18:47 DC 11/28/20 19:38 Hydroxyzine HCl (Atarax) 25 mg PRN Q2HR PRN PO ABDOMINAL CRAMPS 11/28/20 21:45 01/11/21 15:34 Lorazepam (Ativan) 0.5 mg PRN Q4HRS PRN PO ANXIETY / AGITATION 11/28/20 21:45 11/29/20 21:45 DC Amitriptyline HCl (Elavil) 25 mg QHS PO 11/29/20 21:00 12/23/20 17:23 DC 12/22/20 20:04 Melatonin (Melatonin) 3 mg QHS PO 11/29/20 21:00 01/13/21 19:38 Sertraline HCl (Zoloft) 75 mg DAILY PO 12/04/20 09:00 01/13/21 08:07 Divalproex Sodium (Depakote Er) 500 mg QHS PO 12/02/20 21:00 12/05/20 12:29 DC 12/04/20 20:08 Divalproex Sodium (Depakote Er) 1,000 mg QHS PO 12/05/20 21:00 01/13/21 19:37 Quetiapine Fumarate (SEROquel) 12.5 mg DAILY PO 12/17/20 09:00 12/18/20 16:46 DC 12/18/20 08:01 Quetiapine Fumarate (SEROquel) 12.5 mg [id number] PO 12/19/20 09:00 12/23/20 17:23 DC 12/23/20 13:28 Quetiapine Fumarate (SEROquel) 25 mg TID PO 12/23/20 17:30 01/08/21 16:44 DC 01/08/21 12:48 Amitriptyline HCl (Elavil) 50 mg QHS PO 12/23/20 21:00 01/13/21 19:38 Furosemide (Lasix) 80 mg 1X ONCE PO 12/30/20 16:30 12/30/20 16:31 DC 12/30/20 16:27 Trazodone HCl (Desyrel) 100 mg QHS PO 01/03/21 21:00 01/13/21 19:38 Trazodone HCl (Desyrel) 100 mg PRN QHS PRN PO INSOMNIA, 01/03/21 17:00 01/13/21 22:12 Lactic Acid (Lac-Hydrin) 1 addison BID TP 01/07/21 21:00 01/13/21 19:39 Quetiapine Fumarate (SEROquel) 37.5 mg TID PO 01/08/21 21:00 01/13/21 19:39 I have reviewed the current psychotropics carefully including drug interactions. Risk benefit ratio favors no change other than as noted in my dictated progress note. Diagnosis: Problems: (1) Major neurocognitive disorder (2) Impulse control disorder, unspecified (3) Anxiety disorder, unspecified (4) Dementia, vascular, with depression (5) Dementia, vascular, with delusions (6) Dementia in Alzheimer's disease with depression (7) Dementia in Alzheimer's disease with delusions (8) Dementia of the Alzheimer's type with early onset with behavioral disturbance DONA BOTELLO MD Jan 14, 2021 07:45
[2021-01-14] MEDS: CARVEDILOL 6.25 MG TABLET PO SCH ×2 (08:47→17:29)
[2021-01-14] MEDS: amLODIPine BESYLATE 10 MG TABLET PO SCH (08:48)
[2021-01-14] MEDS: MULTIVITAMIN with MINERAL TABLET. PO SCH (08:48)
[2021-01-14] MEDS: FOLIC ACID 1 MG TABLET PO SCH (08:48)
[2021-01-14] MEDS: LACTOBACILLUS RHAMNOSUS GG 1 CAPSULE. PO SCH ×2 (08:48→20:13)
[2021-01-14] MEDS: QUEtiapine 25 MG TABLET. PO SCH ×3 (08:48→20:15)
[2021-01-14] MEDS: TAMSULOSIN 0.4 MG CAP.ER.24H. PO SCH (08:48)
[2021-01-14] MEDS: THIAMINE 100 MG TABLET. PO SCH ×2 (08:48→20:14)
[2021-01-14] MEDS: ASPIRIN CHEWABLE 81 MG TABLET. PO SCH (08:48)
[2021-01-14] MEDS: LIDOCAINE (700MG/PATCH) PATCH. TD SCH (08:49)
[2021-01-14] MEDS: AMMONIUM LACTATE 12% TOPICAL LOTION 226GM BOTTLE. TP SCH ×2 (08:49→20:15)
[2021-01-14] MEDS: SERTRALINE 25 MG TABLET. PO SCH (08:49)
[2021-01-14] MEDS: ACETAMINOPHEN 325 MG TABLET PO PRN (12:42)
--- NOTE | 2021-01-14 13:06 | NUR ---
Pt is wandering, exit seeking, and door checking a specific door to the dayroom stating "I know my car is out that door, I parked it there!" Staff is unable to redirect the pt. PRN gill rebollar given and pt taken to [facility] for deescalation.
[2021-01-14 15:45] VITALS: BP 101/67
--- NOTE | 2021-01-14 16:30 | NUR ---
Pt wandering into female pts room. When staff redirected pt he stated "you can't tell me what to do!" when staff again attempted to redirect pt the placed himself on the floor and attempted to kick staff. Pt was taken to the [facility] for deescalation. PRN gill rebollar given with dinner.
[2021-01-14] MEDS: MELATONIN 3 MG TABLET PO SCH (20:13)
[2021-01-14] MEDS: AMITRIPTYLINE HCL 50 MG TABLET PO SCH (20:13)
[2021-01-14] MEDS: DIVALPROEX ER 500 MG TAB.ER.24H PO SCH (20:14)
[2021-01-14] MEDS: traZODone 100 MG TABLET. PO SCH (20:14)
[2021-01-14] MEDS: ATORVASTATIN CALCIUM 20 MG TABLET PO SCH (20:15)
--- NOTE | 2021-01-14 21:00 | PDOC ---
Exam Note: Gus Note: Please also refer to the separate dictated note~for this date of service dictated separately.~Patient seen individually. Discussed the patient with Nursing staff reviewed the chart.~Reviewed interim history and current functioning. Reviewed vital signs,~Labs/ Radiology~and current medications noted below. Continue current treatment with the changes noted in the dictated addendum note Assessment: Vital Signs/I&O: Vital Signs Date Time Temp Pulse Resp B/P (MAP) Pulse Ox O2 Delivery O2 Flow Rate FiO2 01/14/21 17:29 84 101/67 01/14/21 15:45 97.6 18 98 Room Air I & O 01/13/21 01/13/21 01/14/21 15:00 23:00 07:00 Intake Total 580 ml 360 ml Balance 580 ml 360 ml Current Medications: Meds: Current Medications Medications (Trade) Dose Ordered Sig/Evaristo Route PRN Reason Start Time Stop Time Status Last Admin Dose Admin Acetaminophen (Tylenol) 650 mg PRN Q6HRS PRN PO MILD PAIN / TEMP > 100.3'F 11/25/20 18:00 01/14/21 12:42 Multi-Ingredient Ointment (Analgesic [place]) 1 addison PRN QID PRN TP MUSCLE PAIN 11/25/20 18:00 Al Hydroxide/Mg Hydroxide (Mylanta Plus Xs) 15 ml PRN AFTMEALHC PRN PO DYSPEPSIA 11/25/20 18:00 12/10/20 18:52 Magnesium Hydroxide (Milk Of Magnesia) 2,400 mg PRN QHS PRN PO CONSTIPATION 11/25/20 18:00 12/13/20 08:36 Amlodipine Besylate (Norvasc) 10 mg DAILY PO 11/26/20 09:00 01/14/21 08:48 Aspirin (Aspirin Chewable) 81 mg DAILY PO 11/26/20 09:00 01/14/21 08:48 Carvedilol (Coreg) 6.25 mg BIDWMEALS PO 11/25/20 18:30 01/14/21 17:29 Lisinopril (Prinivil) 10 mg DAILY PO 11/26/20 09:00 11/26/20 16:16 DC Quetiapine Fumarate (SEROquel) 25 mg QHS PO 11/25/20 21:00 12/23/20 17:23 DC 12/22/20 20:04 Tamsulosin HCl (Flomax) 0.4 mg DAILY PO 11/26/20 09:00 01/14/21 08:48 Amoxicillin (Amoxil) 500 mg [id number] PO 11/25/20 21:00 12/02/20 14:01 DC 12/02/20 14:15 Atorvastatin Calcium (Lipitor) 40 mg QHS PO 11/25/20 21:00 01/14/21 20:15 Folic Acid (Folic Acid) 1 mg DAILY PO 11/26/20 09:00 01/14/21 08:48 Lidocaine (Lidoderm) 1 patch DAILY TD 11/26/20 09:00 01/14/21 08:49 Multivitamins/ Calcium (Thera-M Plus) 1 tab DAILY PO 11/26/20 09:00 01/14/21 08:48 Thiamine HCl (Vitamin B-1) 100 mg BID PO 11/25/20 21:00 01/14/21 20:14 Olanzapine (ZyPREXA ZYDIS) 2.5 mg PRN Q2HR PRN PO PSYCHOSIS 11/25/20 21:15 01/14/21 17:30 Trazodone HCl (Desyrel) 50 mg PRN QHS PRN PO INSOMNIA, MAY REPEAT IN 1HR 11/25/20 21:15 01/03/21 16:48 DC 01/03/21 02:21 Mirtazapine (Remeron) 7.5 mg QHS PO 11/26/20 21:00 11/28/20 12:23 DC 11/27/20 20:00 Lactobacillus Rhamnosus (Culturelle) 1 cap BID PO 11/27/20 09:00 01/14/21 20:13 Sertraline HCl (Zoloft) 25 mg DAILY PO 11/28/20 09:00 11/30/20 09:01 DC 11/30/20 08:39 Sertraline HCl (Zoloft) 50 mg DAILY PO 12/01/20 09:00 12/03/20 11:00 DC 12/03/20 08:05 Mirtazapine (Remeron) 15 mg QHS PO 11/28/20 21:00 11/29/20 18:47 DC 11/28/20 19:38 Hydroxyzine HCl (Atarax) 25 mg PRN Q2HR PRN PO ABDOMINAL CRAMPS 11/28/20 21:45 01/11/21 15:34 Lorazepam (Ativan) 0.5 mg PRN Q4HRS PRN PO ANXIETY / AGITATION 11/28/20 21:45 11/29/20 21:45 DC Amitriptyline HCl (Elavil) 25 mg QHS PO 11/29/20 21:00 12/23/20 17:23 DC 12/22/20 20:04 Melatonin (Melatonin) 3 mg QHS PO 11/29/20 21:00 01/14/21 20:13 Sertraline HCl (Zoloft) 75 mg DAILY PO 12/04/20 09:00 01/14/21 18:05 DC 01/14/21 08:49 Divalproex Sodium (Depakote Er) 500 mg QHS PO 12/02/20 21:00 12/05/20 12:29 DC 12/04/20 20:08 Divalproex Sodium (Depakote Er) 1,000 mg QHS PO 12/05/20 21:00 01/14/21 20:14 Quetiapine Fumarate (SEROquel) 12.5 mg DAILY PO 12/17/20 09:00 12/18/20 16:46 DC 12/18/20 08:01 Quetiapine Fumarate (SEROquel) 12.5 mg [id number] PO 12/19/20 09:00 12/23/20 17:23 DC 12/23/20 13:28 Quetiapine Fumarate (SEROquel) 25 mg TID PO 12/23/20 17:30 01/08/21 16:44 DC 01/08/21 12:48 Amitriptyline HCl (Elavil) 50 mg QHS PO 12/23/20 21:00 01/14/21 20:13 Furosemide (Lasix) 80 mg 1X ONCE PO 12/30/20 16:30 12/30/20 16:31 DC 12/30/20 16:27 Trazodone HCl (Desyrel) 100 mg QHS PO 01/03/21 21:00 01/14/21 20:14 Trazodone HCl (Desyrel) 100 mg PRN QHS PRN PO INSOMNIA, 01/03/21 17:00 01/13/21 22:12 Lactic Acid (Lac-Hydrin) 1 addison BID TP 01/07/21 21:00 01/14/21 20:15 Quetiapine Fumarate (SEROquel) 37.5 mg TID PO 01/08/21 21:00 01/14/21 20:15 Sertraline HCl (Zoloft) 100 mg DAILY PO 01/15/21 09:00 I have reviewed the current psychotropics carefully including drug interactions. Risk benefit ratio favors no change other than as noted in my dictated progress note. 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
--- NOTE | 2021-01-14 22:27 | NUR ---
Pt continues to be delusional this evening, stating he needs to leave for work. Pt wandering unit and door checking. Compliant with whole medications. No agitation this evening.
[2021-01-15 05:36] VITALS: BP 132/69
[2021-01-15] MEDS: TAMSULOSIN 0.4 MG CAP.ER.24H. PO SCH (09:15)
[2021-01-15] MEDS: amLODIPine BESYLATE 10 MG TABLET PO SCH (09:15)
[2021-01-15] MEDS: CARVEDILOL 6.25 MG TABLET PO SCH ×2 (09:15→16:26)
[2021-01-15] MEDS: FOLIC ACID 1 MG TABLET PO SCH (09:15)
[2021-01-15] MEDS: LACTOBACILLUS RHAMNOSUS GG 1 CAPSULE. PO SCH ×2 (09:15→19:46)
[2021-01-15] MEDS: ASPIRIN CHEWABLE 81 MG TABLET. PO SCH (09:15)
[2021-01-15] MEDS: MULTIVITAMIN with MINERAL TABLET. PO SCH (09:15)
[2021-01-15] MEDS: QUEtiapine 25 MG TABLET. PO SCH ×2 (09:15→14:31)
[2021-01-15] MEDS: THIAMINE 100 MG TABLET. PO SCH ×2 (09:16→19:46)
[2021-01-15] MEDS: SERTRALINE 50 MG TABLET. PO SCH (09:16)
[2021-01-15] MEDS: LIDOCAINE (700MG/PATCH) PATCH. TD SCH (09:16)
[2021-01-15] MEDS: AMMONIUM LACTATE 12% TOPICAL LOTION 226GM BOTTLE. TP SCH ×2 (09:17→19:47)
--- NOTE | 2021-01-15 10:13 | NUR ---
Pt is wandering, he believes a female pt is his . He is compliant with his medication and assessment. No hallucinations.
--- NOTE | 2021-01-15 15:27 | NUR ---
pt is wandering the unit door checking, exit seeking, and repetitively shaking the door handly to the day room. staff was unable to redirect pt. HARSHIL rebollar given
[2021-01-15 16:19] VITALS: BP 128/83
[2021-01-15] MEDS ORDERED: risperiDONE 0.5 MG TABLET. PO SCH (16:30)
--- NOTE | 2021-01-15 16:31 | NUR ---
pt continues to wander the unit, door check, exit seek, and is adamant he works here. He is asking for a hammer and stating the "water is going to leak." Page placed to dr alfonso. New order to dc seroquel. start risperdal 0.25mg TID 0900,1300 and 1700 give risperdal .5mg now
[2021-01-15] MEDS: traZODone 100 MG TABLET. PO SCH (19:46)
[2021-01-15] MEDS: DIVALPROEX ER 500 MG TAB.ER.24H PO SCH (19:46)
[2021-01-15] MEDS: ATORVASTATIN CALCIUM 20 MG TABLET PO SCH (19:46)
[2021-01-15] MEDS: MELATONIN 3 MG TABLET PO SCH (19:46)
[2021-01-15] MEDS: AMITRIPTYLINE HCL 50 MG TABLET PO SCH (19:46)
--- NOTE | 2021-01-15 21:30 | PDOC ---
Exam Note: Gus Note: Please also refer to the separate dictated note~for this date of service dictated separately.~Patient seen individually. Discussed the patient with Nursing staff reviewed the chart.~Reviewed interim history and current functioning. Reviewed vital signs,~Labs/ Radiology~and current medications noted below. Continue current treatment with the changes noted in the dictated addendum note Assessment: Vital Signs/I&O: Vital Signs Date Time Temp Pulse Resp B/P (MAP) Pulse Ox O2 Delivery O2 Flow Rate FiO2 01/15/21 16:26 84 128/83 01/15/21 16:19 97.3 20 97 01/14/21 15:45 Room Air I & O 01/14/21 01/14/21 01/15/21 15:00 23:00 07:00 Intake Total 360 ml 600 ml Balance 360 ml 600 ml Current Medications: Meds: Current Medications Medications (Trade) Dose Ordered Sig/Evaristo Route PRN Reason Start Time Stop Time Status Last Admin Dose Admin Sertraline HCl (Zoloft) 100 mg DAILY PO 01/15/21 09:00 01/15/21 09:16 Risperidone (RisperDAL) 0.5 mg 1X PO 01/15/21 16:30 01/15/21 16:25 I have reviewed the current psychotropics carefully including drug interactions. Risk benefit ratio favors no change other than as noted in my dictated progress note. Diagnosis: Problems: (1) Major neurocognitive disorder (2) Impulse control disorder, unspecified (3) Anxiety disorder, unspecified (4) Dementia, vascular, with depression (5) Dementia, vascular, with delusions (6) Dementia in Alzheimer's disease with depression (7) Dementia in Alzheimer's disease with delusions (8) Dementia of the Alzheimer's type with early onset with behavioral disturbance DONA BOTLELO MD Jan 15, 2021 21:30
--- NOTE | 2021-01-15 22:20 | NUR ---
Pt wandering the unit this evening with female peer. Door checking and asking to leave. Compliant with whole medications.
--- NOTE | 2021-01-16 00:12 | PN ---
DATE: 01/15/2021 PSYCHIATRIC PROGRESS NOTE SUBJECTIVE: The patient was seen on rounds. Discussed with nursing staff, reviewed the chart. This note covers elements not covered in my initial note of 01/15/2021. Per PREET Alcantara, the patient slept 6-3/4 hours previous night. Remains confused, agitated, delusional, exit seeking. I have been paged as an emergency by nursing staff due to his agitation and we have adjusted his Zyprexa to assist with this. He remains extremely paranoid, delusional. We are also going to change of Seroquel to Risperdal 0.25 mg 9 a.m., 1:00 p.m. and 5:00 p.m. with one time dosage 0.5 mg now. REVIEW OF SYSTEMS: No CV, , pulmonary, eye, ENT system symptoms on review. Reliability poor. MENTAL STATUS EXAM: Oriented to himself. Insight, judgment, recent and remote memory, attention, concentration, fund of knowledge poor, consistent with his diagnosis. IMPRESSION: Major neurocognitive disorder, Alzheimer, vascular with delusion, depression, behavioral disturbance; anxiety disorder, unspecified; impulse control disorder, unspecified. PLAN: Change Seroquel to Risperdal as noted above. Continue Zyprexa p.r.n. Maintain Depakote ER 1000 mg at bedtime, level therapeutic at 53, continue amitriptyline 50 mg at bedtime. He is sleeping better with this. Maintain Zyprexa p.r.n., trazodone p.r.n., Ativan p.r.n. Adjust further as clinically indicated. Continue melatonin 3 mg at bedtime. MAN Leena BOTELLO MD DR: CHRISTINA/roxy JOB#: [id number] / [id number]
[2021-01-16 06:04] VITALS: BP 124/72
--- NOTE | 2021-01-16 07:45 | NUR ---
Patient is delusional, believing that another patient is his girl friend, holding hands with her and exit seeking. Patient became agitated when staff and was escorted into the west hallway. PRN medication provided per eMAR, will continue to monitor.
[2021-01-16] MEDS: SERTRALINE 50 MG TABLET. PO SCH (08:06)
[2021-01-16] MEDS: risperiDONE 0.25 MG TABLET. PO SCH ×3 (08:07→17:04)
[2021-01-16] MEDS: amLODIPine BESYLATE 10 MG TABLET PO SCH (08:07)
[2021-01-16] MEDS: LACTOBACILLUS RHAMNOSUS GG 1 CAPSULE. PO SCH ×2 (08:07→20:48)
[2021-01-16] MEDS: MULTIVITAMIN with MINERAL TABLET. PO SCH (08:07)
[2021-01-16] MEDS: THIAMINE 100 MG TABLET. PO SCH ×2 (08:07→20:48)
[2021-01-16] MEDS: FOLIC ACID 1 MG TABLET PO SCH (08:07)
[2021-01-16] MEDS: ASPIRIN CHEWABLE 81 MG TABLET. PO SCH (08:07)
[2021-01-16] MEDS: CARVEDILOL 6.25 MG TABLET PO SCH ×2 (08:07→17:03)
[2021-01-16] MEDS: TAMSULOSIN 0.4 MG CAP.ER.24H. PO SCH (08:07)
[2021-01-16] MEDS: LIDOCAINE (700MG/PATCH) PATCH. TD SCH (08:08)
[2021-01-16] MEDS: AMMONIUM LACTATE 12% TOPICAL LOTION 226GM BOTTLE. TP SCH ×2 (09:00→20:48)
[2021-01-16 13:17] LABS: BACTERIA,URINE 0 /HPF (0-FEW); BILIRUBIN,URINE NEG (NEG); CLARITY,URINE CLEAR; COLOR,URINE YELLOW; GLUCOSE,URINE NEG (NEG); NITRITE,URINE NEG (NEG); RBC,URINE 0 /HPF (0-2); UROBILINOGEN,URINE 0.2 mg/dL (0.2 mg/dL); WBC,URINE 0 /HPF (0-4)
--- NOTE | 2021-01-16 14:16 | NUR ---
WEEKLY ACTIVITY THERAPY NOTE Date of Admission: 11/25/2020 Date of AT Assessment: 11/28/2020 Precipitating behaviors that initiated intake and admission: Patient was reported to be confused, agitated, delusional, hallucinating, removing IVs, and not cooperating with cares at [facility]. Goal aimed: to increase engagement and socialization Initial Goal: Pt. will participate in at least one Activity Therapy group per day. Weekly progress towards goal: did not achieve, no groups on Saturday or Saturday Group participation level: 2 min, 2 full Weekly highlights: morning gave exercises and was pleasantly engaged in Trivia Behaviors observed: sleepy in groups, confused about female peers- arms around each other which requires redirection and is met with resistance Plan: no change to goal Beneficial adaptations:
[2021-01-16 15:31] VITALS: BP 153/89
--- NOTE | 2021-01-16 15:46 | NUR ---
SW emailed pt guardian re: update about pt placement. Pt felix is working out financials with [facility] with the potential discharge of . MARY will continue to follow up with pt guardian and final discharge plans.
--- NOTE | 2021-01-16 15:46 | TX PLAN ---
Interdisciplinary Tx Plan Admission Information Nov 25, 2020 at 15:25 Legal Status (on Admission): Voluntary, Court Appointed Guardian, Court Appointed Conservat DPOA/Guardian Name: Maxwell Martinez- guardian Contact Verified Code Status: Full Code Allergies: Coded Allergies: No Known Drug Allergies (Unverified , 11/25/20) Estimated Length of Stay: 14 Diagnoses Primary Diagnosis: Major neurocognitive d/o, vascular, alzheimers with delusions, depresion, BD; Anxiety d/o unspecified; impulse control d/o Reasons for Admission: Aggressive, Delusions, Agitated, Alcohol Abuse, Sig. Change Sleep, Anxiety/Panic, Hallucinations, Combative, Confusion/Disoriented, Poor impulse control Problem in Patient's Words: Per Scottie, " Love and caring about her and my family." Per guardian, unsafe to live at home alone with level of confusion and memory impairment. Additional Admission Comments: Per intake record, hallucinating, delusional, aggressive during ro[facility] m care, confused, restless, nonsensical speech, anxious, insomnia, poor safety, pulled out IV, uncooperative, agitated, and yelling out. Problems Active Problems: Confused Delsuional Hallucinating Wandering, intrusive, restless Poor sleep Inactive Problems: Adequate meal intake Compliant with meds Pt Strengths/Limitations Ability for [place]: Poor Cognitive Functioning/Ability: Poor Communication Skills/Ability: Fair Financial Resources: Fair Insight/Judgement: Poor Intellectual Ability: Fair Physical Health: Fair Social Skills: Fair Stability in Family: Poor Verbal Skills: Fair Discharge Criteria Discharge Criteria: Adequate arrangements @DC, Improved behavior, Improved mood/thought Preliminary Discharge Plan Preliminary DC Plan: Placement Needed Special Precautions Special Precautions: Agitation/Assault Fall Risk: High Initial D/C Plan Scottie will need placement. [facility] is in the process of determining if a medicaid applincation will need to be filed to pay for alf care. Identified Discharge Needs: Scottie will need placement due to memory impairment. Currently Utilized Resources Currently Utilized Resources/P: PCP Referrals Community Resources: Placement referral PCP Psychiatry if available Identified Problems/Hx/Goals Objectives/Short-Term Goals Short Term Goals: Control abnormal behavior, Dec. Aggression, Dec. Anxiety/Panic, Dec. Hallucination/Delus, Dec. Outbursts, Medication Stabilization, Monitor Med Effects Short Term Goals in Patient's: Melvin Rubin, "I hope to conquer even better and us get along." Interventions/Frequency Staff Interventions/Frequency&: Nursing to provide routine safety checks, medication administration, and adl support. Psychiatry thre times weekly. SW visits twice weekly. Recreational and SW groups as Scottie will participate. 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 Social: Scottie enjoys basketball, swimming, and country music. Education: Scottie reported graduating high school. Community Follow-up PCP Psychiatry if available Placement referral Community Provider/Family Inpu: Treatment team meeting was held on 11/28/20. claims analyst of treatment plan was enterred on 11/29/20. cal Arreolaan, declined to be involed in team meetings but does want to know any recommendations concerning Scottie. 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 Pt continues to be restless, agitated at times when redirected, and wanders the unit (e.g. exit seeking/checking doors). Pt is delusional as he believes that he needs to get to work and believes one of the pt to be his significant other. Pt was discontinued from the Seroquel last week and started on the Risperdal 0.25mg TID. Pt does have placement and [facility]; however, they are in discussion with pt guardian to go over the LTC policy and what it all entails. Pt ELOS will be for ; but also dependent on if financials are taken care of by that time. BA MUÑIZ Jan 16, 2021 15:46
--- NOTE | 2021-01-16 17:00 | NUR ---
Patient continues to be delusional and became agitated when staff had to separate him from a female patient and escorted him to the [facility]. Patient states 'her two sisters dragged me in here and said I couldn't see her again.' PRN medications provided per eMAR, will continue to monitor.
[2021-01-16] MEDS: hydrOXYzine HCL 25 MG TABLET PO PRN ×2 (17:02→20:49)
[2021-01-16] MEDS: AMITRIPTYLINE HCL 50 MG TABLET PO SCH (20:47)
[2021-01-16] MEDS: DIVALPROEX ER 500 MG TAB.ER.24H PO SCH (20:48)
[2021-01-16] MEDS: traZODone 100 MG TABLET. PO SCH (20:48)
[2021-01-16] MEDS: ATORVASTATIN CALCIUM 20 MG TABLET PO SCH (20:48)
[2021-01-16] MEDS: MELATONIN 3 MG TABLET PO SCH (20:48)
--- NOTE | 2021-01-16 21:57 | PDOC ---
Exam Note: Gus Note: Please also refer to the separate dictated note~for this date of service dictated separately.~Patient seen individually. Discussed the patient with Nursing staff reviewed the chart.~Reviewed interim history and current functioning. Reviewed vital signs,~Labs/ Radiology~and current medications noted below. Continue current treatment with the changes noted in the dictated addendum note Assessment: Vital Signs/I&O: Vital Signs Date Time Temp Pulse Resp B/P (MAP) Pulse Ox O2 Delivery O2 Flow Rate FiO2 01/16/21 17:03 79 153/89 01/16/21 15:31 97.2 20 99 Room Air I & O 01/15/21 01/15/21 01/16/21 14:59 22:59 06:59 Intake Total 480 ml 480 ml Balance 480 ml 480 ml Labs: Laboratory Tests Test 01/16/21 12:00 Urine Collection Type Void Urine Color Yellow Urine Clarity Clear Urine pH 7.0 Urine Specific [place] 1.015 Urine Protein Neg (NEG-TRACE) Urine Glucose (UA) Neg mg/dL (NEG) Urine Ketones (Stick) Neg mg/dL (NEG) Urine Blood Neg (NEG) Urine Nitrite Neg (NEG) Urine Bilirubin Neg (NEG) Urine Urobilinogen Dipstick 0.2 mg/dL (0.2 mg/dL) Urine Leukocyte Esterase Neg (NEG) Urine RBC 0 /HPF (0-2) Urine WBC 0 /HPF (0-4) Urine Squamous Epithelial Cells None /LPF Urine Bacteria 0 /HPF (0-FEW) Current Medications: Meds: Current Medications Medications (Trade) Dose Ordered Sig/Evaristo Route PRN Reason Start Time Stop Time Status Last Admin Dose Admin Risperidone (RisperDAL) 0.25 mg 0900,1300,1700 PO 01/16/21 09:00 01/16/21 17:04 I have reviewed the current psychotropics carefully including drug interactions. Risk benefit ratio favors no change other than as noted in my dictated progress note. Diagnosis: Problems: (1) Major neurocognitive disorder (2) Impulse control disorder, unspecified (3) Anxiety disorder, unspecified (4) Dementia, vascular, with depression (5) Dementia, vascular, with delusions (6) Dementia in Alzheimer's disease with depression (7) Dementia in Alzheimer's disease with delusions (8) Dementia of the Alzheimer's type with early onset with behavioral disturbance DONA BOTELLO MD Jan 16, 2021 21:57
--- NOTE | 2021-01-16 22:38 | NUR ---
Pt disorganized, restless and wandering this evening. Pt continues to state that he needs to leave. Compliant with whole medications. PRN Atarax administered with HS medications.
[2021-01-17 05:33] VITALS: BP 156/86
--- NOTE | 2021-01-17 08:16 | PDOC ---
Exam Note: Gus Note: This note is a late entry for 01/14/2021 covers elements not covered in my initial note. Subjective: The patient was seen face to face in the evening of 01/14/2021 with Hanane OVIEDO, discussed and reviewed the chart. The patient slept 5-1/4 hours previous night. Previous night he was flirting with another demented female patient, yelling for Cristo his previous caregiver, delusional, rattling the doors, believed his car is parked outside, needs to get there, exit seeking. Received Zyprexa and we will increase the Zoloft to 100 mg a day for his mood and anxiety symptoms. Review of Systems: No CV, , pulmonary, eye, ENT system symptoms on review. Mental Status Exam: The patient is oriented to himself. Insight and judgment, recent and remote memory, attention and concentration, fund of knowledge is poor consistent with his diagnosis. Laboratory Data: Reviewed. Impression: Major neurocognitive disorder Alzheimer vascular with delusion, depression, behavioral disturbance. Anxiety disorder unspecified. Impulse control disorder unspecified. Plan: No change from initial note. Assessment: Vital Signs/I&O: Vital Signs Date Time Temp Pulse Resp B/P (MAP) Pulse Ox O2 Delivery O2 Flow Rate FiO2 01/17/21 05:33 97.7 67 18 156/86 (109) 95 01/16/21 15:31 Room Air I & O 01/16/21 01/16/21 01/17/21 15:00 23:00 07:00 Intake Total 900 ml 480 ml Balance 900 ml 480 ml Labs: Laboratory Tests Test 01/16/21 12:00 Urine Collection Type Void Urine Color Yellow Urine Clarity Clear Urine pH 7.0 Urine Specific [place] 1.015 Urine Protein Neg (NEG-TRACE) Urine Glucose (UA) Neg mg/dL (NEG) Urine Ketones (Stick) Neg mg/dL (NEG) Urine Blood Neg (NEG) Urine Nitrite Neg (NEG) Urine Bilirubin Neg (NEG) Urine Urobilinogen Dipstick 0.2 mg/dL (0.2 mg/dL) Urine Leukocyte Esterase Neg (NEG) Urine RBC 0 /HPF (0-2) Urine WBC 0 /HPF (0-4) Urine Squamous Epithelial Cells None /LPF Urine Bacteria 0 /HPF (0-FEW) Current Medications: Meds: Laboratory Tests Test 01/16/21 12:00 Urine Collection Type Void Urine Color Yellow Urine Clarity Clear Urine pH 7.0 Urine Specific [place] 1.015 Urine Protein Neg Urine Glucose (UA) Neg mg/dL Urine Ketones (Stick) Neg mg/dL Urine Blood Neg Urine Nitrite Neg Urine Bilirubin Neg Urine Urobilinogen Dipstick 0.2 mg/dL Urine Leukocyte Esterase Neg Urine RBC 0 /HPF Urine WBC 0 /HPF Urine Squamous Epithelial Cells None /LPF Urine Bacteria 0 /HPF Current Medications Medications (Trade) Dose Ordered Sig/Evaristo Route PRN Reason Start Time Stop Time Status Last Admin Dose Admin Acetaminophen (Tylenol) 650 mg PRN Q6HRS PRN PO MILD PAIN / TEMP > 100.3'F 11/25/20 18:00 01/14/21 12:42 Multi-Ingredient Ointment (Analgesic [place]) 1 addison PRN QID PRN TP MUSCLE PAIN 11/25/20 18:00 Al Hydroxide/Mg Hydroxide (Mylanta Plus Xs) 15 ml PRN AFTMEALHC PRN PO DYSPEPSIA 11/25/20 18:00 12/10/20 18:52 Magnesium Hydroxide (Milk Of Magnesia) 2,400 mg PRN QHS PRN PO CONSTIPATION 11/25/20 18:00 12/13/20 08:36 Amlodipine Besylate (Norvasc) 10 mg DAILY PO 11/26/20 09:00 01/16/21 08:07 Aspirin (Aspirin Chewable) 81 mg DAILY PO 11/26/20 09:00 01/16/21 08:07 Carvedilol (Coreg) 6.25 mg BIDWMEALS PO 11/25/20 18:30 01/16/21 17:03 Lisinopril (Prinivil) 10 mg DAILY PO 11/26/20 09:00 11/26/20 16:16 DC Quetiapine Fumarate (SEROquel) 25 mg QHS PO 11/25/20 21:00 12/23/20 17:23 DC 12/22/20 20:04 Tamsulosin HCl (Flomax) 0.4 mg DAILY PO 11/26/20 09:00 01/16/21 08:07 Amoxicillin (Amoxil) 500 mg [id number] PO 11/25/20 21:00 12/02/20 14:01 DC 12/02/20 14:15 Atorvastatin Calcium (Lipitor) 40 mg QHS PO 11/25/20 21:00 01/16/21 20:48 Folic Acid (Folic Acid) 1 mg DAILY PO 11/26/20 09:00 01/16/21 08:07 Lidocaine (Lidoderm) 1 patch DAILY TD 11/26/20 09:00 01/16/21 08:08 Multivitamins/ Calcium (Thera-M Plus) 1 tab DAILY PO 11/26/20 09:00 01/16/21 08:07 Thiamine HCl (Vitamin B-1) 100 mg BID PO 11/25/20 21:00 01/16/21 20:48 Olanzapine (ZyPREXA ZYDIS) 2.5 mg PRN Q2HR PRN PO PSYCHOSIS 11/25/20 21:15 01/16/21 17:02 Trazodone HCl (Desyrel) 50 mg PRN QHS PRN PO INSOMNIA, MAY REPEAT IN 1HR 11/25/20 21:15 01/03/21 16:48 DC 01/03/21 02:21 Mirtazapine (Remeron) 7.5 mg QHS PO 11/26/20 21:00 11/28/20 12:23 DC 11/27/20 20:00 Lactobacillus Rhamnosus (Culturelle) 1 cap BID PO 11/27/20 09:00 01/16/21 20:48 Sertraline HCl (Zoloft) 25 mg DAILY PO 11/28/20 09:00 11/30/20 09:01 DC 11/30/20 08:39 Sertraline HCl (Zoloft) 50 mg DAILY PO 12/01/20 09:00 12/03/20 11:00 DC 12/03/20 08:05 Mirtazapine (Remeron) 15 mg QHS PO 11/28/20 21:00 11/29/20 18:47 DC 11/28/20 19:38 Hydroxyzine HCl (Atarax) 25 mg PRN Q2HR PRN PO ABDOMINAL CRAMPS 11/28/20 21:45 01/16/21 20:49 Lorazepam (Ativan) 0.5 mg PRN Q4HRS PRN PO ANXIETY / AGITATION 11/28/20 21:45 11/29/20 21:45 DC Amitriptyline HCl (Elavil) 25 mg QHS PO 11/29/20 21:00 12/23/20 17:23 DC 12/22/20 20:04 Melatonin (Melatonin) 3 mg QHS PO 11/29/20 21:00 01/16/21 20:48 Sertraline HCl (Zoloft) 75 mg DAILY PO 12/04/20 09:00 01/14/21 18:05 DC 01/14/21 08:49 Divalproex Sodium (Depakote Er) 500 mg QHS PO 12/02/20 21:00 12/05/20 12:29 DC 12/04/20 20:08 Divalproex Sodium (Depakote Er) 1,000 mg QHS PO 12/05/20 21:00 01/16/21 20:48 Quetiapine Fumarate (SEROquel) 12.5 mg DAILY PO 12/17/20 09:00 12/18/20 16:46 DC 12/18/20 08:01 Quetiapine Fumarate (SEROquel) 12.5 mg [id number] PO 12/19/20 09:00 12/23/20 17:23 DC 12/23/20 13:28 Quetiapine Fumarate (SEROquel) 25 mg TID PO 12/23/20 17:30 01/08/21 16:44 DC 01/08/21 12:48 Amitriptyline HCl (Elavil) 50 mg QHS PO 12/23/20 21:00 01/16/21 20:47 Furosemide (Lasix) 80 mg 1X ONCE PO 12/30/20 16:30 12/30/20 16:31 DC 12/30/20 16:27 Trazodone HCl (Desyrel) 100 mg QHS PO 01/03/21 21:00 01/16/21 20:48 Trazodone HCl (Desyrel) 100 mg PRN QHS PRN PO INSOMNIA, 01/03/21 17:00 01/13/21 22:12 Lactic Acid (Lac-Hydrin) 1 addison BID TP 01/07/21 21:00 01/16/21 20:48 Quetiapine Fumarate (SEROquel) 37.5 mg TID PO 01/08/21 21:00 01/15/21 16:18 DC 01/15/21 14:31 Sertraline HCl (Zoloft) 100 mg DAILY PO 01/15/21 09:00 01/16/21 08:06 Risperidone (RisperDAL) 0.25 mg 0900,1300,1700 PO 01/16/21 09:00 01/16/21 17:04 Risperidone (RisperDAL) 0.5 mg 1X PO 01/15/21 16:30 01/15/21 16:25 Current Medications Medications (Trade) Dose Ordered Sig/Evaristo Route PRN Reason Start Time Stop Time Status Last Admin Dose Admin Risperidone (RisperDAL) 0.25 mg 0900,1300,1700 PO 01/16/21 09:00 01/16/21 17:04 I have reviewed the current psychotropics carefully including drug interactions. Risk benefit ratio favors no change other than as noted in my dictated progress note. Diagnosis: Problems: (1) Major neurocognitive disorder (2) Impulse control disorder, unspecified (3) Anxiety disorder, unspecified (4) Dementia, vascular, with depression (5) Dementia, vascular, with delusions (6) Dementia in Alzheimer's disease with depression (7) Dementia in Alzheimer's disease with delusions (8) Dementia of the Alzheimer's type with early onset with behavioral disturbance DONA BOTELLO MD Jan 17, 2021 08:16
[2021-01-17] MEDS: AMMONIUM LACTATE 12% TOPICAL LOTION 226GM BOTTLE. TP SCH ×2 (09:00→20:49)
--- NOTE | 2021-01-17 09:26 | NUR ---
MARY spoke with Zayda, liaison for [facility], to discuss whether or not they can accept pt on . Pt has $22k in his savings, so he is considered private pay for at least the first month. She will call SHANNON Nicole at [facility], to ensure that will work for discharge.
[2021-01-17] MEDS: SERTRALINE 50 MG TABLET. PO SCH (09:53)
[2021-01-17] MEDS: ASPIRIN CHEWABLE 81 MG TABLET. PO SCH (09:53)
[2021-01-17] MEDS: TAMSULOSIN 0.4 MG CAP.ER.24H. PO SCH (09:53)
[2021-01-17] MEDS: THIAMINE 100 MG TABLET. PO SCH ×2 (09:54→20:48)
[2021-01-17] MEDS: FOLIC ACID 1 MG TABLET PO SCH (09:54)
[2021-01-17] MEDS: MULTIVITAMIN with MINERAL TABLET. PO SCH (09:54)
[2021-01-17] MEDS: LACTOBACILLUS RHAMNOSUS GG 1 CAPSULE. PO SCH ×2 (09:54→20:48)
[2021-01-17] MEDS: amLODIPine BESYLATE 10 MG TABLET PO SCH (09:54)
[2021-01-17] MEDS: CARVEDILOL 6.25 MG TABLET PO SCH ×2 (09:54→17:49)
[2021-01-17] MEDS: risperiDONE 0.25 MG TABLET. PO SCH ×3 (09:54→17:49)
[2021-01-17] MEDS: LIDOCAINE (700MG/PATCH) PATCH. TD SCH (09:55)
--- NOTE | 2021-01-17 14:12 | NUR ---
Nursing note: Pt has been wandering around the unit for most of the shift. He is pleasant, med compliant and cooperative. He has had no complaints this shift. He is exit seeking at times but is able to be redirected. Will continue to monitor.
[2021-01-17 15:46] VITALS: BP 158/78
[2021-01-17] MEDS: MELATONIN 3 MG TABLET PO SCH (20:48)
[2021-01-17] MEDS: traZODone 100 MG TABLET. PO SCH (20:48)
[2021-01-17] MEDS: DIVALPROEX ER 500 MG TAB.ER.24H PO SCH (20:48)
[2021-01-17] MEDS: ATORVASTATIN CALCIUM 20 MG TABLET PO SCH (20:48)
[2021-01-17] MEDS: AMITRIPTYLINE HCL 50 MG TABLET PO SCH (20:48)
--- NOTE | 2021-01-17 21:14 | PDOC ---
Exam Note: Gus Note: Please also refer to the separate dictated note~for this date of service dictated separately.~Patient seen individually. Discussed the patient with Nursing staff reviewed the chart.~Reviewed interim history and current functioning. Reviewed vital signs,~Labs/ Radiology~and current medications noted below. Continue current treatment with the changes noted in the dictated addendum note Assessment: Vital Signs/I&O: Vital Signs Date Time Temp Pulse Resp B/P (MAP) Pulse Ox O2 Delivery O2 Flow Rate FiO2 01/17/21 17:49 73 158/78 01/17/21 15:46 97.4 16 97 01/16/21 15:31 Room Air I & O 01/16/21 01/16/21 01/17/21 15:00 23:00 07:00 Intake Total 900 ml 480 ml Balance 900 ml 480 ml Current Medications: Meds: Current Medications Medications (Trade) Dose Ordered Sig/Evaristo Route PRN Reason Start Time Stop Time Status Last Admin Dose Admin Acetaminophen (Tylenol) 650 mg PRN Q6HRS PRN PO MILD PAIN / TEMP > 100.3'F 11/25/20 18:00 01/14/21 12:42 Multi-Ingredient Ointment (Analgesic [place]) 1 addison PRN QID PRN TP MUSCLE PAIN 11/25/20 18:00 Al Hydroxide/Mg Hydroxide (Mylanta Plus Xs) 15 ml PRN AFTMEALHC PRN PO DYSPEPSIA 11/25/20 18:00 12/10/20 18:52 Magnesium Hydroxide (Milk Of Magnesia) 2,400 mg PRN QHS PRN PO CONSTIPATION 11/25/20 18:00 12/13/20 08:36 Amlodipine Besylate (Norvasc) 10 mg DAILY PO 11/26/20 09:00 01/17/21 09:54 Aspirin (Aspirin Chewable) 81 mg DAILY PO 11/26/20 09:00 01/17/21 09:53 Carvedilol (Coreg) 6.25 mg BIDWMEALS PO 11/25/20 18:30 01/17/21 17:49 Lisinopril (Prinivil) 10 mg DAILY PO 11/26/20 09:00 11/26/20 16:16 DC Quetiapine Fumarate (SEROquel) 25 mg QHS PO 11/25/20 21:00 12/23/20 17:23 DC 12/22/20 20:04 Tamsulosin HCl (Flomax) 0.4 mg DAILY PO 11/26/20 09:00 01/17/21 09:53 Amoxicillin (Amoxil) 500 mg [id number] PO 11/25/20 21:00 12/02/20 14:01 DC 12/02/20 14:15 Atorvastatin Calcium (Lipitor) 40 mg QHS PO 11/25/20 21:00 01/17/21 20:48 Folic Acid (Folic Acid) 1 mg DAILY PO 11/26/20 09:00 01/17/21 09:54 Lidocaine (Lidoderm) 1 patch DAILY TD 11/26/20 09:00 01/17/21 09:55 Multivitamins/ Calcium (Thera-M Plus) 1 tab DAILY PO 11/26/20 09:00 01/17/21 09:54 Thiamine HCl (Vitamin B-1) 100 mg BID PO 11/25/20 21:00 01/17/21 20:48 Olanzapine (ZyPREXA ZYDIS) 2.5 mg PRN Q2HR PRN PO PSYCHOSIS 11/25/20 21:15 01/16/21 17:02 Trazodone HCl (Desyrel) 50 mg PRN QHS PRN PO INSOMNIA, MAY REPEAT IN 1HR 11/25/20 21:15 01/03/21 16:48 DC 01/03/21 02:21 Mirtazapine (Remeron) 7.5 mg QHS PO 11/26/20 21:00 11/28/20 12:23 DC 11/27/20 20:00 Lactobacillus Rhamnosus (Culturelle) 1 cap BID PO 11/27/20 09:00 01/17/21 20:48 Sertraline HCl (Zoloft) 25 mg DAILY PO 11/28/20 09:00 11/30/20 09:01 DC 11/30/20 08:39 Sertraline HCl (Zoloft) 50 mg DAILY PO 12/01/20 09:00 12/03/20 11:00 DC 12/03/20 08:05 Mirtazapine (Remeron) 15 mg QHS PO 11/28/20 21:00 11/29/20 18:47 DC 11/28/20 19:38 Hydroxyzine HCl (Atarax) 25 mg PRN Q2HR PRN PO ABDOMINAL CRAMPS 11/28/20 21:45 01/16/21 20:49 Lorazepam (Ativan) 0.5 mg PRN Q4HRS PRN PO ANXIETY / AGITATION 11/28/20 21:45 11/29/20 21:45 DC Amitriptyline HCl (Elavil) 25 mg QHS PO 11/29/20 21:00 12/23/20 17:23 DC 12/22/20 20:04 Melatonin (Melatonin) 3 mg QHS PO 11/29/20 21:00 01/17/21 20:48 Sertraline HCl (Zoloft) 75 mg DAILY PO 12/04/20 09:00 01/14/21 18:05 DC 01/14/21 08:49 Divalproex Sodium (Depakote Er) 500 mg QHS PO 12/02/20 21:00 12/05/20 12:29 DC 12/04/20 20:08 Divalproex Sodium (Depakote Er) 1,000 mg QHS PO 12/05/20 21:00 01/17/21 20:48 Quetiapine Fumarate (SEROquel) 12.5 mg DAILY PO 12/17/20 09:00 12/18/20 16:46 DC 12/18/20 08:01 Quetiapine Fumarate (SEROquel) 12.5 mg [id number] PO 12/19/20 09:00 12/23/20 17:23 DC 12/23/20 13:28 Quetiapine Fumarate (SEROquel) 25 mg TID PO 12/23/20 17:30 01/08/21 16:44 DC 01/08/21 12:48 Amitriptyline HCl (Elavil) 50 mg QHS PO 12/23/20 21:00 01/17/21 20:48 Furosemide (Lasix) 80 mg 1X ONCE PO 12/30/20 16:30 12/30/20 16:31 DC 12/30/20 16:27 Trazodone HCl (Desyrel) 100 mg QHS PO 01/03/21 21:00 01/17/21 20:48 Trazodone HCl (Desyrel) 100 mg PRN QHS PRN PO INSOMNIA, 01/03/21 17:00 01/13/21 22:12 Lactic Acid (Lac-Hydrin) 1 addison BID TP 01/07/21 21:00 01/17/21 20:49 Quetiapine Fumarate (SEROquel) 37.5 mg TID PO 01/08/21 21:00 01/15/21 16:18 DC 01/15/21 14:31 Sertraline HCl (Zoloft) 100 mg DAILY PO 01/15/21 09:00 01/17/21 09:53 Risperidone (RisperDAL) 0.25 mg 0900,1300,1700 PO 01/16/21 09:00 01/17/21 18:15 DC 01/17/21 17:49 Risperidone (RisperDAL) 0.5 mg 1X PO 01/15/21 16:30 01/17/21 18:19 DC 01/15/21 16:25 Risperidone (RisperDAL) 0.25 mg 0900,1700 PO 01/18/21 09:00 Risperidone (RisperDAL) 0.5 mg 1300 PO 01/18/21 13:00 I have reviewed the current psychotropics carefully including drug interactions. Risk benefit ratio favors no change other than as noted in my dictated progress note. Diagnosis: Problems: (1) Major neurocognitive disorder (2) Impulse control disorder, unspecified (3) Anxiety disorder, unspecified (4) Dementia, vascular, with depression (5) Dementia, vascular, with delusions (6) Dementia in Alzheimer's disease with depression (7) Dementia in Alzheimer's disease with delusions (8) Dementia of the Alzheimer's type with early onset with behavioral disturbance DONA BOTELLO MD Jan 17, 2021 21:14
--- NOTE | 2021-01-18 01:00 | NUR ---
Patient had been dressed in a onesie r/t pulling his brief down and urinating on his clothes. Patient was able to get his upper body out of the onesie several times. Patient walking in the hallway, wandering and entering peers rooms at times. He was able to be verbally redirected. Patient compliant with medications and cooperative with cares.
[2021-01-18 06:09] VITALS: BP 183/96
[2021-01-18] MEDS: THIAMINE 100 MG TABLET. PO SCH ×2 (08:12→20:02)
[2021-01-18] MEDS: CARVEDILOL 6.25 MG TABLET PO SCH ×2 (08:12→17:31)
[2021-01-18] MEDS: MULTIVITAMIN with MINERAL TABLET. PO SCH (08:13)
[2021-01-18] MEDS: ASPIRIN CHEWABLE 81 MG TABLET. PO SCH (08:13)
[2021-01-18] MEDS: LACTOBACILLUS RHAMNOSUS GG 1 CAPSULE. PO SCH ×2 (08:13→20:01)
[2021-01-18] MEDS: AMMONIUM LACTATE 12% TOPICAL LOTION 226GM BOTTLE. TP SCH ×2 (08:13→20:02)
[2021-01-18] MEDS: FOLIC ACID 1 MG TABLET PO SCH (08:13)
[2021-01-18] MEDS: amLODIPine BESYLATE 10 MG TABLET PO SCH (08:13)
[2021-01-18] MEDS: SERTRALINE 50 MG TABLET. PO SCH (08:13)
[2021-01-18] MEDS: TAMSULOSIN 0.4 MG CAP.ER.24H. PO SCH (08:13)
[2021-01-18] MEDS: LIDOCAINE (700MG/PATCH) PATCH. TD SCH (08:14)
[2021-01-18] MEDS: risperiDONE 0.25 MG TABLET. PO SCH ×2 (08:15→17:31)
--- NOTE | 2021-01-18 08:19 | PDOC ---
Exam Note: Gus Note: This note is a late entry for 01/16/2021 covers elements not covered in my initial note. Subjective: The patient was seen face to face in the morning of 01/16/2021 for a treatment team meeting with Mell Larios, Dolores Contreras and Denise (director of social services), Mikayla Fiore, activity therapy and Cm OVIEDO, discussed and reviewed the chart. The patient slept 6 hours previous night. Average 6-1/4 hours. He is agitated, somewhat delusional, difficulty with his wheelchair. He was exit seeking in the morning, calmer later in the morning. We will check UA to rule out UTI causing above symptoms. He does attend groups, sleeping well. Review of Systems: No CV, , pulmonary, eye, ENT system symptoms on review. Mental Status Exam: The patient is oriented to himself. Insight and judgment, recent and remote memory, attention and concentration, fund of knowledge is poor consistent with his diagnosis. Laboratory Data: Reviewed. Impression: Major neurocognitive disorder Alzheimer vascular with delusion, depression, behavioral disturbance. Anxiety disorder unspecified. Impulse control disorder unspecified. Plan: No change from initial note. Adjust as clinically indicated. Assessment: Vital Signs/I&O: Vital Signs Date Time Temp Pulse Resp B/P (MAP) Pulse Ox O2 Delivery O2 Flow Rate FiO2 01/18/21 08:13 83 183/96 01/18/21 06:09 97.7 18 97 01/16/21 15:31 Room Air I & O 01/17/21 01/17/21 01/18/21 15:00 23:00 07:00 Intake Total 720 ml 720 ml Balance 720 ml 720 ml Current Medications: Meds: Current Medications Medications (Trade) Dose Ordered Sig/Evaristo Route PRN Reason Start Time Stop Time Status Last Admin Dose Admin Acetaminophen (Tylenol) 650 mg PRN Q6HRS PRN PO MILD PAIN / TEMP > 100.3'F 11/25/20 18:00 01/14/21 12:42 Multi-Ingredient Ointment (Analgesic [place]) 1 addison PRN QID PRN TP MUSCLE PAIN 11/25/20 18:00 Al Hydroxide/Mg Hydroxide (Mylanta Plus Xs) 15 ml PRN AFTMEALHC PRN PO DYSPEPSIA 11/25/20 18:00 12/10/20 18:52 Magnesium Hydroxide (Milk Of Magnesia) 2,400 mg PRN QHS PRN PO CONSTIPATION 11/25/20 18:00 12/13/20 08:36 Amlodipine Besylate (Norvasc) 10 mg DAILY PO 11/26/20 09:00 01/18/21 08:13 Aspirin (Aspirin Chewable) 81 mg DAILY PO 11/26/20 09:00 01/18/21 08:13 Carvedilol (Coreg) 6.25 mg BIDWMEALS PO 11/25/20 18:30 01/18/21 08:12 Lisinopril (Prinivil) 10 mg DAILY PO 11/26/20 09:00 11/26/20 16:16 DC Quetiapine Fumarate (SEROquel) 25 mg QHS PO 11/25/20 21:00 12/23/20 17:23 DC 12/22/20 20:04 Tamsulosin HCl (Flomax) 0.4 mg DAILY PO 11/26/20 09:00 01/18/21 08:13 Amoxicillin (Amoxil) 500 mg [id number] PO 11/25/20 21:00 12/02/20 14:01 DC 12/02/20 14:15 Atorvastatin Calcium (Lipitor) 40 mg QHS PO 11/25/20 21:00 01/17/21 20:48 Folic Acid (Folic Acid) 1 mg DAILY PO 11/26/20 09:00 01/18/21 08:13 Lidocaine (Lidoderm) 1 patch DAILY TD 11/26/20 09:00 01/18/21 08:14 Multivitamins/ Calcium (Thera-M Plus) 1 tab DAILY PO 11/26/20 09:00 01/18/21 08:13 Thiamine HCl (Vitamin B-1) 100 mg BID PO 11/25/20 21:00 01/18/21 08:12 Olanzapine (ZyPREXA ZYDIS) 2.5 mg PRN Q2HR PRN PO PSYCHOSIS 11/25/20 21:15 01/16/21 17:02 Trazodone HCl (Desyrel) 50 mg PRN QHS PRN PO INSOMNIA, MAY REPEAT IN 1HR 11/25/20 21:15 01/03/21 16:48 DC 01/03/21 02:21 Mirtazapine (Remeron) 7.5 mg QHS PO 11/26/20 21:00 11/28/20 12:23 DC 11/27/20 20:00 Lactobacillus Rhamnosus (Culturelle) 1 cap BID PO 11/27/20 09:00 01/18/21 08:13 Sertraline HCl (Zoloft) 25 mg DAILY PO 11/28/20 09:00 11/30/20 09:01 DC 11/30/20 08:39 Sertraline HCl (Zoloft) 50 mg DAILY PO 12/01/20 09:00 12/03/20 11:00 DC 12/03/20 08:05 Mirtazapine (Remeron) 15 mg QHS PO 11/28/20 21:00 11/29/20 18:47 DC 11/28/20 19:38 Hydroxyzine HCl (Atarax) 25 mg PRN Q2HR PRN PO ABDOMINAL CRAMPS 11/28/20 21:45 01/16/21 20:49 Lorazepam (Ativan) 0.5 mg PRN Q4HRS PRN PO ANXIETY / AGITATION 11/28/20 21:45 11/29/20 21:45 DC Amitriptyline HCl (Elavil) 25 mg QHS PO 11/29/20 21:00 12/23/20 17:23 DC 12/22/20 20:04 Melatonin (Melatonin) 3 mg QHS PO 11/29/20 21:00 01/17/21 20:48 Sertraline HCl (Zoloft) 75 mg DAILY PO 12/04/20 09:00 01/14/21 18:05 DC 01/14/21 08:49 Divalproex Sodium (Depakote Er) 500 mg QHS PO 12/02/20 21:00 12/05/20 12:29 DC 12/04/20 20:08 Divalproex Sodium (Depakote Er) 1,000 mg QHS PO 12/05/20 21:00 01/17/21 20:48 Quetiapine Fumarate (SEROquel) 12.5 mg DAILY PO 12/17/20 09:00 12/18/20 16:46 DC 12/18/20 08:01 Quetiapine Fumarate (SEROquel) 12.5 mg [id number] PO 12/19/20 09:00 12/23/20 17:23 DC 12/23/20 13:28 Quetiapine Fumarate (SEROquel) 25 mg TID PO 12/23/20 17:30 01/08/21 16:44 DC 01/08/21 12:48 Amitriptyline HCl (Elavil) 50 mg QHS PO 12/23/20 21:00 01/17/21 20:48 Furosemide (Lasix) 80 mg 1X ONCE PO 12/30/20 16:30 12/30/20 16:31 DC 12/30/20 16:27 Trazodone HCl (Desyrel) 100 mg QHS PO 01/03/21 21:00 01/17/21 20:48 Trazodone HCl (Desyrel) 100 mg PRN QHS PRN PO INSOMNIA, 01/03/21 17:00 01/13/21 22:12 Lactic Acid (Lac-Hydrin) 1 addison BID TP 01/07/21 21:00 01/18/21 08:13 Quetiapine Fumarate (SEROquel) 37.5 mg TID PO 01/08/21 21:00 01/15/21 16:18 DC 01/15/21 14:31 Sertraline HCl (Zoloft) 100 mg DAILY PO 01/15/21 09:00 01/18/21 08:13 Risperidone (RisperDAL) 0.25 mg 0900,1300,1700 PO 01/16/21 09:00 01/17/21 18:15 DC 01/17/21 17:49 Risperidone (RisperDAL) 0.5 mg 1X PO 01/15/21 16:30 01/17/21 18:19 DC 01/15/21 16:25 Risperidone (RisperDAL) 0.25 mg 0900,1700 PO 01/18/21 09:00 01/18/21 08:15 Risperidone (RisperDAL) 0.5 mg 1300 PO 01/18/21 13:00 Current Medications Medications (Trade) Dose Ordered Sig/Evaristo Route PRN Reason Start Time Stop Time Status Last Admin Dose Admin Risperidone (RisperDAL) 0.25 mg 0900,1700 PO 01/18/21 09:00 01/18/21 08:15 I have reviewed the current psychotropics carefully including drug interactions. Risk benefit ratio favors no change other than as noted in my dictated progress note. 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
--- NOTE | 2021-01-18 08:53 | PDOC ---
Exam Note: Gus Note: This note is a late entry for 01/17/2021 covers elements not covered in my initial note. Subjective: The patient was seen face to face in the evening of 01/17/2021 with Radha OVIEDO, discussed and reviewed the chart. The patient slept 6-1/2 hours previous night. He is confused, anxious, exit seeking, angry at staff. He gets more agitated, paranoid in the afternoon. We will increase the 1300 Risperdal from 0.25 mg to 0.5 mg. Review of Systems: No CV, , pulmonary, eye, ENT system symptoms on review. Mental Status Exam: The patient is oriented to himself. Insight and judgment, recent and remote memory, attention and concentration, fund of knowledge is poor consistent with his diagnosis. Laboratory Data: Reviewed. Impression: Major neurocognitive disorder Alzheimer vascular with delusion, depression, behavioral disturbance. Anxiety disorder unspecified. Impulse control disorder unspecified. Plan: No change from initial note. Assessment: Vital Signs/I&O: Vital Signs Date Time Temp Pulse Resp B/P (MAP) Pulse Ox O2 Delivery O2 Flow Rate FiO2 01/18/21 08:13 83 183/96 01/18/21 06:09 97.7 18 97 01/16/21 15:31 Room Air I & O 01/17/21 01/17/21 01/18/21 15:00 23:00 07:00 Intake Total 720 ml 720 ml Balance 720 ml 720 ml Current Medications: Meds: Current Medications Medications (Trade) Dose Ordered Sig/Evaristo Route PRN Reason Start Time Stop Time Status Last Admin Dose Admin Acetaminophen (Tylenol) 650 mg PRN Q6HRS PRN PO MILD PAIN / TEMP > 100.3'F 11/25/20 18:00 01/14/21 12:42 Multi-Ingredient Ointment (Analgesic [place]) 1 addison PRN QID PRN TP MUSCLE PAIN 11/25/20 18:00 Al Hydroxide/Mg Hydroxide (Mylanta Plus Xs) 15 ml PRN AFTMEALHC PRN PO DYSPEPSIA 11/25/20 18:00 12/10/20 18:52 Magnesium Hydroxide (Milk Of Magnesia) 2,400 mg PRN QHS PRN PO CONSTIPATION 11/25/20 18:00 12/13/20 08:36 Amlodipine Besylate (Norvasc) 10 mg DAILY PO 11/26/20 09:00 01/18/21 08:13 Aspirin (Aspirin Chewable) 81 mg DAILY PO 11/26/20 09:00 01/18/21 08:13 Carvedilol (Coreg) 6.25 mg BIDWMEALS PO 11/25/20 18:30 01/18/21 08:12 Lisinopril (Prinivil) 10 mg DAILY PO 11/26/20 09:00 11/26/20 16:16 DC Quetiapine Fumarate (SEROquel) 25 mg QHS PO 11/25/20 21:00 12/23/20 17:23 DC 12/22/20 20:04 Tamsulosin HCl (Flomax) 0.4 mg DAILY PO 11/26/20 09:00 01/18/21 08:13 Amoxicillin (Amoxil) 500 mg [id number] PO 11/25/20 21:00 12/02/20 14:01 DC 12/02/20 14:15 Atorvastatin Calcium (Lipitor) 40 mg QHS PO 11/25/20 21:00 01/17/21 20:48 Folic Acid (Folic Acid) 1 mg DAILY PO 11/26/20 09:00 01/18/21 08:13 Lidocaine (Lidoderm) 1 patch DAILY TD 11/26/20 09:00 01/18/21 08:14 Multivitamins/ Calcium (Thera-M Plus) 1 tab DAILY PO 11/26/20 09:00 01/18/21 08:13 Thiamine HCl (Vitamin B-1) 100 mg BID PO 11/25/20 21:00 01/18/21 08:12 Olanzapine (ZyPREXA ZYDIS) 2.5 mg PRN Q2HR PRN PO PSYCHOSIS 11/25/20 21:15 01/16/21 17:02 Trazodone HCl (Desyrel) 50 mg PRN QHS PRN PO INSOMNIA, MAY REPEAT IN 1HR 11/25/20 21:15 01/03/21 16:48 DC 01/03/21 02:21 Mirtazapine (Remeron) 7.5 mg QHS PO 11/26/20 21:00 11/28/20 12:23 DC 11/27/20 20:00 Lactobacillus Rhamnosus (Culturelle) 1 cap BID PO 11/27/20 09:00 01/18/21 08:13 Sertraline HCl (Zoloft) 25 mg DAILY PO 11/28/20 09:00 11/30/20 09:01 DC 11/30/20 08:39 Sertraline HCl (Zoloft) 50 mg DAILY PO 12/01/20 09:00 12/03/20 11:00 DC 12/03/20 08:05 Mirtazapine (Remeron) 15 mg QHS PO 11/28/20 21:00 11/29/20 18:47 DC 11/28/20 19:38 Hydroxyzine HCl (Atarax) 25 mg PRN Q2HR PRN PO ABDOMINAL CRAMPS 11/28/20 21:45 01/16/21 20:49 Lorazepam (Ativan) 0.5 mg PRN Q4HRS PRN PO ANXIETY / AGITATION 11/28/20 21:45 11/29/20 21:45 DC Amitriptyline HCl (Elavil) 25 mg QHS PO 11/29/20 21:00 12/23/20 17:23 DC 12/22/20 20:04 Melatonin (Melatonin) 3 mg QHS PO 11/29/20 21:00 01/17/21 20:48 Sertraline HCl (Zoloft) 75 mg DAILY PO 12/04/20 09:00 01/14/21 18:05 DC 01/14/21 08:49 Divalproex Sodium (Depakote Er) 500 mg QHS PO 12/02/20 21:00 12/05/20 12:29 DC 12/04/20 20:08 Divalproex Sodium (Depakote Er) 1,000 mg QHS PO 12/05/20 21:00 01/17/21 20:48 Quetiapine Fumarate (SEROquel) 12.5 mg DAILY PO 12/17/20 09:00 12/18/20 16:46 DC 12/18/20 08:01 Quetiapine Fumarate (SEROquel) 12.5 mg [id number] PO 12/19/20 09:00 12/23/20 17:23 DC 12/23/20 13:28 Quetiapine Fumarate (SEROquel) 25 mg TID PO 12/23/20 17:30 01/08/21 16:44 DC 01/08/21 12:48 Amitriptyline HCl (Elavil) 50 mg QHS PO 12/23/20 21:00 01/17/21 20:48 Furosemide (Lasix) 80 mg 1X ONCE PO 12/30/20 16:30 12/30/20 16:31 DC 12/30/20 16:27 Trazodone HCl (Desyrel) 100 mg QHS PO 01/03/21 21:00 01/17/21 20:48 Trazodone HCl (Desyrel) 100 mg PRN QHS PRN PO INSOMNIA, 01/03/21 17:00 01/13/21 22:12 Lactic Acid (Lac-Hydrin) 1 addison BID TP 01/07/21 21:00 01/18/21 08:13 Quetiapine Fumarate (SEROquel) 37.5 mg TID PO 01/08/21 21:00 01/15/21 16:18 DC 01/15/21 14:31 Sertraline HCl (Zoloft) 100 mg DAILY PO 01/15/21 09:00 01/18/21 08:13 Risperidone (RisperDAL) 0.25 mg 0900,1300,1700 PO 01/16/21 09:00 01/17/21 18:15 DC 01/17/21 17:49 Risperidone (RisperDAL) 0.5 mg 1X PO 01/15/21 16:30 01/17/21 18:19 DC 01/15/21 16:25 Risperidone (RisperDAL) 0.25 mg 0900,1700 PO 01/18/21 09:00 01/18/21 08:15 Risperidone (RisperDAL) 0.5 mg 1300 PO 01/18/21 13:00 Current Medications Medications (Trade) Dose Ordered Sig/Evaristo Route PRN Reason Start Time Stop Time Status Last Admin Dose Admin Risperidone (RisperDAL) 0.25 mg 0900,1700 PO 01/18/21 09:00 01/18/21 08:15 I have reviewed the current psychotropics carefully including drug interactions. Risk benefit ratio favors no change other than as noted in my dictated progress note. Diagnosis: Problems: (1) Major neurocognitive disorder (2) Impulse control disorder, unspecified (3) Anxiety disorder, unspecified (4) Dementia, vascular, with depression (5) Dementia, vascular, with delusions (6) Dementia in Alzheimer's disease with depression (7) Dementia in Alzheimer's disease with delusions (8) Dementia of the Alzheimer's type with early onset with behavioral disturbance DONA BOTELLO MD Jan 18, 2021 08:53
--- NOTE | 2021-01-18 10:59 | NUR ---
MARY sent updated notes to Bonnie at [facility] per her request. Bonnie has also requested that pt receive a new Covid swab; although pt received one on Saturday. Bonnie wants to make sure that pt behaviors have not worsened. MARY informed Bonnie that if the DON had any questions, pt nurse would be happy to answer them. Bonnie will call MARY back with transport time.
[2021-01-18] MEDS ORDERED: risperiDONE 0.25 MG TABLET. PO SCH (13:00)
--- NOTE | 2021-01-18 14:48 | NUR ---
SW received call from [facility]. After reviewing the notes, pt is not going to be able to discharge. They are not willing to accept pt behaviors and increased aggression, which has increased since they received pt referral. SW questioned if pt could be reconsidered as medications were increased. They have agreed to re-eval pt if his behaviors can decrease and the notes show it.
[2021-01-18 16:06] VITALS: BP 131/80
--- NOTE | 2021-01-18 18:07 | NUR ---
Nursing note: Pt has been wandering around the unit this shift. He is pleasantly confused and med compliant. He has had no complaints this shift. Will continue to monitor.
[2021-01-18] MEDS: hydrOXYzine HCL 25 MG TABLET PO PRN (19:23)
[2021-01-18] MEDS: traZODone 100 MG TABLET. PO SCH (20:01)
[2021-01-18] MEDS: DIVALPROEX ER 500 MG TAB.ER.24H PO SCH (20:01)
[2021-01-18] MEDS: AMITRIPTYLINE HCL 50 MG TABLET PO SCH (20:01)
[2021-01-18] MEDS: MELATONIN 3 MG TABLET PO SCH (20:01)
[2021-01-18] MEDS: ATORVASTATIN CALCIUM 20 MG TABLET PO SCH (20:01)
--- NOTE | 2021-01-18 21:10 | PDOC ---
Exam Note: Gus Note: Please also refer to the separate dictated note~for this date of service dictated separately.~Patient seen individually. Discussed the patient with Nursing staff reviewed the chart.~Reviewed interim history and current functioning. Reviewed vital signs,~Labs/ Radiology~and current medications noted below. Continue current treatment with the changes noted in the dictated addendum note Assessment: Vital Signs/I&O: Vital Signs Date Time Temp Pulse Resp B/P (MAP) Pulse Ox O2 Delivery O2 Flow Rate FiO2 01/18/21 17:31 88 131/80 01/18/21 16:06 97.8 16 94 01/16/21 15:31 Room Air I & O 01/17/21 01/17/21 01/18/21 14:59 22:59 06:59 Intake Total 720 ml 720 ml Balance 720 ml 720 ml Labs: Laboratory Tests Test 01/18/21 11:30 Coronavirus (PCR) Not detected (Not Detected) Current Medications: Meds: Laboratory Tests Test 01/18/21 11:30 Coronavirus (PCR) Not detected Current Medications Medications (Trade) Dose Ordered Sig/Evaristo Route PRN Reason Start Time Stop Time Status Last Admin Dose Admin Acetaminophen (Tylenol) 650 mg PRN Q6HRS PRN PO MILD PAIN / TEMP > 100.3'F 11/25/20 18:00 01/14/21 12:42 Multi-Ingredient Ointment (Analgesic [place]) 1 addison PRN QID PRN TP MUSCLE PAIN 11/25/20 18:00 Al Hydroxide/Mg Hydroxide (Mylanta Plus Xs) 15 ml PRN AFTMEALHC PRN PO DYSPEPSIA 11/25/20 18:00 12/10/20 18:52 Magnesium Hydroxide (Milk Of Magnesia) 2,400 mg PRN QHS PRN PO CONSTIPATION 11/25/20 18:00 12/13/20 08:36 Amlodipine Besylate (Norvasc) 10 mg DAILY PO 11/26/20 09:00 01/18/21 08:13 Aspirin (Aspirin Chewable) 81 mg DAILY PO 11/26/20 09:00 01/18/21 08:13 Carvedilol (Coreg) 6.25 mg BIDWMEALS PO 11/25/20 18:30 01/18/21 17:31 Lisinopril (Prinivil) 10 mg DAILY PO 11/26/20 09:00 11/26/20 16:16 DC Quetiapine Fumarate (SEROquel) 25 mg QHS PO 11/25/20 21:00 12/23/20 17:23 DC 12/22/20 20:04 Tamsulosin HCl (Flomax) 0.4 mg DAILY PO 11/26/20 09:00 01/18/21 08:13 Amoxicillin (Amoxil) 500 mg [id number] PO 11/25/20 21:00 12/02/20 14:01 DC 12/02/20 14:15 Atorvastatin Calcium (Lipitor) 40 mg QHS PO 11/25/20 21:00 01/18/21 20:01 Folic Acid (Folic Acid) 1 mg DAILY PO 11/26/20 09:00 01/18/21 08:13 Lidocaine (Lidoderm) 1 patch DAILY TD 11/26/20 09:00 01/18/21 08:14 Multivitamins/ Calcium (Thera-M Plus) 1 tab DAILY PO 11/26/20 09:00 01/18/21 08:13 Thiamine HCl (Vitamin B-1) 100 mg BID PO 11/25/20 21:00 01/18/21 20:02 Olanzapine (ZyPREXA ZYDIS) 2.5 mg PRN Q2HR PRN PO PSYCHOSIS 11/25/20 21:15 01/16/21 17:02 Trazodone HCl (Desyrel) 50 mg PRN QHS PRN PO INSOMNIA, MAY REPEAT IN 1HR 11/25/20 21:15 01/03/21 16:48 DC 01/03/21 02:21 Mirtazapine (Remeron) 7.5 mg QHS PO 11/26/20 21:00 11/28/20 12:23 DC 11/27/20 20:00 Lactobacillus Rhamnosus (Culturelle) 1 cap BID PO 11/27/20 09:00 01/18/21 20:01 Sertraline HCl (Zoloft) 25 mg DAILY PO 11/28/20 09:00 11/30/20 09:01 DC 11/30/20 08:39 Sertraline HCl (Zoloft) 50 mg DAILY PO 12/01/20 09:00 12/03/20 11:00 DC 12/03/20 08:05 Mirtazapine (Remeron) 15 mg QHS PO 11/28/20 21:00 11/29/20 18:47 DC 11/28/20 19:38 Hydroxyzine HCl (Atarax) 25 mg PRN Q2HR PRN PO ABDOMINAL CRAMPS 11/28/20 21:45 01/18/21 19:23 Lorazepam (Ativan) 0.5 mg PRN Q4HRS PRN PO ANXIETY / AGITATION 11/28/20 21:45 11/29/20 21:45 DC Amitriptyline HCl (Elavil) 25 mg QHS PO 11/29/20 21:00 12/23/20 17:23 DC 12/22/20 20:04 Melatonin (Melatonin) 3 mg QHS PO 11/29/20 21:00 01/18/21 20:01 Sertraline HCl (Zoloft) 75 mg DAILY PO 12/04/20 09:00 01/14/21 18:05 DC 01/14/21 08:49 Divalproex Sodium (Depakote Er) 500 mg QHS PO 12/02/20 21:00 12/05/20 12:29 DC 12/04/20 20:08 Divalproex Sodium (Depakote Er) 1,000 mg QHS PO 12/05/20 21:00 01/18/21 20:01 Quetiapine Fumarate (SEROquel) 12.5 mg DAILY PO 12/17/20 09:00 12/18/20 16:46 DC 12/18/20 08:01 Quetiapine Fumarate (SEROquel) 12.5 mg [id number] PO 12/19/20 09:00 12/23/20 17:23 DC 12/23/20 13:28 Quetiapine Fumarate (SEROquel) 25 mg TID PO 12/23/20 17:30 01/08/21 16:44 DC 01/08/21 12:48 Amitriptyline HCl (Elavil) 50 mg QHS PO 12/23/20 21:00 01/18/21 20:01 Furosemide (Lasix) 80 mg 1X ONCE PO 12/30/20 16:30 12/30/20 16:31 DC 12/30/20 16:27 Trazodone HCl (Desyrel) 100 mg QHS PO 01/03/21 21:00 01/18/21 20:01 Trazodone HCl (Desyrel) 100 mg PRN QHS PRN PO INSOMNIA, 01/03/21 17:00 01/13/21 22:12 Lactic Acid (Lac-Hydrin) 1 addison BID TP 01/07/21 21:00 01/18/21 20:02 Quetiapine Fumarate (SEROquel) 37.5 mg TID PO 01/08/21 21:00 01/15/21 16:18 DC 01/15/21 14:31 Sertraline HCl (Zoloft) 100 mg DAILY PO 01/15/21 09:00 01/18/21 08:13 Risperidone (RisperDAL) 0.25 mg 0900,1300,1700 PO 01/16/21 09:00 01/17/21 18:15 DC 01/17/21 17:49 Risperidone (RisperDAL) 0.5 mg 1X PO 01/15/21 16:30 01/17/21 18:19 DC 01/15/21 16:25 Risperidone (RisperDAL) 0.25 mg 0900,1700 PO 01/18/21 09:00 01/18/21 18:47 DC 01/18/21 17:31 Risperidone (RisperDAL) 0.5 mg 1300 PO 01/18/21 13:00 01/18/21 18:47 DC 01/18/21 13:04 Risperidone (RisperDAL) 0.5 mg 0900,1300,1700 PO 01/19/21 09:00 Current Medications Medications (Trade) Dose Ordered Sig/Evaristo Route PRN Reason Start Time Stop Time Status Last Admin Dose Admin Risperidone (RisperDAL) 0.25 mg 0900,1700 PO 01/18/21 09:00 01/18/21 18:47 DC 01/18/21 17:31 Risperidone (RisperDAL) 0.5 mg 1300 PO 01/18/21 13:00 01/18/21 18:47 DC 01/18/21 13:04 I have reviewed the current psychotropics carefully including drug interactions. Risk benefit ratio favors no change other than as noted in my dictated progress note. Diagnosis: Problems: (1) Major neurocognitive disorder (2) Impulse control disorder, unspecified (3) Anxiety disorder, unspecified (4) Dementia, vascular, with depression (5) Dementia, vascular, with delusions (6) Dementia in Alzheimer's disease with depression (7) Dementia in Alzheimer's disease with delusions (8) Dementia of the Alzheimer's type with early onset with behavioral disturbance DONA BOTELLO MD Jan 18, 2021 21:10
--- NOTE | 2021-01-18 22:36 | NUR ---
Pt taken [address] during shift change this evening. Pt was intrusive with female peer and became agitated and combative with redirection. PRN Zyprexa administered at that time. Pt calm in west hallway and was later taken to bed without incident. Pt compliant with whole medications.
--- NOTE | 2021-01-18 23:40 | NUR ---
Pt restless in bed repeatedly setting off bed alarm. Repeat Trazodone and Zyprexa administered.
[2021-01-18] MEDS: traZODone 100 MG TABLET. PO PRN (23:42)
[2021-01-19 05:13] VITALS: BP 142/72
[2021-01-19] MEDS: LACTOBACILLUS RHAMNOSUS GG 1 CAPSULE. PO SCH ×2 (07:39→19:41)
[2021-01-19] MEDS: TAMSULOSIN 0.4 MG CAP.ER.24H. PO SCH (07:39)
[2021-01-19] MEDS: ASPIRIN CHEWABLE 81 MG TABLET. PO SCH (07:40)
[2021-01-19] MEDS: MULTIVITAMIN with MINERAL TABLET. PO SCH (07:40)
[2021-01-19] MEDS: THIAMINE 100 MG TABLET. PO SCH ×2 (07:40→19:41)
[2021-01-19] MEDS: CARVEDILOL 6.25 MG TABLET PO SCH ×2 (07:40→17:09)
[2021-01-19] MEDS: FOLIC ACID 1 MG TABLET PO SCH (07:40)
[2021-01-19] MEDS: SERTRALINE 50 MG TABLET. PO SCH (07:41)
[2021-01-19] MEDS: amLODIPine BESYLATE 10 MG TABLET PO SCH (07:41)
[2021-01-19] MEDS: LIDOCAINE (700MG/PATCH) PATCH. TD SCH (07:42)
[2021-01-19] MEDS: AMMONIUM LACTATE 12% TOPICAL LOTION 226GM BOTTLE. TP SCH ×2 (07:42→21:00)
[2021-01-19] MEDS: risperiDONE 0.5 MG TABLET. PO SCH ×3 (07:53→17:09)
--- NOTE | 2021-01-19 08:40 | NUR ---
Nursing note: Pt was in the dining room for breakfast at time of AM med pass and assessment. He was pleasant and med compliant. He denied having any pain at the time. He has been walking around the unit this morning and socializing with peers at breakfast. He continues to be in the dining room at this time. Will continue to monitor.
--- NOTE | 2021-01-19 08:44 | PDOC ---
Exam Note: Gus Note: This note is a late entry for 01/18/2021 covers elements not covered in my initial note. Subjective: The patient was seen face to face in the evening of 01/18/2021 with Radha OVIEDO, discussed and reviewed the chart. The patient slept 5-3/4 hours previous night. Previous night the patient appeared more confused, took his briefs off and that was soiled with bowel movement and had a mess all over his room. He remains confused, wanders the hallways, less agitated today, quite appropriate, interactive with me individually. Also discussed the patient with [place], psych social worker. [facility] is unable to accept the patient till he is more stable. In fact he was quite stable 3 days back but little restless last couple of days. He is better today. Review of Systems: No CV, , pulmonary, eye, ENT system symptoms on review. Mental Status Exam: The patient is oriented to himself. Insight and judgment, recent and remote memory, attention and concentration, fund of knowledge is poor consistent with his diagnosis. Laboratory Data: Reviewed. Impression: Major neurocognitive disorder Alzheimer vascular with delusion, depression, behavioral disturbance. Anxiety disorder unspecified. Impulse control disorder unspecified. Plan: The patient is on Risperdal 0.25 mg 0900, 1700 and 0.5 mg h.s. We will change this to 0.5 mg t.i.d. Maintain rest of the psychotropics unchanged. Assessment: Vital Signs/I&O: Vital Signs Date Time Temp Pulse Resp B/P (MAP) Pulse Ox O2 Delivery O2 Flow Rate FiO2 01/19/21 07:41 60 142/72 01/19/21 05:13 97.6 18 97 01/16/21 15:31 Room Air I & O 01/18/21 01/18/21 01/19/21 15:00 23:00 07:00 Intake Total 1080 ml 480 ml Balance 1080 ml 480 ml Labs: Laboratory Tests Test 01/18/21 11:30 Coronavirus (PCR) Not detected (Not Detected) Current Medications: Meds: Laboratory Tests Test 01/18/21 11:30 Coronavirus (PCR) Not detected Current Medications Medications (Trade) Dose Ordered Sig/Evaristo Route PRN Reason Start Time Stop Time Status Last Admin Dose Admin Acetaminophen (Tylenol) 650 mg PRN Q6HRS PRN PO MILD PAIN / TEMP > 100.3'F 11/25/20 18:00 01/14/21 12:42 Multi-Ingredient Ointment (Analgesic [place]) 1 addison PRN QID PRN TP MUSCLE PAIN 11/25/20 18:00 Al Hydroxide/Mg Hydroxide (Mylanta Plus Xs) 15 ml PRN AFTMEALHC PRN PO DYSPEPSIA 11/25/20 18:00 12/10/20 18:52 Magnesium Hydroxide (Milk Of Magnesia) 2,400 mg PRN QHS PRN PO CONSTIPATION 11/25/20 18:00 12/13/20 08:36 Amlodipine Besylate (Norvasc) 10 mg DAILY PO 11/26/20 09:00 01/19/21 07:41 Aspirin (Aspirin Chewable) 81 mg DAILY PO 11/26/20 09:00 01/19/21 07:40 Carvedilol (Coreg) 6.25 mg BIDWMEALS PO 11/25/20 18:30 01/19/21 07:40 Lisinopril (Prinivil) 10 mg DAILY PO 11/26/20 09:00 11/26/20 16:16 DC Quetiapine Fumarate (SEROquel) 25 mg QHS PO 11/25/20 21:00 12/23/20 17:23 DC 12/22/20 20:04 Tamsulosin HCl (Flomax) 0.4 mg DAILY PO 11/26/20 09:00 01/19/21 07:39 Amoxicillin (Amoxil) 500 mg [id number] PO 11/25/20 21:00 12/02/20 14:01 DC 12/02/20 14:15 Atorvastatin Calcium (Lipitor) 40 mg QHS PO 11/25/20 21:00 01/18/21 20:01 Folic Acid (Folic Acid) 1 mg DAILY PO 11/26/20 09:00 01/19/21 07:40 Lidocaine (Lidoderm) 1 patch DAILY TD 11/26/20 09:00 01/19/21 07:42 Multivitamins/ Calcium (Thera-M Plus) 1 tab DAILY PO 11/26/20 09:00 01/19/21 07:40 Thiamine HCl (Vitamin B-1) 100 mg BID PO 11/25/20 21:00 01/19/21 07:40 Olanzapine (ZyPREXA ZYDIS) 2.5 mg PRN Q2HR PRN PO PSYCHOSIS 11/25/20 21:15 01/18/21 23:42 Trazodone HCl (Desyrel) 50 mg PRN QHS PRN PO INSOMNIA, MAY REPEAT IN 1HR 11/25/20 21:15 01/03/21 16:48 DC 01/03/21 02:21 Mirtazapine (Remeron) 7.5 mg QHS PO 11/26/20 21:00 11/28/20 12:23 DC 11/27/20 20:00 Lactobacillus Rhamnosus (Culturelle) 1 cap BID PO 11/27/20 09:00 01/19/21 07:39 Sertraline HCl (Zoloft) 25 mg DAILY PO 11/28/20 09:00 11/30/20 09:01 DC 11/30/20 08:39 Sertraline HCl (Zoloft) 50 mg DAILY PO 12/01/20 09:00 12/03/20 11:00 DC 12/03/20 08:05 Mirtazapine (Remeron) 15 mg QHS PO 11/28/20 21:00 11/29/20 18:47 DC 11/28/20 19:38 Hydroxyzine HCl (Atarax) 25 mg PRN Q2HR PRN PO ABDOMINAL CRAMPS 11/28/20 21:45 01/18/21 19:23 Lorazepam (Ativan) 0.5 mg PRN Q4HRS PRN PO ANXIETY / AGITATION 11/28/20 21:45 11/29/20 21:45 DC Amitriptyline HCl (Elavil) 25 mg QHS PO 11/29/20 21:00 12/23/20 17:23 DC 12/22/20 20:04 Melatonin (Melatonin) 3 mg QHS PO 11/29/20 21:00 01/18/21 20:01 Sertraline HCl (Zoloft) 75 mg DAILY PO 12/04/20 09:00 01/14/21 18:05 DC 01/14/21 08:49 Divalproex Sodium (Depakote Er) 500 mg QHS PO 12/02/20 21:00 12/05/20 12:29 DC 12/04/20 20:08 Divalproex Sodium (Depakote Er) 1,000 mg QHS PO 12/05/20 21:00 01/18/21 20:01 Quetiapine Fumarate (SEROquel) 12.5 mg DAILY PO 12/17/20 09:00 12/18/20 16:46 DC 12/18/20 08:01 Quetiapine Fumarate (SEROquel) 12.5 mg [id number] PO 12/19/20 09:00 12/23/20 17:23 DC 12/23/20 13:28 Quetiapine Fumarate (SEROquel) 25 mg TID PO 12/23/20 17:30 01/08/21 16:44 DC 01/08/21 12:48 Amitriptyline HCl (Elavil) 50 mg QHS PO 12/23/20 21:00 01/18/21 20:01 Furosemide (Lasix) 80 mg 1X ONCE PO 12/30/20 16:30 12/30/20 16:31 DC 12/30/20 16:27 Trazodone HCl (Desyrel) 100 mg QHS PO 01/03/21 21:00 01/18/21 20:01 Trazodone HCl (Desyrel) 100 mg PRN QHS PRN PO INSOMNIA, 01/03/21 17:00 01/18/21 23:42 Lactic Acid (Lac-Hydrin) 1 addison BID TP 01/07/21 21:00 01/19/21 07:42 Quetiapine Fumarate (SEROquel) 37.5 mg TID PO 01/08/21 21:00 01/15/21 16:18 DC 01/15/21 14:31 Sertraline HCl (Zoloft) 100 mg DAILY PO 01/15/21 09:00 01/19/21 07:41 Risperidone (RisperDAL) 0.25 mg 0900,1300,1700 PO 01/16/21 09:00 01/17/21 18:15 DC 01/17/21 17:49 Risperidone (RisperDAL) 0.5 mg 1X PO 01/15/21 16:30 01/17/21 18:19 DC 01/15/21 16:25 Risperidone (RisperDAL) 0.25 mg 0900,1700 PO 01/18/21 09:00 01/18/21 18:47 DC 01/18/21 17:31 Risperidone (RisperDAL) 0.5 mg 1300 PO 01/18/21 13:00 01/18/21 18:47 DC 01/18/21 13:04 Risperidone (RisperDAL) 0.5 mg 0900,1300,1700 PO 01/19/21 09:00 01/19/21 07:53 Current Medications Medications (Trade) Dose Ordered Sig/Evaristo Route PRN Reason Start Time Stop Time Status Last Admin Dose Admin Risperidone (RisperDAL) 0.25 mg 0900,1700 PO 01/18/21 09:00 01/18/21 18:47 DC 01/18/21 17:31 Risperidone (RisperDAL) 0.5 mg 1300 PO 01/18/21 13:00 01/18/21 18:47 DC 01/18/21 13:04 Risperidone (RisperDAL) 0.5 mg 0900,1300,1700 PO 01/19/21 09:00 01/19/21 07:53 I have reviewed the current psychotropics carefully including drug interactions. Risk benefit ratio favors no change other than as noted in my dictated progress note. Diagnosis: Problems: (1) Major neurocognitive disorder (2) Impulse control disorder, unspecified (3) Anxiety disorder, unspecified (4) Dementia, vascular, with depression (5) Dementia, vascular, with delusions (6) Dementia in Alzheimer's disease with depression (7) Dementia in Alzheimer's disease with delusions (8) Dementia of the Alzheimer's type with early onset with behavioral disturbance DONA BOTELLO MD Jan 19, 2021 08:44
--- NOTE | 2021-01-19 08:57 | NUR ---
MARY emailed pt guardian, Mell, to let her know that in the notes sent to [facility], they did not believe they could handle pt with his current behaviors. Pt will have an increase in his medications to have his behaviors more manageable and hopefully less aggressive. If that his the case, they will be more than happy to re-evaluate him. MARY will plan to keep pt guardian up to date.
[2021-01-19 15:24] VITALS: BP 157/85
[2021-01-19] MEDS: ATORVASTATIN CALCIUM 20 MG TABLET PO SCH (19:40)
[2021-01-19] MEDS: traZODone 100 MG TABLET. PO SCH (19:40)
[2021-01-19] MEDS: DIVALPROEX ER 500 MG TAB.ER.24H PO SCH (19:41)
[2021-01-19] MEDS: AMITRIPTYLINE HCL 50 MG TABLET PO SCH (19:41)
[2021-01-19] MEDS: MELATONIN 3 MG TABLET PO SCH (19:41)
--- NOTE | 2021-01-19 21:08 | PDOC ---
Exam Note: Gus Note: Please also refer to the separate dictated note~for this date of service dictated separately.~Patient seen individually. Discussed the patient with Nursing staff reviewed the chart.~Reviewed interim history and current functioning. Reviewed vital signs,~Labs/ Radiology~and current medications noted below. Continue current treatment with the changes noted in the dictated addendum note Assessment: Vital Signs/I&O: Vital Signs Date Time Temp Pulse Resp B/P (MAP) Pulse Ox O2 Delivery O2 Flow Rate FiO2 01/19/21 17:09 75 157/85 01/19/21 15:24 97.4 18 98 Room Air I & O 01/18/21 01/18/21 01/19/21 14:59 22:59 06:59 Intake Total 1080 ml 480 ml Balance 1080 ml 480 ml Current Medications: Meds: Current Medications Medications (Trade) Dose Ordered Sig/Evaristo Route PRN Reason Start Time Stop Time Status Last Admin Dose Admin Risperidone (RisperDAL) 0.5 mg 0900,1300,1700 PO 01/19/21 09:00 01/19/21 17:09 I have reviewed the current psychotropics carefully including drug interactions. Risk benefit ratio favors no change other than as noted in my dictated progress note. Diagnosis: Problems: (1) Major neurocognitive disorder (2) Impulse control disorder, unspecified (3) Anxiety disorder, unspecified (4) Dementia, vascular, with depression (5) Dementia, vascular, with delusions (6) Dementia in Alzheimer's disease with depression (7) Dementia in Alzheimer's disease with delusions (8) Dementia of the Alzheimer's type with early onset with behavioral disturbance DONA BOTELLO MD Jan 19, 2021 21:08
[2021-01-19] MEDS: hydrOXYzine HCL 25 MG TABLET PO PRN (21:44)
[2021-01-19] MEDS: traZODone 100 MG TABLET. PO PRN ×2 (21:45→23:24)
--- NOTE | 2021-01-20 04:33 | NUR ---
Nursing Note The patient was disorganized, resistive and intrusive. The patient was compliant with his medication and took them whole. The patient was disorganized r/t location, date and situation but can answer name. The patient received Trazodone PRN x2 and Atarax x1 per PRN order.
[2021-01-20 06:00] VITALS: BP 162/92
[2021-01-20] MEDS: TAMSULOSIN 0.4 MG CAP.ER.24H. PO SCH (07:54)
[2021-01-20] MEDS: FOLIC ACID 1 MG TABLET PO SCH (07:54)
[2021-01-20] MEDS: THIAMINE 100 MG TABLET. PO SCH ×2 (07:54→19:48)
[2021-01-20] MEDS: ASPIRIN CHEWABLE 81 MG TABLET. PO SCH (07:54)
[2021-01-20] MEDS: SERTRALINE 50 MG TABLET. PO SCH (07:54)
[2021-01-20] MEDS: MULTIVITAMIN with MINERAL TABLET. PO SCH (07:55)
[2021-01-20] MEDS: risperiDONE 0.5 MG TABLET. PO SCH ×3 (07:55→16:55)
[2021-01-20] MEDS: amLODIPine BESYLATE 10 MG TABLET PO SCH (07:55)
[2021-01-20] MEDS: CARVEDILOL 6.25 MG TABLET PO SCH ×2 (07:55→16:55)
[2021-01-20] MEDS: LACTOBACILLUS RHAMNOSUS GG 1 CAPSULE. PO SCH ×2 (07:55→19:48)
[2021-01-20] MEDS: AMMONIUM LACTATE 12% TOPICAL LOTION 226GM BOTTLE. TP SCH ×2 (08:07→19:49)
[2021-01-20] MEDS: LIDOCAINE (700MG/PATCH) PATCH. TD SCH ×2 (08:07→09:00)
--- NOTE | 2021-01-20 10:50 | NUR ---
MARY received a call from pt son, Francisco, who wanted to see how pt was doing. MARY updated him on pt behaviors surrounding a female peer and how his agitation can at time result in pt getting physical. Pt son reports that pt has never been physical in his life; maybe verbal but being physical is not his thing. MARY explained that a lot of these behaviors can be contributed to the Dementia. If pt is not already happy about something and then staff have to intervene, this can create more upset for him, which means impulsivity, combativeness, etc. Pt son gave the following background information on pt: -- Pt father was an avid drinker and had a heart attack (COD) at the age of 28. Pt was very young and had very little discipline after this incident. -- Pt drank daily throughout his son's childhood. Pt initially was a couple a day; as he continued working and hanging out with pt at work, he increased his intake. Pt family is blaming of those he worked with as they "encouraged him to stay and drink 'another' to the point where "drinking became his first love". He always challenged people and accepted challenges despite how toxic it was to those around him. 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 It's all he knows how to do. Side note: MARY informed him that staff do attempt to 'put pt to work while here' as it does occupy him and keeps him busy. -- Pt has other children than the 4 from his "original" family, which was from his 1st . He does not have contact with those children. Then once pt was with Harjit (for over 20 years), he pretty much "dumped his biological kids" and cared for her kids. Pt son reports that those children have nothing to do with pt since the of Harjit. Pt son stated "when he our Mom, he us; but yet the courts want us to do things for him". --Pt son reports that he has never had a good relationship with his dtrs (Mikhail Hopson, Neris). Francisco reports that his relationship as a child with his Dad was always good. His Dad brought home presents specifically for him, spent a lot of 1:1 time with him, even rescued a dog and brought it home for Francisco. But never did he do anything like that for his girls. "My dad was one extreme or the other. He either gave everything or he gave nothing. His gifts to me were always 'grandiose' in nature". Pt son reports last seeing pt April 2020 and prior to that was 4 years ago. Pt son reports that he and his sisters have some medical issues and did not feel they were equipped to handle pt case due to past history. But they still would like updates on how he is doing. 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 Pt son thanked MARY for her time and will attempt to call pt later today.
--- NOTE | 2021-01-20 11:47 | NUR ---
Pt located in the room of a female patient whom he has been infatuated with. He was observed sitting on an empty bed while she was laying in her bed talking to him. The lights were off and the room remained very dim. This nurse attempted to instruct and encourage pt to leave the female's room because it is not his room and the behavior was not appropriate. Pt refused to leave despite multiple attempts at direction and encouragement and insisted that the female's room was also his room. 2 CNAs joined this nurse, and all 3 of us attempted to encourage and direct patient to leave the female's room. He specifically and bluntly stated he would not listen to nursing staff and would only listen to the female patient if she herself requested that he leave her room. Pt remained defiant and argumentative and repeated his insistence that he would listen to the female patient and not to nursing staff. At the encouragement and request of nursing staff, the female patient asked Scottie to leave her room so she could have privacy for morning hygiene and Scottie finally left her room. Nursing staff discussed the possibility of moving Scottie to the other end of the hallway so he is not right next to the female patient.
--- NOTE | 2021-01-20 11:55 | NUR ---
1300 dose of Rispirdone held d/t 0800 dose administered later in the morning.
--- NOTE | 2021-01-20 14:19 | NUR ---
Pt has been moved to the other end of the hallway so he is no longer rooming next to the room of a particular female patient who he has been fraternizing with and being intrusive towards.
[2021-01-20 15:39] VITALS: BP 127/78
--- NOTE | 2021-01-20 16:32 | NUR ---
Discussed pt's increasing episodes of intrusion with female patients and aggression when staff attempt to provide boundaries. Dr Ramirez advised this nurse to leave message with SW regarding behaviors and inquire as to if there are male-only facilities where he could possibly be admitted to. Message left with MARY Pierce concerning this.
[2021-01-20] MEDS: traZODone 50 MG TABLET. PO SCH (17:18)
[2021-01-20 19:39] LABS: BASO % 1 % (0-3); EOS # 0.1 x10^3/uL (0.0-0.7); EOS % 3 % (0-3); HEMATOCRIT 40.7 % (39.0-53.0); HEMOGLOBIN 13.5 g/dL (13.0-17.5); LYMPH # 1.4 x10^3/uL (1.0-4.8); LYMPH % 26 % (24-48); MEAN CORPUSCULAR HEMOGLOBIN 30 pg (25-35); MEAN CORPUSCULAR HGB CONC 33 g/dL (31-37); MEAN CORPUSCULAR VOLUME 91 fL (79-100); MONO # 0.6 x10^3/uL (0.0-1.1); MONO % 11 % (0-9); NEUT # 3.3 x10^3uL (1.8-7.7); NEUT % 60 % (31-73); PLATELET COUNT 269 x10^3/uL (140-400); RED BLOOD COUNT 4.49 x10^6/uL (4.30-5.70); RED CELL DISTRIBUTION WIDTH 14.2 % (11.5-14.5); WHITE BLOOD COUNT 5.5 x10^3/uL (4.0-11.0)
[2021-01-20 19:42] LABS: ALBUMIN 3.1 g/dL (3.4-5.0); ALBUMIN/GLOBULIN RATIO 0.8 (1.0-1.7); CALCIUM 8.6 mg/dL (8.5-10.1); GFR 71.5; POTASSIUM 3.8 mmol/L (3.5-5.1); TOTAL BILIRUBIN 0.4 mg/dL (0.2-1.0)
[2021-01-20] MEDS: MELATONIN 3 MG TABLET PO SCH (19:48)
[2021-01-20] MEDS: hydrOXYzine HCL 25 MG TABLET PO PRN (19:48)
[2021-01-20] MEDS: ATORVASTATIN CALCIUM 20 MG TABLET PO SCH (19:49)
[2021-01-20] MEDS: DIVALPROEX ER 500 MG TAB.ER.24H PO SCH (19:49)
[2021-01-20] MEDS: AMITRIPTYLINE HCL 50 MG TABLET PO SCH (19:49)
[2021-01-20] MEDS: traZODone 100 MG TABLET. PO SCH (19:49)
--- NOTE | 2021-01-20 20:49 | PDOC ---
Exam Note: Gus Note: Please also refer to the separate dictated note~for this date of service dictated separately.~Patient seen individually. Discussed the patient with Nursing staff reviewed the chart.~Reviewed interim history and current functioning. Reviewed vital signs,~Labs/ Radiology~and current medications noted below. Continue current treatment with the changes noted in the dictated addendum note Assessment: Vital Signs/I&O: Vital Signs Date Time Temp Pulse Resp B/P (MAP) Pulse Ox O2 Delivery O2 Flow Rate FiO2 01/20/21 16:55 82 127/78 01/20/21 15:39 97.3 18 96 Room Air I & O 01/19/21 01/19/21 01/20/21 15:00 23:00 07:00 Intake Total 700 ml 360 ml Balance 700 ml 360 ml Labs: Laboratory Tests Test 01/20/21 19:18 White Blood Count 5.5 x10^3/uL (4.0-11.0) Red Blood Count 4.49 x10^6/uL (4.30-5.70) Hemoglobin 13.5 g/dL (13.0-17.5) Hematocrit 40.7 % (39.0-53.0) Mean Corpuscular Volume 91 fL (79-100) Mean Corpuscular Hemoglobin 30 pg (25-35) Mean Corpuscular Hemoglobin Concent 33 g/dL (31-37) Red Cell Distribution Width 14.2 % (11.5-14.5) Platelet Count 269 x10^3/uL (140-400) Neutrophils (%) (Auto) 60 % (31-73) Lymphocytes (%) (Auto) 26 % (24-48) Monocytes (%) (Auto) 11 % (0-9) H Eosinophils (%) (Auto) 3 % (0-3) Basophils (%) (Auto) 1 % (0-3) Neutrophils # (Auto) 3.3 x10^3uL (1.8-7.7) Lymphocytes # (Auto) 1.4 x10^3/uL (1.0-4.8) Monocytes # (Auto) 0.6 x10^3/uL (0.0-1.1) Eosinophils # (Auto) 0.1 x10^3/uL (0.0-0.7) Basophils # (Auto) 0.0 x10^3/uL (0.0-0.2) Sodium Level 142 mmol/L (136-145) Potassium Level 3.8 mmol/L (3.5-5.1) Chloride Level 104 mmol/L (98-107) Carbon Dioxide Level 30 mmol/L (21-32) Anion Gap 8 (6-14) Blood Urea Nitrogen 20 mg/dL (8-26) Creatinine 1.0 mg/dL (0.7-1.3) Estimated GFR (Cockcroft-Gault) 71.5 BUN/Creatinine Ratio 20 (6-20) Glucose Level 105 mg/dL (70-99) H Calcium Level 8.6 mg/dL (8.5-10.1) Total Bilirubin 0.4 mg/dL (0.2-1.0) Aspartate Amino Transferase (AST) 17 U/L (15-37) Alanine Aminotransferase (ALT) 24 U/L (16-63) Alkaline Phosphatase 98 U/L (46-116) Total Protein 7.0 g/dL (6.4-8.2) Albumin 3.1 g/dL (3.4-5.0) L Albumin/Globulin Ratio 0.8 (1.0-1.7) L Current Medications: Meds: Current Medications Medications (Trade) Dose Ordered Sig/Evaristo Route PRN Reason Start Time Stop Time Status Last Admin Dose Admin Trazodone HCl (Desyrel) 12.5 mg 0900,1300,1700 PO 01/20/21 17:00 01/20/21 17:18 I have reviewed the current psychotropics carefully including drug interactions. Risk benefit ratio favors no change other than as noted in my dictated progress note. Diagnosis: Problems: (1) Major neurocognitive disorder (2) Impulse control disorder, unspecified (3) Anxiety disorder, unspecified (4) Dementia, vascular, with depression (5) Dementia, vascular, with delusions (6) Dementia in Alzheimer's disease with depression (7) Dementia in Alzheimer's disease with delusions (8) Dementia of the Alzheimer's type with early onset with behavioral disturbance DONA BOTELLO MD Jan 20, 2021 20:49
--- NOTE | 2021-01-20 21:41 | NUR ---
Pt wandering in the hallway at shift change. Pt calm, pleasantly confused, and interactive. Pt cooperative with assessment and compliant with medications administered whole. No agitation or aggression noted thus far this shift.
[2021-01-21 05:32] VITALS: BP 120/67
[2021-01-21] MEDS: traZODone 50 MG TABLET. PO SCH ×3 (08:55→17:19)
[2021-01-21] MEDS: LACTOBACILLUS RHAMNOSUS GG 1 CAPSULE. PO SCH ×2 (08:55→20:29)
[2021-01-21] MEDS: CARVEDILOL 6.25 MG TABLET PO SCH ×2 (08:55→16:52)
[2021-01-21] MEDS: ASPIRIN CHEWABLE 81 MG TABLET. PO SCH (08:55)
[2021-01-21] MEDS: amLODIPine BESYLATE 10 MG TABLET PO SCH (08:56)
[2021-01-21] MEDS: THIAMINE 100 MG TABLET. PO SCH ×2 (08:56→20:29)
[2021-01-21] MEDS: TAMSULOSIN 0.4 MG CAP.ER.24H. PO SCH (08:56)
[2021-01-21] MEDS: risperiDONE 0.5 MG TABLET. PO SCH ×3 (08:56→17:20)
[2021-01-21] MEDS: MULTIVITAMIN with MINERAL TABLET. PO SCH (08:56)
[2021-01-21] MEDS: FOLIC ACID 1 MG TABLET PO SCH (08:56)
[2021-01-21] MEDS: SERTRALINE 50 MG TABLET. PO SCH (08:56)
[2021-01-21] MEDS: LIDOCAINE (700MG/PATCH) PATCH. TD SCH (09:00)
[2021-01-21] MEDS: AMMONIUM LACTATE 12% TOPICAL LOTION 226GM BOTTLE. TP SCH ×2 (09:00→20:30)
--- NOTE | 2021-01-21 11:06 | NUR ---
Pt is calm, cooperative, confused, disorganized, and compliant. He wanders the unit. He is compliant with his medication and assessment. No agitation, no aggression.
--- NOTE | 2021-01-21 13:18 | NUR ---
During lunch pt became restless and disorganized. He was collecting cups and attempting to put them in the cooking maker. When staff attempted to redirected him he stated "I need to fill these up!" Staff attempted to redirect him with tasks from his previous jobs that he remembers doing such as taking out the trash however when he go to the soiled utility closet he stated "thats not where it goes!" Pt remained in [facility] for deescalation. He is currently wandering in the [facility].
[2021-01-21 16:21] VITALS: BP 99/56
--- NOTE | 2021-01-21 18:00 | NUR ---
Pt has not shown any hyperfixation toward other female peers this shift.
[2021-01-21] MEDS: ATORVASTATIN CALCIUM 20 MG TABLET PO SCH (20:28)
[2021-01-21] MEDS: DIVALPROEX ER 500 MG TAB.ER.24H PO SCH (20:28)
[2021-01-21] MEDS: AMITRIPTYLINE HCL 50 MG TABLET PO SCH (20:28)
[2021-01-21] MEDS: traZODone 100 MG TABLET. PO SCH (20:28)
[2021-01-21] MEDS: MELATONIN 3 MG TABLET PO SCH (20:28)
[2021-01-21] MEDS: hydrOXYzine HCL 25 MG TABLET PO PRN (20:29)
[2021-01-21] MEDS: MAG HYDROX/AL HYDROX/SIMETH 30 ML ORAL.SUSP PO PRN (21:18)
--- NOTE | 2021-01-21 21:57 | PDOC ---
Exam Note: Gus Note: Please also refer to the separate dictated note~for this date of service dictated separately.~Patient seen individually. Discussed the patient with Nursing staff reviewed the chart.~Reviewed interim history and current functioning. Reviewed vital signs,~Labs/ Radiology~and current medications noted below. Continue current treatment with the changes noted in the dictated addendum note Assessment: Vital Signs/I&O: Vital Signs Date Time Temp Pulse Resp B/P (MAP) Pulse Ox O2 Delivery O2 Flow Rate FiO2 01/21/21 16:21 97.4 82 18 99/56 (70) 95 Room Air I & O 01/20/21 01/20/21 01/21/21 15:00 23:00 07:00 Intake Total 240 ml 480 ml Balance 240 ml 480 ml Current Medications: Meds: Current Medications Medications (Trade) Dose Ordered Sig/Evaristo Route PRN Reason Start Time Stop Time Status Last Admin Dose Admin Acetaminophen (Tylenol) 650 mg PRN Q6HRS PRN PO MILD PAIN / TEMP > 100.3'F 11/25/20 18:00 01/14/21 12:42 Multi-Ingredient Ointment (Analgesic [place]) 1 addison PRN QID PRN TP MUSCLE PAIN 11/25/20 18:00 Al Hydroxide/Mg Hydroxide (Mylanta Plus Xs) 15 ml PRN AFTMEALHC PRN PO DYSPEPSIA 11/25/20 18:00 01/21/21 21:18 Magnesium Hydroxide (Milk Of Magnesia) 2,400 mg PRN QHS PRN PO CONSTIPATION 11/25/20 18:00 12/13/20 08:36 Amlodipine Besylate (Norvasc) 10 mg DAILY PO 11/26/20 09:00 01/21/21 08:56 Aspirin (Aspirin Chewable) 81 mg DAILY PO 11/26/20 09:00 01/21/21 08:55 Carvedilol (Coreg) 6.25 mg BIDWMEALS PO 11/25/20 18:30 01/21/21 08:55 Lisinopril (Prinivil) 10 mg DAILY PO 11/26/20 09:00 11/26/20 16:16 DC Quetiapine Fumarate (SEROquel) 25 mg QHS PO 11/25/20 21:00 12/23/20 17:23 DC 12/22/20 20:04 Tamsulosin HCl (Flomax) 0.4 mg DAILY PO 11/26/20 09:00 01/21/21 08:56 Amoxicillin (Amoxil) 500 mg [id number] PO 11/25/20 21:00 12/02/20 14:01 DC 12/02/20 14:15 Atorvastatin Calcium (Lipitor) 40 mg QHS PO 11/25/20 21:00 01/21/21 20:28 Folic Acid (Folic Acid) 1 mg DAILY PO 11/26/20 09:00 01/21/21 08:56 Lidocaine (Lidoderm) 1 patch DAILY TD 11/26/20 09:00 01/19/21 07:42 Multivitamins/ Calcium (Thera-M Plus) 1 tab DAILY PO 11/26/20 09:00 01/21/21 08:56 Thiamine HCl (Vitamin B-1) 100 mg BID PO 11/25/20 21:00 01/21/21 20:29 Olanzapine (ZyPREXA ZYDIS) 2.5 mg PRN Q2HR PRN PO PSYCHOSIS 11/25/20 21:15 01/21/21 17:20 Trazodone HCl (Desyrel) 50 mg PRN QHS PRN PO INSOMNIA, MAY REPEAT IN 1HR 11/25/20 21:15 01/03/21 16:48 DC 01/03/21 02:21 Mirtazapine (Remeron) 7.5 mg QHS PO 11/26/20 21:00 11/28/20 12:23 DC 11/27/20 20:00 Lactobacillus Rhamnosus (Culturelle) 1 cap BID PO 11/27/20 09:00 01/21/21 20:29 Sertraline HCl (Zoloft) 25 mg DAILY PO 11/28/20 09:00 11/30/20 09:01 DC 11/30/20 08:39 Sertraline HCl (Zoloft) 50 mg DAILY PO 12/01/20 09:00 12/03/20 11:00 DC 12/03/20 08:05 Mirtazapine (Remeron) 15 mg QHS PO 11/28/20 21:00 11/29/20 18:47 DC 11/28/20 19:38 Hydroxyzine HCl (Atarax) 25 mg PRN Q2HR PRN PO ABDOMINAL CRAMPS 11/28/20 21:45 01/21/21 20:29 Lorazepam (Ativan) 0.5 mg PRN Q4HRS PRN PO ANXIETY / AGITATION 11/28/20 21:45 11/29/20 21:45 DC Amitriptyline HCl (Elavil) 25 mg QHS PO 11/29/20 21:00 12/23/20 17:23 DC 12/22/20 20:04 Melatonin (Melatonin) 3 mg QHS PO 11/29/20 21:00 01/21/21 20:28 Sertraline HCl (Zoloft) 75 mg DAILY PO 12/04/20 09:00 01/14/21 18:05 DC 01/14/21 08:49 Divalproex Sodium (Depakote Er) 500 mg QHS PO 12/02/20 21:00 12/05/20 12:29 DC 12/04/20 20:08 Divalproex Sodium (Depakote Er) 1,000 mg QHS PO 12/05/20 21:00 01/21/21 20:28 Quetiapine Fumarate (SEROquel) 12.5 mg DAILY PO 12/17/20 09:00 12/18/20 16:46 DC 12/18/20 08:01 Quetiapine Fumarate (SEROquel) 12.5 mg [id number] PO 12/19/20 09:00 12/23/20 17:23 DC 12/23/20 13:28 Quetiapine Fumarate (SEROquel) 25 mg TID PO 12/23/20 17:30 01/08/21 16:44 DC 01/08/21 12:48 Amitriptyline HCl (Elavil) 50 mg QHS PO 12/23/20 21:00 01/21/21 20:28 Furosemide (Lasix) 80 mg 1X ONCE PO 12/30/20 16:30 12/30/20 16:31 DC 12/30/20 16:27 Trazodone HCl (Desyrel) 100 mg QHS PO 01/03/21 21:00 01/21/21 20:28 Trazodone HCl (Desyrel) 100 mg PRN QHS PRN PO INSOMNIA, 01/03/21 17:00 01/19/21 23:24 Lactic Acid (Lac-Hydrin) 1 addison BID TP 01/07/21 21:00 01/21/21 20:30 Quetiapine Fumarate (SEROquel) 37.5 mg TID PO 01/08/21 21:00 01/15/21 16:18 DC 01/15/21 14:31 Sertraline HCl (Zoloft) 100 mg DAILY PO 01/15/21 09:00 01/21/21 08:56 Risperidone (RisperDAL) 0.25 mg 0900,1300,1700 PO 01/16/21 09:00 01/17/21 18:15 DC 01/17/21 17:49 Risperidone (RisperDAL) 0.5 mg 1X PO 01/15/21 16:30 01/17/21 18:19 DC 01/15/21 16:25 Risperidone (RisperDAL) 0.25 mg 0900,1700 PO 01/18/21 09:00 01/18/21 18:47 DC 01/18/21 17:31 Risperidone (RisperDAL) 0.5 mg 1300 PO 01/18/21 13:00 01/18/21 18:47 DC 01/18/21 13:04 Risperidone (RisperDAL) 0.5 mg 0900,1300,1700 PO 01/19/21 09:00 01/21/21 17:20 Trazodone HCl (Desyrel) 12.5 mg 0900,1300,1700 PO 01/20/21 17:00 01/21/21 18:14 DC 01/21/21 17:19 Trazodone HCl (Desyrel) 12.5 mg 1300 PO 01/22/21 13:00 Trazodone HCl (Desyrel) 25 mg 0900,1700 PO 01/22/21 09:00 I have reviewed the current psychotropics carefully including drug interactions. Risk benefit ratio favors no change other than as noted in my dictated progress note. Diagnosis: Problems: (1) Major neurocognitive disorder (2) Impulse control disorder, unspecified (3) Anxiety disorder, unspecified (4) Dementia, vascular, with depression (5) Dementia, vascular, with delusions (6) Dementia in Alzheimer's disease with depression (7) Dementia in Alzheimer's disease with delusions (8) Dementia of the Alzheimer's type with early onset with behavioral disturbance DONA BOTELLO MD Jan 21, 2021 21:57
[2021-01-21] MEDS: traZODone 100 MG TABLET. PO PRN (22:12)
[2021-01-22 05:49] VITALS: BP 131/72
[2021-01-22] MEDS: ASPIRIN CHEWABLE 81 MG TABLET. PO SCH (08:45)
[2021-01-22] MEDS: FOLIC ACID 1 MG TABLET PO SCH (08:45)
[2021-01-22] MEDS: traZODone 50 MG TABLET. PO SCH ×3 (08:45→17:29)
[2021-01-22] MEDS: TAMSULOSIN 0.4 MG CAP.ER.24H. PO SCH (08:45)
[2021-01-22] MEDS: CARVEDILOL 6.25 MG TABLET PO SCH ×2 (08:45→17:29)
[2021-01-22] MEDS: LACTOBACILLUS RHAMNOSUS GG 1 CAPSULE. PO SCH ×2 (08:45→19:37)
[2021-01-22] MEDS: THIAMINE 100 MG TABLET. PO SCH ×2 (08:46→19:37)
[2021-01-22] MEDS: MULTIVITAMIN with MINERAL TABLET. PO SCH (08:46)
[2021-01-22] MEDS: risperiDONE 0.5 MG TABLET. PO SCH ×3 (08:46→17:29)
[2021-01-22] MEDS: SERTRALINE 50 MG TABLET. PO SCH (08:46)
[2021-01-22] MEDS: amLODIPine BESYLATE 10 MG TABLET PO SCH (08:46)
[2021-01-22] MEDS: AMMONIUM LACTATE 12% TOPICAL LOTION 226GM BOTTLE. TP SCH ×2 (09:00→19:38)
[2021-01-22] MEDS: LIDOCAINE (700MG/PATCH) PATCH. TD SCH (09:00)
--- NOTE | 2021-01-22 10:31 | NUR ---
Pt is calm, cooperative, confused, disorganized, and compliant. He wanders the unit and often door checks. He is compliant with his medication and assessment. No agitation, no aggression.
[2021-01-22 15:43] VITALS: BP 118/72
[2021-01-22] MEDS: hydrOXYzine HCL 25 MG TABLET PO PRN (15:47)
--- NOTE | 2021-01-22 15:51 | NUR ---
Pt is door checking, exit seeking, and asking staff if they have a screwdriver. Pt is unable to be redirected by staff. PRN zyprexa zydis and atarax given.
--- NOTE | 2021-01-22 17:48 | NUR ---
Pt has a history of delusions toward female peers, at times believing they are "Harjit" or his . None noted thus far this shift.
[2021-01-22] MEDS: DIVALPROEX ER 500 MG TAB.ER.24H PO SCH (19:37)
[2021-01-22] MEDS: MELATONIN 3 MG TABLET PO SCH (19:37)
[2021-01-22] MEDS: traZODone 100 MG TABLET. PO SCH (19:37)
[2021-01-22] MEDS: AMITRIPTYLINE HCL 50 MG TABLET PO SCH (19:37)
[2021-01-22] MEDS: ATORVASTATIN CALCIUM 20 MG TABLET PO SCH (19:37)
--- NOTE | 2021-01-22 21:01 | PDOC ---
Exam Note: Gus Note: This note is a late entry for 01/19/2021 covers elements not covered in my initial note. Subjective: The patient was seen face to face in the evening of 01/19/2021 with Radha OVIEDO, discussed and reviewed the chart. The patient slept 5-1/2 hours previous night. He has been confused, wandering. He does door check but redirects. He has not had any of that during the day on 01/19. Review of Systems: No CV, , pulmonary, eye, ENT system symptoms on review. Reliability poor. Mental Status Exam: The patient is oriented to himself. Insight and judgment, recent and remote memory, attention and concentration, fund of knowledge is poor consistent with his diagnosis. Laboratory Data: Reviewed. Impression: Major neurocognitive disorder Alzheimer vascular with delusion, depression, behavioral disturbance. Anxiety disorder unspecified. Impulse control disorder unspecified. Plan: Continue rest unchanged. Assessment: Vital Signs/I&O: Vital Signs Date Time Temp Pulse Resp B/P (MAP) Pulse Ox O2 Delivery O2 Flow Rate FiO2 01/22/21 17:29 74 118/72 01/22/21 15:43 98.0 20 98 Room Air I & O 01/21/21 01/21/21 01/22/21 15:00 23:00 07:00 Intake Total 720 ml 360 ml Balance 720 ml 360 ml Current Medications: Meds: Current Medications Medications (Trade) Dose Ordered Sig/Evaristo Route PRN Reason Start Time Stop Time Status Last Admin Dose Admin Acetaminophen (Tylenol) 650 mg PRN Q6HRS PRN PO MILD PAIN / TEMP > 100.3'F 11/25/20 18:00 01/14/21 12:42 Multi-Ingredient Ointment (Analgesic [place]) 1 addison PRN QID PRN TP MUSCLE PAIN 11/25/20 18:00 Al Hydroxide/Mg Hydroxide (Mylanta Plus Xs) 15 ml PRN AFTMEALHC PRN PO DYSPEPSIA 11/25/20 18:00 01/21/21 21:18 Magnesium Hydroxide (Milk Of Magnesia) 2,400 mg PRN QHS PRN PO CONSTIPATION 11/25/20 18:00 12/13/20 08:36 Amlodipine Besylate (Norvasc) 10 mg DAILY PO 11/26/20 09:00 01/22/21 08:46 Aspirin (Aspirin Chewable) 81 mg DAILY PO 11/26/20 09:00 01/22/21 08:45 Carvedilol (Coreg) 6.25 mg BIDWMEALS PO 11/25/20 18:30 01/22/21 17:29 Lisinopril (Prinivil) 10 mg DAILY PO 11/26/20 09:00 11/26/20 16:16 DC Quetiapine Fumarate (SEROquel) 25 mg QHS PO 11/25/20 21:00 12/23/20 17:23 DC 12/22/20 20:04 Tamsulosin HCl (Flomax) 0.4 mg DAILY PO 11/26/20 09:00 01/22/21 08:45 Amoxicillin (Amoxil) 500 mg [id number] PO 11/25/20 21:00 12/02/20 14:01 DC 12/02/20 14:15 Atorvastatin Calcium (Lipitor) 40 mg QHS PO 11/25/20 21:00 01/22/21 19:37 Folic Acid (Folic Acid) 1 mg DAILY PO 11/26/20 09:00 01/22/21 08:45 Lidocaine (Lidoderm) 1 patch DAILY TD 11/26/20 09:00 01/19/21 07:42 Multivitamins/ Calcium (Thera-M Plus) 1 tab DAILY PO 11/26/20 09:00 01/22/21 08:46 Thiamine HCl (Vitamin B-1) 100 mg BID PO 11/25/20 21:00 01/22/21 19:37 Olanzapine (ZyPREXA ZYDIS) 2.5 mg PRN Q2HR PRN PO PSYCHOSIS 11/25/20 21:15 01/22/21 15:47 Trazodone HCl (Desyrel) 50 mg PRN QHS PRN PO INSOMNIA, MAY REPEAT IN 1HR 11/25/20 21:15 01/03/21 16:48 DC 01/03/21 02:21 Mirtazapine (Remeron) 7.5 mg QHS PO 11/26/20 21:00 11/28/20 12:23 DC 11/27/20 20:00 Lactobacillus Rhamnosus (Culturelle) 1 cap BID PO 11/27/20 09:00 01/22/21 19:37 Sertraline HCl (Zoloft) 25 mg DAILY PO 11/28/20 09:00 11/30/20 09:01 DC 11/30/20 08:39 Sertraline HCl (Zoloft) 50 mg DAILY PO 12/01/20 09:00 12/03/20 11:00 DC 12/03/20 08:05 Mirtazapine (Remeron) 15 mg QHS PO 11/28/20 21:00 11/29/20 18:47 DC 11/28/20 19:38 Hydroxyzine HCl (Atarax) 25 mg PRN Q2HR PRN PO ABDOMINAL CRAMPS 11/28/20 21:45 01/22/21 15:47 Lorazepam (Ativan) 0.5 mg PRN Q4HRS PRN PO ANXIETY / AGITATION 11/28/20 21:45 11/29/20 21:45 DC Amitriptyline HCl (Elavil) 25 mg QHS PO 11/29/20 21:00 12/23/20 17:23 DC 12/22/20 20:04 Melatonin (Melatonin) 3 mg QHS PO 11/29/20 21:00 01/22/21 19:37 Sertraline HCl (Zoloft) 75 mg DAILY PO 12/04/20 09:00 01/14/21 18:05 DC 01/14/21 08:49 Divalproex Sodium (Depakote Er) 500 mg QHS PO 12/02/20 21:00 12/05/20 12:29 DC 12/04/20 20:08 Divalproex Sodium (Depakote Er) 1,000 mg QHS PO 12/05/20 21:00 01/22/21 19:37 Quetiapine Fumarate (SEROquel) 12.5 mg DAILY PO 12/17/20 09:00 12/18/20 16:46 DC 12/18/20 08:01 Quetiapine Fumarate (SEROquel) 12.5 mg [id number] PO 12/19/20 09:00 12/23/20 17:23 DC 12/23/20 13:28 Quetiapine Fumarate (SEROquel) 25 mg TID PO 12/23/20 17:30 01/08/21 16:44 DC 01/08/21 12:48 Amitriptyline HCl (Elavil) 50 mg QHS PO 12/23/20 21:00 01/22/21 19:37 Furosemide (Lasix) 80 mg 1X ONCE PO 12/30/20 16:30 12/30/20 16:31 DC 12/30/20 16:27 Trazodone HCl (Desyrel) 100 mg QHS PO 01/03/21 21:00 01/22/21 19:37 Trazodone HCl (Desyrel) 100 mg PRN QHS PRN PO INSOMNIA, 01/03/21 17:00 01/21/21 22:12 Lactic Acid (Lac-Hydrin) 1 addison BID TP 01/07/21 21:00 01/22/21 19:38 Quetiapine Fumarate (SEROquel) 37.5 mg TID PO 01/08/21 21:00 01/15/21 16:18 DC 01/15/21 14:31 Sertraline HCl (Zoloft) 100 mg DAILY PO 01/15/21 09:00 01/22/21 08:46 Risperidone (RisperDAL) 0.25 mg 0900,1300,1700 PO 01/16/21 09:00 01/17/21 18:15 DC 01/17/21 17:49 Risperidone (RisperDAL) 0.5 mg 1X PO 01/15/21 16:30 01/17/21 18:19 DC 01/15/21 16:25 Risperidone (RisperDAL) 0.25 mg 0900,1700 PO 01/18/21 09:00 01/18/21 18:47 DC 01/18/21 17:31 Risperidone (RisperDAL) 0.5 mg 1300 PO 01/18/21 13:00 01/18/21 18:47 DC 01/18/21 13:04 Risperidone (RisperDAL) 0.5 mg 0900,1300,1700 PO 01/19/21 09:00 01/22/21 17:29 Trazodone HCl (Desyrel) 12.5 mg 0900,1300,1700 PO 01/20/21 17:00 01/21/21 18:14 DC 01/21/21 17:19 Trazodone HCl (Desyrel) 12.5 mg 1300 PO 01/22/21 13:00 01/22/21 12:45 Trazodone HCl (Desyrel) 25 mg 0900,1700 PO 01/22/21 09:00 01/22/21 17:29 Current Medications Medications (Trade) Dose Ordered Sig/Evaristo Route PRN Reason Start Time Stop Time Status Last Admin Dose Admin Trazodone HCl (Desyrel) 12.5 mg 1300 PO 01/22/21 13:00 01/22/21 12:45 Trazodone HCl (Desyrel) 25 mg 0900,1700 PO 01/22/21 09:00 01/22/21 17:29 I have reviewed the current psychotropics carefully including drug interactions. Risk benefit ratio favors no change other than as noted in my dictated progress note. Diagnosis: Problems: (1) Major neurocognitive disorder (2) Impulse control disorder, unspecified (3) Anxiety disorder, unspecified (4) Dementia, vascular, with depression (5) Dementia, vascular, with delusions (6) Dementia in Alzheimer's disease with depression (7) Dementia in Alzheimer's disease with delusions (8) Dementia of the Alzheimer's type with early onset with behavioral disturbance DONA BOTELLO MD Jan 22, 2021 21:01
--- NOTE | 2021-01-22 21:07 | NUR ---
Pt wandering in the hallway at shift change. Pt calm, pleasantly confused, and interactive, continues to door check at times. Pt cooperative with assessment and compliant with medications administered whole. No agitation or aggression noted thus far this shift.
--- NOTE | 2021-01-22 21:22 | PDOC ---
Exam Note: Gus Note: This note is a late entry for 01/20/2021 covers elements not covered in my initial note. Subjective: The patient was seen face to face in the evening of 01/20/2021 with Neris OVIEDO, discussed and reviewed the chart. The patient slept 5 hours previous night. He is quite restless, wandering previous night, clinging to the doors, trying strike at nursing staff when they attempted to have him move out of another demented female patient. [facility] He may benefit from being in an all male facility. Review of Systems: No CV, , pulmonary, eye, ENT system symptoms on review. Mental Status Exam: The patient is oriented to himself. Insight and judgment, recent and remote memory, attention and concentration, fund of knowledge is poor consistent with his diagnosis. Laboratory Data: Reviewed. Impression: Major neurocognitive disorder Alzheimer vascular with delusion, depression, behavioral disturbance. Anxiety disorder unspecified. Impulse control disorder unspecified. Plan: Continue current psychotropics. Start trazodone 12.5 mg 9 a.m., 1 p.m. 5 p.m. for his anxiety and agitation. Rest unchanged for now. Assessment: Vital Signs/I&O: Vital Signs Date Time Temp Pulse Resp B/P (MAP) Pulse Ox O2 Delivery O2 Flow Rate FiO2 01/22/21 17:29 74 118/72 01/22/21 15:43 98.0 20 98 Room Air I & O 01/21/21 01/21/21 01/22/21 14:59 22:59 06:59 Intake Total 720 ml 360 ml Balance 720 ml 360 ml Current Medications: Meds: Current Medications Medications (Trade) Dose Ordered Sig/Evaristo Route PRN Reason Start Time Stop Time Status Last Admin Dose Admin Acetaminophen (Tylenol) 650 mg PRN Q6HRS PRN PO MILD PAIN / TEMP > 100.3'F 11/25/20 18:00 01/14/21 12:42 Multi-Ingredient Ointment (Analgesic [place]) 1 addison PRN QID PRN TP MUSCLE PAIN 11/25/20 18:00 Al Hydroxide/Mg Hydroxide (Mylanta Plus Xs) 15 ml PRN AFTMEALHC PRN PO DYSPEPSIA 11/25/20 18:00 01/21/21 21:18 Magnesium Hydroxide (Milk Of Magnesia) 2,400 mg PRN QHS PRN PO CONSTIPATION 11/25/20 18:00 12/13/20 08:36 Amlodipine Besylate (Norvasc) 10 mg DAILY PO 11/26/20 09:00 01/22/21 08:46 Aspirin (Aspirin Chewable) 81 mg DAILY PO 11/26/20 09:00 01/22/21 08:45 Carvedilol (Coreg) 6.25 mg BIDWMEALS PO 11/25/20 18:30 01/22/21 17:29 Lisinopril (Prinivil) 10 mg DAILY PO 11/26/20 09:00 11/26/20 16:16 DC Quetiapine Fumarate (SEROquel) 25 mg QHS PO 11/25/20 21:00 12/23/20 17:23 DC 12/22/20 20:04 Tamsulosin HCl (Flomax) 0.4 mg DAILY PO 11/26/20 09:00 01/22/21 08:45 Amoxicillin (Amoxil) 500 mg [id number] PO 11/25/20 21:00 12/02/20 14:01 DC 12/02/20 14:15 Atorvastatin Calcium (Lipitor) 40 mg QHS PO 11/25/20 21:00 01/22/21 19:37 Folic Acid (Folic Acid) 1 mg DAILY PO 11/26/20 09:00 01/22/21 08:45 Lidocaine (Lidoderm) 1 patch DAILY TD 11/26/20 09:00 01/19/21 07:42 Multivitamins/ Calcium (Thera-M Plus) 1 tab DAILY PO 11/26/20 09:00 01/22/21 08:46 Thiamine HCl (Vitamin B-1) 100 mg BID PO 11/25/20 21:00 01/22/21 19:37 Olanzapine (ZyPREXA ZYDIS) 2.5 mg PRN Q2HR PRN PO PSYCHOSIS 11/25/20 21:15 01/22/21 15:47 Trazodone HCl (Desyrel) 50 mg PRN QHS PRN PO INSOMNIA, MAY REPEAT IN 1HR 11/25/20 21:15 01/03/21 16:48 DC 01/03/21 02:21 Mirtazapine (Remeron) 7.5 mg QHS PO 11/26/20 21:00 11/28/20 12:23 DC 11/27/20 20:00 Lactobacillus Rhamnosus (Culturelle) 1 cap BID PO 11/27/20 09:00 01/22/21 19:37 Sertraline HCl (Zoloft) 25 mg DAILY PO 11/28/20 09:00 11/30/20 09:01 DC 11/30/20 08:39 Sertraline HCl (Zoloft) 50 mg DAILY PO 12/01/20 09:00 12/03/20 11:00 DC 12/03/20 08:05 Mirtazapine (Remeron) 15 mg QHS PO 11/28/20 21:00 11/29/20 18:47 DC 11/28/20 19:38 Hydroxyzine HCl (Atarax) 25 mg PRN Q2HR PRN PO ABDOMINAL CRAMPS 11/28/20 21:45 01/22/21 15:47 Lorazepam (Ativan) 0.5 mg PRN Q4HRS PRN PO ANXIETY / AGITATION 11/28/20 21:45 11/29/20 21:45 DC Amitriptyline HCl (Elavil) 25 mg QHS PO 11/29/20 21:00 12/23/20 17:23 DC 12/22/20 20:04 Melatonin (Melatonin) 3 mg QHS PO 11/29/20 21:00 01/22/21 19:37 Sertraline HCl (Zoloft) 75 mg DAILY PO 12/04/20 09:00 01/14/21 18:05 DC 01/14/21 08:49 Divalproex Sodium (Depakote Er) 500 mg QHS PO 12/02/20 21:00 12/05/20 12:29 DC 12/04/20 20:08 Divalproex Sodium (Depakote Er) 1,000 mg QHS PO 12/05/20 21:00 01/22/21 19:37 Quetiapine Fumarate (SEROquel) 12.5 mg DAILY PO 12/17/20 09:00 12/18/20 16:46 DC 12/18/20 08:01 Quetiapine Fumarate (SEROquel) 12.5 mg [id number] PO 12/19/20 09:00 12/23/20 17:23 DC 12/23/20 13:28 Quetiapine Fumarate (SEROquel) 25 mg TID PO 12/23/20 17:30 01/08/21 16:44 DC 01/08/21 12:48 Amitriptyline HCl (Elavil) 50 mg QHS PO 12/23/20 21:00 01/22/21 19:37 Furosemide (Lasix) 80 mg 1X ONCE PO 12/30/20 16:30 12/30/20 16:31 DC 12/30/20 16:27 Trazodone HCl (Desyrel) 100 mg QHS PO 01/03/21 21:00 01/22/21 19:37 Trazodone HCl (Desyrel) 100 mg PRN QHS PRN PO INSOMNIA, 01/03/21 17:00 01/21/21 22:12 Lactic Acid (Lac-Hydrin) 1 addison BID TP 01/07/21 21:00 01/22/21 19:38 Quetiapine Fumarate (SEROquel) 37.5 mg TID PO 01/08/21 21:00 01/15/21 16:18 DC 01/15/21 14:31 Sertraline HCl (Zoloft) 100 mg DAILY PO 01/15/21 09:00 01/22/21 08:46 Risperidone (RisperDAL) 0.25 mg 0900,1300,1700 PO 01/16/21 09:00 01/17/21 18:15 DC 01/17/21 17:49 Risperidone (RisperDAL) 0.5 mg 1X PO 01/15/21 16:30 01/17/21 18:19 DC 01/15/21 16:25 Risperidone (RisperDAL) 0.25 mg 0900,1700 PO 01/18/21 09:00 01/18/21 18:47 DC 01/18/21 17:31 Risperidone (RisperDAL) 0.5 mg 1300 PO 01/18/21 13:00 01/18/21 18:47 DC 01/18/21 13:04 Risperidone (RisperDAL) 0.5 mg 0900,1300,1700 PO 01/19/21 09:00 01/22/21 17:29 Trazodone HCl (Desyrel) 12.5 mg 0900,1300,1700 PO 01/20/21 17:00 01/21/21 18:14 DC 01/21/21 17:19 Trazodone HCl (Desyrel) 12.5 mg 1300 PO 01/22/21 13:00 01/22/21 12:45 Trazodone HCl (Desyrel) 25 mg 0900,1700 PO 01/22/21 09:00 01/22/21 17:29 Current Medications Medications (Trade) Dose Ordered Sig/Evaristo Route PRN Reason Start Time Stop Time Status Last Admin Dose Admin Trazodone HCl (Desyrel) 12.5 mg 1300 PO 01/22/21 13:00 01/22/21 12:45 Trazodone HCl (Desyrel) 25 mg 0900,1700 PO 01/22/21 09:00 01/22/21 17:29 I have reviewed the current psychotropics carefully including drug interactions. Risk benefit ratio favors no change other than as noted in my dictated progress note. Diagnosis: Problems: (1) Major neurocognitive disorder (2) Impulse control disorder, unspecified (3) Anxiety disorder, unspecified (4) Dementia, vascular, with depression (5) Dementia, vascular, with delusions (6) Dementia in Alzheimer's disease with depression (7) Dementia in Alzheimer's disease with delusions (8) Dementia of the Alzheimer's type with early onset with behavioral disturbance DONA BOTELLO MD Jan 22, 2021 21:22
--- NOTE | 2021-01-22 21:23 | PDOC ---
Exam Note: Gus Note: Please also refer to the separate dictated note~for this date of service dictated separately.~Patient seen individually. Discussed the patient with Nursing staff reviewed the chart.~Reviewed interim history and current functioning. Reviewed vital signs,~Labs/ Radiology~and current medications noted below. Continue current treatment with the changes noted in the dictated addendum note Assessment: Vital Signs/I&O: Vital Signs Date Time Temp Pulse Resp B/P (MAP) Pulse Ox O2 Delivery O2 Flow Rate FiO2 01/22/21 17:29 74 118/72 01/22/21 15:43 98.0 20 98 Room Air I & O 01/21/21 01/21/21 01/22/21 14:59 22:59 06:59 Intake Total 720 ml 360 ml Balance 720 ml 360 ml Current Medications: Meds: Current Medications Medications (Trade) Dose Ordered Sig/Evaristo Route PRN Reason Start Time Stop Time Status Last Admin Dose Admin Trazodone HCl (Desyrel) 12.5 mg 1300 PO 01/22/21 13:00 01/22/21 12:45 Trazodone HCl (Desyrel) 25 mg 0900,1700 PO 01/22/21 09:00 01/22/21 17:29 I have reviewed the current psychotropics carefully including drug interactions. Risk benefit ratio favors no change other than as noted in my dictated progress note. Diagnosis: Problems: (1) Major neurocognitive disorder (2) Impulse control disorder, unspecified (3) Anxiety disorder, unspecified (4) Dementia, vascular, with depression (5) Dementia, vascular, with delusions (6) Dementia in Alzheimer's disease with depression (7) Dementia in Alzheimer's disease with delusions (8) Dementia of the Alzheimer's type with early onset with behavioral disturbance DONA BOTELLO MD Jan 22, 2021 21:23
[2021-01-23 05:55] VITALS: BP 130/79
[2021-01-23] MEDS: ASPIRIN CHEWABLE 81 MG TABLET. PO SCH (08:18)
[2021-01-23] MEDS: LACTOBACILLUS RHAMNOSUS GG 1 CAPSULE. PO SCH ×2 (08:18→19:56)
[2021-01-23] MEDS: CARVEDILOL 6.25 MG TABLET PO SCH ×2 (08:18→16:54)
[2021-01-23] MEDS: TAMSULOSIN 0.4 MG CAP.ER.24H. PO SCH (08:19)
[2021-01-23] MEDS: traZODone 50 MG TABLET. PO SCH ×3 (08:19→16:54)
[2021-01-23] MEDS: FOLIC ACID 1 MG TABLET PO SCH (08:19)
[2021-01-23] MEDS: amLODIPine BESYLATE 10 MG TABLET PO SCH (08:20)
[2021-01-23] MEDS: AMMONIUM LACTATE 12% TOPICAL LOTION 226GM BOTTLE. TP SCH ×2 (08:20→20:01)
[2021-01-23] MEDS: SERTRALINE 50 MG TABLET. PO SCH (08:20)
[2021-01-23] MEDS: risperiDONE 0.5 MG TABLET. PO SCH ×3 (08:20→16:54)
[2021-01-23] MEDS: THIAMINE 100 MG TABLET. PO SCH ×2 (08:20→19:57)
[2021-01-23] MEDS: MULTIVITAMIN with MINERAL TABLET. PO SCH (08:20)
[2021-01-23] MEDS: LIDOCAINE (700MG/PATCH) PATCH. TD SCH (09:00)
--- NOTE | 2021-01-23 11:49 | NUR ---
WEEKLY ACTIVITY THERAPY NOTE Date of Admission: 11/25/2020 Date of AT Assessment: 11/28/2020 Precipitating behaviors that initiated intake and admission: Patient was reported to be confused, agitated, delusional, hallucinating, removing IVs, and not cooperating with cares at [facility]. Goal aimed: to increase engagement and socialization Initial Goal: Pt. will participate in at least one Activity Therapy group per day. Weekly progress towards goal: achieved 04/30 Group participation level: 3 mod, 3 full Weekly highlights: pleasant, danced Saturday during patio group, sociable Behaviors observed: pleasant,moved chairs around during group,prompting needed during cog stim, more controlled and appropriate in groups Plan: no change to goal Beneficial adaptations:
[2021-01-23 15:59] VITALS: BP 130/75
[2021-01-23] MEDS: hydrOXYzine HCL 25 MG TABLET PO PRN (16:54)
[2021-01-23] MEDS: MELATONIN 3 MG TABLET PO SCH (19:57)
[2021-01-23] MEDS: DIVALPROEX ER 500 MG TAB.ER.24H PO SCH (19:57)
[2021-01-23] MEDS: ATORVASTATIN CALCIUM 20 MG TABLET PO SCH (19:57)
[2021-01-23] MEDS: AMITRIPTYLINE HCL 50 MG TABLET PO SCH (19:57)
[2021-01-23] MEDS: traZODone 100 MG TABLET. PO SCH (19:58)
--- NOTE | 2021-01-23 20:51 | PDOC ---
Exam Note: Gus Note: This note is a late entry for 01/21/2021 covers elements not covered in my initial note. Subjective: The patient was seen face to face in the evening of 01/21/2021 with Hanane OVIEDO, discussed and reviewed the chart. The patient slept 6-3/4 hours previous night. He did well previous night. He has been somewhat irritable at times, resistive, delusional in the evening. Received Zyprexa p.r.n. and his evening dosage of medications given early. He got somewhat aggressive with staff in the evening but then redirected. Review of Systems: No CV, , pulmonary, eye, ENT system symptoms on review. Mental Status Exam: The patient is oriented to himself. Insight and judgment, recent and remote memory, attention and concentration, fund of knowledge is poor consistent with his diagnosis. Laboratory Data: Reviewed. Impression: Major neurocognitive disorder Alzheimer vascular with delusion, depression, behavioral disturbance. Anxiety disorder unspecified. Impulse control disorder unspecified. Plan: Continue current psychotropics. Assessment: Vital Signs/I&O: Vital Signs Date Time Temp Pulse Resp B/P (MAP) Pulse Ox O2 Delivery O2 Flow Rate FiO2 01/23/21 16:54 81 130/75 01/23/21 15:59 97.3 16 97 01/22/21 15:43 Room Air I & O 01/22/21 01/22/21 01/23/21 15:00 23:00 07:00 Intake Total 360 ml 840 ml Balance 360 ml 840 ml Current Medications: Meds: Current Medications Medications (Trade) Dose Ordered Sig/Evaristo Route PRN Reason Start Time Stop Time Status Last Admin Dose Admin Acetaminophen (Tylenol) 650 mg PRN Q6HRS PRN PO MILD PAIN / TEMP > 100.3'F 11/25/20 18:00 01/14/21 12:42 Multi-Ingredient Ointment (Analgesic [place]) 1 addison PRN QID PRN TP MUSCLE PAIN 11/25/20 18:00 Al Hydroxide/Mg Hydroxide (Mylanta Plus Xs) 15 ml PRN AFTMEALHC PRN PO DYSPEPSIA 11/25/20 18:00 01/21/21 21:18 Magnesium Hydroxide (Milk Of Magnesia) 2,400 mg PRN QHS PRN PO CONSTIPATION 11/25/20 18:00 12/13/20 08:36 Amlodipine Besylate (Norvasc) 10 mg DAILY PO 11/26/20 09:00 01/23/21 08:20 Aspirin (Aspirin Chewable) 81 mg DAILY PO 11/26/20 09:00 01/23/21 08:18 Carvedilol (Coreg) 6.25 mg BIDWMEALS PO 11/25/20 18:30 01/23/21 16:54 Lisinopril (Prinivil) 10 mg DAILY PO 11/26/20 09:00 11/26/20 16:16 DC Quetiapine Fumarate (SEROquel) 25 mg QHS PO 11/25/20 21:00 12/23/20 17:23 DC 12/22/20 20:04 Tamsulosin HCl (Flomax) 0.4 mg DAILY PO 11/26/20 09:00 01/23/21 08:19 Amoxicillin (Amoxil) 500 mg [id number] PO 11/25/20 21:00 12/02/20 14:01 DC 12/02/20 14:15 Atorvastatin Calcium (Lipitor) 40 mg QHS PO 11/25/20 21:00 01/23/21 19:57 Folic Acid (Folic Acid) 1 mg DAILY PO 11/26/20 09:00 01/23/21 08:19 Lidocaine (Lidoderm) 1 patch DAILY TD 11/26/20 09:00 01/19/21 07:42 Multivitamins/ Calcium (Thera-M Plus) 1 tab DAILY PO 11/26/20 09:00 01/23/21 08:20 Thiamine HCl (Vitamin B-1) 100 mg BID PO 11/25/20 21:00 01/23/21 19:57 Olanzapine (ZyPREXA ZYDIS) 2.5 mg PRN Q2HR PRN PO PSYCHOSIS 11/25/20 21:15 01/22/21 15:47 Trazodone HCl (Desyrel) 50 mg PRN QHS PRN PO INSOMNIA, MAY REPEAT IN 1HR 11/25/20 21:15 01/03/21 16:48 DC 01/03/21 02:21 Mirtazapine (Remeron) 7.5 mg QHS PO 11/26/20 21:00 11/28/20 12:23 DC 11/27/20 20:00 Lactobacillus Rhamnosus (Culturelle) 1 cap BID PO 11/27/20 09:00 01/23/21 19:56 Sertraline HCl (Zoloft) 25 mg DAILY PO 11/28/20 09:00 11/30/20 09:01 DC 11/30/20 08:39 Sertraline HCl (Zoloft) 50 mg DAILY PO 12/01/20 09:00 12/03/20 11:00 DC 12/03/20 08:05 Mirtazapine (Remeron) 15 mg QHS PO 11/28/20 21:00 11/29/20 18:47 DC 11/28/20 19:38 Hydroxyzine HCl (Atarax) 25 mg PRN Q2HR PRN PO ABDOMINAL CRAMPS 11/28/20 21:45 01/23/21 16:54 Lorazepam (Ativan) 0.5 mg PRN Q4HRS PRN PO ANXIETY / AGITATION 11/28/20 21:45 11/29/20 21:45 DC Amitriptyline HCl (Elavil) 25 mg QHS PO 11/29/20 21:00 12/23/20 17:23 DC 12/22/20 20:04 Melatonin (Melatonin) 3 mg QHS PO 11/29/20 21:00 01/23/21 19:57 Sertraline HCl (Zoloft) 75 mg DAILY PO 12/04/20 09:00 01/14/21 18:05 DC 01/14/21 08:49 Divalproex Sodium (Depakote Er) 500 mg QHS PO 12/02/20 21:00 12/05/20 12:29 DC 12/04/20 20:08 Divalproex Sodium (Depakote Er) 1,000 mg QHS PO 12/05/20 21:00 01/23/21 19:57 Quetiapine Fumarate (SEROquel) 12.5 mg DAILY PO 12/17/20 09:00 12/18/20 16:46 DC 12/18/20 08:01 Quetiapine Fumarate (SEROquel) 12.5 mg [id number] PO 12/19/20 09:00 12/23/20 17:23 DC 12/23/20 13:28 Quetiapine Fumarate (SEROquel) 25 mg TID PO 12/23/20 17:30 01/08/21 16:44 DC 01/08/21 12:48 Amitriptyline HCl (Elavil) 50 mg QHS PO 12/23/20 21:00 01/23/21 19:57 Furosemide (Lasix) 80 mg 1X ONCE PO 12/30/20 16:30 12/30/20 16:31 DC 12/30/20 16:27 Trazodone HCl (Desyrel) 100 mg QHS PO 01/03/21 21:00 01/23/21 19:58 Trazodone HCl (Desyrel) 100 mg PRN QHS PRN PO INSOMNIA, 01/03/21 17:00 01/21/21 22:12 Lactic Acid (Lac-Hydrin) 1 addison BID TP 01/07/21 21:00 01/23/21 20:01 Quetiapine Fumarate (SEROquel) 37.5 mg TID PO 01/08/21 21:00 01/15/21 16:18 DC 01/15/21 14:31 Sertraline HCl (Zoloft) 100 mg DAILY PO 01/15/21 09:00 01/23/21 08:20 Risperidone (RisperDAL) 0.25 mg 0900,1300,1700 PO 01/16/21 09:00 01/17/21 18:15 DC 01/17/21 17:49 Risperidone (RisperDAL) 0.5 mg 1X PO 01/15/21 16:30 01/17/21 18:19 DC 01/15/21 16:25 Risperidone (RisperDAL) 0.25 mg 0900,1700 PO 01/18/21 09:00 01/18/21 18:47 DC 01/18/21 17:31 Risperidone (RisperDAL) 0.5 mg 1300 PO 01/18/21 13:00 01/18/21 18:47 DC 01/18/21 13:04 Risperidone (RisperDAL) 0.5 mg 0900,1300,1700 PO 01/19/21 09:00 01/23/21 16:54 Trazodone HCl (Desyrel) 12.5 mg 0900,1300,1700 PO 01/20/21 17:00 01/21/21 18:14 DC 2/27/21 17:19 Trazodone HCl (Desyrel) 12.5 mg 1300 PO 01/22/21 13:00 01/23/21 12:45 Trazodone HCl (Desyrel) 25 mg 0900,1700 PO 01/22/21 09:00 01/23/21 16:54 I have reviewed the current psychotropics carefully including drug interactions. Risk benefit ratio favors no change other than as noted in my dictated progress note. Diagnosis: Problems: (1) Major neurocognitive disorder (2) Impulse control disorder, unspecified (3) Anxiety disorder, unspecified (4) Dementia, vascular, with depression (5) Dementia, vascular, with delusions (6) Dementia in Alzheimer's disease with depression (7) Dementia in Alzheimer's disease with delusions (8) Dementia of the Alzheimer's type with early onset with behavioral disturbance DONA BOTELLO MD Jan 23, 2021 20:51
--- NOTE | 2021-01-23 21:00 | NUR ---
Tonight pt has been confused, quiet and cooperative. He watched TV in the day room before going to bed. He took meds whole and has had no behaviors tonight.
--- NOTE | 2021-01-23 21:13 | PDOC ---
Exam Note: Gus Note: This note is a late entry for 01/22/2021 covers elements not covered in my initial note. Subjective: The patient was seen face to face in the evening of 01/22/2021 with Hanane OVIEDO, discussed and reviewed the chart. The patient slept 5-3/4 hours previous night. He has been somewhat exit seeking but not aggressive or disruptive. He wanders up and down the hallway. Review of Systems: No CV, , pulmonary, eye, ENT system symptoms on review. Mental Status Exam: The patient is oriented to himself. Insight and judgment, recent and remote memory, attention and concentration, fund of knowledge is poor consistent with his diagnosis. Laboratory Data: Reviewed. Impression: Major neurocognitive disorder Alzheimer vascular with delusion, depression, behavioral disturbance. Anxiety disorder unspecified. Impulse c ontrol disorder unspecified. Plan: Nursing staff discussed how the patient likes to fix things and if he could be given a busy board or an activity board to work on things this might as well distract him at the facility and avoid his attempts to elope, which is not shown today. Continue current psychotropics. Assessment: Vital Signs/I&O: Vital Signs Date Time Temp Pulse Resp B/P (MAP) Pulse Ox O2 Delivery O2 Flow Rate FiO2 01/23/21 16:54 81 130/75 01/23/21 15:59 97.3 16 97 01/22/21 15:43 Room Air I & O 01/22/21 01/22/21 01/23/21 15:00 23:00 07:00 Intake Total 360 ml 840 ml Balance 360 ml 840 ml Current Medications: Meds: Current Medications Medications (Trade) Dose Ordered Sig/Evaristo Route PRN Reason Start Time Stop Time Status Last Admin Dose Admin Acetaminophen (Tylenol) 650 mg PRN Q6HRS PRN PO MILD PAIN / TEMP > 100.3'F 11/25/20 18:00 01/14/21 12:42 Multi-Ingredient Ointment (Analgesic [place]) 1 addison PRN QID PRN TP MUSCLE PAIN 11/25/20 18:00 Al Hydroxide/Mg Hydroxide (Mylanta Plus Xs) 15 ml PRN AFTMEALHC PRN PO DYSPEPSIA 11/25/20 18:00 01/21/21 21:18 Magnesium Hydroxide (Milk Of Magnesia) 2,400 mg PRN QHS PRN PO CONSTIPATION 11/25/20 18:00 12/13/20 08:36 Amlodipine Besylate (Norvasc) 10 mg DAILY PO 11/26/20 09:00 01/23/21 08:20 Aspirin (Aspirin Chewable) 81 mg DAILY PO 11/26/20 09:00 01/23/21 08:18 Carvedilol (Coreg) 6.25 mg BIDWMEALS PO 11/25/20 18:30 01/23/21 16:54 Lisinopril (Prinivil) 10 mg DAILY PO 11/26/20 09:00 11/26/20 16:16 DC Quetiapine Fumarate (SEROquel) 25 mg QHS PO 11/25/20 21:00 12/23/20 17:23 DC 12/22/20 20:04 Tamsulosin HCl (Flomax) 0.4 mg DAILY PO 11/26/20 09:00 01/23/21 08:19 Amoxicillin (Amoxil) 500 mg [id number] PO 11/25/20 21:00 12/02/20 14:01 DC 12/02/20 14:15 Atorvastatin Calcium (Lipitor) 40 mg QHS PO 11/25/20 21:00 01/23/21 19:57 Folic Acid (Folic Acid) 1 mg DAILY PO 11/26/20 09:00 01/23/21 08:19 Lidocaine (Lidoderm) 1 patch DAILY TD 11/26/20 09:00 01/19/21 07:42 Multivitamins/ Calcium (Thera-M Plus) 1 tab DAILY PO 11/26/20 09:00 01/23/21 08:20 Thiamine HCl (Vitamin B-1) 100 mg BID PO 11/25/20 21:00 01/23/21 19:57 Olanzapine (ZyPREXA ZYDIS) 2.5 mg PRN Q2HR PRN PO PSYCHOSIS 11/25/20 21:15 01/22/21 15:47 Trazodone HCl (Desyrel) 50 mg PRN QHS PRN PO INSOMNIA, MAY REPEAT IN 1HR 11/25/20 21:15 01/03/21 16:48 DC 01/03/21 02:21 Mirtazapine (Remeron) 7.5 mg QHS PO 11/26/20 21:00 11/28/20 12:23 DC 11/27/20 20:00 Lactobacillus Rhamnosus (Culturelle) 1 cap BID PO 11/27/20 09:00 01/23/21 19:56 Sertraline HCl (Zoloft) 25 mg DAILY PO 11/28/20 09:00 11/30/20 09:01 DC 11/30/20 08:39 Sertraline HCl (Zoloft) 50 mg DAILY PO 12/01/20 09:00 12/03/20 11:00 DC 12/03/20 08:05 Mirtazapine (Remeron) 15 mg QHS PO 11/28/20 21:00 11/29/20 18:47 DC 11/28/20 19:38 Hydroxyzine HCl (Atarax) 25 mg PRN Q2HR PRN PO ABDOMINAL CRAMPS 11/28/20 21:45 01/23/21 16:54 Lorazepam (Ativan) 0.5 mg PRN Q4HRS PRN PO ANXIETY / AGITATION 11/28/20 21:45 11/29/20 21:45 DC Amitriptyline HCl (Elavil) 25 mg QHS PO 11/29/20 21:00 12/23/20 17:23 DC 12/22/20 20:04 Melatonin (Melatonin) 3 mg QHS PO 11/29/20 21:00 01/23/21 19:57 Sertraline HCl (Zoloft) 75 mg DAILY PO 12/04/20 09:00 01/14/21 18:05 DC 01/14/21 08:49 Divalproex Sodium (Depakote Er) 500 mg QHS PO 12/02/20 21:00 12/05/20 12:29 DC 12/04/20 20:08 Divalproex Sodium (Depakote Er) 1,000 mg QHS PO 12/05/20 21:00 01/23/21 19:57 Quetiapine Fumarate (SEROquel) 12.5 mg DAILY PO 12/17/20 09:00 12/18/20 16:46 DC 12/18/20 08:01 Quetiapine Fumarate (SEROquel) 12.5 mg [id number] PO 12/19/20 09:00 12/23/20 17:23 DC 12/23/20 13:28 Quetiapine Fumarate (SEROquel) 25 mg TID PO 12/23/20 17:30 01/08/21 16:44 DC 01/08/21 12:48 Amitriptyline HCl (Elavil) 50 mg QHS PO 12/23/20 21:00 01/23/21 19:57 Furosemide (Lasix) 80 mg 1X ONCE PO 12/30/20 16:30 12/30/20 16:31 DC 12/30/20 16:27 Trazodone HCl (Desyrel) 100 mg QHS PO 01/03/21 21:00 01/23/21 19:58 Trazodone HCl (Desyrel) 100 mg PRN QHS PRN PO INSOMNIA, 01/03/21 17:00 01/21/21 22:12 Lactic Acid (Lac-Hydrin) 1 addison BID TP 01/07/21 21:00 01/23/21 20:01 Quetiapine Fumarate (SEROquel) 37.5 mg TID PO 01/08/21 21:00 01/15/21 16:18 DC 01/15/21 14:31 Sertraline HCl (Zoloft) 100 mg DAILY PO 01/15/21 09:00 01/23/21 08:20 Risperidone (RisperDAL) 0.25 mg 0900,1300,1700 PO 01/16/21 09:00 01/17/21 18:15 DC 01/17/21 17:49 Risperidone (RisperDAL) 0.5 mg 1X PO 01/15/21 16:30 01/17/21 18:19 DC 01/15/21 16:25 Risperidone (RisperDAL) 0.25 mg 0900,1700 PO 01/18/21 09:00 01/18/21 18:47 DC 01/18/21 17:31 Risperidone (RisperDAL) 0.5 mg 1300 PO 01/18/21 13:00 01/18/21 18:47 DC 01/18/21 13:04 Risperidone (RisperDAL) 0.5 mg 0900,1300,1700 PO 01/19/21 09:00 01/23/21 16:54 Trazodone HCl (Desyrel) 12.5 mg 0900,1300,1700 PO 01/20/21 17:00 01/21/21 18:14 DC 01/21/21 17:19 Trazodone HCl (Desyrel) 12.5 mg 1300 PO 01/22/21 13:00 01/23/21 12:45 Trazodone HCl (Desyrel) 25 mg 0900,1700 PO 01/22/21 09:00 01/23/21 16:54 I have reviewed the current psychotropics carefully including drug interactions. Risk benefit ratio favors no change other than as noted in my dictated progress note. Diagnosis: Problems: (1) Major neurocognitive disorder (2) Impulse control disorder, unspecified (3) Anxiety disorder, unspecified (4) Dementia, vascular, with depression (5) Dementia, vascular, with delusions (6) Dementia in Alzheimer's disease with depression (7) Dementia in Alzheimer's disease with delusions (8) Dementia of the Alzheimer's type with early onset with behavioral disturbance DONA BOTELLO MD Jan 23, 2021 21:13
--- NOTE | 2021-01-23 21:48 | PDOC ---
Exam Note: Gus Note: Please also refer to the separate dictated note~for this date of service dictated separately.~Patient seen individually. Discussed the patient with Nursing staff reviewed the chart.~Reviewed interim history and current functioning. Reviewed vital signs,~Labs/ Radiology~and current medications noted below. Continue current treatment with the changes noted in the dictated addendum note Assessment: Vital Signs/I&O: Vital Signs Date Time Temp Pulse Resp B/P (MAP) Pulse Ox O2 Delivery O2 Flow Rate FiO2 01/23/21 16:54 81 130/75 01/23/21 15:59 97.3 16 97 01/22/21 15:43 Room Air I & O 01/22/21 01/22/21 01/23/21 15:00 23:00 07:00 Intake Total 360 ml 840 ml Balance 360 ml 840 ml Current Medications: Meds: Current Medications Medications (Trade) Dose Ordered Sig/Evaristo Route PRN Reason Start Time Stop Time Status Last Admin Dose Admin Acetaminophen (Tylenol) 650 mg PRN Q6HRS PRN PO MILD PAIN / TEMP > 100.3'F 11/25/20 18:00 01/14/21 12:42 Multi-Ingredient Ointment (Analgesic [place]) 1 addison PRN QID PRN TP MUSCLE PAIN 11/25/20 18:00 Al Hydroxide/Mg Hydroxide (Mylanta Plus Xs) 15 ml PRN AFTMEALHC PRN PO DYSPEPSIA 11/25/20 18:00 01/21/21 21:18 Magnesium Hydroxide (Milk Of Magnesia) 2,400 mg PRN QHS PRN PO CONSTIPATION 11/25/20 18:00 12/13/20 08:36 Amlodipine Besylate (Norvasc) 10 mg DAILY PO 11/26/20 09:00 01/23/21 08:20 Aspirin (Aspirin Chewable) 81 mg DAILY PO 11/26/20 09:00 01/23/21 08:18 Carvedilol (Coreg) 6.25 mg BIDWMEALS PO 11/25/20 18:30 01/23/21 16:54 Lisinopril (Prinivil) 10 mg DAILY PO 11/26/20 09:00 11/26/20 16:16 DC Quetiapine Fumarate (SEROquel) 25 mg QHS PO 11/25/20 21:00 12/23/20 17:23 DC 12/22/20 20:04 Tamsulosin HCl (Flomax) 0.4 mg DAILY PO 11/26/20 09:00 01/23/21 08:19 Amoxicillin (Amoxil) 500 mg [id number] PO 11/25/20 21:00 12/02/20 14:01 DC 12/02/20 14:15 Atorvastatin Calcium (Lipitor) 40 mg QHS PO 11/25/20 21:00 01/23/21 19:57 Folic Acid (Folic Acid) 1 mg DAILY PO 11/26/20 09:00 01/23/21 08:19 Lidocaine (Lidoderm) 1 patch DAILY TD 11/26/20 09:00 01/19/21 07:42 Multivitamins/ Calcium (Thera-M Plus) 1 tab DAILY PO 11/26/20 09:00 01/23/21 08:20 Thiamine HCl (Vitamin B-1) 100 mg BID PO 11/25/20 21:00 01/23/21 19:57 Olanzapine (ZyPREXA ZYDIS) 2.5 mg PRN Q2HR PRN PO PSYCHOSIS 11/25/20 21:15 01/22/21 15:47 Trazodone HCl (Desyrel) 50 mg PRN QHS PRN PO INSOMNIA, MAY REPEAT IN 1HR 11/25/20 21:15 01/03/21 16:48 DC 01/03/21 02:21 Mirtazapine (Remeron) 7.5 mg QHS PO 11/26/20 21:00 11/28/20 12:23 DC 11/27/20 20:00 Lactobacillus Rhamnosus (Culturelle) 1 cap BID PO 11/27/20 09:00 01/23/21 19:56 Sertraline HCl (Zoloft) 25 mg DAILY PO 11/28/20 09:00 11/30/20 09:01 DC 11/30/20 08:39 Sertraline HCl (Zoloft) 50 mg DAILY PO 12/01/20 09:00 12/03/20 11:00 DC 12/03/20 08:05 Mirtazapine (Remeron) 15 mg QHS PO 11/28/20 21:00 11/29/20 18:47 DC 11/28/20 19:38 Hydroxyzine HCl (Atarax) 25 mg PRN Q2HR PRN PO ABDOMINAL CRAMPS 11/28/20 21:45 01/23/21 16:54 Lorazepam (Ativan) 0.5 mg PRN Q4HRS PRN PO ANXIETY / AGITATION 11/28/20 21:45 11/29/20 21:45 DC Amitriptyline HCl (Elavil) 25 mg QHS PO 11/29/20 21:00 12/23/20 17:23 DC 12/22/20 20:04 Melatonin (Melatonin) 3 mg QHS PO 11/29/20 21:00 01/23/21 19:57 Sertraline HCl (Zoloft) 75 mg DAILY PO 12/04/20 09:00 01/14/21 18:05 DC 01/14/21 08:49 Divalproex Sodium (Depakote Er) 500 mg QHS PO 12/02/20 21:00 12/05/20 12:29 DC 12/04/20 20:08 Divalproex Sodium (Depakote Er) 1,000 mg QHS PO 12/05/20 21:00 01/23/21 19:57 Quetiapine Fumarate (SEROquel) 12.5 mg DAILY PO 12/17/20 09:00 12/18/20 16:46 DC 12/18/20 08:01 Quetiapine Fumarate (SEROquel) 12.5 mg [id number] PO 12/19/20 09:00 12/23/20 17:23 DC 12/23/20 13:28 Quetiapine Fumarate (SEROquel) 25 mg TID PO 12/23/20 17:30 01/08/21 16:44 DC 01/08/21 12:48 Amitriptyline HCl (Elavil) 50 mg QHS PO 12/23/20 21:00 01/23/21 19:57 Furosemide (Lasix) 80 mg 1X ONCE PO 12/30/20 16:30 12/30/20 16:31 DC 12/30/20 16:27 Trazodone HCl (Desyrel) 100 mg QHS PO 01/03/21 21:00 01/23/21 19:58 Trazodone HCl (Desyrel) 100 mg PRN QHS PRN PO INSOMNIA, 01/03/21 17:00 01/21/21 22:12 Lactic Acid (Lac-Hydrin) 1 addison BID TP 01/07/21 21:00 01/23/21 20:01 Quetiapine Fumarate (SEROquel) 37.5 mg TID PO 01/08/21 21:00 01/15/21 16:18 DC 01/15/21 14:31 Sertraline HCl (Zoloft) 100 mg DAILY PO 01/15/21 09:00 01/23/21 08:20 Risperidone (RisperDAL) 0.25 mg 0900,1300,1700 PO 01/16/21 09:00 01/17/21 18:15 DC 01/17/21 17:49 Risperidone (RisperDAL) 0.5 mg 1X PO 01/15/21 16:30 01/17/21 18:19 DC 01/15/21 16:25 Risperidone (RisperDAL) 0.25 mg 0900,1700 PO 01/18/21 09:00 01/18/21 18:47 DC 01/18/21 17:31 Risperidone (RisperDAL) 0.5 mg 1300 PO 01/18/21 13:00 01/18/21 18:47 DC 01/18/21 13:04 Risperidone (RisperDAL) 0.5 mg 0900,1300,1700 PO 01/19/21 09:00 01/23/21 16:54 Trazodone HCl (Desyrel) 12.5 mg 0900,1300,1700 PO 01/20/21 17:00 01/21/21 18:14 DC 01/21/21 17:19 Trazodone HCl (Desyrel) 12.5 mg 1300 PO 01/22/21 13:00 01/23/21 12:45 Trazodone HCl (Desyrel) 25 mg 0900,1700 PO 01/22/21 09:00 01/23/21 16:54 I have reviewed the current psychotropics carefully including drug interactions. Risk benefit ratio favors no change other than as noted in my dictated progress note. Diagnosis: Problems: (1) Major neurocognitive disorder (2) Impulse control disorder, unspecified (3) Anxiety disorder, unspecified (4) Dementia, vascular, with depression (5) Dementia, vascular, with delusions (6) Dementia in Alzheimer's disease with depression (7) Dementia in Alzheimer's disease with delusions (8) Dementia of the Alzheimer's type with early onset with behavioral disturbance DONA BOTELLO MD Jan 23, 2021 21:48
[2021-01-24 05:52] VITALS: BP 157/89
[2021-01-24] MEDS: LACTOBACILLUS RHAMNOSUS GG 1 CAPSULE. PO SCH ×2 (07:26→19:40)
[2021-01-24] MEDS: MULTIVITAMIN with MINERAL TABLET. PO SCH (07:26)
[2021-01-24] MEDS: FOLIC ACID 1 MG TABLET PO SCH (07:26)
[2021-01-24] MEDS: ASPIRIN CHEWABLE 81 MG TABLET. PO SCH (07:26)
[2021-01-24] MEDS: risperiDONE 0.5 MG TABLET. PO SCH ×3 (07:26→16:46)
[2021-01-24] MEDS: TAMSULOSIN 0.4 MG CAP.ER.24H. PO SCH (07:27)
[2021-01-24] MEDS: CARVEDILOL 6.25 MG TABLET PO SCH ×2 (07:27→16:45)
[2021-01-24] MEDS: SERTRALINE 50 MG TABLET. PO SCH (07:27)
[2021-01-24] MEDS: traZODone 50 MG TABLET. PO SCH ×3 (07:28→16:46)
[2021-01-24] MEDS: amLODIPine BESYLATE 10 MG TABLET PO SCH (07:28)
[2021-01-24] MEDS: THIAMINE 100 MG TABLET. PO SCH ×2 (07:32→19:40)
[2021-01-24] MEDS: AMMONIUM LACTATE 12% TOPICAL LOTION 226GM BOTTLE. TP SCH ×2 (09:00→19:44)
[2021-01-24] MEDS: LIDOCAINE (700MG/PATCH) PATCH. TD SCH (09:00)
--- NOTE | 2021-01-24 11:00 | NUR ---
Pt has been calm, cooperative, confused, and med complaint this morning. He has participated in group activities and has been appropriate with his interactions with staff/patients. He is absent of SI/HI behaviors, absent of distraction/distress from possible VH/AH. Will pass on to the next shift.
--- NOTE | 2021-01-24 13:55 | TX PLAN ---
Interdisciplinary Tx Plan Admission Information Nov 25, 2020 at 15:25 Legal Status (on Admission): Voluntary, Court Appointed Guardian, Court Appointed Conservat DPOA/Guardian Name: Maxwell Martinez- guardian Contact Verified Code Status: Full Code Allergies: Coded Allergies: No Known Drug Allergies (Unverified , 11/25/20) Estimated Length of Stay: 14 Diagnoses Primary Diagnosis: Major neurocognitive d/o, vascular, alzheimers with delusions, depresion, BD; Anxiety d/o unspecified; impulse control d/o Reasons for Admission: Aggressive, Delusions, Agitated, Alcohol Abuse, Sig. Change Sleep, Anxiety/Panic, Hallucinations, Combative, Confusion/Disoriented, Poor impulse control Problem in Patient's Words: Per Scottie, " Love and caring about her and my family." Per guardian, unsafe to live at home alone with level of confusion and memory impairment. Additional Admission Comments: Per intake record, hallucinating, delusional, aggressive during rosa m care, confused, restless, nonsensical speech, anxious, insomnia, poor safety, pulled out IV, uncooperative, agitated, and yelling out. Problems Active Problems: Confused Delsuional Hallucinating Wandering, intrusive, restless Poor sleep Inactive Problems: Adequate meal intake Compliant with meds Pt Strengths/Limitations Ability for [place]: Poor Cognitive Functioning/Ability: Poor Communication Skills/Ability: Fair Financial Resources: Fair Insight/Judgement: Poor Intellectual Ability: Fair Physical Health: Fair Social Skills: Fair Stability in Family: Poor Verbal Skills: Fair Discharge Criteria Discharge Criteria: Adequate arrangements @DC, Improved behavior, Improved mood/thought Preliminary Discharge Plan Preliminary DC Plan: Placement Needed Special Precautions Special Precautions: Agitation/Assault Fall Risk: High Initial D/C Plan Scottie will need placement. [facility] is in the process of determining if a medicaid applincation will need to be filed to pay for longterm care. Identified Discharge Needs: Scottie will need placement due to memory impairment. Currently Utilized Resources Currently Utilized Resources/P: PCP Referrals Community Resources: Placement referral PCP Psychiatry if available Identified Problems/Hx/Goals Objectives/Short-Term Goals Short Term Goals: Control abnormal behavior, Dec. Aggression, Dec. Anxiety/Panic, Dec. Hallucination/Delus, Dec. Outbursts, Medication Stabilization, Monitor Med Effects Short Term Goals in Patient's: Melvin Rubin, "I hope to conquer even better and us get along." Interventions/Frequency Staff Interventions/Frequency&: Nursing to provide routine safety checks, medication administration, and adl support. Psychiatry thre times weekly. SW visits twice weekly. Recreational and SW groups as Scottie will participate. 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 Social: Scottie enjoys basketball, swimming, and country music. Education: Scottie reported graduating high school. Community Follow-up PCP Psychiatry if available Placement referral Community Provider/Family Inpu: Treatment team meeting was held on 11/28/20. entry level chemist of treatment plan was enterred on 11/29/20. Maxwell, guardian, declined to be involed in team meetings but does want to know any recommendations concerning Scottie. Treatment Plan Explained Patient/Photographer Model had this treatment plan explained to him/her as indicated by the signature below and has been given the opportunity to ask questions and make suggestions: Date: Patient/Photographer Model Signature: Status Update Update Pt is eating between 75-100% of meals and sleeping on average 7 hours per night. Pt appears to be less aggressive with staff during times of redirection and continues to do some exit seeking but not as much as the weeks prior. Pt is medication compliant and does continue to wander the unit quite a bit. Pt is attending groups with moderate participation, exceeding his goals of 1 group per day; pt has been dancing in some groups and is more controlled with his behaviors. Pt still needs placement and is recommended to be on an all male unit to continue the decrease in behaviors surrounding female peers. SW to continue to look for placement and work with pt court appointed guardian. BA MUÑIZ Jan 24, 2021 13:55
[2021-01-24 15:53] VITALS: BP 143/88
[2021-01-24] MEDS: traZODone 100 MG TABLET. PO SCH (19:39)
[2021-01-24] MEDS: MELATONIN 3 MG TABLET PO SCH (19:39)
[2021-01-24] MEDS: DIVALPROEX ER 500 MG TAB.ER.24H PO SCH (19:40)
[2021-01-24] MEDS: ATORVASTATIN CALCIUM 20 MG TABLET PO SCH (19:40)
[2021-01-24] MEDS: AMITRIPTYLINE HCL 50 MG TABLET PO SCH (19:40)
--- NOTE | 2021-01-24 20:53 | PDOC ---
Exam Note: Gus Note: Please also refer to the separate dictated note~for this date of service dictated separately.~Patient seen individually. Discussed the patient with Nursing staff reviewed the chart.~Reviewed interim history and current functioning. Reviewed vital signs,~Labs/ Radiology~and current medications noted below. Continue current treatment with the changes noted in the dictated addendum note Assessment: Vital Signs/I&O: Vital Signs Date Time Temp Pulse Resp B/P (MAP) Pulse Ox O2 Delivery O2 Flow Rate FiO2 01/24/21 16:45 80 143/88 01/24/21 15:53 97.2 18 97 01/22/21 15:43 Room Air I & O 01/23/21 01/23/21 01/24/21 15:00 23:00 07:00 Intake Total 960 ml 460 ml Balance 960 ml 460 ml Current Medications: Meds: Current Medications Medications (Trade) Dose Ordered Sig/Evaristo Route PRN Reason Start Time Stop Time Status Last Admin Dose Admin Acetaminophen (Tylenol) 650 mg PRN Q6HRS PRN PO MILD PAIN / TEMP > 100.3'F 11/25/20 18:00 01/14/21 12:42 Multi-Ingredient Ointment (Analgesic [place]) 1 addison PRN QID PRN TP MUSCLE PAIN 11/25/20 18:00 Al Hydroxide/Mg Hydroxide (Mylanta Plus Xs) 15 ml PRN AFTMEALHC PRN PO DYSPEPSIA 11/25/20 18:00 01/21/21 21:18 Magnesium Hydroxide (Milk Of Magnesia) 2,400 mg PRN QHS PRN PO CONSTIPATION 11/25/20 18:00 12/13/20 08:36 Amlodipine Besylate (Norvasc) 10 mg DAILY PO 11/26/20 09:00 01/24/21 07:28 Aspirin (Aspirin Chewable) 81 mg DAILY PO 11/26/20 09:00 01/24/21 07:26 Carvedilol (Coreg) 6.25 mg BIDWMEALS PO 11/25/20 18:30 01/24/21 16:45 Lisinopril (Prinivil) 10 mg DAILY PO 11/26/20 09:00 11/26/20 16:16 DC Quetiapine Fumarate (SEROquel) 25 mg QHS PO 11/25/20 21:00 12/23/20 17:23 DC 12/22/20 20:04 Tamsulosin HCl (Flomax) 0.4 mg DAILY PO 11/26/20 09:00 01/24/21 07:27 Amoxicillin (Amoxil) 500 mg [id number] PO 11/25/20 21:00 12/02/20 14:01 DC 12/02/20 14:15 Atorvastatin Calcium (Lipitor) 40 mg QHS PO 11/25/20 21:00 01/24/21 19:40 Folic Acid (Folic Acid) 1 mg DAILY PO 11/26/20 09:00 01/24/21 07:26 Lidocaine (Lidoderm) 1 patch DAILY TD 11/26/20 09:00 01/19/21 07:42 Multivitamins/ Calcium (Thera-M Plus) 1 tab DAILY PO 11/26/20 09:00 01/24/21 07:26 Thiamine HCl (Vitamin B-1) 100 mg BID PO 11/25/20 21:00 01/24/21 19:40 Olanzapine (ZyPREXA ZYDIS) 2.5 mg PRN Q2HR PRN PO PSYCHOSIS 11/25/20 21:15 01/22/21 15:47 Trazodone HCl (Desyrel) 50 mg PRN QHS PRN PO INSOMNIA, MAY REPEAT IN 1HR 11/25/20 21:15 01/03/21 16:48 DC 01/03/21 02:21 Mirtazapine (Remeron) 7.5 mg QHS PO 11/26/20 21:00 11/28/20 12:23 DC 11/27/20 20:00 Lactobacillus Rhamnosus (Culturelle) 1 cap BID PO 11/27/20 09:00 01/24/21 19:40 Sertraline HCl (Zoloft) 25 mg DAILY PO 11/28/20 09:00 11/30/20 09:01 DC 11/30/20 08:39 Sertraline HCl (Zoloft) 50 mg DAILY PO 12/01/20 09:00 12/03/20 11:00 DC 12/03/20 08:05 Mirtazapine (Remeron) 15 mg QHS PO 11/28/20 21:00 11/29/20 18:47 DC 11/28/20 19:38 Hydroxyzine HCl (Atarax) 25 mg PRN Q2HR PRN PO ABDOMINAL CRAMPS 11/28/20 21:45 01/23/21 16:54 Lorazepam (Ativan) 0.5 mg PRN Q4HRS PRN PO ANXIETY / AGITATION 11/28/20 21:45 11/29/20 21:45 DC Amitriptyline HCl (Elavil) 25 mg QHS PO 11/29/20 21:00 12/23/20 17:23 DC 12/22/20 20:04 Melatonin (Melatonin) 3 mg QHS PO 11/29/20 21:00 01/24/21 19:39 Sertraline HCl (Zoloft) 75 mg DAILY PO 12/04/20 09:00 01/14/21 18:05 DC 01/14/21 08:49 Divalproex Sodium (Depakote Er) 500 mg QHS PO 12/02/20 21:00 12/05/20 12:29 DC 12/04/20 20:08 Divalproex Sodium (Depakote Er) 1,000 mg QHS PO 12/05/20 21:00 01/24/21 19:40 Quetiapine Fumarate (SEROquel) 12.5 mg DAILY PO 12/17/20 09:00 12/18/20 16:46 DC 12/18/20 08:01 Quetiapine Fumarate (SEROquel) 12.5 mg [id number] PO 12/19/20 09:00 12/23/20 17:23 DC 12/23/20 13:28 Quetiapine Fumarate (SEROquel) 25 mg TID PO 12/23/20 17:30 01/08/21 16:44 DC 01/08/21 12:48 Amitriptyline HCl (Elavil) 50 mg QHS PO 12/23/20 21:00 01/24/21 19:40 Furosemide (Lasix) 80 mg 1X ONCE PO 12/30/20 16:30 12/30/20 16:31 DC 12/30/20 16:27 Trazodone HCl (Desyrel) 100 mg QHS PO 01/03/21 21:00 01/24/21 19:39 Trazodone HCl (Desyrel) 100 mg PRN QHS PRN PO INSOMNIA, 01/03/21 17:00 01/21/21 22:12 Lactic Acid (Lac-Hydrin) 1 addison BID TP 01/07/21 21:00 01/24/21 19:44 Quetiapine Fumarate (SEROquel) 37.5 mg TID PO 01/08/21 21:00 01/15/21 16:18 DC 01/15/21 14:31 Sertraline HCl (Zoloft) 100 mg DAILY PO 01/15/21 09:00 01/24/21 07:27 Risperidone (RisperDAL) 0.25 mg 0900,1300,1700 PO 01/16/21 09:00 01/17/21 18:15 DC 01/17/21 17:49 Risperidone (RisperDAL) 0.5 mg 1X PO 01/15/21 16:30 01/17/21 18:19 DC 01/15/21 16:25 Risperidone (RisperDAL) 0.25 mg 0900,1700 PO 01/18/21 09:00 01/18/21 18:47 DC 01/18/21 17:31 Risperidone (RisperDAL) 0.5 mg 1300 PO 01/18/21 13:00 01/18/21 18:47 DC 01/18/21 13:04 Risperidone (RisperDAL) 0.5 mg 0900,1300,1700 PO 01/19/21 09:00 01/24/21 16:46 Trazodone HCl (Desyrel) 12.5 mg 0900,1300,1700 PO 01/20/21 17:00 01/21/21 18:14 DC 01/21/21 17:19 Trazodone HCl (Desyrel) 12.5 mg 1300 PO 01/22/21 13:00 01/24/21 13:48 Trazodone HCl (Desyrel) 25 mg 0900,1700 PO 01/22/21 09:00 01/24/21 16:46 I have reviewed the current psychotropics carefully including drug interactions. Risk benefit ratio favors no change other than as noted in my dictated progress note. Diagnosis: Problems: (1) Major neurocognitive disorder (2) Impulse control disorder, unspecified (3) Anxiety disorder, unspecified (4) Dementia, vascular, with depression (5) Dementia, vascular, with delusions (6) Dementia in Alzheimer's disease with depression (7) Dementia in Alzheimer's disease with delusions (8) Dementia of the Alzheimer's type with early onset with behavioral disturbance DONA BOTELLO MD Jan 24, 2021 20:53
--- NOTE | 2021-01-25 03:21 | NUR ---
Karly morales was active on unit, he remains confused and was trying to get a truck unloaded. He took meds whole then went to bed with no behaviors.
[2021-01-25 06:00] VITALS: BP 143/79
[2021-01-25] MEDS: THIAMINE 100 MG TABLET. PO SCH ×2 (07:32→20:04)
[2021-01-25] MEDS: traZODone 50 MG TABLET. PO SCH ×3 (07:32→16:40)
[2021-01-25] MEDS: MULTIVITAMIN with MINERAL TABLET. PO SCH (07:32)
[2021-01-25] MEDS: LIDOCAINE (700MG/PATCH) PATCH. TD SCH (07:32)
[2021-01-25] MEDS: ASPIRIN CHEWABLE 81 MG TABLET. PO SCH (07:32)
[2021-01-25] MEDS: CARVEDILOL 6.25 MG TABLET PO SCH ×2 (07:33→16:39)
[2021-01-25] MEDS: LACTOBACILLUS RHAMNOSUS GG 1 CAPSULE. PO SCH ×2 (07:33→20:04)
[2021-01-25] MEDS: amLODIPine BESYLATE 10 MG TABLET PO SCH (07:33)
[2021-01-25] MEDS: TAMSULOSIN 0.4 MG CAP.ER.24H. PO SCH (07:33)
[2021-01-25] MEDS: FOLIC ACID 1 MG TABLET PO SCH (07:34)
[2021-01-25] MEDS: SERTRALINE 50 MG TABLET. PO SCH (07:34)
[2021-01-25] MEDS: risperiDONE 0.5 MG TABLET. PO SCH ×3 (07:36→16:39)
[2021-01-25] MEDS: AMMONIUM LACTATE 12% TOPICAL LOTION 226GM BOTTLE. TP SCH ×2 (08:53→20:05)
--- NOTE | 2021-01-25 09:40 | PDOC ---
Exam Note: Gus Note: This note is a late entry for 01/23/2021 covers elements not covered in my initial note. Subjective: The patient was seen face to face in the evening of 01/23/2021 with Hanane OVIEDO, discussed and reviewed the chart. The patient slept 7-1/2 hours previous night. He has been more redirectable. He is still confused, at times wanders into others rooms, oblivious of what he is doing. Review of Systems: No CV, , pulmonary, eye, ENT system symptoms on review. Mental Status Exam: The patient is oriented to himself. Insight and judgment, recent and remote memory, attention and concentration, fund of knowledge is poor consistent with his diagnosis. Laboratory Data: Reviewed. Impression: Major neurocognitive disorder Alzheimer vascular with delusion, depression, behavioral disturbance. Anxiety disorder unspecified. Impulse control disorder unspecified. Plan: No change from initial note. Assessment: Vital Signs/I&O: Vital Signs Date Time Temp Pulse Resp B/P (MAP) Pulse Ox O2 Delivery O2 Flow Rate FiO2 01/25/21 07:33 68 143/79 01/25/21 06:00 97.4 18 98 01/22/21 15:43 Room Air I & O 01/24/21 01/24/21 01/25/21 15:00 23:00 07:00 Intake Total 420 ml 480 ml Balance 420 ml 480 ml Current Medications: Meds: Current Medications Medications (Trade) Dose Ordered Sig/Evaristo Route PRN Reason Start Time Stop Time Status Last Admin Dose Admin Acetaminophen (Tylenol) 650 mg PRN Q6HRS PRN PO MILD PAIN / TEMP > 100.3'F 11/25/20 18:00 01/14/21 12:42 Multi-Ingredient Ointment (Analgesic [place]) 1 addison PRN QID PRN TP MUSCLE PAIN 11/25/20 18:00 Al Hydroxide/Mg Hydroxide (Mylanta Plus Xs) 15 ml PRN AFTMEALHC PRN PO DYSPEPSIA 11/25/20 18:00 01/21/21 21:18 Magnesium Hydroxide (Milk Of Magnesia) 2,400 mg PRN QHS PRN PO CONSTIPATION 11/25/20 18:00 12/13/20 08:36 Amlodipine Besylate (Norvasc) 10 mg DAILY PO 11/26/20 09:00 01/25/21 07:33 Aspirin (Aspirin Chewable) 81 mg DAILY PO 11/26/20 09:00 01/25/21 07:32 Carvedilol (Coreg) 6.25 mg BIDWMEALS PO 11/25/20 18:30 01/25/21 07:33 Lisinopril (Prinivil) 10 mg DAILY PO 11/26/20 09:00 11/26/20 16:16 DC Quetiapine Fumarate (SEROquel) 25 mg QHS PO 11/25/20 21:00 12/23/20 17:23 DC 12/22/20 20:04 Tamsulosin HCl (Flomax) 0.4 mg DAILY PO 11/26/20 09:00 01/25/21 07:33 Amoxicillin (Amoxil) 500 mg [id number] PO 11/25/20 21:00 12/02/20 14:01 DC 12/02/20 14:15 Atorvastatin Calcium (Lipitor) 40 mg QHS PO 11/25/20 21:00 01/24/21 19:40 Folic Acid (Folic Acid) 1 mg DAILY PO 11/26/20 09:00 01/25/21 07:34 Lidocaine (Lidoderm) 1 patch DAILY TD 11/26/20 09:00 01/25/21 07:32 Multivitamins/ Calcium (Thera-M Plus) 1 tab DAILY PO 11/26/20 09:00 01/25/21 07:32 Thiamine HCl (Vitamin B-1) 100 mg BID PO 11/25/20 21:00 01/25/21 07:32 Olanzapine (ZyPREXA ZYDIS) 2.5 mg PRN Q2HR PRN PO PSYCHOSIS 11/25/20 21:15 01/22/21 15:47 Trazodone HCl (Desyrel) 50 mg PRN QHS PRN PO INSOMNIA, MAY REPEAT IN 1HR 11/25/20 21:15 01/03/21 16:48 DC 01/03/21 02:21 Mirtazapine (Remeron) 7.5 mg QHS PO 11/26/20 21:00 11/28/20 12:23 DC 11/27/20 20:00 Lactobacillus Rhamnosus (Culturelle) 1 cap BID PO 11/27/20 09:00 01/25/21 07:33 Sertraline HCl (Zoloft) 25 mg DAILY PO 11/28/20 09:00 11/30/20 09:01 DC 11/30/20 08:39 Sertraline HCl (Zoloft) 50 mg DAILY PO 12/01/20 09:00 12/03/20 11:00 DC 12/03/20 08:05 Mirtazapine (Remeron) 15 mg QHS PO 11/28/20 21:00 11/29/20 18:47 DC 11/28/20 19:38 Hydroxyzine HCl (Atarax) 25 mg PRN Q2HR PRN PO ABDOMINAL CRAMPS 11/28/20 21:45 01/23/21 16:54 Lorazepam (Ativan) 0.5 mg PRN Q4HRS PRN PO ANXIETY / AGITATION 11/28/20 21:45 11/29/20 21:45 DC Amitriptyline HCl (Elavil) 25 mg QHS PO 11/29/20 21:00 12/23/20 17:23 DC 12/22/20 20:04 Melatonin (Melatonin) 3 mg QHS PO 11/29/20 21:00 01/24/21 19:39 Sertraline HCl (Zoloft) 75 mg DAILY PO 12/04/20 09:00 01/14/21 18:05 DC 01/14/21 08:49 Divalproex Sodium (Depakote Er) 500 mg QHS PO 12/02/20 21:00 12/05/20 12:29 DC 12/04/20 20:08 Divalproex Sodium (Depakote Er) 1,000 mg QHS PO 12/05/20 21:00 01/24/21 19:40 Quetiapine Fumarate (SEROquel) 12.5 mg DAILY PO 12/17/20 09:00 12/18/20 16:46 DC 12/18/20 08:01 Quetiapine Fumarate (SEROquel) 12.5 mg [id number] PO 12/19/20 09:00 12/23/20 17:23 DC 12/23/20 13:28 Quetiapine Fumarate (SEROquel) 25 mg TID PO 12/23/20 17:30 01/08/21 16:44 DC 01/08/21 12:48 Amitriptyline HCl (Elavil) 50 mg QHS PO 12/23/20 21:00 01/24/21 19:40 Furosemide (Lasix) 80 mg 1X ONCE PO 12/30/20 16:30 12/30/20 16:31 DC 12/30/20 16:27 Trazodone HCl (Desyrel) 100 mg QHS PO 01/03/21 21:00 01/24/21 19:39 Trazodone HCl (Desyrel) 100 mg PRN QHS PRN PO INSOMNIA, 01/03/21 17:00 01/21/21 22:12 Lactic Acid (Lac-Hydrin) 1 addison BID TP 01/07/21 21:00 01/25/21 08:53 Quetiapine Fumarate (SEROquel) 37.5 mg TID PO 01/08/21 21:00 01/15/21 16:18 DC 01/15/21 14:31 Sertraline HCl (Zoloft) 100 mg DAILY PO 01/15/21 09:00 01/25/21 07:34 Risperidone (RisperDAL) 0.25 mg 0900,1300,1700 PO 01/16/21 09:00 01/17/21 18:15 DC 01/17/21 17:49 Risperidone (RisperDAL) 0.5 mg 1X PO 01/15/21 16:30 01/17/21 18:19 DC 01/15/21 16:25 Risperidone (RisperDAL) 0.25 mg 0900,1700 PO 01/18/21 09:00 01/18/21 18:47 DC 01/18/21 17:31 Risperidone (RisperDAL) 0.5 mg 1300 PO 01/18/21 13:00 01/18/21 18:47 DC 01/18/21 13:04 Risperidone (RisperDAL) 0.5 mg 0900,1300,1700 PO 01/19/21 09:00 01/25/21 07:36 Trazodone HCl (Desyrel) 12.5 mg 0900,1300,1700 PO 01/20/21 17:00 01/21/21 18:14 DC 01/21/21 17:19 Trazodone HCl (Desyrel) 12.5 mg 1300 PO 01/22/21 13:00 01/24/21 13:48 Trazodone HCl (Desyrel) 25 mg 0900,1700 PO 01/22/21 09:00 01/25/21 07:32 I have reviewed the current psychotropics carefully including drug interactions. Risk benefit ratio favors no change other than as noted in my dictated progress note. Diagnosis: Problems: (1) Major neurocognitive disorder (2) Impulse control disorder, unspecified (3) Anxiety disorder, unspecified (4) Dementia, vascular, with depression (5) Dementia, vascular, with delusions (6) Dementia in Alzheimer's disease with depression (7) Dementia in Alzheimer's disease with delusions (8) Dementia of the Alzheimer's type with early onset with behavioral disturbance DONA BOTELLO MD Jan 25, 2021 09:40
--- NOTE | 2021-01-25 10:10 | PDOC ---
Exam Note: Gus Note: This note is a late entry for 01/24/2021 covers elements not covered in my initial note. Subjective: The patient was seen face to face in the morning of 01/24/2021 for a treatment team meeting with Dolores Contreras and Denise (social director), Mikayla Fiore and Margot, activity therapy and Neris RN, discussed and reviewed the chart. The patient slept 5-1/2 hours previous night. Overall the patient was confused, compliant with medications, less exit seeking. He did receive Atarax previous night and was less agitated. Review of Systems: No CV, , pulmonary, eye, ENT system symptoms on review. Mental Status Exam: The patient is oriented to himself. Insight and judgment, recent and remote memory, attention and concentration, fund of knowledge is poor consistent with his diagnosis. Laboratory Data: Reviewed. Impression: Major neurocognitive disorder Alzheimer vascular with delusion, depression, behavioral disturbance. Anxiety disorder unspecified. Impulse control disorder unspecified. Plan: No change from initial note. We will continue the patient on current psychotropics. Social service staff are actively looking for placement. Assessment: Vital Signs/I&O: Vital Signs Date Time Temp Pulse Resp B/P (MAP) Pulse Ox O2 Delivery O2 Flow Rate FiO2 01/25/21 07:33 68 143/79 01/25/21 06:00 97.4 18 98 01/22/21 15:43 Room Air I & O 01/24/21 01/24/21 01/25/21 15:00 23:00 07:00 Intake Total 420 ml 480 ml Balance 420 ml 480 ml Current Medications: Meds: Current Medications Medications (Trade) Dose Ordered Sig/Evaristo Route PRN Reason Start Time Stop Time Status Last Admin Dose Admin Acetaminophen (Tylenol) 650 mg PRN Q6HRS PRN PO MILD PAIN / TEMP > 100.3'F 11/25/20 18:00 01/14/21 12:42 Multi-Ingredient Ointment (Analgesic [place]) 1 addison PRN QID PRN TP MUSCLE PAIN 11/25/20 18:00 Al Hydroxide/Mg Hydroxide (Mylanta Plus Xs) 15 ml PRN AFTMEALHC PRN PO DYSPEPSIA 11/25/20 18:00 01/21/21 21:18 Magnesium Hydroxide (Milk Of Magnesia) 2,400 mg PRN QHS PRN PO CONSTIPATION 11/25/20 18:00 12/13/20 08:36 Amlodipine Besylate (Norvasc) 10 mg DAILY PO 11/26/20 09:00 01/25/21 07:33 Aspirin (Aspirin Chewable) 81 mg DAILY PO 11/26/20 09:00 01/25/21 07:32 Carvedilol (Coreg) 6.25 mg BIDWMEALS PO 11/25/20 18:30 01/25/21 07:33 Lisinopril (Prinivil) 10 mg DAILY PO 11/26/20 09:00 11/26/20 16:16 DC Quetiapine Fumarate (SEROquel) 25 mg QHS PO 11/25/20 21:00 12/23/20 17:23 DC 12/22/20 20:04 Tamsulosin HCl (Flomax) 0.4 mg DAILY PO 11/26/20 09:00 01/25/21 07:33 Amoxicillin (Amoxil) 500 mg [id number] PO 11/25/20 21:00 12/02/20 14:01 DC 12/02/20 14:15 Atorvastatin Calcium (Lipitor) 40 mg QHS PO 11/25/20 21:00 01/24/21 19:40 Folic Acid (Folic Acid) 1 mg DAILY PO 11/26/20 09:00 01/25/21 07:34 Lidocaine (Lidoderm) 1 patch DAILY TD 11/26/20 09:00 01/25/21 07:32 Multivitamins/ Calcium (Thera-M Plus) 1 tab DAILY PO 11/26/20 09:00 01/25/21 07:32 Thiamine HCl (Vitamin B-1) 100 mg BID PO 11/25/20 21:00 01/25/21 07:32 Olanzapine (ZyPREXA ZYDIS) 2.5 mg PRN Q2HR PRN PO PSYCHOSIS 11/25/20 21:15 01/22/21 15:47 Trazodone HCl (Desyrel) 50 mg PRN QHS PRN PO INSOMNIA, MAY REPEAT IN 1HR 11/25/20 21:15 01/03/21 16:48 DC 01/03/21 02:21 Mirtazapine (Remeron) 7.5 mg QHS PO 11/26/20 21:00 11/28/20 12:23 DC 11/27/20 20:00 Lactobacillus Rhamnosus (Culturelle) 1 cap BID PO 11/27/20 09:00 01/25/21 07:33 Sertraline HCl (Zoloft) 25 mg DAILY PO 11/28/20 09:00 11/30/20 09:01 DC 11/30/20 08:39 Sertraline HCl (Zoloft) 50 mg DAILY PO 12/01/20 09:00 12/03/20 11:00 DC 12/03/20 08:05 Mirtazapine (Remeron) 15 mg QHS PO 11/28/20 21:00 11/29/20 18:47 DC 11/28/20 19:38 Hydroxyzine HCl (Atarax) 25 mg PRN Q2HR PRN PO ABDOMINAL CRAMPS 11/28/20 21:45 01/23/21 16:54 Lorazepam (Ativan) 0.5 mg PRN Q4HRS PRN PO ANXIETY / AGITATION 11/28/20 21:45 11/29/20 21:45 DC Amitriptyline HCl (Elavil) 25 mg QHS PO 11/29/20 21:00 12/23/20 17:23 DC 12/22/20 20:04 Melatonin (Melatonin) 3 mg QHS PO 11/29/20 21:00 01/24/21 19:39 Sertraline HCl (Zoloft) 75 mg DAILY PO 12/04/20 09:00 01/14/21 18:05 DC 01/14/21 08:49 Divalproex Sodium (Depakote Er) 500 mg QHS PO 12/02/20 21:00 12/05/20 12:29 DC 12/04/20 20:08 Divalproex Sodium (Depakote Er) 1,000 mg QHS PO 12/05/20 21:00 01/24/21 19:40 Quetiapine Fumarate (SEROquel) 12.5 mg DAILY PO 12/17/20 09:00 12/18/20 16:46 DC 12/18/20 08:01 Quetiapine Fumarate (SEROquel) 12.5 mg [id number] PO 12/19/20 09:00 12/23/20 17:23 DC 12/23/20 13:28 Quetiapine Fumarate (SEROquel) 25 mg TID PO 12/23/20 17:30 01/08/21 16:44 DC 01/08/21 12:48 Amitriptyline HCl (Elavil) 50 mg QHS PO 12/23/20 21:00 01/24/21 19:40 Furosemide (Lasix) 80 mg 1X ONCE PO 12/30/20 16:30 12/30/20 16:31 DC 12/30/20 16:27 Trazodone HCl (Desyrel) 100 mg QHS PO 01/03/21 21:00 01/24/21 19:39 Trazodone HCl (Desyrel) 100 mg PRN QHS PRN PO INSOMNIA, 01/03/21 17:00 01/21/21 22:12 Lactic Acid (Lac-Hydrin) 1 addison BID TP 01/07/21 21:00 01/25/21 08:53 Quetiapine Fumarate (SEROquel) 37.5 mg TID PO 01/08/21 21:00 01/15/21 16:18 DC 01/15/21 14:31 Sertraline HCl (Zoloft) 100 mg DAILY PO 01/15/21 09:00 01/25/21 07:34 Risperidone (RisperDAL) 0.25 mg 0900,1300,1700 PO 01/16/21 09:00 01/17/21 18:15 DC 01/17/21 17:49 Risperidone (RisperDAL) 0.5 mg 1X PO 01/15/21 16:30 01/17/21 18:19 DC 01/15/21 16:25 Risperidone (RisperDAL) 0.25 mg 0900,1700 PO 01/18/21 09:00 01/18/21 18:47 DC 01/18/21 17:31 Risperidone (RisperDAL) 0.5 mg 1300 PO 01/18/21 13:00 01/18/21 18:47 DC 01/18/21 13:04 Risperidone (RisperDAL) 0.5 mg 0900,1300,1700 PO 01/19/21 09:00 01/25/21 07:36 Trazodone HCl (Desyrel) 12.5 mg 0900,1300,1700 PO 01/20/21 17:00 01/21/21 18:14 DC 01/21/21 17:19 Trazodone HCl (Desyrel) 12.5 mg 1300 PO 01/22/21 13:00 01/24/21 13:48 Trazodone HCl (Desyrel) 25 mg 0900,1700 PO 01/22/21 09:00 01/25/21 07:32 I have reviewed the current psychotropics carefully including drug interactions. Risk benefit ratio favors no change other than as noted in my dictated progress note. Diagnosis: Problems: (1) Major neurocognitive disorder (2) Impulse control disorder, unspecified (3) Anxiety disorder, unspecified (4) Dementia, vascular, with depression (5) Dementia, vascular, with delusions (6) Dementia in Alzheimer's disease with depression (7) Dementia in Alzheimer's disease with delusions (8) Dementia of the Alzheimer's type with early onset with behavioral disturbance DONA BOTELLO MD Jan 25, 2021 10:10
--- NOTE | 2021-01-25 11:17 | NUR ---
Pt has been calm, cooperative, pleasantly confused, and med complaint this morning. He has participated in group activities and has been appropriate with his interactions with staff/patients. He is absent of SI/HI behaviors, absent of distraction/distress from possible VH/AH. He is alert to self only; this has been his baseline. Will pass on to the next shift.
--- NOTE | 2021-01-25 13:14 | NUR ---
MARY returned call to pt guardian Mell, to give her an update on pt. Gilmer still felt like pt behaviors were not under better control and still is not willing to accept pt. MARY questioned Mell if the search area could be increased; which at this time, she reports SW sending referrals to anywhere in the [facility]. The hope was closer to home and the kids would be able to visit him, but she does not feel this to be likely. MARY discussed with Mell the conversation had with pt son in which she was shocked. MARY will look at other surrounding areas and get back to Mell with an update.
[2021-01-25 15:20] VITALS: BP 123/78
--- NOTE | 2021-01-25 15:43 | NUR ---
D/t the nice weather the back patio area was opened up so pts could go outside for some fresh air and sunshine. The back patio area has a fence appox 6 ft tall around the entire perimeter for purpose of safety and to prevent elopement. On 2 occasions staff observed pt (Scottie) place a chair by the fence and attempt to step up onto the chair in what appears to be an attempt to scale the fence and go over it. Both times staff immediately intervened to stop the attempt at elopement. Pt has been brought inside d/t this behavior. Will pass on to the next shift.
[2021-01-25] MEDS: AMITRIPTYLINE HCL 50 MG TABLET PO SCH (20:04)
[2021-01-25] MEDS: MELATONIN 3 MG TABLET PO SCH (20:04)
[2021-01-25] MEDS: traZODone 100 MG TABLET. PO SCH (20:04)
[2021-01-25] MEDS: ATORVASTATIN CALCIUM 20 MG TABLET PO SCH (20:04)
[2021-01-25] MEDS: DIVALPROEX ER 500 MG TAB.ER.24H PO SCH (20:05)
--- NOTE | 2021-01-25 20:59 | PDOC ---
Exam Note: Gus Note: Please also refer to the separate dictated note~for this date of service dictated separately.~Patient seen individually. Discussed the patient with Nursing staff reviewed the chart.~Reviewed interim history and current functioning. Reviewed vital signs,~Labs/ Radiology~and current medications noted below. Continue current treatment with the changes noted in the dictated addendum note Assessment: Vital Signs/I&O: Vital Signs Date Time Temp Pulse Resp B/P (MAP) Pulse Ox O2 Delivery O2 Flow Rate FiO2 01/25/21 16:39 81 123/78 01/25/21 15:20 96.2 17 97 01/22/21 15:43 Room Air I & O 01/24/21 01/24/21 01/25/21 15:00 23:00 07:00 Intake Total 420 ml 480 ml Balance 420 ml 480 ml Current Medications: Meds: Current Medications Medications (Trade) Dose Ordered Sig/Evaristo Route PRN Reason Start Time Stop Time Status Last Admin Dose Admin Acetaminophen (Tylenol) 650 mg PRN Q6HRS PRN PO MILD PAIN / TEMP > 100.3'F 11/25/20 18:00 01/14/21 12:42 Multi-Ingredient Ointment (Analgesic [place]) 1 addison PRN QID PRN TP MUSCLE PAIN 11/25/20 18:00 Al Hydroxide/Mg Hydroxide (Mylanta Plus Xs) 15 ml PRN AFTMEALHC PRN PO DYSPEPSIA 11/25/20 18:00 01/21/21 21:18 Magnesium Hydroxide (Milk Of Magnesia) 2,400 mg PRN QHS PRN PO CONSTIPATION 11/25/20 18:00 12/13/20 08:36 Amlodipine Besylate (Norvasc) 10 mg DAILY PO 11/26/20 09:00 01/25/21 07:33 Aspirin (Aspirin Chewable) 81 mg DAILY PO 11/26/20 09:00 01/25/21 07:32 Carvedilol (Coreg) 6.25 mg BIDWMEALS PO 11/25/20 18:30 01/25/21 16:39 Lisinopril (Prinivil) 10 mg DAILY PO 11/26/20 09:00 11/26/20 16:16 DC Quetiapine Fumarate (SEROquel) 25 mg QHS PO 11/25/20 21:00 12/23/20 17:23 DC 12/22/20 20:04 Tamsulosin HCl (Flomax) 0.4 mg DAILY PO 11/26/20 09:00 01/25/21 07:33 Amoxicillin (Amoxil) 500 mg [id number] PO 11/25/20 21:00 12/02/20 14:01 DC 12/02/20 14:15 Atorvastatin Calcium (Lipitor) 40 mg QHS PO 11/25/20 21:00 01/25/21 20:04 Folic Acid (Folic Acid) 1 mg DAILY PO 11/26/20 09:00 01/25/21 07:34 Lidocaine (Lidoderm) 1 patch DAILY TD 11/26/20 09:00 01/25/21 07:32 Multivitamins/ Calcium (Thera-M Plus) 1 tab DAILY PO 11/26/20 09:00 01/25/21 07:32 Thiamine HCl (Vitamin B-1) 100 mg BID PO 11/25/20 21:00 01/25/21 20:04 Olanzapine (ZyPREXA ZYDIS) 2.5 mg PRN Q2HR PRN PO PSYCHOSIS 11/25/20 21:15 01/22/21 15:47 Trazodone HCl (Desyrel) 50 mg PRN QHS PRN PO INSOMNIA, MAY REPEAT IN 1HR 11/25/20 21:15 01/03/21 16:48 DC 01/03/21 02:21 Mirtazapine (Remeron) 7.5 mg QHS PO 11/26/20 21:00 11/28/20 12:23 DC 11/27/20 20:00 Lactobacillus Rhamnosus (Culturelle) 1 cap BID PO 11/27/20 09:00 01/25/21 20:04 Sertraline HCl (Zoloft) 25 mg DAILY PO 11/28/20 09:00 11/30/20 09:01 DC 11/30/20 08:39 Sertraline HCl (Zoloft) 50 mg DAILY PO 12/01/20 09:00 12/03/20 11:00 DC 12/03/20 08:05 Mirtazapine (Remeron) 15 mg QHS PO 11/28/20 21:00 11/29/20 18:47 DC 11/28/20 19:38 Hydroxyzine HCl (Atarax) 25 mg PRN Q2HR PRN PO ABDOMINAL CRAMPS 11/28/20 21:45 01/23/21 16:54 Lorazepam (Ativan) 0.5 mg PRN Q4HRS PRN PO ANXIETY / AGITATION 11/28/20 21:45 11/29/20 21:45 DC Amitriptyline HCl (Elavil) 25 mg QHS PO 11/29/20 21:00 12/23/20 17:23 DC 12/22/20 20:04 Melatonin (Melatonin) 3 mg QHS PO 11/29/20 21:00 01/25/21 20:04 Sertraline HCl (Zoloft) 75 mg DAILY PO 12/04/20 09:00 01/14/21 18:05 DC 01/14/21 08:49 Divalproex Sodium (Depakote Er) 500 mg QHS PO 12/02/20 21:00 12/05/20 12:29 DC 12/04/20 20:08 Divalproex Sodium (Depakote Er) 1,000 mg QHS PO 12/05/20 21:00 01/25/21 20:05 Quetiapine Fumarate (SEROquel) 12.5 mg DAILY PO 12/17/20 09:00 12/18/20 16:46 DC 12/18/20 08:01 Quetiapine Fumarate (SEROquel) 12.5 mg [id number] PO 12/19/20 09:00 12/23/20 17:23 DC 12/23/20 13:28 Quetiapine Fumarate (SEROquel) 25 mg TID PO 12/23/20 17:30 01/08/21 16:44 DC 01/08/21 12:48 Amitriptyline HCl (Elavil) 50 mg QHS PO 12/23/20 21:00 01/25/21 20:04 Furosemide (Lasix) 80 mg 1X ONCE PO 12/30/20 16:30 12/30/20 16:31 DC 12/30/20 16:27 Trazodone HCl (Desyrel) 100 mg QHS PO 01/03/21 21:00 01/25/21 20:04 Trazodone HCl (Desyrel) 100 mg PRN QHS PRN PO INSOMNIA, 01/03/21 17:00 01/21/21 22:12 Lactic Acid (Lac-Hydrin) 1 addison BID TP 01/07/21 21:00 01/25/21 20:05 Quetiapine Fumarate (SEROquel) 37.5 mg TID PO 01/08/21 21:00 01/15/21 16:18 DC 01/15/21 14:31 Sertraline HCl (Zoloft) 100 mg DAILY PO 01/15/21 09:00 01/25/21 07:34 Risperidone (RisperDAL) 0.25 mg 0900,1300,1700 PO 01/16/21 09:00 01/17/21 18:15 DC 01/17/21 17:49 Risperidone (RisperDAL) 0.5 mg 1X PO 01/15/21 16:30 01/17/21 18:19 DC 01/15/21 16:25 Risperidone (RisperDAL) 0.25 mg 0900,1700 PO 01/18/21 09:00 01/18/21 18:47 DC 01/18/21 17:31 Risperidone (RisperDAL) 0.5 mg 1300 PO 01/18/21 13:00 01/18/21 18:47 DC 01/18/21 13:04 Risperidone (RisperDAL) 0.5 mg 0900,1300,1700 PO 01/19/21 09:00 01/25/21 16:39 Trazodone HCl (Desyrel) 12.5 mg 0900,1300,1700 PO 01/20/21 17:00 01/21/21 18:14 DC 01/21/21 17:19 Trazodone HCl (Desyrel) 12.5 mg 1300 PO 01/22/21 13:00 01/25/21 14:13 Trazodone HCl (Desyrel) 25 mg 0900,1700 PO 01/22/21 09:00 01/25/21 16:40 I have reviewed the current psychotropics carefully including drug interactions. Risk benefit ratio favors no change other than as noted in my dictated progress note. Diagnosis: Problems: (1) Major neurocognitive disorder (2) Impulse control disorder, unspecified (3) Anxiety disorder, unspecified (4) Dementia, vascular, with depression (5) Dementia, vascular, with delusions (6) Dementia in Alzheimer's disease with depression (7) Dementia in Alzheimer's disease with delusions (8) Dementia of the Alzheimer's type with early onset with behavioral disturbance DONA BOTELLO MD Jan 25, 2021 20:58
--- NOTE | 2021-01-25 21:54 | NUR ---
This evening pt wandered in the halls or sat in day room. He as been calm and cooperative. He took HS meds whole without difficulty.
[2021-01-26] MEDS: traZODone 100 MG TABLET. PO PRN ×2 (01:50→21:05)
[2021-01-26] MEDS: ACETAMINOPHEN 325 MG TABLET PO PRN (01:50)
--- NOTE | 2021-01-26 01:50 | NUR ---
Pt has been up a few times recently trying get to work. PRN Trazodone and Tylenol given and he went to sleep after approx 30 minutes.
[2021-01-26 05:42] VITALS: BP 163/81
--- NOTE | 2021-01-26 07:25 | PDOC ---
Exam Note: Gus Note: This note is a late entry for 01/25/2021 covers elements not covered in my initial note. Subjective: The patient was seen face to face in the evening of 01/25/2021 with Neris OVIEDO, discussed and reviewed the chart. The patient slept 7-1/4 hours previous night. The patient is compliant with medications previous night. Today, he has been confused, wandering, redirects. It was a kayla day rather warm outside and the staff took all the patients to the backyard and the patient tried to put a chair to climb over the fence but redirected. Review of Systems: No CV, , pulmonary, eye, ENT system symptoms on review. Reliability poor. Mental Status Exam: The patient is oriented to himself. When I met with him in the evening I discussed with him about his attempt to elope but he was totally oblivious to this and understandably so given his diagnoses. No active suicidal or homicidal ideation. Insight and judgment, recent and remote memory, attention and concentration, fund of knowledge is poor consistent with his diagnosis. Laboratory Data: Reviewed. Impression: Major neurocognitive disorder Alzheimer vascular with delusion, depression, behavioral disturbance. Anxiety disorder unspecified. Impulse control disorder unspecified. Plan: For now no change from initial note but we will try and avoid taking him outside for now. Assessment: Vital Signs/I&O: Vital Signs Date Time Temp Pulse Resp B/P (MAP) Pulse Ox O2 Delivery O2 Flow Rate FiO2 01/26/21 05:42 98.0 69 18 163/81 (108) 98 01/22/21 15:43 Room Air I & O 01/25/21 01/25/21 01/26/21 15:00 23:00 07:00 Intake Total 720 ml 480 ml Balance 720 ml 480 ml Current Medications: Meds: Current Medications Medications (Trade) Dose Ordered Sig/Evaristo Route PRN Reason Start Time Stop Time Status Last Admin Dose Admin Acetaminophen (Tylenol) 650 mg PRN Q6HRS PRN PO MILD PAIN / TEMP > 100.3'F 11/25/20 18:00 01/26/21 01:50 Multi-Ingredient Ointment (Analgesic [place]) 1 addison PRN QID PRN TP MUSCLE PAIN 11/25/20 18:00 Al Hydroxide/Mg Hydroxide (Mylanta Plus Xs) 15 ml PRN AFTMEALHC PRN PO DYSPEPSIA 11/25/20 18:00 01/21/21 21:18 Magnesium Hydroxide (Milk Of Magnesia) 2,400 mg PRN QHS PRN PO CONSTIPATION 11/25/20 18:00 12/13/20 08:36 Amlodipine Besylate (Norvasc) 10 mg DAILY PO 11/26/20 09:00 01/25/21 07:33 Aspirin (Aspirin Chewable) 81 mg DAILY PO 11/26/20 09:00 01/25/21 07:32 Carvedilol (Coreg) 6.25 mg BIDWMEALS PO 11/25/20 18:30 01/25/21 16:39 Lisinopril (Prinivil) 10 mg DAILY PO 11/26/20 09:00 11/26/20 16:16 DC Quetiapine Fumarate (SEROquel) 25 mg QHS PO 11/25/20 21:00 12/23/20 17:23 DC 12/22/20 20:04 Tamsulosin HCl (Flomax) 0.4 mg DAILY PO 11/26/20 09:00 01/25/21 07:33 Amoxicillin (Amoxil) 500 mg [id number] PO 11/25/20 21:00 12/02/20 14:01 DC 12/02/20 14:15 Atorvastatin Calcium (Lipitor) 40 mg QHS PO 11/25/20 21:00 01/25/21 20:04 Folic Acid (Folic Acid) 1 mg DAILY PO 11/26/20 09:00 01/25/21 07:34 Lidocaine (Lidoderm) 1 patch DAILY TD 11/26/20 09:00 01/25/21 07:32 Multivitamins/ Calcium (Thera-M Plus) 1 tab DAILY PO 11/26/20 09:00 01/25/21 07:32 Thiamine HCl (Vitamin B-1) 100 mg BID PO 11/25/20 21:00 01/25/21 20:04 Olanzapine (ZyPREXA ZYDIS) 2.5 mg PRN Q2HR PRN PO PSYCHOSIS 11/25/20 21:15 01/22/21 15:47 Trazodone HCl (Desyrel) 50 mg PRN QHS PRN PO INSOMNIA, MAY REPEAT IN 1HR 11/25/20 21:15 01/03/21 16:48 DC 01/03/21 02:21 Mirtazapine (Remeron) 7.5 mg QHS PO 11/26/20 21:00 11/28/20 12:23 DC 11/27/20 20:00 Lactobacillus Rhamnosus (Culturelle) 1 cap BID PO 11/27/20 09:00 01/25/21 20:04 Sertraline HCl (Zoloft) 25 mg DAILY PO 11/28/20 09:00 11/30/20 09:01 DC 11/30/20 08:39 Sertraline HCl (Zoloft) 50 mg DAILY PO 12/01/20 09:00 12/03/20 11:00 DC 12/03/20 08:05 Mirtazapine (Remeron) 15 mg QHS PO 11/28/20 21:00 11/29/20 18:47 DC 11/28/20 19:38 Hydroxyzine HCl (Atarax) 25 mg PRN Q2HR PRN PO ABDOMINAL CRAMPS 11/28/20 21:45 01/23/21 16:54 Lorazepam (Ativan) 0.5 mg PRN Q4HRS PRN PO ANXIETY / AGITATION 11/28/20 21:45 11/29/20 21:45 DC Amitriptyline HCl (Elavil) 25 mg QHS PO 11/29/20 21:00 12/23/20 17:23 DC 12/22/20 20:04 Melatonin (Melatonin) 3 mg QHS PO 11/29/20 21:00 01/25/21 20:04 Sertraline HCl (Zoloft) 75 mg DAILY PO 12/04/20 09:00 01/14/21 18:05 DC 01/14/21 08:49 Divalproex Sodium (Depakote Er) 500 mg QHS PO 12/02/20 21:00 12/05/20 12:29 DC 12/04/20 20:08 Divalproex Sodium (Depakote Er) 1,000 mg QHS PO 12/05/20 21:00 01/25/21 20:05 Quetiapine Fumarate (SEROquel) 12.5 mg DAILY PO 12/17/20 09:00 12/18/20 16:46 DC 12/18/20 08:01 Quetiapine Fumarate (SEROquel) 12.5 mg [id number] PO 12/19/20 09:00 12/23/20 17:23 DC 12/23/20 13:28 Quetiapine Fumarate (SEROquel) 25 mg TID PO 12/23/20 17:30 01/08/21 16:44 DC 01/08/21 12:48 Amitriptyline HCl (Elavil) 50 mg QHS PO 12/23/20 21:00 01/25/21 20:04 Furosemide (Lasix) 80 mg 1X ONCE PO 12/30/20 16:30 12/30/20 16:31 DC 12/30/20 16:27 Trazodone HCl (Desyrel) 100 mg QHS PO 01/03/21 21:00 01/25/21 20:04 Trazodone HCl (Desyrel) 100 mg PRN QHS PRN PO INSOMNIA, 01/03/21 17:00 01/26/21 01:50 Lactic Acid (Lac-Hydrin) 1 addison BID TP 01/07/21 21:00 01/25/21 20:05 Quetiapine Fumarate (SEROquel) 37.5 mg TID PO 01/08/21 21:00 01/15/21 16:18 DC 01/15/21 14:31 Sertraline HCl (Zoloft) 100 mg DAILY PO 01/15/21 09:00 01/25/21 07:34 Risperidone (RisperDAL) 0.25 mg 0900,1300,1700 PO 01/16/21 09:00 01/17/21 18:15 DC 01/17/21 17:49 Risperidone (RisperDAL) 0.5 mg 1X PO 01/15/21 16:30 01/17/21 18:19 DC 01/15/21 16:25 Risperidone (RisperDAL) 0.25 mg 0900,1700 PO 01/18/21 09:00 01/18/21 18:47 DC 01/18/21 17:31 Risperidone (RisperDAL) 0.5 mg 1300 PO 01/18/21 13:00 01/18/21 18:47 DC 01/18/21 13:04 Risperidone (RisperDAL) 0.5 mg 0900,1300,1700 PO 01/19/21 09:00 01/25/21 16:39 Trazodone HCl (Desyrel) 12.5 mg 0900,1300,1700 PO 01/20/21 17:00 01/21/21 18:14 DC 01/21/21 17:19 Trazodone HCl (Desyrel) 12.5 mg 1300 PO 01/22/21 13:00 01/25/21 14:13 Trazodone HCl (Desyrel) 25 mg 0900,1700 PO 01/22/21 09:00 01/25/21 16:40 I have reviewed the current psychotropics carefully including drug interactions. Risk benefit ratio favors no change other than as noted in my dictated progress note. Diagnosis: Problems: (1) Major neurocognitive disorder (2) Impulse control disorder, unspecified (3) Anxiety disorder, unspecified (4) Dementia, vascular, with depression (5) Dementia, vascular, with delusions (6) Dementia in Alzheimer's disease with depression (7) Dementia in Alzheimer's disease with delusions (8) Dementia of the Alzheimer's type with early onset with behavioral disturbance DONA BOTELLO MD Jan 26, 2021 07:25
[2021-01-26] MEDS: ASPIRIN CHEWABLE 81 MG TABLET. PO SCH (07:59)
[2021-01-26] MEDS: MULTIVITAMIN with MINERAL TABLET. PO SCH (07:59)
[2021-01-26] MEDS: SERTRALINE 50 MG TABLET. PO SCH (07:59)
[2021-01-26] MEDS: CARVEDILOL 6.25 MG TABLET PO SCH ×2 (07:59→17:21)
[2021-01-26] MEDS: FOLIC ACID 1 MG TABLET PO SCH (07:59)
[2021-01-26] MEDS: risperiDONE 0.5 MG TABLET. PO SCH ×3 (08:00→17:21)
[2021-01-26] MEDS: amLODIPine BESYLATE 10 MG TABLET PO SCH (08:00)
[2021-01-26] MEDS: THIAMINE 100 MG TABLET. PO SCH ×2 (08:00→19:52)
[2021-01-26] MEDS: traZODone 50 MG TABLET. PO SCH ×3 (08:00→17:21)
[2021-01-26] MEDS: TAMSULOSIN 0.4 MG CAP.ER.24H. PO SCH (08:00)
[2021-01-26] MEDS: LACTOBACILLUS RHAMNOSUS GG 1 CAPSULE. PO SCH ×2 (08:01→19:52)
[2021-01-26] MEDS: LIDOCAINE (700MG/PATCH) PATCH. TD SCH (08:30)
[2021-01-26] MEDS: AMMONIUM LACTATE 12% TOPICAL LOTION 226GM BOTTLE. TP SCH ×2 (09:00→19:54)
--- NOTE | 2021-01-26 10:25 | NUR ---
Pt beginning to engage in wandering and exit seeking behaviors. PRN Zyprexa 2.5 mg PO administered
--- NOTE | 2021-01-26 10:36 | NUR ---
Pt has been cooperative and med complaint this shift. A&O to self only. He is appropriate in his interactions with patients and staff. He is absent of SI/HI behaviors or aggression. He has been wandering the unit and engaging in exit seeking which has required PRN Zyprexa once so far this shift. Will pass to the next shift.
[2021-01-26 17:20] VITALS: BP 121/79
[2021-01-26] MEDS: MELATONIN 3 MG TABLET PO SCH (19:52)
[2021-01-26] MEDS: ATORVASTATIN CALCIUM 20 MG TABLET PO SCH (19:52)
[2021-01-26] MEDS: AMITRIPTYLINE HCL 50 MG TABLET PO SCH (19:52)
[2021-01-26] MEDS: traZODone 100 MG TABLET. PO SCH (19:52)
[2021-01-26] MEDS: DIVALPROEX ER 500 MG TAB.ER.24H PO SCH (19:54)
--- NOTE | 2021-01-26 20:55 | PDOC ---
Exam Note: Gus Note: Please also refer to the separate dictated note~for this date of service dictated separately.~Patient seen individually. Discussed the patient with Nursing staff reviewed the chart.~Reviewed interim history and current functioning. Reviewed vital signs,~Labs/ Radiology~and current medications noted below. Continue current treatment with the changes noted in the dictated addendum note Assessment: Vital Signs/I&O: Vital Signs Date Time Temp Pulse Resp B/P (MAP) Pulse Ox O2 Delivery O2 Flow Rate FiO2 01/26/21 17:21 69 163/81 01/26/21 17:20 97.8 18 97 01/22/21 15:43 Room Air I & O 01/25/21 01/25/21 01/26/21 15:00 23:00 07:00 Intake Total 720 ml 480 ml Balance 720 ml 480 ml Current Medications: Meds: Current Medications Medications (Trade) Dose Ordered Sig/Evaristo Route PRN Reason Start Time Stop Time Status Last Admin Dose Admin Acetaminophen (Tylenol) 650 mg PRN Q6HRS PRN PO MILD PAIN / TEMP > 100.3'F 11/25/20 18:00 01/26/21 01:50 Multi-Ingredient Ointment (Analgesic [place]) 1 addison PRN QID PRN TP MUSCLE PAIN 11/25/20 18:00 Al Hydroxide/Mg Hydroxide (Mylanta Plus Xs) 15 ml PRN AFTMEALHC PRN PO DYSPEPSIA 11/25/20 18:00 01/21/21 21:18 Magnesium Hydroxide (Milk Of Magnesia) 2,400 mg PRN QHS PRN PO CONSTIPATION 11/25/20 18:00 12/13/20 08:36 Amlodipine Besylate (Norvasc) 10 mg DAILY PO 11/26/20 09:00 01/26/21 08:00 Aspirin (Aspirin Chewable) 81 mg DAILY PO 11/26/20 09:00 01/26/21 07:59 Carvedilol (Coreg) 6.25 mg BIDWMEALS PO 11/25/20 18:30 01/26/21 17:21 Lisinopril (Prinivil) 10 mg DAILY PO 11/26/20 09:00 11/26/20 16:16 DC Quetiapine Fumarate (SEROquel) 25 mg QHS PO 11/25/20 21:00 12/23/20 17:23 DC 12/22/20 20:04 Tamsulosin HCl (Flomax) 0.4 mg DAILY PO 11/26/20 09:00 01/26/21 08:00 Amoxicillin (Amoxil) 500 mg [id number] PO 11/25/20 21:00 12/02/20 14:01 DC 12/02/20 14:15 Atorvastatin Calcium (Lipitor) 40 mg QHS PO 11/25/20 21:00 01/26/21 19:52 Folic Acid (Folic Acid) 1 mg DAILY PO 11/26/20 09:00 01/26/21 07:59 Lidocaine (Lidoderm) 1 patch DAILY TD 11/26/20 09:00 01/25/21 07:32 Multivitamins/ Calcium (Thera-M Plus) 1 tab DAILY PO 11/26/20 09:00 01/26/21 07:59 Thiamine HCl (Vitamin B-1) 100 mg BID PO 11/25/20 21:00 01/26/21 19:52 Olanzapine (ZyPREXA ZYDIS) 2.5 mg PRN Q2HR PRN PO PSYCHOSIS 11/25/20 21:15 01/26/21 19:55 Trazodone HCl (Desyrel) 50 mg PRN QHS PRN PO INSOMNIA, MAY REPEAT IN 1HR 11/25/20 21:15 01/03/21 16:48 DC 01/03/21 02:21 Mirtazapine (Remeron) 7.5 mg QHS PO 11/26/20 21:00 11/28/20 12:23 DC 11/27/20 20:00 Lactobacillus Rhamnosus (Culturelle) 1 cap BID PO 11/27/20 09:00 01/26/21 19:52 Sertraline HCl (Zoloft) 25 mg DAILY PO 11/28/20 09:00 11/30/20 09:01 DC 11/30/20 08:39 Sertraline HCl (Zoloft) 50 mg DAILY PO 12/01/20 09:00 12/03/20 11:00 DC 12/03/20 08:05 Mirtazapine (Remeron) 15 mg QHS PO 11/28/20 21:00 11/29/20 18:47 DC 11/28/20 19:38 Hydroxyzine HCl (Atarax) 25 mg PRN Q2HR PRN PO ABDOMINAL CRAMPS 11/28/20 21:45 01/23/21 16:54 Lorazepam (Ativan) 0.5 mg PRN Q4HRS PRN PO ANXIETY / AGITATION 11/28/20 21:45 11/29/20 21:45 DC Amitriptyline HCl (Elavil) 25 mg QHS PO 11/29/20 21:00 12/23/20 17:23 DC 12/22/20 20:04 Melatonin (Melatonin) 3 mg QHS PO 11/29/20 21:00 01/26/21 19:52 Sertraline HCl (Zoloft) 75 mg DAILY PO 12/04/20 09:00 01/14/21 18:05 DC 01/14/21 08:49 Divalproex Sodium (Depakote Er) 500 mg QHS PO 12/02/20 21:00 12/05/20 12:29 DC 12/04/20 20:08 Divalproex Sodium (Depakote Er) 1,000 mg QHS PO 12/05/20 21:00 01/26/21 19:54 Quetiapine Fumarate (SEROquel) 12.5 mg DAILY PO 12/17/20 09:00 12/18/20 16:46 DC 12/18/20 08:01 Quetiapine Fumarate (SEROquel) 12.5 mg [id number] PO 12/19/20 09:00 12/23/20 17:23 DC 12/23/20 13:28 Quetiapine Fumarate (SEROquel) 25 mg TID PO 12/23/20 17:30 01/08/21 16:44 DC 01/08/21 12:48 Amitriptyline HCl (Elavil) 50 mg QHS PO 12/23/20 21:00 01/26/21 19:52 Furosemide (Lasix) 80 mg 1X ONCE PO 12/30/20 16:30 12/30/20 16:31 DC 12/30/20 16:27 Trazodone HCl (Desyrel) 100 mg QHS PO 01/03/21 21:00 01/26/21 19:52 Trazodone HCl (Desyrel) 100 mg PRN QHS PRN PO INSOMNIA, 01/03/21 17:00 01/26/21 01:50 Lactic Acid (Lac-Hydrin) 1 addison BID TP 01/07/21 21:00 01/26/21 19:54 Quetiapine Fumarate (SEROquel) 37.5 mg TID PO 01/08/21 21:00 01/15/21 16:18 DC 01/15/21 14:31 Sertraline HCl (Zoloft) 100 mg DAILY PO 01/15/21 09:00 01/26/21 07:59 Risperidone (RisperDAL) 0.25 mg 0900,1300,1700 PO 01/16/21 09:00 01/17/21 18:15 DC 01/17/21 17:49 Risperidone (RisperDAL) 0.5 mg 1X PO 01/15/21 16:30 01/17/21 18:19 DC 01/15/21 16:25 Risperidone (RisperDAL) 0.25 mg 0900,1700 PO 01/18/21 09:00 01/18/21 18:47 DC 01/18/21 17:31 Risperidone (RisperDAL) 0.5 mg 1300 PO 01/18/21 13:00 01/18/21 18:47 DC 01/18/21 13:04 Risperidone (RisperDAL) 0.5 mg 0900,1300,1700 PO 01/19/21 09:00 01/26/21 17:21 Trazodone HCl (Desyrel) 12.5 mg 0900,1300,1700 PO 01/20/21 17:00 01/21/21 18:14 DC 01/21/21 17:19 Trazodone HCl (Desyrel) 12.5 mg 1300 PO 01/22/21 13:00 01/26/21 14:49 Trazodone HCl (Desyrel) 25 mg 0900,1700 PO 01/22/21 09:00 01/26/21 17:21 I have reviewed the current psychotropics carefully including drug interactions. Risk benefit ratio favors no change other than as noted in my dictated progress note. Diagnosis: Problems: (1) Major neurocognitive disorder (2) Impulse control disorder, unspecified (3) Anxiety disorder, unspecified (4) Dementia, vascular, with depression (5) Dementia, vascular, with delusions (6) Dementia in Alzheimer's disease with depression (7) Dementia in Alzheimer's disease with delusions (8) Dementia of the Alzheimer's type with early onset with behavioral disturbance DONA BOTELLO MD Jan 26, 2021 20:55
[2021-01-26] MEDS: hydrOXYzine HCL 25 MG TABLET PO PRN (21:05)
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
[2021-01-27] MEDS: traZODone 100 MG TABLET. PO PRN ×2 (01:45→20:11)
[2021-01-27 05:50] VITALS: BP 144/70
[2021-01-27 06:57] LABS: BASO % 0 % (0-3); EOS # 0.2 x10^3/uL (0.0-0.7); EOS % 3 % (0-3); HEMATOCRIT 40.3 % (39.0-53.0); HEMOGLOBIN 13.5 g/dL (13.0-17.5); LYMPH # 1.4 x10^3/uL (1.0-4.8); LYMPH % 26 % (24-48); MEAN CORPUSCULAR HEMOGLOBIN 30 pg (25-35); MEAN CORPUSCULAR HGB CONC 34 g/dL (31-37); MEAN CORPUSCULAR VOLUME 90 fL (79-100); MONO # 0.7 x10^3/uL (0.0-1.1); MONO % 12 % (0-9); NEUT # 3.1 x10^3uL (1.8-7.7); NEUT % 58 % (31-73); PLATELET COUNT 279 x10^3/uL (140-400); RED CELL DISTRIBUTION WIDTH 14.6 % (11.5-14.5); WHITE BLOOD COUNT 5.4 x10^3/uL (4.0-11.0)
[2021-01-27 07:09] LABS: ALBUMIN 3.1 g/dL (3.4-5.0); ALBUMIN/GLOBULIN RATIO 0.8 (1.0-1.7); CALCIUM 9.1 mg/dL (8.5-10.1); GFR 71.5; POTASSIUM 3.8 mmol/L (3.5-5.1); TOTAL BILIRUBIN 0.5 mg/dL (0.2-1.0); TOTAL PROTEIN 7.2 g/dL (6.4-8.2)
[2021-01-27] MEDS: ASPIRIN CHEWABLE 81 MG TABLET. PO SCH (07:36)
[2021-01-27] MEDS: amLODIPine BESYLATE 10 MG TABLET PO SCH (07:36)
[2021-01-27] MEDS: risperiDONE 0.5 MG TABLET. PO SCH ×3 (07:36→16:56)
[2021-01-27] MEDS: MULTIVITAMIN with MINERAL TABLET. PO SCH (07:36)
[2021-01-27] MEDS: FOLIC ACID 1 MG TABLET PO SCH (07:36)
[2021-01-27] MEDS: TAMSULOSIN 0.4 MG CAP.ER.24H. PO SCH (07:36)
[2021-01-27] MEDS: LIDOCAINE (700MG/PATCH) PATCH. TD SCH (07:36)
[2021-01-27] MEDS: THIAMINE 100 MG TABLET. PO SCH ×2 (07:36→19:55)
[2021-01-27] MEDS: traZODone 50 MG TABLET. PO SCH ×3 (07:37→16:55)
[2021-01-27] MEDS: SERTRALINE 50 MG TABLET. PO SCH (07:37)
[2021-01-27] MEDS: LACTOBACILLUS RHAMNOSUS GG 1 CAPSULE. PO SCH ×2 (07:37→19:56)
[2021-01-27] MEDS: CARVEDILOL 6.25 MG TABLET PO SCH ×2 (07:37→16:56)
[2021-01-27] MEDS: AMMONIUM LACTATE 12% TOPICAL LOTION 226GM BOTTLE. TP SCH ×2 (07:42→19:57)
--- NOTE | 2021-01-27 07:42 | PDOC ---
Exam Note: Gus Note: This note is a late entry for 01/26/2021 covers elements not covered in my initial note. Subjective: The patient was seen face to face in the evening of 01/26/2021 with Neris OVIEDO, discussed and reviewed the chart. The patient slept 5-1/4 hours previous night. The patient is compliant with his h.s. medications. He is confused, wandering, done better today other than wandering but redirects. He received Zyprexa x1 p.r.n. Review of Systems: No CV, , pulmonary, eye, ENT system symptoms on review. Mental Status Exam: The patient is oriented to himself. No active suicidal or homicidal ideation. Insight and judgment, recent and remote memory, attention and concentration, fund of knowledge is poor consistent with his diagnosis. Laboratory Data: Reviewed. Impression: Major neurocognitive disorder Alzheimer vascular with delusion, depression, behavioral disturbance. Anxiety disorder unspecified. Impulse control disorder unspecified. Plan: No change from initial note. Assessment: Vital Signs/I&O: Vital Signs Date Time Temp Pulse Resp B/P (MAP) Pulse Ox O2 Delivery O2 Flow Rate FiO2 01/27/21 07:37 72 144/70 01/27/21 05:50 97.6 16 100 01/22/21 15:43 Room Air I & O 01/26/21 01/26/21 01/27/21 15:00 23:00 07:00 Intake Total 600 ml 320 ml Balance 600 ml 320 ml Labs: Laboratory Tests Test 01/27/21 06:34 White Blood Count 5.4 x10^3/uL (4.0-11.0) Red Blood Count 4.50 x10^6/uL (4.30-5.70) Hemoglobin 13.5 g/dL (13.0-17.5) Hematocrit 40.3 % (39.0-53.0) Mean Corpuscular Volume 90 fL (79-100) Mean Corpuscular Hemoglobin 30 pg (25-35) Mean Corpuscular Hemoglobin Concent 34 g/dL (31-37) Red Cell Distribution Width 14.6 % (11.5-14.5) H Platelet Count 279 x10^3/uL (140-400) Neutrophils (%) (Auto) 58 % (31-73) Lymphocytes (%) (Auto) 26 % (24-48) Monocytes (%) (Auto) 12 % (0-9) H Eosinophils (%) (Auto) 3 % (0-3) Basophils (%) (Auto) 0 % (0-3) Neutrophils # (Auto) 3.1 x10^3uL (1.8-7.7) Lymphocytes # (Auto) 1.4 x10^3/uL (1.0-4.8) Monocytes # (Auto) 0.7 x10^3/uL (0.0-1.1) Eosinophils # (Auto) 0.2 x10^3/uL (0.0-0.7) Basophils # (Auto) 0.0 x10^3/uL (0.0-0.2) Sodium Level 144 mmol/L (136-145) Potassium Level 3.8 mmol/L (3.5-5.1) Chloride Level 106 mmol/L (98-107) Carbon Dioxide Level 30 mmol/L (21-32) Anion Gap 8 (6-14) Blood Urea Nitrogen 19 mg/dL (8-26) Creatinine 1.0 mg/dL (0.7-1.3) Estimated GFR (Cockcroft-Gault) 71.5 BUN/Creatinine Ratio 19 (6-20) Glucose Level 82 mg/dL (70-99) Calcium Level 9.1 mg/dL (8.5-10.1) Total Bilirubin 0.5 mg/dL (0.2-1.0) Aspartate Amino Transferase (AST) 16 U/L (15-37) Alanine Aminotransferase (ALT) 26 U/L (16-63) Alkaline Phosphatase 88 U/L (46-116) Total Protein 7.2 g/dL (6.4-8.2) Albumin 3.1 g/dL (3.4-5.0) L Albumin/Globulin Ratio 0.8 (1.0-1.7) L Current Medications: Meds: Laboratory Tests Test 01/27/21 06:34 White Blood Count 5.4 x10^3/uL Red Blood Count 4.50 x10^6/uL Hemoglobin 13.5 g/dL Hematocrit 40.3 % Mean Corpuscular Volume 90 fL Mean Corpuscular Hemoglobin 30 pg Mean Corpuscular Hemoglobin Concent 34 g/dL Red Cell Distribution Width 14.6 % Platelet Count 279 x10^3/uL Neutrophils (%) (Auto) 58 % Lymphocytes (%) (Auto) 26 % Monocytes (%) (Auto) 12 % Eosinophils (%) (Auto) 3 % Basophils (%) (Auto) 0 % Neutrophils # (Auto) 3.1 x10^3uL Lymphocytes # (Auto) 1.4 x10^3/uL Monocytes # (Auto) 0.7 x10^3/uL Eosinophils # (Auto) 0.2 x10^3/uL Basophils # (Auto) 0.0 x10^3/uL Sodium Level 144 mmol/L Potassium Level 3.8 mmol/L Chloride Level 106 mmol/L Carbon Dioxide Level 30 mmol/L Anion Gap 8 Blood Urea Nitrogen 19 mg/dL Creatinine 1.0 mg/dL Estimated GFR (Cockcroft-Gault) 71.5 BUN/Creatinine Ratio 19 Glucose Level 82 mg/dL Calcium Level 9.1 mg/dL Total Bilirubin 0.5 mg/dL Aspartate Amino Transf (AST/SGOT) 16 U/L Alanine Aminotransferase (ALT/SGPT) 26 U/L Alkaline Phosphatase 88 U/L Total Protein 7.2 g/dL Albumin 3.1 g/dL Albumin/Globulin Ratio 0.8 Current Medications Medications (Trade) Dose Ordered Sig/Evaristo Route PRN Reason Start Time Stop Time Status Last Admin Dose Admin Acetaminophen (Tylenol) 650 mg PRN Q6HRS PRN PO MILD PAIN / TEMP > 100.3'F 11/25/20 18:00 01/26/21 01:50 Multi-Ingredient Ointment (Analgesic [place]) 1 addison PRN QID PRN TP MUSCLE PAIN 11/25/20 18:00 Al Hydroxide/Mg Hydroxide (Mylanta Plus Xs) 15 ml PRN AFTMEALHC PRN PO DYSPEPSIA 11/25/20 18:00 01/21/21 21:18 Magnesium Hydroxide (Milk Of Magnesia) 2,400 mg PRN QHS PRN PO CONSTIPATION 11/25/20 18:00 12/13/20 08:36 Amlodipine Besylate (Norvasc) 10 mg DAILY PO 11/26/20 09:00 01/27/21 07:36 Aspirin (Aspirin Chewable) 81 mg DAILY PO 11/26/20 09:00 01/27/21 07:36 Carvedilol (Coreg) 6.25 mg BIDWMEALS PO 11/25/20 18:30 01/27/21 07:37 Lisinopril (Prinivil) 10 mg DAILY PO 11/26/20 09:00 11/26/20 16:16 DC Quetiapine Fumarate (SEROquel) 25 mg QHS PO 11/25/20 21:00 12/23/20 17:23 DC 12/22/20 20:04 Tamsulosin HCl (Flomax) 0.4 mg DAILY PO 11/26/20 09:00 01/27/21 07:36 Amoxicillin (Amoxil) 500 mg [id number] PO 11/25/20 21:00 12/02/20 14:01 DC 12/02/20 14:15 Atorvastatin Calcium (Lipitor) 40 mg QHS PO 11/25/20 21:00 01/26/21 19:52 Folic Acid (Folic Acid) 1 mg DAILY PO 11/26/20 09:00 01/27/21 07:36 Lidocaine (Lidoderm) 1 patch DAILY TD 11/26/20 09:00 01/27/21 07:36 Multivitamins/ Calcium (Thera-M Plus) 1 tab DAILY PO 11/26/20 09:00 01/27/21 07:36 Thiamine HCl (Vitamin B-1) 100 mg BID PO 11/25/20 21:00 01/27/21 07:36 Olanzapine (ZyPREXA ZYDIS) 2.5 mg PRN Q2HR PRN PO PSYCHOSIS 11/25/20 21:15 01/26/21 19:55 Trazodone HCl (Desyrel) 50 mg PRN QHS PRN PO INSOMNIA, MAY REPEAT IN 1HR 11/25/20 21:15 01/03/21 16:48 DC 01/03/21 02:21 Mirtazapine (Remeron) 7.5 mg QHS PO 11/26/20 21:00 11/28/20 12:23 DC 11/27/20 20:00 Lactobacillus Rhamnosus (Culturelle) 1 cap BID PO 11/27/20 09:00 01/27/21 07:37 Sertraline HCl (Zoloft) 25 mg DAILY PO 11/28/20 09:00 11/30/20 09:01 DC 11/30/20 08:39 Sertraline HCl (Zoloft) 50 mg DAILY PO 12/01/20 09:00 12/03/20 11:00 DC 12/03/20 08:05 Mirtazapine (Remeron) 15 mg QHS PO 11/28/20 21:00 11/29/20 18:47 DC 11/28/20 19:38 Hydroxyzine HCl (Atarax) 25 mg PRN Q2HR PRN PO ABDOMINAL CRAMPS 11/28/20 21:45 01/26/21 21:05 Lorazepam (Ativan) 0.5 mg PRN Q4HRS PRN PO ANXIETY / AGITATION 11/28/20 21:45 11/29/20 21:45 DC Amitriptyline HCl (Elavil) 25 mg QHS PO 11/29/20 21:00 12/23/20 17:23 DC 12/22/20 20:04 Melatonin (Melatonin) 3 mg QHS PO 11/29/20 21:00 01/26/21 19:52 Sertraline HCl (Zoloft) 75 mg DAILY PO 12/04/20 09:00 01/14/21 18:05 DC 01/14/21 08:49 Divalproex Sodium (Depakote Er) 500 mg QHS PO 12/02/20 21:00 12/05/20 12:29 DC 12/04/20 20:08 Divalproex Sodium (Depakote Er) 1,000 mg QHS PO 12/05/20 21:00 01/26/21 19:54 Quetiapine Fumarate (SEROquel) 12.5 mg DAILY PO 12/17/20 09:00 12/18/20 16:46 DC 12/18/20 08:01 Quetiapine Fumarate (SEROquel) 12.5 mg [id number] PO 12/19/20 09:00 12/23/20 17:23 DC 12/23/20 13:28 Quetiapine Fumarate (SEROquel) 25 mg TID PO 12/23/20 17:30 01/08/21 16:44 DC 01/08/21 12:48 Amitriptyline HCl (Elavil) 50 mg QHS PO 12/23/20 21:00 01/26/21 19:52 Furosemide (Lasix) 80 mg 1X ONCE PO 12/30/20 16:30 12/30/20 16:31 DC 12/30/20 16:27 Trazodone HCl (Desyrel) 100 mg QHS PO 01/03/21 21:00 01/26/21 19:52 Trazodone HCl (Desyrel) 100 mg PRN QHS PRN PO INSOMNIA, 01/03/21 17:00 01/27/21 01:45 Lactic Acid (Lac-Hydrin) 1 addison BID TP 01/07/21 21:00 01/26/21 19:54 Quetiapine Fumarate (SEROquel) 37.5 mg TID PO 01/08/21 21:00 01/15/21 16:18 DC 01/15/21 14:31 Sertraline HCl (Zoloft) 100 mg DAILY PO 01/15/21 09:00 01/27/21 07:37 Risperidone (RisperDAL) 0.25 mg 0900,1300,1700 PO 01/16/21 09:00 01/17/21 18:15 DC 01/17/21 17:49 Risperidone (RisperDAL) 0.5 mg 1X PO 01/15/21 16:30 01/17/21 18:19 DC 01/15/21 16:25 Risperidone (RisperDAL) 0.25 mg 0900,1700 PO 01/18/21 09:00 01/18/21 18:47 DC 01/18/21 17:31 Risperidone (RisperDAL) 0.5 mg 1300 PO 01/18/21 13:00 01/18/21 18:47 DC 01/18/21 13:04 Risperidone (RisperDAL) 0.5 mg 0900,1300,1700 PO 01/19/21 09:00 01/27/21 07:36 Trazodone HCl (Desyrel) 12.5 mg 0900,1300,1700 PO 01/20/21 17:00 01/21/21 18:14 DC 01/21/21 17:19 Trazodone HCl (Desyrel) 12.5 mg 1300 PO 01/22/21 13:00 01/26/21 14:49 Trazodone HCl (Desyrel) 25 mg 0900,1700 PO 01/22/21 09:00 01/27/21 07:37 I have reviewed the current psychotropics carefully including drug interactions. Risk benefit ratio favors no change other than as noted in my dictated progress note. Diagnosis: Problems: (1) Major neurocognitive disorder (2) Impulse control disorder, unspecified (3) Anxiety disorder, unspecified (4) Dementia, vascular, with depression (5) Dementia, vascular, with delusions (6) Dementia in Alzheimer's disease with depression (7) Dementia in Alzheimer's disease with delusions (8) Dementia of the Alzheimer's type with early onset with behavioral disturbance DONA BOTELLO MD Jan 27, 2021 07:42
[2021-01-27 16:01] VITALS: BP 159/91
--- NOTE | 2021-01-27 16:25 | NUR ---
Pt up adl in halls. Has been less intrusive today. Incontinent at times. PRN's utilized with good results. Compliant with meds and cares.
[2021-01-27] MEDS: AMITRIPTYLINE HCL 50 MG TABLET PO SCH (19:55)
[2021-01-27] MEDS: MELATONIN 3 MG TABLET PO SCH (19:56)
[2021-01-27] MEDS: DIVALPROEX ER 500 MG TAB.ER.24H PO SCH (19:56)
[2021-01-27] MEDS: ATORVASTATIN CALCIUM 20 MG TABLET PO SCH (19:56)
[2021-01-27] MEDS: traZODone 100 MG TABLET. PO SCH (19:56)
--- NOTE | 2021-01-27 20:40 | PDOC ---
Exam Note: Gus Note: Please also refer to the separate dictated note~for this date of service dictated separately.~Patient seen individually. Discussed the patient with Nursing staff reviewed the chart.~Reviewed interim history and current functioning. Reviewed vital signs,~Labs/ Radiology~and current medications noted below. Continue current treatment with the changes noted in the dictated addendum note Assessment: Vital Signs/I&O: Vital Signs Date Time Temp Pulse Resp B/P (MAP) Pulse Ox O2 Delivery O2 Flow Rate FiO2 01/27/21 16:56 88 159/91 01/27/21 16:01 97.2 20 98 Room Air I & O 01/26/21 01/26/21 01/27/21 15:00 23:00 07:00 Intake Total 600 ml 320 ml Balance 600 ml 320 ml Labs: Laboratory Tests Test 01/27/21 06:34 White Blood Count 5.4 x10^3/uL (4.0-11.0) Red Blood Count 4.50 x10^6/uL (4.30-5.70) Hemoglobin 13.5 g/dL (13.0-17.5) Hematocrit 40.3 % (39.0-53.0) Mean Corpuscular Volume 90 fL (79-100) Mean Corpuscular Hemoglobin 30 pg (25-35) Mean Corpuscular Hemoglobin Concent 34 g/dL (31-37) Red Cell Distribution Width 14.6 % (11.5-14.5) H Platelet Count 279 x10^3/uL (140-400) Neutrophils (%) (Auto) 58 % (31-73) Lymphocytes (%) (Auto) 26 % (24-48) Monocytes (%) (Auto) 12 % (0-9) H Eosinophils (%) (Auto) 3 % (0-3) Basophils (%) (Auto) 0 % (0-3) Neutrophils # (Auto) 3.1 x10^3uL (1.8-7.7) Lymphocytes # (Auto) 1.4 x10^3/uL (1.0-4.8) Monocytes # (Auto) 0.7 x10^3/uL (0.0-1.1) Eosinophils # (Auto) 0.2 x10^3/uL (0.0-0.7) Basophils # (Auto) 0.0 x10^3/uL (0.0-0.2) Sodium Level 144 mmol/L (136-145) Potassium Level 3.8 mmol/L (3.5-5.1) Chloride Level 106 mmol/L (98-107) Carbon Dioxide Level 30 mmol/L (21-32) Anion Gap 8 (6-14) Blood Urea Nitrogen 19 mg/dL (8-26) Creatinine 1.0 mg/dL (0.7-1.3) Estimated GFR (Cockcroft-Gault) 71.5 BUN/Creatinine Ratio 19 (6-20) Glucose Level 82 mg/dL (70-99) Calcium Level 9.1 mg/dL (8.5-10.1) Total Bilirubin 0.5 mg/dL (0.2-1.0) Aspartate Amino Transferase (AST) 16 U/L (15-37) Alanine Aminotransferase (ALT) 26 U/L (16-63) Alkaline Phosphatase 88 U/L (46-116) Total Protein 7.2 g/dL (6.4-8.2) Albumin 3.1 g/dL (3.4-5.0) L Albumin/Globulin Ratio 0.8 (1.0-1.7) L Current Medications: Meds: Laboratory Tests Test 01/27/21 06:34 White Blood Count 5.4 x10^3/uL Red Blood Count 4.50 x10^6/uL Hemoglobin 13.5 g/dL Hematocrit 40.3 % Mean Corpuscular Volume 90 fL Mean Corpuscular Hemoglobin 30 pg Mean Corpuscular Hemoglobin Concent 34 g/dL Red Cell Distribution Width 14.6 % Platelet Count 279 x10^3/uL Neutrophils (%) (Auto) 58 % Lymphocytes (%) (Auto) 26 % Monocytes (%) (Auto) 12 % Eosinophils (%) (Auto) 3 % Basophils (%) (Auto) 0 % Neutrophils # (Auto) 3.1 x10^3uL Lymphocytes # (Auto) 1.4 x10^3/uL Monocytes # (Auto) 0.7 x10^3/uL Eosinophils # (Auto) 0.2 x10^3/uL Basophils # (Auto) 0.0 x10^3/uL Sodium Level 144 mmol/L Potassium Level 3.8 mmol/L Chloride Level 106 mmol/L Carbon Dioxide Level 30 mmol/L Anion Gap 8 Blood Urea Nitrogen 19 mg/dL Creatinine 1.0 mg/dL Estimated GFR (Cockcroft-Gault) 71.5 BUN/Creatinine Ratio 19 Glucose Level 82 mg/dL Calcium Level 9.1 mg/dL Total Bilirubin 0.5 mg/dL Aspartate Amino Transf (AST/SGOT) 16 U/L Alanine Aminotransferase (ALT/SGPT) 26 U/L Alkaline Phosphatase 88 U/L Total Protein 7.2 g/dL Albumin 3.1 g/dL Albumin/Globulin Ratio 0.8 Current Medications Medications (Trade) Dose Ordered Sig/Evaristo Route PRN Reason Start Time Stop Time Status Last Admin Dose Admin Acetaminophen (Tylenol) 650 mg PRN Q6HRS PRN PO MILD PAIN / TEMP > 100.3'F 11/25/20 18:00 01/26/21 01:50 Multi-Ingredient Ointment (Analgesic [place]) 1 addison PRN QID PRN TP MUSCLE PAIN 11/25/20 18:00 Al Hydroxide/Mg Hydroxide (Mylanta Plus Xs) 15 ml PRN AFTMEALHC PRN PO DYSPEPSIA 11/25/20 18:00 01/21/21 21:18 Magnesium Hydroxide (Milk Of Magnesia) 2,400 mg PRN QHS PRN PO CONSTIPATION 11/25/20 18:00 12/13/20 08:36 Amlodipine Besylate (Norvasc) 10 mg DAILY PO 11/26/20 09:00 01/27/21 07:36 Aspirin (Aspirin Chewable) 81 mg DAILY PO 11/26/20 09:00 01/27/21 07:36 Carvedilol (Coreg) 6.25 mg BIDWMEALS PO 11/25/20 18:30 01/27/21 16:56 Lisinopril (Prinivil) 10 mg DAILY PO 11/26/20 09:00 11/26/20 16:16 DC Quetiapine Fumarate (SEROquel) 25 mg QHS PO 11/25/20 21:00 12/23/20 17:23 DC 12/22/20 20:04 Tamsulosin HCl (Flomax) 0.4 mg DAILY PO 11/26/20 09:00 01/27/21 07:36 Amoxicillin (Amoxil) 500 mg [id number] PO 11/25/20 21:00 12/02/20 14:01 DC 12/02/20 14:15 Atorvastatin Calcium (Lipitor) 40 mg QHS PO 11/25/20 21:00 01/27/21 19:56 Folic Acid (Folic Acid) 1 mg DAILY PO 11/26/20 09:00 01/27/21 07:36 Lidocaine (Lidoderm) 1 patch DAILY TD 11/26/20 09:00 01/27/21 07:36 Multivitamins/ Calcium (Thera-M Plus) 1 tab DAILY PO 11/26/20 09:00 01/27/21 07:36 Thiamine HCl (Vitamin B-1) 100 mg BID PO 11/25/20 21:00 01/27/21 19:55 Olanzapine (ZyPREXA ZYDIS) 2.5 mg PRN Q2HR PRN PO PSYCHOSIS 11/25/20 21:15 01/27/21 07:42 Trazodone HCl (Desyrel) 50 mg PRN QHS PRN PO INSOMNIA, MAY REPEAT IN 1HR 11/25/20 21:15 01/03/21 16:48 DC 01/03/21 02:21 Mirtazapine (Remeron) 7.5 mg QHS PO 11/26/20 21:00 11/28/20 12:23 DC 11/27/20 20:00 Lactobacillus Rhamnosus (Culturelle) 1 cap BID PO 11/27/20 09:00 01/27/21 19:56 Sertraline HCl (Zoloft) 25 mg DAILY PO 11/28/20 09:00 11/30/20 09:01 DC 11/30/20 08:39 Sertraline HCl (Zoloft) 50 mg DAILY PO 12/01/20 09:00 12/03/20 11:00 DC 12/03/20 08:05 Mirtazapine (Remeron) 15 mg QHS PO 11/28/20 21:00 11/29/20 18:47 DC 11/28/20 19:38 Hydroxyzine HCl (Atarax) 25 mg PRN Q2HR PRN PO ABDOMINAL CRAMPS 11/28/20 21:45 01/26/21 21:05 Lorazepam (Ativan) 0.5 mg PRN Q4HRS PRN PO ANXIETY / AGITATION 11/28/20 21:45 11/29/20 21:45 DC Amitriptyline HCl (Elavil) 25 mg QHS PO 11/29/20 21:00 12/23/20 17:23 DC 12/22/20 20:04 Melatonin (Melatonin) 3 mg QHS PO 11/29/20 21:00 01/27/21 19:56 Sertraline HCl (Zoloft) 75 mg DAILY PO 12/04/20 09:00 01/14/21 18:05 DC 01/14/21 08:49 Divalproex Sodium (Depakote Er) 500 mg QHS PO 12/02/20 21:00 12/05/20 12:29 DC 12/04/20 20:08 Divalproex Sodium (Depakote Er) 1,000 mg QHS PO 12/05/20 21:00 01/27/21 19:56 Quetiapine Fumarate (SEROquel) 12.5 mg DAILY PO 12/17/20 09:00 12/18/20 16:46 DC 12/18/20 08:01 Quetiapine Fumarate (SEROquel) 12.5 mg [id number] PO 12/19/20 09:00 12/23/20 17:23 DC 12/23/20 13:28 Quetiapine Fumarate (SEROquel) 25 mg TID PO 12/23/20 17:30 01/08/21 16:44 DC 01/08/21 12:48 Amitriptyline HCl (Elavil) 50 mg QHS PO 12/23/20 21:00 01/27/21 19:55 Furosemide (Lasix) 80 mg 1X ONCE PO 12/30/20 16:30 12/30/20 16:31 DC 12/30/20 16:27 Trazodone HCl (Desyrel) 100 mg QHS PO 01/03/21 21:00 01/27/21 19:56 Trazodone HCl (Desyrel) 100 mg PRN QHS PRN PO INSOMNIA, 01/03/21 17:00 01/27/21 20:11 Lactic Acid (Lac-Hydrin) 1 addison BID TP 01/07/21 21:00 01/27/21 19:57 Quetiapine Fumarate (SEROquel) 37.5 mg TID PO 01/08/21 21:00 01/15/21 16:18 DC 01/15/21 14:31 Sertraline HCl (Zoloft) 100 mg DAILY PO 01/15/21 09:00 01/27/21 07:37 Risperidone (RisperDAL) 0.25 mg 0900,1300,1700 PO 01/16/21 09:00 01/17/21 18:15 DC 01/17/21 17:49 Risperidone (RisperDAL) 0.5 mg 1X PO 01/15/21 16:30 01/17/21 18:19 DC 01/15/21 16:25 Risperidone (RisperDAL) 0.25 mg 0900,1700 PO 01/18/21 09:00 01/18/21 18:47 DC 01/18/21 17:31 Risperidone (RisperDAL) 0.5 mg 1300 PO 01/18/21 13:00 01/18/21 18:47 DC 01/18/21 13:04 Risperidone (RisperDAL) 0.5 mg 0900,1300,1700 PO 01/19/21 09:00 01/27/21 16:56 Trazodone HCl (Desyrel) 12.5 mg 0900,1300,1700 PO 01/20/21 17:00 01/21/21 18:14 DC 01/21/21 17:19 Trazodone HCl (Desyrel) 12.5 mg 1300 PO 01/22/21 13:00 01/27/21 12:52 Trazodone HCl (Desyrel) 25 mg 0900,1700 PO 01/22/21 09:00 01/27/21 16:55 I have reviewed the current psychotropics carefully including drug interactions. Risk benefit ratio favors no change other than as noted in my dictated progress note. Diagnosis: Problems: (1) Major neurocognitive disorder (2) Impulse control disorder, unspecified (3) Anxiety disorder, unspecified (4) Dementia, vascular, with depression (5) Dementia, vascular, with delusions (6) Dementia in Alzheimer's disease with depression (7) Dementia in Alzheimer's disease with delusions (8) Dementia of the Alzheimer's type with early onset with behavioral disturbance DONA BOTELLO MD Jan 27, 2021 20:40
--- NOTE | 2021-01-27 22:01 | NUR ---
Nursing Note Pt wandering the halls, intrusive, ties and unties pants as he wanders the units. Confused, disoriented, looking for his car and keys. Tying to order car parts with peers. Redirects much easier this pm.
[2021-01-28] MEDS: traZODone 50 MG TABLET. PO SCH ×3 (08:18→17:01)
[2021-01-28] MEDS: MULTIVITAMIN with MINERAL TABLET. PO SCH (08:18)
[2021-01-28] MEDS: ASPIRIN CHEWABLE 81 MG TABLET. PO SCH (08:18)
[2021-01-28] MEDS: LIDOCAINE (700MG/PATCH) PATCH. TD SCH (08:18)
[2021-01-28] MEDS: FOLIC ACID 1 MG TABLET PO SCH (08:19)
[2021-01-28] MEDS: THIAMINE 100 MG TABLET. PO SCH ×2 (08:19→20:26)
[2021-01-28] MEDS: CARVEDILOL 6.25 MG TABLET PO SCH ×2 (08:19→17:00)
[2021-01-28] MEDS: amLODIPine BESYLATE 10 MG TABLET PO SCH (08:19)
[2021-01-28] MEDS: risperiDONE 0.5 MG TABLET. PO SCH ×3 (08:19→17:01)
[2021-01-28] MEDS: TAMSULOSIN 0.4 MG CAP.ER.24H. PO SCH (08:19)
[2021-01-28] MEDS: LACTOBACILLUS RHAMNOSUS GG 1 CAPSULE. PO SCH ×2 (08:19→20:26)
[2021-01-28] MEDS: SERTRALINE 50 MG TABLET. PO SCH (08:19)
[2021-01-28] MEDS: AMMONIUM LACTATE 12% TOPICAL LOTION 226GM BOTTLE. TP SCH ×2 (08:34→20:27)
[2021-01-28 16:10] VITALS: BP 100/64
[2021-01-28] MEDS ORDERED: MAGNESIUM CITRATE 296 ML SOLUTION. PO ONE (18:00)
--- NOTE | 2021-01-28 18:35 | NUR ---
Pt up adl. Wanders in halls. Has been pleasant most of day. At supper pt was irritable, exit seeking and hard to redirect. Attempted to give Zydis. Pt in Dr and c/o upset stomach. Coughed on some food and vomited a small amount undigested food x3. Abd round. BS hypo. Pt self toilets. Last BM unknown. Dr Dowling notified. KUB done. Mag citrate given x 1.
--- NOTE | 2021-01-28 18:55 | RAD ---
Exam: Abdomen one view INDICATION: Nausea vomiting TECHNIQUE: Supine view of the abdomen Comparisons: None FINDINGS: Air and stool are noted throughout the colon to level the rectum in a nonobstructive bowel gas patter n. No suspicious masses or calcifications. Degenerative change in the lumbar spine. Otherwise, visualized soft tissues are unremarkable. IMPRESSION: Nonobstructive bowel gas pattern. Electronically signed by: Shirley Sanchez MD (01/28/2021 6:53 PM) LAWANDA
[2021-01-28] MEDS: DIVALPROEX ER 500 MG TAB.ER.24H PO SCH (20:26)
[2021-01-28] MEDS: MELATONIN 3 MG TABLET PO SCH (20:26)
[2021-01-28] MEDS: ATORVASTATIN CALCIUM 20 MG TABLET PO SCH (20:26)
[2021-01-28] MEDS: traZODone 100 MG TABLET. PO SCH (20:26)
[2021-01-28] MEDS: AMITRIPTYLINE HCL 50 MG TABLET PO SCH (20:26)
--- NOTE | 2021-01-28 21:19 | PDOC ---
Exam Note: Gus Note: Please also refer to the separate dictated note~for this date of service dictated separately.~Patient seen individually. Discussed the patient with Nursing staff reviewed the chart.~Reviewed interim history and current functioning. Reviewed vital signs,~Labs/ Radiology~and current medications noted below. Continue current treatment with the changes noted in the dictated addendum note Assessment: Vital Signs/I&O: Vital Signs Date Time Temp Pulse Resp B/P (MAP) Pulse Ox O2 Delivery O2 Flow Rate FiO2 01/28/21 17:00 76 100/64 01/28/21 16:10 97.6 17 98 01/27/21 16:01 Room Air I & O 01/27/21 01/27/21 01/28/21 14:59 22:59 06:59 Intake Total 600 ml 600 ml Balance 600 ml 600 ml Current Medications: Meds: Current Medications Medications (Trade) Dose Ordered Sig/Evaristo Route PRN Reason Start Time Stop Time Status Last Admin Dose Admin Magnesium Citrate (Citroma) 296 ml 1X ONCE PO 01/28/21 18:00 01/28/21 18:02 DC 01/28/21 18:00 I have reviewed the current psychotropics carefully including drug interactions. Risk benefit ratio favors no change other than as noted in my dictated progress note. Diagnosis: Problems: (1) Major neurocognitive disorder (2) Impulse control disorder, unspecified (3) Anxiety disorder, unspecified (4) Dementia, vascular, with depression (5) Dementia, vascular, with delusions (6) Dementia in Alzheimer's disease with depression (7) Dementia in Alzheimer's disease with delusions (8) Dementia of the Alzheimer's type with early onset with behavioral disturbance DONA BOTELLO MD Jan 28, 2021 21:19
[2021-01-28] MEDS: traZODone 100 MG TABLET. PO PRN (23:55)
--- NOTE | 2021-01-29 00:51 | NUR ---
Pt agitated this PM, exit seeking and irritable. Compliant with meds. PRN zyprexa given in addition to scheduled medications. Pt was relocated to quiet sarkar, where pt wandered, attempted to exit, increased agitation regarding lights being on. Attempted to verbally redirect, walked with pt, and attempted to help pt to bed. PRN trazadone given, pt able to be directed to bed at approx. 0045. Will continue to monitor.
[2021-01-29 06:19] VITALS: BP 164/79
--- NOTE | 2021-01-29 07:26 | PDOC ---
Exam Note: Gus Note: This note is a late entry for 01/27/2021 covers elements not covered in my initial note. Subjective: The patient was seen individually in the evening of 01/27/2021 with Charmaine OVIEDO, discussed and reviewed the chart. The patient slept 5 hours previous night. The patient Zyprexa and trazodone x2 at night to help him sleep along with Atarax. He has been confused, walking up and down the hallway, less attempts to elope. Received Zyprexa in the morning, somewhat incontinent. Review of Systems: No CV, , pulmonary, eye, ENT system symptoms on review. Mental Status Exam: The patient is oriented to himself. As I met with he walked up and down the hallway, oblivious of his surroundings but less agitated and calmer. Insight and judgment, recent and remote memory, attention and concentration, fund of knowledge is poor consistent with his diagnosis. Laboratory Data: Reviewed. Impression: Major neurocognitive disorder Alzheimer vascular with delusion, depression, behavioral disturbance. Anxiety disorder unspecified. Impulse control disorder unspecified. Plan: No change from initial note. Assessment: Vital Signs/I&O: Vital Signs Date Time Temp Pulse Resp B/P (MAP) Pulse Ox O2 Delivery O2 Flow Rate FiO2 01/29/21 06:19 96.9 63 18 164/79 (107) 98 Room Air I & O 01/28/21 01/28/21 01/29/21 14:59 22:59 06:59 Intake Total 720 ml 720 ml 240 ml Balance 720 ml 720 ml 240 ml Current Medications: Meds: Current Medications Medications (Trade) Dose Ordered Sig/Evaristo Route PRN Reason Start Time Stop Time Status Last Admin Dose Admin Acetaminophen (Tylenol) 650 mg PRN Q6HRS PRN PO MILD PAIN / TEMP > 100.3'F 11/25/20 18:00 01/26/21 01:50 Multi-Ingredient Ointment (Analgesic [place]) 1 addison PRN QID PRN TP MUSCLE PAIN 11/25/20 18:00 Al Hydroxide/Mg Hydroxide (Mylanta Plus Xs) 15 ml PRN AFTMEALHC PRN PO DYSPEPSIA 11/25/20 18:00 01/21/21 21:18 Magnesium Hydroxide (Milk Of Magnesia) 2,400 mg PRN QHS PRN PO CONSTIPATION 11/25/20 18:00 12/13/20 08:36 Amlodipine Besylate (Norvasc) 10 mg DAILY PO 11/26/20 09:00 01/28/21 08:19 Aspirin (Aspirin Chewable) 81 mg DAILY PO 11/26/20 09:00 01/28/21 08:18 Carvedilol (Coreg) 6.25 mg BIDWMEALS PO 11/25/20 18:30 01/28/21 08:19 Lisinopril (Prinivil) 10 mg DAILY PO 11/26/20 09:00 11/26/20 16:16 DC Quetiapine Fumarate (SEROquel) 25 mg QHS PO 11/25/20 21:00 12/23/20 17:23 DC 12/22/20 20:04 Tamsulosin HCl (Flomax) 0.4 mg DAILY PO 11/26/20 09:00 01/28/21 08:19 Amoxicillin (Amoxil) 500 mg [id number] PO 11/25/20 21:00 12/02/20 14:01 DC 12/02/20 14:15 Atorvastatin Calcium (Lipitor) 40 mg QHS PO 11/25/20 21:00 01/28/21 20:26 Folic Acid (Folic Acid) 1 mg DAILY PO 11/26/20 09:00 01/28/21 08:19 Lidocaine (Lidoderm) 1 patch DAILY TD 11/26/20 09:00 01/28/21 08:18 Multivitamins/ Calcium (Thera-M Plus) 1 tab DAILY PO 11/26/20 09:00 01/28/21 08:18 Thiamine HCl (Vitamin B-1) 100 mg BID PO 11/25/20 21:00 01/28/21 20:26 Olanzapine (ZyPREXA ZYDIS) 2.5 mg PRN Q2HR PRN PO PSYCHOSIS 11/25/20 21:15 01/28/21 20:33 Trazodone HCl (Desyrel) 50 mg PRN QHS PRN PO INSOMNIA, MAY REPEAT IN 1HR 11/25/20 21:15 01/03/21 16:48 DC 01/03/21 02:21 Mirtazapine (Remeron) 7.5 mg QHS PO 11/26/20 21:00 11/28/20 12:23 DC 11/27/20 20:00 Lactobacillus Rhamnosus (Culturelle) 1 cap BID PO 11/27/20 09:00 01/28/21 20:26 Sertraline HCl (Zoloft) 25 mg DAILY PO 11/28/20 09:00 11/30/20 09:01 DC 11/30/20 08:39 Sertraline HCl (Zoloft) 50 mg DAILY PO 12/01/20 09:00 12/03/20 11:00 DC 12/03/20 08:05 Mirtazapine (Remeron) 15 mg QHS PO 11/28/20 21:00 11/29/20 18:47 DC 11/28/20 19:38 Hydroxyzine HCl (Atarax) 25 mg PRN Q2HR PRN PO ABDOMINAL CRAMPS 11/28/20 21:45 01/26/21 21:05 Lorazepam (Ativan) 0.5 mg PRN Q4HRS PRN PO ANXIETY / AGITATION 11/28/20 21:45 11/29/20 21:45 DC Amitriptyline HCl (Elavil) 25 mg QHS PO 11/29/20 21:00 12/23/20 17:23 DC 12/22/20 20:04 Melatonin (Melatonin) 3 mg QHS PO 11/29/20 21:00 01/28/21 20:26 Sertraline HCl (Zoloft) 75 mg DAILY PO 12/04/20 09:00 01/14/21 18:05 DC 01/14/21 08:49 Divalproex Sodium (Depakote Er) 500 mg QHS PO 12/02/20 21:00 12/05/20 12:29 DC 12/04/20 20:08 Divalproex Sodium (Depakote Er) 1,000 mg QHS PO 12/05/20 21:00 01/28/21 20:26 Quetiapine Fumarate (SEROquel) 12.5 mg DAILY PO 12/17/20 09:00 12/18/20 16:46 DC 12/18/20 08:01 Quetiapine Fumarate (SEROquel) 12.5 mg [id number] PO 12/19/20 09:00 12/23/20 17:23 DC 12/23/20 13:28 Quetiapine Fumarate (SEROquel) 25 mg TID PO 12/23/20 17:30 01/08/21 16:44 DC 01/08/21 12:48 Amitriptyline HCl (Elavil) 50 mg QHS PO 12/23/20 21:00 01/28/21 20:26 Furosemide (Lasix) 80 mg 1X ONCE PO 12/30/20 16:30 12/30/20 16:31 DC 12/30/20 16:27 Trazodone HCl (Desyrel) 100 mg QHS PO 01/03/21 21:00 01/28/21 20:26 Trazodone HCl (Desyrel) 100 mg PRN QHS PRN PO INSOMNIA, 01/03/21 17:00 01/28/21 23:55 Lactic Acid (Lac-Hydrin) 1 addison BID TP 01/07/21 21:00 01/28/21 20:27 Quetiapine Fumarate (SEROquel) 37.5 mg TID PO 01/08/21 21:00 01/15/21 16:18 DC 01/15/21 14:31 Sertraline HCl (Zoloft) 100 mg DAILY PO 01/15/21 09:00 01/28/21 08:19 Risperidone (RisperDAL) 0.25 mg 0900,1300,1700 PO 01/16/21 09:00 01/17/21 18:15 DC 01/17/21 17:49 Risperidone (RisperDAL) 0.5 mg 1X PO 01/15/21 16:30 01/17/21 18:19 DC 01/15/21 16:25 Risperidone (RisperDAL) 0.25 mg 0900,1700 PO 01/18/21 09:00 01/18/21 18:47 DC 01/18/21 17:31 Risperidone (RisperDAL) 0.5 mg 1300 PO 01/18/21 13:00 01/18/21 18:47 DC 01/18/21 13:04 Risperidone (RisperDAL) 0.5 mg 0900,1300,1700 PO 01/19/21 09:00 01/28/21 17:01 Trazodone HCl (Desyrel) 12.5 mg 0900,1300,1700 PO 01/20/21 17:00 2/27/21 18:14 DC 01/21/21 17:19 Trazodone HCl (Desyrel) 12.5 mg 1300 PO 01/22/21 13:00 01/28/21 12:27 Trazodone HCl (Desyrel) 25 mg 0900,1700 PO 01/22/21 09:00 01/28/21 17:01 Magnesium Citrate (Citroma) 296 ml 1X ONCE PO 01/28/21 18:00 01/28/21 18:02 DC 01/28/21 18:00 Current Medications Medications (Trade) Dose Ordered Sig/Evaristo Route PRN Reason Start Time Stop Time Status Last Admin Dose Admin Magnesium Citrate (Citroma) 296 ml 1X ONCE PO 01/28/21 18:00 01/28/21 18:02 DC 01/28/21 18:00 I have reviewed the current psychotropics carefully including drug interactions. Risk benefit ratio favors no change other than as noted in my dictated progress note. Diagnosis: Problems: (1) Major neurocognitive disorder (2) Impulse control disorder, unspecified (3) Anxiety disorder, unspecified (4) Dementia, vascular, with depression (5) Dementia, vascular, with delusions (6) Dementia in Alzheimer's disease with depression (7) Dementia in Alzheimer's disease with delusions (8) Dementia of the Alzheimer's type with early onset with behavioral disturbance DONA BOTELLO MD Jan 29, 2021 07:26
--- NOTE | 2021-01-29 07:48 | PDOC ---
Exam Note: Gus Note: This note is a late entry for 01/28/2021 covers elements not covered in my initial note. Subjective: The patient was seen individually in the evening of 01/28/2021 with Charmaine OVIEDO, discussed and reviewed the chart. The patient slept 6 hours previous night. He was agitated in the evening. Received Zyprexa p.r.n. He seemed to have some vomiting as well. We will defer to Dr. Dowling. He may have some constipation. KUB is being done. He slept better previous night with two trazodone. He is somewhat obsessive, repetitive regarding discharge, anxious. Review of Systems: No CV, , pulmonary, eye, ENT system symptoms on review. Mental Status Exam: The patient is oriented to himself. He seemed somewhat obsessive, anxious, repetitive, followed me around the unit. Insight and judgment, recent and remote memory, attention and concentration, fund of knowledge is poor consistent with his diagnosis. Laboratory Data: Reviewed. Impression: Major neurocognitive disorder Alzheimer vascular with delusion, depression, behavioral disturbance. Anxiety disorder unspecified. Impulse control disorder unspecified. Plan: No change from initial note. We will change the patients Zoloft to Luvox 25 mg a day for 3 days, then 50 mg a day after that. We will leave everything else unchanged for now. Assessment: Vital Signs/I&O: Vital Signs Date Time Temp Pulse Resp B/P (MAP) Pulse Ox O2 Delivery O2 Flow Rate FiO2 01/29/21 06:19 96.9 63 18 164/79 (107) 98 Room Air I & O 01/28/21 01/28/21 01/29/21 15:00 23:00 07:00 Intake Total 720 ml 720 ml 240 ml Balance 720 ml 720 ml 240 ml Current Medications: Meds: Current Medications Medications (Trade) Dose Ordered Sig/Evaristo Route PRN Reason Start Time Stop Time Status Last Admin Dose Admin Acetaminophen (Tylenol) 650 mg PRN Q6HRS PRN PO MILD PAIN / TEMP > 100.3'F 11/25/20 18:00 01/26/21 01:50 Multi-Ingredient Ointment (Analgesic [place]) 1 addison PRN QID PRN TP MUSCLE PAIN 11/25/20 18:00 Al Hydroxide/Mg Hydroxide (Mylanta Plus Xs) 15 ml PRN AFTMEALHC PRN PO DYSPEPSIA 11/25/20 18:00 01/21/21 21:18 Magnesium Hydroxide (Milk Of Magnesia) 2,400 mg PRN QHS PRN PO CONSTIPATION 11/25/20 18:00 12/13/20 08:36 Amlodipine Besylate (Norvasc) 10 mg DAILY PO 11/26/20 09:00 01/28/21 08:19 Aspirin (Aspirin Chewable) 81 mg DAILY PO 11/26/20 09:00 01/28/21 08:18 Carvedilol (Coreg) 6.25 mg BIDWMEALS PO 11/25/20 18:30 01/28/21 08:19 Lisinopril (Prinivil) 10 mg DAILY PO 11/26/20 09:00 11/26/20 16:16 DC Quetiapine Fumarate (SEROquel) 25 mg QHS PO 11/25/20 21:00 12/23/20 17:23 DC 12/22/20 20:04 Tamsulosin HCl (Flomax) 0.4 mg DAILY PO 11/26/20 09:00 01/28/21 08:19 Amoxicillin (Amoxil) 500 mg [id number] PO 11/25/20 21:00 12/02/20 14:01 DC 12/02/20 14:15 Atorvastatin Calcium (Lipitor) 40 mg QHS PO 11/25/20 21:00 01/28/21 20:26 Folic Acid (Folic Acid) 1 mg DAILY PO 11/26/20 09:00 01/28/21 08:19 Lidocaine (Lidoderm) 1 patch DAILY TD 11/26/20 09:00 01/28/21 08:18 Multivitamins/ Calcium (Thera-M Plus) 1 tab DAILY PO 11/26/20 09:00 01/28/21 08:18 Thiamine HCl (Vitamin B-1) 100 mg BID PO 11/25/20 21:00 01/28/21 20:26 Olanzapine (ZyPREXA ZYDIS) 2.5 mg PRN Q2HR PRN PO PSYCHOSIS 11/25/20 21:15 01/28/21 20:33 Trazodone HCl (Desyrel) 50 mg PRN QHS PRN PO INSOMNIA, MAY REPEAT IN 1HR 11/25/20 21:15 01/03/21 16:48 DC 01/03/21 02:21 Mirtazapine (Remeron) 7.5 mg QHS PO 11/26/20 21:00 11/28/20 12:23 DC 11/27/20 20:00 Lactobacillus Rhamnosus (Culturelle) 1 cap BID PO 11/27/20 09:00 01/28/21 20:26 Sertraline HCl (Zoloft) 25 mg DAILY PO 11/28/20 09:00 11/30/20 09:01 DC 11/30/20 08:39 Sertraline HCl (Zoloft) 50 mg DAILY PO 12/01/20 09:00 12/03/20 11:00 DC 12/03/20 08:05 Mirtazapine (Remeron) 15 mg QHS PO 11/28/20 21:00 11/29/20 18:47 DC 11/28/20 19:38 Hydroxyzine HCl (Atarax) 25 mg PRN Q2HR PRN PO ABDOMINAL CRAMPS 11/28/20 21:45 01/26/21 21:05 Lorazepam (Ativan) 0.5 mg PRN Q4HRS PRN PO ANXIETY / AGITATION 11/28/20 21:45 11/29/20 21:45 DC Amitriptyline HCl (Elavil) 25 mg QHS PO 11/29/20 21:00 12/23/20 17:23 DC 12/22/20 20:04 Melatonin (Melatonin) 3 mg QHS PO 11/29/20 21:00 01/28/21 20:26 Sertraline HCl (Zoloft) 75 mg DAILY PO 12/04/20 09:00 01/14/21 18:05 DC 01/14/21 08:49 Divalproex Sodium (Depakote Er) 500 mg QHS PO 12/02/20 21:00 12/05/20 12:29 DC 12/04/20 20:08 Divalproex Sodium (Depakote Er) 1,000 mg QHS PO 12/05/20 21:00 01/28/21 20:26 Quetiapine Fumarate (SEROquel) 12.5 mg DAILY PO 12/17/20 09:00 12/18/20 16:46 DC 12/18/20 08:01 Quetiapine Fumarate (SEROquel) 12.5 mg [id number] PO 12/19/20 09:00 12/23/20 17:23 DC 12/23/20 13:28 Quetiapine Fumarate (SEROquel) 25 mg TID PO 12/23/20 17:30 01/08/21 16:44 DC 01/08/21 12:48 Amitriptyline HCl (Elavil) 50 mg QHS PO 12/23/20 21:00 01/28/21 20:26 Furosemide (Lasix) 80 mg 1X ONCE PO 12/30/20 16:30 12/30/20 16:31 DC 12/30/20 16:27 Trazodone HCl (Desyrel) 100 mg QHS PO 01/03/21 21:00 01/28/21 20:26 Trazodone HCl (Desyrel) 100 mg PRN QHS PRN PO INSOMNIA, 01/03/21 17:00 01/28/21 23:55 Lactic Acid (Lac-Hydrin) 1 addison BID TP 01/07/21 21:00 01/28/21 20:27 Quetiapine Fumarate (SEROquel) 37.5 mg TID PO 01/08/21 21:00 01/15/21 16:18 DC 01/15/21 14:31 Sertraline HCl (Zoloft) 100 mg DAILY PO 01/15/21 09:00 01/28/21 08:19 Risperidone (RisperDAL) 0.25 mg 0900,1300,1700 PO 01/16/21 09:00 01/17/21 18:15 DC 01/17/21 17:49 Risperidone (RisperDAL) 0.5 mg 1X PO 01/15/21 16:30 01/17/21 18:19 DC 01/15/21 16:25 Risperidone (RisperDAL) 0.25 mg 0900,1700 PO 01/18/21 09:00 01/18/21 18:47 DC 01/18/21 17:31 Risperidone (RisperDAL) 0.5 mg 1300 PO 01/18/21 13:00 01/18/21 18:47 DC 01/18/21 13:04 Risperidone (RisperDAL) 0.5 mg 0900,1300,1700 PO 01/19/21 09:00 01/28/21 17:01 Trazodone HCl (Desyrel) 12.5 mg 0900,1300,1700 PO 01/20/21 17:00 01/21/21 18:14 DC 01/21/21 17:19 Trazodone HCl (Desyrel) 12.5 mg 1300 PO 01/22/21 13:00 01/28/21 12:27 Trazodone HCl (Desyrel) 25 mg 0900,1700 PO 01/22/21 09:00 01/28/21 17:01 Magnesium Citrate (Citroma) 296 ml 1X ONCE PO 01/28/21 18:00 01/28/21 18:02 DC 01/28/21 18:00 Current Medications Medications (Trade) Dose Ordered Sig/Evaristo Route PRN Reason Start Time Stop Time Status Last Admin Dose Admin Magnesium Citrate (Citroma) 296 ml 1X ONCE PO 01/28/21 18:00 01/28/21 18:02 DC 01/28/21 18:00 I have reviewed the current psychotropics carefully including drug interactions. Risk benefit ratio favors no change other than as noted in my dictated progress note. Diagnosis: Problems: (1) Major neurocognitive disorder (2) Impulse control disorder, unspecified (3) Anxiety disorder, unspecified (4) Dementia, vascular, with depression (5) Dementia, vascular, with delusions (6) Dementia in Alzheimer's disease with depression (7) Dementia in Alzheimer's disease with delusions (8) Dementia of the Alzheimer's type with early onset with behavioral disturbance DONA BOTELLO MD Jan 29, 2021 07:47
[2021-01-29] MEDS: LIDOCAINE (700MG/PATCH) PATCH. TD SCH (07:49)
[2021-01-29] MEDS: FOLIC ACID 1 MG TABLET PO SCH (07:50)
[2021-01-29] MEDS: traZODone 50 MG TABLET. PO SCH ×3 (07:50→17:10)
[2021-01-29] MEDS: MULTIVITAMIN with MINERAL TABLET. PO SCH (07:50)
[2021-01-29] MEDS: LACTOBACILLUS RHAMNOSUS GG 1 CAPSULE. PO SCH ×2 (07:50→19:21)
[2021-01-29] MEDS: THIAMINE 100 MG TABLET. PO SCH ×2 (07:50→19:20)
[2021-01-29] MEDS: TAMSULOSIN 0.4 MG CAP.ER.24H. PO SCH (07:51)
[2021-01-29] MEDS: risperiDONE 0.5 MG TABLET. PO SCH ×3 (07:51→17:09)
[2021-01-29] MEDS: SERTRALINE 50 MG TABLET. PO SCH (07:51)
[2021-01-29] MEDS: amLODIPine BESYLATE 10 MG TABLET PO SCH (07:51)
[2021-01-29] MEDS: CARVEDILOL 6.25 MG TABLET PO SCH ×2 (07:51→17:09)
[2021-01-29] MEDS: ASPIRIN CHEWABLE 81 MG TABLET. PO SCH (07:51)
[2021-01-29] MEDS: AMMONIUM LACTATE 12% TOPICAL LOTION 226GM BOTTLE. TP SCH ×2 (07:53→20:03)
--- NOTE | 2021-01-29 15:52 | NUR ---
Pt has been drowsy today. Up to BR and was incontinent of loose stool. Pt laid back down. Stated he hoped he got over this soon. Pt doesn't remember he had a laxative yesterday for a full bowel per KUB. Has been compliant with meds and cares.
[2021-01-29 16:45] VITALS: BP 163/93
[2021-01-29] MEDS: ATORVASTATIN CALCIUM 20 MG TABLET PO SCH (19:20)
[2021-01-29] MEDS: MELATONIN 3 MG TABLET PO SCH (19:20)
[2021-01-29] MEDS: AMITRIPTYLINE HCL 50 MG TABLET PO SCH (19:21)
[2021-01-29] MEDS: traZODone 100 MG TABLET. PO SCH (19:21)
[2021-01-29] MEDS: DIVALPROEX ER 500 MG TAB.ER.24H PO SCH (19:21)
--- NOTE | 2021-01-29 20:53 | PDOC ---
Exam Note: Gus Note: Please also refer to the separate dictated note~for this date of service dictated separately.~Patient seen individually. Discussed the patient with Nursing staff reviewed the chart.~Reviewed interim history and current functioning. Reviewed vital signs,~Labs/ Radiology~and current medications noted below. Continue current treatment with the changes noted in the dictated addendum note Assessment: Vital Signs/I&O: Vital Signs Date Time Temp Pulse Resp B/P (MAP) Pulse Ox O2 Delivery O2 Flow Rate FiO2 01/29/21 17:09 77 163/93 01/29/21 16:45 97.4 20 98 Room Air I & O 01/28/21 01/28/21 01/29/21 14:59 22:59 06:59 Intake Total 720 ml 720 ml 240 ml Balance 720 ml 720 ml 240 ml Current Medications: Meds: Current Medications Medications (Trade) Dose Ordered Sig/Evaristo Route PRN Reason Start Time Stop Time Status Last Admin Dose Admin Fluvoxamine Maleate (Luvox) 25 mg QHS PO 01/29/21 21:00 01/31/21 21:01 01/29/21 20:02 I have reviewed the current psychotropics carefully including drug interactions. Risk benefit ratio favors no change other than as noted in my dictated progress note. Diagnosis: Problems: (1) Major neurocognitive disorder (2) Impulse control disorder, unspecified (3) Anxiety disorder, unspecified (4) Dementia, vascular, with depression (5) Dementia, vascular, with delusions (6) Dementia in Alzheimer's disease with depression (7) Dementia in Alzheimer's disease with delusions (8) Dementia of the Alzheimer's type with early onset with behavioral disturbance DONA BOTELLO MD Jan 29, 2021 20:53
--- NOTE | 2021-01-29 22:58 | NUR ---
Karly morales has been calm and cooperative. He walked around some then vivited with peers in the day room. Meds were taken whole without difficulty and he has been sleeping.
[2021-01-30 06:12] VITALS: BP 132/74
--- NOTE | 2021-01-30 08:14 | PDOC ---
Exam Note: Gus Note: This note is a late entry for 01/29/2021 covers elements not covered in my initial note. Subjective: The patient was seen individually in the evening of 01/29/2021 with Charmaine OVIEDO, discussed and reviewed the chart. The patient slept 2-3/4 hours previous night. He has been intermittently restless, had to be in the West hallway to reduce stimuli till about 1 p.m. He had a large bowel movement and some diarrhea consequent to the magnesium citrate he received yesterday. He remains somewhat obsessive, anxious. Review of Systems: No CV, , pulmonary, eye, ENT system symptoms on review. Mental Status Exam: The patient is oriented to himself. Insight and judgment, recent and remote memory, attention and concentration, fund of knowledge is poor consistent with his diagnosis. Laboratory Data: Reviewed. Impression: Major neurocognitive disorder Alzheimer vascular with delusion, depression, behavioral disturbance. Anxiety disorder unspecified. Impulse control disorder unspecified. Plan: Given some of his obsessive thought processes, we will change Zoloft 100 mg a day to fluvoxamine 25 mg a day for 3 days and 50 mg a day. Rest unchanged. Assessment: Vital Signs/I&O: Vital Signs Date Time Temp Pulse Resp B/P (MAP) Pulse Ox O2 Delivery O2 Flow Rate FiO2 01/30/21 06:12 97.0 66 18 132/74 (93) 94 Room Air I & O 01/29/21 01/29/21 01/30/21 15:00 23:00 07:00 Intake Total 840 ml Balance 840 ml Current Medications: Meds: Current Medications Medications (Trade) Dose Ordered Sig/Evaristo Route PRN Reason Start Time Stop Time Status Last Admin Dose Admin Fluvoxamine Maleate (Luvox) 25 mg QHS PO 01/29/21 21:00 01/31/21 21:01 01/29/21 20:02 I have reviewed the current psychotropics carefully including drug interactions. Risk benefit ratio favors no change other than as noted in my dictated progress note. Diagnosis: Problems: (1) Major neurocognitive disorder (2) Impulse control disorder, unspecified (3) Anxiety disorder, unspecified (4) Dementia, vascular, with depression (5) Dementia, vascular, with delusions (6) Dementia in Alzheimer's disease with depression (7) Dementia in Alzheimer's disease with delusions (8) Dementia of the Alzheimer's type with early onset with behavioral disturbance DONA BOTELLO MD Jan 30, 2021 08:14
[2021-01-30] MEDS: AMMONIUM LACTATE 12% TOPICAL LOTION 226GM BOTTLE. TP SCH ×2 (09:00→20:14)
[2021-01-30] MEDS: CARVEDILOL 6.25 MG TABLET PO SCH ×2 (10:49→16:48)
[2021-01-30] MEDS: amLODIPine BESYLATE 10 MG TABLET PO SCH (10:49)
[2021-01-30] MEDS: TAMSULOSIN 0.4 MG CAP.ER.24H. PO SCH (10:49)
[2021-01-30] MEDS: LIDOCAINE (700MG/PATCH) PATCH. TD SCH (10:50)
[2021-01-30] MEDS: MULTIVITAMIN with MINERAL TABLET. PO SCH (10:50)
[2021-01-30] MEDS: FOLIC ACID 1 MG TABLET PO SCH (10:50)
[2021-01-30] MEDS: risperiDONE 0.5 MG TABLET. PO SCH ×3 (10:50→16:47)
[2021-01-30] MEDS: ASPIRIN CHEWABLE 81 MG TABLET. PO SCH (10:50)
[2021-01-30] MEDS: THIAMINE 100 MG TABLET. PO SCH ×2 (10:50→20:12)
[2021-01-30] MEDS: LACTOBACILLUS RHAMNOSUS GG 1 CAPSULE. PO SCH ×2 (10:50→20:13)
[2021-01-30] MEDS: traZODone 50 MG TABLET. PO SCH ×3 (10:50→16:47)
--- NOTE | 2021-01-30 12:12 | NUR ---
WEEKLY ACTIVITY THERAPY NOTE Date of Admission: 11/25/2020 Date of AT Assessment: 11/28/2020 Precipitating behaviors that initiated intake and admission: Patient was reported to be confused, agitated, delusional, hallucinating, removing IVs, and not cooperating with cares at [address] [facility]. Goal aimed: to increase engagement and socialization Initial Goal: Pt. will participate in at least one Activity Therapy group per day. Weekly progress towards goal: did not achieve: no group Saturday, groups Group participation level: 3 min, 2 full Weekly highlights: dancing on patio afternoon Behaviors observed: hand on female pt legs, redirectable Plan: no change to goal Beneficial adaptations: music, dancing
[2021-01-30 15:58] VITALS: BP 106/68
[2021-01-30] MEDS: hydrOXYzine HCL 25 MG TABLET PO PRN ×2 (17:54→22:11)
[2021-01-30] MEDS: ACETAMINOPHEN 325 MG TABLET PO PRN ×2 (17:54→23:15)
--- NOTE | 2021-01-30 18:30 | NUR ---
Patient has been calm, compliant, wandering, and pleasantly confused throughout most of this shift. He has repeatedly asked how to get to work while wandering and occasionally door checking. Just before dinner, patient attempted to force his way past staff off of the unit, he was escorted to the west sarkar and was able to calm down quickly. Later, he was in the day room and became intrusive with a female patient, calling her Cristo, and became agitated with staff when they attempted to redirect him. [facility] medications provided per eMAR. Will continue to monitor and report to oncoming staff.
[2021-01-30] MEDS: ATORVASTATIN CALCIUM 20 MG TABLET PO SCH (20:12)
[2021-01-30] MEDS: AMITRIPTYLINE HCL 50 MG TABLET PO SCH (20:13)
[2021-01-30] MEDS: MELATONIN 3 MG TABLET PO SCH (20:13)
[2021-01-30] MEDS: DIVALPROEX ER 500 MG TAB.ER.24H PO SCH (20:13)
[2021-01-30] MEDS: traZODone 100 MG TABLET. PO SCH (20:13)
--- NOTE | 2021-01-30 21:13 | PDOC ---
Exam Note: Gus Note: Please also refer to the separate dictated note~for this date of service dictated separately.~Patient seen individually. Discussed the patient with Nursing staff reviewed the chart.~Reviewed interim history and current functioning. Reviewed vital signs,~Labs/ Radiology~and current medications noted below. Continue current treatment with the changes noted in the dictated addendum note Assessment: Vital Signs/I&O: Vital Signs Date Time Temp Pulse Resp B/P (MAP) Pulse Ox O2 Delivery O2 Flow Rate FiO2 01/30/21 16:48 51 106/68 01/30/21 15:58 98.6 16 96 01/30/21 06:12 Room Air I & O 01/29/21 01/29/21 01/30/21 14:59 22:59 06:59 Intake Total 840 ml Balance 840 ml Current Medications: Meds: Current Medications Medications (Trade) Dose Ordered Sig/Evaristo Route PRN Reason Start Time Stop Time Status Last Admin Dose Admin Acetaminophen (Tylenol) 650 mg PRN Q6HRS PRN PO MILD PAIN / TEMP > 100.3'F 11/25/20 18:00 01/30/21 17:54 Multi-Ingredient Ointment (Analgesic [place]) 1 addison PRN QID PRN TP MUSCLE PAIN 11/25/20 18:00 Al Hydroxide/Mg Hydroxide (Mylanta Plus Xs) 15 ml PRN AFTMEALHC PRN PO DYSPEPSIA 11/25/20 18:00 01/21/21 21:18 Magnesium Hydroxide (Milk Of Magnesia) 2,400 mg PRN QHS PRN PO CONSTIPATION 11/25/20 18:00 12/13/20 08:36 Amlodipine Besylate (Norvasc) 10 mg DAILY PO 11/26/20 09:00 01/30/21 10:49 Aspirin (Aspirin Chewable) 81 mg DAILY PO 11/26/20 09:00 01/30/21 10:50 Carvedilol (Coreg) 6.25 mg BIDWMEALS PO 11/25/20 18:30 01/30/21 16:48 Lisinopril (Prinivil) 10 mg DAILY PO 11/26/20 09:00 11/26/20 16:16 DC Quetiapine Fumarate (SEROquel) 25 mg QHS PO 11/25/20 21:00 12/23/20 17:23 DC 12/22/20 20:04 Tamsulosin HCl (Flomax) 0.4 mg DAILY PO 11/26/20 09:00 01/30/21 10:49 Amoxicillin (Amoxil) 500 mg [id number] PO 11/25/20 21:00 12/02/20 14:01 DC 12/02/20 14:15 Atorvastatin Calcium (Lipitor) 40 mg QHS PO 11/25/20 21:00 01/30/21 20:12 Folic Acid (Folic Acid) 1 mg DAILY PO 11/26/20 09:00 01/30/21 10:50 Lidocaine (Lidoderm) 1 patch DAILY TD 11/26/20 09:00 01/30/21 10:50 Multivitamins/ Calcium (Thera-M Plus) 1 tab DAILY PO 11/26/20 09:00 01/30/21 10:50 Thiamine HCl (Vitamin B-1) 100 mg BID PO 11/25/20 21:00 01/30/21 20:12 Olanzapine (ZyPREXA ZYDIS) 2.5 mg PRN Q2HR PRN PO PSYCHOSIS 11/25/20 21:15 01/30/21 17:54 Trazodone HCl (Desyrel) 50 mg PRN QHS PRN PO INSOMNIA, MAY REPEAT IN 1HR 11/25/20 21:15 01/03/21 16:48 DC 01/03/21 02:21 Mirtazapine (Remeron) 7.5 mg QHS PO 11/26/20 21:00 11/28/20 12:23 DC 11/27/20 20:00 Lactobacillus Rhamnosus (Culturelle) 1 cap BID PO 11/27/20 09:00 01/30/21 20:13 Sertraline HCl (Zoloft) 25 mg DAILY PO 11/28/20 09:00 11/30/20 09:01 DC 11/30/20 08:39 Sertraline HCl (Zoloft) 50 mg DAILY PO 12/01/20 09:00 12/03/20 11:00 DC 12/03/20 08:05 Mirtazapine (Remeron) 15 mg QHS PO 11/28/20 21:00 11/29/20 18:47 DC 11/28/20 19:38 Hydroxyzine HCl (Atarax) 25 mg PRN Q2HR PRN PO ABDOMINAL CRAMPS 11/28/20 21:45 01/30/21 17:54 Lorazepam (Ativan) 0.5 mg PRN Q4HRS PRN PO ANXIETY / AGITATION 11/28/20 21:45 11/29/20 21:45 DC Amitriptyline HCl (Elavil) 25 mg QHS PO 11/29/20 21:00 12/23/20 17:23 DC 12/22/20 20:04 Melatonin (Melatonin) 3 mg QHS PO 11/29/20 21:00 01/30/21 20:13 Sertraline HCl (Zoloft) 75 mg DAILY PO 12/04/20 09:00 01/14/21 18:05 DC 01/14/21 08:49 Divalproex Sodium (Depakote Er) 500 mg QHS PO 12/02/20 21:00 12/05/20 12:29 DC 12/04/20 20:08 Divalproex Sodium (Depakote Er) 1,000 mg QHS PO 12/05/20 21:00 01/30/21 20:13 Quetiapine Fumarate (SEROquel) 12.5 mg DAILY PO 12/17/20 09:00 12/18/20 16:46 DC 12/18/20 08:01 Quetiapine Fumarate (SEROquel) 12.5 mg [id number] PO 12/19/20 09:00 12/23/20 17:23 DC 12/23/20 13:28 Quetiapine Fumarate (SEROquel) 25 mg TID PO 12/23/20 17:30 01/08/21 16:44 DC 01/08/21 12:48 Amitriptyline HCl (Elavil) 50 mg QHS PO 12/23/20 21:00 01/30/21 20:13 Furosemide (Lasix) 80 mg 1X ONCE PO 12/30/20 16:30 12/30/20 16:31 DC 12/30/20 16:27 Trazodone HCl (Desyrel) 100 mg QHS PO 01/03/21 21:00 01/30/21 20:13 Trazodone HCl (Desyrel) 100 mg PRN QHS PRN PO INSOMNIA, 01/03/21 17:00 01/28/21 23:55 Lactic Acid (Lac-Hydrin) 1 addison BID TP 01/07/21 21:00 01/30/21 20:14 Quetiapine Fumarate (SEROquel) 37.5 mg TID PO 01/08/21 21:00 01/15/21 16:18 DC 01/15/21 14:31 Sertraline HCl (Zoloft) 100 mg DAILY PO 01/15/21 09:00 01/29/21 12:58 DC 01/29/21 07:51 Risperidone (RisperDAL) 0.25 mg 0900,1300,1700 PO 01/16/21 09:00 01/17/21 18:15 DC 01/17/21 17:49 Risperidone (RisperDAL) 0.5 mg 1X PO 01/15/21 16:30 01/17/21 18:19 DC 01/15/21 16:25 Risperidone (RisperDAL) 0.25 mg 0900,1700 PO 01/18/21 09:00 01/18/21 18:47 DC 01/18/21 17:31 Risperidone (RisperDAL) 0.5 mg 1300 PO 01/18/21 13:00 01/18/21 18:47 DC 01/18/21 13:04 Risperidone (RisperDAL) 0.5 mg 0900,1300,1700 PO 01/19/21 09:00 01/30/21 16:47 Trazodone HCl (Desyrel) 12.5 mg 0900,1300,1700 PO 01/20/21 17:00 01/21/21 18:14 DC 01/21/21 17:19 Trazodone HCl (Desyrel) 12.5 mg 1300 PO 01/22/21 13:00 01/30/21 14:01 Trazodone HCl (Desyrel) 25 mg 0900,1700 PO 01/22/21 09:00 01/30/21 16:47 Magnesium Citrate (Citroma) 296 ml 1X ONCE PO 01/28/21 18:00 01/28/21 18:02 DC 01/28/21 18:00 Fluvoxamine Maleate (Luvox) 25 mg QHS PO 01/29/21 21:00 01/31/21 21:01 01/30/21 20:12 Fluvoxamine Maleate (Luvox) 50 mg QHS PO 02/01/21 21:00 I have reviewed the current psychotropics carefully including drug interactions. Risk benefit ratio favors no change other than as noted in my dictated progress note. Diagnosis: Problems: (1) Major neurocognitive disorder (2) Impulse control disorder, unspecified (3) Anxiety disorder, unspecified (4) Dementia, vascular, with depression (5) Dementia, vascular, with delusions (6) Dementia in Alzheimer's disease with depression (7) Dementia in Alzheimer's disease with delusions (8) Dementia of the Alzheimer's type with early onset with behavioral disturbance DONA BOTELLO MD Jan 30, 2021 21:12
[2021-01-30] MEDS: traZODone 100 MG TABLET. PO PRN (21:18)
--- NOTE | 2021-01-30 23:00 | NUR ---
Karly pt has been more active. He went to bed and slept for a short time. Upon awakening he was looking for "something he lost" and was becoming intrusive and briefly combative with staff. He was placed in [address] [facility] and continued exit seeking and finding things annetta need repair and reporting them to staff. PRN trazodone was given and after 1 hour he was still actively exit seeking. PRN atarax and zydis were given and have not yet had any apparent effect. 1951 music hits playing in the hallway.
--- NOTE | 2021-01-31 00:45 | NUR ---
PRN tylenol was given at 2315 for back pain. Eventually pt laid on floor then was taken to bed and he seems to be asleep now.
[2021-01-31 05:58] VITALS: BP 106/68
[2021-01-31] MEDS: amLODIPine BESYLATE 10 MG TABLET PO SCH (08:04)
[2021-01-31] MEDS: CARVEDILOL 6.25 MG TABLET PO SCH ×2 (08:04→16:52)
[2021-01-31] MEDS: LACTOBACILLUS RHAMNOSUS GG 1 CAPSULE. PO SCH ×2 (08:05→20:08)
[2021-01-31] MEDS: risperiDONE 0.5 MG TABLET. PO SCH ×3 (08:05→16:51)
[2021-01-31] MEDS: ASPIRIN CHEWABLE 81 MG TABLET. PO SCH (08:05)
[2021-01-31] MEDS: TAMSULOSIN 0.4 MG CAP.ER.24H. PO SCH (08:05)
[2021-01-31] MEDS: THIAMINE 100 MG TABLET. PO SCH ×2 (08:05→20:08)
[2021-01-31] MEDS: FOLIC ACID 1 MG TABLET PO SCH (08:05)
[2021-01-31] MEDS: traZODone 50 MG TABLET. PO SCH ×3 (08:05→16:52)
[2021-01-31] MEDS: MULTIVITAMIN with MINERAL TABLET. PO SCH (08:05)
[2021-01-31] MEDS: LIDOCAINE (700MG/PATCH) PATCH. TD SCH (08:06)
[2021-01-31] MEDS: hydrOXYzine HCL 25 MG TABLET PO PRN (09:52)
[2021-01-31] MEDS: AMMONIUM LACTATE 12% TOPICAL LOTION 226GM BOTTLE. TP SCH ×2 (09:52→20:09)
--- NOTE | 2021-01-31 10:52 | TX PLAN ---
Interdisciplinary Tx Plan Admission Information Nov 25, 2020 at 15:25 Legal Status (on Admission): Voluntary, Court Appointed Guardian, Court Appointed Conservat DPOA/Guardian Name: Maxwell Martinez- guardian Contact Verified Code Status: Full Code Allergies: Coded Allergies: No Known Drug Allergies (Unverified , 11/25/20) Estimated Length of Stay: 14 Diagnoses Primary Diagnosis: Major neurocognitive d/o, vascular, alzheimers with delusions, depresion, BD; Anxiety d/o unspecified; impulse control d/o Reasons for Admission: Aggressive, Delusions, Agitated, Alcohol Abuse, Sig. Change Sleep, Anxiety/Panic, Hallucinations, Combative, Confusion/Disoriented, Poor impulse control Problem in Patient's Words: Per Scottie, " Love and caring about her and my family." Per guardian, unsafe to live at home alone with level of confusion and memory impairment. Additional Admission Comments: Per intake record, hallucinating, delusional, aggressive during [facility] care, confused, restless, nonsensical speech, anxious, insomnia, poor safety, pulled out IV, uncooperative, agitated, and yelling out. Problems Active Problems: Confused Delsuional Hallucinating Wandering, intrusive, restless Poor sleep Inactive Problems: Adequate meal intake Compliant with meds Pt Strengths/Limitations Ability for [place]: Poor Cognitive Functioning/Ability: Poor Communication Skills/Ability: Fair Financial Resources: Fair Insight/Judgement: Poor Intellectual Ability: Fair Physical Health: Fair Social Skills: Fair Stability in Family: Poor Verbal Skills: Fair Discharge Criteria Discharge Criteria: Adequate arrangements @DC, Improved behavior, Improved mood/thought Preliminary Discharge Plan Preliminary DC Plan: Placement Needed Special Precautions Special Precautions: Agitation/Assault Fall Risk: High Initial D/C Plan Scottie will need placement. [place] is in the process of determining if a medicaid applincation will need to be filed to pay for [facility] care. Identified Discharge Needs: Scottie will need placement due to memory impairment. Currently Utilized Resources Currently Utilized Resources/P: PCP Referrals Community Resources: Placement referral PCP Psychiatry if available Identified Problems/Hx/Goals Objectives/Short-Term Goals Short Term Goals: Control abnormal behavior, Dec. Aggression, Dec. Anxiety/Panic, Dec. Hallucination/Delus, Dec. Outbursts, Medication Stabilization, Monitor Med Effects Short Term Goals in Patient's: Melvin Rubin, "I hope to conquer even better and us get along." Interventions/Frequency Staff Interventions/Frequency&: Nursing to provide routine safety checks, medication administration, and adl support. Psychiatry thre times weekly. SW visits twice weekly. Recreational and SW groups as Scottie will participate. 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 Social: Scottie enjoys basketball, swimming, and country music. Education: Scottie reported graduating high school. Community Follow-up PCP Psychiatry if available Placement referral Community Provider/Family Inpu: Treatment team meeting was held on 11/28/20. entry level civil engineer of treatment plan was enterred on 11/29/20. Maxwell, guardian, declined to be involed in team meetings but does want to know any recommendations concerning Scottie. 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 Pt continues to wander the unit and exit-seeking re: needing to go to work. Pt did have some inappropriate behavior (placing his hand on a female peer's thigh); however, was able to be redirected. Pt has had multiple referrals sent out and denied due to concerns of pt aggression. Pt has attended five groups this week with moderate participation. SW will continue to keep pt guardian up to date and send out referrals all over the [facility]. BA MUÑIZ Jan 31, 2021 10:52
[2021-01-31 16:16] VITALS: BP 116/73
--- NOTE | 2021-01-31 17:29 | NUR ---
Patient has been calm, compliant, wandering, and pleasantly confused throughout most of this shift. He has repeatedly stated he needs to leave, exit seeking and door checking. he cntinues in the delusion that he is at work. Patient more agitated just before dinner and more exit seeking, he was verbally redirected. Will continue to monitor and report to oncoming staff.
[2021-01-31] MEDS: MELATONIN 3 MG TABLET PO SCH (20:07)
[2021-01-31] MEDS: ATORVASTATIN CALCIUM 20 MG TABLET PO SCH (20:07)
[2021-01-31] MEDS: traZODone 100 MG TABLET. PO SCH (20:07)
[2021-01-31] MEDS: DIVALPROEX ER 500 MG TAB.ER.24H PO SCH (20:08)
[2021-01-31] MEDS: ACETAMINOPHEN 325 MG TABLET PO PRN (20:08)
[2021-01-31] MEDS: AMITRIPTYLINE HCL 50 MG TABLET PO SCH (20:08)
--- NOTE | 2021-01-31 20:44 | PDOC ---
Exam Note: Gus Note: This note is a late entry for 01/30/2021 covers elements not covered in my initial note. Subjective: The patient was reviewed in the morning of 01/30/2021 for a treatment team meeting with Mell Larios, Dolores Contreras and Denise (professor of social work), Margot, activity therapy and Cm OVIEDO, discussed and reviewed the chart. The patient slept 6-3/4 hours previous night. Overall he has attended 5 groups. He remains confused, believes he has to go t work. He gets more agitated in the evening, from a female peer and then he seems to calm down. He was also seen individually in the evening with the nursing staff. Review of Systems: No CV, , pulmonary, eye, ENT system symptoms on review. Reliability poor. Mental Status Exam: The patient is oriented to himself. Insight and judgment, recent and remote memory, attention and concentration, fund of knowledge is poor consistent with his diagnosis. Laboratory Data: Reviewed. Impression: Major neurocognitive disorder Alzheimer vascular with delusion, depression, behavioral disturbance. Anxiety disorder unspecified. Impulse control disorder unspecified. Plan: No change from initial note. Assessment: Vital Signs/I&O: Vital Signs Date Time Temp Pulse Resp B/P (MAP) Pulse Ox O2 Delivery O2 Flow Rate FiO2 01/31/21 16:52 87 116/73 01/31/21 16:16 97.4 16 97 01/31/21 05:58 Room Air I & O 01/30/21 01/30/21 01/31/21 15:00 23:00 07:00 Intake Total 240 ml 480 ml Balance 240 ml 480 ml Current Medications: Meds: Current Medications Medications (Trade) Dose Ordered Sig/Evaristo Route PRN Reason Start Time Stop Time Status Last Admin Dose Admin Acetaminophen (Tylenol) 650 mg PRN Q6HRS PRN PO MILD PAIN / TEMP > 100.3'F 11/25/20 18:00 01/31/21 20:08 Multi-Ingredient Ointment (Analgesic [place]) 1 addison PRN QID PRN TP MUSCLE PAIN 11/25/20 18:00 Al Hydroxide/Mg Hydroxide (Mylanta Plus Xs) 15 ml PRN AFTMEALHC PRN PO DYSPEPSIA 11/25/20 18:00 01/21/21 21:18 Magnesium Hydroxide (Milk Of Magnesia) 2,400 mg PRN QHS PRN PO CONSTIPATION 11/25/20 18:00 12/13/20 08:36 Amlodipine Besylate (Norvasc) 10 mg DAILY PO 11/26/20 09:00 01/31/21 08:04 Aspirin (Aspirin Chewable) 81 mg DAILY PO 11/26/20 09:00 01/31/21 08:05 Carvedilol (Coreg) 6.25 mg BIDWMEALS PO 11/25/20 18:30 01/31/21 16:52 Lisinopril (Prinivil) 10 mg DAILY PO 11/26/20 09:00 11/26/20 16:16 DC Quetiapine Fumarate (SEROquel) 25 mg QHS PO 11/25/20 21:00 12/23/20 17:23 DC 12/22/20 20:04 Tamsulosin HCl (Flomax) 0.4 mg DAILY PO 11/26/20 09:00 01/31/21 08:05 Amoxicillin (Amoxil) 500 mg [id number] PO 11/25/20 21:00 12/02/20 14:01 DC 12/02/20 14:15 Atorvastatin Calcium (Lipitor) 40 mg QHS PO 11/25/20 21:00 01/31/21 20:07 Folic Acid (Folic Acid) 1 mg DAILY PO 11/26/20 09:00 01/31/21 08:05 Lidocaine (Lidoderm) 1 patch DAILY TD 11/26/20 09:00 01/31/21 08:06 Multivitamins/ Calcium (Thera-M Plus) 1 tab DAILY PO 11/26/20 09:00 01/31/21 08:05 Thiamine HCl (Vitamin B-1) 100 mg BID PO 11/25/20 21:00 01/31/21 20:08 Olanzapine (ZyPREXA ZYDIS) 2.5 mg PRN Q2HR PRN PO PSYCHOSIS 11/25/20 21:15 01/30/21 22:11 Trazodone HCl (Desyrel) 50 mg PRN QHS PRN PO INSOMNIA, MAY REPEAT IN 1HR 11/25/20 21:15 01/03/21 16:48 DC 01/03/21 02:21 Mirtazapine (Remeron) 7.5 mg QHS PO 11/26/20 21:00 11/28/20 12:23 DC 11/27/20 20:00 Lactobacillus Rhamnosus (Culturelle) 1 cap BID PO 11/27/20 09:00 01/31/21 20:08 Sertraline HCl (Zoloft) 25 mg DAILY PO 11/28/20 09:00 11/30/20 09:01 DC 11/30/20 08:39 Sertraline HCl (Zoloft) 50 mg DAILY PO 12/01/20 09:00 12/03/20 11:00 DC 12/03/20 08:05 Mirtazapine (Remeron) 15 mg QHS PO 11/28/20 21:00 11/29/20 18:47 DC 11/28/20 19:38 Hydroxyzine HCl (Atarax) 25 mg PRN Q2HR PRN PO ABDOMINAL CRAMPS 11/28/20 21:45 01/31/21 09:52 Lorazepam (Ativan) 0.5 mg PRN Q4HRS PRN PO ANXIETY / AGITATION 11/28/20 21:45 11/29/20 21:45 DC Amitriptyline HCl (Elavil) 25 mg QHS PO 11/29/20 21:00 12/23/20 17:23 DC 12/22/20 20:04 Melatonin (Melatonin) 3 mg QHS PO 11/29/20 21:00 01/31/21 20:07 Sertraline HCl (Zoloft) 75 mg DAILY PO 12/04/20 09:00 01/14/21 18:05 DC 01/14/21 08:49 Divalproex Sodium (Depakote Er) 500 mg QHS PO 12/02/20 21:00 12/05/20 12:29 DC 12/04/20 20:08 Divalproex Sodium (Depakote Er) 1,000 mg QHS PO 12/05/20 21:00 01/31/21 20:08 Quetiapine Fumarate (SEROquel) 12.5 mg DAILY PO 12/17/20 09:00 12/18/20 16:46 DC 12/18/20 08:01 Quetiapine Fumarate (SEROquel) 12.5 mg [id number] PO 12/19/20 09:00 12/23/20 17:23 DC 12/23/20 13:28 Quetiapine Fumarate (SEROquel) 25 mg TID PO 12/23/20 17:30 01/08/21 16:44 DC 01/08/21 12:48 Amitriptyline HCl (Elavil) 50 mg QHS PO 12/23/20 21:00 01/31/21 20:08 Furosemide (Lasix) 80 mg 1X ONCE PO 12/30/20 16:30 12/30/20 16:31 DC 12/30/20 16:27 Trazodone HCl (Desyrel) 100 mg QHS PO 01/03/21 21:00 01/31/21 20:07 Trazodone HCl (Desyrel) 100 mg PRN QHS PRN PO INSOMNIA, 01/03/21 17:00 01/30/21 21:18 Lactic Acid (Lac-Hydrin) 1 addison BID TP 01/07/21 21:00 01/31/21 20:09 Quetiapine Fumarate (SEROquel) 37.5 mg TID PO 01/08/21 21:00 01/15/21 16:18 DC 01/15/21 14:31 Sertraline HCl (Zoloft) 100 mg DAILY PO 01/15/21 09:00 01/29/21 12:58 DC 01/29/21 07:51 Risperidone (RisperDAL) 0.25 mg 0900,1300,1700 PO 01/16/21 09:00 01/17/21 18:15 DC 01/17/21 17:49 Risperidone (RisperDAL) 0.5 mg 1X PO 01/15/21 16:30 01/17/21 18:19 DC 01/15/21 16:25 Risperidone (RisperDAL) 0.25 mg 0900,1700 PO 01/18/21 09:00 01/18/21 18:47 DC 01/18/21 17:31 Risperidone (RisperDAL) 0.5 mg 1300 PO 01/18/21 13:00 01/18/21 18:47 DC 01/18/21 13:04 Risperidone (RisperDAL) 0.5 mg 0900,1300,1700 PO 01/19/21 09:00 01/31/21 16:51 Trazodone HCl (Desyrel) 12.5 mg 0900,1300,1700 PO 01/20/21 17:00 01/21/21 18:14 DC 01/21/21 17:19 Trazodone HCl (Desyrel) 12.5 mg 1300 PO 01/22/21 13:00 01/31/21 13:11 Trazodone HCl (Desyrel) 25 mg 0900,1700 PO 01/22/21 09:00 01/31/21 16:52 Magnesium Citrate (Citroma) 296 ml 1X ONCE PO 01/28/21 18:00 01/28/21 18:02 DC 01/28/21 18:00 Fluvoxamine Maleate (Luvox) 25 mg QHS PO 01/29/21 21:00 01/31/21 21:01 01/31/21 20:07 Fluvoxamine Maleate (Luvox) 50 mg QHS PO 02/01/21 21:00 I have reviewed the current psychotropics carefully including drug interactions. Risk benefit ratio favors no change other than as noted in my dictated progress note. Diagnosis: Problems: (1) Major neurocognitive disorder (2) Impulse control disorder, unspecified (3) Anxiety disorder, unspecified (4) Dementia, vascular, with depression (5) Dementia, vascular, with delusions (6) Dementia in Alzheimer's disease with depression (7) Dementia in Alzheimer's disease with delusions (8) Dementia of the Alzheimer's type with early onset with behavioral disturbance DONA BOTELLO MD Jan 31, 2021 20:44
--- NOTE | 2021-01-31 20:45 | PDOC ---
Exam Note: Gus Note: Please also refer to the separate dictated note~for this date of service dictated separately.~Patient seen individually. Discussed the patient with Nursing staff reviewed the chart.~Reviewed interim history and current functioning. Reviewed vital signs,~Labs/ Radiology~and current medications noted below. Continue current treatment with the changes noted in the dictated addendum note Assessment: Vital Signs/I&O: Vital Signs Date Time Temp Pulse Resp B/P (MAP) Pulse Ox O2 Delivery O2 Flow Rate FiO2 01/31/21 16:52 87 116/73 01/31/21 16:16 97.4 16 97 01/31/21 05:58 Room Air I & O 01/30/21 01/30/21 01/31/21 15:00 23:00 07:00 Intake Total 240 ml 480 ml Balance 240 ml 480 ml Current Medications: Meds: Current Medications Medications (Trade) Dose Ordered Sig/Evaristo Route PRN Reason Start Time Stop Time Status Last Admin Dose Admin Acetaminophen (Tylenol) 650 mg PRN Q6HRS PRN PO MILD PAIN / TEMP > 100.3'F 11/25/20 18:00 01/31/21 20:08 Multi-Ingredient Ointment (Analgesic [place]) 1 addison PRN QID PRN TP MUSCLE PAIN 11/25/20 18:00 Al Hydroxide/Mg Hydroxide (Mylanta Plus Xs) 15 ml PRN AFTMEALHC PRN PO DYSPEPSIA 11/25/20 18:00 01/21/21 21:18 Magnesium Hydroxide (Milk Of Magnesia) 2,400 mg PRN QHS PRN PO CONSTIPATION 11/25/20 18:00 12/13/20 08:36 Amlodipine Besylate (Norvasc) 10 mg DAILY PO 11/26/20 09:00 01/31/21 08:04 Aspirin (Aspirin Chewable) 81 mg DAILY PO 11/26/20 09:00 01/31/21 08:05 Carvedilol (Coreg) 6.25 mg BIDWMEALS PO 11/25/20 18:30 01/31/21 16:52 Lisinopril (Prinivil) 10 mg DAILY PO 11/26/20 09:00 11/26/20 16:16 DC Quetiapine Fumarate (SEROquel) 25 mg QHS PO 11/25/20 21:00 12/23/20 17:23 DC 12/22/20 20:04 Tamsulosin HCl (Flomax) 0.4 mg DAILY PO 11/26/20 09:00 01/31/21 08:05 Amoxicillin (Amoxil) 500 mg [id number] PO 11/25/20 21:00 12/02/20 14:01 DC 12/02/20 14:15 Atorvastatin Calcium (Lipitor) 40 mg QHS PO 11/25/20 21:00 01/31/21 20:07 Folic Acid (Folic Acid) 1 mg DAILY PO 11/26/20 09:00 01/31/21 08:05 Lidocaine (Lidoderm) 1 patch DAILY TD 11/26/20 09:00 01/31/21 08:06 Multivitamins/ Calcium (Thera-M Plus) 1 tab DAILY PO 11/26/20 09:00 01/31/21 08:05 Thiamine HCl (Vitamin B-1) 100 mg BID PO 11/25/20 21:00 01/31/21 20:08 Olanzapine (ZyPREXA ZYDIS) 2.5 mg PRN Q2HR PRN PO PSYCHOSIS 11/25/20 21:15 01/30/21 22:11 Trazodone HCl (Desyrel) 50 mg PRN QHS PRN PO INSOMNIA, MAY REPEAT IN 1HR 11/25/20 21:15 01/03/21 16:48 DC 01/03/21 02:21 Mirtazapine (Remeron) 7.5 mg QHS PO 11/26/20 21:00 11/28/20 12:23 DC 11/27/20 20:00 Lactobacillus Rhamnosus (Culturelle) 1 cap BID PO 11/27/20 09:00 01/31/21 20:08 Sertraline HCl (Zoloft) 25 mg DAILY PO 11/28/20 09:00 11/30/20 09:01 DC 11/30/20 08:39 Sertraline HCl (Zoloft) 50 mg DAILY PO 12/01/20 09:00 12/03/20 11:00 DC 12/03/20 08:05 Mirtazapine (Remeron) 15 mg QHS PO 11/28/20 21:00 11/29/20 18:47 DC 11/28/20 19:38 Hydroxyzine HCl (Atarax) 25 mg PRN Q2HR PRN PO ABDOMINAL CRAMPS 11/28/20 21:45 01/31/21 09:52 Lorazepam (Ativan) 0.5 mg PRN Q4HRS PRN PO ANXIETY / AGITATION 11/28/20 21:45 11/29/20 21:45 DC Amitriptyline HCl (Elavil) 25 mg QHS PO 11/29/20 21:00 12/23/20 17:23 DC 12/22/20 20:04 Melatonin (Melatonin) 3 mg QHS PO 11/29/20 21:00 01/31/21 20:07 Sertraline HCl (Zoloft) 75 mg DAILY PO 12/04/20 09:00 01/14/21 18:05 DC 01/14/21 08:49 Divalproex Sodium (Depakote Er) 500 mg QHS PO 12/02/20 21:00 12/05/20 12:29 DC 12/04/20 20:08 Divalproex Sodium (Depakote Er) 1,000 mg QHS PO 12/05/20 21:00 01/31/21 20:08 Quetiapine Fumarate (SEROquel) 12.5 mg DAILY PO 12/17/20 09:00 12/18/20 16:46 DC 12/18/20 08:01 Quetiapine Fumarate (SEROquel) 12.5 mg [id number] PO 12/19/20 09:00 12/23/20 17:23 DC 12/23/20 13:28 Quetiapine Fumarate (SEROquel) 25 mg TID PO 12/23/20 17:30 01/08/21 16:44 DC 01/08/21 12:48 Amitriptyline HCl (Elavil) 50 mg QHS PO 12/23/20 21:00 01/31/21 20:08 Furosemide (Lasix) 80 mg 1X ONCE PO 12/30/20 16:30 12/30/20 16:31 DC 12/30/20 16:27 Trazodone HCl (Desyrel) 100 mg QHS PO 01/03/21 21:00 01/31/21 20:07 Trazodone HCl (Desyrel) 100 mg PRN QHS PRN PO INSOMNIA, 01/03/21 17:00 01/30/21 21:18 Lactic Acid (Lac-Hydrin) 1 addison BID TP 01/07/21 21:00 01/31/21 20:09 Quetiapine Fumarate (SEROquel) 37.5 mg TID PO 01/08/21 21:00 01/15/21 16:18 DC 01/15/21 14:31 Sertraline HCl (Zoloft) 100 mg DAILY PO 01/15/21 09:00 01/29/21 12:58 DC 01/29/21 07:51 Risperidone (RisperDAL) 0.25 mg 0900,1300,1700 PO 01/16/21 09:00 01/17/21 18:15 DC 01/17/21 17:49 Risperidone (RisperDAL) 0.5 mg 1X PO 01/15/21 16:30 01/17/21 18:19 DC 01/15/21 16:25 Risperidone (RisperDAL) 0.25 mg 0900,1700 PO 01/18/21 09:00 01/18/21 18:47 DC 01/18/21 17:31 Risperidone (RisperDAL) 0.5 mg 1300 PO 01/18/21 13:00 01/18/21 18:47 DC 01/18/21 13:04 Risperidone (RisperDAL) 0.5 mg 0900,1300,1700 PO 01/19/21 09:00 01/31/21 16:51 Trazodone HCl (Desyrel) 12.5 mg 0900,1300,1700 PO 01/20/21 17:00 01/21/21 18:14 DC 01/21/21 17:19 Trazodone HCl (Desyrel) 12.5 mg 1300 PO 01/22/21 13:00 01/31/21 13:11 Trazodone HCl (Desyrel) 25 mg 0900,1700 PO 01/22/21 09:00 01/31/21 16:52 Magnesium Citrate (Citroma) 296 ml 1X ONCE PO 01/28/21 18:00 01/28/21 18:02 DC 01/28/21 18:00 Fluvoxamine Maleate (Luvox) 25 mg QHS PO 01/29/21 21:00 01/31/21 21:01 01/31/21 20:07 Fluvoxamine Maleate (Luvox) 50 mg QHS PO 02/01/21 21:00 I have reviewed the current psychotropics carefully including drug interactions. Risk benefit ratio favors no change other than as noted in my dictated progress note. Diagnosis: Problems: (1) Major neurocognitive disorder (2) Impulse control disorder, unspecified (3) Anxiety disorder, unspecified (4) Dementia, vascular, with depression (5) Dementia, vascular, with delusions (6) Dementia in Alzheimer's disease with depression (7) Dementia in Alzheimer's disease with delusions (8) Dementia of the Alzheimer's type with early onset with behavioral disturbance DONA BOTELLO MD Jan 31, 2021 20:45
--- NOTE | 2021-01-31 21:48 | HP ---
ADMIT DATE: 11/25/2020 IDENTIFYING DATA: The patient is an 80-year-old male referred to us from [facility] where he presented from home on account of increasing confusion. He had been living at home, being taken care of by a female raise driller who had since . The patient had become more confused, wandering out of the house, intoxicated. He was sent to [facility], medically stabilized, then referred to us and admitted to us on 11/25/2020 of this year. CHIEF COMPLAINT: "I am okay." HISTORY OF PRESENT ILLNESS: As noted, the patient was quite confused and getting intoxicated at home, living alone. Behaviors deemed dangerous, resulting in the referral to [facility]. Since arriving here on the first, he has been gradually more stable, less anxious. Though it was the evening time with , confusion does increase. Nevertheless, he has been quite manageable. No clear symptoms of bipolar disorder. PAST PSYCHIATRIC HISTORY: Positive for alcohol abuse, progressive dementia. PAST MEDICAL HISTORY: Positive for hypertension, hyperlipidemia, BPH, chronic atrial fibrillation, pacemaker in place, hepatic cysts, bilateral total knee replacement, left hip replacement. He did have a UTI on admission, which probably accounted for some of his agitation and that has since been treated. I have been asked to dictate this evaluation again today to update the admission evaluation initially dictated on 11/25/2020 of this year. ALLERGIES: Negative. CODE STATUS: Full code. DIET: Mechanical soft cardiac as he has no teeth, no dentures. Ambulates up ad lulú. REVIEW OF SYSTEMS: No CV, , pulmonary, eye system symptoms on review. MENTAL STATUS EXAMINATION: The patient is oriented to himself. Insight, judgment, recent and remote memory, attention, concentration, fund of knowledge poor, consistent with his diagnosis. IMPRESSION: Major neurocognitive disorder, Alzheimer, vascular with delusion, depression, behavioral disturbance; anxiety disorder, unspecified; impulse control disorder, unspecified. Rest unchanged. PLAN: Continue the patient's hospitalization for further stabilization, though he is doing much better than at admission initially. He is currently on Risperdal 0.5 mg 3 times a day, Zyprexa p.r.n., trazodone 100 mg at bedtime p.r.n., may repeat x 2 for insomnia, Luvox 50 mg a day for his obsessive thought processes, Atarax p.r.n., amitriptyline 50 mg at bedtime for insomnia and he seems to be sleeping well on this melatonin 3 mg at bedtime, Depakote ER 1000 mg at bedtime, valproic acid level therapeutic at 53, trazodone 25 mg 0900, 1700 and 12.5 mg at 1300. We will continue and adjust these, but overall, the patient is much improved and needs placement at nursing facility. MAN Leena BOTELLO MD DR: CHRISTINA/roxy JOB#: [id number] / [id number]
--- NOTE | 2021-01-31 22:09 | NUR ---
This evening pt was quietly walking on unit and was pleasant and cooperative. He went into the day room and he decided one of his peers in a WC was his and started pushing her chair " because we have to get home''. When trying to reidirect and separate he became aggressive and swung and yelled at staff. He was placed in [facility] where he calmed after a few minutes. He took meds whole and was given PRN Tylenol. After another 30 mins he was taken to his room and has been sleeping.
[2021-02-01 05:59] VITALS: BP 126/76
--- NOTE | 2021-02-01 07:59 | PDOC ---
Exam Note: Gus Note: This note is a late entry for 01/31/2021 covers elements not covered in my initial note. Subjective: The patient was seen individually in the evening of 01/31/2021 with Cm OVIEDO, discussed and reviewed the chart. The patient slept 4 hours previous night. He gets more confused in the evening, anxious, restless, looking to go to his job. He received a p.r.n. 10.20 in the morning because he was exit seeking, then redirected. Review of Systems: No CV, , pulmonary, eye, ENT system symptoms on review. Mental Status Exam: The patient is oriented to himself. Insight and judgment, recent and remote memory, attention and concentration, fund of knowledge is poor consistent with his diagnosis. Laboratory Data: Reviewed. Impression: Major neurocognitive disorder Alzheimer vascular with delusion, depression, behavioral disturbance. Anxiety disorder unspecified. Impulse control disorder unspecified. Plan: No change from initial note. Overall the patient is better, more redirectable and some of the wandering is consistent with his dementia. I have been requested to re-dictate admission history, which I will complete today and its dictation# [id number]. Assessment: Vital Signs/I&O: Vital Signs Date Time Temp Pulse Resp B/P (MAP) Pulse Ox O2 Delivery O2 Flow Rate FiO2 02/01/21 05:59 97.2 64 18 126/76 (93) 98 Room Air I & O 01/31/21 01/31/21 02/01/21 15:00 23:00 07:00 Intake Total 840 ml 600 ml Balance 840 ml 600 ml Current Medications: Meds: Current Medications Medications (Trade) Dose Ordered Sig/Evaristo Route PRN Reason Start Time Stop Time Status Last Admin Dose Admin Acetaminophen (Tylenol) 650 mg PRN Q6HRS PRN PO MILD PAIN / TEMP > 100.3'F 11/25/20 18:00 01/31/21 20:08 Multi-Ingredient Ointment (Analgesic [place]) 1 addison PRN QID PRN TP MUSCLE PAIN 11/25/20 18:00 Al Hydroxide/Mg Hydroxide (Mylanta Plus Xs) 15 ml PRN AFTMEALHC PRN PO DYSPEPSIA 11/25/20 18:00 01/21/21 21:18 Magnesium Hydroxide (Milk Of Magnesia) 2,400 mg PRN QHS PRN PO CONSTIPATION 11/25/20 18:00 12/13/20 08:36 Amlodipine Besylate (Norvasc) 10 mg DAILY PO 11/26/20 09:00 01/31/21 08:04 Aspirin (Aspirin Chewable) 81 mg DAILY PO 11/26/20 09:00 01/31/21 08:05 Carvedilol (Coreg) 6.25 mg BIDWMEALS PO 11/25/20 18:30 01/31/21 16:52 Lisinopril (Prinivil) 10 mg DAILY PO 11/26/20 09:00 11/26/20 16:16 DC Quetiapine Fumarate (SEROquel) 25 mg QHS PO 11/25/20 21:00 12/23/20 17:23 DC 12/22/20 20:04 Tamsulosin HCl (Flomax) 0.4 mg DAILY PO 11/26/20 09:00 01/31/21 08:05 Amoxicillin (Amoxil) 500 mg [id number] PO 11/25/20 21:00 12/02/20 14:01 DC 12/02/20 14:15 Atorvastatin Calcium (Lipitor) 40 mg QHS PO 11/25/20 21:00 01/31/21 20:07 Folic Acid (Folic Acid) 1 mg DAILY PO 11/26/20 09:00 01/31/21 08:05 Lidocaine (Lidoderm) 1 patch DAILY TD 11/26/20 09:00 01/31/21 08:06 Multivitamins/ Calcium (Thera-M Plus) 1 tab DAILY PO 11/26/20 09:00 01/31/21 08:05 Thiamine HCl (Vitamin B-1) 100 mg BID PO 11/25/20 21:00 01/31/21 20:08 Olanzapine (ZyPREXA ZYDIS) 2.5 mg PRN Q2HR PRN PO PSYCHOSIS 11/25/20 21:15 01/30/21 22:11 Trazodone HCl (Desyrel) 50 mg PRN QHS PRN PO INSOMNIA, MAY REPEAT IN 1HR 11/25/20 21:15 01/03/21 16:48 DC 01/03/21 02:21 Mirtazapine (Remeron) 7.5 mg QHS PO 11/26/20 21:00 11/28/20 12:23 DC 11/27/20 20:00 Lactobacillus Rhamnosus (Culturelle) 1 cap BID PO 11/27/20 09:00 01/31/21 20:08 Sertraline HCl (Zoloft) 25 mg DAILY PO 11/28/20 09:00 11/30/20 09:01 DC 11/30/20 08:39 Sertraline HCl (Zoloft) 50 mg DAILY PO 12/01/20 09:00 12/03/20 11:00 DC 12/03/20 08:05 Mirtazapine (Remeron) 15 mg QHS PO 11/28/20 21:00 11/29/20 18:47 DC 11/28/20 19:38 Hydroxyzine HCl (Atarax) 25 mg PRN Q2HR PRN PO ABDOMINAL CRAMPS 11/28/20 21:45 01/31/21 09:52 Lorazepam (Ativan) 0.5 mg PRN Q4HRS PRN PO ANXIETY / AGITATION 11/28/20 21:45 11/29/20 21:45 DC Amitriptyline HCl (Elavil) 25 mg QHS PO 11/29/20 21:00 12/23/20 17:23 DC 12/22/20 20:04 Melatonin (Melatonin) 3 mg QHS PO 11/29/20 21:00 01/31/21 20:07 Sertraline HCl (Zoloft) 75 mg DAILY PO 12/04/20 09:00 01/14/21 18:05 DC 01/14/21 08:49 Divalproex Sodium (Depakote Er) 500 mg QHS PO 12/02/20 21:00 12/05/20 12:29 DC 12/04/20 20:08 Divalproex Sodium (Depakote Er) 1,000 mg QHS PO 12/05/20 21:00 01/31/21 20:08 Quetiapine Fumarate (SEROquel) 12.5 mg DAILY PO 12/17/20 09:00 12/18/20 16:46 DC 12/18/20 08:01 Quetiapine Fumarate (SEROquel) 12.5 mg [id number] PO 12/19/20 09:00 12/23/20 17:23 DC 12/23/20 13:28 Quetiapine Fumarate (SEROquel) 25 mg TID PO 12/23/20 17:30 01/08/21 16:44 DC 01/08/21 12:48 Amitriptyline HCl (Elavil) 50 mg QHS PO 12/23/20 21:00 01/31/21 20:08 Furosemide (Lasix) 80 mg 1X ONCE PO 12/30/20 16:30 12/30/20 16:31 DC 12/30/20 16:27 Trazodone HCl (Desyrel) 100 mg QHS PO 01/03/21 21:00 01/31/21 20:07 Trazodone HCl (Desyrel) 100 mg PRN QHS PRN PO INSOMNIA, 01/03/21 17:00 01/30/21 21:18 Lactic Acid (Lac-Hydrin) 1 addison BID TP 01/07/21 21:00 01/31/21 20:09 Quetiapine Fumarate (SEROquel) 37.5 mg TID PO 01/08/21 21:00 01/15/21 16:18 DC 01/15/21 14:31 Sertraline HCl (Zoloft) 100 mg DAILY PO 01/15/21 09:00 01/29/21 12:58 DC 01/29/21 07:51 Risperidone (RisperDAL) 0.25 mg 0900,1300,1700 PO 01/16/21 09:00 01/17/21 18:15 DC 01/17/21 17:49 Risperidone (RisperDAL) 0.5 mg 1X PO 01/15/21 16:30 01/17/21 18:19 DC 01/15/21 16:25 Risperidone (RisperDAL) 0.25 mg 0900,1700 PO 01/18/21 09:00 01/18/21 18:47 DC 01/18/21 17:31 Risperidone (RisperDAL) 0.5 mg 1300 PO 01/18/21 13:00 01/18/21 18:47 DC 01/18/21 13:04 Risperidone (RisperDAL) 0.5 mg 0900,1300,1700 PO 01/19/21 09:00 01/31/21 16:51 Trazodone HCl (Desyrel) 12.5 mg 0900,1300,1700 PO 01/20/21 17:00 01/21/21 18:14 DC 01/21/21 17:19 Trazodone HCl (Desyrel) 12.5 mg 1300 PO 01/22/21 13:00 01/31/21 13:11 Trazodone HCl (Desyrel) 25 mg 0900,1700 PO 01/22/21 09:00 01/31/21 16:52 Magnesium Citrate (Citroma) 296 ml 1X ONCE PO 01/28/21 18:00 01/28/21 18:02 DC 01/28/21 18:00 Fluvoxamine Maleate (Luvox) 25 mg QHS PO 01/29/21 21:00 01/31/21 21:01 DC 01/31/21 20:07 Fluvoxamine Maleate (Luvox) 50 mg QHS PO 02/01/21 21:00 I have reviewed the current psychotropics carefully including drug interactions. Risk benefit ratio favors no change other than as noted in my dictated progress note. Diagnosis: Problems: (1) Major neurocognitive disorder (2) Impulse control disorder, unspecified (3) Anxiety disorder, unspecified (4) Dementia, vascular, with depression (5) Dementia, vascular, with delusions (6) Dementia in Alzheimer's disease with depression (7) Dementia in Alzheimer's disease with delusions (8) Dementia of the Alzheimer's type with early onset with behavioral disturbance DONA BOTELLO MD Feb 01, 2021 07:59
[2021-02-01] MEDS: amLODIPine BESYLATE 10 MG TABLET PO SCH (08:33)
[2021-02-01] MEDS: TAMSULOSIN 0.4 MG CAP.ER.24H. PO SCH (08:34)
[2021-02-01] MEDS: LACTOBACILLUS RHAMNOSUS GG 1 CAPSULE. PO SCH ×2 (08:34→20:20)
[2021-02-01] MEDS: MULTIVITAMIN with MINERAL TABLET. PO SCH (08:34)
[2021-02-01] MEDS: THIAMINE 100 MG TABLET. PO SCH ×2 (08:34→20:20)
[2021-02-01] MEDS: risperiDONE 0.5 MG TABLET. PO SCH ×3 (08:34→17:08)
[2021-02-01] MEDS: ASPIRIN CHEWABLE 81 MG TABLET. PO SCH (08:34)
[2021-02-01] MEDS: FOLIC ACID 1 MG TABLET PO SCH (08:34)
[2021-02-01] MEDS: traZODone 50 MG TABLET. PO SCH ×3 (08:34→17:08)
[2021-02-01] MEDS: CARVEDILOL 6.25 MG TABLET PO SCH ×2 (08:35→17:42)
[2021-02-01] MEDS: LIDOCAINE (700MG/PATCH) PATCH. TD SCH (08:35)
[2021-02-01] MEDS: AMMONIUM LACTATE 12% TOPICAL LOTION 226GM BOTTLE. TP SCH ×2 (09:00→20:23)
--- NOTE | 2021-02-01 17:01 | NUR ---
[facility] Social Work Discharge Planning Form Patient Name NAYELY DAY Admit Date: 25 November 2020 DISCHARGE PLAN Discharge Destination: Pt to discharge to [facility] Assessment: Facility to submit request for PASSR within 30 days of admission. Level II Assessment: N/A Transportation: [facility] to pick pt up around 10:00AM. Special Instructions/Notes: Please fax discharge orders, medication list and discharge summary to the fax number listed below. DISCHARGE TO FACILITY Facility: [facility] Address: [address] [place] [address]; [place] [address] Contact Name: Aaliyah Smith, Admissions: Contact Name: Please ask for nurse caring for pt upon admission. PCP: Will follow facility physician and psychiatrist
--- NOTE | 2021-02-01 18:30 | NUR ---
Patient has been calm, compliant, wandering, and pleasantly confused throughout most of this shift. He has repeatedly stated he needs to leave and get to work. Patient has been exit seeking at times. Will continue to monitor and report to oncoming staff.
[2021-02-01] MEDS: traZODone 100 MG TABLET. PO SCH (20:19)
[2021-02-01] MEDS: ATORVASTATIN CALCIUM 20 MG TABLET PO SCH (20:19)
[2021-02-01] MEDS: AMITRIPTYLINE HCL 50 MG TABLET PO SCH (20:20)
[2021-02-01] MEDS: DIVALPROEX ER 500 MG TAB.ER.24H PO SCH (20:20)
[2021-02-01] MEDS: MELATONIN 3 MG TABLET PO SCH (20:20)
[2021-02-01] MEDS: traZODone 100 MG TABLET. PO PRN ×2 (20:26→23:41)
--- NOTE | 2021-02-01 21:44 | PDOC ---
Exam Note: Gus Note: Please also refer to the separate dictated note~for this date of service dictated separately.~Patient seen individually. Discussed the patient with Nursing staff reviewed the chart.~Reviewed interim history and current functioning. Reviewed vital signs,~Labs/ Radiology~and current medications noted below. Continue current treatment with the changes noted in the dictated addendum note Assessment: Vital Signs/I&O: Vital Signs Date Time Temp Pulse Resp B/P (MAP) Pulse Ox O2 Delivery O2 Flow Rate FiO2 02/01/21 17:42 64 126/76 02/01/21 05:59 97.2 18 98 Room Air I & O 01/31/21 01/31/21 02/01/21 15:00 23:00 07:00 Intake Total 840 ml 600 ml Balance 840 ml 600 ml Current Medications: Meds: Current Medications Medications (Trade) Dose Ordered Sig/Evaristo Route PRN Reason Start Time Stop Time Status Last Admin Dose Admin Fluvoxamine Maleate (Luvox) 50 mg QHS PO 02/01/21 21:00 02/01/21 20:26 I have reviewed the current psychotropics carefully including drug interactions. Risk benefit ratio favors no change other than as noted in my dictated progress note. Diagnosis: Problems: (1) Major neurocognitive disorder (2) Impulse control disorder, unspecified (3) Anxiety disorder, unspecified (4) Dementia, vascular, with depression (5) Dementia, vascular, with delusions (6) Dementia in Alzheimer's disease with depression (7) Dementia in Alzheimer's disease with delusions (8) Dementia of the Alzheimer's type with early onset with behavioral disturbance DONA BOTELLO MD Feb 01, 2021 21:44
[2021-02-01 22:31] VITALS: BP 147/84
--- NOTE | 2021-02-02 00:47 | NUR ---
Patient was wandering and compliant with medications taken whole. He was cooperative with assessment. Patient was noted to be walking in the hallway in the early evening, calm and pleasantly confused. Patient became restless in bed and was given PRN trazodone at 2100 and then again at 2330. He was also give PRN zyprexa for agitation. Patient was entering the hallway and talking outloud, looking for the travis. He is currently in the [facility] so he will not awaken other patients. He is walking back and forth and looking at the chairs. He stated he is waiting "for that travis" he is unable to state which travis. Will continue to monitor.
[2021-02-02] MEDS: hydrOXYzine HCL 25 MG TABLET PO PRN (01:38)
[2021-02-02] MEDS ORDERED: ACET325T21 PO (02:04)
[2021-02-02] MEDS ORDERED: AMIT25TA PO (02:05)
[2021-02-02] MEDS ORDERED: AMMO385C5 TP (02:06)
[2021-02-02] MEDS ORDERED: DIVA500T17 PO (02:06)
[2021-02-02] MEDS ORDERED: FOLI0.8C PO (02:07)
[2021-02-02] MEDS ORDERED: LACT1CAP21 PO (02:08)
[2021-02-02] MEDS ORDERED: MAG-19 PO (02:09)
[2021-02-02] MEDS ORDERED: MAGN24003 PO (02:09)
[2021-02-02] MEDS ORDERED: MELA3TAB43 PO (02:10)
[2021-02-02] MEDS ORDERED: MULT-114 PO (02:11)
[2021-02-02] MEDS ORDERED: METH28OI2 TP (02:11)
[2021-02-02] MEDS ORDERED: OLAN5TAB99 PO (02:12)
[2021-02-02] MEDS ORDERED: FLUV50TA2 PO (02:13)
[2021-02-02] MEDS ORDERED: HYDR25TA PO (02:14)
[2021-02-02] MEDS ORDERED: TRAZ-125 PO ×2 (02:15→02:16)
[2021-02-02] MEDS ORDERED: RISP0.5T62 PO (02:15)
[2021-02-02] MEDS ORDERED: TRAZ-120 PO ×2 (02:18→02:20)
--- NOTE | 2021-02-02 04:06 | NUR ---
PRN Trazodone x2 was not effective patient remains awake and does not appear to be tired. Patient continued to be restless in the west hallway, checking door handles and looking at room signs. He was observed crawling on the floor and was delusional, stating he was "looking for a travis that was supposed to be here". Nurse attempted to re-oreint him to time, situation and place but he did not understand and remained delusional. Patient given PRN zyprexa for psychosis and atarax for agitation per order. Patient laid down in hallway next to nurses station door. This nurse brought him a pillow and a blanket. He slept for a short time and then crawled over to a chair and attempted to get into it. Patient was very unsteady but continued to insist he was "waiting for his friend". This nurse assisted patient into the quiet room and onto the low mattress. Patient provided pillow and blanket and is sleeping at this time. Will continue to monitor.
[2021-02-02 05:29] VITALS: BP 121/73
--- NOTE | 2021-02-02 07:31 | PDOC ---
Exam Note: Gus Note: This note is a late entry for 02/01/2021 covers elements not covered in my initial note. Subjective: The patient was seen individually in the evening of 02/01/2021 with Cm OVIEDO, discussed and reviewed the chart. The patient slept 7-1/2 hours previous night. He was agitated previous night but better during the day today. He is ambulating up and down the hallway but redirects. I have been informed by staff that he has been accepted at nursing facility tomorrow. Review of Systems: No CV, , pulmonary, eye, ENT system symptoms on review. Mental Status Exam: The patient is oriented to himself. He followed me around the unit. Insight and judgment, recent and remote memory, attention and concentration, fund of knowledge is poor consistent with his diagnoses. Laboratory Data: Reviewed. Impression: Major neurocognitive disorder Alzheimer vascular with delusion, depression, behavioral disturbance. Anxiety disorder unspecified. Impulse control disorder unspecified. Plan: No change from initial note. Assessment: Vital Signs/I&O: Vital Signs Date Time Temp Pulse Resp B/P (MAP) Pulse Ox O2 Delivery O2 Flow Rate FiO2 02/02/21 05:29 97.5 66 20 121/73 (89) 97 Room Air I & O 02/01/21 02/01/21 02/02/21 15:00 23:00 07:00 Intake Total 720 ml 480 ml Balance 720 ml 480 ml Current Medications: Meds: Current Medications Medications (Trade) Dose Ordered Sig/Evaristo Route PRN Reason Start Time Stop Time Status Last Admin Dose Admin Acetaminophen (Tylenol) 650 mg PRN Q6HRS PRN PO MILD PAIN / TEMP > 100.3'F 11/25/20 18:00 01/31/21 20:08 Multi-Ingredient Ointment (Analgesic [place]) 1 addison PRN QID PRN TP MUSCLE PAIN 11/25/20 18:00 Al Hydroxide/Mg Hydroxide (Mylanta Plus Xs) 15 ml PRN AFTMEALHC PRN PO DYSPEPSIA 11/25/20 18:00 01/21/21 21:18 Magnesium Hydroxide (Milk Of Magnesia) 2,400 mg PRN QHS PRN PO CONSTIPATION 11/25/20 18:00 12/13/20 08:36 Amlodipine Besylate (Norvasc) 10 mg DAILY PO 11/26/20 09:00 02/01/21 08:33 Aspirin (Aspirin Chewable) 81 mg DAILY PO 11/26/20 09:00 02/01/21 08:34 Carvedilol (Coreg) 6.25 mg BIDWMEALS PO 11/25/20 18:30 02/01/21 17:42 Lisinopril (Prinivil) 10 mg DAILY PO 11/26/20 09:00 11/26/20 16:16 DC Quetiapine Fumarate (SEROquel) 25 mg QHS PO 11/25/20 21:00 12/23/20 17:23 DC 12/22/20 20:04 Tamsulosin HCl (Flomax) 0.4 mg DAILY PO 11/26/20 09:00 02/01/21 08:34 Amoxicillin (Amoxil) 500 mg [id number] PO 11/25/20 21:00 12/02/20 14:01 DC 12/02/20 14:15 Atorvastatin Calcium (Lipitor) 40 mg QHS PO 11/25/20 21:00 02/01/21 20:19 Folic Acid (Folic Acid) 1 mg DAILY PO 11/26/20 09:00 02/01/21 08:34 Lidocaine (Lidoderm) 1 patch DAILY TD 11/26/20 09:00 02/01/21 08:35 Multivitamins/ Calcium (Thera-M Plus) 1 tab DAILY PO 11/26/20 09:00 02/01/21 08:34 Thiamine HCl (Vitamin B-1) 100 mg BID PO 11/25/20 21:00 02/01/21 20:20 Olanzapine (ZyPREXA ZYDIS) 2.5 mg PRN Q2HR PRN PO PSYCHOSIS 11/25/20 21:15 02/02/21 01:38 Trazodone HCl (Desyrel) 50 mg PRN QHS PRN PO INSOMNIA, MAY REPEAT IN 1HR 11/25/20 21:15 01/03/21 16:48 DC 01/03/21 02:21 Mirtazapine (Remeron) 7.5 mg QHS PO 11/26/20 21:00 11/28/20 12:23 DC 11/27/20 20:00 Lactobacillus Rhamnosus (Culturelle) 1 cap BID PO 11/27/20 09:00 02/01/21 20:20 Sertraline HCl (Zoloft) 25 mg DAILY PO 11/28/20 09:00 11/30/20 09:01 DC 11/30/20 08:39 Sertraline HCl (Zoloft) 50 mg DAILY PO 12/01/20 09:00 12/03/20 11:00 DC 12/03/20 08:05 Mirtazapine (Remeron) 15 mg QHS PO 11/28/20 21:00 11/29/20 18:47 DC 11/28/20 19:38 Hydroxyzine HCl (Atarax) 25 mg PRN Q2HR PRN PO ABDOMINAL CRAMPS 11/28/20 21:45 02/02/21 01:38 Lorazepam (Ativan) 0.5 mg PRN Q4HRS PRN PO ANXIETY / AGITATION 11/28/20 21:45 11/29/20 21:45 DC Amitriptyline HCl (Elavil) 25 mg QHS PO 11/29/20 21:00 12/23/20 17:23 DC 12/22/20 20:04 Melatonin (Melatonin) 3 mg QHS PO 11/29/20 21:00 02/01/21 20:20 Sertraline HCl (Zoloft) 75 mg DAILY PO 12/04/20 09:00 01/14/21 18:05 DC 01/14/21 08:49 Divalproex Sodium (Depakote Er) 500 mg QHS PO 12/02/20 21:00 12/05/20 12:29 DC 12/04/20 20:08 Divalproex Sodium (Depakote Er) 1,000 mg QHS PO 12/05/20 21:00 02/01/21 20:20 Quetiapine Fumarate (SEROquel) 12.5 mg DAILY PO 12/17/20 09:00 12/18/20 16:46 DC 12/18/20 08:01 Quetiapine Fumarate (SEROquel) 12.5 mg [id number] PO 12/19/20 09:00 12/23/20 17:23 DC 12/23/20 13:28 Quetiapine Fumarate (SEROquel) 25 mg TID PO 12/23/20 17:30 01/08/21 16:44 DC 01/08/21 12:48 Amitriptyline HCl (Elavil) 50 mg QHS PO 12/23/20 21:00 02/01/21 20:20 Furosemide (Lasix) 80 mg 1X ONCE PO 12/30/20 16:30 12/30/20 16:31 DC 12/30/20 16:27 Trazodone HCl (Desyrel) 100 mg QHS PO 01/03/21 21:00 02/01/21 20:19 Trazodone HCl (Desyrel) 100 mg PRN QHS PRN PO INSOMNIA, 01/03/21 17:00 02/01/21 23:41 Lactic Acid (Lac-Hydrin) 1 addison BID TP 01/07/21 21:00 02/01/21 09:00 Quetiapine Fumarate (SEROquel) 37.5 mg TID PO 01/08/21 21:00 01/15/21 16:18 DC 01/15/21 14:31 Sertraline HCl (Zoloft) 100 mg DAILY PO 01/15/21 09:00 01/29/21 12:58 DC 01/29/21 07:51 Risperidone (RisperDAL) 0.25 mg 0900,1300,1700 PO 01/16/21 09:00 01/17/21 18:15 DC 01/17/21 17:49 Risperidone (RisperDAL) 0.5 mg 1X PO 01/15/21 16:30 01/17/21 18:19 DC 01/15/21 16:25 Risperidone (RisperDAL) 0.25 mg 0900,1700 PO 01/18/21 09:00 01/18/21 18:47 DC 01/18/21 17:31 Risperidone (RisperDAL) 0.5 mg 1300 PO 01/18/21 13:00 01/18/21 18:47 DC 01/18/21 13:04 Risperidone (RisperDAL) 0.5 mg 0900,1300,1700 PO 01/19/21 09:00 02/01/21 17:08 Trazodone HCl (Desyrel) 12.5 mg 0900,1300,1700 PO 01/20/21 17:00 01/21/21 18:14 DC 01/21/21 17:19 Trazodone HCl (Desyrel) 12.5 mg 1300 PO 01/22/21 13:00 02/01/21 12:42 Trazodone HCl (Desyrel) 25 mg 0900,1700 PO 01/22/21 09:00 02/01/21 17:08 Magnesium Citrate (Citroma) 296 ml 1X ONCE PO 01/28/21 18:00 01/28/21 18:02 DC 01/28/21 18:00 Fluvoxamine Maleate (Luvox) 25 mg QHS PO 01/29/21 21:00 01/31/21 21:01 DC 01/31/21 20:07 Fluvoxamine Maleate (Luvox) 50 mg QHS PO 02/01/21 21:00 02/01/21 20:26 Current Medications Medications (Trade) Dose Ordered Sig/Evaristo Route PRN Reason Start Time Stop Time Status Last Admin Dose Admin Fluvoxamine Maleate (Luvox) 50 mg QHS PO 02/01/21 21:00 02/01/21 20:26 I have reviewed the current psychotropics carefully including drug interactions. Risk benefit ratio favors no change other than as noted in my dictated progress note. Diagnosis: Problems: (1) Impulse control disorder, unspecified (2) Anxiety disorder, unspecified (3) Dementia, vascular, with depression (4) Dementia, vascular, with delusions (5) Dementia in Alzheimer's disease with depression (6) Dementia in Alzheimer's disease with delusions (7) Dementia of the Alzheimer's type with early onset with behavioral disturbance (8) Major neurocognitive disorder DONA BOTELLO MD Feb 02, 2021 07:31
[2021-02-02 08:01] VITALS: BP 121/73
[2021-02-02] MEDS: amLODIPine BESYLATE 10 MG TABLET PO SCH (08:01)
[2021-02-02] MEDS: CARVEDILOL 6.25 MG TABLET PO SCH (08:01)
[2021-02-02] MEDS: THIAMINE 100 MG TABLET. PO SCH (08:02)
[2021-02-02] MEDS: MULTIVITAMIN with MINERAL TABLET. PO SCH (08:02)
[2021-02-02] MEDS: risperiDONE 0.5 MG TABLET. PO SCH (08:02)
[2021-02-02] MEDS: LACTOBACILLUS RHAMNOSUS GG 1 CAPSULE. PO SCH (08:02)
[2021-02-02] MEDS: ASPIRIN CHEWABLE 81 MG TABLET. PO SCH (08:02)
[2021-02-02] MEDS: FOLIC ACID 1 MG TABLET PO SCH (08:02)
[2021-02-02] MEDS: TAMSULOSIN 0.4 MG CAP.ER.24H. PO SCH (08:02)
[2021-02-02] MEDS: traZODone 50 MG TABLET. PO SCH (08:02)
[2021-02-02] MEDS: LIDOCAINE (700MG/PATCH) PATCH. TD SCH (08:03)
[2021-02-02] MEDS: AMMONIUM LACTATE 12% TOPICAL LOTION 226GM BOTTLE. TP SCH (08:11)
--- NOTE | 2021-02-02 10:23 | NUR ---
Transition Record was faxed to follow-up provider with the following elements: Reason for admission, procedures, tests, principal diagnosis, pending studies, patient instructions, 17/06 contact information for unit, phone number to obtain pending test results, plan for follow-up care, physician follow-up, advanced directive information, and medication list with dose, duration and instructions. This information was included in the following documents: History and physical, lab results, study results, progress notes, social work planning form, DC instruction form, patient visit summary, and medication reconciliation form. Date & time record faxed:02/01/21 Record faxed to: Daryn Awan Record discussed with/ report given to: PREET Kaufman-Verified paperwork received.
--- NOTE | 2021-02-02 21:06 | PDOC ---
Exam Note: Gus Note: Please also refer to the separate dictated note~for this date of service dictated separately.~Patient seen individually. Discussed the patient with Nursing staff reviewed the chart.~Reviewed interim history and current functioning. Reviewed vital signs,~Labs/ Radiology~and current medications noted below. Continue current treatment with the changes noted in the dictated addendum note Assessment: Vital Signs/I&O: Vital Signs Date Time Temp Pulse Resp B/P (MAP) Pulse Ox O2 Delivery O2 Flow Rate FiO2 02/02/21 08:01 66 121/73 02/02/21 05:29 97.5 20 97 Room Air I & O 02/01/21 02/01/21 02/02/21 15:00 23:00 07:00 Intake Total 720 ml 480 ml Balance 720 ml 480 ml Current Medications: Meds: Current Medications Medications (Trade) Dose Ordered Sig/Evaristo Route PRN Reason Start Time Stop Time Status Last Admin Dose Admin Acetaminophen (Tylenol) 650 mg PRN Q6HRS PRN PO MILD PAIN / TEMP > 100.3'F 11/25/20 18:00 02/02/21 10:26 DC 01/31/21 20:08 Multi-Ingredient Ointment (Analgesic [place]) 1 addison PRN QID PRN TP MUSCLE PAIN 11/25/20 18:00 02/02/21 10:26 DC Al Hydroxide/Mg Hydroxide (Mylanta Plus Xs) 15 ml PRN AFTMEALHC PRN PO DYSPEPSIA 11/25/20 18:00 02/02/21 10:26 DC 01/21/21 21:18 Magnesium Hydroxide (Milk Of Magnesia) 2,400 mg PRN QHS PRN PO CONSTIPATION 11/25/20 18:00 02/02/21 10:26 DC 12/13/20 08:36 Amlodipine Besylate (Norvasc) 10 mg DAILY PO 11/26/20 09:00 02/02/21 10:26 DC 02/02/21 08:01 Aspirin (Aspirin Chewable) 81 mg DAILY PO 11/26/20 09:00 02/02/21 10:26 DC 02/02/21 08:02 Carvedilol (Coreg) 6.25 mg BIDWMEALS PO 11/25/20 18:30 02/02/21 10:26 DC 02/02/21 08:01 Lisinopril (Prinivil) 10 mg DAILY PO 11/26/20 09:00 11/26/20 16:16 DC Quetiapine Fumarate (SEROquel) 25 mg QHS PO 11/25/20 21:00 12/23/20 17:23 DC 12/22/20 20:04 Tamsulosin HCl (Flomax) 0.4 mg DAILY PO 11/26/20 09:00 02/02/21 10:26 DC 02/02/21 08:02 Amoxicillin (Amoxil) 500 mg [id number] PO 11/25/20 21:00 12/02/20 14:01 DC 12/02/20 14:15 Atorvastatin Calcium (Lipitor) 40 mg QHS PO 11/25/20 21:00 02/02/21 10:26 DC 02/01/21 20:19 Folic Acid (Folic Acid) 1 mg DAILY PO 11/26/20 09:00 02/02/21 10:26 DC 02/02/21 08:02 Lidocaine (Lidoderm) 1 patch DAILY TD 11/26/20 09:00 02/02/21 10:26 DC 02/02/21 08:03 Multivitamins/ Calcium (Thera-M Plus) 1 tab DAILY PO 11/26/20 09:00 02/02/21 10:26 DC 02/02/21 08:02 Thiamine HCl (Vitamin B-1) 100 mg BID PO 11/25/20 21:00 02/02/21 10:26 DC 02/02/21 08:02 Olanzapine (ZyPREXA ZYDIS) 2.5 mg PRN Q2HR PRN PO PSYCHOSIS 11/25/20 21:15 02/02/21 10:26 DC 02/02/21 01:38 Trazodone HCl (Desyrel) 50 mg PRN QHS PRN PO INSOMNIA, MAY REPEAT IN 1HR 11/25/20 21:15 01/03/21 16:48 DC 01/03/21 02:21 Mirtazapine (Remeron) 7.5 mg QHS PO 11/26/20 21:00 11/28/20 12:23 DC 11/27/20 20:00 Lactobacillus Rhamnosus (Culturelle) 1 cap BID PO 11/27/20 09:00 02/02/21 10:26 DC 02/02/21 08:02 Sertraline HCl (Zoloft) 25 mg DAILY PO 11/28/20 09:00 11/30/20 09:01 DC 11/30/20 08:39 Sertraline HCl (Zoloft) 50 mg DAILY PO 12/01/20 09:00 12/03/20 11:00 DC 12/03/20 08:05 Mirtazapine (Remeron) 15 mg QHS PO 11/28/20 21:00 11/29/20 18:47 DC 11/28/20 19:38 Hydroxyzine HCl (Atarax) 25 mg PRN Q2HR PRN PO ABDOMINAL CRAMPS 11/28/20 21:45 02/02/21 10:26 DC 02/02/21 01:38 Lorazepam (Ativan) 0.5 mg PRN Q4HRS PRN PO ANXIETY / AGITATION 11/28/20 21:45 11/29/20 21:45 DC Amitriptyline HCl (Elavil) 25 mg QHS PO 11/29/20 21:00 12/23/20 17:23 DC 12/22/20 20:04 Melatonin (Melatonin) 3 mg QHS PO 11/29/20 21:00 02/02/21 10:26 DC 02/01/21 20:20 Sertraline HCl (Zoloft) 75 mg DAILY PO 12/04/20 09:00 01/14/21 18:05 DC 01/14/21 08:49 Divalproex Sodium (Depakote Er) 500 mg QHS PO 12/02/20 21:00 12/05/20 12:29 DC 12/04/20 20:08 Divalproex Sodium (Depakote Er) 1,000 mg QHS PO 12/05/20 21:00 02/02/21 10:26 DC 02/01/21 20:20 Quetiapine Fumarate (SEROquel) 12.5 mg DAILY PO 12/17/20 09:00 12/18/20 16:46 DC 12/18/20 08:01 Quetiapine Fumarate (SEROquel) 12.5 mg [id number] PO 12/19/20 09:00 12/23/20 17:23 DC 12/23/20 13:28 Quetiapine Fumarate (SEROquel) 25 mg TID PO 12/23/20 17:30 01/08/21 16:44 DC 01/08/21 12:48 Amitriptyline HCl (Elavil) 50 mg QHS PO 12/23/20 21:00 02/02/21 10:26 DC 02/01/21 20:20 Furosemide (Lasix) 80 mg 1X ONCE PO 12/30/20 16:30 12/30/20 16:31 DC 12/30/20 16:27 Trazodone HCl (Desyrel) 100 mg QHS PO 01/03/21 21:00 02/02/21 10:26 DC 02/01/21 20:19 Trazodone HCl (Desyrel) 100 mg PRN QHS PRN PO INSOMNIA, 01/03/21 17:00 02/02/21 10:26 DC 02/01/21 23:41 Lactic Acid (Lac-Hydrin) 1 addison BID TP 01/07/21 21:00 02/02/21 10:26 DC 02/02/21 08:11 Quetiapine Fumarate (SEROquel) 37.5 mg TID PO 01/08/21 21:00 01/15/21 16:18 DC 01/15/21 14:31 Sertraline HCl (Zoloft) 100 mg DAILY PO 01/15/21 09:00 01/29/21 12:58 DC 01/29/21 07:51 Risperidone (RisperDAL) 0.25 mg 0900,1300,1700 PO 01/16/21 09:00 01/17/21 18:15 DC 01/17/21 17:49 Risperidone (RisperDAL) 0.5 mg 1X PO 01/15/21 16:30 01/17/21 18:19 DC 01/15/21 16:25 Risperidone (RisperDAL) 0.25 mg 0900,1700 PO 01/18/21 09:00 01/18/21 18:47 DC 01/18/21 17:31 Risperidone (RisperDAL) 0.5 mg 1300 PO 01/18/21 13:00 01/18/21 18:47 DC 01/18/21 13:04 Risperidone (RisperDAL) 0.5 mg 0900,1300,1700 PO 01/19/21 09:00 02/02/21 10:26 DC 02/02/21 08:02 Trazodone HCl (Desyrel) 12.5 mg 0900,1300,1700 PO 01/20/21 17:00 01/21/21 18:14 DC 01/21/21 17:19 Trazodone HCl (Desyrel) 12.5 mg 1300 PO 01/22/21 13:00 02/02/21 10:26 DC 02/01/21 12:42 Trazodone HCl (Desyrel) 25 mg 0900,1700 PO 01/22/21 09:00 02/02/21 10:26 DC 02/02/21 08:02 Magnesium Citrate (Citroma) 296 ml 1X ONCE PO 01/28/21 18:00 01/28/21 18:02 DC 01/28/21 18:00 Fluvoxamine Maleate (Luvox) 25 mg QHS PO 01/29/21 21:00 01/31/21 21:01 DC 01/31/21 20:07 Fluvoxamine Maleate (Luvox) 50 mg QHS PO 02/01/21 21:00 02/02/21 10:26 DC 02/01/21 20:26 I have reviewed the current psychotropics carefully including drug interactions. Risk benefit ratio favors no change other than as noted in my dictated progress note. Diagnosis: Problems: (1) Impulse control disorder, unspecified (2) Anxiety disorder, unspecified (3) Dementia, vascular, with depression (4) Dementia, vascular, with delusions (5) Dementia in Alzheimer's disease with depression (6) Dementia in Alzheimer's disease with delusions (7) Dementia of the Alzheimer's type with early onset with behavioral disturbance (8) Major neurocognitive disorder DONA BOTELLO MD Feb 02, 2021 21:06
--- NOTE | 2021-02-02 22:52 | DS ---
DATE OF DISCHARGE: 02/02/2021 DISCHARGE SUMMARY/PSYCHIATRY PROGRESS NOTE REASON FOR ADMISSION: Please refer to the admission history for details. Briefly, the patient is an 80-year-old male referred to us from [facility] where he presented from home on account of worsening confusion, dangerous, unmanageable behaviors since he was living alone after his girlfriend of 15 years . She has been taking care of him for many years. The patient was found at home, intoxicated. Behaviors were deemed dangerous, unmanageable sent to [facility] and then to us. SIGNIFICANT FINDINGS AND CLINICAL COURSE: Following admission, the patient was seen daily individually by myself from a psychiatric standpoint, medical followup with Dr. Aggarwal/Dr. Dowling and the patient was extremely confused, agitated, paranoid, aggressive. Adjustments were made in his psychotropics and he seemed to respond to a combination of Risperdal 0.5 mg 0900, 1300, 1700, Zyprexa p.r.n., trazodone 25 mg, 0900, 1700; 12.5 mg 1300; 100 mg at bedtime, march repeat x 2. He is also on Luvox 50 mg daily, Atarax p.r.n., amitriptyline 50 mg at bedtime for his insomnia since he had failed other interventions for insomnia. Melatonin 3 mg at bedtime, Depakote ER 1000 mg at bedtime. Valproic acid level therapeutic at 53. REVIEW OF SYSTEMS: Prior to discharge, no CV, , pulmonary, eye, ENT system symptoms on review. Reliability poor. MENTAL STATUS EXAM: Oriented to himself. Insight, judgment, recent and remote memory, attention, concentration, fund of knowledge poor, consistent with his diagnosis. FINAL DIAGNOSES: Major neurocognitive disorder, Alzheimer, vascular with delusion, depression, behavioral disturbance; anxiety disorder, unspecified; impulse control disorder, unspecified. Rest unchanged from admission. DISCHARGE MEDICATIONS: Please refer to the MRAD. DISCHARGE INSTRUCTIONS: Outpatient psychiatric and medical followup at the halfway. Time for discharge day management greater than 30 minutes. MAN Leena BOTELLO MD DR: CHRISTINA/roxy JOB#: [id number] / [id number]
== END 2021-02-02 10:05 | DRG 57 ==
LOC: GEROPSY 15:25
PROVIDERS: ADMIT Psychiatry & Neurology Psychiatry; ATTEND Psychiatry & Neurology Psychiatry
DX: G30.9 Alzheimer's disease, unspecified (principal); F05 Delirium due to known physiological condition; F01.51 Vascular dementia, unspecified severity, with behavioral disturbance; I48.20 Chronic atrial fibrillation, unspecified; F02.81 Dementia in other diseases classified elsewhere, unspecified severity, with behavioral disturbance; N39.0 Urinary tract infection, site not specified; N40.0 Benign prostatic hyperplasia without lower urinary tract symptoms; Z96.653 Presence of artificial knee joint, bilateral; Z96.642 Presence of left artificial hip joint; F41.9 Anxiety disorder, unspecified; F32.9 Major depressive disorder, single episode, unspecified; F63.9 Impulse disorder, unspecified; E78.5 Hyperlipidemia, unspecified; G47.00 Insomnia, unspecified; I10 Essential (primary) hypertension; N28.9 Disorder of kidney and ureter, unspecified; Z20.822 Contact with and (suspected) exposure to COVID-19; Z95.0 Presence of cardiac pacemaker; Z87.440 Personal history of urinary (tract) infections; Z79.899 Other long term (current) drug therapy; Z91.83 Wandering in diseases classified elsewhere
CPT/HCPCS: 36415; 74018; 76870; 80053; 80061; 80164; 81001; 82140; 82306; 82607; 83036; 83540; 83550; 83735; 83880; 84436; 84443; 84480; 85007; 85025; 85027; 85379; 86592; U0003; 97530